=== PATIENT | male | born 1950 | race Caucasian/White ===

== ENCOUNTER → 2019-01-04 07:42 | Outpatient (CLI) | payer BC, SELFPAY ==
--- NOTE | 2019-01-04 07:48 | US_ITS ---
STUDY: ABDOMINAL ULTRASOUND - RIGHT UPPER QUADRANT REASON FOR VISIT: Male, 68 years old. Fatty liver, history of kidney stones TECHNIQUE: Ultrasound evaluation of the right upper quadrant was performed with real-time and static ozuna-scale imaging. TECHNICAL QUALITY: Adequate. COMPARISON: Prior ultrasound of the liver dated 11/12/2017 FINDINGS: Liver: The liver measures 15.9 cm. There is increased echogenicity consistent with fatty infiltration. The bile ducts are within normal limits. There is hepatic color flow. The direction of portal flow is hepatopetal. There is no demonstrated mass lesion. Gallbladder: Normal distended gallbladder. The gallbladder wall measures 2.6 mm. There is a negative sonographic Pineda's sign. There is no pericholecystic fluid. There are no gallstones. Common Bile Duct (C.B.D.): The common bile duct measures 3.2 mm. Pancreas: Normal size of the head, body and tail of the pancreas. There is increased echogenicity of the pancreas. There is no demonstrated pancreatic mass or cyst. Right Kidney: Normal size of the right kidney. The right kidney measures 11.4 x 5.9 x 5.1 cm. Normal renal cortex. The right cortex measures 1.1 cm. There is a right renal cyst measuring 4.7 x 5.1 x 4.2 cm. There are 2 right renal calculi measuring 3 and 5 mm respectively. There is no right hydronephrosis. US/Liver IMPRESSION: 1. Hepatic steatosis. 2. Echogenic pancreas suggestive of fatty replacement. 3. Right renal cyst. 4. Nonobstructing right renal calculi. Electronically Signed: Dmitriy Olmedo MD at 20:07 EST , Service support ,
== END ==
PROVIDERS: Family Provider Internal Medicine; PCP Internal Medicine; Referring Provider Internal Medicine; Visit Provider Internal Medicine
DX: K76.0 Fatty (change of) liver, not elsewhere classified (principal)
CPT/HCPCS: 76705

== ENCOUNTER → 2019-02-23 12:29 | Outpatient (CLI) | payer SELFPAY ==
--- NOTE | 2019-02-23 12:32 | CT_ITS ---
STUDY: CT CHEST WITHOUT CONTRAST REASON FOR EXAM: Male, 68 years old. Hyperlipidemia. Calcium scoring examination. Radiological over read study. RADIATION DOSAGE (If Supplied By Facility): CTDIvol = ( 12.19 ) mGy, DLP = ( 195.04 ) mGycm TECHNIQUE: Transaxial imaging was performed without the administration of intravenous contrast material. Individualized dose optimization techniques were used for this CT. COMPARISON: Comparison is made with prior study to July 30, 2016. FINDINGS: Stable increased markings at the lung bases with dense of bronchiectasis suggestive of chronic interstitial fibrosis. There is no demonstrated pleural abnormality. There are calcifications of the coronary arteries. There are multiple small lymph nodes within the mediastinum, which are normal in size and morphology most compatible with reactive lymph hyperplasia. Normal hilar regions. Normal unenhanced pulmonary arteries. There is atherosclerotic calcification of the aortic arch. There are multi-level degenerative changes of the thoracic spine. There is no demonstrated abnormality of the visualized upper abdomen. CT/Limited Chest CT w/CCTA IMPRESSION: Stable scarring and bronchiectasis in the lower lobes worse on the left side with areas of confluence. Coronary artery calcification. Electronically Signed: Harinder Melton, at 14:46 EDT , Service support ,
[2019-02-23 12:40] VITALS: BP 119/80; PULSE 56; RESP 16; O2SAT 96; BMI 28.4
--- NOTE | 2019-02-23 13:54 | CA.SCORE ---
Calcium Scoring Date of Study:: 02/23/19 Coronary Calcium Scoring: High-resolution Computed Tomographic imaging of the chest was performed on [02/23/2019 ], with particular attention paid to the coronary arteries. Images from the examination were analyzed for the presence and extent of coronary artery calcification , using coronary calcium quantification software. The patient tolerated the procedure well and there were no complications. The results of the coronary calcification analysis are provided below. - Findings Left Main (LM): 109 Left Anterior Descending (LAD): 38.1 Left Circumflex (LCX): 0 Right Coronary Artery (RCA): 212 Total Agatston Score: 359 - Conclusion Calcium Scoring Interpretation: Calcium Score Interpretation 0 No identifiable atherosclerotic plaque. Very low cardiovascular disease risk. <5% chance of presence coronary artery disease A Negative Examination 1-10 Minimal Plaque burden. Significant coronary artery disease very unlikely. 11-100 Mild plaque burden. Likely mild or minimal coronary atherosclerosis. 101-400 Moderate plaque burden Moderate non-obstructive coronary artery disease highly likely. Over 400 Extensive plaque burden. High likelihood of at least one significant coronary stenosis (>50% diameter) Coronary calcium score of 359 falls within the range of 101-400. This suggest moderate plaque burden, moderate nonobstructive coronary artery disease is highly likely. The total calcium score is between the 50th and 70th percentile for men between the ages of 65 and 69. (Exact percentile calculated to be 60%; this means 59% of the population has a lower calcium score and 40% of the population is a higher calcium score than this patient. Would recommend clinical correlation or alternative mode of testing if coronary occlusive disease is strongly suspected.
== END ==
PROVIDERS: Family Provider Internal Medicine; PCP Internal Medicine; Referring Provider Internal Medicine; Visit Provider Internal Medicine
DX: E78.5 Hyperlipidemia, unspecified (principal)
CPT/HCPCS: 75571; 76380

== ENCOUNTER 2019-03-16 19:47 | Emergency (ER) | payer BC, SELFPAY ==
[2019-02-23 12:40] VITALS: BMI 28.4
[2019-03-16 19:49] VITALS: BP 141/98; PULSE 70; PULSE 74; RESP 15; RESP 18; TEMP 36.8; O2SAT 96; O2SAT 97; BMI 28.7
--- NOTE | 2019-03-16 20:40 | CT_ITS ---
STUDY: CT ABDOMEN AND PELVIS WITHOUT CONTRAST REASON FOR EXAM: Male, 68 years old. LT FLANK Pain, has KNOWN BILATERAL KIDNEY STONES RADIATION DOSAGE (If Supplied By Facility): CTDIvol = ( 9.61 ) mGy, DLP = ( 566.94 ) mGycm TECHNIQUE: Transaxial images were obtained from the dome of the diaphragm to the symphysis pubis without oral contrast, and without intravenous contrast. Sagittal and coronal images were reconstructed. Individualized dose optimization techniques were used for this CT. COMPARISON: None. FINDINGS: Limited views through the lower chest show prominent streaky densities consistent with subsegmental atelectasis and/or scarring. Normal liver. Normal gallbladder and extrahepatic biliary system. Normal spleen. Normal pancreas. Normal bilateral adrenal glands. Both kidneys show very numerous renal stones in all segments. On the right, no acute abnormalities are seen. Numerous stones are seen in all segments measuring as much as 6 mm. There is a 5 cm posterior cyst. There is no hydronephrosis. On the left there is enlargement of the kidney consistent with edema. There is perinephric stranding. There is mild hydronephrosis. There is mild hydroureter. Findings are related to a 4 mm distal left ureteral calculus just prior to the UVJ, seen on axial image 179 and coronal image 84. Numerous additional nonobstructing stones are seen in all segments measuring as much as 3 mm. Evaluation of the GI tract is limited by absence of oral contrast. Cannot exclude stomach wall thickening. No dilated loops of bowel or evidence for obstruction. Cannot exclude segmental thickening of the hill of the small or large bowel. Cannot exclude enteritis or colitis. Moderate diffuse fecal retention. Appendix is not seen. Normal abdominal aorta. Normal inferior vena cava. Normal retroperitoneum. Normal urinary bladder. There is enlargement of the prostate gland. Normal abdominal wall. There are diffuse degenerative changes of the visualized lumbar spine. CT/Abdomen/Pelvis without Cont IMPRESSION: Obstruction of the left kidney collecting system and ureter from a 4 mm distal ureteral calculus. Very numerous other bilateral renal stones in all segments. Electronically Signed: Tomasz Hicks MD at 21:43 EDT , Service support ,
--- NOTE | 2019-03-16 20:51 | ED.VISSUMM ---
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 that condition is stable while there because of the flank pain he had a CT that showed multiple kidney stones in left kidney and 1 3 mm stone in the lower area of his abdomen per his history, he has a prior history of kidney stones 2 or 3 years ago, his general health and other medical conditions are unremarkable and stable, his only complaint right now is left flank pain Physical Examination: [] Vital signs unremarkable afebrile General, no distress resting comfortably HEENT is generally unremarkable The neck is supple no adenopathy Cardiovascular, regular rate and rhythm Lungs, clear bilateral Abdomen, soft nontender but complains of vague left flank pain left upper back around the flank into the left lower abdomen with no rebound guarding organomegaly Extremities, no clubbing cyanosis or edema Neurologic, awake alert answering questions appropriately moving all 4 extremities Test Results: [] Emergency Department Course and Treatment: [] Prior CT showed the above given all the above screening labs no prior imaging at this facility repeat CT pain management Treatment Plan: [] Screening labs generally unremarkable except creatinine is 1.95, elevated from 1.25 baseline,see those reports, CT scan shows numerous kidney stones in the kidney, 4 mm obstructing stone left UVJ see all those reports on reevaluation is resting comfortably discussed all the above with him he is comfortable discharge home he will be given Percocet flow max and asked to follow-up with [facility] in a few days return for change in symptoms Disposition: [] Home stable Impression: [] 4 mm left obstructing kidney stone, left flank pain This note was generated with [employer] software. It may contain incorrect words, spelling, and punctuation that were not noted in review of the chart prior to signing ED Disposition - Plan for ED Patient: Referrals: Tanya Pettit, [Primary Care Provider] -
[2019-03-16 20:52] LABS: Bacteria 0 SEEN /hpf (None Seen); Mucous, Urine 0 SEEN /hpf (<or=2+); Red Blood Cells-Urine 0 SEEN /hpf (0-5); White Blood Cells 0 SEEN /hpf (0-5)
[2019-03-16] MEDS: Ondansetron 4 MG/2 ML Vial IV (20:53)
[2019-03-16] MEDS: morphine 8 MG/ML Syringe IV (20:53)
[2019-03-16 21:01] LABS: Color, Urine Yellow (Yellow); Glucose, Dipstick Normal (Normal); Ketone-Dipstick 5 mg/dl (Negative); Leukocyte Esterase-Dipstick Negative /ul (Negative); Nitrite-Dipstick Negative (Negative); Occult Blood-Urine Negative /ul (Negative); Protein-Dipstick Negative (Negative); Specific Gravity, Urine 1.015 (1.002-1.030); Urine Bilirubin Dipstick Negative (Negative); Urine Clarity Clear (Clear); Urine Urobilinogen Normal (Normal)
[2019-03-16 21:13] LABS: Absolute Lymphocyte Count 0.52 X10^3/ul (0.83-4.51); Absolute Neutrophil Count 10.2 X10^3/uL (2.0-7.7); Basophil# 0.03 X10^3/uL; Basophil% 0.2 % (0-1); Eosinophil# 0.11 X10^3/uL; Eosinophils% 0.9 % (0-5); Hematocrit 48.5 % (40-54); Lymphocyte # 0.52 X10^3/ul (4.0); Lymphocyte % 4.3 % (19-41); Mean Corpuscular Hgb 30.1 pg (27.0-32.0); Mean Corpuscular Volume 91.3 fL (80-94); Mean Platelet Vol. 9.4 fl (6.2-12.0); Monocyte# 1.29 X10^3/uL; Monocyte% 10.6 % (0-10); Neutrophil # 10.16 X10^3/uL (2.7-7.7); Neutrophil % 83.6 % (47-70); Platelet Count 246 K/mm3 (150-450); RBC Distribution Width CV 14.1 % (11.6-14.6); RBC Distribution Width SD 46.4 fl (35.1-43.9); Red Blood Count 5.31 M/mm3 (4.6-6.2); White Blood Count 12.2 K/mm3 (4.4-11.0)
[2019-03-16 21:14] LABS: Differential Indicated SCAN CRITERIA MET; POSITIVE COUNT NO; POSITIVE DIFFERENTIAL YES; POSITIVE MORPHOLOGY NO
[2019-03-16 21:30] LABS: Squamous Epithelial Cells - UA 0-5 SEEN /hpf (0-5)
[2019-03-16 21:33] LABS: AST(SGOT) 11 U/L (15-37); Alanine Aminotransfer ALT/SGPT 20 U/L (16-61); Albumin, Serum 3.9 g/dL (3.2-5.0); Alkaline Phosphatase 63 U/L (45-117); Anion Gap 7 (5-15); BUN 20 mg/dL (7-18); BUN/Creat Ratio 10.3 RATIO (10-20); Bilirubin, Direct 0.25 mg/dL (0.00-0.30); Calcium,Total 8.7 mg/dL (8.5-10.1); Chloride 104 mmol/L (98-107); Creatinine, Serum 1.95 mg/dL (0.70-1.30); EST Glomerular Filtration Rate 37 mL/min (>60); Est Glom Filt Rate - Afr Amer 44 mL/min (>60); Estimated Creatinine Clearance 38.48 ml/min; Globulin 3.7 g/dL (2.2-4.2); Glucose 103 mg/dL (74-106); Lipase 104 U/L (73-393); Potassium 4.1 mmol/L (3.5-5.1); Protein, Total 7.6 g/dL (6.4-8.2); Sodium Level 139 mmol/L (136-145)
[2019-03-16 21:34] LABS: Differential Comment SCANNED
[2019-03-16 21:48] VITALS: BP 135/76; PULSE 83; RESP 14; O2SAT 99
--- NOTE | 2019-03-16 22:14 | ED.DEP ---
ED Disposition - Plan for ED Patient: Instructions: ED Stone Renal W Colic Prescriptions: Oxycodone HCl/Acetaminophen [Percocet 5/325] 1 tab PO Q6H PRN PRN 3 Days #12 tab PRN Reason: Pain Tamsulosin HCl [Flomax] 0.4 mg PO DAILY #7 cap Referrals: Tanya Pettit DO [Primary Care Provider] - Devon Bullard MD [STAFF PHYSICIAN] -
[2019-03-16] MEDS: Ketorolac 30 MG/ML Syringe IV (22:30)
[2019-03-16 22:43] VITALS: BP 131/76; PULSE 81; RESP 12; O2SAT 98
== END 2019-03-16 22:44 | disposition home or self-care (01) ==
LOC: ED 20:54
PROVIDERS: Emergency Provider Emergency Medicine; Family Provider Internal Medicine; PCP Internal Medicine
DX: N13.2 Hydronephrosis with renal and ureteral calculous obstruction (principal); Z87.442 Personal history of urinary calculi
CPT/HCPCS: 74176; 80048; 80076; 81001; 83690; 85025; 96374; 96375; 99283; A4216; J2405

== ENCOUNTER → 2019-03-23 | Outpatient (CLI) | payer BC, SELFPAY ==
[2019-03-16 19:49] VITALS: BMI 28.7
[2019-03-30 12:07] LABS: Ca Oxalate, Monohydrate 95 % (.); Size 3x3x3 mm (.)
== END | disposition home or self-care (01) ==
LOC: LABSPEC 17:04
PROVIDERS: Family Provider Internal Medicine; PCP Internal Medicine; Referring Provider Urology; Visit Provider Urology
DX: N20.0 Calculus of kidney (principal)
CPT/HCPCS: 82360

== ENCOUNTER 2019-09-16 15:24 | Emergency (ER) | payer BC, SELFPAY ==
[2019-09-16 15:24] VITALS: BP 161/83; PULSE 103; RESP 16; TEMP 37.4; O2SAT 96; BMI 29.2
--- NOTE | 2019-09-16 15:40 | CT_ITS ---
STUDY: CT ABDOMEN AND PELVIS WITHOUT CONTRAST REASON FOR EXAM: Male, 68 years old. Right-sided abdominal pain for 2 days with history of kidney stones RADIATION DOSAGE (If Supplied By Facility): CTDIvol = ( 11.15 ) mGy, DLP = ( 646.09 ) mGycm TECHNIQUE: Transaxial images were obtained from the dome of the diaphragm to the symphysis pubis without oral contrast, and without intravenous contrast. Sagittal and coronal images were reconstructed. Individualized dose optimization techniques were used for this CT. COMPARISON: 03/16/2019 FINDINGS: There are chronic interstitial fibrotic changes of the lung bases. The visualized portions of the heart are within normal limits. Normal liver. Normal gallbladder and extrahepatic biliary system. Normal spleen. Normal pancreas. Normal bilateral adrenal glands. Bilateral renal calculi overall similar. There is mild right hydronephrosis with a 3 mm calculus just above the right UVJ on image 182. Simple cyst of the medial right kidney is stable. Normal visualized stomach. Normal small intestine. The colon is nondistended. There is non-visualization of the appendix. There is diffuse atherosclerotic calcification of the abdominal aorta, without a demonstrated aneurysm. Normal inferior vena cava. Normal retroperitoneum. Urinary bladder is nondistended. Bladder wall thickening cannot be excluded. There is enlargement of the prostate gland. Normal abdominal wall. There are diffuse degenerative changes of the visualized lumbar spine. Similar degenerative retrolisthesis of L3 in relation to L4. CT/Abdomen/Pelvis without Cont IMPRESSION: 1. Distal right ureter calculus (3 mm) with mild hydronephrosis/hydroureter 2. Bilateral nephrolithiasis. Electronically Signed: Justice Rose MD (Bro[place]) at 16:47 EDT , Service support ,
[2019-09-16] MEDS: 0.9% Normal Saline 1,000 ML 250 ML IV (15:54)
--- NOTE | 2019-09-16 15:58 | ED.DCSUM_ITS ---
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 Patient states the pain started on , 2 days ago. It has been constant but waxes and wanes in intensity. It radiates up into his back as well as into his groin. He feels that he is been urinating more frequently. Patient has seen Dr. Bullard in the past for his kidney stones. He is never required instrumentation to pass them. Patient states he came in because he is post to go out of town to [place] tomorrow for work and did not want to travel if there is something more serious going on. Patient denies any fever or chills. He states he is on Bactrim 3 days a week empirically for his lungs. He also takes regular prednisone as well as another immunosuppressant. He denies any other complaints at this time. Past Medical History - Allergies and Home Meds Allergies/Adverse Reactions: Allergies Penicillins [PCN] Allergy (Verified 09/16/19 15:24) Rash tamsulosin [From Flomax] Adverse Reaction (Verified 09/16/19 15:25) Other Primary Care Physician: Tanya Pettit DO [Primary Care Provider] - Past Medical History: - - Autoimmune lung disease, kidney stones Surgical History: herniorrhaphy Smoking Status: Never smoker - Family History Maternal Family History: Reports: Hypertension Paternal Family History: Reports: No pertinent history Review of Systems All systems negative except as indicated Gastrointestinal: Reports: Abdominal pain - right flank Genitourinary: Reports: Frequency Physical Exam Vital Signs/Narrative: Vital Signs Temp Pulse Resp BP Pulse Ox 09/16/19 15:24 99.4 F H 103 H 16 161/83 H 96 Inital Vital Signs reviewed: Yes General: Well nourished, Well developed, No Acute Distress Head: Normocephalic, Atraumatic Eyes: Perrl, EOMI ENT: Moist mucous membranes, No rhinorrhea Neck: Supple, Nontender Cardiovascular: Regular rate, Regular rhythm, No murmurs Respiratory: No distress, CTA bilaterally, Chest nontender Abdomen: Soft, Nontender, Nondistended, Normal bowel sounds Back: Nontender, Normal Inspection. Negative for: CVA tenderness Extremities: Nontender, No edema Skin: Normal color, No rash Neurological: Alert, Oriented x3, Cranial nerves II-XII grossly intact, Normal Strength, Normal Sensation Psychological: Normal affect, Normal Mood Diagnostic/Tx/Re-eval Clinical Impression(s) from Imaging Studies Abdomen/Pelvis CT 09/16/19 15:40 IMPRESSION: 1. Distal right ureter calculus (3 mm) with mild hydronephrosis/hydroureter 2. Bilateral nephrolithiasis. Electronically Signed: Justice Rose MD ([place]) at 16:47 EDT , Service support , Laboratory Data 09/16/19 09/16/19 09/16/19 16:01 16:01 16:27 WBC 11.2 H RBC 5.17 Hgb 15.6 Hct 47.6 MCV 92.1 MCH 30.2 MCHC 32.8 RDW Std Deviation 45.2 H RDW Coeff of Opal 13.2 Plt Count 245 MPV 9.2 Immature Gran % (Auto) 0.600 Neut % (Auto) 83.8 H Lymph % (Auto) 4.5 L Isabella % (Auto) 9.9 Eos % (Auto) 0.6 Baso % (Auto) 0.6 Absolute Neuts (auto) 9.4 H Absolute Lymphs (auto) 0.50 L Nucleated RBC % 0 Differential Comment SCANNED Platelet Estimate ADEQUATE Plt Morphology Comment COMMENT Priyanka Cells RARE Sodium 140 Potassium 3.9 Chloride 107 Carbon Dioxide 26.0 Anion Gap 7 BUN 18 Creatinine 1.91 H Estim Creat Clear Calc 39.28 Est GFR (MDRD) Af Amer 45 L Est GFR (MDRD) Non-Af 38 L BUN/Creatinine Ratio 9.4 L Glucose 100 Calcium 8.8 Urine Color Yellow Urine Clarity Clear Urine pH 6.0 Ur Specific [place] 1.015 Urine Protein Negative Urine Glucose (UA) Normal Urine Ketones 15 H Urine Occult Blood Negative Urine Nitrite Negative Urine Bilirubin Negative Urine Urobilinogen Normal Ur Leukocyte Esterase Negative Urine RBC 0 SEEN Urine WBC 0 SEEN Ur Squamous Epith Cells 0-5 SEEN Urine Bacteria 0 SEEN Urine Mucus 0 SEEN - Medical Decision Making Patient is evaluated for multiple days of right-sided flank pain. He appears nontoxic in no acute distress. He has stable vital signs. Patient declines pain medication in the emergency room. Patient states he is especially concerned because he does have a history of obstructing stones and is supposed to go out of town for work tomorrow. CT of the abdomen pelvis is performed which does show a 3 mm stone at the UVJ. Patient is counseled that he is a stone which is likely causing his pain and should pass spontaneously very soon. Again patient declines any pain medication. Patient does have a mildly elevated creatinine but chart review shows he had the same creatinine earlier this year. I suspect this is his baseline. Patient is counseled that he should follow-up with his PCP for further monitoring of his renal function. Patient is instructed to follow-up with his urologist as needed. He has no sign of urine infection. Patient is counseled on signs and symptoms requiring return to the emergency room. Patient verbalizes agreement and understand this plan. Patient discharged home in stable and improved condition. ED Disposition - Plan for ED Patient: Disposition: Home or Assisted Living Diagnosis: Right distal ureteral calculus Instructions: KIDNEY STONE w/ Colic Referrals: Tanya Pettit, [Primary Care Provider] - Additional Instructions: You have a 3 mm kidney stone on the right that looks like it is about to pass. Take medication you have at home for pain as needed. Your creatinine today was 1.94. Please discuss this with your primary care doctor.
[2019-09-16 16:06] LABS: Absolute Neutrophil Count 9.4 X10^3/uL (2.0-7.7); Basophil# 0.07 X10^3/uL; Basophil% 0.6 % (0-1); Eosinophil# 0.07 X10^3/uL; Eosinophils% 0.6 % (0-5); Hematocrit 47.6 % (40-54); Hemoglobin 15.6 g/dL (13.0-16.5); Lymphocyte % 4.5 % (19-41); Mean Corp Hgb Conc 32.8 g/dL (32-36); Mean Corpuscular Hgb 30.2 pg (27.0-32.0); Mean Corpuscular Volume 92.1 fL (80-94); Mean Platelet Vol. 9.2 fl (6.2-12.0); Monocyte# 1.11 X10^3/uL; Monocyte% 9.9 % (0-10); NRBC Flagged by Analyzer 0 % (0-5); Neutrophil % 83.8 % (47-70); POSITIVE DIFFERENTIAL YES; Platelet Count 245 K/mm3 (150-450); RBC Distribution Width CV 13.2 % (11.6-14.6); RBC Distribution Width SD 45.2 fl (35.1-43.9); Red Blood Count 5.17 M/mm3 (4.6-6.2); White Blood Count 11.2 K/mm3 (4.4-11.0)
[2019-09-16 16:11] LABS: Differential Indicated SCAN CRITERIA MET
[2019-09-16 16:21] LABS: Anion Gap 7 (5-15); BUN 18 mg/dL (7-18); BUN/Creat Ratio 9.4 RATIO (10-20); Calcium,Total 8.8 mg/dL (8.5-10.1); Chloride 107 mmol/L (98-107); Creatinine, Serum 1.91 mg/dL (0.70-1.30); EST Glomerular Filtration Rate 38 mL/min (>60); Est Glom Filt Rate - Afr Amer 45 mL/min (>60); Estimated Creatinine Clearance 39.28 ml/min; Glucose 100 mg/dL (74-106); Potassium 3.9 mmol/L (3.5-5.1); Sodium Level 140 mmol/L (136-145)
[2019-09-16 16:32] LABS: Bacteria 0 SEEN /hpf (None Seen); Mucous, Urine 0 SEEN /hpf (<or=2+); Red Blood Cells-Urine 0 SEEN /hpf (0-5); White Blood Cells 0 SEEN /hpf (0-5)
[2019-09-16 16:41] LABS: Color, Urine Yellow (Yellow); Glucose, Dipstick Normal (Normal); Ketone-Dipstick 15 mg/dl (Negative); Leukocyte Esterase-Dipstick Negative /ul (Negative); Nitrite-Dipstick Negative (Negative); Occult Blood-Urine Negative /ul (Negative); Protein-Dipstick Negative (Negative); Specific Gravity, Urine 1.015 (1.002-1.030); Urine Bilirubin Dipstick Negative (Negative); Urine Clarity Clear (Clear); Urine Urobilinogen Normal (Normal)
[2019-09-16 16:49] LABS: Squamous Epithelial Cells - UA 0-5 SEEN /hpf (0-5)
[2019-09-16 16:50] LABS: Differential Comment SCANNED; Platelet Estimate ADEQUATE (ADEQ)
[2019-09-16 16:51] LABS: Burr Cells RARE
[2019-09-16 17:50] VITALS: RESP 18
== END 2019-09-16 17:52 | disposition home or self-care (01) ==
PROVIDERS: Emergency Provider Emergency Medicine; Family Provider Internal Medicine; PCP Internal Medicine
DX: N13.2 Hydronephrosis with renal and ureteral calculous obstruction (principal); Z87.442 Personal history of urinary calculi
CPT/HCPCS: 74176; 80048; 81001; 85025; 96360; 96361; 99283; J7030

== ENCOUNTER → 2019-09-29 15:09 | Outpatient (CLI) | payer BC, SELFPAY ==
[2019-09-16 15:24] VITALS: BMI 29.2
--- NOTE | 2019-09-29 15:19 | RAD_ITS ---
STUDY: X-RAY CHEST REASON FOR EXAM: Male, 68 years old. Abnormal lung sounds. TECHNIQUE: PA and lateral views of the chest. COMPARISON: 12/01/2017. FINDINGS: The lungs are underexpanded with bilateral basilar atelectasis, remainder of the lungs are clear. There is mild vascular crowding. No pleural effusion. Normal size heart. Normal mediastinum and tete. Normal visualized pulmonary arteries. There is atherosclerotic calcification of the aortic arch with tortuosity. There are diffuse degenerative changes of the visualized thoracic spine. There is degenerative osteoarthritis of the bilateral shoulders. There is no demonstrated abnormality of the visualized soft tissue structures of the upper abdomen. RAD/Chest PA and Lateral IMPRESSION: Bilateral basilar atelectasis, otherwise no acute process identified. Electronically Signed: Rae Dooley MD at 1:39 EST , Service support ,
== END ==
PROVIDERS: Family Provider Internal Medicine; PCP Internal Medicine; Referring Provider Internal Medicine; Visit Provider Internal Medicine
DX: R09.89 Other specified symptoms and signs involving the circulatory and respiratory systems (principal)
CPT/HCPCS: 71046

== ENCOUNTER → 2019-10-05 09:14 | Outpatient (CLI) | payer BC, SELFPAY ==
[2019-09-16 15:24] VITALS: BMI 29.2
--- NOTE | 2019-10-05 09:20 | BD_ITS ---
STUDY: DUAL ENERGY X-RAY ABSORPTIOMETRY / DXA REASON FOR EXAM: Male, 68 years old. History of osteopenia. Prednisone use. TECHNIQUE: Bone Mineral Density (BMD) measurements of lumbar spine and bilateral hips were obtained. COMPARISON: Comparison is made with prior study dated November 02, 2017. FINDINGS: Lumbar Spine (L1-L4): g/cm2 (1.266) / T-score (0.5) / Z-score (0.9) Findings are suggestive of normal bone density with a low fracture risk. Left Femur Total: g/cm2 (0.790) / T-score (-2.2) / Z-score (-1.6) Left Femoral Neck: g/cm2 (0.728) / T-score (-2.6) / Z-score (-1.5) Right Femur Total: g/cm2 (0.839) / T-score (-1.8) / Z-score (-1.2) Right Femoral Neck: g/cm2 (0.713) / T-score (-2.7) / Z-score (-1.6) The T-Scores on the most recent prior examination were: Lumbar Spine (L1-L4): There has been improvement of bone density since the previous examination. Left Femur Total: which represents a worsening of 1.5%. Right Femur Total: which represents a worsening of 0.9%. BD/Dexa Bone Density Study IMPRESSION: The patient is considered osteoporotic as outlined below according to World [place] Organization (WHO) criteria with a high fracture risk. There has been worsening of bone density since the previous examination. Reference Information: The T-score is the number of standard deviations above or below the standard which is normal for young adults at their peak bone mineral density. The World Health Organization (WHO) interprets the T-scores as follows: Above -1 Normal bone density Between -1 and -2.5 Osteopenia Equal to / or below -2.5 Osteoporosis As a practical clinical guideline, osteopenia may be graded as follows: Mild -1 through -1.5 Moderate -1.6 through -2.0 Severe -2.1 through -2.4 The Z-score is the number of standard deviations above or below age-matched controls. A Z-score of less than -1.5 would be considered abnormal. References: 1. NIH Osteoporosis and Related Bone Diseases http://www.osteo.org 2. International Society for Clinical Densitometry http://www.iscd.org 3. National Osteoporosis Foundation http://www.nof.org Electronically Signed: Harinder Melton, at 15:04 EST , Service support ,
== END ==
PROVIDERS: Family Provider Internal Medicine; PCP Internal Medicine; Referring Provider Internal Medicine; Visit Provider Internal Medicine
DX: M81.0 Age-related osteoporosis without current pathological fracture (principal)
CPT/HCPCS: 77080

== ENCOUNTER → 2019-11-01 11:11 | Outpatient (CLI) | payer BC, SELFPAY ==
[2019-11-05 03:06] LABS: Clam <0.10 kU/L (Class 0); Codfish <0.10 kU/L (Class 0); Corn <0.10 kU/L (Class 0); Egg, White <0.10 kU/L (Class 0); Milk (Cow) <0.10 kU/L (Class 0); Peanut <0.10 kU/L (Class 0); SCALLOP <0.10 kU/L (Class 0); Shrimp <0.10 kU/L (Class 0); Soybean <0.10 kU/L (Class 0); Walnut, (Food) <0.10 kU/L (Class 0); Wheat <0.10 kU/L (Class 0)
[2019-11-05 08:07] LABS: Alternaria tenuis <0.10 kU/L (Class 0); Ash, White <0.10 kU/L (Class 0); Aspergillus fumigatus <0.10 kU/L (Class 0); Bermuda Grass <0.10 kU/L (Class 0); Birch <0.10 kU/L (Class 0); Black Walnut <0.10 kU/L (Class 0); Cat Hair / Dander,Stand <0.10 kU/L (Class 0); Cedar, Mountain <0.10 kU/L (Class 0); Cladosporium herbarum <0.10 kU/L (Class 0); Cockroach, American <0.10 kU/L (Class 0); Cottonwood <0.10 kU/L (Class 0); D farinae Mite <0.10 kU/L (Class 0); D pteronyssinus <0.10 kU/L (Class 0); Dog Epithelia <0.10 kU/L (Class 0); Elm, American White <0.10 kU/L (Class 0); Immunoglobulin E 8 IU/mL (6-495); Maple/Box Elder <0.10 kU/L (Class 0); Mulberry, White <0.10 kU/L (Class 0); Oak, White <0.10 kU/L (Class 0); Pecan <0.10 kU/L (Class 0); Penicillium Notatum <0.10 kU/L (Class 0); Pigweed, Rough <0.10 kU/L (Class 0); Ragweed, Short/Common <0.10 kU/L (Class 0); Russian Thistle <0.10 kU/L (Class 0); Sheep Sorrel <0.10 kU/L (Class 0); Sycamore, American <0.10 kU/L (Class 0); Timothy Grass <0.10 kU/L (Class 0)
[2019-11-05 11:33] LABS: Immunoglobulin E 8 IU/mL (6-495)
[2019-11-05 11:35] LABS: Mouse Urine <0.10 kU/L (Class 0); SESAME SEED <0.10 kU/L (Class 0)
== END ==
PROVIDERS: Family Provider Internal Medicine; PCP Internal Medicine; Referring Provider Otolaryngology Otolaryngology/Facial Plastic Surgery; Visit Provider Otolaryngology Otolaryngology/Facial Plastic Surgery
DX: T78.40XA Allergy, unspecified, initial encounter (principal)
CPT/HCPCS: 36415; 82785; 86003

== ENCOUNTER → 2020-04-10 11:19 | Outpatient (CLI) | payer BC, SELFPAY ==
[2020-04-10] MEDS: DENOSUMAB 60 MG/ML SQ (11:31)
[2020-04-10 11:37] VITALS: BP 123/75; PULSE 86; RESP 16; TEMP 36.9; O2SAT 97; BMI 29.2
[2020-04-10 11:39] VITALS: BP 123/75; PULSE 86; RESP 16; TEMP 36.9; O2SAT 97
== END ==
PROVIDERS: PCP Internal Medicine; Referring Provider Internal Medicine; Visit Provider Internal Medicine
DX: M81.0 Age-related osteoporosis without current pathological fracture (principal)
CPT/HCPCS: 96372; J0897

== ENCOUNTER → 2020-04-11 08:52 | Outpatient (CLI) | payer BC, SELFPAY ==
[2020-04-10 11:37] VITALS: BMI 29.2
--- NOTE | 2020-04-11 08:55 | US_ITS ---
STUDY: ABDOMINAL ULTRASOUND - RIGHT UPPER QUADRANT REASON FOR VISIT: Male, 69 years old FATTY LIVER TECHNIQUE: Ultrasound evaluation of the right upper quadrant was performed with real-time and static ozuna-scale imaging. TECHNICAL QUALITY: Limited. Examination limited due to a combination of factors including obesity and bowel gas. COMPARISON: CT scan 09/16/2019. FINDINGS: Liver: The liver measures 15.7 cm. There is increased echogenicity consistent with fatty infiltration. The bile ducts are within normal limits. There is hepatic color flow. The direction of portal flow is hepatopetal. There is no demonstrated mass lesion. Gallbladder: Normal distended gallbladder. The gallbladder wall measures 2.8 mm. There is a negative sonographic Pineda''s sign. There is no pericholecystic fluid. There are no gallstones. Common Bile Duct (C.B.D.): The common bile duct measures 3.2 mm. Pancreas: Normal size of the head, body and tail of the pancreas. There is normal echogenicity of the pancreas. There is no demonstrated pancreatic mass or cyst. Right Kidney: Normal size of the right kidney. The right kidney measures 13.0 cm. Normal renal cortex. The right cortex measures 1.3 cm. There is a 5.3 cm mid renal cyst. There is a probable 6 mm nonobstructing right upper pole stone. There is no right hydronephrosis. US/Liver IMPRESSION: No definite acute abnormality. Nonobstructing right renal stone. Fatty liver. Electronically Signed: Tomasz Hicks MD at 17:34 EDT , Service support ,
== END ==
PROVIDERS: PCP Internal Medicine; Referring Provider Internal Medicine; Visit Provider Internal Medicine
DX: K76.0 Fatty (change of) liver, not elsewhere classified (principal)
CPT/HCPCS: 76705

== ENCOUNTER → 2020-05-02 09:21 | Outpatient (CLI) | payer BC, SELFPAY ==
[2020-04-10 11:37] VITALS: BMI 29.2
--- NOTE | 2020-05-02 09:27 | RAD_ITS ---
STUDY: X-RAY - ABDOMEN/PELVIS REASON FOR EXAM: Male, 69 years old. MULTIPLE KIDNEY STONES TECHNIQUE: Single AP view of the abdomen / pelvis. COMPARISON: None. FINDINGS: Mild increased markings at the lung bases suggestive of scarring with bronchiectasis. There is a moderate amount of colonic fecal material. At least 2 right renal calculi are seen. The larger is in the upper pole and measures 5.7 mm. Faint calcifications are also seen in the left kidney. Normal soft tissue structures. There are diffuse degenerative changes of the visualized lumbar spine. RAD/Abdomen Single View IMPRESSION: Bilateral nephro lithiasis more prominent on the right side. Electronically Signed: Harinder Melton, at 11:34 EDT , Service support ,
== END ==
PROVIDERS: PCP Internal Medicine; Referring Provider Nurse Practitioner Adult Health; Visit Provider Nurse Practitioner Adult Health
DX: N20.0 Calculus of kidney (principal)
CPT/HCPCS: 74018

== ENCOUNTER → 2020-08-08 07:47 | Outpatient (CLI) | payer BC, SELFPAY ==
[2020-04-10 11:37] VITALS: BMI 29.2
--- NOTE | 2020-08-08 08:00 | CT_ITS ---
STUDY: CT CHEST WITHOUT CONTRAST REASON FOR EXAM: Male, 69 years old. INTERSTITIAL LUNG DISEASE. HX OF HLD AND ASTHMA.PT STATES HE HAS A RARE AUTO IMMUNE DISORDER RADIATION DOSAGE (If Supplied By Facility): CTDIvol = ( 15.78 ) mGy, DLP = ( 593.47 ) mGycm TECHNIQUE: Transaxial imaging was performed without the administration of intravenous contrast material. Multiplanar coronal and sagittal images were reformatted. Individualized dose optimization techniques were used for this CT. COMPARISON: Comparison is made with prior study dated 02/23/2019. FINDINGS: Stable small benign appearing bilateral axillary lymph nodes. Stable increased markings with areas of confluence in both lower lobes more prominent on the left side with evidence of bronchiectasis in both lower lobes and/or honeycombing. This is essentially unchanged. Mild degree of increased interstitial markings in the lingular segment of the left upper lobe as well as in the right middle lobe and lateral aspect of the right upper lobe. This is superimposed on mild degree of emphysematous changes. There is no demonstrated pleural abnormality. There are calcifications of the coronary arteries. There are multiple small lymph nodes within the mediastinum, which are normal in size and morphology most compatible with reactive lymph hyperplasia. Normal hilar regions. Normal unenhanced pulmonary arteries. Normal aorta arch and descending thoracic aorta. There are degenerative changes of the thoracic spine. There is no demonstrated abnormality of the visualized upper abdomen. CT/Chest without Contrast IMPRESSION: Stable examination. Electronically Signed: Harinder Melton, at 9:38 EDT , Service support ,
== END ==
PROVIDERS: PCP Internal Medicine; Referring Provider Internal Medicine; Visit Provider Internal Medicine
DX: J84.9 Interstitial pulmonary disease, unspecified (principal)
CPT/HCPCS: 71250

== ENCOUNTER → 2021-01-09 13:58 | Outpatient (CLI) | payer BC, SELFPAY ==
[2020-04-10 11:37] VITALS: BMI 29.2
[2021-01-09 14:12] VITALS: BP 141/80; PULSE 96; RESP 16; TEMP 36.9; O2SAT 96; BMI 28.4
[2021-01-09] MEDS: DENOSUMAB 60 MG/ML SQ (14:19)
== END ==
PROVIDERS: PCP Internal Medicine; Referring Provider Internal Medicine; Visit Provider Internal Medicine
DX: M81.0 Age-related osteoporosis without current pathological fracture (principal)
CPT/HCPCS: 96372; J0897

== ENCOUNTER → 2021-02-27 07:43 | Outpatient (CLI) | payer BC, SELFPAY ==
[2021-01-09 14:12] VITALS: BMI 28.4
--- NOTE | 2021-02-27 07:45 | US_ITS ---
STUDY: ABDOMINAL ULTRASOUND - RIGHT UPPER QUADRANT REASON FOR VISIT: Male, 70 years old FATTY LIVER -- PT HAS ECHO AFTER US TECHNIQUE: Ultrasound evaluation of the right upper quadrant was performed with real-time and static ozuna-scale imaging. TECHNICAL QUALITY: Limited. COMPARISON: None. FINDINGS: Liver: The liver measures 15.4 cm. There is increased echogenicity consistent with fatty infiltration. The bile ducts are within normal limits. There is hepatic color flow. The direction of portal flow is hepatopetal. There is no demonstrated mass lesion. Gallbladder: Normal distended gallbladder. The gallbladder wall measures 2 mm. There is a negative sonographic Pineda''s sign. There is no pericholecystic fluid. There are no gallstones. Common Bile Duct (C.B.D.): The common bile duct measures 3 mm. Pancreas: The pancreas is somewhat obscured by overlying bowel gas. Right Kidney: Normal size of the right kidney. The right kidney measures 13.5 cm. Normal renal cortex. The right cortex measures 1.6 cm. There is a 4.5 x 4 x 5.5 cm simple cyst in the upper pole. There is no right hydronephrosis. US/Liver IMPRESSION: Fibrofatty infiltration of the liver. Normal gallbladder. Electronically Signed: Keshav Mcwilliams MD at 17:02 EDT Tel , Service support ,
--- NOTE | 2021-02-27 08:09 | ECHOD_ITS ---
Reason For Study: ABN EKG Procedure This was a 2D Doppler, Color Flow transthoracic echocardiogram. Exam performed in department. Left Ventricle Normal LV size. Left ventricular systolic function is normal. Normal diastology for age. No regional wall motion abnormalities noted. Right Ventricle Normal RV size. Normal systolic function. Atria Normal left atrium. Normal right atrium. Mitral Valve Normal mitral valve. Tricuspid Valve Normal tricuspid valve. Mild (1+) tricuspid valve insufficiency. Pulmonary artery systolic pressure is 30 mmHg. Aortic Valve Normal aortic valve. Trisinus/trileaflet aortic valve. Mild (1+) aortic valve insufficiency. Pulmonic Valve Normal pulmonic valve. Great Vessels Normal aortic root. The pulmonary artery is normal size. Inferior vena cava collapse with respiration. Pericardium/Pleural No pericardial effusion. MMode/2D Measurements & Calculations LVIDd: 4.6 cm IVSd: 0.77 cm Ao root diam: 3.7 cm LVIDs: 3.3 cm LVPWd: 0.90 cm RVDd: 3.2 cm FS: 28.6 % LAV(MOD-bp): 49.6 ml LVAd ap4: 34.1 cm2 SV(MOD-sp4): 59.7 ml LAV(MOD-bp) Indexed: 23.8 ml/m2 EDV(MOD-sp4): 107.0 ml LAV(MOD-sp2): 52.4 ml EDV(sp4-el): 112.5 ml LAV(MOD-sp4): 44.3 ml LVAs ap4: 20.2 cm2 ESV(MOD-sp4): 47.3 ml ESV(sp4-el): 49.6 ml EF(MOD-sp4): 55.8 % EF(sp4-el): 55.9 % SV(sp4-el): 62.9 ml LA A4 area: 18.4 cm2 LA dimension(2D): 4.5 cm RA A4 area: 13.3 cm2 Time Measurements MV dec time: 0.13 sec Doppler Measurements & Calculations MV E max bassem: 95.5 cm/sec Lat Peak E' Bassem: 10.2 cm/sec Med Peak E' Bassem: 6.2 cm/sec MV A max bassem: 67.4 cm/sec E/E' lat: 9.4 E/E' med: 15.4 MV E/A: 1.4 Ao V2 max: 145.1 cm/sec AI max bassem: 400.2 cm/sec LV V1 max: 108.4 cm/sec Ao max P.4 mmHg AI max P.1 mmHg LV V1 max P.7 mmHg AI dec slope: 213.5 cm/sec2 AI P1/2t: 549.0 msec PA V2 max: 98.0 cm/sec TR max bassem: 253.7 cm/sec TR max P.8 mmHg ECHO/Echo Complete Interpretation Summary Normal LV size. Left ventricular systolic function is normal. Normal diastology for age. The patient was noted to go into a short paroxysm of atrial fibrillation which spontaneously converted during the test. Mild (1+) aortic valve insufficiency. Structurally normal valves. Ordering Physician: Tanya Pettit Referring Physician: Tanya Pettit Performed By: Arpita Li, RDCS, RVT
== END ==
PROVIDERS: PCP Internal Medicine; Referring Provider Internal Medicine; Visit Provider Internal Medicine
DX: K76.0 Fatty (change of) liver, not elsewhere classified (principal); R94.31 Abnormal electrocardiogram [ECG] [EKG]
CPT/HCPCS: 76705; 93306

== ENCOUNTER → 2021-03-13 08:11 | Outpatient (CLI) | payer BC, SELFPAY ==
[2021-01-09 14:12] VITALS: BMI 28.4
== END ==
PROVIDERS: PCP Internal Medicine; Referring Provider Internal Medicine; Visit Provider Internal Medicine
DX: I48.91 Unspecified atrial fibrillation (principal)
CPT/HCPCS: 93225; 93226

== ENCOUNTER 2021-04-13 19:48 | Emergency (ER) | payer BC, SELFPAY ==
[2021-01-09 14:12] VITALS: BMI 28.4
[2021-04-13 19:48] VITALS: BP 150/97; PULSE 87; RESP 15; TEMP 37.2; O2SAT 95; BMI 29.5
--- NOTE | 2021-04-13 20:22 | CT_ITS ---
STUDY: CT ABDOMEN AND PELVIS WITHOUT CONTRAST REASON FOR EXAM: Male, 70 years old. Pain RADIATION DOSAGE (If Supplied By Facility): CTDIvol = ( 13.84 ) mGy, DLP = ( 826.34 ) mGycm TECHNIQUE: Transaxial images were obtained from the dome of the diaphragm to the symphysis pubis without oral contrast, and without intravenous contrast. Sagittal and coronal images were reconstructed. Individualized dose optimization techniques were used for this CT. COMPARISON: 09/16/2019. FINDINGS: Stable fibrotic changes in both lung bases. There is decreased attenuation of the liver consistent with steatosis. Normal gallbladder and extrahepatic biliary system. Normal spleen. Normal pancreas. Normal bilateral adrenal glands. Right kidney shows hydronephrosis and there is right hydroureter. Findings are related to a 9 mm distal right ureteral calculus seen on axial image 165 and coronal image 71. Numerous additional nonobstructing right renal stones are seen in all segments. Stable right 5.6 cm simple renal cyst. Left kidney shows no acute abnormalities. However, numerous nonobstructing stones are seen in all segments. Evaluation of the GI tract is limited by absence of oral contrast. Cannot exclude stomach wall thickening. No dilated loops of bowel or evidence for obstruction. Cannot exclude segmental thickening of the hill of the small or large bowel. Cannot exclude enteritis or colitis. Moderate diffuse fecal retention. Appendix within normal limits. There is diffuse atherosclerotic calcification of the abdominal aorta, without a demonstrated aneurysm. Normal inferior vena cava. Normal retroperitoneum. Normal urinary bladder. There is enlargement of the prostate gland. There is a right-sided inguinal hernia containing adipose tissue. There are diffuse degenerative changes of the visualized lumbar spine. CT/Abdomen/Pelvis without Cont IMPRESSION: Ultrasound the right kidney collecting system and ureter from a 9 mm distal right ureteral calculus. Numerous additional nonobstructing stones in all segments of both kidneys. Additional chronic findings as above. Electronically Signed: Tomasz Hicks MD at 21:17 EDT , Service support ,
--- NOTE | 2021-04-13 20:22 | ED.VIS.GI ---
HPI HPI - GI History of Present Illness Chief Complaint: Flank Pain Informant: patient Abdominal Pain/Flank Pain Onset: Days Timing: Intermittent Quality: Aching and Dull Maximum Severity: Mild Nausea/Vomiting/Emesis GI Symptom: Positive for Nausea and Vomiting Diarrhea/Melena/Hematochezia GI Symptom: Negative for Diarrhea Associated Symptoms Associated Symptoms: Negative for Dysuria, Frequency and Hematuria Narrative Narrative: 70-year-old male history of kidney stones. States that on Wednesday night he started having right flank pain. Intermittent. Associated nausea vomiting increased pain on . He denies any dysuria or hematuria. He denies any fever. He has had kidney stones in the past but is never needed any of them surgically removed. Prior similar symptoms: Yes Recent Illness/Hospitalization: No PFSH PFSH Home Medications montelukast 10 mg PO DAILY 10/23/15 [History Last Taken 10/22/15] Vitamin D3 6,000 units PO DAILY 08/07/17 [History Last Taken 08/06/17] pantoprazole 20 mg PO DAILY 08/07/17 [History Last Taken 08/06/17 20 mg] simvastatin 10 mg PO DAILY 08/07/17 [History Last Taken 08/06/17] Bactrim 400-80 mg Tablet 1 tab PO MOWEFR 09/16/19 [History Last Taken Unknown] mycophenolate mofetil 1,500 mg PO BID 09/16/19 [History Last Taken Unknown] prednisone 5 - 6 mg PO DAILY@0800 09/16/19 [History Last Taken Unknown] zinc 50 mg PO DAILY 01/09/21 [History Last Taken Unknown] hydrocodone-acetaminophen 1 tab PO Q4H PRN 3 Days #14 tab 04/13/21 [Rx Last Taken Unknown] ondansetron HCl [Zofran] 4 mg PO Q6H PRN #7 tab 04/13/21 [Rx Last Taken Unknown] Allergy/AdvReac Type Severity Reaction Status Date / Time Penicillins [PCN] Allergy Rash Verified 04/13/21 19:50 tamsulosin [From Flomax] AdvReac Other Verified 04/13/21 19:50 Social History Smoking Status: Never smoker ROS ROS ED ROS Narrative Flank pain with associated nausea and vomiting. Review of Systems ROS Unobtainable: Denies due to encephalopathy Constitutional Constitutional ED: Denies fever(s) ENT ENT ED: Denies ear pain or sore throat Cardiovascular Cardiovascular: Denies chest pain Respiratory/Chest Respiratory/Chest: Denies cough or dyspnea Gastrointestinal Gastrointestinal: Reports nausea and vomiting; Denies abdominal pain, constipation, diarrhea or melena Genitourinary Genitourinary ED: Denies dysuria, hematuria or urinary frequency Musculoskeletal Musculoskeletal: Reports back pain; Denies arthralgias or myalgias Integumentary Denies abscess or rash Neurologic Neurologic: Denies headache(s) Psychiatric Psychiatric: Denies depression Endocrine Endocrinology: Denies polyuria Hematologic/Lymphatic Hematologic/Lymphatic: Denies easy bruising Allergic/Immunologic Allergic/Immunologic ED: Denies urticaria EXAM Physical Exam Narrative Exam Narrative: 70 - year-old male no acute distress. Vital signs stable afebrile. Lungs are clear. Heart is regular rhythm no murmur. Abdomen soft nontender normal bowel sounds no peritoneal signs. Both the right upper and right lower quadrants are unremarkable. Back nontender. No CVA tenderness. Patient moving all 4 extremities. Neurovascular intact. Neurologic exam unremarkable. No focal motor weakness. Const Vital Signs: 04/13/21 19:48 Temperature 98.9 F Temperature Source Temporal Pulse Rate 87 Respiratory Rate 15 Blood Pressure 150/97 H Blood Pressure Mean 114 Pulse Ox 95 Oxygen Delivery Method Room Air Positive well nourished and well developed General Appearance ED: well developed HEENT Reports moist mucous membranes normocephalic and atraumatic Eyes PERRL and EOMs intact bilaterally Neck no lymphadenopathy, supple and no JVD Resp normal respiratory effort and clear to auscultation bilaterally Cardio regular rate, regular rhythm and no murmurs GI non-tender, non-distended and no masses Auscultation: normoactive bowel sounds Palpation: soft; Negative for tender or guarding Back/Spine no CVA tenderness General Back: Negative for CVA tenderness Extremity full ROM General Extremety ED: Negative for edema or tenderness General Extremity: Negative for edema Neuro moves all extremities Sensorium / Orientation: alert, oriented to person, oriented to place, oriented to time and orientation impaired Psych mental status grossly normal and thought process normal Skin Lesions: no lesions Rashes: no rashes MDM MDM MDM Narrative Medical decision making narrative: 70-year-old male history of kidney stones with right flank pain intermittent since Wednesday. Concern for kidney stone versus other etiologies of his pain. Clinically at this time it does not seem to be musculoskeletal. CAT scan labs and urinalysis are being obtained. Currently does not want anything for pain or nausea. Repeat exam the patient is doing well at 10 PM. Will be discharged to home with [place] for pain. Patient is doing well. Pain well controlled. He will be given a dose of IV morphine and Zofran prior to discharge. He knows return if he is feeling worse. Otherwise follow-up with his local urologist. Lab Data Attestation: I reviewed the patient's lab results. Lab results narrative: Urinalysis showed occult blood otherwise no signs of infection. Chemistries unremarkable other than creatinine was elevated at 1.4. CBC unremarkable. CAT scan of the abdomen pelvis shows right hydronephrosis and hydroureter with a distal 9 mm ureteral calculi. This will be discussed with the patient. Labs: Laboratory Results - last 24 hr 04/13/21 04/13/21 04/13/21 20:05 20:20 20:20 WBC Cancelled Corrected WBC Cancelled RBC Cancelled Hgb Cancelled Hct Cancelled MCV Cancelled MCH Cancelled MCHC Cancelled RDW Std Deviation Cancelled RDW Coeff of Opal Cancelled Plt Count Cancelled MPV Cancelled Immature Gran % (Auto) Cancelled Neut % (Auto) Cancelled Lymph % (Auto) Cancelled [place] % (Auto) Cancelled Eos % (Auto) Cancelled Baso % (Auto) Cancelled Absolute Neuts (auto) Cancelled Absolute Lymphs (auto) Cancelled Total Counted Cancelled Neutrophils % (Manual) Cancelled Band Neutrophils % Cancelled Lymphocytes % (Manual) Cancelled Monocytes % (Manual) Cancelled Eosinophils % (Manual) Cancelled Basophils % (Manual) Cancelled Metamyelocytes % Cancelled Myelocytes % Cancelled Promyelocytes % Cancelled Blast Cells % Cancelled Plasma Cell % (Manual) Cancelled Other Cells % Cancelled Nucleated RBC % Cancelled Nucleated RBCs/100 WBC Cancelled Differential Comment Cancelled Diff Path Review Cancelled Hypersegmented Neuts Cancelled Atypical Lymphocytes Cancelled Reactive Lymphocytes Cancelled Smudge Cells Cancelled Toxic Granulation Cancelled Toxic Vacuolation Cancelled Dohle Bodies Cancelled Yoni Rods Cancelled Platelet Estimate Cancelled Plt Morphology Comment Cancelled RBC Morphology Cancelled Polychromasia Cancelled Hypochromasia Cancelled Poikilocytosis Cancelled Basophilic Stippling Cancelled Anisocytosis Cancelled Microcytosis Cancelled Macrocytosis Cancelled Spherocytes Cancelled Sickle Cells Cancelled Target Cells Cancelled Tear Drop Cells Cancelled Ovalocytes Cancelled Stomatocytes Cancelled [place] Bodies Cancelled [place] Cells Cancelled Bite Cells Cancelled Crenated Cell Cancelled Acanthocytes (Spur) Cancelled Rouleaux Cancelled Schistocytes Cancelled Sodium 142 Potassium 4.1 Chloride 107 Carbon Dioxide 29.0 Anion Gap 6 BUN 18 Creatinine 1.41 H Estim Creat Clear Calc 50.14 Est GFR (MDRD) Af Amer 64 Est GFR (MDRD) Non-Af 53 L BUN/Creatinine Ratio 12.8 Glucose 95 Calcium 8.7 Urine Color Straw Urine Clarity Clear Urine pH 6.0 Ur Specific [place] 1.020 Urine Protein Negative Urine Glucose (UA) Normal Urine Ketones Negative Urine Occult Blood 25 H Urine Nitrite Negative Urine Bilirubin Negative Urine Urobilinogen Normal Ur Leukocyte Esterase 100 H Urine RBC 0-5 SEEN Urine WBC 0-5 SEEN Ur Squamous Epith Cells 0 SEEN Urine Bacteria 0 SEEN Urine Mucus RARE 04/13/21 21:08 WBC 10.3 Corrected WBC RBC 4.83 Hgb 14.3 Hct 44.3 MCV 91.7 MCH 29.6 MCHC 32.3 RDW Std Deviation 45.1 H RDW Coeff of Opal 13.3 Plt Count 255 MPV 9.4 Immature Gran % (Auto) 0.500 Neut % (Auto) 76.4 H Lymph % (Auto) 5.6 L [place] % (Auto) 13.4 H Eos % (Auto) 3.0 Baso % (Auto) 1.1 H Absolute Neuts (auto) 7.9 H Absolute Lymphs (auto) 0.57 L Total Counted Neutrophils % (Manual) Band Neutrophils % Lymphocytes % (Manual) Monocytes % (Manual) Eosinophils % (Manual) Basophils % (Manual) Metamyelocytes % Myelocytes % Promyelocytes % Blast Cells % Plasma Cell % (Manual) Other Cells % Nucleated RBC % 0 Nucleated RBCs/100 WBC Differential Comment Diff Path Review Hypersegmented Neuts Atypical Lymphocytes Reactive Lymphocytes Smudge Cells Toxic Granulation Toxic Vacuolation Dohle Bodies Yoni Rods Platelet Estimate Plt Morphology Comment RBC Morphology Polychromasia Hypochromasia Poikilocytosis Basophilic Stippling Anisocytosis Microcytosis Macrocytosis Spherocytes Sickle Cells Target Cells Tear Drop Cells Ovalocytes Stomatocytes [place] Bodies [place] Cells Bite Cells Crenated Cell Acanthocytes (Spur) Rouleaux Schistocytes Sodium Potassium Chloride Carbon Dioxide Anion Gap BUN Creatinine Estim Creat Clear Calc Est GFR (MDRD) Af Amer Est GFR (MDRD) Non-Af BUN/Creatinine Ratio Glucose Calcium Urine Color Urine Clarity Urine pH Ur Specific [place] Urine Protein Urine Glucose (UA) Urine Ketones Urine Occult Blood Urine Nitrite Urine Bilirubin Urine Urobilinogen Ur Leukocyte Esterase Urine RBC Urine WBC Ur Squamous Epith Cells Urine Bacteria Urine Mucus Radiography Diagnostic Testing: Radiology Impression Abdomen/Pelvis CT 04/13/21 20:22 IMPRESSION: Ultrasound the right kidney collecting system and ureter from a 9 mm distal right ureteral calculus. Numerous additional nonobstructing stones in all segments of both kidneys. Additional chronic findings as above. Electronically Signed: Tomasz Hicks MD at 21:17 EDT , Service support , Discharge Plan Triage Chief Complaint: Flank Pain ED Provider: Elias Barton Dx/Rx/DC Orders Clinical Impression: Kidney stone on right side Instructions: ED Kidney Stone w/ Colic Prescriptions: New hydrocodone-acetaminophen 5-325 mg tablet 1 tab PO Q4H PRN (Reason: pain) 3 Days Qty: 14 RF: 0 ondansetron HCl [Zofran] 4 mg tablet 4 mg PO Q6H PRN (Reason: nausea and vomiting) Qty: 7 RF: 0 No Action montelukast 10 MG tablet 10 mg PO DAILY RF: 0 pantoprazole 20 MG tablet 20 mg PO DAILY RF: 0 simvastatin 10 MG tablet 10 mg PO DAILY RF: 0 Vitamin D3 6,000 units PO DAILY RF: 0 mycophenolate mofetil 500 MG tablet 1,500 mg PO BID RF: 0 Bactrim 400-80 mg Tablet 1 tab PO MOWEFR RF: 0 prednisone 10 MG tablet 5 - 6 mg PO DAILY@0800 RF: 0 zinc 50 MG tablet 50 mg PO DAILY RF: 0 Primary Care Provider: Tanya Pettit Referrals: Tanya Pettit DO [Primary Care Provider] - Devon Bullard MD [STAFF PHYSICIAN] - As soon as possible Activity Restrictions/Additional Instructions: [place] for pain. Zofran for nausea. Return if increasing pain fever or intractable vomiting will not. Call and follow-up with Dr. José Manuel Bullard tomorrow. Disposition Disposition: Home, self care
[2021-04-13] MEDS: 0.9% Normal Saline 1,000 ML 1000 ML IV (20:27)
[2021-04-13 20:35] LABS: Bacteria 0 SEEN /hpf (None Seen); Squamous Epithelial Cells - UA 0 SEEN /hpf (0-5)
[2021-04-13 20:41] LABS: Color, Urine Straw (Yellow); Glucose, Dipstick Normal (Normal); Ketone-Dipstick Negative (Negative); Leukocyte Esterase-Dipstick 100 /ul (Negative); Nitrite-Dipstick Negative (Negative); Occult Blood-Urine 25 /ul (Negative); Protein-Dipstick Negative (Negative); Urine Bilirubin Dipstick Negative (Negative); Urine Clarity Clear (Clear); Urine Urobilinogen Normal (Normal)
[2021-04-13 20:48] LABS: Mucous, Urine RARE /hpf (<or=2+); Red Blood Cells-Urine 0-5 SEEN /hpf (0-5); White Blood Cells 0-5 SEEN /hpf (0-5)
[2021-04-13 20:50] LABS: Anion Gap 6 (5-15); BUN 18 mg/dL (7-18); BUN/Creat Ratio 12.8 RATIO (10-20); Calcium,Total 8.7 mg/dL (8.5-10.1); Chloride 107 mmol/L (98-107); Creatinine, Serum 1.41 mg/dL (0.70-1.30); EST Glomerular Filtration Rate 53 mL/min (>60); Est Glom Filt Rate - Afr Amer 64 mL/min (>60); Estimated Creatinine Clearance 50.14 ml/min; Glucose 95 mg/dL (74-106); Potassium 4.1 mmol/L (3.5-5.1); Sodium Level 142 mmol/L (136-145)
[2021-04-13 21:15] LABS: Absolute Lymphocyte Count 0.57 X10^3/uL (0.83-4.51); Absolute Neutrophil Count 7.9 X10^3/uL (2.0-7.7); Basophil# 0.11 X10^3/uL; Basophil% 1.1 % (0-1); Eosinophil# 0.31 X10^3/uL; Hematocrit 44.3 % (40-54); Hemoglobin 14.3 g/dL (13.0-16.5); Lymphocyte # 0.57 X10^3/ul (0.83-4.51); Lymphocyte % 5.6 % (19-41); Mean Corp Hgb Conc 32.3 g/dL (32-36); Mean Corpuscular Hgb 29.6 pg (27.0-32.0); Mean Corpuscular Volume 91.7 fL (80-94); Mean Platelet Vol. 9.4 fl (6.2-12.0); Monocyte# 1.38 X10^3/uL; Monocyte% 13.4 % (0-10); NRBC Flagged by Analyzer 0 % (0-5); Neutrophil # 7.85 X10^3/uL (2.7-7.7); Neutrophil % 76.4 % (47-70); POSITIVE DIFFERENTIAL YES; Platelet Count 255 K/mm3 (150-450); RBC Distribution Width CV 13.3 % (11.6-14.6); RBC Distribution Width SD 45.1 fl (35.1-43.9); Red Blood Count 4.83 M/mm3 (4.6-6.2); White Blood Count 10.3 K/mm3 (4.4-11.0)
[2021-04-13 21:20] LABS: Differential Indicated SCAN CRITERIA MET
[2021-04-13 22:17] LABS: Differential Comment SCANNED
[2021-04-13] MEDS: Ondansetron 4 MG/2 ML Vial IV (22:22)
[2021-04-13] MEDS: morphine 8 MG/ML Syringe 6 MG IV (22:23)
[2021-04-13 22:40] VITALS: BP 132/76; PULSE 79; RESP 18; O2SAT 96
== END 2021-04-13 22:41 | disposition home or self-care (01) ==
PROVIDERS: Emergency Provider Emergency Medicine; PCP Internal Medicine
DX: N13.2 Hydronephrosis with renal and ureteral calculous obstruction (principal); Z87.442 Personal history of urinary calculi
CPT/HCPCS: 74176; 80048; 81001; 85025; 96361; 96374; 96375; 99282; J7030; A4216; J2405

== ENCOUNTER → 2021-06-27 14:41 | Outpatient (CLI) | payer BC, SELFPAY ==
--- NOTE | 2021-06-27 14:50 | RAD_ITS ---
STUDY: X-RAY CHEST REASON FOR EXAM: Male, 70 years old. J84.116 TECHNIQUE: PA and lateral views of the chest. COMPARISON: 09/29/2019 FINDINGS: Poor inspiration with some bibasilar atelectasis per There is no demonstrated pleural abnormality. Normal size heart. Normal mediastinum and tete. Normal visualized pulmonary arteries. Normal visualized aortic arch and descending thoracic aorta. Normal visualized thoracic spine. Normal visualized ribs, clavicles, and shoulders. There is no demonstrated abnormality of the visualized soft tissue structures of the upper abdomen. RAD/Chest PA and Lateral IMPRESSION: Poor inspiration with some bibasilar atelectasis. Electronically Signed: Greg Danielle MD at 12:48 EDT Tel , Service support ,
[2021-06-27 16:42] LABS: Hematocrit 44.1 % (40-54); Hemoglobin 14.2 g/dL (13.0-16.5); Mean Corp Hgb Conc 32.2 g/dL (32-36); Mean Corpuscular Hgb 29.5 pg (27.0-32.0); Mean Corpuscular Volume 91.5 fL (80-94); Mean Platelet Vol. 9.7 fl (6.2-12.0); Platelet Count 297 K/mm3 (150-450); RBC Distribution Width CV 14.1 % (11.6-14.6); RBC Distribution Width SD 47.5 fl (35.1-43.9); Red Blood Count 4.82 M/mm3 (4.6-6.2); White Blood Count 7.8 K/mm3 (4.4-11.0)
[2021-06-27 17:16] LABS: AST(SGOT) 9 U/L (15-37); Alanine Aminotransfer ALT/SGPT 23 U/L (16-61); Albumin, Serum 3.7 g/dL (3.2-5.0); Alkaline Phosphatase 77 U/L (45-117); Bilirubin, Direct 0.16 mg/dL (0.00-0.30); Globulin 3.6 g/dL (2.2-4.2); Protein, Total 7.3 g/dL (6.4-8.2)
[2021-06-27 17:18] LABS: Erythrocyte Sedimentation Rate 15 mm/hr (0-20)
== END ==
PROVIDERS: PCP Internal Medicine; Referring Provider Internal Medicine Pulmonary Disease; Visit Provider Internal Medicine Pulmonary Disease
DX: J84.116 Cryptogenic organizing pneumonia (principal); J47.1 Bronchiectasis with (acute) exacerbation
CPT/HCPCS: 36415; 71046; 80076; 85027; 85652

== ENCOUNTER → 2021-07-14 08:44 | Outpatient (CLI) | payer BC, SELFPAY ==
[2020-04-10 11:37] VITALS: BMI 29.2
[2021-07-14 08:53] VITALS: BP 128/76; PULSE 84; RESP 16; TEMP 36.3; O2SAT 93
[2021-07-14] MEDS: DENOSUMAB 60 MG/ML SC (08:57)
== END ==
PROVIDERS: PCP Internal Medicine; Referring Provider Internal Medicine; Visit Provider Internal Medicine
DX: M81.0 Age-related osteoporosis without current pathological fracture (principal)
CPT/HCPCS: 96372; J0897

== ENCOUNTER 2021-07-16 12:42 | Emergency (ER) | payer BC, SELFPAY ==
[2021-07-16] VITALS (7 sets, daily range): BP systolic 106–124; BP diastolic 57–79; PULSE 80–103; RESP 16–28; TEMP 36.6–36.8; O2SAT 91–96; BMI 27.6
--- NOTE | 2021-07-16 13:29 | RAD_ITS ---
STUDY: X-RAY CHEST REASON FOR EXAM: Male, 70 years old. covid TECHNIQUE: Single AP portable view of the chest. COMPARISON: Comparison is made with prior study dated 06/27/2021. FINDINGS: EKG electrodes are seen. Persistent bibasilar infiltrates worse on the left side. These have improved as compared to prior study. There is no demonstrated pleural abnormality. Normal size heart. Normal mediastinum and tete. Normal visualized pulmonary arteries. Normal visualized aortic arch and descending thoracic aorta. There are diffuse degenerative changes of the visualized thoracic spine. There is degenerative osteoarthritis of the bilateral shoulders. There is no demonstrated abnormality of the visualized soft tissue structures of the upper abdomen. RAD/Chest 1 View (Portable) IMPRESSION: Persistent bibasilar infiltrates worse on the left side although there has been improvement as compared to prior study. Electronically Signed: Harinder Melton MD at 14:00 EDT , Service support ,
--- NOTE | 2021-07-16 13:30 | EDS_ITS ---
HPI History of Present Illness Chief Complaint: Shortness of Breath Detail of Chief Complaint: Covid positive today. Informant: patient Onset/Context/Timing Onset: Days Context: gradual Timing: Continuous Quality: Positive for Dyspnea on exertion Current Severity: Mild Maximum Severity: Mild Worsened by: Exertion Relieved by: Rest Associated Symptoms cough Chest Pain: Positive for None Narrative Narrative: 70-year-old gentleman history of kidney stones and a lung disorder for which he sees pulmonology. He is not on home oxygen. Static 7 a history of a cough was seen today diagnosed with Covid. He said at home today his pulse ox was dropping below 90 to around 86. He denies vomiting or diarrhea. He did get a [employer] Covid vaccine. He is never had a DVT or PE. He has had no recent travel, surgery or immobilization. No recent hospitalization. PE Risk Factors: Negative for Cancer, OCP + Smoking + > 35, Prior DVT or PE, Recent immobilization, Recent surgery and Recent travel Prior similar symptoms: Yes Recent Illness/Hospitalization: No PFSH PFSH Medical History Abnormal cardiac CT angiography Antisynthetase syndrome Asthma Atrial fibrillation BPH (benign prostatic hyperplasia) Essential hypertension Fatty liver GERD (gastroesophageal reflux disease) Interstitial lung disease Lung nodule Mixed hyperlipidemia RBBB (right bundle branch block) Vasovagal syncope Home Medications montelukast 10 mg PO DAILY 10/23/15 [History Last Taken 10/22/15] simvastatin 10 mg PO DAILY 08/07/17 [History Last Taken 08/06/17] mycophenolate mofetil 1,500 mg PO BID 09/16/19 [History Last Taken Unknown] aspirin 81 mg tablet,delayed release 81 mg PO DAILY 07/14/21 [History Last Taken Unknown] cyanocobalamin (vitamin B-12) 500 mcg tablet 500 mcg PO DAILY 07/14/21 [History Last Taken Unknown] denosumab 60 mg/mL subcutaneous syringe 60 mg SUBCUT [id number] 07/14/21 [History Last Taken Unknown] pantoprazole 40 mg tablet,delayed release 40 mg PO DAILY 07/14/21 [History Last Taken Unknown] prednisone 1 mg tablet 2 mg PO BID tab 07/14/21 [History Last Taken Unknown] sildenafil 100 mg tablet 100 mg PO DAILY PRN 07/14/21 [History Last Taken Unknown] tadalafil 5 mg tablet 5 mg PO DAILY 07/14/21 [History Last Taken Unknown] Allergy/AdvReac Type Severity Reaction Status Date / Time Penicillins [PCN] Allergy Rash Verified 07/16/21 12:46 allopurinol AdvReac Unknown cough Verified 07/16/21 12:46 morphine AdvReac Other Verified 07/16/21 12:46 tamsulosin [From Flomax] AdvReac Other Verified 07/16/21 12:46 Family History Grandfather CVA (cerebral vascular accident) Grandmother Congestive heart failure Grandmother Cardiac pacemaker in situ Mother Heart disease Hypertension Surgical History History of inguinal hernia repair History of lithotripsy History of umbilical hernia repair Social History Smoking Status: Never smoker alcohol intake: current details: Rare substance use type: does not use caffeine: Yes ROS ROS ED ROS Narrative Cough and shortness of breath. Review of Systems ROS Unobtainable: Denies due to encephalopathy Constitutional Constitutional ED: Denies fever(s) Eyes Eyes: Denies change in vision ENT ENT ED: Denies ear pain Cardiovascular Cardiovascular: Denies chest pain or palpitations Respiratory/Chest Respiratory/Chest: Reports cough and dyspnea Gastrointestinal Gastrointestinal: Denies abdominal pain, diarrhea, nausea or vomiting Genitourinary Genitourinary ED: Denies dysuria Musculoskeletal Musculoskeletal: Denies myalgias Integumentary Denies rash Neurologic Neurologic: Denies headache(s) Psychiatric Psychiatric: Denies depression Endocrine Endocrinology: Denies polyuria Hematologic/Lymphatic Hematologic/Lymphatic: Denies easy bruising Allergic/Immunologic Allergic/Immunologic ED: Denies urticaria EXAM Physical Exam Narrative Exam Narrative: 70-year-old male no acute distress. Vital signs stable O2 sat on room air sitting in bed at rest 93% no hypoxia. He does not look septic or toxic. H EENT exam unremarkable. Neck nontender no JVD no lymphadenopathy. Lungs clear to auscultation. Heart regular rhythm rate about 100 no murmur. Abdomen soft nontender. Moving all 4 extremities. Calves nontender without edema or cords. Neurologically awake alert with no new motor deficits. Const Vital Signs: 07/16/21 12:43 07/16/21 13:18 07/16/21 15:10 Temperature 98 F 98 F Temperature Source Temporal Temporal Pulse Rate 102 H 103 H 89 Respiratory Rate 20 H 28 H 16 Respiratory Effort Short of Breath Respiratory Pattern Tachypnea Blood Pressure 124/79 H 124/67 H 106/67 Blood Pressure Mean 94 86 80 Pulse Ox 93 96 93 Oxygen Delivery Method Room Air Room Air Room Air 07/16/21 15:11 07/16/21 16:08 Temperature 98.3 F Temperature Source Temporal Pulse Rate 89 87 Respiratory Rate 16 28 H Respiratory Effort Respiratory Pattern Blood Pressure 106/67 108/57 L Blood Pressure Mean 80 74 Pulse Ox 92 94 Oxygen Delivery Method Room Air Room Air Positive well nourished and well developed; Negative for cachectic, contractures or unkempt General Appearance ED: well developed and NAD; Negative for unkempt, cachectic or contractures Nutritional Appearance: Negative for cachectic HEENT Reports moist mucous membranes atraumatic; Negative for trauma or tenderness Eyes PERRL and EOMs intact bilaterally Neck no lymphadenopathy, supple, no meningeal signs and no JVD General: Negative for tenderness Resp normal respiratory effort and clear to auscultation bilaterally Auscultation: Negative for rales, rhonchi or wheezes Cardio regular rate, regular rhythm, S1 normal heart sound, S2 normal heart sound and no murmurs GI non-tender, non-distended and no masses Auscultation: normoactive bowel sounds Palpation: soft; Negative for tender, guarding or rebound tenderness present Back/Spine no CVA tenderness and normal to inspection General Back: Negative for CVA tenderness Extremity normal to inspection General Extremety ED: Negative for edema or tenderness General Extremity: Negative for edema Neuro oriented x3 and CN's II-XII intact bilaterally Sensorium / Orientation: alert, oriented to person, oriented to place and orientation impaired; Negative for oriented to time, confused, lethargic or stuporous Motor Exam: strength 5/5 throughout Psych mental status grossly normal Appearance: Negative for unkempt Skin no wounds Lesions: no lesions Rashes: no rashes MDM MDM MDM Narrative Medical decision making narrative: 70-year-old male with a chronic underlying lung disorder but not on home O2 diagnosed with Covid today having shortness of breath at home with his O2 sats dropping into the mid 80s. Repeat exam at 4:25 PM patient doing well. Oxygenation is 94% on room air with the mask on he is in no distress. He will be discharged home with outpatient follow-up. Lab Data Attestation: I reviewed the patient's lab results. Lab results narrative: CBC shows healthy count 8. Hemoglobin 14. Electrolytes unremarkable gap of 6. Creatinine 1.2. Glucose 109. Labs: Laboratory Results - last 24 hr 07/16/21 07/16/21 13:35 13:35 WBC 8.1 RBC 5.14 Hgb 14.9 Hct 46.7 MCV 90.9 MCH 29.0 MCHC 31.9 L RDW Std Deviation 44.2 H RDW Coeff of Opal 13.3 Plt Count 250 MPV 9.4 Immature Gran % (Auto) 0.700 Neut % (Auto) 87.9 H Lymph % (Auto) 4.6 L [place] % (Auto) 6.7 Eos % (Auto) 0.0 Baso % (Auto) 0.1 Absolute Neuts (auto) 7.1 Absolute Lymphs (auto) 0.37 L Nucleated RBC % 0 Sodium 139 Potassium 4.0 Chloride 107 Carbon Dioxide 26.0 Anion Gap 6 BUN 17 Creatinine 1.22 Estim Creat Clear Calc 59.84 Est GFR (MDRD) Af Amer 76 Est GFR (MDRD) Non-Af 63 BUN/Creatinine Ratio 13.9 Glucose 109 H Calcium 9.0 Radiography Chest X-Ray - ED: 1 View, Read by ED Physician, Mediastinum, Bony Structures and Chronic Changes Diagnostic Testing: Radiology Impression Chest X-Ray 07/16/21 13:29 IMPRESSION: Persistent bibasilar infiltrates worse on the left side although there has been improvement as compared to prior study. Electronically Signed: Harinder Melton MD at 14:00 EDT , Service support , Portable single view chest x-ray interpreted by myself the radiologist shows bilateral infiltrates consistent with Covid. Discharge Plan Triage Chief Complaint: Shortness of Breath ED Provider: Elias Barton Dx/Rx/DC Orders Clinical Impression: COVID-19 Instructions: Human Coronaviruses Prescriptions: No Action pantoprazole 40 mg tablet,delayed release (DR/EC) 40 mg PO DAILY RF: 0 prednisone 1 mg tablet 2 mg PO BID RF: 0 sildenafil [Viagra] 100 mg tablet 100 mg PO DAILY PRNRF: 0 Prolia 60 mg/mL syringe 60 mg subcut [id number] RF: 0 tadalafil [Cialis] 5 mg tablet 5 mg PO DAILY RF: 0 cyanocobalamin (vitamin B-12) 500 mcg tablet 500 mcg PO DAILY RF: 0 aspirin [Adult Low Dose Aspirin] 81 mg tablet,delayed release (DR/EC) 81 mg PO DAILY RF: 0 montelukast 10 MG tablet 10 mg PO DAILY RF: 0 simvastatin 10 MG tablet 10 mg PO DAILY RF: 0 mycophenolate mofetil 500 MG tablet 1,500 mg PO BID RF: 0 Primary Care Provider: Tanya Pettit Referrals: Tanya Pettit DO [Primary Care Provider] - 1 Week if not improving Activity Restrictions/Additional Instructions: Continue taking your prednisone. 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 Return to emergency department if you are feeling worse especially worsening shortness of breath. Your labs and your chest x-ray look good today. I will again refer you to the monoclonal antibody therapy department. Disposition Disposition: Home, Self Care
[2021-07-16 13:55] LABS: Absolute Lymphocyte Count 0.37 X10^3/uL (0.83-4.51); Absolute Neutrophil Count 7.1 X10^3/uL (2.0-7.7); Basophil# 0.01 X10^3/uL; Basophil% 0.1 % (0-1); Hematocrit 46.7 % (40-54); Hemoglobin 14.9 g/dL (13.0-16.5); Lymphocyte # 0.37 X10^3/ul (0.83-4.51); Lymphocyte % 4.6 % (19-41); Mean Corp Hgb Conc 31.9 g/dL (32-36); Mean Corpuscular Volume 90.9 fL (80-94); Mean Platelet Vol. 9.4 fl (6.2-12.0); Monocyte# 0.54 X10^3/uL; Monocyte% 6.7 % (0-10); NRBC Flagged by Analyzer 0 % (0-5); Neutrophil # 7.13 X10^3/uL (2.7-7.7); Neutrophil % 87.9 % (47-70); POSITIVE DIFFERENTIAL YES; Platelet Count 250 K/mm3 (150-450); RBC Distribution Width CV 13.3 % (11.6-14.6); RBC Distribution Width SD 44.2 fl (35.1-43.9); Red Blood Count 5.14 M/mm3 (4.6-6.2); White Blood Count 8.1 K/mm3 (4.4-11.0)
[2021-07-16 13:57] LABS: Differential Indicated SCAN CRITERIA MET
[2021-07-16 14:07] LABS: Anion Gap 6 (5-15); BUN 17 mg/dL (7-18); BUN/Creat Ratio 13.9 RATIO (10-20); Chloride 107 mmol/L (98-107); Creatinine, Serum 1.22 mg/dL (0.70-1.30); EST Glomerular Filtration Rate 63 mL/min (>60); Est Glom Filt Rate - Afr Amer 76 mL/min (>60); Estimated Creatinine Clearance 59.84 ml/min; Glucose 109 mg/dL (74-106); Sodium Level 139 mmol/L (136-145)
== END 2021-07-16 16:41 | disposition home or self-care (01) ==
PROVIDERS: Emergency Provider Emergency Medicine; PCP Internal Medicine
DX: U07.1 COVID-19 (principal); J98.4 Other disorders of lung; I10 Essential (primary) hypertension; E78.2 Mixed hyperlipidemia; K76.0 Fatty (change of) liver, not elsewhere classified; I48.91 Unspecified atrial fibrillation; K21.9 Gastro-esophageal reflux disease without esophagitis; N40.0 Benign prostatic hyperplasia without lower urinary tract symptoms; J45.909 Unspecified asthma, uncomplicated; Z87.442 Personal history of urinary calculi; Z79.82 Long term (current) use of aspirin; Z79.899 Other long term (current) drug therapy
CPT/HCPCS: 71045; 80048; 85025; 99283; A4216

== ENCOUNTER 2021-07-18 18:48 | Inpatient (IN) | payer BC, SELFPAY ==
[2021-07-18] VITALS (8 sets, daily range): BP systolic 100–112; BP diastolic 62–71; PULSE 48–102; RESP 18–28; TEMP 36.9–37.8; O2SAT 87–98; BMI 27.8; BMI 26.4
--- NOTE | 2021-07-18 19:21 | EKG12_ITS ---
Test Reason : AFIB Blood Pressure : / mmHG Vent. Rate : 089 BPM Atrial Rate : 089 BPM P-R Int : 118 ms QRS Dur : 126 ms QT Int : 376 ms P-R-T Axes : -25 -37 -03 degrees QTc Int : 457 ms Sinus rhythm with Premature supraventricular complexes and with occasional Premature ventricular comp lexes Left axis deviation Right bundle branch block Abnormal ECG Confirmed by JOSE ESCALERA, LINSEY ([id number]), metropolitan editor SEA FIGUEROA ([id number]) on 07/21/2021 12:49:22 PM Referred By: DR JI Confirmed By:LINSEY GARCIA MD
[2021-07-18 19:32] LABS: Absolute Lymphocyte Count 0.31 X10^3/uL (0.83-4.51); Absolute Neutrophil Count 7.8 X10^3/uL (2.0-7.7); Basophil# 0.01 X10^3/uL; Basophil% 0.1 % (0-1); Hematocrit 51.2 % (40-54); Hemoglobin 16.2 g/dL (13.0-16.5); Lymphocyte # 0.31 X10^3/ul (0.83-4.51); Lymphocyte % 3.5 % (19-41); Mean Corp Hgb Conc 31.6 g/dL (32-36); Mean Corpuscular Hgb 28.7 pg (27.0-32.0); Mean Corpuscular Volume 90.6 fL (80-94); Mean Platelet Vol. 9.6 fl (6.2-12.0); Monocyte% 8.9 % (0-10); NRBC Flagged by Analyzer 0 % (0-5); Neutrophil # 7.77 X10^3/uL (2.7-7.7); Neutrophil % 86.8 % (47-70); POSITIVE DIFFERENTIAL YES; Platelet Count 322 K/mm3 (150-450); RBC Distribution Width CV 13.3 % (11.6-14.6); RBC Distribution Width SD 44.6 fl (35.1-43.9); Red Blood Count 5.65 M/mm3 (4.6-6.2)
[2021-07-18 19:38] LABS: Differential Indicated SCAN CRITERIA MET
[2021-07-18 19:50] LABS: ALB/GLOB Ratio 0.7 RATIO (0.9-2.4); AST(SGOT) 33 U/L (15-37); Alanine Aminotransfer ALT/SGPT 33 U/L (16-61); Albumin, Serum 3.6 g/dL (3.2-5.0); Alkaline Phosphatase 81 U/L (45-117); Anion Gap 3 (5-15); BUN 18 mg/dL (7-18); BUN/Creat Ratio 15.5 RATIO (10-20); Calcium,Total 9.2 mg/dL (8.5-10.1); Chloride 107 mmol/L (98-107); Creatinine, Serum 1.16 mg/dL (0.70-1.30); EST Glomerular Filtration Rate 66 mL/min (>60); Est Glom Filt Rate - Afr Amer 80 mL/min (>60); Estimated Creatinine Clearance 62.93 ml/min; Globulin 4.9 g/dL (2.2-4.2); Glucose 111 mg/dL (74-106); LDH 455 U/L (87-241); Potassium 3.7 mmol/L (3.5-5.1); Protein, Total 8.5 g/dL (6.4-8.2); Sodium Level 138 mmol/L (136-145)
--- NOTE | 2021-07-18 19:50 | RAD_ITS ---
INDICATION: cough EXAMINATION/TECHNIQUE: X-RAY - XR Chest 1 View COMPARISON: 07/16/2021. FINDINGS: Interval worsening of bilateral interstitial and airspace opacities. The cardiomediastinal silhouette is unremarkable. No pleural effusion or pneumothorax. No acute osseous abnormalities. RAD/Chest 1 View (Portable) IMPRESSION: Interval worsening of bilateral interstitial and airspace opacities. Electronically Signed: Mark Valentine MD at 20:31 EDT Tel , Service support ,
[2021-07-18 19:52] LABS: Procalcitonin 0.09 ng/mL (0.00-0.09)
[2021-07-18] MEDS: dexAMETHasone 10 MG/ML Vial 6 MG IV (20:19)
[2021-07-18 20:33] LABS: Differential Comment SCANNED
--- NOTE | 2021-07-18 20:34 | PCM.HP.STD ---
HPI - General General Date of Admission: 07/18/21 Date of Service: 07/18/21 Chief Complaint: Dyspnea, cough, worsening w/ COVID HPI Narrative The patient is a 70 y/o M w/ PMHx: PAF, HTN, HLD, GERD, Autoimmune Lung Disease/Antisynthetase syndrome/Interstitial Lung Disease/Asthma, BPH who presents to the [facility] ED on 07/18/21 with history of initial evaluation 07/16/2021 with positive Covid testing on that date with symptoms starting Wednesday upon his return from [place] where he and his had been x 1 week with onset fever, chills, nausea, emesis, loose stools, decreased sense of smell, cough and dyspnea. 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 Patient's also contracted Covid and remains currently in [place] secondary to quarantine status. Patient secondary to his significant dyspnea did obtain oxygen on day of ED presentation from his work. Despite usage of oxygen he still felt significantly short of breath with exertion prompting eventual evaluation. Work-up in the ED included T 100, heart rate 102, respiratory rate 24, initially 87% on room air with improvement to 96 on 2 L nasal cannula, CBC with WC 9, hemoglobin 16.2, platelet 322 with lymphopenia and left shift concurrently, CMP with glucose 111, lactic acid 1.9, LDH 455, CRP 52.80, procalcitonin 0.09, chest x-ray with interval worsening of bilateral interstitial and airspace opacities, rapid SARS Covid antigen pending, blood culture x2 pending per ED. [facility] Medical History (Updated 07/19/21 @ 04:[address] Katheryn Beasley MD) Abnormal cardiac CT angiography Antisynthetase syndrome Asthma Atrial fibrillation BPH (benign prostatic hyperplasia) Essential hypertension Fatty liver GERD (gastroesophageal reflux disease) Interstitial lung disease Kidney stones Lung nodule Mixed hyperlipidemia Osteoporosis RBBB (right bundle branch block) Vasovagal syncope Home Medications simvastatin 10 mg PO DAILY 08/07/17 [History Last Taken 08/06/17] mycophenolate mofetil 1,500 mg PO BID 09/16/19 [History Last Taken Unknown] aspirin 81 mg tablet,delayed release 81 mg PO DAILY 07/14/21 [History Last Taken Unknown] cyanocobalamin (vitamin B-12) 500 mcg tablet 500 mcg PO DAILY 07/14/21 [History Last Taken Unknown] denosumab 60 mg/mL subcutaneous syringe 60 mg SUBCUT [id number] 07/14/21 [History Last Taken Unknown] pantoprazole 40 mg tablet,delayed release 40 mg PO DAILY 07/14/21 [History Last Taken Unknown] prednisone 1 mg tablet 5 mg PO BID tab 07/14/21 [History Last Taken Unknown] Vitamin D3 6,000 mcg PO/SL DAILY 07/18/21 [History Last Taken Unknown] prednisone 40 mg PO DAILY 07/18/21 [History Last Taken Unknown] zinc 100 mg PO DAILY 07/18/21 [History Last Taken Unknown] Allergy/AdvReac Type Severity Reaction Status Date / Time Penicillins [PCN] Allergy Rash Verified 07/18/21 18:58 allopurinol AdvReac Unknown cough Verified 07/18/21 18:58 morphine AdvReac Other Verified 07/18/21 18:58 tamsulosin [From Flomax] AdvReac Other Verified 07/18/21 18:58 Family History (Updated 07/19/21 @ 04:[address] Katheryn Beasley MD) Grandfather CVA (cerebral vascular accident) Grandmother Congestive heart failure Grandmother Cardiac pacemaker in situ Mother Heart disease Hypertension Father Heart disease Surgical History History of inguinal hernia repair History of lithotripsy History of umbilical hernia repair Social History (Updated 07/19/21 @ 04:[address] Katheryn Beasley MD) household members: spouse Smoking Status: Never smoker alcohol intake: current details: Rare substance use type: does not use caffeine: Yes ROS ROS Narrative Admission Review of Systems: CONSTITUTIONAL: No weight loss, + fever, chills, weakness or fatigue. HEENT: Eyes: No visual loss, blurred vision, double vision or yellow sclerae. Ears, Nose, Throat: No hearing loss, sneezing, congestion, runny nose or sore throat. SKIN: No rash or itching, lesions, wounds. CARDIOVASCULAR: No chest pain, chest pressure or chest discomfort, palpitations, edema, orthopnea, syncopal events. RESPIRATORY: + shortness of breath, cough without marked sputum, No wheezing, hemoptysis. GASTROINTESTINAL: + anorexia, nausea, vomiting, diarrhea, No marked abdominal pain, melena, BRBPR. GENITOURINARY: No dysuria, frequency, urgency or retention. NEUROLOGICAL: No headache, dizziness, syncope, paralysis, ataxia, numbness or tingling in the extremities, focal weakness, change in bowel or bladder control, seizure. MUSCULOSKELETAL: + muscle, back pain, joint pain or stiffness. HEMATOLOGIC: No anemia, bleeding or bruising. LYMPHATICS: No enlarged nodes. No history of splenectomy. PSYCHIATRIC: No history of depression or anxiety. ENDOCRINOLOGIC: No reports of sweating, cold or heat intolerance. No polyuria or polydipsia. ALLERGIES: + history of asthma, hives, eczema or rhinitis. Vital Signs Vital Signs Vital Signs: 07/18/21 18:50 07/18/21 19:33 07/18/21 19:54 Temperature 100.0 F H Temperature Source Temporal Pulse Rate 102 H 48 L Respiratory Rate 24 H 19 H Respiratory Effort Non-Labored Short of Breath Blood Pressure 104/68 Blood Pressure Mean 80 Pulse Ox 87 98 Oxygen Delivery Method Room Air Nasal Cannula Nasal Cannula Oxygen Flow Rate (L/min) 5 2 07/18/21 20:20 Temperature 99.9 F H Temperature Source Temporal Pulse Rate 86 Respiratory Rate 22 H Respiratory Effort Blood Pressure 102/71 Blood Pressure Mean 81 Pulse Ox 96 Oxygen Delivery Method Nasal Cannula Oxygen Flow Rate (L/min) 2 Weight Weight: 193 lb 12.581 oz Body Mass Index (BMI) 27.8 Physical Exam Narrative Physical Examination: General: Awake, alert, oriented x 3 and cooperative, seated upright in the ED bed, fatigued and ill-appearing, nasal cannula in place. Skin: Normal color, normal turgor, no icterus, no cyanosis. HEENT: AT/NC, EOMI, PERRLA, moderately dry MM, no carotid bruits or JVD noted. Lungs: Diminished, mild crackles bases likely secondary to underlying pulmonary fibrotic disease, currently on nasal cannula with no accessory muscle usage or any evidence of distress,, no rales, ronchi or wheezing. Heart: Mildly tachycardic with regular rhythm; no gallop, rub audible. Abdomen: Soft, NTTP, ND, normal BS, no HSM. Extremities: No cyanosis, clubbing, or edema. Neurological: Patient awake, alert, oriented as noted, cognitive function intact; pupils equally reactive to light and accommodation, cranial nerves II-XII grossly normal, moving all 4 extremities, no focal deficits, strength severely global decrease secondary to acute presentation. Psychiatric: Affect appears fatigued, ill-appearing, no acute evidence of depressive or anxiety feelings. Results Lab / Micro Data Result Diagrams: 07/18/21 18:55 07/18/21 18:55 Labs: Laboratory Results - last 24 hr 07/18/21 18:55: WBC 9.0, RBC 5.65, Hgb 16.2, Hct 51.2, MCV 90.6, MCH 28.7, MCHC 31.6 L, RDW Std Deviation 44.6 H, RDW Coeff of Opal 13.3, Plt Count 322, MPV 9.6, Immature Gran % (Auto) 0.700, Neut % (Auto) 86.8 H, Lymph % (Auto) 3.5 L, [place] % (Auto) 8.9, Eos % (Auto) 0.0, Baso % (Auto) 0.1, Absolute Neuts (auto) 7.8 H, Absolute Lymphs (auto) 0.31 L, Nucleated RBC % 0, Differential Comment SCANNED 07/18/21 18:55: Sodium 138, Potassium 3.7, Chloride 107, Carbon Dioxide 28.0, Anion Gap 3 L, BUN 18, Creatinine 1.16, Estim Creat Clear Calc 62.93, Est GFR (MDRD) Af Amer 80, Est GFR (MDRD) Non-Af 66, BUN/Creatinine Ratio 15.5, Glucose 111 H, Calcium 9.2, Total Bilirubin 0.60, AST 33, ALT 33, Alkaline Phosphatase 81, Lactate Dehydrogenase 455 H, C-React Prot Ext Range 52.80 H, Total Protein 8.5 H, Albumin 3.6, Globulin 4.9 H, Albumin/Globulin Ratio 0.7 L 07/18/21 18:55: Procalcitonin 0.09 Radiology Impression Chest X-Ray 07/18/21 19:50 IMPRESSION: Interval worsening of bilateral interstitial and airspace opacities. Electronically Signed: Mark Valentine MD at 20:31 EDT Tel , Service support , Assessment & Plan Assessment/Plan (1) Pneumonia due to COVID-19 virus: (2) Hypoxia: PLAN: The patient is a 70 y/o M w/ PMHx: PAF, HTN, HLD, GERD, Autoimmune Lung Disease/Antisynthetase syndrome/Interstitial Lung Disease/Asthma, BPH who presents to the [facility] ED on 07/18/21 with history of initial evaluation 07/16/2021 with positive Covid testing on that date with symptoms starting Wednesday upon his return from [place] where he and his had been x 1 week with onset fever, chills, nausea, emesis, loose stools, decreased sense of smell, cough and dyspnea. 1. Acute Worsening Hypoxia secondary to Bilateral Pneumonia secondary to Acute Viral Syndrome, COVID-19: Given significant underlying autoimmune lung disease, will admit to PCU, maintain on telemetry monitoring, will request pulmonary consultation, will maintain on oxygen with wean as tolerated to room air, PRN albuterol, HOB, IS parameters w/ pending sputum cultures, respiratory viral panel and urine antigens, will obtain D-dimer, Ferritin, trop and BNP given other lab markers already obtained upon ED evaluation, continue supportive care including q 2 hour turning including prone given no prone bed availability and judicious hydration, closely monitor for worsening status for ARDS and multiorgan failure, will consult Infectious disease, will initiate and continue IV decadron x 10 doses, given presentation will also initiate IV remdesivir but defer to discretion of Infectious disease. 2. Autoimmune Lung Disease/Antisynthetase syndrome/Interstitial Lung Disease: Complicates presentation, normally on denosumab injections outpatient and BID cellcept. Will hold cellcept given acute infectious COVID presentation as noted above. 3. PAF: Not on rate or rhythm agent, continue asa therapy. 4. Hyperlipidemia: Continue home statin regimen. 5. Hypertension: Reported history however currently review of blood pressures low normal, continue to monitor, add agents if appropriate. 6. GERD: Continue home PPI. 7. DVT prophylaxis: SCDs, Lovenox. 8. CODE status: Patient does not have healthcare power of trust and estates attorney nor living will set up. Given underlying significant lung disease and acute presentation as noted, discussed CODE status at length including difference between FULL code, DNR-CCA and DNR-CC status. Following discussions about the differences in these status, requested Full Code status. Patient is amenable to usage of both airvo and BIPAP if necessary. Advanced Care Planning Face to Face Time: 16 minutes. Charges/Coding Visit Charges Inpatient E&M: 23417 Init Hosp L3 Procedures Hospitalists Procedures: 20462 Advncd Care Plan 30 Min
[2021-07-18 20:39] LABS: Lactic Acid 1.9 mmol/L (0.4-1.9)
--- NOTE | 2021-07-18 20:58 | ED.VIS.DYS ---
HPI History of Present Illness Chief Complaint: Shortness of Breath Narrative Narrative: Patient with an underlying history of lung disease presenting with shortness of breath and complications of coronavirus. Patient states that on Wednesday he developed symptoms, and he did test positive for coronavirus. He states that since then he has been having worsening shortness of breath. Its been associated with a vigorous cough. He does endorse some nausea no significant vomiting. He does report that he has been having some diarrhea associated with this. Positive body aches, positive myalgias. Patient is not typically on supplemental oxygen but is requiring it. Patient is chronically on immunosuppressants secondary to his underlying history of complicated lung disease. [facility] Medical History Abnormal cardiac CT angiography Antisynthetase syndrome Asthma Atrial fibrillation BPH (benign prostatic hyperplasia) Essential hypertension Fatty liver GERD (gastroesophageal reflux disease) Interstitial lung disease Lung nodule Mixed hyperlipidemia RBBB (right bundle branch block) Vasovagal syncope Home Medications simvastatin 10 mg PO DAILY 08/07/17 [History Last Taken 08/06/17] mycophenolate mofetil 1,500 mg PO BID 09/16/19 [History Last Taken Unknown] aspirin 81 mg tablet,delayed release 81 mg PO DAILY 07/14/21 [History Last Taken Unknown] cyanocobalamin (vitamin B-12) 500 mcg tablet 500 mcg PO DAILY 07/14/21 [History Last Taken Unknown] denosumab 60 mg/mL subcutaneous syringe 60 mg SUBCUT [id number] 07/14/21 [History Last Taken Unknown] pantoprazole 40 mg tablet,delayed release 40 mg PO DAILY 07/14/21 [History Last Taken Unknown] prednisone 1 mg tablet 5 mg PO BID tab 07/14/21 [History Last Taken Unknown] Vitamin D3 6,000 mcg PO/SL DAILY 07/18/21 [History Last Taken Unknown] prednisone 40 mg PO DAILY 07/18/21 [History Last Taken Unknown] zinc 100 mg PO DAILY 07/18/21 [History Last Taken Unknown] Allergy/AdvReac Type Severity Reaction Status Date / Time Penicillins [PCN] Allergy Rash Verified 07/18/21 18:58 allopurinol AdvReac Unknown cough Verified 07/18/21 18:58 morphine AdvReac Other Verified 07/18/21 18:58 tamsulosin [From Flomax] AdvReac Other Verified 07/18/21 18:58 Family History Grandfather CVA (cerebral vascular accident) Grandmother Congestive heart failure Grandmother Cardiac pacemaker in situ Mother Heart disease Hypertension Surgical History History of inguinal hernia repair History of lithotripsy History of umbilical hernia repair Social History Smoking Status: Never smoker alcohol intake: current details: Rare substance use type: does not use caffeine: Yes ROS ROS ED Constitutional Constitutional ED: Reports chills and fever(s) ENT ENT ED: Denies rhinorrhea Cardiovascular Cardiovascular: Denies chest pain Respiratory/Chest Respiratory/Chest: Reports cough and dyspnea Gastrointestinal Gastrointestinal: Reports diarrhea and nausea Genitourinary Genitourinary ED: Denies dysuria or hematuria Musculoskeletal Musculoskeletal: Reports myalgias Integumentary Denies rash Neurologic Neurologic: Denies paresthesias or weakness Psychiatric Psychiatric: Denies depression Endocrine Endocrinology: Denies fatigue Allergic/Immunologic Allergic/Immunologic ED: Denies urticaria EXAM Physical Exam Const Vital Signs: 07/18/21 18:50 07/18/21 19:33 07/18/21 19:54 Temperature 100.0 F H Temperature Source Temporal Pulse Rate 102 H 48 L Respiratory Rate 24 H 19 H Respiratory Effort Non-Labored Short of Breath Blood Pressure 104/68 Blood Pressure Mean 80 Pulse Ox 87 98 Oxygen Delivery Method Room Air Nasal Cannula Nasal Cannula Oxygen Flow Rate (L/min) 5 2 07/18/21 20:20 Temperature 99.9 F H Temperature Source Temporal Pulse Rate 86 Respiratory Rate 22 H Respiratory Effort Blood Pressure 102/71 Blood Pressure Mean 81 Pulse Ox 96 Oxygen Delivery Method Nasal Cannula Oxygen Flow Rate (L/min) 2 Positive well nourished and well developed Constitutional Narrative: Age-appropriate male modestly dyspneic otherwise not in physiologic distress General Appearance ED: well developed and NAD HEENT Reports moist mucous membranes Negative for trauma or tenderness Eyes EOMs intact bilaterally Neck no lymphadenopathy, supple and no JVD Chest Wall inspection of chest normal Resp Resp Narrative: Minimal tachypnea with coarse sounding breath sounds at the bases bilaterally Cardio regular rate, regular rhythm, no murmurs and peripheral pulses 2+ throughout GI normal to inspection, nondistended, normoactive bowel sounds, non-tender and no masses Palpation: soft Back/Spine normal to inspection Extremity normal to inspection General Extremety ED: Negative for tenderness Neuro oriented x3 and no sensory deficits noted Sensorium / Orientation: alert Motor Exam: strength 5/5 throughout Psych mental status grossly normal Skin no rashes or lesions noted MDM MDM MDM Narrative Medical decision making narrative: Patient presented with complications of coronavirus. Patient was placed on supplemental oxygen did have improvement of his oxygenation status. Laboratory work-up shows a CBC with lymphocyte suppression consistent with coronavirus, chemistry shows creatinine of 1.1, no significant electrolyte derangements. Patient does have some elevation of his LDH, and CRP lactic acid was found to be normal. Chest x-ray by my personal review as well as radiology demonstrates bilateral infiltrates. Patient does have an underlying history of A. fib, his EKG continues to demonstrate this. Due to the patient's supplemental oxygen need he was given Decadron and will be arranged for admission. He was admitted in stable condition. Lab Data Labs: Laboratory Results - last 24 hr 07/18/21 07/18/21 07/18/21 18:55 18:55 18:55 WBC 9.0 RBC 5.65 Hgb 16.2 Hct 51.2 MCV 90.6 MCH 28.7 MCHC 31.6 L RDW Std Deviation 44.6 H RDW Coeff of Opal 13.3 Plt Count 322 MPV 9.6 Immature Gran % (Auto) 0.700 Neut % (Auto) 86.8 H Lymph % (Auto) 3.5 L Amelia % (Auto) 8.9 Eos % (Auto) 0.0 Baso % (Auto) 0.1 Absolute Neuts (auto) 7.8 H Absolute Lymphs (auto) 0.31 L Nucleated RBC % 0 Differential Comment SCANNED Sodium 138 Potassium 3.7 Chloride 107 Carbon Dioxide 28.0 Anion Gap 3 L BUN 18 Creatinine 1.16 Estim Creat Clear Calc 62.93 Est GFR (MDRD) Af Amer 80 Est GFR (MDRD) Non-Af 66 BUN/Creatinine Ratio 15.5 Glucose 111 H Lactic Acid 1.9 Calcium 9.2 Total Bilirubin 0.60 AST 33 ALT 33 Alkaline Phosphatase 81 Lactate Dehydrogenase 455 H C-React Prot Ext Range 52.80 H Total Protein 8.5 H Albumin 3.6 Globulin 4.9 H Albumin/Globulin Ratio 0.7 L Procalcitonin 07/18/21 18:55 WBC RBC Hgb Hct MCV MCH MCHC RDW Std Deviation RDW Coeff of Opal Plt Count MPV Immature Gran % (Auto) Neut % (Auto) Lymph % (Auto) Amelia % (Auto) Eos % (Auto) Baso % (Auto) Absolute Neuts (auto) Absolute Lymphs (auto) Nucleated RBC % Differential Comment Sodium Potassium Chloride Carbon Dioxide Anion Gap BUN Creatinine Estim Creat Clear Calc Est GFR (MDRD) Af Amer Est GFR (MDRD) Non-Af BUN/Creatinine Ratio Glucose Lactic Acid Calcium Total Bilirubin AST ALT Alkaline Phosphatase Lactate Dehydrogenase C-React Prot Ext Range Total Protein Albumin Globulin Albumin/Globulin Ratio Procalcitonin 0.09 Radiography Chest X-Ray - ED: 1 View, Read by ED Physician, Right Infiltrate and Left Infiltrate Diagnostic Testing: Radiology Impression Chest X-Ray 07/18/21 19:50 IMPRESSION: Interval worsening of bilateral interstitial and airspace opacities. Electronically Signed: Mark Valentine MD at 20:31 EDT Tel , Service support , EKG Initial EKG: Attestation: I personally reviewed and interpreted this EKG as follows: (Atrial fibrillation with a controlled ventricular rate at 89, right bundle branch block morphology is noted no evidence of pathologic deviation of the ST segments or T waves.) Discharge Plan Triage Chief Complaint: Shortness of Breath ED Provider: Shiva Collins Dx/Rx/DC Orders Clinical Impression: COVID-19, Atrial fibrillation, Hypoxia Prescriptions: No Action pantoprazole 40 mg tablet,delayed release (DR/EC) 40 mg PO DAILY RF: 0 prednisone 1 mg tablet 5 mg PO BID RF: 0 Prolia 60 mg/mL syringe 60 mg subcut [id number] RF: 0 cyanocobalamin (vitamin B-12) 500 mcg tablet 500 mcg PO DAILY RF: 0 aspirin [Adult Low Dose Aspirin] 81 mg tablet,delayed release (DR/EC) 81 mg PO DAILY RF: 0 simvastatin 10 MG tablet 10 mg PO DAILY RF: 0 mycophenolate mofetil 500 MG tablet 1,500 mg PO BID RF: 0 prednisone 10 mg tablet 40 mg PO DAILY RF: 0 zinc 100 mg Tablet 100 mg PO DAILY RF: 0 Vitamin D3 6,000 mcg PO/SL DAILY RF: 0 Primary Care Provider: Tanya Pettit Referrals: Tanya Pettit DO [Primary Care Provider] - Disposition Disposition: Acute Care Hospital [facility] Discharge Date/Time: 07/18/21 21:13
[2021-07-18 21:46] LABS: BNP,B-Type NATRIURETIC PEPTIDE 15.1 pg/mL (0-100); Ferritin 302 ng/mL (26-388); Magnesium 2.2 mg/dL (1.6-2.6); Troponin-I HS 12 pg/mL (3.0-78.0)
[2021-07-18] MEDS: 0.9% Normal Saline 1,000 ML 100 ML IV (22:45)
[2021-07-18] MEDS: Enoxaparin 30 MG/0.3 ML Syringe SC (22:46)
[2021-07-18 23:18] LABS: D-Dimer Quantitative (DVT/PE) 0.76 FEU/ug/m (0.27-0.49)
[2021-07-19] VITALS (10 sets, daily range): BP systolic 119–127; BP diastolic 72–77; PULSE 72–89; RESP 18; TEMP 36–36.6; O2SAT 92–97
[2021-07-19] MEDS: guaiFENesin 10 ML UDC (200MG/10ML) 20 ML PO ×3 (01:19→16:00)
[2021-07-19] MEDS: Loperamide 2 MG Capsule PO ×3 (01:19→16:00)
[2021-07-19 07:30] LABS: Absolute Lymphocyte Count 0.31 X10^3/uL (0.83-4.51); Absolute Neutrophil Count 5.2 X10^3/uL (2.0-7.7); Basophil# 0.01 X10^3/uL; Basophil% 0.2 % (0-1); Hemoglobin 14.5 g/dL (13.0-16.5); Lymphocyte # 0.31 X10^3/ul (0.83-4.51); Mean Corp Hgb Conc 31.5 g/dL (32-36); Mean Corpuscular Hgb 28.5 pg (27.0-32.0); Mean Corpuscular Volume 90.6 fL (80-94); Mean Platelet Vol. 9.3 fl (6.2-12.0); Monocyte# 0.63 X10^3/uL; Monocyte% 10.1 % (0-10); NRBC Flagged by Analyzer 0 % (0-5); Neutrophil # 5.22 X10^3/uL (2.7-7.7); Neutrophil % 83.9 % (47-70); POSITIVE DIFFERENTIAL YES; Platelet Count 280 K/mm3 (150-450); RBC Distribution Width CV 13.2 % (11.6-14.6); RBC Distribution Width SD 44.6 fl (35.1-43.9); Red Blood Count 5.08 M/mm3 (4.6-6.2); White Blood Count 6.2 K/mm3 (4.4-11.0)
[2021-07-19 07:50] LABS: Differential Indicated SCAN CRITERIA MET
[2021-07-19 07:58] LABS: ALB/GLOB Ratio 0.7 RATIO (0.9-2.4); AST(SGOT) 29 U/L (15-37); Alanine Aminotransfer ALT/SGPT 31 U/L (16-61); Albumin, Serum 2.9 g/dL (3.2-5.0); Alkaline Phosphatase 66 U/L (45-117); Anion Gap 8 (5-15); BUN 15 mg/dL (7-18); BUN/Creat Ratio 16.8 RATIO (10-20); Chloride 106 mmol/L (98-107); Creatinine, Serum 0.89 mg/dL (0.70-1.30); EST Glomerular Filtration Rate 90 mL/min (>60); Est Glom Filt Rate - Afr Amer 109 mL/min (>60); Estimated Creatinine Clearance 82.02 ml/min; Globulin 3.9 g/dL (2.2-4.2); Glucose 123 mg/dL (74-106); Potassium 4.2 mmol/L (3.5-5.1); Protein, Total 6.8 g/dL (6.4-8.2); Sodium Level 138 mmol/L (136-145)
[2021-07-19] MEDS: Cholecalciferol (VIT D3) 25 MCG TABLET (1,000 UNITS) 150 MCG PO (09:52)
[2021-07-19] MEDS: 0.9% Saline Lock 10 ML Syringe IV (09:52)
[2021-07-19] MEDS: dexAMETHasone 10 MG/ML Vial 6 MG IV (09:53)
[2021-07-19] MEDS: Aspirin E.C. 81 MG Tablet PO (09:54)
[2021-07-19] MEDS: Enoxaparin 30 MG/0.3 ML Syringe SC ×2 (09:54→22:47)
[2021-07-19] MEDS: Cyanocobalamin 500 MCG Tablet PO (09:54)
[2021-07-19] MEDS: Pantoprazole Sodium 40 MG Tablet PO (09:54)
--- NOTE | 2021-07-19 14:47 | CASEMGMT ---
Addendum entered by Siobhan Corrales 07/19/21 15:11: Green sheet on chart for home oxygen. Anastacio BUSH CM Original Note: RACHELLE MÁRQUEZ assessment: Face to Face with patient for initial transition planning/care coordination assessment. RACHELLE MÁRQUEZ introduced self and role at [facility], pt voices understanding and consents to assessment. Pt is on 2-3L nc and has some conversational dyspnea. Pt is A/Ox4 and answers all questions appropriately. Care providers, pharmacy, and demographics verified. Presentation: Pt COVID + with SOB and placed self on O2 tank from work at 8L-Pt states Dr. Pettit did COVID testing Admitting dx: Hypoxia, COVID pna PCP: Wilver Specialists: luis antonio Landon Preferred Pharmacy: [facility]eb[facility] Insurance: [employer] Prescription Benefit: [employer] Living Will/HPOA: Pt does not have LW/HPOA and declines AD info. LNOK: Ashley Verdugo, -also tested COVID + but is in [place] at this time-pt states no concerns getting groceries, resources. Living Arrangements: Pt lives with in home and states no concerns at home. Pt is independent with ADL's. Transportation: Pt states drives self and states no transportation concerns. DME/HHC: Pt states no current DME or need for any further DME. Pt states no preference for DME company, if qualifies for home oxygen. Pt states no hx of HHC or SNF. Pt states no concerns with going home at time of discharge. 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 Pt states does not smoke cigarettes or drink ETOH. Pt states no further concerns/needs. CM to follow for home oxygen and any further discharge planning/needs. Advised pt to ask for CM if any further questions/concerns/needs arise, voices understanding. Pt Goal: Home Plan: Home, pending home oxygen testing. Anastacio BUSH CM
--- NOTE | 2021-07-19 16:36 | PCM.PN.HOSP ---
Subjective Subjective Patient is maintaining his oxygen saturations well with an SPO2 of 92 to 95% on 3 L nasal cannula. He denies any significant shortness of breath but he states he feels pretty fatigued and that he is in no hurry to get out of the hospital. I asked the patient if he has a history of atrial fibrillation and he denied any history of this. Objective Data Objective Data Vital Signs: Vital Signs Temp Pulse Resp BP Pulse Ox 96.8 F L 77 18 120/73 95 07/19/21 10:00 07/19/21 15:29 07/19/21 10:00 07/19/21 10:00 07/19/21 10:00 Oxygen Flow Rate (L/min) 3 Oxygen Delivery Method Nasal Cannula Weight: 86.7 kg Body Mass Index (BMI) 26.4 Intake & Output: Intake and Output for Last 24 Hours 07/17/21 07/18/21 07/19/21 23:59 23:59 23:59 Intake Total 1490 / 1490 Balance 1490 / 1490 Medical Nutrition Assessment Dietitian: Malnutrition Criteria Met Start: 07/19/21 15:14 Freq: Status: Active Protocol: Document 07/19/21 15:14 RMA (Rec: 07/19/21 15:15 RMA [id number]) Nutrition Malnutrition Evidence of Malnutrition Exists Yes Malnutrition (severe): Acute Illness/Injury Evidenced By Suboptimal Energy Intake ( Severe),Weight Loss (Severe) Clinical Problem Acute Disease or Injury Related Malnutrition Etiology Severe protein-calorie malnutrition in the context of acute illness related to ongoing poor appetite due to infection Signs/Symptoms as evidenced by 4-5% wt loss x past 1-2 weeks and oral intake meeting less than 50% estimated nutrition needs x past 1-2 weeks. Status Active Problem Recommendation Dietitian Recommendations/Changes Continue Cardiac diet as ordered. Will add 240ml Ensure Enlive BID w/ meals for additional 700 calorie and 40gm protein if consumed. Adjust ONS and diet as needed to optimize intake at meals. Lab / Micro Data Result Diagrams: 07/19/21 07:14 07/19/21 07:14 Labs: Laboratory Results - last 24 hr 07/18/21 18:55: WBC 9.0, RBC 5.65, Hgb 16.2, Hct 51.2, MCV 90.6, MCH 28.7, MCHC 31.6 L, RDW Std Deviation 44.6 H, RDW Coeff of Opal 13.3, Plt Count 322, MPV 9.6, Immature Gran % (Auto) 0.700, Neut % (Auto) 86.8 H, Lymph % (Auto) 3.5 L, Jasper % (Auto) 8.9, Eos % (Auto) 0.0, Baso % (Auto) 0.1, Absolute Neuts (auto) 7.8 H, Absolute Lymphs (auto) 0.31 L, Nucleated RBC % 0, Differential Comment SCANNED 07/18/21 18:55: Sodium 138, Potassium 3.7, Chloride 107, Carbon Dioxide 28.0, Anion Gap 3 L, BUN 18, Creatinine 1.16, Estim Creat Clear Calc 62.93, Est GFR (MDRD) Af Amer 80, Est GFR (MDRD) Non-Af 66, BUN/Creatinine Ratio 15.5, Glucose 111 H, Calcium 9.2, Total Bilirubin 0.60, AST 33, ALT 33, Alkaline Phosphatase 81, Lactate Dehydrogenase 455 H, C-React Prot Ext Range 52.80 H, Total Protein 8.5 H, Albumin 3.6, Globulin 4.9 H, Albumin/Globulin Ratio 0.7 L 07/18/21 18:55: Lactic Acid 1.9 07/18/21 18:55: Procalcitonin 0.09 07/18/21 18:55: Magnesium 2.2, Ferritin 302, Troponin I High Sens 12 07/18/21 18:55: B-Natriuretic Peptide 15.1 07/18/21 22:46: D-Dimer Quant (PE/DVT) 0.76 H* 07/19/21 07:14: WBC 6.2, RBC 5.08, Hgb 14.5, Hct 46.0, MCV 90.6, MCH 28.5, MCHC 31.5 L, RDW Std Deviation 44.6 H, RDW Coeff of Opal 13.2, Plt Count 280, MPV 9.3, Immature Gran % (Auto) 0.800, Neut % (Auto) 83.9 H, Lymph % (Auto) 5.0 L, Jasper % (Auto) 10.1 H, Eos % (Auto) 0.0, Baso % (Auto) 0.2, Absolute Neuts (auto) 5.2, Absolute Lymphs (auto) 0.31 L, Nucleated RBC % 0 07/19/21 07:14: Sodium 138, Potassium 4.2, Chloride 106, Carbon Dioxide 24.0, Anion Gap 8, BUN 15, Creatinine 0.89, Estim Creat Clear Calc 82.02, Est GFR (MDRD) Af Amer 109, Est GFR (MDRD) Non-Af 90, BUN/Creatinine Ratio 16.8, Glucose 123 H, Calcium 8.0 L, Total Bilirubin 0.50, AST 29, ALT 31, Alkaline Phosphatase 66, Total Protein 6.8, Albumin 2.9 L, Globulin 3.9, Albumin/Globulin Ratio 0.7 L Micro: Microbiology 07/19/21 00:00 Mucosa - Nose Respiratory Panel (PCR) - Final 07/18/21 19:40 Nasal Secretion SARS-CoV-2 Antigen (Rapid) - Final SARS-CoV-2 (COVID 19) Radiography Diagnostic Testing: Radiology Impression Chest X-Ray 07/18/21 19:50 IMPRESSION: Interval worsening of bilateral interstitial and airspace opacities. Electronically Signed: Mark Valentine MD at 20:31 EDT Tel , Service support , Chest CTA 07/19/21 23:45 IMPRESSION: No pulmonary embolus or thoracic aortic dissection or aneurysm. Multifocal groundglass opacities which could represent atypical pneumonia including Covid. Noninfectious edema also possible. Underlying chronic fibrosis in the lower lungs. Coronary artery atherosclerosis. Electronically Signed: Dmitriy Galvan MD at 2:54 EDT Tel , Service support , Physical Exam Const alert, oriented x3 and no apparent distress Constitutional Narrative: Overweight white male lying in bed on 3 L nasal cannula, no signs of respiratory distress, nontoxic Exam Limitations: no limitations HEENT head/scalp atraumatic and moist oral mucous membranes HEENT Narrative: No thrush Head and Scalp: normocephalic Resp normal respiratory effort, no retractions, no use of accessory muscles and clear to auscultation bilaterally Resp Narrative: Diffusely diminished but clear Auscultation: Negative for crackles, rales, rhonchi or wheezes Cardio regular rate, regular rhythm, S1 normal heart sound, S2 normal heart sound, no murmurs, no rub, no gallops, no clicks and no JVD GI normal to inspection, nondistended, normoactive bowel sounds, soft to palpation, non-tender and non-distended Extremity no clubbing, cyanosis or edema Peripheral Pulses: Yes pulses 2+ throughout Neuro oriented x3, CN's II-XII intact bilaterally, moves all extremities and no focal motor deficits Sensorium / Orientation: awake and alert Speech: speech normal Psych Psych Narrative: Flat affect Assessment & Plan Assessment/Plan (1) Pneumonia due to COVID-19 virus: (2) Hypoxia: PLAN: Acute hypoxic respiratory insufficiency secondary to COVID-19 pneumonia -Patient has underlying autoimmune lung disease -Follows with Dr. Landon as an outpatient -Decadron day 2 of -Remdesivir day 2 of 5 -Patient is currently stable on 3 L nasal cannula with an SPO2 of 92 to 97% -Wean O2 as able -If remained stable will assess for home O2 needs -Patient was vaccinated with the Neal [employer] Neal vaccine -Culture x2 are pending -Pulmonary consulted and consult is pending Autoimmune Lung Disease/Antisynthetase syndrome/Interstitial Lung Disease -Complicates presentation, normally on denosumab injections outpatient and BID cellcept -Will hold cellcept given acute infectious COVID presentation as noted above -Patient is not on oxygen at baseline -Follows with Dr. Landon for this as an outpatient -Utilize Decadron at this time for his steroid -It appears that he is on prednisone at baseline PAF -Monitor telemetry -Patient denies history of this but it is documented in his past medical history -He is not on any anticoagulation or rate controlling agents Hyperlipidemia -Continue statin History of hypertension -Patient was normotensive on presentation and remains normotensive -Not on any home medications for blood pressure -Continue to monitor DVT prophylaxis -SCDs -Continue Lovenox 30 mg subcu twice daily CODE STATUS -Not documented -We will verify with patient tomorrow Charges/Coding Visit Charges Inpatient E&M: 05691 Subs Hosp L2
[2021-07-19] MEDS: Atorvastatin Calcium 10 MG Tablet 5 MG PO (22:47)
--- NOTE | 2021-07-19 23:45 | CT_ITS ---
STUDY: CTA CHEST REASON FOR EXAM: Male, 70 years old. Cough. RADIATION DOSAGE (If Supplied By Facility): CTDIvol = ( 13.47 ) mGy, DLP = ( 443.21 ) mGycm TECHNIQUE: The examination was performed with the intravenous administration of IV 100mL Isovue-370. Post-processing of the angiographic images was performed, with MIP reconstructed images. Individualized dose optimization techniques were used for this CT. COMPARISON: CTA chest 08/07/2017 FINDINGS: Heart and great vessels: Heart size normal. No dissection or aneurysm of the thoracic aorta. No pulmonary embolus. No evidence of right heart strain. Coronary artery atherosclerosis. Lungs, pleura: Multifocal groundglass opacities scattered throughout both lungs. This is superimposed upon chronic fibrotic changes in the lung bases. No pneumothorax or pleural effusion. Central airways patent. Mediastinum: Mild paratracheal and subcarinal lymphadenopathy. 1 cm low-density nodule posterior aspect left lobe thyroid. Osseous:No fracture or acute osseous abnormality. Chest wall: No concerning findings. Upper abdomen: No acute findings. Any findings described in the findings sections and not included in the impression are incidental and do not require imaging follow-up. CT/CTA Chest W/WO Contrast IMPRESSION: No pulmonary embolus or thoracic aortic dissection or aneurysm. Multifocal groundglass opacities which could represent atypical pneumonia including Covid. Noninfectious edema also possible. Underlying chronic fibrosis in the lower lungs. Coronary artery atherosclerosis. Electronically Signed: Dmitriy Galvan MD at 2:54 EDT Tel , Service support ,
[2021-07-20] VITALS (11 sets, daily range): BP systolic 109–121; BP diastolic 60–76; PULSE 69–90; RESP 18–20; TEMP 36.1–36.7; O2SAT 15–95
[2021-07-20] MEDS: Albuterol 2.5 MG/3 ML VIAL.NEB. INHALATION (04:50)
--- NOTE | 2021-07-20 07:16 | CON.PCM.CC_ITS ---
Assessment & Plan Assessment/Plan (1) Pneumonia due to COVID-19 virus: PLAN: RECOMMENDATIONS: 1. Continue to wean supplemental oxygen to maintain saturations at or above 90%. 2. Continue remdesivir to complete treatment course. Continue to monitor liver and renal function. 3. Continue Decadron to complete 10-day treatment course. 4. Encourage incentive spirometer use and mobilize patient as tolerated. 5. Resume CellCept once Decadron course is completed. 6. Perform walking oximetry study prior to consideration for discharge home. 7. The patient should follow-up with his primary laboratory technical specialist after discharge from the hospital. IMPRESSIONS: 1. 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 He recently traveled to [place] and subsequently contracted COVID- 19. The patient will be continued on supplemental oxygen to maintain saturations at or above 90%. Agree with holding CellCept for now. Continue Decadron to complete 10-day treatment course. The patient will be continued on remdesivir to complete a 5-day treatment course. Continue to monitor liver and renal function accordingly. Continue Lovenox therapy as ordered. The patient can likely resume his outpatient CellCept regimen once he has completed his treatment course of Decadron. He should follow-up with his primary pulmonary provider as well following discharge from the hospital. 2. 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 These medications can be resumed once the patient has completed his treatment course of Decadron. 3. History of paroxysmal atrial fibrillation/hypertension/hyperlipidemia Complicates care, management, recovery and prognosis. Continue home medications as indicated. This note was generated with [employer] dictation software. It may contain incorrect words, spelling, and punctuation that were not noted in checking the note before signing. HPI Consult Data Date of Consult: 07/20/21 HPI Narrative Reason for Consultation: COVID-19 pneumonia HPI Narrative: The patient is a 70-year-old male, with a history as outlined below, who presented to the emergency department on July 18 with complaints of progressive dyspnea. The patient has a history of interstitial lung disease and asthma, which has been managed in the past by Dr. Landon. His symptoms initially began on the after he returned from [place]. His also contracted coronavirus and is currently in quarantine in [place]. The patient did receive the Nela & Neal vaccination. On presentation to the emergency department, the patient was noted to have a low-grade fever and was hypoxemic on room air. Initial laboratory evaluation revealed no evidence of leukocytosis. D-dimer was mildly elevated to 0.76. Chemistry profile was unremarkable. Chest x-ray demonstrated bilateral airspace opacities. Follow-up CTA chest showed no evidence for PE. Chronic fibrotic lung changes were noted in basis with superimposed multifocal groundglass changes. Rapid coronavirus antigen testing was positive. The patient was placed on supplemental oxygen via nasal cannula and was started on remdesivir and Decadron. He was subsequently admitted to the progressive care unit for further management. [facility] Medical History (Updated 07/19/21 @ 04:[address] Katheryn Beasley MD) Abnormal cardiac CT angiography Antisynthetase syndrome Asthma Atrial fibrillation BPH (benign prostatic hyperplasia) Essential hypertension Fatty liver GERD (gastroesophageal reflux disease) Interstitial lung disease Kidney stones Lung nodule Mixed hyperlipidemia Osteoporosis RBBB (right bundle branch block) Vasovagal syncope Home Medications simvastatin 10 mg PO DAILY 08/07/17 [History Last Taken 08/06/17] mycophenolate mofetil 1,500 mg PO BID 09/16/19 [History Last Taken Unknown] aspirin 81 mg tablet,delayed release 81 mg PO DAILY 07/14/21 [History Last Taken Unknown] cyanocobalamin (vitamin B-12) 500 mcg tablet 500 mcg PO DAILY 07/14/21 [History Last Taken Unknown] denosumab 60 mg/mL subcutaneous syringe 60 mg SUBCUT [id number] 07/14/21 [History Last Taken Unknown] pantoprazole 40 mg tablet,delayed release 40 mg PO DAILY 07/14/21 [History Last Taken Unknown] prednisone 1 mg tablet 5 mg PO BID tab 07/14/21 [History Last Taken Unknown] Vitamin D3 6,000 mcg PO/SL DAILY 07/18/21 [History Last Taken Unknown] prednisone 40 mg PO DAILY 07/18/21 [History Last Taken Unknown] zinc 100 mg PO DAILY 07/18/21 [History Last Taken Unknown] Allergy/AdvReac Type Severity Reaction Status Date / Time Penicillins [PCN] Allergy Rash Verified 07/18/21 18:58 allopurinol AdvReac Unknown cough Verified 07/18/21 18:58 morphine AdvReac Other Verified 07/18/21 18:58 tamsulosin [From Flomax] AdvReac Other Verified 07/18/21 18:58 Family History (Updated 07/19/21 @ 04:[address] Katheryn Beasley MD) Grandfather CVA (cerebral vascular accident) Grandmother Congestive heart failure Grandmother Cardiac pacemaker in situ Mother Heart disease Hypertension Father Heart disease Surgical History History of inguinal hernia repair History of lithotripsy History of umbilical hernia repair Social History (Updated 07/19/21 @ 04:[address] Katheryn Beasley MD) household members: spouse Smoking Status: Never smoker alcohol intake: current details: Rare substance use type: does not use caffeine: Yes ROS Constitutional Constitutional: Reports fatigue and malaise Eyes Eyes: Denies blurry vision or change in vision ENT HEENT: Denies dysphagia, loss taste/smell, nasal congestion or nasal discharge Cardiovascular Cardiovascular: Reports dyspnea Respiratory/Chest Respiratory/Chest: Reports cough and dyspnea Gastrointestinal Gastrointestinal: Denies abdominal pain, diarrhea, nausea or vomiting Genitourinary Genitourinary: Denies difficulty urinating Musculoskeletal Musculoskeletal: Denies arthralgias or back pain Integumentary Integumentary: Denies lesions, rash or skin ulcer Neurologic Neurologic: Denies abnormal gait or abnormal speech Psychiatric Psychiatric: Denies anxiety or depression Endocrine Endocrinology: Reports fatigue Hematologic/Lymphatic Hematologic/Lymphatic: Denies easy bleeding or easy bruising Physical Exam Const alert and no apparent distress General Appearance: cooperative HEENT normocephalic, head/scalp atraumatic and moist oral mucous membranes Eyes PERRL, EOMs intact bilaterally and conjunctivae normal Neck supple General: trachea midline Resp normal respiratory effort and no use of accessory muscles Auscultation: Negative for rales, rhonchi or wheezes Cardio regular rate and regular rhythm GI normal to inspection, nondistended, normoactive bowel sounds Extremity no clubbing, cyanosis or edema Skin no rashes or lesions noted Neuro CN's II-XII intact bilaterally, moves all extremities and no focal motor deficits Psych cooperative and affect normal Medical Records Data Medical Nutrition Assessment Dietitian: Malnutrition Criteria Met Start: 07/19/21 15:14 Freq: Status: Active Protocol: Document 07/19/21 15:14 RMA (Rec: 07/19/21 15:15 RMA [id number]) Nutrition Malnutrition Evidence of Malnutrition Exists Yes Malnutrition (severe): Acute Illness/Injury Evidenced By Suboptimal Energy Intake ( Severe),Weight Loss (Severe) Clinical Problem Acute Disease or Injury Related Malnutrition Etiology Severe protein-calorie malnutrition in the context of acute illness related to ongoing poor appetite due to infection Signs/Symptoms as evidenced by 4-5% wt loss x past 1-2 weeks and oral intake meeting less than 50% estimated nutrition needs x past 1-2 weeks. Status Active Problem Recommendation Dietitian Recommendations/Changes Continue Cardiac diet as ordered. Will add 240ml Ensure Enlive BID w/ meals for additional 700 calorie and 40gm protein if consumed. Adjust ONS and diet as needed to optimize intake at meals. Lab / Micro Data Result Diagrams: 07/19/21 07:14 07/19/21 07:14 Labs: Laboratory Results - last 24 hr 07/19/21 07:14: WBC 6.2, RBC 5.08, Hgb 14.5, Hct 46.0, MCV 90.6, MCH 28.5, MCHC 31.5 L, RDW Std Deviation 44.6 H, RDW Coeff of Opal 13.2, Plt Count 280, MPV 9.3, Immature Gran % (Auto) 0.800, Neut % (Auto) 83.9 H, Lymph % (Auto) 5.0 L, [place] % (Auto) 10.1 H, Eos % (Auto) 0.0, Baso % (Auto) 0.2, Absolute Neuts (auto) 5.2, Absolute Lymphs (auto) 0.31 L, Nucleated RBC % 0 07/19/21 07:14: Sodium 138, Potassium 4.2, Chloride 106, Carbon Dioxide 24.0, Anion Gap 8, BUN 15, Creatinine 0.89, Estim Creat Clear Calc 82.02, Est GFR (MDRD) Af Amer 109, Est GFR (MDRD) Non-Af 90, BUN/Creatinine Ratio 16.8, Glucose 123 H, Calcium 8.0 L, Total Bilirubin 0.50, AST 29, ALT 31, Alkaline Phosphatase 66, Total Protein 6.8, Albumin 2.9 L, Globulin 3.9, Albumin/Globulin Ratio 0.7 L Micro: Microbiology 07/19/21 01:15 Sputum, Expectorated/Coughed Gram Stain - Final 07/19/21 00:00 Mucosa - Nose Respiratory Panel (PCR) - Final Charges/Coding Visit Charges Inpatient E&M: 33407 Init Hosp L3
[2021-07-20] MEDS: Pantoprazole Sodium 40 MG Tablet PO (10:17)
[2021-07-20] MEDS: Aspirin E.C. 81 MG Tablet PO (10:17)
[2021-07-20] MEDS: Cyanocobalamin 500 MCG Tablet PO (10:17)
[2021-07-20] MEDS: dexAMETHasone 10 MG/ML Vial 6 MG IV (10:18)
[2021-07-20] MEDS: Enoxaparin 30 MG/0.3 ML Syringe SC ×2 (10:18→22:35)
[2021-07-20] MEDS: Cholecalciferol (VIT D3) 25 MCG TABLET (1,000 UNITS) 150 MCG PO (10:18)
[2021-07-20] MEDS: 0.9% Saline Lock 10 ML Syringe IV (10:19)
--- NOTE | 2021-07-20 12:34 | PCM.PN.HOSP ---
Subjective Subjective Patient states that he still feels short of breath especially with exertion and is still having fatigue. Does not feel quite as poor as he did yesterday. Denies any acute issues. Upon asking he does say that his tongue is a bit sore. On exam he does appear to have some thrush. Objective Data Objective Data Vital Signs: Vital Signs Temp Pulse Resp BP Pulse Ox 97.9 F 77 20 H 109/68 85 07/20/21 10:30 07/20/21 10:30 07/20/21 10:30 07/20/21 10:30 07/20/21 10:32 Oxygen Flow Rate (L/min) [ 87 AMBULATING with Oxygen #1] Oxygen Flow Rate (L/min) 6 Oxygen Delivery Method Nasal Cannula Weight: 87.4 kg Body Mass Index (BMI) 26.4 Intake & Output: Intake and Output for Last 24 Hours 07/18/21 07/19/21 07/20/21 23:59 23:59 23:59 Intake Total 1730 / 1730 370 / 370 Output Total 100 / 100 Balance 1730 / 1730 270 / 270 Medical Nutrition Assessment Dietitian: Malnutrition Criteria Met Start: 07/19/21 15:14 Freq: Status: Active Protocol: Document 07/19/21 15:14 RMA (Rec: 07/19/21 15:15 RMA [id number]) Nutrition Malnutrition Evidence of Malnutrition Exists Yes Malnutrition (severe): Acute Illness/Injury Evidenced By Suboptimal Energy Intake ( Severe),Weight Loss (Severe) Clinical Problem Acute Disease or Injury Related Malnutrition Etiology Severe protein-calorie malnutrition in the context of acute illness related to ongoing poor appetite due to infection Signs/Symptoms as evidenced by 4-5% wt loss x past 1-2 weeks and oral intake meeting less than 50% estimated nutrition needs x past 1-2 weeks. Status Active Problem Recommendation Dietitian Recommendations/Changes Continue Cardiac diet as ordered. Will add 240ml Ensure Enlive BID w/ meals for additional 700 calorie and 40gm protein if consumed. Adjust ONS and diet as needed to optimize intake at meals. Lab / Micro Data Result Diagrams: 07/19/21 07:14 07/19/21 07:14 Micro: Microbiology 07/19/21 01:15 Sputum, Expectorated/Coughed Gram Stain - Final 07/19/21 01:15 Sputum, Expectorated/Coughed Respiratory Culture - Preliminary Appears to be normal respiratory laura. Further studies to follow. 07/19/21 00:00 Mucosa - Nose Respiratory Panel (PCR) - Final 07/18/21 19:40 Nasal Secretion SARS-CoV-2 Antigen (Rapid) - Final SARS-CoV-2 (COVID 19) Physical Exam Const alert, oriented x3 and no apparent distress Constitutional Narrative: Overweight white male lying in bed on 6 L nasal cannula, no signs of respiratory distress, nontoxic, appears as if he feels a bit better today than he did yesterday, nursing is at bedside Exam Limitations: no limitations Nutritional Appearance: overweight HEENT head/scalp atraumatic and moist oral mucous membranes HEENT Narrative: Mild thrush noted on exam, Mallampati 2 Head and Scalp: normocephalic Resp normal respiratory effort, no retractions, no use of accessory muscles and clear to auscultation bilaterally Resp Narrative: Diffusely diminished with few scattered fine crackles Auscultation: crackles; Negative for rales, rhonchi or wheezes Cardio regular rate, regular rhythm, S1 normal heart sound, S2 normal heart sound, no murmurs, no rub, no gallops, no clicks and no JVD GI normal to inspection, nondistended, normoactive bowel sounds, soft to palpation, non-tender and non-distended Extremity no clubbing, cyanosis or edema Peripheral Pulses: Yes pulses 2+ throughout Neuro oriented x3, moves all extremities and no focal motor deficits Sensorium / Orientation: awake and alert Speech: speech normal Assessment & Plan Assessment/Plan (1) Pneumonia due to COVID-19 virus: (2) Hypoxia: PLAN: Acute hypoxic respiratory insufficiency secondary to COVID-19 pneumonia -Patient has underlying autoimmune lung disease -Follows with Dr. Landon as an outpatient -Decadron day 3 of -Remdesivir day 3 of 5 -Patient has had increasing oxygen requirements overnight and is now on 6 L nasal cannula with an SPO2 of 93 to 95% -Ambulatory oxygenation was requiring 15 L to maintain oxygen saturations greater than 92% and on room air sats were 85% -Sputum cultures unremarkable -Patient was vaccinated with the Neal & Neal vaccine -Culture x2 remain pending -Continue I-S -Pulmonary consulted and consult is pending Autoimmune Lung Disease/Antisynthetase syndrome/Interstitial Lung Disease -Complicates presentation, normally on denosumab injections outpatient and BID cellcept -Will continue to hold cellcept given acute infectious COVID presentation as noted above until Decadron course is completed -Patient is on 5 mg of prednisone at baseline -Patient is not on oxygen at baseline -Follows with Dr. Landon for this as an outpatient -Utilize Decadron at this time for his steroid -It appears that he is on prednisone at baseline PAF -Monitor telemetry -Patient denies history of this but it is documented in his past medical history -He is not on any anticoagulation or rate controlling agents -Sinus rhythm Hyperlipidemia -Continue statin History of hypertension -Patient was normotensive on presentation and remains normotensive -Not on any home medications for blood pressure -Continue to monitor DVT prophylaxis -SCDs -Continue Lovenox 30 mg subcu twice daily CODE STATUS -Not documented -We will verify with patient tomorrow Charges/Coding Visit Charges Inpatient E&M: 95348 Subs Hosp L2
[2021-07-20] MEDS: NYSTATIN 500,000 UNIT/5 ML UDC 500000 UNIT PO ×3 (15:53→22:35)
[2021-07-20] MEDS: Loperamide 2 MG Capsule PO (17:40)
[2021-07-20] MEDS: Atorvastatin Calcium 10 MG Tablet 5 MG PO (22:35)
[2021-07-21] VITALS (14 sets, daily range): BP systolic 105–125; BP diastolic 53–69; PULSE 70–98; RESP 18–20; TEMP 36.1–36.5; O2SAT 92–96
[2021-07-21 06:31] LABS: Absolute Neutrophil Count 10.6 X10^3/uL (2.0-7.7); Basophil# 0.03 X10^3/uL; Basophil% 0.3 % (0-1); Hematocrit 47.9 % (40-54); Hemoglobin 15.3 g/dL (13.0-16.5); Lymphocyte % 4.2 % (19-41); Mean Corp Hgb Conc 31.9 g/dL (32-36); Mean Corpuscular Hgb 28.9 pg (27.0-32.0); Mean Corpuscular Volume 90.4 fL (80-94); Mean Platelet Vol. 9.7 fl (6.2-12.0); Monocyte# 0.69 X10^3/uL; Monocyte% 5.8 % (0-10); NRBC Flagged by Analyzer 0 % (0-5); Neutrophil # 10.55 X10^3/uL (2.7-7.7); Neutrophil % 89.1 % (47-70); POSITIVE DIFFERENTIAL YES; Platelet Count 321 K/mm3 (150-450); RBC Distribution Width CV 13.3 % (11.6-14.6); RBC Distribution Width SD 44.8 fl (35.1-43.9); White Blood Count 11.8 K/mm3 (4.4-11.0)
[2021-07-21 06:50] LABS: Differential Indicated SCAN CRITERIA MET
[2021-07-21 06:58] LABS: ALB/GLOB Ratio 0.7 RATIO (0.9-2.4); AST(SGOT) 21 U/L (15-37); Alanine Aminotransfer ALT/SGPT 28 U/L (16-61); Albumin, Serum 2.8 g/dL (3.2-5.0); Alkaline Phosphatase 68 U/L (45-117); Anion Gap 8 (5-15); BUN 17 mg/dL (7-18); BUN/Creat Ratio 20.9 RATIO (10-20); Calcium,Total 8.4 mg/dL (8.5-10.1); Chloride 108 mmol/L (98-107); Creatinine, Serum 0.82 mg/dL (0.70-1.30); EST Glomerular Filtration Rate 100 mL/min (>60); Est Glom Filt Rate - Afr Amer 121 mL/min (>60); Estimated Creatinine Clearance 89.02 ml/min; Globulin 3.9 g/dL (2.2-4.2); Glucose 104 mg/dL (74-106); Potassium 3.8 mmol/L (3.5-5.1); Protein, Total 6.7 g/dL (6.4-8.2); Sodium Level 141 mmol/L (136-145)
--- NOTE | 2021-07-21 07:21 | PCS.PANDOC ---
PANDEMIC DOCUMENTATION INITIATED: Date: 07/07/2021 Time: 190
[2021-07-21] MEDS: 0.9% Saline Lock 10 ML Syringe IV ×3 (09:05→22:11)
[2021-07-21] MEDS: Cyanocobalamin 500 MCG Tablet PO (09:05)
[2021-07-21] MEDS: Cholecalciferol (VIT D3) 25 MCG TABLET (1,000 UNITS) 150 MCG PO (09:05)
[2021-07-21] MEDS: Enoxaparin 30 MG/0.3 ML Syringe SC ×2 (09:06→22:10)
[2021-07-21] MEDS: NYSTATIN 500,000 UNIT/5 ML UDC 500000 UNIT PO ×4 (09:06→22:10)
[2021-07-21] MEDS: Aspirin E.C. 81 MG Tablet PO (09:06)
[2021-07-21] MEDS: dexAMETHasone 10 MG/ML Vial 6 MG IV (09:06)
[2021-07-21] MEDS: Pantoprazole Sodium 40 MG Tablet PO (09:06)
--- NOTE | 2021-07-21 12:12 | PCM.PN.HOSP ---
Subjective Subjective Patient states that he gets fairly winded with exertion but does not get that short of breath at rest. His oxygen has required up titration to 12 L now at rest with sats of 92 to 93%. He states his tongue is feeling better today. He denies any current needs. Objective Data Objective Data Vital Signs: Vital Signs Temp Pulse Resp BP Pulse Ox 97.0 F L 83 20 H 125/64 H 92 07/21/21 09:05 07/21/21 09:05 07/21/21 09:05 07/21/21 09:05 07/21/21 10:12 Oxygen Flow Rate (L/min) [ 87 AMBULATING with Oxygen #1] Oxygen Flow Rate (L/min) 12 Oxygen Delivery Method Nasal Cannula Weight: 89.7 kg Body Mass Index (BMI) 26.4 Intake & Output: Intake and Output for Last 24 Hours 07/19/21 07/20/21 07/21/21 23:59 23:59 23:59 Intake Total 1730 / 1730 370 / 490 1090 / 1090 Output Total 100 / 100 Balance 1730 / 1730 270 / 390 1090 / 1090 Medical Nutrition Assessment Dietitian: Malnutrition Criteria Met Start: 07/19/21 15:14 Freq: Status: Active Protocol: Document 07/19/21 15:14 RMA (Rec: 07/19/21 15:15 RMA [id number]) Nutrition Malnutrition Evidence of Malnutrition Exists Yes Malnutrition (severe): Acute Illness/Injury Evidenced By Suboptimal Energy Intake ( Severe),Weight Loss (Severe) Clinical Problem Acute Disease or Injury Related Malnutrition Etiology Severe protein-calorie malnutrition in the context of acute illness related to ongoing poor appetite due to infection Signs/Symptoms as evidenced by 4-5% wt loss x past 1-2 weeks and oral intake meeting less than 50% estimated nutrition needs x past 1-2 weeks. Status Active Problem Recommendation Dietitian Recommendations/Changes Continue Cardiac diet as ordered. Will add 240ml Ensure Enlive BID w/ meals for additional 700 calorie and 40gm protein if consumed. Adjust ONS and diet as needed to optimize intake at meals. Lab / Micro Data Result Diagrams: 07/21/21 06:04 07/21/21 06:04 Labs: Laboratory Results - last 24 hr 07/21/21 06:04: WBC 11.8 H, RBC 5.30, Hgb 15.3, Hct 47.9, MCV 90.4, MCH 28.9, MCHC 31.9 L, RDW Std Deviation 44.8 H, RDW Coeff of Opal 13.3, Plt Count 321, MPV 9.7, Immature Gran % (Auto) 0.600, Neut % (Auto) 89.1 H, Lymph % (Auto) 4.2 L, [place] % (Auto) 5.8, Eos % (Auto) 0.0, Baso % (Auto) 0.3, Absolute Neuts (auto) 10.6 H, Absolute Lymphs (auto) 0.50 L, Nucleated RBC % 0 07/21/21 06:04: Sodium 141, Potassium 3.8, Chloride 108 H, Carbon Dioxide 25.0, Anion Gap 8, BUN 17, Creatinine 0.82, Estim Creat Clear Calc 89.02, Est GFR (MDRD) Af Amer 121, Est GFR (MDRD) Non-Af 100, BUN/Creatinine Ratio 20.9 H, Glucose 104, Calcium 8.4 L, Total Bilirubin 0.70, AST 21, ALT 28, Alkaline Phosphatase 68, Total Protein 6.7, Albumin 2.8 L, Globulin 3.9, Albumin/Globulin Ratio 0.7 L Micro: Microbiology 07/19/21 01:15 Sputum, Expectorated/Coughed Gram Stain - Final 07/19/21 01:15 Sputum, Expectorated/Coughed Respiratory Culture - Final 07/18/21 19:25 Blood Culture (Wb) - Anticubital Left Blood Culture - Preliminary No growth in 48 hours. 07/18/21 18:55 Blood Culture (Wb) - Anticubital Left Blood Culture - Preliminary No growth in 48 hours. 07/19/21 00:00 Mucosa - Nose Respiratory Panel (PCR) - Final 07/18/21 19:40 Nasal Secretion SARS-CoV-2 Antigen (Rapid) - Final SARS-CoV-2 (COVID 19) Physical Exam Const alert, oriented x3 and no apparent distress Constitutional Narrative: Overweight white male lying in bed on 12 L heated high flow nasal cannula, appears mildly dyspneic, nontoxic Exam Limitations: no limitations Nutritional Appearance: overweight HEENT head/scalp atraumatic and moist oral mucous membranes HEENT Narrative: Mild thrush noted although improved since yesterday Head and Scalp: normocephalic Resp normal respiratory effort, no retractions, no use of accessory muscles and clear to auscultation bilaterally Resp Narrative: Diffusely diminished with few scattered fine crackles Auscultation: crackles; Negative for rales, rhonchi or wheezes Cardio regular rate, regular rhythm, S1 normal heart sound, S2 normal heart sound, no murmurs, no rub, no gallops, no clicks and no JVD GI normal to inspection, nondistended, normoactive bowel sounds, soft to palpation, non-tender and non-distended Extremity no clubbing, cyanosis or edema Neuro oriented x3, moves all extremities and no focal motor deficits Sensorium / Orientation: awake and alert Speech: speech normal Assessment & Plan Assessment/Plan (1) Pneumonia due to COVID-19 virus: (2) Hypoxia: PLAN: Acute hypoxic respiratory insufficiency secondary to COVID-19 pneumonia -Patient has underlying autoimmune lung disease -Follows with Dr. Landon as an outpatient -Decadron day 4 of -Remdesivir day 4 of -Patient requiring increased oxygen in the last 24 hours now up from 6 L to 12 L heated high flow nasal cannula with SPO2 92 to 93%--> 15 L with exertion -Lasix 20 mg IV push x1 dose -Sputum cultures unremarkable -Respiratory viral panel is negative -Patient was vaccinated with the Neal & Neal vaccine -Blood cultures are negative at 48 hours with no growth -Continue I-S -Pulmonary is following Autoimmune Lung Disease/Antisynthetase syndrome/Interstitial Lung Disease -Complicates presentation, normally on denosumab injections outpatient and BID cellcept -Will continue to hold cellcept given acute infectious COVID presentation as noted above until Decadron course is completed -Patient is on 5 mg of prednisone at baseline -Patient is not on oxygen at baseline -Follows with Dr. Landon for this as an outpatient -Utilize Decadron at this time for his steroid -It appears that he is on prednisone at baseline -Pulmonary medicine is following PAF -Monitor telemetry -Patient denies history of this but it is documented in his past medical history -He is not on any anticoagulation or rate controlling agents -Sinus rhythm Hyperlipidemia -Continue statin History of hypertension -Patient was normotensive on presentation and remains normotensive -Not on any home medications for blood pressure -Continue to monitor DVT prophylaxis -SCDs -Continue Lovenox 30 mg subcu twice daily CODE STATUS -Not documented -Verification and progress Charges/Coding Visit Charges Inpatient E&M: 21454 Subs Hosp L2
[2021-07-21] MEDS: Furosemide 20 MG/2 ML VIAL IV (13:18)
--- NOTE | 2021-07-21 16:09 | PN.CC_ITS ---
Assessment & Plan Assessment/Plan (1) Pneumonia due to COVID-19 virus: PLAN: RECOMMENDATIONS: 1. Continue to wean supplemental oxygen to maintain saturations at or above 90%. 2. Continue remdesivir to complete treatment course. Continue to monitor liver and renal function. 3. Continue Decadron to complete 10-day treatment course. 4. Encourage incentive spirometer use and mobilize patient as tolerated. 5. Resume CellCept once Decadron course is completed. 6. Perform walking oximetry study prior to consideration for discharge home. 7. The patient should follow-up with his primary civil engineering design draftsperson after discharge from the hospital. IMPRESSIONS: 1. 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 He recently traveled to [place] and subsequently contracted COVID- 19. The patient will be continued on supplemental oxygen to maintain saturations at or above 90%. Agree with holding CellCept for now. Continue Decadron and remdesivir to complete treatment courses. Continue to monitor liver and renal function accordingly. Continue Lovenox therapy as ordered. The patient can likely resume his outpatient CellCept regimen once he has completed his treatment course of Decadron. He should follow-up with his primary pulmonary provider as well following discharge from the hospital. Patient did have desaturation earlier today, but this is improving. This would be suggestive of a mucous plug. The development of hemoptysis may represent a nasal bleed versus DAH. If hypoxia persists, may need to consider repeat imaging. Patient is off of CellCept at this time, but does have high-dose Decadron. 2. 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 These medications can be resumed once the patient has completed his treatment course of Decadron. 3. History of paroxysmal atrial fibrillation/hypertension/hyperlipidemia Complicates care, management, recovery and prognosis. Continue home medications as indicated. This note was generated with [employer] dictation software. It may contain incorrect words, spelling, and punctuation that were not noted in checking the note before signing. Subjective Subjective The patient did okay overnight. Patient subjectively feels unchanged compared to previous. Patient does report mild hemoptysis over the last 24 hours. No epistaxis has been reported. Objective Data Objective Data Vital Signs: Vital Signs Temp Pulse Resp BP Pulse Ox 36.1 C L 88 18 107/69 94 07/21/21 15:05 07/21/21 15:05 07/21/21 15:05 07/21/21 15:05 07/21/21 15:05 Oxygen Flow Rate (L/min) [ 87 AMBULATING with Oxygen #1] Oxygen Flow Rate (L/min) 7 Oxygen Delivery Method Nasal Cannula Weight: 89.7 kg Body Mass Index (BMI) 26.4 Intake & Output: Intake and Output for Last 24 Hours 07/19/21 07/20/21 07/21/21 23:59 23:59 23:59 Intake Total 1730 / 1730 370 / 490 1090 / 1090 Output Total 100 / 100 Balance 1730 / 1730 270 / 390 1090 / 1090 Medical Nutrition Assessment Dietitian: Malnutrition Criteria Met Start: 07/19/21 15:14 Freq: Status: Active Protocol: Document 07/19/21 15:14 RMA (Rec: 07/19/21 15:15 RMA [id number]) Nutrition Malnutrition Evidence of Malnutrition Exists Yes Malnutrition (severe): Acute Illness/Injury Evidenced By Suboptimal Energy Intake ( Severe),Weight Loss (Severe) Clinical Problem Acute Disease or Injury Related Malnutrition Etiology Severe protein-calorie malnutrition in the context of acute illness related to ongoing poor appetite due to infection Signs/Symptoms as evidenced by 4-5% wt loss x past 1-2 weeks and oral intake meeting less than 50% estimated nutrition needs x past 1-2 weeks. Status Active Problem Recommendation Dietitian Recommendations/Changes Continue Cardiac diet as ordered. Will add 240ml Ensure Enlive BID w/ meals for additional 700 calorie and 40gm protein if consumed. Adjust ONS and diet as needed to optimize intake at meals. Lab / Micro Data Result Diagrams: 07/21/21 06:04 07/21/21 06:04 Labs: Laboratory Results - last 24 hr 07/21/21 06:04: WBC 11.8 H, RBC 5.30, Hgb 15.3, Hct 47.9, MCV 90.4, MCH 28.9, MCHC 31.9 L, RDW Std Deviation 44.8 H, RDW Coeff of Opal 13.3, Plt Count 321, MPV 9.7, Immature Gran % (Auto) 0.600, Neut % (Auto) 89.1 H, Lymph % (Auto) 4.2 L, [place] % (Auto) 5.8, Eos % (Auto) 0.0, Baso % (Auto) 0.3, Absolute Neuts (auto) 10.6 H, Absolute Lymphs (auto) 0.50 L, Nucleated RBC % 0 07/21/21 06:04: Sodium 141, Potassium 3.8, Chloride 108 H, Carbon Dioxide 25.0, Anion Gap 8, BUN 17, Creatinine 0.82, Estim Creat Clear Calc 89.02, Est GFR (MDRD) Af Amer 121, Est GFR (MDRD) Non-Af 100, BUN/Creatinine Ratio 20.9 H, Glucose 104, Calcium 8.4 L, Total Bilirubin 0.70, AST 21, ALT 28, Alkaline Phosphatase 68, Total Protein 6.7, Albumin 2.8 L, Globulin 3.9, Albumin/Globulin Ratio 0.7 L Micro: Microbiology 07/19/21 01:15 Sputum, Expectorated/Coughed Gram Stain - Final 07/19/21 01:15 Sputum, Expectorated/Coughed Respiratory Culture - Final 07/18/21 19:25 Blood Culture (Wb) - Anticubital Left Blood Culture - Preliminary No growth in 48 hours. 07/18/21 18:55 Blood Culture (Wb) - Anticubital Left Blood Culture - Preliminary No growth in 48 hours. 07/19/21 00:00 Mucosa - Nose Respiratory Panel (PCR) - Final 07/18/21 19:40 Nasal Secretion SARS-CoV-2 Antigen (Rapid) - Final SARS-CoV-2 (COVID 19) Physical Exam Const alert and no apparent distress General Appearance: cooperative HEENT normocephalic, head/scalp atraumatic and moist oral mucous membranes Eyes PERRL, EOMs intact bilaterally and conjunctivae normal Neck supple General: trachea midline Chest inspection of chest normal Chest: symmetrical chest wall rise; Negative for crepitus Resp normal respiratory effort and no use of accessory muscles Auscultation: Negative for rales, rhonchi or wheezes Cardio regular rate and regular rhythm GI normal to inspection, nondistended, normoactive bowel sounds Extremity no clubbing, cyanosis or edema Skin no rashes or lesions noted Neuro CN's II-XII intact bilaterally, moves all extremities and no focal motor deficits Psych cooperative and affect normal Charges/Coding Visit Charges Inpatient E&M: 00264 Subs Hosp L3
[2021-07-21] MEDS: Loperamide 2 MG Capsule PO (17:32)
[2021-07-21] MEDS: Atorvastatin Calcium 10 MG Tablet 5 MG PO (22:10)
[2021-07-22] VITALS (11 sets, daily range): BP systolic 111–125; BP diastolic 62–72; PULSE 73–159; RESP 18–20; TEMP 36.3–36.9; O2SAT 91–96
[2021-07-22 07:53] LABS: Absolute Lymphocyte Count 0.52 X10^3/uL (0.83-4.51); Absolute Neutrophil Count 15.9 X10^3/uL (2.0-7.7); Basophil# 0.03 X10^3/uL; Basophil% 0.2 % (0-1); Hematocrit 50.6 % (40-54); Hemoglobin 15.9 g/dL (13.0-16.5); Lymphocyte # 0.52 X10^3/ul (0.83-4.51); Mean Corp Hgb Conc 31.4 g/dL (32-36); Mean Corpuscular Hgb 28.6 pg (27.0-32.0); Mean Platelet Vol. 9.6 fl (6.2-12.0); Monocyte# 0.94 X10^3/uL; Monocyte% 5.4 % (0-10); NRBC Flagged by Analyzer 0 % (0-5); Neutrophil # 15.89 X10^3/uL (2.7-7.7); Neutrophil % 90.6 % (47-70); POSITIVE DIFFERENTIAL YES; Platelet Count 367 K/mm3 (150-450); RBC Distribution Width CV 13.3 % (11.6-14.6); RBC Distribution Width SD 45.1 fl (35.1-43.9); Red Blood Count 5.56 M/mm3 (4.6-6.2); White Blood Count 17.5 K/mm3 (4.4-11.0)
[2021-07-22 07:57] LABS: Differential Indicated SCAN CRITERIA MET
[2021-07-22 08:21] LABS: ALB/GLOB Ratio 0.7 RATIO (0.9-2.4); AST(SGOT) 18 U/L (15-37); Alanine Aminotransfer ALT/SGPT 30 U/L (16-61); Alkaline Phosphatase 73 U/L (45-117); Anion Gap 5 (5-15); BUN 25 mg/dL (7-18); BUN/Creat Ratio 29.8 RATIO (10-20); Calcium,Total 9.1 mg/dL (8.5-10.1); Chloride 106 mmol/L (98-107); Creatinine, Serum 0.84 mg/dL (0.70-1.30); EST Glomerular Filtration Rate 97 mL/min (>60); Est Glom Filt Rate - Afr Amer 117 mL/min (>60); Globulin 4.1 g/dL (2.2-4.2); Glucose 94 mg/dL (74-106); Potassium 3.8 mmol/L (3.5-5.1); Protein, Total 7.1 g/dL (6.4-8.2); Sodium Level 141 mmol/L (136-145)
[2021-07-22] MEDS: 0.9% Saline Lock 10 ML Syringe IV (09:15)
[2021-07-22] MEDS: dexAMETHasone 10 MG/ML Vial 6 MG IV (09:16)
[2021-07-22] MEDS: Enoxaparin 30 MG/0.3 ML Syringe SC ×2 (09:16→21:27)
[2021-07-22] MEDS: NYSTATIN 500,000 UNIT/5 ML UDC 500000 UNIT PO ×4 (09:18→21:27)
[2021-07-22] MEDS: Aspirin E.C. 81 MG Tablet PO (09:18)
[2021-07-22] MEDS: Cholecalciferol (VIT D3) 25 MCG TABLET (1,000 UNITS) 150 MCG PO (09:18)
[2021-07-22] MEDS: Pantoprazole Sodium 40 MG Tablet PO (09:19)
[2021-07-22] MEDS: Cyanocobalamin 500 MCG Tablet PO (09:19)
--- NOTE | 2021-07-22 13:16 | PCM.PN.INT ---
Assessment & Plan Assessment/Plan (1) Pneumonia due to COVID-19 virus: PLAN: RECOMMENDATIONS: 1. Continue to wean supplemental oxygen to maintain saturations at or above 90%. 2. Continue remdesivir to complete treatment course. Continue to monitor liver and renal function. 3. Continue Decadron to complete 10-day treatment course. 4. Encourage incentive spirometer use and mobilize patient as tolerated. Will order walking oximetry to facilitate ambulation 5. Resume CellCept once Decadron course is completed. 6. Perform walking oximetry study prior to consideration for discharge home. 7. The patient should follow-up with his primary information security architect after discharge from the hospital. IMPRESSIONS: 1. 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 He recently traveled to [place] and subsequently contracted COVID-19. The patient will be continued on supplemental oxygen to maintain saturations at or above 90%. Agree with holding CellCept for now. Continue Decadron and remdesivir to complete treatment courses. Continue to monitor liver and renal function accordingly. Continue Lovenox therapy as ordered. The patient can likely resume his outpatient CellCept regimen once he has completed his treatment course of Decadron. He should follow-up with his primary pulmonary provider as well following discharge from the hospital. Patient saturations have remained relatively stable. Failure to progress may be secondary to poor patient motivation. Stressed the importance of incentive spirometer and out of bed to facilitate weaning of supplemental oxygen. 2. 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 These medications can be resumed once the patient has completed his treatment course of Decadron. 3. History of paroxysmal atrial fibrillation/hypertension/hyperlipidemia Complicates care, management, recovery and prognosis. Continue home medications as indicated. This note was generated with [employer] dictation software. It may contain incorrect words, spelling, and punctuation that were not noted in checking the note before signing. Subjective Subjective Patient did okay overnight. Patient subjectively feels unchanged compared to yesterday. Patient does continue to report mild hemoptysis. No significant epistaxis has been reported. Patient does admit that he has not been out of bed today and has not used his incentive spirometer as of 1 PM. Patient feels like on never gone to leave. Objective Data Objective Data Vital Signs: Vital Signs Temp Pulse Resp BP Pulse Ox 36.3 C L 95 20 H 111/62 94 07/22/21 09:15 07/22/21 09:15 07/22/21 09:15 07/22/21 09:15 07/22/21 09:15 Oxygen Flow Rate (L/min) [ 87 AMBULATING with Oxygen #1] Oxygen Flow Rate (L/min) 7 Oxygen Delivery Method Nasal Cannula Weight: 85.5 kg Body Mass Index (BMI) 26.4 Intake & Output: Intake and Output for Last 24 Hours 07/20/21 07/21/21 07/22/21 23:59 23:59 23:59 Intake Total 370 / 490 1450 / 1450 1210 / 1210 Output Total 100 / 100 300 / 300 700 / 700 Balance 270 / 390 1150 / 1150 510 / 510 Medical Nutrition Assessment Dietitian: Malnutrition Criteria Met Start: 07/19/21 15:14 Freq: Status: Active Protocol: Document 07/19/21 15:14 RMA (Rec: 07/19/21 15:15 RMA [id number]) Nutrition Malnutrition Evidence of Malnutrition Exists Yes Malnutrition (severe): Acute Illness/Injury Evidenced By Suboptimal Energy Intake ( Severe),Weight Loss (Severe) Clinical Problem Acute Disease or Injury Related Malnutrition Etiology Severe protein-calorie malnutrition in the context of acute illness related to ongoing poor appetite due to infection Signs/Symptoms as evidenced by 4-5% wt loss x past 1-2 weeks and oral intake meeting less than 50% estimated nutrition needs x past 1-2 weeks. Status Active Problem Recommendation Dietitian Recommendations/Changes Continue Cardiac diet as ordered. Will add 240ml Ensure Enlive BID w/ meals for additional 700 calorie and 40gm protein if consumed. Adjust ONS and diet as needed to optimize intake at meals. Lab / Micro Data Result Diagrams: 07/22/21 07:20 07/22/21 07:20 Labs: Laboratory Results - last 24 hr 07/22/21 07:20: WBC 17.5 H, RBC 5.56, Hgb 15.9, Hct 50.6, MCV 91.0, MCH 28.6, MCHC 31.4 L, RDW Std Deviation 45.1 H, RDW Coeff of Opal 13.3, Plt Count 367, MPV 9.6, Immature Gran % (Auto) 0.800, Neut % (Auto) 90.6 H, Lymph % (Auto) 3.0 L, [place] % (Auto) 5.4, Eos % (Auto) 0.0, Baso % (Auto) 0.2, Absolute Neuts (auto) 15.9 H, Absolute Lymphs (auto) 0.52 L, Nucleated RBC % 0, Differential Comment COMMENT 07/22/21 07:20: Sodium 141, Potassium 3.8, Chloride 106, Carbon Dioxide 30.0, Anion Gap 5, BUN 25 H, Creatinine 0.84, Estim Creat Clear Calc 86.90, Est GFR (MDRD) Af Amer 117, Est GFR (MDRD) Non-Af 97, BUN/Creatinine Ratio 29.8 H, Glucose 94, Calcium 9.1, Total Bilirubin 0.90, AST 18, ALT 30, Alkaline Phosphatase 73, Total Protein 7.1, Albumin 3.0 L, Globulin 4.1, Albumin/Globulin Ratio 0.7 L Micro: Microbiology 07/19/21 01:15 Sputum, Expectorated/Coughed Gram Stain - Final 07/19/21 01:15 Sputum, Expectorated/Coughed Respiratory Culture - Final 07/18/21 19:25 Blood Culture (Wb) - Anticubital Left Blood Culture - Preliminary No growth in 48 hours. 07/18/21 18:55 Blood Culture (Wb) - Anticubital Left Blood Culture - Preliminary No growth in 48 hours. 07/19/21 00:00 Mucosa - Nose Respiratory Panel (PCR) - Final 07/18/21 19:40 Nasal Secretion SARS-CoV-2 Antigen (Rapid) - Final SARS-CoV-2 (COVID 19) Physical Exam Const alert and no apparent distress General Appearance: cooperative HEENT normocephalic, head/scalp atraumatic and moist oral mucous membranes Eyes PERRL, EOMs intact bilaterally and conjunctivae normal Neck supple General: trachea midline Chest inspection of chest normal Chest: symmetrical chest wall rise; Negative for crepitus Resp normal respiratory effort and no use of accessory muscles Auscultation: rales bilateral base; Negative for rhonchi or wheezes Cardio regular rate and regular rhythm GI normal to inspection, nondistended, normoactive bowel sounds Extremity no clubbing, cyanosis or edema Skin no rashes or lesions noted Neuro CN's II-XII intact bilaterally, moves all extremities and no focal motor deficits Psych cooperative and affect normal Charges/Coding Visit Charges Inpatient E&M: 35989 Subs Hosp L3
--- NOTE | 2021-07-22 17:24 | PN.HOSP_ITS ---
Subjective Subjective Breathing well w oxygen. Not on oxygen at home. Objective Data Objective Data Vital Signs: Vital Signs Temp Pulse Resp BP Pulse Ox 36.9 C 88 18 113/72 91 07/22/21 15:15 07/22/21 15:15 07/22/21 15:15 07/22/21 15:15 07/22/21 17:12 Oxygen Flow Rate (L/min) [ 87 AMBULATING with Oxygen #1] Oxygen Flow Rate (L/min) 6 Oxygen Delivery Method Nasal Cannula Weight: 85.5 kg Body Mass Index (BMI) 26.4 Intake & Output: Intake and Output for Last 24 Hours 07/20/21 07/21/21 07/22/21 23:59 23:59 23:59 Intake Total 370 / 490 1450 / 1450 1450 / 1450 Output Total 100 / 100 300 / 300 850 / 850 Balance 270 / 390 1150 / 1150 600 / 600 Medical Nutrition Assessment Dietitian: Malnutrition Criteria Met Start: 07/19/21 15:14 Freq: Status: Active Protocol: Document 07/19/21 15:14 RMA (Rec: 07/19/21 15:15 RMA [id number]) Nutrition Malnutrition Evidence of Malnutrition Exists Yes Malnutrition (severe): Acute Illness/Injury Evidenced By Suboptimal Energy Intake ( Severe),Weight Loss (Severe) Clinical Problem Acute Disease or Injury Related Malnutrition Etiology Severe protein-calorie malnutrition in the context of acute illness related to ongoing poor appetite due to infection Signs/Symptoms as evidenced by 4-5% wt loss x past 1-2 weeks and oral intake meeting less than 50% estimated nutrition needs x past 1-2 weeks. Status Active Problem Recommendation Dietitian Recommendations/Changes Continue Cardiac diet as ordered. Will add 240ml Ensure Enlive BID w/ meals for additional 700 calorie and 40gm protein if consumed. Adjust ONS and diet as needed to optimize intake at meals. Lab / Micro Data Result Diagrams: 07/22/21 07:20 07/22/21 07:20 Labs: Laboratory Results - last 24 hr 07/22/21 07:20: WBC 17.5 H, RBC 5.56, Hgb 15.9, Hct 50.6, MCV 91.0, MCH 28.6, MCHC 31.4 L, RDW Std Deviation 45.1 H, RDW Coeff of Opal 13.3, Plt Count 367, MPV 9.6, Immature Gran % (Auto) 0.800, Neut % (Auto) 90.6 H, Lymph % (Auto) 3.0 L, [place] % (Auto) 5.4, Eos % (Auto) 0.0, Baso % (Auto) 0.2, Absolute Neuts (auto) 15.9 H, Absolute Lymphs (auto) 0.52 L, Nucleated RBC % 0, Differential Comment COMMENT 07/22/21 07:20: Sodium 141, Potassium 3.8, Chloride 106, Carbon Dioxide 30.0, Anion Gap 5, BUN 25 H, Creatinine 0.84, Estim Creat Clear Calc 86.90, Est GFR (MDRD) Af Amer 117, Est GFR (MDRD) Non-Af 97, BUN/Creatinine Ratio 29.8 H, Glucose 94, Calcium 9.1, Total Bilirubin 0.90, AST 18, ALT 30, Alkaline Phosphatase 73, Total Protein 7.1, Albumin 3.0 L, Globulin 4.1, Albumin/Globulin Ratio 0.7 L Micro: Microbiology 07/19/21 01:15 Sputum, Expectorated/Coughed Gram Stain - Final 07/19/21 01:15 Sputum, Expectorated/Coughed Respiratory Culture - Final 07/18/21 19:25 Blood Culture (Wb) - Anticubital Left Blood Culture - Preliminary No growth in 48 hours. 07/18/21 18:55 Blood Culture (Wb) - Anticubital Left Blood Culture - Preliminary No growth in 48 hours. 07/19/21 00:00 Mucosa - Nose Respiratory Panel (PCR) - Final 07/18/21 19:40 Nasal Secretion SARS-CoV-2 Antigen (Rapid) - Final SARS-CoV-2 (COVID 19) Physical Exam Resp Resp Narrative: diffuse crackles Cardio regular rate, regular rhythm, S1 normal heart sound and S2 normal heart sound GI normal to inspection, nondistended, normoactive bowel sounds, soft to palpation, non-tender and non-distended Psych Psych Narrative: flat affect Assessment & Plan Assessment/Plan (1) Pneumonia due to COVID-19 virus: (2) Acute respiratory failure with hypoxia: PLAN: 1. acute COVID 19 pneumonia onset 07/16 on dex and rem-d 20-day quarantine vaccinated 2. ILD Cellcept and pred on hold given dexa, resume when completed complicate overall care and recovery 3. acute hypoxic respiratory failure /2 above wean oxygen as able 4. VTE prophylaxis: LMWH Charges/Coding Visit Charges Inpatient E&M: 77501 Subs Hosp L2
[2021-07-22] MEDS: Atorvastatin Calcium 10 MG Tablet 5 MG PO (21:26)
[2021-07-23] VITALS (8 sets, daily range): BP systolic 107–132; BP diastolic 55–79; PULSE 72–98; RESP 18; TEMP 36.4–37.1; O2SAT 92–95
[2021-07-23 06:19] LABS: Absolute Lymphocyte Count 0.53 X10^3/uL (0.83-4.51); Absolute Neutrophil Count 16.6 X10^3/uL (2.0-7.7); Basophil# 0.04 X10^3/uL; Basophil% 0.2 % (0-1); Eosinophil# 0.01 X10^3/uL; Eosinophils% 0.1 % (0-5); Hematocrit 52.1 % (40-54); Hemoglobin 16.3 g/dL (13.0-16.5); Lymphocyte # 0.53 X10^3/ul (0.83-4.51); Lymphocyte % 2.9 % (19-41); Mean Corp Hgb Conc 31.3 g/dL (32-36); Mean Corpuscular Hgb 28.5 pg (27.0-32.0); Mean Corpuscular Volume 91.2 fL (80-94); Mean Platelet Vol. 9.9 fl (6.2-12.0); Monocyte# 0.98 X10^3/uL; Monocyte% 5.4 % (0-10); NRBC Flagged by Analyzer 0 % (0-5); Neutrophil # 16.57 X10^3/uL (2.7-7.7); Neutrophil % 90.7 % (47-70); POSITIVE DIFFERENTIAL YES; Platelet Count 374 K/mm3 (150-450); RBC Distribution Width CV 13.2 % (11.6-14.6); RBC Distribution Width SD 44.5 fl (35.1-43.9); Red Blood Count 5.71 M/mm3 (4.6-6.2); White Blood Count 18.3 K/mm3 (4.4-11.0)
[2021-07-23 06:24] LABS: Differential Indicated SCAN CRITERIA MET
[2021-07-23 06:43] LABS: ALB/GLOB Ratio 0.7 RATIO (0.9-2.4); AST(SGOT) 16 U/L (15-37); Alanine Aminotransfer ALT/SGPT 30 U/L (16-61); Albumin, Serum 2.9 g/dL (3.2-5.0); Alkaline Phosphatase 74 U/L (45-117); Anion Gap 8 (5-15); BUN 23 mg/dL (7-18); BUN/Creat Ratio 26.3 RATIO (10-20); Calcium,Total 8.9 mg/dL (8.5-10.1); Chloride 108 mmol/L (98-107); Creatinine, Serum 0.88 mg/dL (0.70-1.30); EST Glomerular Filtration Rate 92 mL/min (>60); Est Glom Filt Rate - Afr Amer 111 mL/min (>60); Estimated Creatinine Clearance 82.95 ml/min; Globulin 4.2 g/dL (2.2-4.2); Glucose 104 mg/dL (74-106); Potassium 4.1 mmol/L (3.5-5.1); Protein, Total 7.1 g/dL (6.4-8.2); Sodium Level 143 mmol/L (136-145)
[2021-07-23 06:53] LABS: Differential Comment SCANNED
[2021-07-23] MEDS: Cholecalciferol (VIT D3) 25 MCG TABLET (1,000 UNITS) 150 MCG PO (09:20)
[2021-07-23] MEDS: Aspirin E.C. 81 MG Tablet PO (09:20)
[2021-07-23] MEDS: Pantoprazole Sodium 40 MG Tablet PO (09:20)
[2021-07-23] MEDS: NYSTATIN 500,000 UNIT/5 ML UDC 500000 UNIT PO ×4 (09:20→21:48)
[2021-07-23] MEDS: Cyanocobalamin 500 MCG Tablet PO (09:21)
[2021-07-23] MEDS: dexAMETHasone 10 MG/ML Vial 6 MG IV (09:21)
[2021-07-23] MEDS: Enoxaparin 30 MG/0.3 ML Syringe SC ×2 (09:22→21:47)
--- NOTE | 2021-07-23 12:25 | PCM.PN.INT ---
Assessment & Plan Assessment/Plan (1) Pneumonia due to COVID-19 virus: PLAN: RECOMMENDATIONS: 1. Continue to wean supplemental oxygen to maintain saturations at or above 90%. 2. Continue remdesivir to complete treatment course. Continue to monitor liver and renal function. 3. Continue Decadron to complete 10-day treatment course. 4. Encourage incentive spirometer use and mobilize patient as tolerated. 5. Resume CellCept once Decadron course is completed. 6. Perform walking oximetry study prior to consideration for discharge home. 7. The patient should follow-up with his primary principal ios developer after discharge from the hospital. 8. Transition from Robitussin to Mucinex scheduled IMPRESSIONS: 1. 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 He recently traveled to [place] and subsequently contracted COVID-19. The patient will be continued on supplemental oxygen to maintain saturations at or above 90%. Agree with holding CellCept for now. Continue Decadron. Completed remdesivir. Continue to monitor renal function accordingly. Continue Lovenox therapy as ordered. The patient can likely resume his outpatient CellCept regimen once he has completed his treatment course of Decadron. He should follow-up with his primary pulmonary provider as well following discharge from the hospital. Recovery complicated by poor motivation from the patient. Will transition to Mucinex scheduled to help with mucus plugging, but highly variable oxygen requirements are suggestive of mucous plugging. 2. 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 These medications can be resumed once the patient has completed his treatment course of Decadron. 3. History of paroxysmal atrial fibrillation/hypertension/hyperlipidemia Complicates care, management, recovery and prognosis. Continue home medications as indicated. This note was generated with [employer] dictation software. It may contain incorrect words, spelling, and punctuation that were not noted in checking the note before signing. Subjective Subjective Patient doing okay overall. No subjective change compared to previous. Patient continues to report a productive cough. Patient states he has used his incentive spirometer and been out of bed today. Patient states hemoptysis has resolved. Objective Data Objective Data Vital Signs: Vital Signs Temp Pulse Resp BP Pulse Ox 36.4 C L 80 18 112/55 L 92 07/23/21 09:16 07/23/21 09:16 07/23/21 09:16 07/23/21 09:16 07/23/21 09:16 Oxygen Flow Rate (L/min) [ 87 AMBULATING with Oxygen #1] Oxygen Flow Rate (L/min) 10 Oxygen Delivery Method Nasal Cannula Weight: 85.2 kg Body Mass Index (BMI) 26.4 Intake & Output: Intake and Output for Last 24 Hours 07/21/21 07/22/21 07/23/21 23:59 23:59 23:59 Intake Total 1450 / 1450 1700 / 1820 220 / 220 Output Total 300 / 300 850 / 1050 200 / 200 Balance 1150 / 1150 850 / 770 Medical Nutrition Assessment Dietitian: Malnutrition Criteria Met Start: 07/19/21 15:14 Freq: Status: Active Protocol: Document 07/19/21 15:14 RMA (Rec: 07/19/21 15:15 RMA [id number]) Nutrition Malnutrition Evidence of Malnutrition Exists Yes Malnutrition (severe): Acute Illness/Injury Evidenced By Suboptimal Energy Intake ( Severe),Weight Loss (Severe) Clinical Problem Acute Disease or Injury Related Malnutrition Etiology Severe protein-calorie malnutrition in the context of acute illness related to ongoing poor appetite due to infection Signs/Symptoms as evidenced by 4-5% wt loss x past 1-2 weeks and oral intake meeting less than 50% estimated nutrition needs x past 1-2 weeks. Status Active Problem Recommendation Dietitian Recommendations/Changes Continue Cardiac diet as ordered. Will add 240ml Ensure Enlive BID w/ meals for additional 700 calorie and 40gm protein if consumed. Adjust ONS and diet as needed to optimize intake at meals. Lab / Micro Data Result Diagrams: 07/23/21 05:54 07/23/21 05:54 Labs: Laboratory Results - last 24 hr 07/23/21 05:54: WBC 18.3 H, RBC 5.71, Hgb 16.3, Hct 52.1, MCV 91.2, MCH 28.5, MCHC 31.3 L, RDW Std Deviation 44.5 H, RDW Coeff of Opal 13.2, Plt Count 374, MPV 9.9, Immature Gran % (Auto) 0.700, Neut % (Auto) 90.7 H, Lymph % (Auto) 2.9 L, [place] % (Auto) 5.4, Eos % (Auto) 0.1, Baso % (Auto) 0.2, Absolute Neuts (auto) 16.6 H, Absolute Lymphs (auto) 0.53 L, Nucleated RBC % 0, Differential Comment SCANNED 07/23/21 05:54: Sodium 143, Potassium 4.1, Chloride 108 H, Carbon Dioxide 27.0, Anion Gap 8, BUN 23 H, Creatinine 0.88, Estim Creat Clear Calc 82.95, Est GFR (MDRD) Af Amer 111, Est GFR (MDRD) Non-Af 92, BUN/Creatinine Ratio 26.3 H, Glucose 104, Calcium 8.9, Total Bilirubin 1.00, AST 16, ALT 30, Alkaline Phosphatase 74, Total Protein 7.1, Albumin 2.9 L, Globulin 4.2, Albumin/Globulin Ratio 0.7 L Micro: Microbiology 07/19/21 01:15 Sputum, Expectorated/Coughed Gram Stain - Final 07/19/21 01:15 Sputum, Expectorated/Coughed Respiratory Culture - Final 07/18/21 19:25 Blood Culture (Wb) - Anticubital Left Blood Culture - Preliminary No growth in 48 hours. 07/18/21 18:55 Blood Culture (Wb) - Anticubital Left Blood Culture - Preliminary No growth in 48 hours. 07/19/21 00:00 Mucosa - Nose Respiratory Panel (PCR) - Final 07/18/21 19:40 Nasal Secretion SARS-CoV-2 Antigen (Rapid) - Final SARS-CoV-2 (COVID 19) Physical Exam Const alert and no apparent distress General Appearance: cooperative HEENT normocephalic, head/scalp atraumatic and moist oral mucous membranes Eyes PERRL, EOMs intact bilaterally and conjunctivae normal Neck supple General: trachea midline Chest inspection of chest normal Chest: symmetrical chest wall rise; Negative for crepitus Resp no use of accessory muscles Resp Narrative: Fair effort. Effort and Inspection: decreased respiratory effort; Negative for respiratory distress Auscultation: diminished lung sounds; Negative for rales, rhonchi or wheezes Cardio regular rate and regular rhythm GI normal to inspection, nondistended, normoactive bowel sounds Extremity no clubbing, cyanosis or edema Skin no rashes or lesions noted Neuro CN's II-XII intact bilaterally, moves all extremities and no focal motor deficits Psych cooperative and affect normal Charges/Coding Visit Charges Inpatient E&M: 64065 Subs Hosp L3
[2021-07-23] MEDS: guaiFENesin 1,200 MG Tablet 1200 MG PO ×2 (13:35→21:46)
--- NOTE | 2021-07-23 16:26 | PN.HOSP_ITS ---
Subjective Subjective Denies new complaints. Asks if there is anything else that can be done. Objective Data Objective Data Vital Signs: Vital Signs Temp Pulse Resp BP Pulse Ox 36.8 C 98 18 112/69 95 07/23/21 15:20 07/23/21 15:20 07/23/21 15:20 07/23/21 15:20 07/23/21 15:20 Oxygen Flow Rate (L/min) [ 87 AMBULATING with Oxygen #1] Oxygen Flow Rate (L/min) 8 Oxygen Delivery Method Nasal Cannula Weight: 85.2 kg Body Mass Index (BMI) 26.4 Intake & Output: Intake and Output for Last 24 Hours 07/21/21 07/22/21 07/23/21 23:59 23:59 23:59 Intake Total 1450 / 1450 1700 / 1820 460 / 460 Output Total 300 / 300 850 / 1050 200 / 200 Balance 1150 / 1150 850 / 770 260 / 260 Medical Nutrition Assessment Dietitian: Malnutrition Criteria Met Start: 07/19/21 15:14 Freq: Status: Active Protocol: Document 07/19/21 15:14 RMA (Rec: 07/19/21 15:15 RMA [id number]) Nutrition Malnutrition Evidence of Malnutrition Exists Yes Malnutrition (severe): Acute Illness/Injury Evidenced By Suboptimal Energy Intake ( Severe),Weight Loss (Severe) Clinical Problem Acute Disease or Injury Related Malnutrition Etiology Severe protein-calorie malnutrition in the context of acute illness related to ongoing poor appetite due to infection Signs/Symptoms as evidenced by 4-5% wt loss x past 1-2 weeks and oral intake meeting less than 50% estimated nutrition needs x past 1-2 weeks. Status Active Problem Recommendation Dietitian Recommendations/Changes Continue Cardiac diet as ordered. Will add 240ml Ensure Enlive BID w/ meals for additional 700 calorie and 40gm protein if consumed. Adjust ONS and diet as needed to optimize intake at meals. Lab / Micro Data Result Diagrams: 07/23/21 05:54 07/23/21 05:54 Labs: Laboratory Results - last 24 hr 07/23/21 05:54: WBC 18.3 H, RBC 5.71, Hgb 16.3, Hct 52.1, MCV 91.2, MCH 28.5, MCHC 31.3 L, RDW Std Deviation 44.5 H, RDW Coeff of Opal 13.2, Plt Count 374, MPV 9.9, Immature Gran % (Auto) 0.700, Neut % (Auto) 90.7 H, Lymph % (Auto) 2.9 L, [place] % (Auto) 5.4, Eos % (Auto) 0.1, Baso % (Auto) 0.2, Absolute Neuts (auto) 16.6 H, Absolute Lymphs (auto) 0.53 L, Nucleated RBC % 0, Differential Comment SCANNED 07/23/21 05:54: Sodium 143, Potassium 4.1, Chloride 108 H, Carbon Dioxide 27.0, Anion Gap 8, BUN 23 H, Creatinine 0.88, Estim Creat Clear Calc 82.95, Est GFR (MDRD) Af Amer 111, Est GFR (MDRD) Non-Af 92, BUN/Creatinine Ratio 26.3 H, Glucose 104, Calcium 8.9, Total Bilirubin 1.00, AST 16, ALT 30, Alkaline Phosphatase 74, Total Protein 7.1, Albumin 2.9 L, Globulin 4.2, Albumin/Globulin Ratio 0.7 L Micro: Microbiology 07/19/21 01:15 Sputum, Expectorated/Coughed Gram Stain - Final 07/19/21 01:15 Sputum, Expectorated/Coughed Respiratory Culture - Final 07/18/21 19:25 Blood Culture (Wb) - Anticubital Left Blood Culture - Preliminary No growth in 48 hours. 07/18/21 18:55 Blood Culture (Wb) - Anticubital Left Blood Culture - Preliminary No growth in 48 hours. 07/19/21 00:00 Mucosa - Nose Respiratory Panel (PCR) - Final 07/18/21 19:40 Nasal Secretion SARS-CoV-2 Antigen (Rapid) - Final SARS-CoV-2 (COVID 19) Physical Exam Narrative Flat affect. Comfortable in his bed. Wearing jeans and legs are crossed. No respiratory distress. No conversational dyspnea. Resp Resp Narrative: Coarse breath sounds bilaterally Cardio regular rate, regular rhythm, S1 normal heart sound and S2 normal heart sound GI normal to inspection, nondistended, normoactive bowel sounds, soft to palpation, non-tender and non-distended Extremity normal to inspection Assessment & Plan Assessment/Plan (1) Pneumonia due to COVID-19 virus: (2) Acute respiratory failure with hypoxia: PLAN: 1. acute COVID 19 pneumonia onset 8/25 on dex Completed remdesivir 20-day quarantine vaccinated 2. ILD Cellcept and pred on hold given dexa, resume when completed complicate overall care and recovery 3. acute hypoxic respiratory failure 2/2 Covid and ILD wean oxygen as able 4. VTE prophylaxis: LMWH Patient had informed his that he was dying. To call the floor and then present to the waiting room. She was obviously very distressed and I want to s ee the patient. Foreign that she could not do so because have him having Covid. She states that he is not returning phone calls from her cell for other family members nor is he returning text. I reassured him that though he is still said he is not actively dying, at least at this point. I informed her that we will certainly let her know if he had any deterioration in his status. In the meanti me, continue with the ongoing treatment. Greater than 35% of the time was counseling the patient's as well as discussing with the patient about his COVID-19. Charges/Coding Visit Charges Inpatient E&M: 00031 Subs Hosp L3
[2021-07-23] MEDS: Loperamide 2 MG Capsule PO ×2 (17:24→21:47)
[2021-07-23] MEDS: Furosemide 40 MG/4 ML Vial IV (17:24)
[2021-07-23] MEDS: Atorvastatin Calcium 10 MG Tablet 5 MG PO (21:46)
[2021-07-24] VITALS (9 sets, daily range): BP systolic 107–120; BP diastolic 61–88; PULSE 76–111; RESP 18–19; TEMP 36.2–36.6; O2SAT 92–97
[2021-07-24 07:49] LABS: Absolute Lymphocyte Count 0.52 X10^3/uL (0.83-4.51); Absolute Neutrophil Count 15.9 X10^3/uL (2.0-7.7); Basophil# 0.04 X10^3/uL; Basophil% 0.2 % (0-1); Eosinophil# 0.03 X10^3/uL; Eosinophils% 0.2 % (0-5); Hematocrit 53.2 % (40-54); Lymphocyte # 0.52 X10^3/ul (0.83-4.51); Lymphocyte % 2.9 % (19-41); Mean Corpuscular Hgb 28.9 pg (27.0-32.0); Mean Corpuscular Volume 90.3 fL (80-94); Mean Platelet Vol. 10.2 fl (6.2-12.0); Monocyte# 1.13 X10^3/uL; Monocyte% 6.4 % (0-10); NRBC Flagged by Analyzer 0.1 % (0-5); Neutrophil % 89.3 % (47-70); POSITIVE DIFFERENTIAL YES; Platelet Count 390 K/mm3 (150-450); RBC Distribution Width CV 13.2 % (11.6-14.6); RBC Distribution Width SD 44.1 fl (35.1-43.9); Red Blood Count 5.89 M/mm3 (4.6-6.2); White Blood Count 17.8 K/mm3 (4.4-11.0)
[2021-07-24 07:53] LABS: Differential Indicated SCAN CRITERIA MET
[2021-07-24 08:13] LABS: ALB/GLOB Ratio 0.6 RATIO (0.9-2.4); AST(SGOT) 15 U/L (15-37); Alanine Aminotransfer ALT/SGPT 28 U/L (16-61); Albumin, Serum 2.9 g/dL (3.2-5.0); Alkaline Phosphatase 72 U/L (45-117); Anion Gap 6 (5-15); BUN 31 mg/dL (7-18); BUN/Creat Ratio 32.2 RATIO (10-20); Calcium,Total 9.4 mg/dL (8.5-10.1); Chloride 104 mmol/L (98-107); Creatinine, Serum 0.96 mg/dL (0.70-1.30); EST Glomerular Filtration Rate 82 mL/min (>60); Est Glom Filt Rate - Afr Amer 100 mL/min (>60); Estimated Creatinine Clearance 76.04 ml/min; Globulin 4.7 g/dL (2.2-4.2); Glucose 111 mg/dL (74-106); Potassium 3.9 mmol/L (3.5-5.1); Protein, Total 7.6 g/dL (6.4-8.2); Sodium Level 140 mmol/L (136-145)
[2021-07-24] MEDS: Aspirin E.C. 81 MG Tablet PO (09:35)
[2021-07-24] MEDS: Cyanocobalamin 500 MCG Tablet PO (09:35)
[2021-07-24] MEDS: NYSTATIN 500,000 UNIT/5 ML UDC 500000 UNIT PO ×4 (09:35→22:44)
[2021-07-24] MEDS: guaiFENesin 1,200 MG Tablet 1200 MG PO ×2 (09:35→22:45)
[2021-07-24] MEDS: Enoxaparin 30 MG/0.3 ML Syringe SC ×2 (09:35→22:45)
[2021-07-24] MEDS: Cholecalciferol (VIT D3) 25 MCG TABLET (1,000 UNITS) 150 MCG PO (09:35)
[2021-07-24] MEDS: Pantoprazole Sodium 40 MG Tablet PO (09:35)
[2021-07-24] MEDS: dexAMETHasone 10 MG/ML Vial 6 MG IV (09:35)
--- NOTE | 2021-07-24 14:22 | PN.CC_ITS ---
Assessment & Plan Assessment/Plan (1) Pneumonia due to COVID-19 virus: PLAN: RECOMMENDATIONS: 1. Continue to wean supplemental oxygen to maintain saturations at or above 90%. 2. Completed remdesivir. Likely not necessary to check LFTs daily 3. Continue Decadron to complete 10-day treatment course. 4. Encourage incentive spirometer use and mobilize patient as tolerated. 5. Resume CellCept once Decadron course is completed. 6. Perform walking oximetry study prior to consideration for discharge home. 7. 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 8. Consider allowing family to visit to improve patient participation IMPRESSIONS: 1. 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 He recently traveled to [place] and subsequently contracted COVID- 19. The patient will be continued on supplemental oxygen to maintain saturations at or above 90%. Agree with holding CellCept for now. Continue Decadron. Completed remdesivir. Continue to monitor renal function accordingly. Continue Lovenox therapy as ordered. The patient can likely resume his outpatient CellCept regimen once he has completed his treatment course of Decadron. He should follow-up with his primary pulmonary provider as well following discharge from the hospital. Recovery complicated by poor motivation from the patient. Patient is likely at the convalescent stage of COVID-19, but is not participating with pulmonary toileting. If continues to have decreased motivation tomorrow, may initiate vest therapy. 2. 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 These medications can be resumed once the patient has completed his treatment course of Decadron. 3. History of paroxysmal atrial fibrillation/hypertension/hyperlipidemia Complicates care, management, recovery and prognosis. Continue home medications as indicated. This note was generated with [employer] dictation software. It may contain incorrect words, spelling, and punctuation that were not noted in checking the note before signing. Subjective Subjective Patient did okay overnight. Patient still requiring 10 L nasal cannula to maintain saturations. Patient states he has not used his incentive spirometer and has not been out of bed today. Patient does report a cough that is intermittently productive. No hemoptysis has been reported. Objective Data Objective Data Vital Signs: Vital Signs Temp Pulse Resp BP Pulse Ox 36.2 C L 81 18 111/76 92 07/24/21 09:33 07/24/21 09:33 07/24/21 09:33 07/24/21 09:33 07/24/21 09:33 Oxygen Flow Rate (L/min) [ 87 AMBULATING with Oxygen #1] Oxygen Flow Rate (L/min) 10 Oxygen Delivery Method Nasal Cannula Weight: 84.8 kg Body Mass Index (BMI) 26.4 Intake & Output: Intake and Output for Last 24 Hours 07/22/21 07/23/21 07/24/21 23:59 23:59 23:59 Intake Total 1700 / 1820 920 / 920 440 / 440 Output Total 850 / 1050 1800 / 1800 675 / 675 Balance 850 / 770 -880 / -880 -235 / -235 Medical Nutrition Assessment Dietitian: Malnutrition Criteria Met Start: 07/19/21 15:14 Freq: Status: Active Protocol: Document 07/19/21 15:14 RMA (Rec: 07/19/21 15:15 RMA [id number]) Nutrition Malnutrition Evidence of Malnutrition Exists Yes Malnutrition (severe): Acute Illness/Injury Evidenced By Suboptimal Energy Intake ( Severe),Weight Loss (Severe) Clinical Problem Acute Disease or Injury Related Malnutrition Etiology Severe protein-calorie malnutrition in the context of acute illness related to ongoing poor appetite due to infection Signs/Symptoms as evidenced by 4-5% wt loss x past 1-2 weeks and oral intake meeting less than 50% estimated nutrition needs x past 1-2 weeks. Status Active Problem Recommendation Dietitian Recommendations/Changes Continue Cardiac diet as ordered. Will add 240ml Ensure Enlive BID w/ meals for additional 700 calorie and 40gm protein if consumed. Adjust ONS and diet as needed to optimize intake at meals. Lab / Micro Data Result Diagrams: 07/24/21 07:30 07/24/21 07:30 Labs: Laboratory Results - last 24 hr 07/24/21 07:30: WBC 17.8 H, RBC 5.89, Hgb 17.0 H, Hct 53.2, MCV 90.3, MCH 28.9, MCHC 32.0, RDW Std Deviation 44.1 H, RDW Coeff of Opal 13.2, Plt Count 390, MPV 10.2, Immature Gran % (Auto) 1.000 H, Neut % (Auto) 89.3 H, Lymph % (Auto) 2.9 L , [place] % (Auto) 6.4, Eos % (Auto) 0.2, Baso % (Auto) 0.2, Absolute Neuts (auto) 15.9 H, Absolute Lymphs (auto) 0.52 L, Nucleated RBC % 0.1 07/24/21 07:30: Sodium 140, Potassium 3.9, Chloride 104, Carbon Dioxide 30.0, Anion Gap 6, BUN 31 H, Creatinine 0.96, Estim Creat Clear Calc 76.04, Est GFR (MDRD) Af Amer 100, Est GFR (MDRD) Non-Af 82, BUN/Creatinine Ratio 32.2 H, Glucose 111 H, Calcium 9.4, Total Bilirubin 1.00, AST 15, ALT 28, Alkaline Phosphatase 72, Total Protein 7.6, Albumin 2.9 L, Globulin 4.7 H, Albumin/[place] bulin Ratio 0.6 L Micro: Microbiology 07/18/21 19:25 Blood Culture (Wb) - Anticubital Left Blood Culture - Final No growth in 5 days. 07/18/21 18:55 Blood Culture (Wb) - Anticubital Left Blood Culture - Final No growth in 5 days. 07/19/21 01:15 Sputum, Expectorated/Coughed Gram Stain - Final 07/19/21 01:15 Sputum, Expectorated/Coughed Respiratory Culture - Final 07/19/21 00:00 Mucosa - Nose Respiratory Panel (PCR) - Final 07/18/21 19:40 Nasal Secretion SARS-CoV-2 Antigen (Rapid) - Final SARS-CoV-2 (COVID 19) Physical Exam Const alert and no apparent distress General Appearance: cooperative HEENT normocephalic, head/scalp atraumatic and moist oral mucous membranes Eyes PERRL, EOMs intact bilaterally and conjunctivae normal Neck supple General: trachea midline Chest inspection of chest normal Chest: symmetrical chest wall rise; Negative for crepitus Resp no use of accessory muscles Resp Narrative: Fair effort. Effort and Inspection: decreased respiratory effort; Negative for respiratory distress Auscultation: diminished lung sounds; Negative for rales, rhonchi or wheezes Cardio regular rate and regular rhythm GI normal to inspection, nondistended, normoactive bowel sounds Extremity no clubbing, cyanosis or edema Skin no rashes or lesions noted Neuro CN's II-XII intact bilaterally, moves all extremities and no focal motor deficits Psych cooperative Mood & Affect: flat affect Charges/Coding Visit Charges Inpatient E&M: 40818 Subs Hosp L3
--- NOTE | 2021-07-24 15:44 | PN.HOSP_ITS ---
Subjective Subjective Feels better despite being on 9 to 10 L of oxygen. Objective Data Objective Data Vital Signs: Vital Signs Temp Pulse Resp BP Pulse Ox 36.6 C 89 18 107/72 94 07/24/21 14:37 07/24/21 14:37 07/24/21 14:37 07/24/21 14:37 07/24/21 14:37 Oxygen Flow Rate (L/min) [ 87 AMBULATING with Oxygen #1] Oxygen Flow Rate (L/min) 10 Oxygen Delivery Method Nasal Cannula Weight: 84.8 kg Body Mass Index (BMI) 26.4 Intake & Output: Intake and Output for Last 24 Hours 07/22/21 07/23/21 07/24/21 23:59 23:59 23:59 Intake Total 1700 / 1820 920 / 920 440 / 440 Output Total 850 / 1050 1800 / 1800 675 / 675 Balance 850 / 770 -880 / -880 -235 / -235 Medical Nutrition Assessment Dietitian: Malnutrition Criteria Met Start: 07/19/21 15:14 Freq: Status: Active Protocol: Document 07/24/21 14:34 AG (Rec: 07/24/21 14:35 AG [id number]) Nutrition Malnutrition Evidence of Malnutrition Exists Yes Malnutrition (severe): Acute Illness/Injury Evidenced By Suboptimal Energy Intake ( Severe),Weight Loss (Severe) Clinical Problem Acute Disease or Injury Related Malnutrition Etiology Severe protein-calorie malnutrition in the context of acute illness related to inadequate energy intake w/ ongoing poor appetite Signs/Symptoms as evidenced by 7% wt loss x past 2 weeks, estimated oral intake meeting less than 50% estimated nutrition needs x past 1-2 weeks. Status Active Problem Recommendation Dietitian Recommendations/Changes Continue regular diet, ensure w/ meals, and ensure pudding/ magic cup w/ meals. Lab / Micro Data Result Diagrams: 07/24/21 07:30 07/24/21 07:30 Labs: Laboratory Results - last 24 hr 07/24/21 07:30: WBC 17.8 H, RBC 5.89, Hgb 17.0 H, Hct 53.2, MCV 90.3, MCH 28.9, MCHC 32.0, RDW Std Deviation 44.1 H, RDW Coeff of Opal 13.2, Plt Count 390, MPV 10.2, Immature Gran % (Auto) 1.000 H, Neut % (Auto) 89.3 H, Lymph % (Auto) 2.9 L , [place] % (Auto) 6.4, Eos % (Auto) 0.2, Baso % (Auto) 0.2, Absolute Neuts (auto) 15.9 H, Absolute Lymphs (auto) 0.52 L, Nucleated RBC % 0.1 07/24/21 07:30: Sodium 140, Potassium 3.9, Chloride 104, Carbon Dioxide 30.0, Anion Gap 6, BUN 31 H, Creatinine 0.96, Estim Creat Clear Calc 76.04, Est GFR (M DRD) Af Amer 100, Est GFR (MDRD) Non-Af 82, BUN/Creatinine Ratio 32.2 H, Glucose 111 H, Calcium 9.4, Total Bilirubin 1.00, AST 15, ALT 28, Alkaline Phosphatase 72, Total Protein 7.6, Albumin 2.9 L, Globulin 4.7 H, Albumin/Globulin Ratio 0.6 L Micro: Microbiology 07/18/21 19:25 Blood Culture (Wb) - Anticubital Left Blood Culture - Final No growth in 5 days. 07/18/21 18:55 Blood Culture (Wb) - Anticubital Left Blood Culture - Final No growth in 5 days. 07/19/21 01:15 Sputum, Expectorated/Coughed Gram Stain - Final 07/19/21 01:15 Sputum, Expectorated/Coughed Respiratory Culture - Final 07/19/21 00:00 Mucosa - Nose Respiratory Panel (PCR) - Final 07/18/21 19:40 Nasal Secretion SARS-CoV-2 Antigen (Rapid) - Final SARS-CoV-2 (COVID 19) Physical Exam Const alert Resp normal respiratory effort Resp Narrative: Few scattered crackles bilaterally Cardio regular rate, regular rhythm, S1 normal heart sound and S2 normal heart sound GI normal to inspection, nondistended, normoactive bowel sounds, soft to palpation, non-tender and non-distended Assessment & Plan Assessment/Plan (1) Pneumonia due to COVID-19 virus: (2) Acute respiratory failure with hypoxia: PLAN: 1. acute COVID 19 pneumonia onset 07/16 on dex Completed remdesivir 20-day quarantine vaccinated 2. ILD mycophenolate and pred on hold given dexa, resume when completed complicate overall care and recovery 3. acute hypoxic respiratory failure 2/2 Covid and ILD wean oxygen as able Schedule furosemide 4. VTE prophylaxis: LMWH 07/23: Patient had informed his that he was dying. To call the floor and then present to the waiting room. She was obviously very distressed and I want to see the patient. Foreign that she could not do so because have him having Covid. She states that he is not returning phone calls from her cell for other family members nor is he returning text. I reassured him that though he is still said he is not actively dying, at least at this point. I informed her that we will certainly let her know if he had any deterioration in his status. In the meantime, continue with the ongoing treatment. Charges/Coding Visit Charges Inpatient E&M: 45407 Subs Hosp L2
[2021-07-24] MEDS: Furosemide 40 MG/4 ML Vial IV (18:38)
[2021-07-24] MEDS: 0.9% Saline Lock 10 ML Syringe IV (18:38)
[2021-07-24] MEDS: Atorvastatin Calcium 10 MG Tablet 5 MG PO (22:44)
[2021-07-25] VITALS (14 sets, daily range): BP systolic 104–120; BP diastolic 70–97; PULSE 81–99; RESP 16–20; TEMP 36.1–36.7; O2SAT 92–98
[2021-07-25 06:16] LABS: Absolute Lymphocyte Count 0.64 X10^3/uL (0.83-4.51); Absolute Neutrophil Count 14.9 X10^3/uL (2.0-7.7); Basophil# 0.03 X10^3/uL; Basophil% 0.2 % (0-1); Eosinophil# 0.04 X10^3/uL; Eosinophils% 0.2 % (0-5); Hematocrit 54.9 % (40-54); Hemoglobin 17.3 g/dL (13.0-16.5); Lymphocyte # 0.64 X10^3/ul (0.83-4.51); Lymphocyte % 3.7 % (19-41); Mean Corp Hgb Conc 31.5 g/dL (32-36); Mean Corpuscular Hgb 28.7 pg (27.0-32.0); Mean Platelet Vol. 10.7 fl (6.2-12.0); Monocyte# 1.33 X10^3/uL; Monocyte% 7.7 % (0-10); NRBC Flagged by Analyzer 0 % (0-5); Neutrophil # 14.94 X10^3/uL (2.7-7.7); Neutrophil % 87.1 % (47-70); Platelet Count 382 K/mm3 (150-450); RBC Distribution Width CV 13.3 % (11.6-14.6); Red Blood Count 6.03 M/mm3 (4.6-6.2); White Blood Count 17.2 K/mm3 (4.4-11.0)
[2021-07-25 06:25] LABS: ALB/GLOB Ratio 0.6 RATIO (0.9-2.4); AST(SGOT) 13 U/L (15-37); Alanine Aminotransfer ALT/SGPT 30 U/L (16-61); Albumin, Serum 2.9 g/dL (3.2-5.0); Alkaline Phosphatase 73 U/L (45-117); Anion Gap 8 (5-15); BUN 36 mg/dL (7-18); Calcium,Total 9.3 mg/dL (8.5-10.1); Chloride 99 mmol/L (98-107); Creatinine, Serum 1.03 mg/dL (0.70-1.30); EST Glomerular Filtration Rate 76 mL/min (>60); Est Glom Filt Rate - Afr Amer 92 mL/min (>60); Estimated Creatinine Clearance 70.87 ml/min; Globulin 4.6 g/dL (2.2-4.2); Glucose 117 mg/dL (74-106); Potassium 3.8 mmol/L (3.5-5.1); Protein, Total 7.5 g/dL (6.4-8.2); Sodium Level 136 mmol/L (136-145)
[2021-07-25] MEDS: Enoxaparin 30 MG/0.3 ML Syringe SC ×2 (09:08→21:54)
[2021-07-25] MEDS: Aspirin E.C. 81 MG Tablet PO (09:08)
[2021-07-25] MEDS: dexAMETHasone 10 MG/ML Vial 6 MG IV (09:08)
[2021-07-25] MEDS: Cholecalciferol (VIT D3) 25 MCG TABLET (1,000 UNITS) 150 MCG PO (09:08)
[2021-07-25] MEDS: Pantoprazole Sodium 40 MG Tablet PO (09:08)
[2021-07-25] MEDS: NYSTATIN 500,000 UNIT/5 ML UDC 500000 UNIT PO ×2 (09:09→14:31)
[2021-07-25] MEDS: 0.9% Saline Lock 10 ML Syringe IV ×2 (09:09→17:26)
[2021-07-25] MEDS: Furosemide 40 MG/4 ML Vial IV ×2 (09:09→17:26)
[2021-07-25] MEDS: guaiFENesin 1,200 MG Tablet 1200 MG PO ×2 (09:09→21:55)
[2021-07-25] MEDS: Cyanocobalamin 500 MCG Tablet PO (09:09)
--- NOTE | 2021-07-25 11:48 | PCM.PN.INT ---
Assessment & Plan Assessment/Plan (1) Pneumonia due to COVID-19 virus: PLAN: RECOMMENDATIONS: 1. Continue to wean supplemental oxygen to maintain saturations at or above 90%. 2. Completed remdesivir. Likely not necessary to check LFTs daily 3. Continue Decadron to complete 10-day treatment course. 4. Encourage incentive spirometer use and mobilize patient as tolerated. 5. Resume CellCept once Decadron course is completed. 6. Perform walking oximetry study prior to consideration for discharge home. 7. The patient should follow-up with his primary registered nurse fetal after discharge from the hospital. 8. Consider allowing family to visit to improve patient participation IMPRESSIONS: 1. 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 He recently traveled to [place] and subsequently contracted COVID-19. The patient will be continued on supplemental oxygen to maintain saturations at or above 90%. Agree with holding CellCept for now. Continue Decadron. Completed remdesivir. Continue to monitor renal function accordingly. Continue Lovenox therapy as ordered. The patient can likely resume his outpatient CellCept regimen once he has completed his treatment course of Decadron. He should follow-up with his primary pulmonary provider as well following discharge from the hospital. Recovery complicated by poor motivation from the patient. Patient is likely at the convalescent stage of COVID-19, but is not participating with pulmonary toileting. Attempted to use morning improvement to motivate patient. Patient appears to be precontemplative. Stressed to the patient continued on use of the incentive spirometer could lead to a superinfection with bacterial pneumonia. 2. 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 These medications can be resumed once the patient has completed his treatment course of Decadron. 3. History of paroxysmal atrial fibrillation/hypertension/hyperlipidemia Complicates care, management, recovery and prognosis. Continue home medications as indicated. This note was generated with [employer] dictation software. It may contain incorrect words, spelling, and punctuation that were not noted in checking the note before signing. Subjective Subjective Patient was found up in the chair and was not happy about it. Patient also received Lasix this morning and was not happy for having to pee so much. However, patient had been able to be weaned from 10 L nasal cannula to 7 L nasal cannula. Patient states he is only getting approximately 200 cc on incentive spirometer and does not like to use it because it makes me cough. Objective Data Objective Data Vital Signs: Vital Signs Temp Pulse Resp BP Pulse Ox 36.4 C L 85 18 117/76 92 07/25/21 09:15 07/25/21 09:15 07/25/21 09:15 07/25/21 09:15 07/25/21 09:30 Oxygen Flow Rate (L/min) [ 87 AMBULATING with Oxygen #1] Oxygen Flow Rate (L/min) 8 Oxygen Delivery Method Nasal Cannula Weight: 83.9 kg Body Mass Index (BMI) 26.4 Intake & Output: Intake and Output for Last 24 Hours 07/23/21 07/24/21 07/25/21 23:59 23:59 23:59 Intake Total 920 / 920 740 / 740 Output Total 1800 / 1800 1075 / 1075 150 / 150 Balance -880 / -880 -335 / -335 -150 / -150 Medical Nutrition Assessment Dietitian: Malnutrition Criteria Met Start: 07/19/21 15:14 Freq: Status: Active Protocol: Document 07/24/21 14:34 AG (Rec: 07/24/21 14:35 AG [id number]) Nutrition Malnutrition Evidence of Malnutrition Exists Yes Malnutrition (severe): Acute Illness/Injury Evidenced By Suboptimal Energy Intake ( Severe),Weight Loss (Severe) Clinical Problem Acute Disease or Injury Related Malnutrition Etiology Severe protein-calorie malnutrition in the context of acute illness related to inadequate energy intake w/ ongoing poor appetite Signs/Symptoms as evidenced by 7% wt loss x past 2 weeks, estimated oral intake meeting less than 50% estimated nutrition needs x past 1-2 weeks. Status Active Problem Recommendation Dietitian Recommendations/Changes Continue regular diet, ensure w/ meals, and ensure pudding/ magic cup w/ meals. Lab / Micro Data Result Diagrams: 07/25/21 05:30 07/25/21 05:30 Labs: Laboratory Results - last 24 hr 07/25/21 05:30: WBC 17.2 H, RBC 6.03, Hgb 17.3 H, Hct 54.9 H, MCV 91.0, MCH 28.7, MCHC 31.5 L, RDW Std Deviation 45.0 H, RDW Coeff of Opal 13.3, Plt Count 382, MPV 10.7, Immature Gran % (Auto) 1.100 H, Neut % (Auto) 87.1 H, Lymph % (Auto) 3.7 L, [place] % (Auto) 7.7, Eos % (Auto) 0.2, Baso % (Auto) 0.2, Absolute Neuts (auto) 14.9 H, Absolute Lymphs (auto) 0.64 L, Nucleated RBC % 0 07/25/21 05:30: Sodium 136, Potassium 3.8, Chloride 99, Carbon Dioxide 29.0, Anion Gap 8, BUN 36 H, Creatinine 1.03, Estim Creat Clear Calc 70.87, Est GFR (MDRD) Af Amer 92, Est GFR (MDRD) Non-Af 76, BUN/Creatinine Ratio 35.0 H, Glucose 117 H, Calcium 9.3, Total Bilirubin 1.00, AST 13 L, ALT 30, Alkaline Phosphatase 73, Total Protein 7.5, Albumin 2.9 L, Globulin 4.6 H, Albumin/Globulin Ratio 0.6 L Micro: Microbiology 07/18/21 19:25 Blood Culture (Wb) - Anticubital Left Blood Culture - Final No growth in 5 days. 07/18/21 18:55 Blood Culture (Wb) - Anticubital Left Blood Culture - Final No growth in 5 days. 07/19/21 01:15 Sputum, Expectorated/Coughed Gram Stain - Final 07/19/21 01:15 Sputum, Expectorated/Coughed Respiratory Culture - Final 07/19/21 00:00 Mucosa - Nose Respiratory Panel (PCR) - Final 07/18/21 19:40 Nasal Secretion SARS-CoV-2 Antigen (Rapid) - Final SARS-CoV-2 (COVID 19) Physical Exam Const alert and no apparent distress General Appearance: cooperative HEENT normocephalic, head/scalp atraumatic and moist oral mucous membranes Eyes PERRL, EOMs intact bilaterally and conjunctivae normal Neck supple General: trachea midline Chest inspection of chest normal Chest: symmetrical chest wall rise; Negative for crepitus Resp no use of accessory muscles Resp Narrative: Fair effort. Effort and Inspection: decreased respiratory effort; Negative for respiratory distress Auscultation: rales bilateral base and diminished lung sounds; Negative for rhonchi or wheezes Cardio regular rate and regular rhythm GI normal to inspection, nondistended, normoactive bowel sounds Extremity no clubbing, cyanosis or edema Skin no rashes or lesions noted Neuro CN's II-XII intact bilaterally, moves all extremities and no focal motor deficits Psych cooperative Mood & Affect: flat affect Charges/Coding Visit Charges Inpatient E&M: 94372 Subs Hosp L2
--- NOTE | 2021-07-25 13:08 | NURSING ---
encouraged i.s. pt did a few times. encouraged. pt to sit in chair for lunch pt refused.
--- NOTE | 2021-07-25 15:24 | PCM.PN.HOSP ---
Subjective Subjective Breathing better. Able to ambulate in his room without increasing shortness of breath. Objective Data Objective Data Vital Signs: Vital Signs Temp Pulse Resp BP Pulse Ox 36.2 C L 83 20 H 120/97 H 97 07/25/21 14:34 07/25/21 15:21 07/25/21 14:34 07/25/21 14:34 07/25/21 14:34 Oxygen Flow Rate (L/min) [ 87 AMBULATING with Oxygen #1] Oxygen Flow Rate (L/min) 5 Oxygen Delivery Method Nasal Cannula Weight: 83.9 kg Body Mass Index (BMI) 26.4 Intake & Output: Intake and Output for Last 24 Hours 07/23/21 07/24/21 07/25/21 23:59 23:59 23:59 Intake Total 920 / 920 740 / 740 400 / 400 Output Total 1800 / 1800 1075 / 1075 500 / 500 Balance -880 / -880 -335 / -335 -100 / -100 Medical Nutrition Assessment Dietitian: Malnutrition Criteria Met Start: 07/19/21 15:14 Freq: Status: Active Protocol: Document 07/24/21 14:34 AG (Rec: 07/24/21 14:35 AG [id number]) Nutrition Malnutrition Evidence of Malnutrition Exists Yes Malnutrition (severe): Acute Illness/Injury Evidenced By Suboptimal Energy Intake ( Severe),Weight Loss (Severe) Clinical Problem Acute Disease or Injury Related Malnutrition Etiology Severe protein-calorie malnutrition in the context of acute illness related to inadequate energy intake w/ ongoing poor appetite Signs/Symptoms as evidenced by 7% wt loss x past 2 weeks, estimated oral intake meeting less than 50% estimated nutrition needs x past 1-2 weeks. Status Active Problem Recommendation Dietitian Recommendations/Changes Continue regular diet, ensure w/ meals, and ensure pudding/ magic cup w/ meals. Lab / Micro Data Result Diagrams: 07/25/21 05:30 07/25/21 05:30 Labs: Laboratory Results - last 24 hr 07/25/21 05:30: WBC 17.2 H, RBC 6.03, Hgb 17.3 H, Hct 54.9 H, MCV 91.0, MCH 28.7, MCHC 31.5 L, RDW Std Deviation 45.0 H, RDW Coeff of Opal 13.3, Plt Count 382, MPV 10.7, Immature Gran % (Auto) 1.100 H, Neut % (Auto) 87.1 H, Lymph % (Auto) 3.7 L, [place] % (Auto) 7.7, Eos % (Auto) 0.2, Baso % (Auto) 0.2, Absolute Neuts (auto) 14.9 H, Absolute Lymphs (auto) 0.64 L, Nucleated RBC % 0 07/25/21 05:30: Sodium 136, Potassium 3.8, Chloride 99, Carbon Dioxide 29.0, Anion Gap 8, BUN 36 H, Creatinine 1.03, Estim Creat Clear Calc 70.87, Est GFR (MDRD) Af Amer 92, Est GFR (MDRD) Non-Af 76, BUN/Creatinine Ratio 35.0 H, Glucose 117 H, Calcium 9.3, Total Bilirubin 1.00, AST 13 L, ALT 30, Alkaline Phosphatase 73, Total Protein 7.5, Albumin 2.9 L, Globulin 4.6 H, Albumin/Globulin Ratio 0.6 L Micro: Microbiology 07/18/21 19:25 Blood Culture (Wb) - Anticubital Left Blood Culture - Final No growth in 5 days. 07/18/21 18:55 Blood Culture (Wb) - Anticubital Left Blood Culture - Final No growth in 5 days. 07/19/21 01:15 Sputum, Expectorated/Coughed Gram Stain - Final 07/19/21 01:15 Sputum, Expectorated/Coughed Respiratory Culture - Final 07/19/21 00:00 Mucosa - Nose Respiratory Panel (PCR) - Final 07/18/21 19:40 Nasal Secretion SARS-CoV-2 Antigen (Rapid) - Final SARS-CoV-2 (COVID 19) Physical Exam Const alert Constitutional Narrative: Much better affect today patient was able to be ambulated from the chair to his bed his pulse ox remained in the mid 90s on 8 L. Resp normal respiratory effort, no retractions, no use of accessory muscles and clear to auscultation bilaterally Cardio regular rate, regular rhythm, S1 normal heart sound and S2 normal heart sound GI normal to inspection, nondistended, normoactive bowel sounds, soft to palpation, non-tender and non-distended Extremity normal to inspection Assessment & Plan Assessment/Plan (1) Pneumonia due to COVID-19 virus: (2) Acute respiratory failure with hypoxia: PLAN: 1. acute COVID 19 pneumonia onset 07/16 on dex Completed remdesivir 20-day quarantine vaccinated 2. ILD mycophenolate and pred on hold given dexa, resume when completed complicate overall care and recovery 3. acute hypoxic respiratory failure 2/2 Covid and ILD wean oxygen as able Schedule furosemide Appears to be improving. Now down to 5 L. 4. VTE prophylaxis: LMWH 5. Discharge planning: Anticipate home in the next 1 to 2 days if oxygenation continues to improve. 07/23: Patient had informed his that he was dying. To call the floor and then present to the waiting room. She was obviously very distressed and I want to see the patient. Foreign that she could not do so because have him having Covid. She states that he is not returning phone calls from her cell for other family members nor is he returning text. I reassured him that though he is still said he is not actively dying, at least at this point. I informed her that we will certainly let her know if he had any deterioration in his status. In the meantime, continue with the ongoing treatment. Charges/Coding Visit Charges Inpatient E&M: 69854 Subs Hosp L2
[2021-07-25] MEDS: Atorvastatin Calcium 10 MG Tablet 5 MG PO (21:55)
[2021-07-26] VITALS (9 sets, daily range): BP systolic 103–128; BP diastolic 70–82; PULSE 80–95; RESP 18; TEMP 35.8–36.6; O2SAT 84–95
[2021-07-26 06:55] LABS: Absolute Neutrophil Count 13.3 X10^3/uL (2.0-7.7); Basophil# 0.07 X10^3/uL; Basophil% 0.4 % (0-1); Eosinophil# 0.07 X10^3/uL; Eosinophils% 0.4 % (0-5); Hematocrit 54.8 % (40-54); Hemoglobin 17.4 g/dL (13.0-16.5); Lymphocyte % 4.4 % (19-41); Mean Corp Hgb Conc 31.8 g/dL (32-36); Mean Corpuscular Hgb 28.6 pg (27.0-32.0); Mean Corpuscular Volume 90.1 fL (80-94); Mean Platelet Vol. 9.9 fl (6.2-12.0); Monocyte# 1.56 X10^3/uL; Monocyte% 9.8 % (0-10); NRBC Flagged by Analyzer 0 % (0-5); Neutrophil # 13.25 X10^3/uL (2.7-7.7); Neutrophil % 83.4 % (47-70); POSITIVE DIFFERENTIAL YES; Platelet Count 368 K/mm3 (150-450); RBC Distribution Width CV 13.2 % (11.6-14.6); RBC Distribution Width SD 43.2 fl (35.1-43.9); Red Blood Count 6.08 M/mm3 (4.6-6.2); White Blood Count 15.9 K/mm3 (4.4-11.0)
[2021-07-26 07:05] LABS: Differential Indicated SCAN CRITERIA MET
[2021-07-26 08:23] LABS: ALB/GLOB Ratio 0.6 RATIO (0.9-2.4); AST(SGOT) 26 U/L (15-37); Alanine Aminotransfer ALT/SGPT 33 U/L (16-61); Albumin, Serum 2.7 g/dL (3.2-5.0); Alkaline Phosphatase 69 U/L (45-117); Anion Gap 5 (5-15); BUN 45 mg/dL (7-18); BUN/Creat Ratio 42.9 RATIO (10-20); Chloride 98 mmol/L (98-107); Creatinine, Serum 1.05 mg/dL (0.70-1.30); EST Glomerular Filtration Rate 75 mL/min (>60); Est Glom Filt Rate - Afr Amer 90 mL/min (>60); Estimated Creatinine Clearance 69.52 ml/min; Globulin 4.9 g/dL (2.2-4.2); Glucose 107 mg/dL (74-106); Potassium 4.1 mmol/L (3.5-5.1); Protein, Total 7.6 g/dL (6.4-8.2); Sodium Level 134 mmol/L (136-145)
--- NOTE | 2021-07-26 08:44 | PN.CC_ITS ---
Assessment & Plan Assessment/Plan (1) Pneumonia due to COVID-19 virus: PLAN: RECOMMENDATIONS: 1. Continue to wean supplemental oxygen to maintain saturations at or above 90%. 2. Completed remdesivir. Likely not necessary to check LFTs daily 3. Continue Decadron to complete 10-day treatment course. 4. Encourage incentive spirometer use and mobilize patient as tolerated. 5. Resume CellCept once Decadron course is completed (07/28/2021). 6. Obtain walking oximetry. Okay to discharge if able to ambulate on 6 L or less 7. The patient should follow-up with his primary alloy weigher after discharge from the hospital. 8. Consider allowing family to visit to improve patient participation IMPRESSIONS: 1. 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 He recently traveled to [place] and subsequently contracted COVID- 19. The patient will be continued on supplemental oxygen to maintain saturations at or above 90%. Agree with holding CellCept for now. Continue Decadron. Completed remdesivir. Continue to monitor renal function accordingly. Continue Lovenox therapy as ordered. The patient can likely resume his outpatient CellCept regimen once he has completed his treatment course of Decadron. He should follow-up with his primary pulmonary provider as well following discharge from the hospital. Recovery complicated by poor motivation from the patient. Patient is likely at the convalescent stage of COVID-19, but is not participating with pulmonary toileting. Obtain walking oximetry. If able to ambulate on 6 L or less, okay to discharge. 2. 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 These medications can be resumed once the patient has completed his treatment course of Decadron. 3. History of paroxysmal atrial fibrillation/hypertension/hyperlipidemia Complicates care, management, recovery and prognosis. Continue home medications as indicated. This note was generated with [employer] dictation software. It may contain incorrect words, spelling, and punctuation that were not noted in checking the note before signing. Subjective Subjective Patient did okay overnight. Patient has been able to go from 250 cc incentive spirometer to 500 cc. Patient has also had significant improvement in his oxygenation. Patient states his cough is still minorly productive. Nursing continues to report patient is resistant to participation in his care plan. Objective Data Objective Data Vital Signs: Vital Signs Temp Pulse Resp BP Pulse Ox 35.8 C L 83 18 128/82 H 94 07/26/21 03:51 07/26/21 07:00 07/26/21 03:51 07/26/21 03:51 07/26/21 03:51 Oxygen Flow Rate (L/min) [ 87 AMBULATING with Oxygen #1] Oxygen Flow Rate (L/min) 5 Oxygen Delivery Method Nasal Cannula Weight: 83.1 kg Body Mass Index (BMI) 26.4 Intake & Output: Intake and Output for Last 24 Hours 07/24/21 07/25/21 07/26/21 23:59 23:59 23:59 Intake Total 740 / 740 1150 / 1150 300 / 300 Output Total 1075 / 1075 1350 / 1350 400 / 400 Balance -335 / -335 -200 / -200 -100 / -100 Medical Nutrition Assessment Dietitian: Malnutrition Criteria Met Start: 07/19/21 15:14 Freq: Status: Active Protocol: Document 07/24/21 14:34 AG (Rec: 07/24/21 14:35 AG [id number]) Nutrition Malnutrition Evidence of Malnutrition Exists Yes Malnutrition (severe): Acute Illness/Injury Evidenced By Suboptimal Energy Intake ( Severe),Weight Loss (Severe) Clinical Problem Acute Disease or Injury Related Malnutrition Etiology Severe protein-calorie malnutrition in the context of acute illness related to inadequate energy intake w/ ongoing poor appetite Signs/Symptoms as evidenced by 7% wt loss x past 2 weeks, estimated oral intake meeting less than 50% estimated nutrition needs x past 1-2 weeks. Status Active Problem Recommendation Dietitian Recommendations/Changes Continue regular diet, ensure w/ meals, and ensure pudding/ magic cup w/ meals. Lab / Micro Data Result Diagrams: 07/26/21 06:41 07/26/21 06:41 Labs: Laboratory Results - last 24 hr 07/26/21 06:41: WBC 15.9 H, RBC 6.08, Hgb 17.4 H, Hct 54.8 H, MCV 90.1, MCH 28.6, MCHC 31.8 L, RDW Std Deviation 43.2, RDW Coeff of Opal 13.2, Plt Count 368, MPV 9.9, Immature Gran % (Auto) 1.600 H, Neut % (Auto) 83.4 H, Lymph % (Auto) 4.4 L, [place] % (Auto) 9.8, Eos % (Auto) 0.4, Baso % (Auto) 0.4, Absolute Neuts (auto) 13.3 H, Absolute Lymphs (auto) 0.70 L, Nucleated RBC % 0, Diff Path Review March07/26/21 06:41: Sodium 134 L, Potassium 4.1, Chloride 98, Carbon Dioxide 31.0, Anion Gap 5, BUN 45 H, Creatinine 1.05, Estim Creat Clear Calc 69.52, Est GFR (MDRD) Af Amer 90, Est GFR (MDRD) Non-Af 75, BUN/Creatinine Ratio 42.9 H, Glucose 107 H, Calcium 9.0, Total Bilirubin 1.40 H, AST 26, ALT 33, Alkaline Phosphatase 69, Total Protein 7.6, Albumin 2.7 L, Globulin 4.9 H, Albumin/Globulin Ratio 0.6 L Micro: Microbiology 07/18/21 19:25 Blood Culture (Wb) - Anticubital Left Blood Culture - Final No growth in 5 days. 07/18/21 18:55 Blood Culture (Wb) - Anticubital Left Blood Culture - Final No growth in 5 days. 07/19/21 01:15 Sputum, Expectorated/Coughed Gram Stain - Final 07/19/21 01:15 Sputum, Expectorated/Coughed Respiratory Culture - Final 07/19/21 00:00 Mucosa - Nose Respiratory Panel (PCR) - Final 07/18/21 19:40 Nasal Secretion SARS-CoV-2 Antigen (Rapid) - Final SARS-CoV-2 (COVID 19) Physical Exam Const alert and no apparent distress General Appearance: cooperative HEENT normocephalic, head/scalp atraumatic and moist oral mucous membranes Eyes PERRL, EOMs intact bilaterally and conjunctivae normal Neck supple General: trachea midline Chest inspection of chest normal Chest: symmetrical chest wall rise; Negative for crepitus Resp no use of accessory muscles Resp Narrative: Fair effort. Effort and Inspection: decreased respiratory effort; Negative for respiratory distress Auscultation: rales bilateral base and diminished lung sounds; Negative for rhonchi or wheezes Cardio regular rate and regular rhythm GI normal to inspection, nondistended, normoactive bowel sounds Extremity no clubbing, cyanosis or edema Skin no rashes or lesions noted Neuro CN's II-XII intact bilaterally, moves all extremities and no focal motor deficits Psych cooperative Mood & Affect: flat affect Charges/Coding Visit Charges Inpatient E&M: 11794 Subs Hosp L2
[2021-07-26] MEDS: Enoxaparin 30 MG/0.3 ML Syringe SC (08:57)
[2021-07-26] MEDS: Cyanocobalamin 500 MCG Tablet PO (08:57)
[2021-07-26] MEDS: Cholecalciferol (VIT D3) 25 MCG TABLET (1,000 UNITS) 150 MCG PO (08:57)
[2021-07-26] MEDS: Aspirin E.C. 81 MG Tablet PO (08:58)
[2021-07-26] MEDS: Furosemide 40 MG/4 ML Vial IV (08:58)
[2021-07-26] MEDS: guaiFENesin 1,200 MG Tablet 1200 MG PO (08:58)
[2021-07-26] MEDS: Pantoprazole Sodium 40 MG Tablet PO (08:59)
[2021-07-26] MEDS: dexAMETHasone 10 MG/ML Vial 6 MG IV (08:59)
[2021-07-26] MEDS: 0.9% Saline Lock 10 ML Syringe IV (08:59)
--- NOTE | 2021-07-26 12:15 | PCM.DC ---
Discharge Instructions Diet Discharge Diet: No restrictions Activity Discharge Activity: Return to Normal Activity Additional Activity Instructions:: Oxygen 5L with rest and activity. Self isolate for at least 20 days since symptoms began (07/16-08/04/2021) AND improvement of symptoms (e.g., cough, shortness of breath) When around people in the same room, wear a face mask. Individuals also in the room should wear a mask. If possible, use a different bathroom and bedroom. Perform adequate hand hygiene. Avoid sharing dishes, glasses, etc. Dressing / Incision Call your doctor if you observe: Shortness of breath Follow Up Care Test Results: Test results from this visit will be discussed in further detail at your follow-up appointment, if applicable. Discharge Plan Admission Admit Date/Time: 07/18/21 20:54 Primary Reason for Your Visit: COVID 19 Attending Provider: Wagner Portillo Primary Care Provider: Tanya Pettit Consulting Providers: Yoav Carrington Discharge Orders/Prescriptions Prescriptions: New Mucus Relief ER 1,200 mg Tablet Extended Release 12hr 1,200 mg PO BID Qty: 10 RF: 0 dexamethasone 6 mg tablet 6 mg PO DAILY Qty: 2 RF: 0 Continued pantoprazole 40 mg tablet,delayed release (DR/EC) 40 mg PO DAILY RF: 0 Prolia 60 mg/mL syringe 60 mg subcut [id number] RF: 0 cyanocobalamin (vitamin B-12) 500 mcg tablet 500 mcg PO DAILY RF: 0 aspirin [Adult Low Dose Aspirin] 81 mg tablet,delayed release (DR/EC) 81 mg PO DAILY RF: 0 simvastatin 10 MG tablet 10 mg PO DAILY RF: 0 zinc 100 mg Tablet 100 mg PO DAILY RF: 0 Vitamin D3 6,000 mcg PO/SL DAILY RF: 0 prednisone 10 mg tablet 40 mg PO DAILY Qty: 27 RF: 0 Held prednisone 1 mg tablet 5 mg PO BID RF: 0 Hold Instructions: Resume on 08/07/21. mycophenolate mofetil 500 MG tablet 1,500 mg PO BID RF: 0 Hold Instructions: Resume on 07/29/21. Referrals / Follow Up: Tanya Pettit DO [Primary Care Provider] - Within 2 Weeks Disposition Disposition (needs filled in before D/C Order can be placed): Home, Self Care
--- NOTE | 2021-07-26 12:24 | PCM.DC.SUM ---
Providers Date of Admission: 07/18/21 Primary Care Physician: Dr. Tanya Pettit DO Consultations 07/18/21 22:05 Consult: Agricultural Engineering Technologist / Pulmonary Medicine Routine Consulting Provider: Yoav Carrington Reason for Consult: COVID PNA, Hypoxia, worsening, underlying Autoimmune lung disease EMERGENT Consult: No MD Notified: Yes Date Notified: 07/18/21 Time Notified: 20:53 Method of Notification: cortext Reason For Visit: HYPOXIA COVID PNA AUTOIMMUNE LUNG DISEASE Diagnosis Discharge Diagnosis (1) Pneumonia due to COVID-19 virus: Status: Acute Code(s): U07.1 - COVID-19; J12.82 - Pneumonia due to coronavirus disease 2019 (2) Acute respiratory failure with hypoxia: Status: Acute Code(s): J96.01 - Acute respiratory failure with hypoxia Medications at Discharge Home Medications simvastatin 10 mg PO DAILY 08/07/17 mycophenolate mofetil 1,500 mg PO BID 09/16/19 aspirin 81 mg tablet,delayed release 81 mg PO DAILY 07/14/21 cyanocobalamin (vitamin B-12) 500 mcg tablet 500 mcg PO DAILY 07/14/21 denosumab 60 mg/mL subcutaneous syringe 60 mg SUBCUT [id number] 07/14/21 pantoprazole 40 mg tablet,delayed release 40 mg PO DAILY 07/14/21 prednisone 1 mg tablet 5 mg PO BID tab 07/14/21 Vitamin D3 6,000 mcg PO/SL DAILY 07/18/21 zinc 100 mg PO DAILY 07/18/21 dexamethasone 6 mg PO DAILY #2 tab 07/26/21 guaifenesin [Mucus Relief ER] 1,200 mg PO BID #10 tab 07/26/21 prednisone 40 mg PO DAILY #27 tab 07/26/21 Hospital Course Operations None Procedures None Summary of Care Provided Minutes Spent on Discharge: 35 Hospital Course: 70-year-old male presents with shortness of breath and cough. Symptoms began the and had a positive Covid test on that date. Patient was vaccinated for COVID-19. Patient had been around his in [place] who had been sick for about a week prior. Patient was treated with remdesivir as well as dexamethasone. Patient was requiring high flow oxygen up to 10 to 12 L. Patient was also put on furosemide and is gradually improved. Patient was noted to be 84% on room air but improved to 92% with 5 L with activity. Patient will be discharged with oxygen. Patient will continue with his dexamethasone complete a 10-day course for 2 more doses then afterwards, since patient is steroid-dependent he will taper down to his 5 mg twice daily. Patient will also hold off on his mycophenolate until he is complete his dexamethasone and then he can resume that. Patient has interstitial lung disease which complicates his overall picture and due to the immunosuppressive medication with prednisone and mycophenolate he likely did not developing good immune response with the vaccine. Physical Exam Const alert General Appearance: cooperative HEENT normocephalic Resp normal respiratory effort, no retractions, no use of accessory muscles and clear to auscultation bilaterally Cardio regular rate, regular rhythm, S1 normal heart sound and S2 normal heart sound GI normal to inspection, nondistended, normoactive bowel sounds Medical Records Data Medical Nutrition Assessment Dietitian: Malnutrition Criteria Met Start: 07/19/21 15:14 Freq: Status: Active Protocol: Document 07/24/21 14:34 AG (Rec: 07/24/21 14:35 [id number]) Nutrition Malnutrition Evidence of Malnutrition Exists Yes Malnutrition (severe): Acute Illness/Injury Evidenced By Suboptimal Energy Intake ( Severe),Weight Loss (Severe) Clinical Problem Acute Disease or Injury Related Malnutrition Etiology Severe protein-calorie malnutrition in the context of acute illness related to inadequate energy intake w/ ongoing poor appetite Signs/Symptoms as evidenced by 7% wt loss x past 2 weeks, estimated oral intake meeting less than 50% estimated nutrition needs x past 1-2 weeks. Status Active Problem Recommendation Dietitian Recommendations/Changes Continue regular diet, ensure w/ meals, and ensure pudding/ magic cup w/ meals. Weight / BMI Weight Weight: 83.1 kg Body Mass Index (BMI) 26.4 ABG / Lab / Microbiology Data Result Diagrams: 07/26/21 06:41 07/26/21 06:41 Laboratory: Laboratory Results - last 24 hr 07/26/21 06:41: WBC 15.9 H, RBC 6.08, Hgb 17.4 H, Hct 54.8 H, MCV 90.1, MCH 28.6, MCHC 31.8 L, RDW Std Deviation 43.2, RDW Coeff of Opal 13.2, Plt Count 368, MPV 9.9, Immature Gran % (Auto) 1.600 H, Neut % (Auto) 83.4 H, Lymph % (Auto) 4.4 L, [place] % (Auto) 9.8, Eos % (Auto) 0.4, Baso % (Auto) 0.4, Absolute Neuts (auto) 13.3 H, Absolute Lymphs (auto) 0.70 L, Nucleated RBC % 0, Diff Path Review March07/26/21 06:41: Sodium 134 L, Potassium 4.1, Chloride 98, Carbon Dioxide 31.0, Anion Gap 5, BUN 45 H, Creatinine 1.05, Estim Creat Clear Calc 69.52, Est GFR (MDRD) Af Amer 90, Est GFR (MDRD) Non-Af 75, BUN/Creatinine Ratio 42.9 H, Glucose 107 H, Calcium 9.0, Total Bilirubin 1.40 H, AST 26, ALT 33, Alkaline Phosphatase 69, Total Protein 7.6, Albumin 2.7 L, Globulin 4.9 H, Albumin/Globulin Ratio 0.6 L Microbiology: Microbiology 07/18/21 19:25 Blood Culture (Wb) - Anticubital Left Blood Culture - Final No growth in 5 days. 07/18/21 18:55 Blood Culture (Wb) - Anticubital Left Blood Culture - Final No growth in 5 days. 07/19/21 01:15 Sputum, Expectorated/Coughed Gram Stain - Final 07/19/21 01:15 Sputum, Expectorated/Coughed Respiratory Culture - Final 07/19/21 00:00 Mucosa - Nose Respiratory Panel (PCR) - Final 07/18/21 19:40 Nasal Secretion SARS-CoV-2 Antigen (Rapid) - Final SARS-CoV-2 (COVID 19) D/C Instructions Discharge Diet: No restrictions Additional Activity Instructions: Oxygen 5L with rest and activity. Self isolate for at least 20 days since symptoms began (07/16-08/04/2021) AND improvement of symptoms (e.g., cough, shortness of breath) When around people in the same room, wear a face mask. Individuals also in the room should wear a mask. If possible, use a different bathroom and bedroom. Perform adequate hand hygiene. Avoid sharing dishes, glasses, etc. Call your doctor if you observe: Shortness of breath Meaningful Use Info Meaningful Use Diagnoses (Choose all that apply): None applicable Discharge Plan Admission Admit Date/Time: 07/18/21 20:54 Primary Reason for Your Visit: COVID 19 Attending Provider: Wagner Portillo Primary Care Provider: Tanya Pettit Consulting Providers: Yoav Carrington Discharge Orders/Prescriptions Prescriptions: New Mucus Relief ER 1,200 mg Tablet Extended Release 12hr 1,200 mg PO BID Qty: 10 RF: 0 dexamethasone 6 mg tablet 6 mg PO DAILY Qty: 2 RF: 0 Continued pantoprazole 40 mg tablet,delayed release (DR/EC) 40 mg PO DAILY RF: 0 Prolia 60 mg/mL syringe 60 mg subcut [id number] RF: 0 cyanocobalamin (vitamin B-12) 500 mcg tablet 500 mcg PO DAILY RF: 0 aspirin [Adult Low Dose Aspirin] 81 mg tablet,delayed release (DR/EC) 81 mg PO DAILY RF: 0 simvastatin 10 MG tablet 10 mg PO DAILY RF: 0 zinc 100 mg Tablet 100 mg PO DAILY RF: 0 Vitamin D3 6,000 mcg PO/SL DAILY RF: 0 prednisone 10 mg tablet 40 mg PO DAILY Qty: 27 RF: 0 Held prednisone 1 mg tablet 5 mg PO BID RF: 0 Hold Instructions: Resume on 08/07/21. mycophenolate mofetil 500 MG tablet 1,500 mg PO BID RF: 0 Hold Instructions: Resume on 07/29/21. Referrals / Follow Up: Tanya Pettit DO [Primary Care Provider] - Within 2 Weeks Disposition Disposition (needs filled in before D/C Order can be placed): Home, Self Care Charges/Coding Visit Charges Inpatient E&M: 39866 Disch Hosp
--- NOTE | 2021-07-29 14:38 | CASEMGMT ---
RACHELLE MÁRQUEZ Discharge Follow-up Phone Call: KRISTIN: Yolande Strata: 4 Call Date: 07/29/21 Discharge Date: 07/26/21 Time of Call: 1437 Duration: 3 min Admitting Diagnosis: Covid RACHELLE MÁRQUEZ completed follow-up phone call after recent hospitalization. Patient states he has been doing well and has been in contact with his PCP office. Patient states his breathing had been good, wearing his home oxygen that was delivered with no problems. Patient was able to fill prescriptions without any issues. Patient had no further questions or concerns regarding discharge instructions.
[2021-07-29 16:01] LABS: Pathologist Review Reviewed
== END 2021-07-26 14:07 | disposition home or self-care (01) | DRG 177 ==
LOC: ED 20:26 → PCU 22:02
PROVIDERS: Internal Medicine; Admitting Provider Family Medicine; Emergency Provider Emergency Medicine; PCP Internal Medicine
DX: U07.1 COVID-19 (principal); J12.82 Pneumonia due to coronavirus disease 2019; J96.01 Acute respiratory failure with hypoxia; B37.0 Candidal stomatitis; R04.2 Hemoptysis; J84.9 Interstitial pulmonary disease, unspecified; I45.10 Unspecified right bundle-branch block; D89.89 Other specified disorders involving the immune mechanism, not elsewhere classified; E78.2 Mixed hyperlipidemia; I10 Essential (primary) hypertension; I48.0 Paroxysmal atrial fibrillation; K21.9 Gastro-esophageal reflux disease without esophagitis; K76.0 Fatty (change of) liver, not elsewhere classified; M81.0 Age-related osteoporosis without current pathological fracture; J45.909 Unspecified asthma, uncomplicated; N40.0 Benign prostatic hyperplasia without lower urinary tract symptoms; Z79.82 Long term (current) use of aspirin; Z87.442 Personal history of urinary calculi; Z79.899 Other long term (current) drug therapy
CPT/HCPCS: 36415; 71045; 71275; 80053; 82728; 83605; 83615; 83735; 83880; 84145; 84484; 85025; 85379; 86140; 87040; 87070; 87205; 87426; 87633; 93005; 94640; 97802; 97803; 99251; 99285; J7030; J7050; Q9967; A4216; G0463; J1940

== ENCOUNTER → 2021-08-15 16:27 | Outpatient (CLI) | payer BC, SELFPAY ==
--- NOTE | 2021-08-15 16:29 | RAD_ITS ---
STUDY: X-RAY CHEST REASON FOR EXAM: Male, 70 years old. Fever and cough TECHNIQUE: PA and lateral views of the chest. COMPARISON: 07/18/2021 FINDINGS: Lungs are expanded with superimposed interstitial and airspace opacifications which have worsened since the previous study. No demonstrated effusions. Normal size heart. Normal mediastinum and tete. Normal visualized pulmonary arteries. Normal visualized aortic arch and descending thoracic aorta. Normal visualized thoracic spine. Normal visualized ribs, clavicles, and shoulders. There is no demonstrated abnormality of the visualized soft tissue structures of the upper abdomen. RAD/Chest PA and Lateral IMPRESSION: Progression/worsening of interstitial and airspace opacifications in both lung dickson compared to the previous study. Electronically Signed: Mike Call MD at 17:54 EDT , Service support ,
== END ==
PROVIDERS: PCP Internal Medicine; Referring Provider Internal Medicine Pulmonary Disease; Visit Provider Internal Medicine Pulmonary Disease
DX: J47.9 Bronchiectasis, uncomplicated (principal); Z86.16 Personal history of COVID-19
CPT/HCPCS: 71046

== ENCOUNTER → 2021-09-19 13:14 | Outpatient (CLI) | payer BC, SELFPAY ==
--- NOTE | 2021-09-19 13:16 | RAD_ITS ---
STUDY: X-RAY CHEST REASON FOR EXAM: Male, 70 years old. DYSPNEA TECHNIQUE: PA and lateral views of the chest. COMPARISON: 08/15/2021 FINDINGS: Multilobar reticular and consolidative infiltrates in the bilateral lungs have decreased since the prior study. There is no demonstrated pleural abnormality. Normal size heart. Normal mediastinum and tete. Normal visualized pulmonary arteries. Normal visualized aortic arch and descending thoracic aorta. There are diffuse degenerative changes of the visualized thoracic spine. Normal visualized ribs, clavicles, and shoulders. There is no demonstrated abnormality of the visualized soft tissue structures of the upper abdomen. RAD/Chest PA and Lateral IMPRESSION: 1. Favorable change. Partial resolution of multilobar interstitial/airspace disease. Electronically Signed: Justice Rose MD (Brooks) at 16:23 EDT , Service support ,
== END ==
PROVIDERS: PCP Internal Medicine; Referring Provider Internal Medicine Pulmonary Disease; Visit Provider Internal Medicine Pulmonary Disease
DX: J84.116 Cryptogenic organizing pneumonia (principal)
CPT/HCPCS: 71046

== ENCOUNTER → 2021-10-20 12:49 | Outpatient (CLI) | payer BC, SELFPAY ==
--- NOTE | 2021-10-20 12:52 | RAD_ITS ---
STUDY: X-RAY CHEST REASON FOR EXAM: Male, 70 years old. History of COVID. Dyspnea. TECHNIQUE: PA and lateral views of the chest. COMPARISON: 09/19/2021 and 09/29/2019. FINDINGS: Limited inspiratory effort. There is these are similar to findings seen on previous study of 09/29/2019 and thought to be chronic. Interstitial changes in the lungs similar to the previous examination. There is no demonstrated pleural abnormality. Normal size heart. Normal mediastinum and tete. Normal visualized pulmonary arteries. There is atherosclerotic calcification of the aortic arch with tortuosity. There are diffuse degenerative changes of the visualized thoracic spine. There is degenerative osteoarthritis of the bilateral shoulders. There is no demonstrated abnormality of the visualized soft tissue structures of the upper abdomen. RAD/Chest PA and Lateral IMPRESSION: Chronic pulmonary changes without acute cardiopulmonary disease. Electronically Signed: Rainer Barnes DO at 17:14 EST Tel [phone], Service support ,
== END ==
PROVIDERS: PCP Internal Medicine; Referring Provider Internal Medicine Pulmonary Disease; Visit Provider Internal Medicine Pulmonary Disease
DX: U07.1 COVID-19 (principal); J84.116 Cryptogenic organizing pneumonia
CPT/HCPCS: 71046

== ENCOUNTER → 2021-10-24 15:42 | Outpatient (CLI) | payer BC, SELFPAY ==
[2021-10-24 17:20] LABS: Absolute Lymphocyte Count 0.42 X10^3/uL (0.83-4.51); Absolute Neutrophil Count 11.8 X10^3/uL (2.0-7.7); Basophil# 0.06 X10^3/uL; Basophil% 0.5 % (0-1); Eosinophil# 0.01 X10^3/uL; Eosinophils% 0.1 % (0-5); Hematocrit 48.5 % (40-54); Hemoglobin 14.8 g/dL (13.0-16.5); Lymphocyte # 0.42 X10^3/ul (0.83-4.51); Lymphocyte % 3.2 % (19-41); Mean Corp Hgb Conc 30.5 g/dL (32-36); Mean Corpuscular Hgb 29.3 pg (27.0-32.0); Mean Platelet Vol. 9.9 fl (6.2-12.0); Monocyte# 0.64 X10^3/uL; Monocyte% 4.9 % (0-10); NRBC Flagged by Analyzer 0 % (0-5); Neutrophil # 11.81 X10^3/uL (2.7-7.7); Neutrophil % 89.9 % (47-70); POSITIVE DIFFERENTIAL YES; Platelet Count 309 K/mm3 (150-450); RBC Distribution Width CV 15.9 % (11.6-14.6); RBC Distribution Width SD 56.6 fl (35.1-43.9); Red Blood Count 5.05 M/mm3 (4.6-6.2); White Blood Count 13.1 K/mm3 (4.4-11.0)
[2021-10-24 17:51] LABS: Differential Indicated SCAN CRITERIA MET
[2021-10-24 17:52] LABS: Differential Comment SCANNED
[2021-10-24 18:12] LABS: AST(SGOT) 11 U/L (15-37); Alanine Aminotransfer ALT/SGPT 25 U/L (16-61); CPK Total, Creatine Kinase 31 U/L (39-308)
== END ==
PROVIDERS: PCP Internal Medicine; Visit Provider Internal Medicine Pulmonary Disease
DX: U07.1 COVID-19 (principal); J84.116 Cryptogenic organizing pneumonia
CPT/HCPCS: 36415; 82550; 84450; 84460; 85025

== ENCOUNTER 2022-01-12 08:45 | Outpatient (CLI) | payer BC, SELFPAY ==
[2022-01-12 08:49] VITALS: BP 116/67; PULSE 73; RESP 16; TEMP 36; O2SAT 94; BMI 27.3
[2022-01-12] MEDS: DENOSUMAB 60 MG/ML SC (08:56)
== END 2022-01-12 23:59 | disposition home or self-care (01) ==
LOC: MEDOUTP 08:46
PROVIDERS: PCP Internal Medicine; Referring Provider Internal Medicine; Visit Provider Internal Medicine
DX: M81.0 Age-related osteoporosis without current pathological fracture (principal)
CPT/HCPCS: 96372; J0897

== ENCOUNTER 2022-02-03 07:17 | Outpatient (CLI) | payer BC, SELFPAY ==
--- NOTE | 2022-02-03 13:37 | STRESSREP ---
Stress Test Report Date: 02-03-2022 Procedure: Pharmacologic stress nuclear imaging study Indications: Abnormal ECG; right bundle branch block; atrial fibrillation Consent: Per the patient Procedure: The patient underwent pharmacologic (Regadenoson 0.4mg ) evaluation with a peak heart rate of 100 beats per minute (66%predicted maximal heart rate) and a peak blood pressure of 118/70 mmHg. The baseline ECG demonstrated sinus bradycardia; right bundle branch block. The peak pharmacologic ECG demonstrated no obvious ECG changes. There were no cardiac dysrhythmias pretest, during pharmacologic infusion, or recovery. There was no complaint of chest discomfort during pharmacologic infusion or recovery. The examination was discontinued secondary to completion of protocol. Impression: 1. Pharmacologic (Regadenoson) evaluation 2. Peak pharmacologic ECG with no obvious ECG changes. 3. There were no cardiac dysrhythmias pretest, during pharmacologic infusion, or recovery. 4. Nuclear images pending Myocardial perfusion imaging study: Technique: The patient was injected with 11.7 millicuries of technetium 99m Cardiolite and subsequently rest SPECT Cardiolite nuclear imaging was obtained in the horizontal long, vertical long, and short axis views. The patient underwent pharmacologic (Regadenoson) evaluation with a peak heart rate of 100 beats per minute (66% percent predicted maximal heart rate) and a peak blood pressure of 118/70 mmHg. The patient was injected with 33.3 millicuries of technetium 99m Cardiolite and subsequently stress SPECT Cardiolite nuclear imaging was obtained in the horizontal long, vertical long, and short axis views. A gated Cardiolite study at peak stress was obtained. Interpretation: Rest and stress SPECT Cardiolite nuclear imaging status post realignment, normalization, and attenuation correction demonstrate relative uniform tracer uptake and myocardial perfusion appearing within normal limits. There is end systolic thickening and brightening. The gated Cardiolite study demonstrates myocardial thickening and inward wall motion. The reported LVEF is 67%. Impression: 1. Rest and stress SPECT Cardiolite nuclear imaging demonstrate relative uniform tracer uptake and myocardial perfusion appearing within normal limits. 2. The gated Cardiolite study reports an LVEF of 6%. This note was generated with Pi-Cardiaation software. It may contain incorrect words, spelling, and punctuation that were not noted in checking the note before signing.
== END 2022-02-03 23:59 | disposition home or self-care (01) ==
LOC: CVS 07:18
PROVIDERS: PCP Internal Medicine; Referring Provider Internal Medicine Cardiovascular Disease; Visit Provider Internal Medicine Cardiovascular Disease
DX: I25.10 Atherosclerotic heart disease of native coronary artery without angina pectoris (principal); I48.91 Unspecified atrial fibrillation; I10 Essential (primary) hypertension; E78.2 Mixed hyperlipidemia; R93.1 Abnormal findings on diagnostic imaging of heart and coronary circulation; R55 Syncope and collapse
CPT/HCPCS: 78452; 93017; A9500; A4216; J2785

== ENCOUNTER 2022-03-12 16:00 | Outpatient (CLI) | payer BC, SELFPAY ==
[2022-03-12 17:49] LABS: Hematocrit 48.8 % (40-54); Hemoglobin 15.7 g/dL (13.0-16.5); Mean Corp Hgb Conc 32.2 g/dL (32-36); Mean Corpuscular Volume 93.3 fL (80-94); Platelet Count 263 K/mm3 (150-450); RBC Distribution Width CV 14.4 % (11.6-14.6); RBC Distribution Width SD 49.2 fl (35.1-43.9); Red Blood Count 5.23 M/mm3 (4.6-6.2); White Blood Count 11.7 K/mm3 (4.4-11.0)
[2022-03-12 17:55] LABS: AST(SGOT) 10 U/L (15-37); Alanine Aminotransfer ALT/SGPT 26 U/L (16-61); EST Glomerular Filtration Rate 64 mL/min (>60); Est Glom Filt Rate - Afr Amer 77 mL/min (>60)
== END 2022-03-12 23:59 | disposition home or self-care (01) ==
LOC: MTLAB 16:01
PROVIDERS: PCP Internal Medicine; Referring Provider Internal Medicine Pulmonary Disease; Visit Provider Internal Medicine Pulmonary Disease
DX: J84.112 Idiopathic pulmonary fibrosis (principal); Z79.899 Other long term (current) drug therapy
CPT/HCPCS: 36415; 82565; 84450; 84460; 85027

== ENCOUNTER → 2022-04-14 | Outpatient (CLI) | payer BC, SELFPAY ==
--- NOTE | 2022-04-14 08:02 | US_ITS ---
STUDY: ABDOMINAL ULTRASOUND - RIGHT UPPER QUADRANT REASON FOR VISIT: Male, 71 years old. ABDOMEN PAIN FATTY LIVER TECHNIQUE: Ultrasound evaluation of the right upper quadrant was performed with real-time and static ozuna-scale imaging. TECHNICAL QUALITY: Adequate. COMPARISON: ct 5. FINDINGS: Liver: There is increased echogenicity consistent with fatty infiltration. The bile ducts are within normal limits. There is hepatic color flow. The direction of portal flow is hepatopetal. There is no demonstrated mass lesion. Gallbladder: Normal distended gallbladder. The gallbladder wall measures 5.1 mm. There is a negative sonographic Pineda''s sign. There is no pericholecystic fluid. There are no gallstones. Ringdown artifact in the wall of the gallbladder. Common Bile Duct (C.B.D.): The common bile duct measures ( in mm): 2.6 Pancreas: It is not visualized. There is too much overlying bowel gas. Right Kidney: Normal size of the right kidney. The right kidney measures 12 cm. . Normal renal cortex. There is a cyst. This measures 56 mm. There is no right hydronephrosis. Right renal stone measuring 6 mm. Aorta: It is not visualized. There is too much overlying bowel gas. . US/Liver IMPRESSION: Fatty liver. Thickened gallbladder wall. This may be related to adenomyomatosis. Simple right renal cyst are no follow-up required. Nonobstructive right renal stone. Electronically Signed: Charly Alcantar MD at 19:28 EDT ,
--- NOTE | 2022-04-14 09:07 | BD_ITS ---
STUDY: DUAL ENERGY X-RAY ABSORPTIOMETRY / DXA REASON FOR EXAM: Male, 71 years old. M810 TECHNIQUE: Bone Mineral Density (BMD) measurements of lumbar spine and bilateral hips were obtained. COMPARISON: Comparison is made with prior study dated 10/05/2019. FINDINGS: Lumbar Spine (L1-L4): g/cm2 (0.984) / T-score (-0.6) / Z-score (0.2) Findings are suggestive of normal bone density with a low fracture risk. Left Femur Total: g/cm2 (0.812) / T-score (-1.5) / Z-score (-0.8) Left Femoral Neck: g/cm2 (0.650) / T-score (-2.1) / Z-score (-0.9) Right Femur Total: g/cm2 (0.882) / T-score (-1.0) / Z-score (-0.4) Right Femoral Neck: g/cm2 (0.707) / T-score (-1.6) / Z-score (-0.5) The T-Scores on the most recent prior examination were: Lumbar Spine (L1-L4): There has been worsening of bone density since the previous examination. Left Femur Total: which represents an improvement of 11.3%. Right Femur Total: which represents an improvement of 13.4%. BD/Dexa Bone Density Study IMPRESSION: The patient is considered osteopenic as outlined below according to World [place] Organization (WHO) criteria with a moderate fracture risk. There has been improvement of bone density since the previous examination. Reference Information: The T-score is the number of standard deviations above or below the standard which is normal for young adults at their peak bone mineral density. The World Health Organization (WHO) interprets the T-scores as follows: Above -1 Normal bone density Between -1 and -2.5 Osteopenia Equal to / or below -2.5 Osteoporosis As a practical clinical guideline, osteopenia may be graded as follows: Mild -1 through -1.5 Moderate -1.6 through -2.0 Severe -2.1 through -2.4 The Z-score is the number of standard deviations above or below age-matched controls. A Z-score of less than -1.5 would be considered abnormal. References: 1. NIH Osteoporosis and Related Bone Diseases www osteo.org 2. International Society for Clinical Densitometry www iscd.org 3. National Osteoporosis Foundation www nof.org Electronically Signed: Harinder Melton MD at 15:42 EDT ,
== END | disposition home or self-care (01) ==
LOC: US 08:01
PROVIDERS: PCP Internal Medicine; Visit Provider Internal Medicine
DX: K76.0 Fatty (change of) liver, not elsewhere classified (principal); M81.0 Age-related osteoporosis without current pathological fracture
CPT/HCPCS: 76705; 77080

== ENCOUNTER 2022-05-27 14:16 | Outpatient (CLI) | payer BC, SELFPAY ==
[2022-05-27 14:46] VITALS: BP 102/64; PULSE 79; RESP 16; TEMP 37.3; O2SAT 92; BMI 26.6
[2022-05-27] MEDS: BEBTELOVIMAB 175 MG/2 ML VIAL IV (15:29)
[2022-05-27] MEDS: 0.9% Saline Lock 10 ML Syringe IV ×2 (15:29→15:32)
[2022-05-27 15:58] VITALS: BP 101/47; PULSE 78; RESP 16; TEMP 37.1; O2SAT 94
[2022-05-27 16:30] VITALS: BP 99/48; PULSE 70; RESP 18; TEMP 37.2; O2SAT 94
== END 2022-05-27 16:32 | disposition home or self-care (01) ==
LOC: MS3OUT 14:17 → MS2 14:18
PROVIDERS: PCP Internal Medicine; Referring Provider Internal Medicine Pulmonary Disease; Visit Provider Internal Medicine Pulmonary Disease
DX: U07.1 COVID-19 (principal)
CPT/HCPCS: M0222; Q0222; A4216

== ENCOUNTER → 2022-07-17 | Outpatient (CLI) | payer BC, SELFPAY ==
[2022-07-17 08:51] VITALS: BP 128/76; PULSE 63; TEMP 35.9; O2SAT 94
== END | disposition home or self-care (01) ==
LOC: MEDOUTP 08:43
PROVIDERS: PCP Internal Medicine; Referring Provider Internal Medicine; Visit Provider Internal Medicine
DX: M81.0 Age-related osteoporosis without current pathological fracture (principal)

== ENCOUNTER → 2022-09-11 | Outpatient (CLI) | payer BC, SELFPAY ==
[2022-09-11 15:13] LABS: Erythrocyte Sedimentation Rate 7 mm/hr (0-20)
[2022-09-11 15:16] LABS: Absolute Neutrophil Count 9.1 X10^3/uL (2.0-7.7); Basophil# 0.09 X10^3/uL; Basophil% 0.8 % (0-1); Eosinophil# 0.26 X10^3/uL; Eosinophils% 2.3 % (0-5); Hematocrit 49.7 % (40-54); Hemoglobin 15.5 g/dL (13.0-16.5); Lymphocyte % 5.4 % (19-41); Mean Corp Hgb Conc 31.2 g/dL (32-36); Mean Corpuscular Hgb 29.9 pg (27.0-32.0); Mean Corpuscular Volume 95.8 fL (80-94); Mean Platelet Vol. 10.2 fl (6.2-12.0); Monocyte# 0.89 X10^3/uL; NRBC Flagged by Analyzer 0 % (0-5); Neutrophil # 9.12 X10^3/uL (2.7-7.7); Neutrophil % 82.1 % (47-70); POSITIVE DIFFERENTIAL YES; Platelet Count 312 K/mm3 (150-450); RBC Distribution Width SD 53.1 fl (35.1-43.9); Red Blood Count 5.19 M/mm3 (4.6-6.2); White Blood Count 11.1 K/mm3 (4.4-11.0)
[2022-09-11 15:22] LABS: Differential Indicated SCAN CRITERIA MET
[2022-09-11 15:31] LABS: AST(SGOT) 14 U/L (15-37); Alanine Aminotransfer ALT/SGPT 21 U/L (16-61); Albumin, Serum 3.6 g/dL (3.2-5.0); Alkaline Phosphatase 67 U/L (45-117); Bilirubin, Direct 0.16 mg/dL (0.00-0.30); CRP < 2.90 mg/L (0.0-3.0); Globulin 3.7 g/dL (2.2-4.2); Protein, Total 7.3 g/dL (6.4-8.2)
[2022-09-11 15:42] LABS: Differential Comment SCANNED
== END | disposition home or self-care (01) ==
LOC: MTLAB 12:33
PROVIDERS: PCP Internal Medicine; Referring Provider Internal Medicine Pulmonary Disease; Visit Provider Internal Medicine Pulmonary Disease
DX: U07.1 COVID-19 (principal)
CPT/HCPCS: 36415; 80076; 85025; 85652; 86140

== ENCOUNTER 2022-10-09 15:13 | Outpatient (CLI) | payer BC, SELFPAY ==
--- NOTE | 2022-10-09 15:16 | RAD_ITS ---
STUDY: X-RAY CHEST REASON FOR EXAM: Male, 71 years old. COVID. TECHNIQUE: PA and lateral views of the chest. COMPARISON: October 20, 2021. FINDINGS: Lungs well expanded. There is colonic interstitial changes of the lung bases without new infiltrate or mass. There is no demonstrated pleural abnormality. Normal size heart. Normal mediastinum and tete. Normal visualized pulmonary arteries. Normal visualized aortic arch and descending thoracic aorta. There are diffuse degenerative changes of the visualized thoracic spine. There is degenerative osteoarthritis of the bilateral shoulders. There is no demonstrated abnormality of the visualized soft tissue structures of the upper abdomen. RAD/Chest PA and Lateral IMPRESSION: No acute cardiopulmonary disease or interval change. Electronically Signed: Rainer Barnes DO at 20:37 EST ,
[2022-10-09 18:02] LABS: Erythrocyte Sedimentation Rate 8 mm/hr (0-20)
[2022-10-09 18:13] LABS: AST(SGOT) 12 U/L (15-37); Alanine Aminotransfer ALT/SGPT 21 U/L (16-61); Albumin, Serum 3.5 g/dL (3.2-5.0); Alkaline Phosphatase 66 U/L (45-117); Bilirubin, Direct 0.16 mg/dL (0.00-0.30); CRP < 2.90 mg/L (0.0-3.0); Globulin 3.6 g/dL (2.2-4.2); Protein, Total 7.1 g/dL (6.4-8.2)
== END 2022-10-09 23:59 | disposition home or self-care (01) ==
LOC: MTLAB 15:15
PROVIDERS: PCP Internal Medicine; Referring Provider Internal Medicine Pulmonary Disease; Visit Provider Internal Medicine Pulmonary Disease
DX: U07.1 COVID-19 (principal); J84.116 Cryptogenic organizing pneumonia; R06.00 Dyspnea, unspecified
CPT/HCPCS: 36415; 71046; 80076; 85652; 86140

== ENCOUNTER → 2023-01-27 | Outpatient (CLI) | payer OTHER, SELFPAY ==
--- NOTE | 2023-01-27 15:34 | RAD_ITS ---
STUDY: X-RAY CHEST REASON FOR EXAM: Male, 72 years old. COUGH TECHNIQUE: PA and lateral views of the chest. COMPARISON: Comparison is made with prior study dated October 09, 2022. FINDINGS: Since prior study, there has been a progression in the interstitial markings with areas of confluence involving both lung bases more prominent on the left side. This is suggestive of a progressive chronic interstitial fibrosis. There is no demonstrated pleural abnormality. Normal size heart. Normal mediastinum and tete. Normal visualized pulmonary arteries. There is atherosclerotic tortuosity of the aortic arch and descending thoracic aorta. There are diffuse degenerative changes of the visualized thoracic spine. Normal visualized ribs, clavicles, and shoulders. There is no demonstrated abnormality of the visualized soft tissue structures of the upper abdomen. RAD/Chest PA and Lateral IMPRESSION: Findings suggestive of progressive scarring at the lung bases worse on the left lung base. Electronically Signed: Harinder Melton MD at 15:58 EST ,
== END | disposition home or self-care (01) ==
PROVIDERS: PCP Internal Medicine; Referring Provider Internal Medicine; Visit Provider Internal Medicine
DX: R05.9 Cough, unspecified (principal)
CPT/HCPCS: 71046

== ENCOUNTER → 2023-01-29 | Outpatient (CLI) | payer OTHER, SELFPAY | END | disposition home or self-care (01) | LOC: LABSPEC 14:01 | PROVIDERS: PCP Internal Medicine; Referring Provider Internal Medicine Pulmonary Disease; Visit Provider Internal Medicine Pulmonary Disease | DX: R05.9 Cough, unspecified (principal) | CPT/HCPCS: 87070; 87205 ==

== ENCOUNTER → 2023-02-16 | Outpatient (CLI) | payer OTHER, SELFPAY ==
--- NOTE | 2023-02-16 08:38 | US_ITS ---
STUDY: ABDOMINAL ULTRASOUND - RIGHT UPPER QUADRANT REASON FOR VISIT: Male, 72 years old fatty liver TECHNIQUE: Ultrasound evaluation of the right upper quadrant was performed with real-time and static ozuna-scale imaging. TECHNICAL QUALITY: Adequate. COMPARISON: Comparison is made with prior study dated April 14, 2022. FINDINGS: Liver: The liver measures 15.4 cm. There is increased echogenicity consistent with fatty infiltration. The bile ducts are within normal limits. There is hepatic color flow. The direction of portal flow is hepatopetal. There is no demonstrated mass lesion. Gallbladder: Normal distended gallbladder. The gallbladder wall measures 2.0 mm. There is a negative sonographic Pineda''s sign. There is no pericholecystic fluid. There are no gallstones. Ringdown artifact in the wall of the gallbladder suggestive of adenomyomatosis. This is unchanged. Common Bile Duct (C.B.D.): The common bile duct measures 3 mm. Pancreas: There is nonvisualization of the pancreas due to overlying bowel gas. Right Kidney: Normal size of the right kidney. The right kidney measures 12 cm x 6.3 cm x 5.7 cm. Normal renal cortex. The right cortex measures 1.4 cm. There is a 5.4 cm x 4.6 x 5.4 cm renal cyst. There is no right hydronephrosis. There are 2, nonobstructive intrarenal calculi. IMPRESSION: Fatty fixation of the liver. Findings suggestive of adenomyomatosis of the gallbladder wall. Right renal cyst. Nonobstructive right intrarenal calculus. Electronically Signed: Harinder Melton MD at 15:31 EDT , STUDY: ABDOMINAL ULTRASOUND - ELASTOGRAPHY REASON FOR VISIT: Male, 72 years old. Fatty infiltration of the liver. TECHNIQUE: Liver stiffness measurements were obtained on a Samsung RS 85 ultrasound machine using a CA 1-7 probe following the SRU guidelines. 3 measurements were obtained using a 2-D-SWE method. TheIQR/M was 22 % suggesting a quality data set. TECHNICAL QUALITY: Adequate. COMPARISON: Comparison is made with prior study done earlier today. FINDINGS: Liver: Fatty infiltration of the liver. Median liver stiffness measured 7.2 kPa. US/ABD Limited w/ Elastography IMPRESSION: Liver stiffness measures 7.2 kPa compatible with F2-F3 (Mild to moderate liver fibrosis) Metavir score. Electronically Signed: Harinder Melton MD at 15:32 EDT ,
== END | disposition home or self-care (01) ==
LOC: US 08:37
PROVIDERS: PCP Internal Medicine; Referring Provider Internal Medicine; Visit Provider Internal Medicine
DX: K76.0 Fatty (change of) liver, not elsewhere classified (principal)
CPT/HCPCS: 76705; 76981

== ENCOUNTER → 2023-04-09 | Outpatient (CLI) | payer OTHER, SELFPAY | END | disposition home or self-care (01) | PROVIDERS: PCP Internal Medicine; Referring Provider Internal Medicine Pulmonary Disease; Visit Provider Internal Medicine Pulmonary Disease | DX: R09.02 Hypoxemia (principal); R06.02 Shortness of breath ==

== ENCOUNTER → 2023-04-12 | Outpatient (CLI) | payer OTHER, SELFPAY ==
--- NOTE | 2023-04-12 13:07 | CT_ITS ---
EXAM: CT ANGIOGRAPHY CHEST WITHOUT AND WITH INTRAVENOUS CONTRAST CLINICAL INDICATION: PRE OP, SOB,HYPOXENIA TECHNIQUE: Helically acquired angiography images were obtained of the chest without and with intravenous contrast. This CT exam was performed using one or more of the following dose reduction techniques: automated exposure control, adjustment of the mA and/or kV according to patient size, and/or use of iterative reconstruction technique. MIP reconstructed images were created and reviewed. CONTRAST: IV 100mL Isovue-370 RADIATION DOSE: CTDIvol: 4.75, 13.54 mGy, DLP = 395.02 mGy-cm. COMPARISON: July 19, 2021. FINDINGS: PULMONARY ARTERIES: Unremarkable. Normal in caliber. No evidence of pulmonary embolism. AORTA: Unremarkable. Normal in caliber. No evidence of dissection. GREAT VESSELS OF AORTIC ARCH: Unremarkable. Normal in caliber. No evidence of dissection. LUNGS AND PLEURAL SPACES: Peripheral groundglass opacities and interstitial thickening. Mild bronchiectasis in the posterior-medial lung bases. Small irregular spiculated groundglass opacity of roughly 1 cm x 0.8 cm at the right upper lobe laterally, and a zone of more pronounced groundglass opacity on the prior exam. No obvious solid nodules. Mild mediastinal lipomatosis. No pleural effusion or thickening. No pneumothorax. HEART: Moderate coronary artery calcifications in the proximal coronary arteries. No intracardiac filling defect. Heart size is normal. No pericardial effusion. MEDIASTINUM: Stable borderline mediastinal lymph nodes, including 1.4 cm short axis right paratracheal node. Esophagus is unremarkable. No hiatal hernia. THYROID: Well-circumscribed hypodense 2.2 cm x 1.4 cm left thyroid lesion, there was smaller but more cystic-appearing 1.2 cm x 1.2 cm lesion in this location on prior exam. BONES/JOINTS: Unremarkable. No suspicious lytic or blastic abnormality. GALLBLADDER AND BILE DUCTS: Suspicion of mild soft tissue stranding around the gallbladder, it is not fully included, estimated wall at least 3 mm. Mild fullness of the distal pancreas, the tail is 2.5 cm, partially included body at least 2.3 cm. The common duct, gallbladder and proximal pancreas are not included. CT/CTA Chest W/WO Contrast IMPRESSION: 1. Larger 2.2 cm well-circumscribed hypodense left thyroid lesion compared to 2020, not obviously simple cyst. Consider thyroid ultrasound for further evaluation unless recently evaluated. 2. Interstitial and groundglass changes and mild bronchiectasis in the lung bases. The groundglass opacities superior mildly-moderately improved compared to prior exam. 3. Coronary artery calcifications. 4. No evidence of PE or aortic aneurysm or dissection. 5. Upper abdomen is not fully included. Electronically Signed: Brenda Miller MD at 8:44 EDT ,
[2023-04-12 13:50] LABS: EGFR FINGERSTICK > 60.0000 mL/min (>60)
== END | disposition home or self-care (01) ==
PROVIDERS: PCP Internal Medicine; Referring Provider Internal Medicine Pulmonary Disease; Visit Provider Internal Medicine Pulmonary Disease
DX: Z01.811 Encounter for preprocedural respiratory examination (principal); R06.02 Shortness of breath; R09.02 Hypoxemia
CPT/HCPCS: 71275; Q9967

== ENCOUNTER 2023-04-14 11:53 | Day surgery (SDC) | payer OTHER, SELFPAY ==
[2023-04-14] VITALS (9 sets, daily range): BP systolic 85–131; BP diastolic 69–79; PULSE 73–94; RESP 16–24; TEMP 37–37.7; O2SAT 93–96; BMI 26.9
--- NOTE | 2023-04-14 | FLU_PTH ---
PATIENT: YARON BUTLER LOC: EN U#:[id number] AGE/SX: 72/M ROOM: RE04/14/[address]: Dr. Chuckie Landon MD : 1950 BED: DIS: 04/14/2023 SPEC #: [id number] RECD: 04/14/23 15:42 STATUS: KAITLIN RECherrie #: [id number] STANLEY: 04/14/23 00:[address]: Chuckie Landon V DEPT: CYTOLOGY RECD BY: Izabella Hernandez ENTERED: 04/15/23 08:56 SP TYPE: Fluid OTHR DR: Dr. Tanya Pettit DO Tissues: Bronchus of right upper lobe Procedures: PC (control) Special Stain Group II Special Stain Group I Surgery Specimen Level IV AFB Stain (control) GMS Stain (control) Cytospin Fluid HEADER OPERATION: Bronchoscopy (MAC) with BAL PRE-OP DIAGNOSIS: Cryptogenic organizing pneumonia; allergic rhinitis; bronchiectasis with acute exacerbation TISSUE SUBMITTED: Right upper lobe lung fluid DIAGNOSIS CYTOLOGY Right upper lobe lung fluid, BAL (cytospin and cell block): Negative for malignant cells. Acute inflammation. See comment. JOHN:griselda 04/16/2023 COMMENT Special stains for acid fast bacilli, fungi and pneumocystis carinii are negative for organisms; matched controls are appropriate. CYTOLOGY STUDY Slides are reviewed. CYTOLOGY GROSS Received is 40 ml of light garnett cloudy fluid labeled with the patient's name and and designated per the requisition as RUL. Submitted for cytology preparation including cell block. / griselda 04/15/2023 TC:2 CPT: 51580, 53040, 52698 x3
[2023-04-14] MEDS: Lactated Ringers 1,000 ML 15 ML IV (12:28)
[2023-04-14] MEDS: Lidocaine Jelly 2% 20 ML Syringe (URO-JET) 1 APPLIC (13:30)
[2023-04-14] MEDS: Phenylephrine 0.25% 15 ML NASAL.SRY 15 SPRAY NASAL (13:30)
[2023-04-14] MEDS: Lidocaine 2% (5ml sdv) 5 ML VIAL.MPF (13:30)
--- NOTE | 2023-04-14 13:49 | OP.BRONCH_ITS ---
Patient Name: Shiva Verdugo Procedure Date: 04/14/2023 1:06 PM Date of : 1950 Age: 72 Procedure: Bronchoscopy Indications: Interstitial lung disease Providers: Chuckie Landon MD Medicines: Lidocaine 2% Nebulizer 10 mL Complications: No immediate complications Procedure: Pre-Anesthesia Assessment: - A History and Physical has been performed. The patient's medications, allergies and sensitivities have been reviewed. - The risks and benefits of the procedure and the sedation options and risks were discussed with the patient. All questions were answered and informed consent was obtained. - Mental Status Examination: alert and oriented. Airway Examination: normal oropharyngeal airway. Respiratory Examination: bibasilar crackles. CV Examination: After I obtained informed consent, the scope was passed under direct vision. Throughout the procedure, the patient's blood pressure, pulse, and oxygen saturations were monitored continuously. The bronchoscope was introduced through the mouth and advanced to the tracheobronchial tree of both lungs. The procedure was accomplished without difficulty. Moderate Sedation: An independent trained observer was present and continuously monitored the patient. Findings: The oropharynx appears normal. The larynx appears normal. The vocal cords appear normal. The subglottic space is normal. The trachea is of normal caliber. The jarad is sharp. The tracheobronchial tree was examined to at least the first subsegmental level. Bronchial mucosa and anatomy are normal; there are no endobronchial lesions, and no secretions. Bronchoalveolar lavage was performed in the RUL anterior segment (B3) of the lung and sent for cell count, bacterial culture, viral smears & culture, and fungal & AFB analysis and cytology. 120 mL of fluid were instilled. 40 mL were returned. The return was cloudy. There were no mucoid plugs in the return fluid. Impression: - Interstitial lung disease - The airway examination was normal. - Bronchoalveolar lavage was performed. Recommendation: - Await test results. Procedure Code(s): --- Professional --- 24971, Bronchoscopy, rigid or flexible, including fluoroscopic guidance, when performed; with bronchial alveolar lavage Diagnosis Code(s): --- Professional --- J84.9, Interstitial pulmonary disease, unspecified CPT copyright 2017 [employer]. All rights reserved. The codes documented in this report are preliminary and upon respiratory assistant review may be revised to meet current compliance requirements. MD Chuckie Henderson MD 04/14/2023 1:48:59 PM This report has been signed electronically. Number of Addenda: 0 Note Initiated On: 04/14/2023 1:06 PM
[2023-04-14 15:51] LABS: Cytology, Body Fluid / CSF SEE PATHOLOGY REPORT
[2023-04-14 17:44] LABS: Appearance/Body Fluid SL CLDY; Color/Body Fluid COLORLESS; Source- Body Fluid BRONCHIAL LAVAGE
[2023-04-14 18:29] LABS: Red Cell Count/Body Fluid 88 /mm3
[2023-04-14 18:30] LABS: White Blood Count/Body Fluid 614 /mm3
[2023-04-14 18:52] LABS: Lymphocytes 9 %; Monocytes 17 %; Neutrophil (Segs) 69 %
[2023-04-14 18:53] LABS: Body Fluid QC Type(s) BF5Q; Macrophages 5 %
[2023-04-15 12:22] LABS: Pathologist Comment/Body Fluid Reviewed
== END 2023-04-14 15:07 | disposition home or self-care (01) ==
LOC: EN 11:53 → AC 11:55
PROVIDERS: PCP Internal Medicine; Referring Provider Internal Medicine Pulmonary Disease; Visit Provider Internal Medicine Pulmonary Disease
PROC: 0BJ08ZZ Inspection of Tracheobronchial Tree, Via Natural or Artificial Opening Endoscopic (ICD-10-PCS; CPT 31622; principal; 2023-04-14 12:45)
DX: J84.9 Interstitial pulmonary disease, unspecified (principal)
CPT/HCPCS: 31624; 87015; 87070; 87077; 87101; 87116; 87205; 87206; 88108; 88305; 88312; 88313; 89050; J7120; J2405

== ENCOUNTER → 2023-04-22 | Outpatient (CLI) | payer OTHER, SELFPAY ==
--- NOTE | 2023-04-22 14:18 | US_ITS ---
STUDY: THYROID ULTRASOUND REASON FOR EXAM: Male, 72 years old. Changing thyroid nodule -- changing thyroid nodule TECHNIQUE: Ultrasound evaluation of the thyroid was performed with real-time and static ozuna-scale imaging. COMPARISON: Comparison is made with prior CT scan of the chest dated April 12, 2023. FINDINGS: RIGHT LOBE: The right lobe of the thyroid gland is enlarged and measures 5.4 cm x 2.1 cm x 2.2 cm. There is a heterogeneous echotexture. 4 mm x 4 mm x 4 mm well-defined hypoechoic nodule in the medial midportion of the right lobe. LEFT LOBE: The left lobe of the thyroid gland is enlarged and measures 5.2 cm x 2.4 cm x 2.0 cm. There is a heterogeneous echotexture. In the upper pole, there is a 2.1 cm x 1.3 cm x 0.8 cm solid nodule with vascularity. There is also evidence of a predominantly cystic nodule with debris in the lower pole measuring 2.1 cm x 1.3 cm x 1.6 cm there ISTHMUS: The isthmus measures 3 mm. The regional lymph nodes are normal. US/Thyroid IMPRESSION: Enlargement of both lobes of thyroid gland. Dominant solid mass in the left lobe of the thyroid. Biopsy recommended. Electronically Signed: Harinder Melton MD at 11:26 EDT ,
== END | disposition home or self-care (01) ==
LOC: US 14:17
PROVIDERS: PCP Internal Medicine; Referring Provider Internal Medicine; Visit Provider Internal Medicine
DX: E04.1 Nontoxic single thyroid nodule (principal)
CPT/HCPCS: 76536

== ENCOUNTER → 2023-05-21 | Outpatient (CLI) | payer OTHER, SELFPAY ==
--- NOTE | 2023-05-21 | ASPS_PTH ---
PATIENT: YARON BUTLER LOC: [facility] U#:[id number] AGE/SX: 72/M ROOM: RE05/21/[address]: Dr. Chuckie Sneed MD : 1950 BED: DIS: 05/21/2023 SPEC #: [id number] RECD: 05/21/23 15:55 STATUS: KAITLIN RECherrie #: [id number] STANLEY: 05/21/23 00:[address]: Chuckie Sneed DEPT: CYTOLOGY RECD BY: Amairani Michaels ENTERED: 05/25/23 23:06 SP TYPE: ASPIRATION OTHR DR: Dr. Tanya Pettit DO Tissues: Thyroid gland, NOS Procedures: Special Stain Group II Cytology Other Comments: @ Specimen number changed from [id number] to [id number] @ on 05/26/23 at 0920 by RGOOD. HEADER OPERATION: Left thyroid fine needle aspiration PRE-OP DIAGNOSIS: Left thyroid nodule TISSUE SUBMITTED: Left thyroid nodule x6 slides DIAGNOSIS CYTOLOGY Left thyroid nodule, fine needle aspiration (smears): Consistent with benign follicular/colloid nodule ([place] Category II). Adequate for evaluation. See comment. JOHN:griselda 05/26/2023 COMMENT Correlation with clinical, radiologic findings and appropriate follow up are necessary. The [place] System for thyroid diagnostic categorization was used in the evaluation of this case. CYTOLOGY STUDY Slides are reviewed. CYTOLOGY GROSS Received are six smears labeled with the patient's name and designated per the requisition as left thyroid nodule. Submitted for staining. / griselda 05/24/2023 TC:5 CPT: 56539
== END | disposition home or self-care (01) ==
LOC: LABSPEC 16:12
PROVIDERS: PCP Internal Medicine; Referring Provider Surgery; Visit Provider Surgery
DX: E04.1 Nontoxic single thyroid nodule (principal)
CPT/HCPCS: 88161; 88313

== ENCOUNTER → 2023-05-24 | Outpatient (CLI) | payer OTHER, SELFPAY ==
[2023-05-24 16:51] LABS: Hematocrit 47.4 % (40-54); Hemoglobin 15.3 g/dL (13.0-16.5); Mean Corp Hgb Conc 32.3 g/dL (32-36); Mean Corpuscular Volume 92.9 fL (80-94); Mean Platelet Vol. 9.3 fl (6.2-12.0); Platelet Count 238 K/mm3 (150-450); RBC Distribution Width CV 15.3 % (11.6-14.6); RBC Distribution Width SD 51.8 fl (35.1-43.9); White Blood Count 11.1 K/mm3 (4.4-11.0)
[2023-05-24 17:35] LABS: AST(SGOT) 11 U/L (15-37); Alanine Aminotransfer ALT/SGPT 24 U/L (16-61); Albumin, Serum 3.2 g/dL (3.2-5.0); Alkaline Phosphatase 49 U/L (45-117); Bilirubin, Direct 0.21 mg/dL (0.00-0.30); Globulin 3.3 g/dL (2.2-4.2); Protein, Total 6.5 g/dL (6.4-8.2)
== END | disposition home or self-care (01) ==
LOC: LAB 16:07
PROVIDERS: PCP Internal Medicine; Referring Provider Internal Medicine Pulmonary Disease; Visit Provider Internal Medicine Pulmonary Disease
DX: J84.116 Cryptogenic organizing pneumonia (principal); J47.1 Bronchiectasis with (acute) exacerbation
CPT/HCPCS: 36415; 80076; 85027

== ENCOUNTER → 2023-07-19 | Outpatient (CLI) | payer OTHER, SELFPAY ==
[2023-07-19 10:07] LABS: Hematocrit 48.3 % (40-54); Hemoglobin 15.1 g/dL (13.0-16.5); Mean Corp Hgb Conc 31.3 g/dL (32-36); Mean Corpuscular Hgb 30.3 pg (27.0-32.0); Mean Corpuscular Volume 96.8 fL (80-94); Mean Platelet Vol. 9.7 fl (6.2-12.0); Platelet Count 206 K/mm3 (150-450); RBC Distribution Width CV 15.9 % (11.6-14.6); RBC Distribution Width SD 56.2 fl (35.1-43.9); Red Blood Count 4.99 M/mm3 (4.6-6.2); White Blood Count 10.6 K/mm3 (4.4-11.0)
[2023-07-19 10:43] LABS: AST(SGOT) 9 U/L (15-37); Alanine Aminotransfer ALT/SGPT 24 U/L (16-61); Albumin, Serum 3.5 g/dL (3.2-5.0); Alkaline Phosphatase 48 U/L (45-117); Bilirubin, Direct 0.24 mg/dL (0.00-0.30); Globulin 3.1 g/dL (2.2-4.2); Protein, Total 6.6 g/dL (6.4-8.2)
== END | disposition home or self-care (01) ==
LOC: MTLAB 09:11
PROVIDERS: PCP Internal Medicine; Referring Provider Internal Medicine Pulmonary Disease; Visit Provider Internal Medicine Pulmonary Disease
DX: J84.116 Cryptogenic organizing pneumonia (principal)
CPT/HCPCS: 36415; 80076; 85027

== ENCOUNTER 2023-09-02 15:09 | Emergency (ER) | payer OTHER, SELFPAY ==
[2023-09-02 15:09] VITALS: BP 100/89; PULSE 81; RESP 18; TEMP 36.6; O2SAT 97
[2023-09-02 15:10] VITALS: BMI 25.8
--- NOTE | 2023-09-02 16:18 | EDS_ITS ---
HPI History of Present Illness Chief Complaint: Back [facility] Medical History (Updated 09/02/23 @ 16:06 by Liliana Bronson) Abnormal cardiac CT angiography Antisynthetase syndrome Asthma Atrial fibrillation Atrial fibrillation Back pain Blackout BOOP (bronchiolitis obliterans with organizing pneumonia) BPH (benign prostatic hyperplasia) Cardiology follow-up encounter Chronic cough COVID-19 Easy bruising Essential hypertension Fatty liver Gastric reflux GERD (gastroesophageal reflux disease) High cholesterol History of atrial fibrillation History of echocardiogram History of stress test Hoarseness Hypertension Injury of head and neck Interstitial lung disease Kidney stones Lung nodule Mixed hyperlipidemia Non-smoker On home oxygen therapy Osteoporosis RBBB (right bundle branch block) Vasovagal syncope Wears glasses Home Medications cyanocobalamin (vitamin B-12) 500 mcg tablet 500 mcg PO DAILY 07/14/21 [History Last Taken Unknown] denosumab 60 mg/mL subcutaneous syringe (Prolia) 60 mg subcut [id number] 07/14/21 [History Last Taken Unknown] pantoprazole 40 mg tablet,delayed release 40 mg PO DAILY 07/14/21 [History Last Taken Unknown] ascorbic acid (vitamin C) 500 mg tablet 500 mg PO DAILY 01/01/22 [History Last Taken Unknown] budesonide 0.5 mg/2 mL suspension for nebulization (Pulmicort) 0.5 mg inhalation BID 01/01/22 [History Last Taken Unknown] cetirizine 10 mg tablet (Zyrtec) 10 mg PO DAILY PRN allergies 01/01/22 [History Last Taken Unknown] cholecalciferol (vitamin D3) 75 mcg (3,000 unit) tablet 150 mcg PO DAILY 01/01/22 [History Last Taken Unknown] fluticasone propionate 50 mcg/actuation nasal spray,suspension (Flonase Allergy Relief) 1 spray intranasal DAILY 01/01/22 [History Last Taken Unknown] lactobacillus combination no.9 4 billion cell capsule (Adult 50 Plus Probiotic) 4,000 mmu cells PO DAILY 01/01/22 [History Last Taken Unknown] sulfamethoxazole 400 mg-trimethoprim 80 mg tablet 1 tab PO .3XW 01/01/22 [History Last Taken Unknown] zinc gluconate 30 mg tablet 30 mg PO DAILY 01/01/22 [History Last Taken Unknown] diltiazem HCl 120 mg capsule,extended release 24 hr 120 mg PO DAILY #90 caps 12/08/22 [Rx Last Taken 04/14/23] apixaban 5 mg tablet (Eliquis) 5 mg PO BID #60 tabs 01/05/23 [Rx Last Taken 04/12/23] metoprolol succinate 25 mg tablet,extended release 24 hr 25 mg PO DAILY 04/13/23 [History Last Taken Unknown] montelukast 10 mg tablet (Singulair) 10 mg PO DAILY 05/12/23 [History Last Taken Unknown] mycophenolate mofetil 500 mg tablet 3,000 mg PO BID AUTOIMMUNE DISEASE 05/12/23 [History Last Taken Unknown] rosuvastatin 5 mg tablet 5 mg PO DAILY 05/12/23 [History Last Taken Unknown] prednisone 1 mg tablet 20 mg PO DAILY 06/03/23 [History Last Taken Unknown] Allergy/AdvReac Type Severity Reaction Status Date / Time monosodium glutamate Allergy Abd Verified 09/02/23 15:11 cramps/diarrhea Penicillins [PCN] Allergy Rash Verified 09/02/23 15:11 allopurinol AdvReac Unknown cough Verified 09/02/23 15:11 morphine AdvReac Other Verified 09/02/23 15:11 tamsulosin [From Flomax] AdvReac Other Verified 09/02/23 15:11 Family History Grandfather CVA (cerebral vascular accident) Grandmother Congestive heart failure Grandmother Cardiac pacemaker in situ Mother Heart disease Hypertension Father Heart disease Cardiac arrhythmia Surgical History History of inguinal hernia repair History of umbilical hernia repair Hx of cystoscopy Social History household members: spouse Smoking Status: Never smoker alcohol intake: current details: Rare substance use type: does not use caffeine: Yes Type: coffee Number of servings: 1 EXAM Physical Exam Const Vital Signs: 09/02/23 15:09 Temperature 97.8 F Temperature Source Temporal Pulse Rate 81 Respiratory Rate 18 Blood Pressure 100/89 H Blood Pressure Mean 92 Pulse Ox 97 Oxygen Delivery Method Room Air MDM MDM MDM Narrative Medical decision making narrative: HISTORY OF PRESENT ILLNESS: 72-year-old M presents with back pain. Notes he was recently pulling luggage. States he felt a twinge in the right side of his back that is worsened with movement. States he visit his chiropractor this did not help. Fall or other trauma. Denies any back surgery. Denies history of diabetes or renal failure. Patient denies any saddle anesthesia, urinary tension, bowel or bladder i ncontinence, lower extremity weakness, fever or IV drug use, no recent spinal manipulation or surgery, no recent urinary catheterization. REVIEW OF SYSTEMS: All other systems reviewed and are negative except as noted in the history of present illness. At least 10 review of systems reviewed and are negative except as noted in history of present illness. PHYSICAL EXAM: Nursing triage notes reviewed, Vital signs reviewed Constitutional: please see mdm HENT: MMM Eyes: Pupils equal round and reactive to light, Extraocular muscles intact Neck: No stridor, no JVD, full neck ROM Lungs: Clear to auscultation, No wheezing or rales. No increased work of breathing, no conversational dyspnea, no accessory muscle use, no nasal flaring. No respiratory distress noted Heart: Regular rate and rhythm, No murmurs, No rubs and No gallops, 2+ distal pulses (radial, femoral, posterior tibial) in all extremities Abdomen: Soft, there is no tenderness, rigidity, rebound or guarding, no obvious peritoneal signs, no palpable pulsatile abdominal masses, no auscultated abdominal bruit : No CVAT Extremities: No edema Back: No midline step-offs or deformities Neuro: Intact sensation L1-S1 dermatomal distributions. Intact 5/5 strength in hip flexion (T12-L3). Knee extension (L2-L4). Ankle dorsiflexion (L4-L5). Ankle plantar flexion (S1). Great toe extension (L5). 2+ patellar and Achilles DTRs. Skin: No rash or lesions noted MEDICAL DECISION MAKING: Chief Complaint: Back pain External records reviewed: Imaging studies reviewed: No recent advanced imaging of the axial skeleton noted Factors affecting care: A-fib on Eliquis, hyperlipidemia Social determinants of health: No IV drug use History obtained from others: none Consults: none ALL IMAGES (IF OBTAINED) HAVE BEEN PERSONALLY REVIEWED AND INTERPRETED BY MYSELF. [facility] Narrative: Patient was initially hemodynamically stable, afebrile, nontoxic-appearing. Exam without focal deficits. No midline step-offs deformities. TTP over paraspinal musculature. I considered the following differential diagnosis: Musculoskeletal back pain, space-occupying lesion of the spinal (epidural abscess, epidural hematoma), cauda equina, conus medullaris, fracture dislocation, AAA, nephrolithiasis, pyelonephritis, aortic dissection The patient presented complaining of back pain. There was no history of recent fall or trauma. There was no evidence to support genitourinary etiology. There is also no evidence to suggest vascular pathology such as AAA dissection. No fevers or other evidence to suspect infectious processes, abscess, osteomyelitis etc. The patient?s neurological exam is normal with normal motor and sensory. There is no saddle paresthesias reported and no bowel or bladder incontinence or retention. I suspect the pain is mechanical in nature. Clinical suspicion, plan of care and management was discussed with the patient. The patient was instructed to follow up with their health care provider. The patient was also instructed to return if the pain worsened, changed, or developed weakness or bowel or bladder trouble. The patient agreed with plan. I completed a structured, evidence-based clinical evaluation to screen for acute non-traumatic spinal emergencies. The patient has a normal detailed neurologic exam and red flag historical factors were negative. The evidence indicates that the patient is very low risk for an acute spinal emergency and this is consistent with my clinical intuition. The risk of further workup is higher than the likelihood of the patient having a spinal epidural abscess or other dangerous emergency spinal condition. It is, therefore, in the patient?s best interest not to do additional emergent testing at this time. Shared Decision-Making I have discussed with the patient my clinical impression and the result of an evidence-based clinical evaluation to screen for spinal epidural abscess and other spinal emergencies, as well as the risk of further testing and hospitalization. The evidence shows that the risk for an acute spinal emergency is less than 1%. Although the risk of an acute spinal emergency has not been completely eliminated, the risks of further testing likely exceed any potential benefit, and the patient agrees with not pursuing further emergent evaluation for causes of back pain at this time. The patient and/or family, caregivers express understanding. The patient and/or family, caregivers agrees with the plan. Total critical care time today provided was at least 0 minutes. This excludes separately billable procedures. Critical care time (if documented) is secondary to the patient having high probability of clinically significant/life threatening deterioration in the patient's condition which required my urgent intervention. Impression: 1. Musculoskeletal back pain Disposition: Discharge Albin Diaz DO Discharge Plan Triage Chief Complaint: Back ED Provider: Albin Diaz Dx/Rx/DC Orders Instructions: ED Back Spasm, No Trauma Prescriptions: No Action pantoprazole 40 mg tablet,delayed release (DR/EC) 40 mg PO DAILY Prolia 60 mg/mL syringe 60 mg subcut [id number] cyanocobalamin (vitamin B-12) 500 mcg tablet 500 mcg PO DAILY zinc gluconate 30 mg tablet 30 mg PO DAILY cholecalciferol (vitamin D3) 75 mcg (3,000 unit) tablet 150 mcg PO DAILY sulfamethoxazole-trimethoprim 400-80 mg tablet 1 tab PO .3XW ascorbic acid (vitamin C) 500 mg tablet 500 mg PO DAILY Adult 50 Plus Probiotic 4 billion cell capsule 4,000 mmu cells PO DAILY Rx Instructions: administer with a meal budesonide [Pulmicort] 0.5 mg/2 mL suspension for nebulization 0.5 mg inhalation BID cetirizine [Zyrtec] 10 mg tablet 10 mg PO DAILY PRN (Reason: allergies) fluticasone propionate [Flonase Allergy Relief] 50 mcg/actuation spray,suspension 1 spray intranasal DAILY Rx Instructions: administer into each nostril mycophenolate mofetil 500 mg tablet 3,000 mg PO BID prednisone 1 mg tablet 20 mg PO DAILY rosuvastatin 5 mg tablet 5 mg PO DAILY montelukast [Singulair] 10 mg tablet 10 mg PO DAILY metoprolol succinate 25 mg tablet extended release 24 hr 25 mg PO DAILY diltiazem HCl 120 mg capsule,extended release 24hr 120 mg PO DAILY Qty: 90 3RF Eliquis 5 mg tablet 5 mg PO BID Qty: 60 11RF Primary Care Provider: Tanya Pettit Referrals: Tanya Pettit DO [Primary Care Provider] - Activity Restrictions/Additional Instructions: Thank you for trusting us with your care today! Please take Tylenol (2 pills, 650 mg), ibuprofen (2 pills, 400 mg) every 6 hours as needed for pain and fever control. Please go to a local pharmacy or drugstore obtain Salonpas lidocaine patches as these can improve pain as well. Please continue take your prednisone daily. Please return to the emergency department if your symptoms change or worsen. Specifically you develop bowel or bladder incontinence, decree sensation on your private area, loss of movement or sensation in your lower extremities or if you notice difficulty with urination. Please follow with your primary care physician for further outpatient evaluation and management. Disposition Disposition: Home, Self Care
[2023-09-02] MEDS: Ibuprofen 200 MG Tablet 400 MG PO (17:10)
[2023-09-02] MEDS: Lidocaine 5% Patch 1 PATCH TOPICAL (17:10)
[2023-09-02] MEDS: Acetaminophen 325 MG Tablet PO (17:10)
[2023-09-02] MEDS: LORazepam 1 MG Tablet PO (17:11)
[2023-09-02 17:55] VITALS: BP 118/74; PULSE 72; RESP 16
== END 2023-09-02 17:56 | disposition home or self-care (01) ==
PROVIDERS: Emergency Provider Emergency Medicine; PCP Internal Medicine; Visit Provider Emergency Medicine
DX: M54.9 Dorsalgia, unspecified (principal); I48.91 Unspecified atrial fibrillation; I10 Essential (primary) hypertension; E78.2 Mixed hyperlipidemia; Z99.81 Dependence on supplemental oxygen; M81.0 Age-related osteoporosis without current pathological fracture; K21.9 Gastro-esophageal reflux disease without esophagitis; Z79.899 Other long term (current) drug therapy; Z79.01 Long term (current) use of anticoagulants; X50.9XXA Other and unspecified overexertion or strenuous movements or postures, initial encounter
CPT/HCPCS: 99284; J7030; A4216

== ENCOUNTER → 2023-10-25 | Outpatient (CLI) | payer OTHER, SELFPAY ==
[2023-10-25 11:31] LABS: Absolute Lymphocyte Count 0.57 X10^3/uL (0.83-4.51); Basophil# 0.08 X10^3/uL; Basophil% 0.7 % (0-1); Eosinophil# 0.08 X10^3/uL; Eosinophils% 0.7 % (0-5); Hematocrit 50.1 % (40-54); Hemoglobin 15.2 g/dL (13.0-16.5); Lymphocyte # 0.57 X10^3/ul (0.83-4.51); Lymphocyte % 4.9 % (19-41); Mean Corp Hgb Conc 30.3 g/dL (32-36); Mean Corpuscular Hgb 29.5 pg (27.0-32.0); Mean Corpuscular Volume 97.3 fL (80-94); Mean Platelet Vol. 9.8 fl (6.2-12.0); Monocyte# 0.71 X10^3/uL; Monocyte% 6.1 % (0-10); NRBC Flagged by Analyzer 0 % (0-5); Neutrophil # 10.04 X10^3/uL (2.7-7.7); Neutrophil % 86.1 % (47-70); POSITIVE DIFFERENTIAL YES; Platelet Count 272 K/mm3 (150-450); RBC Distribution Width CV 14.6 % (11.6-14.6); RBC Distribution Width SD 52.3 fl (35.1-43.9); Red Blood Count 5.15 M/mm3 (4.6-6.2); White Blood Count 11.7 K/mm3 (4.4-11.0)
[2023-10-25 11:34] LABS: Differential Indicated SCAN CRITERIA MET
[2023-10-25 11:46] LABS: AST(SGOT) 11 U/L (15-37); Alanine Aminotransfer ALT/SGPT 19 U/L (16-61); Albumin, Serum 3.6 g/dL (3.2-5.0); Alkaline Phosphatase 64 U/L (45-117); Bilirubin, Direct 0.18 mg/dL (0.00-0.30); Globulin 3.3 g/dL (2.2-4.2); Protein, Total 6.9 g/dL (6.4-8.2)
== END | disposition home or self-care (01) ==
LOC: MTLAB 09:29
PROVIDERS: PCP Internal Medicine; Referring Provider Internal Medicine Pulmonary Disease; Visit Provider Internal Medicine Pulmonary Disease
DX: J84.116 Cryptogenic organizing pneumonia (principal)
CPT/HCPCS: 36415; 80076; 85025

== ENCOUNTER → 2023-12-07 | Outpatient (CLI) | payer OTHER, SELFPAY ==
--- NOTE | 2023-12-07 13:06 | RAD_ITS ---
STUDY: X-RAY - LUMBAR SPINE REASON FOR EXAM: Male, 73 years old. Low back pain -- low back pain TECHNIQUE: 4 view(s) of the lumbar spine were obtained. COMPARISON: None FINDINGS: Normal lumbar lordosis. There is no substantial scoliosis. There is a normal alignment of the vertebrae. There is multilevel endplate spondylosis of the lumbar vertebrae. There is multi-level degenerative disc disease with multi-level disc space narrowing. Facet joint osteoarthritis. There is atherosclerotic calcification of the abdominal aorta without a demonstrated aneurysm. There are multiple left intrarenal calculi. Small calculi are also seen in the right kidney. RAD/L/S Spine Min 4 Views IMPRESSION: Degenerative changes of the spine, as detailed above. Bilateral intrarenal calculi. Electronically Signed: Harinder Melton MD at 15:13 EST ,
== END | disposition home or self-care (01) ==
LOC: MTRAD 13:06
PROVIDERS: PCP Internal Medicine; Referring Provider Internal Medicine; Visit Provider Internal Medicine
DX: M54.50 Low back pain, unspecified (principal)
CPT/HCPCS: 72110

== ENCOUNTER → 2023-12-17 | Outpatient (CLI) | payer OTHER, SELFPAY ==
--- NOTE | 2023-12-17 14:52 | CDU_ITS ---
Reason For Study: Near Syncope Rt. Velocities/BP Lt. Velocities/BP Prox CCA 90.0/17.0 cm/sec. Prox CCA 99.2/29.8 cm/sec. Mid CCA 93.7/15.2 cm/sec. Mid CCA 78.7/20.1 cm/sec. Dist CCA 66.3/18.8 cm/sec. Dist CCA 75.9/20.1 cm/sec. Prox ICA 69.2/23.0 cm/sec. Prox ICA 50.9/17.7 cm/sec. Mid ICA 75.3/26.2 cm/sec. Mid ICA 49.1/20.3 cm/sec. Dist ICA 82.6/26.2 cm/sec. Dist ICA 57.5/21.6 cm/sec. Rt. ICA/CCA = 0.80. Lt. ICA/CCA = 0.6. Prox ECA 163.1/13.3 cm/sec. Prox ECA 108.3/11.5 cm/sec. Rt. Vert. 28.5/10.7 cm/sec. Lt. Vert. 40.0/11.6 cm/sec. Right Extracranial There is intimal thickening but no significant atherosclerotic plaque noted in the right common carotid artery. There is heterogeneous, irregular atherosclerotic plaque noted in the right internal carotid artery. There is heterogeneous, irregular atherosclerotic plaque noted in the right external carotid artery. Antegrade flow is noted in the right vertebral artery. Left Extracranial There is intimal thickening but no significant atherosclerotic plaque noted in the left common carotid artery. Non vascularized anechoic area measuring approximately 1.86cm x 2.54cm noted in Lt side of neck/Thyroid. There is heterogeneous, irregular atherosclerotic plaque noted in the left internal carotid artery. The left external carotid artery is not well visualized. Antegrade flow is noted in the left vertebral artery. Procedure Carotid Duplex 58263. This is a Carotid Duplex examination using B-mode, color flow and specral Doppler. The exam was diagnostic. The study was technically difficult. Exam performed in department. VL/Carotid Duplex Ultrasound Interpretation Summary Mild (<50%) stenosis right extracranial internal carotid. Mild (<50%) stenosis left extracranial internal carotid. Patent and antegrade vertebrals bilaterally. Non vascularized anechoic area measuring approximately 1.86cm x 2.54cm noted in left side of neck/thyroid Ordering Physician: Tanya Pettit Referring Physician: Tanya Pettit Performed By: Shorty Tim RVT
== END | disposition home or self-care (01) ==
LOC: CVS 14:51
PROVIDERS: PCP Internal Medicine; Referring Provider Internal Medicine; Visit Provider Internal Medicine
DX: R55 Syncope and collapse (principal)
CPT/HCPCS: 93880

== ENCOUNTER → 2023-12-20 | Outpatient (CLI) | payer OTHER, SELFPAY ==
--- NOTE | 2023-12-20 15:40 | CT_ITS ---
STUDY: CT ABDOMEN AND PELVIS WITHOUT CONTRAST REASON FOR EXAM: Male, 73 years old. STAT - traumatic ecchymosis of abd. wall. Pt on blood thinners. -- STAT - traumatic ecchymosis of abd. wall. Pt on blood thinners. RADIATION DOSAGE (If Supplied By Facility): CTDIvol = ( 16.58 ) mGy, DLP = ( 949.62 ) mGycm TECHNIQUE: Transaxial images were obtained from the dome of the diaphragm to the symphysis pubis without oral contrast, and without intravenous contrast. Sagittal and coronal images were reconstructed. Individualized dose optimization techniques were used for this CT. COMPARISON: Comparison is made with prior study dated April 13, 2021. FINDINGS: 7.4 mm noncalcified nodule in the peripheral lateral aspect of the left lower lobe. This has improved as compared to prior study. Coronary artery calcification. There is decreased attenuation of the liver consistent with steatosis. Normal gallbladder and extrahepatic biliary system. Normal spleen. Normal pancreas. Normal bilateral adrenal glands. Multiple bilateral nonobstructive intrarenal calculi. There is a 6.7 cm x 5.1 cm cyst in the inferior medial pole of the right kidney. There is also evidence of a 1.7 cm cyst in the anterior aspect of the left kidney. Normal visualized stomach. Normal small intestine. Normal colon. The appendix is visualized and appears normal. Normal abdominal aorta. Normal inferior vena cava. Normal retroperitoneum. Normal urinary bladder. Bilateral inguinal hernias containing fat more prominent on the right side. Normal osseous structures. CT/Abdomen/Pelvis without Cont IMPRESSION: No evidence of abdominal wall hematoma. Bilateral renal cysts. Nonobstructive bilateral intrarenal calculi. Electronically Signed: Harinder Melton MD at 15:53 EST ,
[2023-12-20 16:08] LABS: Absolute Lymphocyte Count 0.86 X10^3/uL (0.83-4.51); Absolute Neutrophil Count 10.9 X10^3/uL (2.0-7.7); Basophil# 0.12 X10^3/uL; Basophil% 0.9 % (0-1); Eosinophils% 1.5 % (0-5); Hematocrit 42.5 % (40-54); Lymphocyte # 0.86 X10^3/ul (0.83-4.51); Lymphocyte % 6.4 % (19-41); Mean Corp Hgb Conc 30.6 g/dL (32-36); Mean Corpuscular Hgb 29.4 pg (27.0-32.0); Mean Corpuscular Volume 96.2 fL (80-94); Mean Platelet Vol. 9.3 fl (6.2-12.0); Monocyte# 1.14 X10^3/uL; Monocyte% 8.5 % (0-10); NRBC Flagged by Analyzer 0 % (0-5); Neutrophil % 81.1 % (47-70); Platelet Count 405 K/mm3 (150-450); RBC Distribution Width CV 15.1 % (11.6-14.6); RBC Distribution Width SD 52.1 fl (35.1-43.9); Red Blood Count 4.42 M/mm3 (4.6-6.2); White Blood Count 13.4 K/mm3 (4.4-11.0)
[2023-12-20 16:59] LABS: ALB/GLOB Ratio 0.9 RATIO (0.9-2.4); AST(SGOT) 25 U/L (15-37); Alanine Aminotransfer ALT/SGPT 20 U/L (16-61); Albumin, Serum 3.4 g/dL (3.2-5.0); Alkaline Phosphatase 71 U/L (45-117); Anion Gap 7 (5-15); BUN 13 mg/dL (7-18); BUN/Creat Ratio 11.3 RATIO (10-20); Calcium,Total 9.7 mg/dL (8.5-10.1); Chloride 110 mmol/L (98-107); Creatinine, Serum 1.15 mg/dL (0.70-1.30); EST Glomerular Filtration Rate 67 mL/min (>60); Est Glom Filt Rate - Afr Amer 81 mL/min (>60); Globulin 3.8 g/dL (2.2-4.2); Glucose 88 mg/dL (74-106); Potassium 3.8 mmol/L (3.5-5.1); Protein, Total 7.2 g/dL (6.4-8.2); Sodium Level 143 mmol/L (136-145)
== END | disposition home or self-care (01) ==
PROVIDERS: PCP Internal Medicine; Referring Provider Internal Medicine; Visit Provider Internal Medicine
DX: S30.1XXA Contusion of abdominal wall, initial encounter (principal)
CPT/HCPCS: 36415; 74176; 80053; 85025

== ENCOUNTER → 2024-01-14 | Outpatient (CLI) | payer OTHER, SELFPAY ==
--- NOTE | 2024-01-14 11:38 | ECHOD_ITS ---
Reason For Study: Afib Procedure This was a 2D Doppler, Color Flow transthoracic echocardiogram. Exam performed in department. Left Ventricle Normal LV size. Left ventricular systolic function is normal. The estimated ejection fraction is 60 %. Stage 1 diastolic dysfunction. No regional wall motion abnormalities noted. Right Ventricle Normal RV size. Normal systolic function. Atria Normal left atrium. Normal right atrium. Mitral Valve There is mild mitral annular calcification. Tricuspid Valve Normal tricuspid valve. Mild to moderate (1-2+) tricuspid valve insufficiency. Pulmonary artery systolic pressure is 50 mmHg. Aortic Valve Trisinus/trileaflet aortic valve. Mild diffuse aortic valve thickening. Mild (1+) aortic valve insufficiency. Pulmonic Valve Normal pulmonic valve. Great Vessels Normal aortic root. The pulmonary artery is normal size. Normal inferior vena cava. Pericardium/Pleural No pericardial effusion. MMode/2D Measurements & Calculations LVIDd: 4.5 cm IVSd: 1.3 cm Ao root diam: 3.1 cm LVIDs: 2.4 cm LVPWd: 1.0 cm RVDd: 3.6 cm FS: 47.3 % LAV(MOD-bp): 40.2 ml LVAd ap4: 23.1 cm2 SV(MOD-sp4): 43.0 ml LAV(MOD-bp) Indexed: 19.7 ml/m2 LVLd ap4: 7.3 cm LAV(MOD-sp2): 39.3 ml EDV(MOD-sp4): 61.6 ml LAV(MOD-sp4): 40.0 ml EDV(sp4-el): 62.2 ml LVAs ap4: 11.3 cm2 LVLs ap4: 5.8 cm ESV(MOD-sp4): 18.6 ml ESV(sp4-el): 18.4 ml EF(MOD-sp4): 69.8 % EF(sp4-el): 70.4 % SV(sp4-el): 43.7 ml LA A4 area: 16.3 cm2 LA dimension(2D): 4.0 cm RA A4 area: 9.0 cm2 TAPSE: 2.1 cm Time Measurements MV dec time: 0.26 sec Doppler Measurements & Calculations MV E max bassem: 78.4 cm/sec Lat Peak E' Bassem: 10.2 cm/sec Med Peak E' Bassem: 6.7 cm/sec MV A max bassem: 98.5 cm/sec E/E' lat: 7.7 E/E' med: 11.7 MV E/A: 0.80 Ao V2 max: 189.1 cm/sec AI max bassem: 372.6 cm/sec MV dec slope: 302.3 cm/sec2 Ao max P.3 mmHg AI max P.6 mmHg Ao V2 mean: 125.8 cm/sec Ao mean P.4 mmHg AI dec slope: 193.1 cm/sec2 Ao V2 VTI: 36.5 cm AI P1/2t: 565.1 msec AV (velocity ratio): 0.70 LV V1 max: 132.5 cm/sec PA V2 max: 108.6 cm/sec TR max bassem: 336.4 cm/sec LV V1 max P.1 mmHg TR max P.3 mmHg LV V1 mean P.9 mmHg LV V1 mean: 107.2 cm/sec LV V1 VTI: 25.5 cm ECHO/Echo Complete Interpretation Summary The estimated ejection fraction is 60 %. Left ventricular systolic function is normal. Normal LV size. There is mild mitral annular calcification. Stage 1 diastolic dysfunction. Mild (1+) aortic valve insufficiency. Ordering Physician: Bunny Hanson Referring Physician: Tanya Pettit Performed By: Erika Hanson, RDCS, RVT
== END | disposition home or self-care (01) ==
PROVIDERS: PCP Internal Medicine; Referring Provider Nurse Practitioner Family; Visit Provider Nurse Practitioner Family
DX: I48.91 Unspecified atrial fibrillation (principal); I34.81 Nonrheumatic mitral (valve) annulus calcification; I35.1 Nonrheumatic aortic (valve) insufficiency
CPT/HCPCS: 93306

== ENCOUNTER → 2024-01-28 | Outpatient (CLI) | payer OTHER, SELFPAY | END | disposition home or self-care (01) | PROVIDERS: PCP Internal Medicine; Referring Provider Nurse Practitioner Family; Visit Provider Nurse Practitioner Family | DX: R55 Syncope and collapse (principal); I48.11 Longstanding persistent atrial fibrillation; I45.10 Unspecified right bundle-branch block | CPT/HCPCS: 93225; 93226 ==

== ENCOUNTER 2024-03-06 09:41 | Emergency (ER) | payer OTHER, SELFPAY ==
[2024-03-06 09:42] VITALS: BP 137/78; PULSE 69; RESP 16; TEMP 36.2; O2SAT 98; BMI 27.5
--- NOTE | 2024-03-06 10:07 | ED.VIS.GI ---
HPI HPI - GI History of Present Illness Chief Complaint: Abd Pain Abdominal Pain/Flank Pain Onset: Today Context: Sudden Onset Timing: Continuous Quality: Cramping Location: LUQ, LLQ and Left Flank Worsened by: Nothing Relieved by: Nothing Nausea/Vomiting/Emesis GI Symptom: Positive for Nausea and Vomiting Quality: Positive for Nonbilious; Negative for Blood streaks, Coffee ground or Hematemesis Diarrhea/Melena/Hematochezia GI Symptom: Negative for Diarrhea, Melena or Hematochezia Associated Symptoms Associated Symptoms: Negative for Dysuria, Frequency or Hematuria Narrative Narrative: Patient presents with left-sided abdominal pain that began today. Patient states it began rather suddenly. Patient describes it as cramping. Patient states it feels similar to prior kidney stone pain. Patient states it is mainly on the left side. Patient states nothing makes it better nothing makes it worse. Patient admits to some nausea and vomiting. Patient denies any hematemesis or coffee-ground emesis. Patient denies any dysuria, frequency, or hematuria. PFSH PFSH Medical History Abnormal cardiac CT angiography Antisynthetase syndrome Asthma Atrial fibrillation Atrial fibrillation Back pain Blackout BOOP (bronchiolitis obliterans with organizing pneumonia) BPH (benign prostatic hyperplasia) Cardiology follow-up encounter Chronic cough COVID-19 Easy bruising Essential hypertension Fatty liver Gastric reflux GERD (gastroesophageal reflux disease) High cholesterol History of atrial fibrillation History of echocardiogram History of stress test Hoarseness Hypertension Injury of head and neck Interstitial lung disease Kidney stones Lung nodule Mixed hyperlipidemia Non-smoker On home oxygen therapy Osteoporosis RBBB (right bundle branch block) Vasovagal syncope Wears glasses Home Medications cyanocobalamin (vitamin B-12) 500 mcg tablet 500 mcg PO DAILY 07/14/21 [History Last Taken Unknown] denosumab 60 mg/mL subcutaneous syringe (Prolia) 60 mg subcut [id number] 07/14/21 [History Last Taken Unknown] pantoprazole 40 mg tablet,delayed release 40 mg PO DAILY 07/14/21 [History Last Taken Unknown] ascorbic acid (vitamin C) 500 mg tablet 500 mg PO DAILY 01/01/22 [History Last Taken Unknown] budesonide 0.5 mg/2 mL suspension for nebulization (Pulmicort) 0.5 mg inhalation BID 01/01/22 [History Last Taken Unknown] cetirizine 10 mg tablet (Zyrtec) 10 mg PO DAILY PRN allergies 01/01/22 [History Last Taken Unknown] cholecalciferol (vitamin D3) 75 mcg (3,000 unit) tablet 150 mcg PO DAILY 01/01/22 [History Last Taken Unknown] fluticasone propionate 50 mcg/actuation nasal spray,suspension (Flonase Allergy Relief) 1 spray intranasal DAILY 01/01/22 [History Last Taken Unknown] lactobacillus combination no.9 4 billion cell capsule (Adult 50 Plus Probiotic) 4,000 mmu cells PO DAILY 01/01/22 [History Last Taken Unknown] sulfamethoxazole 400 mg-trimethoprim 80 mg tablet 1 tab PO .3XW 01/01/22 [History Last Taken Unknown] zinc gluconate 30 mg tablet 30 mg PO DAILY 01/01/22 [History Last Taken Unknown] montelukast 10 mg tablet (Singulair) 10 mg PO DAILY 05/12/23 [History Last Taken Unknown] mycophenolate mofetil 500 mg tablet 3,000 mg PO BID AUTOIMMUNE DISEASE 05/12/23 [History Last Taken Unknown] diltiazem HCl 120 mg capsule,extended release 24 hr 120 mg PO DAILY #90 caps 11/24/23 [Rx Last Taken Unknown] prednisone 1 mg tablet 10 mg PO DAILY 12/09/23 [History Last Taken Unknown] rosuvastatin 5 mg tablet 10 mg PO DAILY 12/09/23 [History Last Taken Unknown] apixaban 5 mg tablet (Eliquis) 5 mg PO BID #60 tabs 12/30/23 [Rx Last Taken Unknown] metoprolol succinate 25 mg tablet,extended release 24 hr See Rx Instructions .Route .COMPLEX #90 TABLETS 01/27/24 [Rx Last Taken Unknown] hydrocodone-acetaminophen 5-325mg 5mg-325mg 1 tab PO Q6H PRN PRN Pain 3 days #10 TABLETS 03/06/24 [Rx Last Taken Unknown] Allergy/AdvReac Type Severity Reaction Status Date / Time monosodium glutamate Allergy Abd Verified 03/06/24 09:42 cramps/diarrhea Penicillins [PCN] Allergy Rash Verified 03/06/24 09:42 allopurinol AdvReac Unknown cough Verified 03/06/24 09:42 morphine AdvReac Other Verified 03/06/24 09:42 tamsulosin [From Flomax] AdvReac Other Verified 03/06/24 09:42 Family History Grandfather CVA (cerebral vascular accident) Grandmother Congestive heart failure Grandmother Cardiac pacemaker in situ Mother Heart disease Hypertension Father Heart disease Cardiac arrhythmia Surgical History History of inguinal hernia repair History of umbilical hernia repair Hx of cystoscopy Social History household members: spouse Smoking Status: Never smoker alcohol intake: current details: Rare substance use type: does not use caffeine: Yes Type: coffee Number of servings: 1 ROS ROS ED Constitutional Constitutional ED: Reports chills and sweats; Denies fever(s) Eyes Eyes: Denies blurry vision or change in vision ENT ENT ED: Denies rhinorrhea or sore throat Cardiovascular Cardiovascular: Denies chest pain or palpitations Respiratory/Chest Respiratory/Chest: Denies cough or dyspnea Gastrointestinal Gastrointestinal: Reports abdominal pain, nausea and vomiting; Denies diarrhea or melena Genitourinary Genitourinary ED: Denies dysuria or hematuria Musculoskeletal Musculoskeletal: Denies back pain or neck pain Integumentary Reports rash; Denies abscess Neurologic Neurologic: Denies headache(s) or weakness Allergic/Immunologic Allergic/Immunologic ED: Denies mouth swelling or urticaria EXAM Physical Exam Const Vital Signs: 03/06/24 09:42 03/06/24 11:41 Temperature 97.2 F L 98.1 F Temperature Source Temporal Oral Pulse Rate 69 76 Respiratory Rate 16 20 H Blood Pressure 137/78 H 148/64 H Blood Pressure Mean 97 92 Pulse Ox 98 99 Oxygen Delivery Method Room Air Positive well nourished and well developed General Appearance ED: well developed and NAD HEENT Reports moist mucous membranes Neck supple and no JVD Resp normal respiratory effort and clear to auscultation bilaterally Cardio regular rate and regular rhythm GI non-distended Palpation: soft and tender LLQ and LUQ; Negative for guarding or rebound tenderness present Back/Spine no CVA tenderness Extremity full ROM General Extremety ED: Negative for edema or tenderness General Extremity: Negative for edema Neuro CN's II-XII intact bilaterally, moves all extremities and no sensory deficits noted Sensorium / Orientation: alert Motor Exam: strength 5/5 throughout Psych mental status grossly normal Skin no wounds Skin Narrative: There is a mild patchy erythematous rash over the upper chest. There are no vesicles or pustules. There is no petechia noted. There is no involvement of mucous membranes. There is no sloughing of the skin. It is blanchable. MDM MDM MDM Narrative Medical decision making narrative: Differential diagnosis includes ureteral calculus, bowel obstruction, perforation, diverticulitis, urinary tract infection, pyelonephritis, and gastroenteritis. CT scan of the abdomen pelvis will be obtained to assess for ureteral calculus, bowel obstruction, and perforation. CBC will be obtained to assess for leukocytosis and anemia. Basic metabolic profile will be obtained to assess for electrolyte abnormality and renal function. Urinalysis will be obtained to assess for urinary tract infection and hematuria. Lab Data Attestation: I reviewed the patient's lab results. Lab results narrative: CBC was reviewed. There is a mild leukocytosis of 12.5. The remainder is essentially within normal limits. Basic metabolic profile was reviewed. Creatinine was slightly elevated at 1.31. Glucose was slightly elevated at 130. Urinalysis was reviewed. There is no evidence of urinary tract infection. There are 25-50 red blood cells and occult blood at 250. Labs: Laboratory Results - last 24 hr 03/06/24 03/06/24 10:00 12:00 WBC 12.5 H RBC 4.91 Hgb 14.4 Hct 46.6 MCV 94.9 H MCH 29.3 MCHC 30.9 L RDW Std Deviation 49.9 H RDW Coeff of Opal 14.4 Plt Count 269 MPV 9.8 Immature Gran % (Auto) 0.600 Neut % (Auto) 88.3 H Lymph % (Auto) 2.7 L [place] % (Auto) 7.7 Eos % (Auto) 0.1 Baso % (Auto) 0.6 Absolute Neuts (auto) 11.1 H Absolute Lymphs (auto) 0.34 L Nucleated RBC % 0 Sodium 142 Potassium 4.1 Chloride 110 H Carbon Dioxide 27.0 Anion Gap 5 BUN 15 Creatinine 1.31 H Estim Creat Clear Calc 53.40 Est GFR (MDRD) Af Amer 69 Est GFR (MDRD) Non-Af 57 L BUN/Creatinine Ratio 11.5 Glucose 130 H Calcium 9.3 Urine Color Yellow Urine Clarity Clear Urine pH 5.0 Ur Specific [place] 1.020 Urine Protein 15 H Urine Glucose (UA) Normal Urine Ketones Negative Urine Occult Blood 250 H Urine Nitrite Negative Urine Bilirubin Negative Urine Urobilinogen Normal Ur Leukocyte Esterase 25 H Urine RBC 25-50 SEEN Urine WBC 0 SEEN Ur Squamous Epith Cells 0-5 SEEN Urine Bacteria 0 SEEN Urine Mucus 1+ Radiography Diagnostic Testing: Clinical Impression(s) from Imaging Studies Abdomen/Pelvis CT 03/06/24 10:22 IMPRESSION: Stable 7.4 mm noncalcified nodule in the left lower lobe with groundglass appearance in the right lower lobe. Multiple bilateral nonobstructive intrarenal calculi and dominant cyst in the right kidney. 4.8 mm calculus in the proximal portion of the left ureter causing a mild degree of left hydronephrosis and left proximal hydroureter. Electronically Signed: Harinder Melton MD at 11:28 EDT , CT scan of the abdomen and pelvis was obtained. There is a 4.8 mm calculus in the proximal left ureter causing mild left hydronephrosis and hydroureter. There are multiple bilateral nonobstructive intrarenal calculi. There is also a stable 7.4 mm noncalcified nodule in the left lower lobe. This was interpreted by the radiologist and was also independently reviewed by myself. Treatment and Re-Evaluation :: Patient was given IV fluids, Zofran, and Toradol. Patient states he had a bad reaction to morphine in the past where he became very dizzy. Patient stated he did not want to have morphine again. Patient was advised of his findings. Patient states he was able to pass a stone in the past that was between 4 and 5 mm. Patient states his pain is better. Patient was given a prescription for a short course of [place]. Patient was instructed to follow-up with his primary care physician and urologist in 3 to 5 days. Patient understood and was agreeable with the plan. All questions were answered. Discharge Plan Triage Chief Complaint: Abd Pain ED Provider: Wagner Ernandez Dx/Rx/DC Orders Clinical Impression: Calculus of proximal left ureter, Essential hypertension Instructions: ED Kidney Stone with Pain Prescriptions: New hydrocodone-acetaminophen [hydrocodone-acetaminophen] 5-325 mg tablet 1 tab PO Q6H PRN PRN (Reason: Pain) 3 Days Qty: 10 0RF No Action pantoprazole 40 mg tablet,delayed release (DR/EC) 40 mg PO DAILY Prolia 60 mg/mL syringe 60 mg subcut [id number] cyanocobalamin (vitamin B-12) 500 mcg tablet 500 mcg PO DAILY zinc gluconate 30 mg tablet 30 mg PO DAILY cholecalciferol (vitamin D3) 75 mcg (3,000 unit) tablet 150 mcg PO DAILY sulfamethoxazole-trimethoprim 400-80 mg tablet 1 tab PO .3XW ascorbic acid (vitamin C) 500 mg tablet 500 mg PO DAILY Adult 50 Plus Probiotic 4 billion cell capsule 4,000 mmu cells PO DAILY Rx Instructions: administer with a meal budesonide [Pulmicort] 0.5 mg/2 mL suspension for nebulization 0.5 mg inhalation BID cetirizine [Zyrtec] 10 mg tablet 10 mg PO DAILY PRN (Reason: allergies) fluticasone propionate [Flonase Allergy Relief] 50 mcg/actuation spray,suspension 1 spray intranasal DAILY Rx Instructions: administer into each nostril mycophenolate mofetil 500 mg tablet 3,000 mg PO BID prednisone 1 mg tablet 10 mg PO DAILY montelukast [Singulair] 10 mg tablet 10 mg PO DAILY rosuvastatin 5 mg tablet 10 mg PO DAILY diltiazem HCl 120 mg capsule,extended release 24hr 120 mg PO DAILY Qty: 90 3RF Eliquis 5 mg tablet 5 mg PO BID Qty: 60 11RF metoprolol succinate 25 mg tablet extended release 24 hr See Rx Instructions .ROUTE .COMPLEX Qty: 90 3RF Dose Instruction: take 1 tablet orally daily Rx Instructions: take 1 tablet orally daily Primary Care Provider: Tanya Pettit Referrals: Tanya Pettit DO [Primary Care Provider] - 3-5 Days Devon Bullard MD [Med Staff - Active Staff] - 3-5 Days Disposition Disposition: Home, Self Care
--- NOTE | 2024-03-06 10:22 | CT_ITS ---
STUDY: CT ABDOMEN AND PELVIS WITHOUT CONTRAST REASON FOR EXAM: Male, 73 years old. Left flank pain RADIATION DOSAGE (If Supplied By Facility): CTDIvol = ( 12.96 ) mGy, DLP = ( 760.69 ) mGycm TECHNIQUE: Transaxial images were obtained from the dome of the diaphragm to the symphysis pubis without oral contrast, and without intravenous contrast. Sagittal and coronal images were reconstructed. Individualized dose optimization techniques were used for this CT. COMPARISON: Comparison is made with prior study dated December 20, 2023. FINDINGS: There is a 7.4 mm noncalcified nodule in the peripheral lateral aspect of the left lower lobe. This is unchanged. There is evidence of groundglass appearance in the right middle lobe and right lower lobes. Coronary artery calcification. There is decreased attenuation of the liver consistent with steatosis. Normal gallbladder and extrahepatic biliary system. Normal spleen. Normal pancreas. Normal bilateral adrenal glands. Once again, there are multiple bilateral nonobstructive intrarenal calculi. Stable 6.7 cm x 5.1 semi the cyst in the inferior medial pole of the right kidney. There is also evidence of a 1.7 cm cyst in the anterior aspect of the left kidney. There is mild degree of left hydronephrosis and proximal left hydroureter due to a 4.8 mm calculus in the proximal portion of the left ureter. Mild degree of bilateral perinephric stranding. Normal visualized stomach. Normal small intestine. Normal colon. The appendix is visualized and appears normal. Normal abdominal aorta. Normal inferior vena cava. Normal retroperitoneum. Normal urinary bladder. There is enlargement of the prostate gland. This measures 4.7 cm x 5.1 cm. Central calcification is seen. Normal abdominal wall. There are degenerative changes of the visualized lumbar spine. 50% loss of height of the superior endplate of the T11 vertebrae. CT/Abdomen/Pelvis without Cont IMPRESSION: Stable 7.4 mm noncalcified nodule in the left lower lobe with groundglass appearance in the right lower lobe. Multiple bilateral nonobstructive intrarenal calculi and dominant cyst in the right kidney. 4.8 mm calculus in the proximal portion of the left ureter causing a mild degree of left hydronephrosis and left proximal hydroureter. Electronically Signed: Harinder Melton MD at 11:28 EDT ,
[2024-03-06 10:36] LABS: Absolute Lymphocyte Count 0.34 X10^3/uL (0.83-4.51); Absolute Neutrophil Count 11.1 X10^3/uL (2.0-7.7); Basophil# 0.07 X10^3/uL; Basophil% 0.6 % (0-1); Eosinophil# 0.01 X10^3/uL; Eosinophils% 0.1 % (0-5); Hematocrit 46.6 % (40-54); Hemoglobin 14.4 g/dL (13.0-16.5); Lymphocyte # 0.34 X10^3/ul (0.83-4.51); Lymphocyte % 2.7 % (19-41); Mean Corp Hgb Conc 30.9 g/dL (32-36); Mean Corpuscular Hgb 29.3 pg (27.0-32.0); Mean Corpuscular Volume 94.9 fL (80-94); Mean Platelet Vol. 9.8 fl (6.2-12.0); Monocyte# 0.97 X10^3/uL; Monocyte% 7.7 % (0-10); NRBC Flagged by Analyzer 0 % (0-5); Neutrophil # 11.07 X10^3/uL (2.7-7.7); Neutrophil % 88.3 % (47-70); POSITIVE DIFFERENTIAL YES; Platelet Count 269 K/mm3 (150-450); RBC Distribution Width CV 14.4 % (11.6-14.6); RBC Distribution Width SD 49.9 fl (35.1-43.9); Red Blood Count 4.91 M/mm3 (4.6-6.2); White Blood Count 12.5 K/mm3 (4.4-11.0)
[2024-03-06 10:57] LABS: Anion Gap 5 (5-15); BUN 15 mg/dL (7-18); BUN/Creat Ratio 11.5 RATIO (10-20); Calcium,Total 9.3 mg/dL (8.5-10.1); Chloride 110 mmol/L (98-107); Creatinine, Serum 1.31 mg/dL (0.70-1.30); EST Glomerular Filtration Rate 57 mL/min (>60); Est Glom Filt Rate - Afr Amer 69 mL/min (>60); Glucose 130 mg/dL (74-106); Potassium 4.1 mmol/L (3.5-5.1); Sodium Level 142 mmol/L (136-145)
[2024-03-06] MEDS: 0.9% Normal Saline (1000mL) 1,000 ML 1000 ML IV (11:01)
[2024-03-06] MEDS: Ketorolac 15 MG/ML Vial IV (11:02)
[2024-03-06] MEDS: Ondansetron 4 MG/2 ML Vial IV (11:02)
[2024-03-06 11:41] VITALS: BP 148/64; PULSE 76; RESP 20; TEMP 36.7; O2SAT 99
[2024-03-06 12:04] LABS: Bacteria 0 SEEN /hpf (None Seen); White Blood Cells 0 SEEN /hpf (0-5)
[2024-03-06 12:06] LABS: Color, Urine Yellow (Yellow); Glucose, Dipstick Normal (Normal); Ketone-Dipstick Negative (Negative); Leukocyte Esterase-Dipstick 25 /ul (Negative); Nitrite-Dipstick Negative (Negative); Occult Blood-Urine 250 /ul (Negative); Protein-Dipstick 15 mg/dl (Negative); Urine Bilirubin Dipstick Negative (Negative); Urine Clarity Clear (Clear); Urine Urobilinogen Normal (Normal)
[2024-03-06 12:11] LABS: Mucous, Urine 1+ /hpf (<or=2+); Red Blood Cells-Urine 25-50 SEEN /hpf (0-5)
[2024-03-06 12:12] LABS: Squamous Epithelial Cells - UA 0-5 SEEN /hpf (0-5)
[2024-03-06 13:04] VITALS: BP 128/63; PULSE 91; RESP 16; TEMP 36.8; O2SAT 100
== END 2024-03-06 13:05 | disposition home or self-care (01) ==
PROVIDERS: Emergency Provider Emergency Medicine; PCP Internal Medicine; Visit Provider Emergency Medicine
DX: N13.2 Hydronephrosis with renal and ureteral calculous obstruction (principal); I48.91 Unspecified atrial fibrillation; I10 Essential (primary) hypertension; E78.00 Pure hypercholesterolemia, unspecified; Z99.81 Dependence on supplemental oxygen; K21.9 Gastro-esophageal reflux disease without esophagitis; J45.909 Unspecified asthma, uncomplicated; Z79.51 Long term (current) use of inhaled steroids; Z79.899 Other long term (current) drug therapy; Z79.01 Long term (current) use of anticoagulants
CPT/HCPCS: 74176; 80048; 81001; 85025; 96361; 96374; 96375; 99283; J7030; A4216; J2405

== ENCOUNTER → 2024-03-10 | Outpatient (CLI) | payer OTHER, SELFPAY ==
[2024-03-10 16:12] LABS: Absolute Lymphocyte Count 0.35 X10^3/uL (0.83-4.51); Absolute Neutrophil Count 10.6 X10^3/uL (2.0-7.7); Basophil# 0.07 X10^3/uL; Basophil% 0.6 % (0-1); Eosinophil# 0.04 X10^3/uL; Eosinophils% 0.3 % (0-5); Hematocrit 48.4 % (40-54); Lymphocyte # 0.35 X10^3/ul (0.83-4.51); Lymphocyte % 2.8 % (19-41); Mean Corpuscular Hgb 29.1 pg (27.0-32.0); Mean Platelet Vol. 11.1 fl (6.2-12.0); Monocyte# 1.47 X10^3/uL; Monocyte% 11.7 % (0-10); NRBC Flagged by Analyzer 0 % (0-5); Neutrophil # 10.55 X10^3/uL (2.7-7.7); Neutrophil % 83.8 % (47-70); POSITIVE COUNT YES; POSITIVE DIFFERENTIAL YES; Platelet Count 233 K/mm3 (150-450); RBC Distribution Width CV 14.5 % (11.6-14.6); RBC Distribution Width SD 49.3 fl (35.1-43.9); Red Blood Count 5.15 M/mm3 (4.6-6.2); White Blood Count 12.6 K/mm3 (4.4-11.0)
[2024-03-10 16:23] LABS: Differential Indicated SCAN CRITERIA MET
[2024-03-10 16:26] LABS: ALB/GLOB Ratio 1.1 RATIO (0.9-2.4); AST(SGOT) 12 U/L (15-37); Alanine Aminotransfer ALT/SGPT 15 U/L (16-61); Albumin, Serum 3.6 g/dL (3.2-5.0); Alkaline Phosphatase 71 U/L (45-117); Anion Gap 11 (5-15); BUN 20 mg/dL (7-18); BUN/Creat Ratio 11.7 RATIO (10-20); Calcium,Total 9.4 mg/dL (8.5-10.1); Chloride 101 mmol/L (98-107); Creatinine, Serum 1.71 mg/dL (0.70-1.30); EST Glomerular Filtration Rate 42 mL/min (>60); Est Glom Filt Rate - Afr Amer 51 mL/min (>60); Globulin 3.3 g/dL (2.2-4.2); Glucose 82 mg/dL (74-106); Potassium 4.2 mmol/L (3.5-5.1); Protein, Total 6.9 g/dL (6.4-8.2); Sodium Level 137 mmol/L (136-145)
[2024-03-10 16:46] LABS: Anisocytosis RARE; Platelet Estimate ADEQUATE (ADEQ); Platelet Morphology LARGE; Red Cell Morphology N CHROM NORMAL (NORM C&C)
== END | disposition home or self-care (01) ==
LOC: LABSPEC 15:19
PROVIDERS: PCP Internal Medicine; Referring Provider Internal Medicine; Visit Provider Internal Medicine
DX: N20.1 Calculus of ureter (principal)
CPT/HCPCS: 80053; 85025

== ENCOUNTER 2024-03-11 12:03 | Emergency (ER) | payer OTHER, SELFPAY ==
[2024-03-11 12:04] VITALS: BP 107/73; PULSE 82; RESP 16; TEMP 36.6; O2SAT 98; BMI 27.8
--- NOTE | 2024-03-11 12:20 | EX.ED.DYSGE1 ---
HPI <DINA Matamoros - Last Filed: 03/11/24 14:24> History of Present Illness Chief Complaint: Complaint Narrative Narrative: 73-year-old male developed left flank pain on 03/06 and was seen here that day and diagnosed with a 4.8 mm left proximal ureteral kidney stone. He went home on Norton and Zofran. He states despite the antiemetic he still very nauseated and not eating much. He is drinking fluids. He is urinating without retention. He saw his PCP yesterday and was given IV fluids in the office. They checked blood work and stated his creatinine was worse and recommended he go to the ED. He states the pain has migrated from the left flank to the left lower abdomen. He is established with Dr. Bullard but has not seen him for this new stone. He has a history of A-fib and is prescribed Eliquis but states he has not taken it for several weeks. PFS <DINA Matamoros - Last Filed: 03/11/24 14:24> [facility] Medical History Abnormal cardiac CT angiography Antisynthetase syndrome Asthma Atrial fibrillation Atrial fibrillation Back pain Blackout BOOP (bronchiolitis obliterans with organizing pneumonia) BPH (benign prostatic hyperplasia) Cardiology follow-up encounter Chronic cough COVID-19 Easy bruising Essential hypertension Fatty liver Gastric reflux GERD (gastroesophageal reflux disease) High cholesterol History of atrial fibrillation History of echocardiogram History of stress test Hoarseness Hypertension Injury of head and neck Interstitial lung disease Kidney stones Lung nodule Mixed hyperlipidemia Non-smoker On home oxygen therapy Osteoporosis RBBB (right bundle branch block) Vasovagal syncope Wears glasses Home Medications cyanocobalamin (vitamin B-12) 500 mcg tablet 500 mcg PO DAILY 07/14/21 [History Last Taken Unknown] denosumab 60 mg/mL subcutaneous syringe (Prolia) 60 mg subcut [id number] 07/14/21 [History Last Taken Unknown] pantoprazole 40 mg tablet,delayed release 40 mg PO DAILY 07/14/21 [History Last Taken Unknown] ascorbic acid (vitamin C) 500 mg tablet 500 mg PO DAILY 01/01/22 [History Last Taken Unknown] budesonide 0.5 mg/2 mL suspension for nebulization (Pulmicort) 0.5 mg inhalation BID 01/01/22 [History Last Taken Unknown] cetirizine 10 mg tablet (Zyrtec) 10 mg PO DAILY PRN allergies 01/01/22 [History Last Taken Unknown] cholecalciferol (vitamin D3) 75 mcg (3,000 unit) tablet 150 mcg PO DAILY 01/01/22 [History Last Taken Unknown] fluticasone propionate 50 mcg/actuation nasal spray,suspension (Flonase Allergy Relief) 1 spray intranasal DAILY 01/01/22 [History Last Taken Unknown] lactobacillus combination no.9 4 billion cell capsule (Adult 50 Plus Probiotic) 4,000 mmu cells PO DAILY 01/01/22 [History Last Taken Unknown] sulfamethoxazole 400 mg-trimethoprim 80 mg tablet 1 tab PO .3XW 01/01/22 [History Last Taken Unknown] zinc gluconate 30 mg tablet 30 mg PO DAILY 01/01/22 [History Last Taken Unknown] montelukast 10 mg tablet (Singulair) 10 mg PO DAILY 05/12/23 [History Last Taken Unknown] mycophenolate mofetil 500 mg tablet 3,000 mg PO BID AUTOIMMUNE DISEASE 05/12/23 [History Last Taken Unknown] diltiazem HCl 120 mg capsule,extended release 24 hr 120 mg PO DAILY #90 caps 11/24/23 [Rx Last Taken Unknown] prednisone 1 mg tablet 10 mg PO DAILY 12/09/23 [History Last Taken Unknown] rosuvastatin 5 mg tablet 10 mg PO DAILY 12/09/23 [History Last Taken Unknown] apixaban 5 mg tablet (Eliquis) 5 mg PO BID #60 tabs 12/30/23 [Rx Last Taken Unknown] metoprolol succinate 25 mg tablet,extended release 24 hr See Rx Instructions .Route .COMPLEX #90 TABLETS 01/27/24 [Rx Last Taken Unknown] hydrocodone-acetaminophen 5-325mg 5mg-325mg 1 tab PO Q6H PRN PRN Pain 3 days #10 TABLETS 03/06/24 [Rx Last Taken Unknown] hydrocodone-acetaminophen 5-325mg 5mg-325mg 1 tab PO Q6H PRN pain 3 days #12 tabs 03/11/24 [Rx Last Taken Unknown] Allergy/AdvReac Type Severity Reaction Status Date / Time monosodium glutamate Allergy Abd Verified 03/11/24 12:06 cramps/diarrhea Penicillins [PCN] Allergy Rash Verified 03/11/24 12:06 allopurinol AdvReac Unknown cough Verified 03/11/24 12:06 morphine AdvReac Other Verified 03/11/24 12:06 tamsulosin [From Flomax] AdvReac Other Verified 03/11/24 12:06 Family History Grandfather CVA (cerebral vascular accident) Grandmother Congestive heart failure Grandmother Cardiac pacemaker in situ Mother Heart disease Hypertension Father Heart disease Cardiac arrhythmia Surgical History History of inguinal hernia repair History of umbilical hernia repair Hx of cystoscopy Social History household members: spouse Smoking Status: Never smoker alcohol intake: current details: Rare substance use type: does not use caffeine: Yes Type: coffee Number of servings: 1 ROS <DINA Matamoros - Last Filed: 03/11/24 14:24> ROS ED ROS Narrative Constitutional: Negative for fever, chills, malaise. GI: Positive for abdominal pain, nausea, vomiting. : Negative for dysuria, hematuria or frequency. EXAM <DINA Matamoros - Last Filed: 03/11/24 14:24> Physical Exam Narrative Exam Narrative: CONST: Patient sitting in no acute distress. EYES: Normal inspection. NECK: Normal inspection. RESP: No respiratory distress, CTAB. CVS: Regular rate and rhythm, no murmur, no gallop. ABD: Soft and nontender, no guarding or rebound, nondistended. SKIN: Color normal, no rash, warm, dry, intact. EXTREMITIES: Normal appearance, no pedal edema. NEURO: Alert and answering questions appropriately. PSYCH: Normal affect. Const Vital Signs: 03/11/24 12:04 03/11/24 13:56 Temperature 97.8 F Temperature Source Temporal Pulse Rate 82 70 Respiratory Rate 16 16 Blood Pressure 107/73 128/57 H Blood Pressure Mean 84 80 Pulse Ox 98 98 Oxygen Delivery Method Room Air Room Air <Dr. Wagner Ernandez DO - Last Filed: 03/11/24 14:32> Physical Exam Const Vital Signs: 03/11/24 12:04 03/11/24 13:56 Temperature 97.8 F Temperature Source Temporal Pulse Rate 82 70 Respiratory Rate 16 16 Blood Pressure 107/73 128/57 H Blood Pressure Mean 84 80 Pulse Ox 98 98 Oxygen Delivery Method Room Air Room Air [facility] <DINA Matamoros - Last Filed: 03/11/24 14:24> [facility] Narrative Medical decision making narrative: History gathered from: Patient, spouse Patient seen here earlier this week and was diagnosed with a 4.8 mm left proximal ureteral stone. He presents with persistent nausea and abdominal pain and outpatient labs showing worsening renal function. He appears well and nontoxic. Afebrile and hemodynamically stable. The change in renal function was from creatinine of 1.31 to 1.71. Today creatinine is 1.87. Is a white count of 13.3 but urinalysis is negative for infection. CT scan shows 94 mm stone has moved to the left UVJ from the proximal ureter with moderate left hydronephrosis. There is also an adjacent smaller stone in the left UVJ. Since he has an acute kidney injury I recommended he be observed in the hospital. We do not have a urologist available this weekend so this would require transfer. Patient states he does not want to be transferred and would rather go home. I discussed the risks including potential for renal failure, sepsis, endorgan damage or . He expressed understanding. I prescribed Norton and he states he has enough Zofran at home if needed. I recommended if his stone does not pass in the next 1 to 2 days he will be promptly reevaluated either by urology or in the ED. I discussed return precautions and he was discharged in stable condition. Lab Data Labs: Laboratory Results - last 24 hr 03/11/24 12:30 WBC 13.3 H RBC 5.13 Hgb 14.9 Hct 48.2 MCV 94.0 MCH 29.0 MCHC 30.9 L RDW Std Deviation 49.5 H RDW Coeff of Opal 14.5 Plt Count 279 MPV 9.5 Immature Gran % (Auto) 0.800 Neut % (Auto) 84.2 H Lymph % (Auto) 3.2 L [place] % (Auto) 10.5 H Eos % (Auto) 0.8 Baso % (Auto) 0.5 Absolute Neuts (auto) 11.2 H Absolute Lymphs (auto) 0.42 L Nucleated RBC % 0 Sodium 136 Potassium 3.9 Chloride 104 Carbon Dioxide 25.0 Anion Gap 7 BUN 20 H Creatinine 1.87 H Estim Creat Clear Calc 40.45 Est GFR (MDRD) Af Amer 46 L Est GFR (MDRD) Non-Af 38 L BUN/Creatinine Ratio 10.7 Glucose 106 Calcium 9.1 Urine Color Yellow Urine Clarity Clear Urine pH 5.0 Ur Specific [place] 1.020 Urine Protein 30 H Urine Glucose (UA) Normal Urine Ketones Negative Urine Occult Blood 10 H Urine Nitrite Negative Urine Bilirubin 1 H Urine Urobilinogen Normal Ur Leukocyte Esterase 25 H Urine RBC 0 SEEN Urine WBC 0-5 SEEN Ur Squamous Epith Cells 0 SEEN Urine Bacteria 0 SEEN Urine Mucus 0 SEEN Radiography Diagnostic Testing: Clinical Impression(s) from Imaging Studies Abdomen/Pelvis CT 03/11/24 13:07 IMPRESSION: 1. Moderate left hydronephrosis due to 4 mm stone in the left UVJ migrated from the proximal left ureter since previous exam. 2. Adjacent smaller calcification also in the left UVJ. 3. Persistent bilateral nonobstructing renal stones. 4. 7 mm noncalcified left lower lobe nodule for which follow-up CT scan of the chest exam in 6 months is recommended, (lung RADS 3). Electronically Signed: Charlie Chakraborty MD at 13:59 EDT , <Dr. Wagner Ernandez, DO - Last Filed: 03/11/24 14:32> [facility] Lab Data Labs: Laboratory Results - last 24 hr 03/11/24 12:30 WBC 13.3 H RBC 5.13 Hgb 14.9 Hct 48.2 MCV 94.0 MCH 29.0 MCHC 30.9 L RDW Std Deviation 49.5 H RDW Coeff of Opal 14.5 Plt Count 279 MPV 9.5 Immature Gran % (Auto) 0.800 Neut % (Auto) 84.2 H Lymph % (Auto) 3.2 L [place] % (Auto) 10.5 H Eos % (Auto) 0.8 Baso % (Auto) 0.5 Absolute Neuts (auto) 11.2 H Absolute Lymphs (auto) 0.42 L Nucleated RBC % 0 Sodium 136 Potassium 3.9 Chloride 104 Carbon Dioxide 25.0 Anion Gap 7 BUN 20 H Creatinine 1.87 H Estim Creat Clear Calc 40.45 Est GFR (MDRD) Af Amer 46 L Est GFR (MDRD) Non-Af 38 L BUN/Creatinine Ratio 10.7 Glucose 106 Calcium 9.1 Urine Color Yellow Urine Clarity Clear Urine pH 5.0 Ur Specific [place] 1.020 Urine Protein 30 H Urine Glucose (UA) Normal Urine Ketones Negative Urine Occult Blood 10 H Urine Nitrite Negative Urine Bilirubin 1 H Urine Urobilinogen Normal Ur Leukocyte Esterase 25 H Urine RBC 0 SEEN Urine WBC 0-5 SEEN Ur Squamous Epith Cells 0 SEEN Urine Bacteria 0 SEEN Urine Mucus 0 SEEN Radiography Diagnostic Testing: Clinical Impression(s) from Imaging Studies Abdomen/Pelvis CT 03/11/24 13:07 IMPRESSION: 1. Moderate left hydronephrosis due to 4 mm stone in the left UVJ migrated from the proximal left ureter since previous exam. 2. Adjacent smaller calcification also in the left UVJ. 3. Persistent bilateral nonobstructing renal stones. 4. 7 mm noncalcified left lower lobe nodule for which follow-up CT scan of the chest exam in 6 months is recommended, (lung RADS 3). Electronically Signed: Charlie Chakraborty MD at 13:59 EDT , Treatment and Re-Evaluation :: I have personally performed a face to face assessment of the patient and have reviewed the LIANA Note. I performed a substantive portion of the visit including all aspects of the following. My lau findings include: History: Patient presents with left flank pain that has been constant for the past few days. Patient was seen here recently diagnosed with a left proximal ureteral calculus measuring approximately 4.8 mm. Patient followed up with his primary care physician yesterday who repeated his basic metabolic profile. She noted the the creatinine increased to 1.7. She gave the patient IV fluids. Patient states he was able to eat a bowl of cereal last night. Patient states he has not been drinking much. Patient states his pain is somewhat better. Exam: Vital signs are stable. Patient is afebrile. Patient is in no acute distress. Oral mucosa is pink and moist. Neck is supple. Trachea is midline. There is no JVD. Heart was regular rate and rhythm. Lungs are clear and equal bilaterally. Abdomen is soft. Bowel sounds are normal. There is no tenderness. There is no guarding noted. There is no CVA tenderness. Cranial nerves II through XII are intact. There are no focal motor or sensory deficits noted. Medical Decision Making: Differential diagnosis includes ureteral calculus, urinary tract infection, dehydration, and electrolyte abnormality. CBC will be obtained to assess for leukocytosis and anemia. Basic metabolic profile will be obtained to assess for renal function and electrolyte abnormality. Urinalysis will be obtained to assess for urinary tract infection and hematuria. Patient was given IV fluids and Zofran. CBC was reviewed. There is a mild leukocytosis of 13.3. The remainder was within normal limits. Basic metabolic profile was reviewed. BUN was slightly elevated at 20. Creatinine was elevated at 1.87. This was increased from previous result. Urinalysis was reviewed. There is no evidence of urinary tract infection or hematuria. CT scan of the abdomen pelvis was reviewed. There is moderate left hydronephrosis due to 4 mm stone at the left UVJ. There is also a smaller adjacent calculus at the left UVJ. This was interpreted by the radiologist was also independently reviewed by myself. Patient was advised of his findings. Patient does not want to be transferred to a different hospital. Patient wants to go home and follow-up as an outpatient. Patient was instructed to drink plenty of fluids. Patient was instructed to return if worse in any way. Patient understood and was agreeable with plan. All questions were answered. Discharge Plan Triage Chief Complaint: Complaint ED Midlevel Provider: Bing Santos ED Provider: Wagner Ernandez Dx/Rx/DC Orders Clinical Impression: Acute kidney injury, Hydronephrosis of left kidney, Calculus of left kidney Instructions: ED Kidney Stone with Pain Prescriptions: New hydrocodone-acetaminophen 5-325 mg tablet 1 tab PO Q6H PRN (Reason: pain) 3 Days Qty: 12 0RF No Action pantoprazole 40 mg tablet,delayed release (DR/EC) 40 mg PO DAILY Prolia 60 mg/mL syringe 60 mg subcut [id number] cyanocobalamin (vitamin B-12) 500 mcg tablet 500 mcg PO DAILY zinc gluconate 30 mg tablet 30 mg PO DAILY cholecalciferol (vitamin D3) 75 mcg (3,000 unit) tablet 150 mcg PO DAILY sulfamethoxazole-trimethoprim 400-80 mg tablet 1 tab PO .3XW ascorbic acid (vitamin C) 500 mg tablet 500 mg PO DAILY Adult 50 Plus Probiotic 4 billion cell capsule 4,000 mmu cells PO DAILY Rx Instructions: administer with a meal budesonide [Pulmicort] 0.5 mg/2 mL suspension for nebulization 0.5 mg inhalation BID cetirizine [Zyrtec] 10 mg tablet 10 mg PO DAILY PRN (Reason: allergies) fluticasone propionate [Flonase Allergy Relief] 50 mcg/actuation spray,suspension 1 spray intranasal DAILY Rx Instructions: administer into each nostril mycophenolate mofetil 500 mg tablet 3,000 mg PO BID prednisone 1 mg tablet 10 mg PO DAILY montelukast [Singulair] 10 mg tablet 10 mg PO DAILY rosuvastatin 5 mg tablet 10 mg PO DAILY hydrocodone-acetaminophen [hydrocodone-acetaminophen] 5-325 mg tablet 1 tab PO Q6H PRN PRN (Reason: Pain) 3 Days Qty: 10 0RF diltiazem HCl 120 mg capsule,extended release 24hr 120 mg PO DAILY Qty: 90 3RF Eliquis 5 mg tablet 5 mg PO BID Qty: 60 11RF metoprolol succinate 25 mg tablet extended release 24 hr See Rx Instructions .ROUTE .COMPLEX Qty: 90 3RF Dose Instruction: take 1 tablet orally daily Rx Instructions: take 1 tablet orally daily Primary Care Provider: Tanya Pettit Referrals: Tanya Pettit DO [Primary Care Provider] - Devon Bullard MD [Med Staff - Active Staff] - Activity Restrictions/Additional Instructions: The CAT scan shows the kidney stone is in the left ureter right before your bladder. This has moved since your last CT scan. It has caused swelling and injury of your kidney. Risks of going home include worsening kidney function or kidney failure. If you have not passed the stone by Wednesday you should be reevaluated by urology or in the ED. Return immediately if you cannot manage her pain adequately at home, develop a fever, or cannot urinate. Disposition Disposition: Home, Self Care
[2024-03-11] MEDS: Ondansetron 4 MG/2 ML Vial IV (12:30)
[2024-03-11] MEDS: 0.9% Normal Saline (1000mL) 1,000 ML 999 ML IV (12:30)
[2024-03-11 12:37] LABS: Bacteria 0 SEEN /hpf (None Seen); Mucous, Urine 0 SEEN /hpf (<or=2+); Red Blood Cells-Urine 0 SEEN /hpf (0-5); Squamous Epithelial Cells - UA 0 SEEN /hpf (0-5)
[2024-03-11 12:39] LABS: Color, Urine Yellow (Yellow); Glucose, Dipstick Normal (Normal); Ketone-Dipstick Negative (Negative); Leukocyte Esterase-Dipstick 25 /ul (Negative); Nitrite-Dipstick Negative (Negative); Occult Blood-Urine 10 /ul (Negative); Protein-Dipstick 30 mg/dl (Negative); Urine Clarity Clear (Clear); Urine Urobilinogen Normal (Normal)
[2024-03-11 12:50] LABS: Absolute Lymphocyte Count 0.42 X10^3/uL (0.83-4.51); Absolute Neutrophil Count 11.2 X10^3/uL (2.0-7.7); Basophil# 0.06 X10^3/uL; Basophil% 0.5 % (0-1); Eosinophil# 0.11 X10^3/uL; Eosinophils% 0.8 % (0-5); Hematocrit 48.2 % (40-54); Hemoglobin 14.9 g/dL (13.0-16.5); Lymphocyte # 0.42 X10^3/ul (0.83-4.51); Lymphocyte % 3.2 % (19-41); Mean Corp Hgb Conc 30.9 g/dL (32-36); Mean Platelet Vol. 9.5 fl (6.2-12.0); Monocyte# 1.39 X10^3/uL; Monocyte% 10.5 % (0-10); NRBC Flagged by Analyzer 0 % (0-5); Neutrophil # 11.18 X10^3/uL (2.7-7.7); Neutrophil % 84.2 % (47-70); POSITIVE DIFFERENTIAL YES; Platelet Count 279 K/mm3 (150-450); RBC Distribution Width CV 14.5 % (11.6-14.6); RBC Distribution Width SD 49.5 fl (35.1-43.9); Red Blood Count 5.13 M/mm3 (4.6-6.2); White Blood Count 13.3 K/mm3 (4.4-11.0)
[2024-03-11 12:54] LABS: Urine Bilirubin Dipstick 1 mg/dL (Negative)
[2024-03-11 12:55] LABS: Anion Gap 7 (5-15); BUN 20 mg/dL (7-18); BUN/Creat Ratio 10.7 RATIO (10-20); Calcium,Total 9.1 mg/dL (8.5-10.1); Chloride 104 mmol/L (98-107); Creatinine, Serum 1.87 mg/dL (0.70-1.30); EST Glomerular Filtration Rate 38 mL/min (>60); Est Glom Filt Rate - Afr Amer 46 mL/min (>60); Estimated Creatinine Clearance 40.45 ml/min; Glucose 106 mg/dL (74-106); Potassium 3.9 mmol/L (3.5-5.1); Sodium Level 136 mmol/L (136-145)
[2024-03-11 12:56] LABS: White Blood Cells 0-5 SEEN /hpf (0-5)
--- NOTE | 2024-03-11 13:07 | CT_ITS ---
INDICATION: kidney stone EXAMINATION: CT ABDOMEN AND PELVIS WITHOUT CONTRAST TECHNIQUE: Helically acquired images were obtained of the abdomen and pelvis without oral or IV contrast. A radiation dose optimization technique was used for this scan. IV Contrast dosage and agent: None. Oral contrast: None. RADIATION DOSAGE (If Supplied By Facility): CTDIvol = ( 14.03 ) mGy, DLP = ( 816.84 ) mGycm COMPARISON: Prior study dated: 03/06/2024 FINDINGS: LOWER CHEST: Partially visualized left lower lobe nodule measuring about 7 mm. Persistent patchy groundglass opacities/infiltrates unchanged. Coronary calcifications. No cardiomegaly or pericardial effusion. LIVER: Homogeneous. No focal mass. GALLBLADDER AND BILIARY TREE: No calcified gallstones. No gallbladder distension or wall edema. No intra- or extrahepatic biliary ductal dilation. PANCREAS: No focal cystic or solid mass. SPLEEN: Normal size without focal cystic or solid mass. ADRENAL GLANDS: No nodules. KIDNEYS AND URETERS: Multiple bilateral nonobstructing renal stones are again seen. Persistent moderate left hydronephrosis. Previously noted 4 mm stone in the proximal left ureter is now seen in the left ureterovesical junction there is an adjacent smaller stone also in the left UVJ simple cyst in the right kidney is again seen for which no further follow-up exam is needed. PERITONEUM: No ascites or free air. No other fluid collection. BOWEL: No evidence of acute appendicitis. No stomach or bowel distension. No focal inflammatory change. LYMPH NODES: No enlarged mesenteric or retroperitoneal lymph nodes. VESSELS: Aorta is non-dilated. URINARY BLADDER: Unremarkable. REPRODUCTIVE ORGANS: Prominent prostate. Correlation with PSA level is recommended. ABDOMINAL WALL: No discrete abdominal or pelvic wall hernia. BONES: No lytic or blastic abnormality. Unchanged osseous structures. CT/Abdomen/Pelvis without Cont IMPRESSION: 1. Moderate left hydronephrosis due to 4 mm stone in the left UVJ migrated from the proximal left ureter since previous exam. 2. Adjacent smaller calcification also in the left UVJ. 3. Persistent bilateral nonobstructing renal stones. 4. 7 mm noncalcified left lower lobe nodule for which follow-up CT scan of the chest exam in 6 months is recommended, (lung RADS 3). Electronically Signed: Charlie Chakraborty MD at 13:59 EDT ,
[2024-03-11] MEDS: fentaNYL 100 MCG/2 ML Ampul 50 MCG IV (13:20)
[2024-03-11 13:56] VITALS: BP 128/57; PULSE 70; RESP 16; O2SAT 98
[2024-03-11] MEDS: HYDROcodone Bitartrate/Apap 5/325 Tablet PO (14:27)
[2024-03-11 14:30] VITALS: BP 129/80; PULSE 68; RESP 18; TEMP 36.9; O2SAT 97
== END 2024-03-11 14:32 | disposition home or self-care (01) ==
PROVIDERS: Physician Assistant; Emergency Provider Emergency Medicine; PCP Internal Medicine; Visit Provider Emergency Medicine
DX: N17.9 Acute kidney failure, unspecified (principal); I48.91 Unspecified atrial fibrillation; I10 Essential (primary) hypertension; N13.2 Hydronephrosis with renal and ureteral calculous obstruction; E78.00 Pure hypercholesterolemia, unspecified; K21.9 Gastro-esophageal reflux disease without esophagitis; Z79.899 Other long term (current) drug therapy; J45.909 Unspecified asthma, uncomplicated; Z79.51 Long term (current) use of inhaled steroids
CPT/HCPCS: 74176; 80048; 81001; 85025; 96360; 99283; J7030; A4216; J2405

== ENCOUNTER → 2024-04-08 | Outpatient (CLI) | payer OTHER, SELFPAY ==
--- NOTE | 2024-04-08 08:06 | US_ITS ---
STUDY: ABDOMINAL ULTRASOUND - RIGHT UPPER QUADRANT REASON FOR VISIT: Male, 73 years old fatty liver TECHNIQUE: Ultrasound evaluation of the right upper quadrant was performed with real-time and static ozuna-scale imaging. TECHNICAL QUALITY: Adequate. COMPARISON: None. FINDINGS: Liver: The liver measures 15.6 cm. There is increased echogenicity consistent with fatty infiltration. The bile ducts are within normal limits. There is hepatic color flow. The direction of portal flow is hepatopetal. There is no demonstrated mass lesion. Gallbladder: Normal distended gallbladder. The gallbladder wall measures 3 mm. There is a negative sonographic Pineda''s sign. There is no pericholecystic fluid. There are no gallstones. Common Bile Duct (C.B.D.): The common bile duct measures 4 mm. Pancreas: Normal size of the head, body and tail of the pancreas. There is normal echogenicity of the pancreas. There is no demonstrated pancreatic mass or cyst. Right Kidney: Normal size of the right kidney. The right kidney measures 12.0 cm. Normal renal cortex. The right cortex measures 1.2 cm. 6.3 cm cyst in the upper pole the right kidney. There are multiple echogenic foci at the corticomedullary junction of the kidney possibly consistent with nonshadowing stones. There is no right hydronephrosis. US/Abdomen Limited IMPRESSION: 1. Fatty infiltration of the liver. 2. 6 cm right renal cyst. 3. Suspect multiple nonobstructing right renal stones. Electronically Signed: Greg Danielle MD at 22:25 EDT ,
--- NOTE | 2024-04-08 08:06 | US_ITS ---
STUDY: THYROID ULTRASOUND REASON FOR EXAM: Male, 73 years old. thyroid nodule TECHNIQUE: Ultrasound evaluation of the thyroid was performed with real-time and static zouna-scale imaging. COMPARISON: 04/22/2023 FINDINGS: RIGHT LOBE: The right lobe of the thyroid gland measures 5.5 x 1.7 x 1.5 cm. There is a heterogeneous echotexture. Nodule 1: Enlarging (6 x 5 x 5 mm from 4 x 4 by 4 mm) solid hypoechoic wider than tall smoothly marginated nodule with no echogenic foci (TR 4) in the mid right lobe consistent with an adenoma. LEFT LOBE: The left lobe of the thyroid gland measures 5.2 x 2.0 x 2.2 cm. There is a heterogeneous echotexture. Nodule 1: Enlarging (24 x 9 x 18 mm from 21 x 8 x 13 mm) solid hypoechoic wider than tall smoothly marginated nodule with no echogenic foci (TR 4) in the superior left lobe for which ultrasound-guided biopsy is recommended. Nodule 2: Enlarging (23 x 20 x 17 mm from 21 x 16 x 13 mm) cystic anechoic wider than tall smoothly marginated nodule with no echogenic foci (TR 1) in the inferior left lobe consistent with a colloid cyst. ISTHMUS: The isthmus measures 2 mm thick. . The regional lymph nodes are normal. US/Thyroid IMPRESSION: Thyroiditis with an enlarging dominant nodule left lobe for which ultrasound-guided biopsy is recommended. Follow-up ultrasound is recommended in one year. Electronically Signed: Greg Danielle MD at 22:29 EDT ,
== END | disposition home or self-care (01) ==
PROVIDERS: PCP Internal Medicine; Referring Provider Internal Medicine; Visit Provider Internal Medicine
DX: K76.0 Fatty (change of) liver, not elsewhere classified (principal); E04.1 Nontoxic single thyroid nodule
CPT/HCPCS: 76536; 76705

== ENCOUNTER → 2024-04-21 | Outpatient (CLI) | payer OTHER, SELFPAY ==
[2024-04-21 15:55] LABS: Hematocrit 46.5 % (40-54); Hemoglobin 14.1 g/dL (13.0-16.5); Mean Corp Hgb Conc 30.3 g/dL (32-36); Mean Corpuscular Hgb 29.3 pg (27.0-32.0); Mean Corpuscular Volume 96.5 fL (80-94); Mean Platelet Vol. 9.9 fl (6.2-12.0); Platelet Count 324 K/mm3 (150-450); RBC Distribution Width SD 52.6 fl (35.1-43.9); Red Blood Count 4.82 M/mm3 (4.6-6.2); White Blood Count 9.2 K/mm3 (4.4-11.0)
== END | disposition home or self-care (01) ==
LOC: MTLAB 13:31
PROVIDERS: PCP Internal Medicine; Referring Provider Internal Medicine Pulmonary Disease; Visit Provider Internal Medicine Pulmonary Disease
DX: R06.02 Shortness of breath (principal); R05.9 Cough, unspecified
CPT/HCPCS: 36415; 85027

== ENCOUNTER → 2024-05-16 | Outpatient (CLI) | payer OTHER, SELFPAY ==
--- NOTE | 2024-05-16 13:30 | ASPS_PTH ---
PATIENT: [facility] BUT[facility]ER [facility] U[facility][id number] AGE/SX: 73/M ROOM: RE05/16/[address]: Dr. Chuckie Sneed MD : 1950 BED: DIS: 05/16/2024 SPEC #: [id number] RECD: 05/16/24 15:07 STATUS: KAITLIN RECherrie #: [id number] STANLEY: 05/16/24 13:[address]: Chuckie Sneed DEPT: CYTOLOGY RECD BY: Izabella Hernandez ENTERED: 05/17/24 10:14 SP TYPE: ASPIRATION OTHR DR: Dr. Tanya Pettit, DO Tissues: Thyroid gland, NOS Procedures: Special Stain Group II Cytology Other HEADER OPERATION: Left thyroid fine needle aspiration PRE-OP DIAGNOSIS: Left thyroid nodule TISSUE SUBMITTED: Left thyroid nodule (smears) DIAGNOSIS CYTOLOGY Left thyroid nodule, fine needle aspiration (smears): Consistent benign follicular/colloid nodule, [place] Category II. Adequate for evaluation. See comment. JOHN/ 05/17/2024 COMMENT Correlation with clinical, radiologic findings and appropriate follow up are necessary. The [place] System for thyroid diagnostic categorization was used in the evaluation of this case. CYTOLOGY STUDY Slides are reviewed. CYTOLOGY GROSS Received are 6 smears labeled with the patient's name and designated per the requisition as Left thyroid nodule. Submitted for staining. Mr 05/17/2024 TC:5 CPT: 26513
== END | disposition home or self-care (01) ==
LOC: LABSPEC 15:35
PROVIDERS: PCP Internal Medicine; Referring Provider Surgery; Visit Provider Surgery
DX: E03.9 Hypothyroidism, unspecified (principal)
CPT/HCPCS: 88161; 88313

== ENCOUNTER 2024-06-29 17:26 | Emergency (ER) | payer OTHER, SELFPAY ==
[2024-06-29 17:27] VITALS: BP 124/77; PULSE 90; RESP 18; TEMP 36.1; O2SAT 95; BMI 27.1
[2024-06-29 19:26] VITALS: PULSE 56; RESP 17; O2SAT 96
[2024-06-29 19:48] LABS: Absolute Lymphocyte Count 0.45 X10^3/uL (0.83-4.51); Absolute Neutrophil Count 11.4 X10^3/uL (2.0-7.7); Basophil% 0.7 % (0-1); Eosinophil# 0.27 X10^3/uL; Hematocrit 48.9 % (40-54); Hemoglobin 14.9 g/dL (13.0-16.5); Lymphocyte # 0.45 X10^3/ul (0.83-4.51); Lymphocyte % 3.3 % (19-41); Mean Corp Hgb Conc 30.5 g/dL (32-36); Mean Corpuscular Volume 95.1 fL (80-94); Mean Platelet Vol. 9.6 fl (6.2-12.0); Monocyte# 1.12 X10^3/uL; Monocyte% 8.3 % (0-10); NRBC Flagged by Analyzer 0 % (0-5); Neutrophil # 11.36 X10^3/uL (2.7-7.7); Neutrophil % 84.2 % (47-70); POSITIVE DIFFERENTIAL YES; Platelet Count 329 K/mm3 (150-450); RBC Distribution Width CV 14.8 % (11.6-14.6); RBC Distribution Width SD 51.7 fl (35.1-43.9); Red Blood Count 5.14 M/mm3 (4.6-6.2); White Blood Count 13.5 K/mm3 (4.4-11.0)
--- NOTE | 2024-06-29 20:05 | RAD_ITS ---
INDICATION: pain EXAMINATION/TECHNIQUE: X-RAY - RIGHT XR Knee Complete 4 Views or More COMPARISON: None. FINDINGS: No acute fracture or malalignment. Mild, patellofemoral compartment predominant, tricompartmental joint space narrowing and osteophytosis. No joint effusion. The soft tissues are unremarkable. RAD/Knee 4 or More Views IMPRESSION: No acute abnormalities. Mild, patellofemoral compartment predominant, tricompartmental degenerative arthrosis of the knee. Electronically Signed: Mark Valentine MD at 20:55 EDT ,
--- NOTE | 2024-06-29 20:06 | CT_ITS ---
INDICATION: right flank pain EXAMINATION: CT Abdomen And Pelvis W/O Contrast Injection TECHNIQUE: Helically acquired images were obtained of the abdomen and pelvis without the use of IV contrast. A radiation dose optimization technique was used for this scan. Oral contrast: None. COMPARISON: 12/20/2023 FINDINGS: Evaluation of the solid organs and vascular structures is limited without intravenous contrast. Visualized lung bases: Redemonstration of chronic interstitial lung changes. Liver: Unremarkable Gallbladder: Subtle fat stranding surrounding the gallbladder. Spleen: Unremarkable Pancreas: Subtle fat stranding surrounding the pancreas. Adrenal Glands: Unremarkable Kidneys: Bilateral simple renal cysts. Innumerable nonobstructing stones throughout both kidneys, largest on the right measuring 1.1 cm while the largest on the left measures 9 mm. Vasculature: Moderate aortoiliac atherosclerotic disease. GI Tract: Hiatal hernia. Lymphadenopathy: None Peritoneum: No ascites. Bladder: Collapsed. Reproductive organs: The prostate is mildly enlarged. Bones/Soft tissues: There are diffuse degenerative changes of the spine. Small right fat-containing inguinal hernia.Mild chronic compression deformity of T11 and T12. CT/Abdomen/Pelvis without Cont IMPRESSION: Subtle inflammatory changes surrounding the gallbladder. Consider right upper quadrant ultrasound. Subtle inflammatory changes surrounding the pancreas. Correlate with lipase levels for possible pancreatitis. Bilateral nonobstructing renal calculi. Small right fat-containing inguinal hernia. Mild prostatomegaly. Correlate with PSA levels. Mild chronic compression deformity of T11 and T12. Electronically Signed: Mark Valentine MD at 21:10 EDT ,
--- NOTE | 2024-06-29 20:07 | EKG12_ITS ---
Test Reason : DYSRHYTHMIA Blood Pressure : / mmHG Vent. Rate : 096 BPM Atrial Rate : 080 BPM P-R Int : 122 ms QRS Dur : 124 ms QT Int : 366 ms P-R-T Axes : 019 -55 -02 degrees QTc Int : 462 ms Sinus rhythm with Premature atrial complexes Right bundle branch block Left anterior fascicular block Bifascicular block Abnormal ECG When compared with ECG of 18-JUL-2021 19:44, Premature ventricular complexes are no longer Present Confirmed by JOSE ESCALERA, LINSEY ([id number]), acquisitions editor SEA FIGUEROA ([id number]) on 07/04/2024 11:31:43 AM Referred By: Confirmed By:LINSEY GARCIA MD
[2024-06-29 20:09] LABS: Anion Gap 8 (5-15); BUN 20 mg/dL (7-18); BUN/Creat Ratio 17.4 RATIO (10-20); Calcium,Total 9.7 mg/dL (8.5-10.1); Chloride 108 mmol/L (98-107); Creatinine, Serum 1.15 mg/dL (0.70-1.30); EST Glomerular Filtration Rate 67 mL/min (>60); Est Glom Filt Rate - Afr Amer 81 mL/min (>60); Estimated Creatinine Clearance 60.83 ml/min; Glucose 88 mg/dL (74-106); Potassium 3.5 mmol/L (3.5-5.1); Sodium Level 141 mmol/L (136-145)
[2024-06-29] MEDS: Acetaminophen 325 MG Tablet 650 MG PO (20:20)
[2024-06-29 20:35] LABS: Squamous Epithelial Cells - UA 0 SEEN /hpf (0-5)
[2024-06-29 20:39] LABS: Color, Urine Yellow (Yellow); Glucose, Dipstick Normal (Normal); Ketone-Dipstick 15 mg/dl (Negative); Leukocyte Esterase-Dipstick 25 /ul (Negative); Nitrite-Dipstick Negative (Negative); Occult Blood-Urine 10 /ul (Negative); Protein-Dipstick 30 mg/dl (Negative); Specific Gravity, Urine 1.025 (1.002-1.030); Urine Bilirubin Dipstick Negative (Negative); Urine Clarity Clear (Clear); Urine Urobilinogen Normal (Normal)
[2024-06-29 20:53] LABS: Bacteria 1+ /hpf (None Seen); Mucous, Urine 2+ /hpf (<or=2+); Red Blood Cells-Urine 0-5 SEEN /hpf (0-5); White Blood Cells 0-5 SEEN /hpf (0-5)
--- NOTE | 2024-06-29 20:57 | EDS_ITS ---
HPI History of Present Illness Chief Complaint: Flank Pain Informant: patient Narrative Narrative: Patient is a 73-year-old male with history of prior kidney stones, proximal atrial fibrillation (no longer on Eliquis), syncope, and hypertension presenting from home for worsening right-sided back pain, concern for kidney stone as well as worsening right knee pain. Patient notes that he thought he was having back spasms last weekend and that was causing his back pain. Yesterday (he urinates in the urinal) he noticed 6-8 small kidney stones between 1 mm and 3 mm that he passed. He knew she was feeling better but entirely having increased pain today. He notes his urine has been dark does not notice any obvious blood. He saw his chiropractor who was concerned it could be a kidney stone that is larger and suggested he come to the emergency room. Patient did take ibuprofen today with no help. Pain is worse with movement. Does not radiate. Has no associated nausea or vomiting. In addition patient start having recurrent right knee pain this week. He notes that when he was in [place] in April he was having right knee pain but it resolved and then returned again this week. Denies any new injury. Finally patient mentions to me that he has syncopal episode a week ago. He states he attributed to not eating or drinking for 11 hours. Has had no further symptoms of this since. Denies any chest pain difficulty breathing. No other complaints or concerns at this time. Does not believe he had this at [facility] Medical History BOOP (bronchiolitis obliterans with organizing pneumonia) Wears glasses High cholesterol Easy bruising Back pain Injury of head and neck Blackout Gastric reflux Non-smoker On home oxygen therapy Hoarseness Chronic cough History of echocardiogram Hypertension History of stress test Cardiology follow-up encounter History of atrial fibrillation Atrial fibrillation COVID-19 Osteoporosis Kidney stones Atrial fibrillation RBBB (right bundle branch block) Antisynthetase syndrome Essential hypertension Mixed hyperlipidemia Asthma Interstitial lung disease GERD (gastroesophageal reflux disease) Fatty liver BPH (benign prostatic hyperplasia) Lung nodule Vasovagal syncope Abnormal cardiac CT angiography Home Medications ?Medication ?Instructions ?Recorded ?Last Taken ?Type cyanocobalamin (vitamin B-12) 500 500 mcg PO DAILY 07/14/21 Unknown History mcg tablet denosumab 60 mg/mL subcutaneous 60 mg subcut [id number] 07/14/21 Unknown History syringe (Prolia) pantoprazole 40 mg tablet,delayed 40 mg PO DAILY 07/14/21 Unknown History release ascorbic acid (vitamin C) 500 mg 500 mg PO DAILY 01/01/22 Unknown History tablet budesonide 0.5 mg/2 mL suspension 0.5 mg inhalation BID 01/01/22 Unknown History for nebulization (Pulmicort) cetirizine 10 mg tablet (Zyrtec) 10 mg PO DAILY PRN allergies 01/01/22 Unknown History cholecalciferol (vitamin D3) 75 150 mcg PO DAILY 01/01/22 Unknown History mcg (3,000 unit) tablet fluticasone propionate 50 1 spray intranasal DAILY 01/01/22 Unknown History mcg/actuation nasal spray,suspension (Flonase Allergy Relief) lactobacillus combination no.9 4 4,000 mmu cells PO DAILY 01/01/22 Unknown History billion cell capsule (Adult 50 Plus Probiotic) sulfamethoxazole 400 1 tab PO .3XW 01/01/22 Unknown History mg-trimethoprim 80 mg tablet zinc gluconate 30 mg tablet 30 mg PO DAILY 01/01/22 Unknown History montelukast 10 mg tablet 10 mg PO DAILY 05/12/23 Unknown History (Singulair) mycophenolate mofetil 500 mg tablet 3,000 mg PO BID AUTOIMMUNE DISEASE 05/12/23 Unknown History diltiazem HCl 120 mg 120 mg PO DAILY #90 caps 11/24/23 Unknown Rx capsule,extended release 24 hr prednisone 1 mg tablet 10 mg PO DAILY 12/09/23 Unknown History rosuvastatin 5 mg tablet 10 mg PO DAILY 12/09/23 Unknown History apixaban 5 mg tablet (Eliquis) 5 mg PO BID #60 tabs 12/30/23 Unknown Rx metoprolol succinate 25 mg See Rx Instructions .Route 01/27/24 Unknown Rx tablet,extended release 24 hr .COMPLEX #90 TABLETS hydrocodone-acetaminophen 5-325mg 1 tab PO Q6H PRN PRN Pain 3 days 03/06/24 Unknown Rx 5mg-325mg #10 TABLETS hydrocodone-acetaminophen 5-325mg 1 tab PO Q6H PRN pain 3 days #12 03/11/24 Unknown Rx 5mg-325mg tabs tizanidine 2 mg capsule (Zanaflex) 2 - 4 mg (1 - 2 x 2 mg) PO Q8H PRN 06/29/24 Unknown Rx muscle spasticity #20 caps Allergy/AdvReac Type Severity Reaction Status Date / Time monosodium glutamate Allergy Abd Verified 06/29/24 17:27 cramps/diarrhea Penicillins (PCN) Allergy Rash Verified 06/29/24 17:27 allopurinol AdvReac Unknown cough Verified 06/29/24 17:27 morphine AdvReac Other Verified 06/29/24 17:27 tamsulosin (From Flomax) AdvReac Other Verified 06/29/24 17:27 Family History Grandfather CVA (cerebral vascular accident) Grandmother Congestive heart failure Grandmother Cardiac pacemaker in situ Mother Heart disease Hypertension Father Heart disease Cardiac arrhythmia Surgical History Hx of cystoscopy History of umbilical hernia repair History of inguinal hernia repair Social History household members: spouse Smoking Status: Never smoker alcohol intake: current details: Rare substance use type: does not use caffeine: Yes Type: coffee Number of servings: 1 ROS ROS ED Constitutional Constitutional ED: Denies chills or fever(s) Cardiovascular Cardiovascular: Denies chest pain Respiratory/Chest Respiratory/Chest: Denies cough or dyspnea Gastrointestinal Gastrointestinal: Denies abdominal pain, diarrhea, melena or nausea Genitourinary Genitourinary ED: Denies dysuria or hematuria Musculoskeletal Musculoskeletal: Reports back pain and other Details: Right knee pain Integumentary Denies rash Neurologic Neurologic: Denies headache(s) Hematologic/Lymphatic Hematologic/Lymphatic: Reports other EXAM Physical Exam Const Vital Signs: 06/29/24 17:27 06/29/24 19:26 06/29/24 21:00 Temperature 97 F L Temperature Source Temporal Pulse Rate 90 56 L 62 Respiratory Rate 18 17 17 Blood Pressure 124/77 H 115/47 L Blood Pressure Mean 92 69 Pulse Ox 95 96 98 Oxygen Delivery Method Room Air Room Air Room Air 06/29/24 23:00 Temperature Temperature Source Pulse Rate 72 Respiratory Rate 16 Blood Pressure 118/55 L Blood Pressure Mean 76 Pulse Ox 95 Oxygen Delivery Method Room Air Positive well nourished and well developed General Appearance ED: well developed and NAD HEENT Reports moist mucous membranes Eyes PERRL and EOMs intact bilaterally Neck supple and no JVD Chest Wall inspection of chest normal and palpation of chest normal Resp normal respiratory effort and clear to auscultation bilaterally Cardio regular rate and no murmurs Rhythm: abnormal rhythm GI normal to inspection, nondistended, normoactive bowel sounds and non-tender Back/Spine no CVA tenderness Back/Spine Narrative: No reproducible CVA tenderness with patient does point to his right CVA area as his location of pain Thoracic Spine / Upper Back: Negative for thoracic spinal tenderness or paraspinal muscle tenderness Lumbar Spine / Lower Back: Negative for lumbar spinal tenderness Extremity normal to inspection Extremity Narrative: No obvious deformity or effusion noted of the right knee. Patient points to the anterior superior and medial aspect of the knee as his area of pain. No palpable cords appreciated. No peripheral edema appreciated. Normal range of motion of the knee. Normal extensor mechanism. General Extremety ED: Negative for edema or tenderness General Extremity: Negative for edema Neuro oriented x3 Sensorium / Orientation: alert Motor Exam: Negative for general weakness Psych mental status grossly normal Skin no rashes or lesions noted and no wounds MDM MDM MDM Narrative Medical decision making narrative: Patient's your evaluated for worsening right sided back pain. It appears to be more muscle skeletal as it is reproducible with movements however patient also states that he passed some kidney stones yesterday and has a history of kidney stones. Notes his urine has been darker. He tells me he has syncopal episode legal. I did obtain an EKG as well which did not show any significant abnormalities. As this was a week ago I do not think the syncope requires further workup at this time. He has a mild leukocytosis of 13.5 of uncertain clinical significance. I do not see an obvious source of infection. CBC is largely normal and his kidney function is at his baseline at 1.15. Urinalysis showed 1+ bacteria but also only shows 0-5 white blood cells. Will send for culture but lower suspicion for urinary tract infection. No significant hematuria. CT flank study does not show any obstructing calculi of the kidneys. There are bilateral nonobstructing renal calculi which patient is informed of. He does have some subtle inflammatory changes around his gallbladder and pancreas. Because of this and with his right sided pain we will add on a right upper quadrant ultrasound, lipase and liver panel. This is all normal. X-ray of the knee was obtained as he has been having intermittent knee pain. This is reviewed by myself as well as radiology and shows arthritic changes. He is not having significant effusion or signs of a septic joint. No short arc r timi of motion pain. Patient was given Tylenol in the ER, declines anything stronger. He is not given a Lidoderm patch as I do suspect his pain is muscle skeletal especially given his largely negative workup. Remains hemodynamically stable in the ER. We discharged home with a course of tizanidine. He is agreeable this plan of care. Discharged home in stable condition. Encouraged to follow-up outpatient with his primary care doctor. Counseled that he will be contacted if his urine culture is positive. Given is not having fever or acute dysuria and he is already on 3 times a week Bactrim we will hold off on antibiotics at this time. Lab Data Labs: Laboratory Results - last 24 hr 06/29/24 06/29/24 19:03 20:25 WBC 13.5 H RBC 5.14 Hgb 14.9 Hct 48.9 MCV 95.1 H MCH 29.0 MCHC 30.5 L RDW Std Deviation 51.7 H RDW Coeff of Opal 14.8 H Plt Count 329 MPV 9.6 Immature Gran % (Auto) 1.500 H Neut % (Auto) 84.2 H Lymph % (Auto) 3.3 L [place] % (Auto) 8.3 Eos % (Auto) 2.0 Baso % (Auto) 0.7 Absolute Neuts (auto) 11.4 H Absolute Lymphs (auto) 0.45 L Nucleated RBC % 0 Sodium 141 Potassium 3.5 Chloride 108 H Carbon Dioxide 25.0 Anion Gap 8 BUN 20 H Creatinine 1.15 Estim Creat Clear Calc 60.83 Est GFR (MDRD) Af Amer 81 Est GFR (MDRD) Non-Af 67 BUN/Creatinine Ratio 17.4 Glucose 88 Calcium 9.7 Total Bilirubin 0.60 Direct Bilirubin 0.24 AST 11 L ALT 21 Alkaline Phosphatase 84 Total Protein 7.6 Albumin 3.5 Globulin 4.1 Lipase 45 Urine Color Yellow Urine Clarity Clear Urine pH 6.0 Ur Specific [place] 1.025 Urine Protein 30 H Urine Glucose (UA) Normal Urine Ketones 15 H Urine Occult Blood 10 H Urine Nitrite Negative Urine Bilirubin Negative Urine Urobilinogen Normal Ur Leukocyte Esterase 25 H Urine RBC 0-5 SEEN Urine WBC 0-5 SEEN Ur Squamous Epith Cells 0 SEEN Urine Bacteria 1+ Urine Mucus 2+ Radiography Diagnostic Testing: Clinical Impression(s) from Imaging Studies Knee X-Ray 06/29/24 20:05 IMPRESSION: No acute abnormalities. Mild, patellofemoral compartment predominant, tricompartmental degenerative arthrosis of the knee. Electronically Signed: Mark Valentine MD at 20:55 EDT , Abdomen/Pelvis CT 06/29/24 20:06 IMPRESSION: Subtle inflammatory changes surrounding the gallbladder. Consider right upper quadrant ultrasound. Subtle inflammatory changes surrounding the pancreas. Correlate with lipase levels for possible pancreatitis. Bilateral nonobstructing renal calculi. Small right fat-containing inguinal hernia. Mild prostatomegaly. Correlate with PSA levels. Mild chronic compression deformity of T11 and T12. Electronically Signed: Mark Valentine MD at 21:10 EDT , Gallbladder Ultrasound 06/29/24 21:25 IMPRESSION: 1. No evidence of cholelithiasis or cholecystitis. 2. Fatty infiltration of the liver. Electronically Signed: Curry Hagen DO at 22:23 EDT , Rhythm Strip Rhythm Strip: Sinus Rhythm Rate: 96 Ectopy: None EKG Initial EKG: Attestation: I personally reviewed and interpreted this EKG as follows: Interpretation: Sinus Rhythm Comments: Normal sinus rhythm rate of 96 bpm with PACs Right bundle branch block and left anterior fascicular block Left axis deviation Normal ST segments Discharge Plan Triage Chief Complaint: Flank Pain ED Provider: Kaelyn Park Dx/Rx/DC Orders Clinical Impression: Acute right-sided back pain, Osteoarthritis of right knee Instructions: ED Flank Pain, Uncertain Cause Prescriptions: New tizanidine [Zanaflex] 2 mg capsule 2 - 4 mg PO Q8H PRN (Reason: muscle spasticity) Qty: 20 0RF No Action pantoprazole 40 mg tablet,delayed release (DR/EC) 40 mg PO DAILY Prolia 60 mg/mL syringe 60 mg subcut [id number] cyanocobalamin (vitamin B-12) 500 mcg tablet 500 mcg PO DAILY zinc gluconate 30 mg tablet 30 mg PO DAILY cholecalciferol (vitamin D3) 75 mcg (3,000 unit) tablet 150 mcg PO DAILY sulfamethoxazole-trimethoprim 400-80 mg tablet 1 tab PO .3XW ascorbic acid (vitamin C) 500 mg tablet 500 mg PO DAILY Adult 50 Plus Probiotic 4 billion cell capsule 4,000 mmu cells PO DAILY Rx Instructions: administer with a meal budesonide [Pulmicort] 0.5 mg/2 mL suspension for nebulization 0.5 mg inhalation BID cetirizine [Zyrtec] 10 mg tablet 10 mg PO DAILY PRN (Reason: allergies) fluticasone propionate [Flonase Allergy Relief] 50 mcg/actuation spray,suspension 1 spray intranasal DAILY Rx Instructions: administer into each nostril mycophenolate mofetil 500 mg tablet 3,000 mg PO BID prednisone 1 mg tablet 10 mg PO DAILY montelukast [Singulair] 10 mg tablet 10 mg PO DAILY rosuvastatin 5 mg tablet 10 mg PO DAILY hydrocodone-acetaminophen 5-325 mg tablet 1 tab PO Q6H PRN (Reason: pain) 3 Days Qty: 12 0RF hydrocodone-acetaminophen [hydrocodone-acetaminophen] 5-325 mg tablet 1 tab PO Q6H PRN PRN (Reason: Pain) 3 Days Qty: 10 0RF diltiazem HCl 120 mg capsule,extended release 24hr 120 mg PO DAILY Qty: 90 3RF Eliquis 5 mg tablet 5 mg PO BID Qty: 60 11RF metoprolol succinate 25 mg tablet extended release 24 hr See Rx Instructions .ROUTE .COMPLEX Qty: 90 3RF Dose Instruction: take 1 tablet orally daily Rx Instructions: take 1 tablet orally daily Primary Care Provider: Wilver,Tanya Referrals: Fast,Tanya, DO [Primary Care Provider] - Activity Restrictions/Additional Instructions: You do not have any large or residual kidney stones that are actively passing. There are other stones that are still in your kidneys at this time with these do not cause him pain. Your ultrasound and lab work for your gallbladder and pancreas were normal. Will treat this as muscular pain in your back. Urine culture is pending at this time as there was some slight abnormalities of the urinalysis but it was not highly consistent with UTI. We will contact you if you require antibiotics. Please return if you have a progression or worsening of your symptoms. Make sure drinking plenty of fluids. As we discussed you can also use [id number] topical Lidoderm patches (4% extra strength Salonpas) and Tylenol for pain. Print Language: Moroccan Disposition Disposition: Home, Self Care
[2024-06-29 21:00] VITALS: BP 115/47; PULSE 62; RESP 17; O2SAT 98
--- NOTE | 2024-06-29 21:25 | US_ITS ---
INDICATION: ABN CT EXAMINATION: Ultrasound US Abdomen RUQ (limited) TECHNIQUE: [place] Toro scale and color doppler imaging was performed of the right upper quadrant. COMPARISON: 04/08/[address] from earlier same day. FINDINGS: LIVER: Diffuse increased echogenicity. No evidence of a mass. No intrahepatic duct dilation. GALLBLADDER: Mildly distended. No evidence of a stone or sludge. Normal wall thickness. No pericholecystic fluid. Negative sonographic Pineda''s sign. COMMON BILE DUCT: Normal measuring 3 mm in diameter. PANCREAS: Visualized portions of the pancreas appear normal. RIGHT KIDNEY: Stable 6.3 cm simple cyst with no follow-up recommended. Nonobstructing renal stones. FREE FLUID: No free fluid in the right upper quadrant. US/Gallbladder IMPRESSION: 1. No evidence of cholelithiasis or cholecystitis. 2. Fatty infiltration of the liver. Electronically Signed: Curry Hagen DO at 22:23 EDT ,
[2024-06-29 21:45] LABS: AST(SGOT) 11 U/L (15-37); Alanine Aminotransfer ALT/SGPT 21 U/L (16-61); Albumin, Serum 3.5 g/dL (3.2-5.0); Alkaline Phosphatase 84 U/L (45-117); Bilirubin, Direct 0.24 mg/dL (0.00-0.30); Globulin 4.1 g/dL (2.2-4.2); Lipase 45 U/L (13-75); Protein, Total 7.6 g/dL (6.4-8.2)
[2024-06-29 23:00] VITALS: BP 118/55; PULSE 72; RESP 16; O2SAT 95
[2024-06-30] MEDS: Lidocaine 5% Patch 1 PATCH TOPICAL (00:05)
[2024-06-30 00:06] VITALS: BP 133/72; PULSE 81; RESP 15; TEMP 36.8; O2SAT 97
== END 2024-06-30 00:08 | disposition home or self-care (01) ==
PROVIDERS: Emergency Provider Emergency Medicine; PCP Internal Medicine; Visit Provider Emergency Medicine
DX: M54.9 Dorsalgia, unspecified (principal); I48.0 Paroxysmal atrial fibrillation; M17.11 Unilateral primary osteoarthritis, right knee; I10 Essential (primary) hypertension; N20.0 Calculus of kidney; E78.2 Mixed hyperlipidemia; R55 Syncope and collapse; Z87.442 Personal history of urinary calculi; K21.9 Gastro-esophageal reflux disease without esophagitis; J45.909 Unspecified asthma, uncomplicated
CPT/HCPCS: 73564; 74176; 76705; 80048; 80076; 81001; 83690; 85025; 87086; 87088; 93005; 99283

== ENCOUNTER 2024-08-22 15:35 | Inpatient (IN) | payer OTHER, MEDICARE, SELFPAY ==
[2024-08-22] VITALS (10 sets, daily range): BP systolic 97–128; BP diastolic 61–94; PULSE 69–108; RESP 18–27; TEMP 36–36.9; O2SAT 91–98; BMI 28.4; BMI 26.0
--- NOTE | 2024-08-22 16:45 | EDS_ITS ---
HPI History of Present Illness Chief Complaint: Shortness of Breath Narrative Narrative: Chief complaint and HPI: Shortness of breath. 73-year-old male with history of antisynthetase syndrome presents for evaluation of shortness of breath from dermatology office. We got a call from the patient's production support manager in which he is seeing her for shingles of the left upper extremity saying that the patient is short of breath in office and would like him further evaluated. Patient states he is short of breath at baseline due to his syndrome. He states that it worsens when he is taken off mycophenolate. He states that he was taken off this Wednesday by his doctor, Dr. Pettit due to his shingles. He is currently on gabapentin and Valtrex Patient states that he did not want to come to the emergency department. He states that he has no concerns. He denies any fever, chills, URI symptoms, cough, abdominal pain, nausea, vomiting. He is currently on room air and not hypoxic. Review of systems: See HPI Medications: As listed on the chart Allergies: As listed on the chart PFSH: Per chart Vital signs: As listed on the chart. Reviewed. Physical exam: Gen: A&O x3, NAD Head: Normocephalic, atraumatic Eyes: No sclera icterus, conjunctiva clear ENT: Moist mucous membranes Neck: Trachea midline, No JVD CV: RRR, no murmurs, no peripheral edema Resp: Lungs CTA BL, no w/r/c GI: Abd soft, non-distended, non-tender, no r/r/g Musc: Full ROM, no deformity Skin: Warm, shingles rash to the left upper extremity and anterior chest Neuro: Alert, oriented, grossly intact, sensation intact Psych: Cooperative, appropriate mood and affect [facility] Medical History Abscess of left thigh BOOP (bronchiolitis obliterans with organizing pneumonia) Wears glasses High cholesterol Easy bruising Back pain Injury of head and neck Blackout Gastric reflux Non-smoker On home oxygen therapy Hoarseness Chronic cough History of echocardiogram Hypertension History of stress test Cardiology follow-up encounter History of atrial fibrillation Atrial fibrillation COVID-19 Osteoporosis Kidney stones Atrial fibrillation RBBB (right bundle branch block) Antisynthetase syndrome Essential hypertension Mixed hyperlipidemia Asthma Interstitial lung disease GERD (gastroesophageal reflux disease) Fatty liver BPH (benign prostatic hyperplasia) Lung nodule Vasovagal syncope Abnormal cardiac CT angiography Home Medications ?Medication ?Instructions ?Recorded ?Last Taken ?Type cyanocobalamin (vitamin B-12) 500 500 mcg PO DAILY 07/14/21 Unknown History mcg tablet denosumab 60 mg/mL subcutaneous 60 mg subcut [id number] low calcuim 07/14/21 Unknown History syringe (Prolia) pantoprazole 40 mg tablet,delayed 40 mg PO DAILY 07/14/21 Unknown History release budesonide 0.5 mg/2 mL suspension 0.5 mg inhalation BID sob 01/01/22 Unknown History for nebulization (Pulmicort) cetirizine 10 mg tablet (Zyrtec) 10 mg PO DAILY PRN allergies 01/01/22 Unknown History cholecalciferol (vitamin D3) 75 150 mcg PO DAILY 01/01/22 Unknown History mcg (3,000 unit) tablet lactobacillus combination no.9 4 4,000 mmu cells PO DAILY 01/01/22 Unknown History billion cell capsule (Adult 50 Plus Probiotic) zinc gluconate 30 mg tablet 30 mg PO DAILY supplement 01/01/22 Unknown History montelukast 10 mg tablet 10 mg PO DAILY 05/12/23 Unknown History (Singulair) mycophenolate mofetil 500 mg tablet 3,000 mg PO BID AUTOIMMUNE DISEASE 05/12/23 Unknown History diltiazem HCl 120 mg 120 mg PO DAILY #90 caps 11/24/23 Unknown Rx capsule,extended release 24 hr prednisone 1 mg tablet 10 mg PO DAILY 12/09/23 Unknown History rosuvastatin 5 mg tablet 10 mg PO DAILY 12/09/23 Unknown History metoprolol succinate 25 mg See Rx Instructions .Route 01/27/24 Unknown Rx tablet,extended release 24 hr .COMPLEX #90 TABLETS gabapentin 100 mg capsule 100 mg PO TID 08/22/24 Unknown History valacyclovir 1 gram tablet 1,000 mg PO TID 08/22/24 Unknown History Allergy/AdvReac Type Severity Reaction Status Date / Time monosodium glutamate Allergy Abd Verified 08/22/24 15:36 cramps/diarrhea Penicillins (PCN) Allergy Rash Verified 08/22/24 15:36 allopurinol AdvReac Unknown cough Verified 08/22/24 15:36 morphine AdvReac Other Verified 08/22/24 15:36 tamsulosin (From Flomax) AdvReac Other Verified 08/22/24 15:36 Family History Grandfather CVA (cerebral vascular accident) Grandmother Congestive heart failure Grandmother Cardiac pacemaker in situ Mother Heart disease Hypertension Father Heart disease Cardiac arrhythmia Surgical History History of incision and drainage Hx of cystoscopy History of umbilical hernia repair History of inguinal hernia repair Social History household members: spouse Smoking Status: Never smoker alcohol intake: current details: Rare substance use type: does not use caffeine: Yes Type: coffee Number of servings: 1 EXAM Physical Exam Const Vital Signs: 08/22/24 15:36 08/22/24 16:40 08/22/24 17:02 Temperature 96.8 F L Temperature Source Temporal Pulse Rate 69 90 Respiratory Rate 18 18 Respiratory Effort Short of Breath Respiratory Depth Normal Respiratory Pattern Normal Blood Pressure 97/66 105/64 Blood Pressure Mean 76 77 Pulse Ox 96 95 Oxygen Delivery Method Room Air Room Air Room Air 08/22/24 18:00 08/22/24 18:51 08/22/24 19:00 Temperature Temperature Source Pulse Rate 105 H 101 H 104 H Respiratory Rate 24 H 27 H 21 H Respiratory Effort Respiratory Depth Respiratory Pattern Blood Pressure 121/77 H 105/63 118/63 Blood Pressure Mean 91 77 81 Pulse Ox 93 93 98 Oxygen Delivery Method Room Air Room Air Room Air 08/22/24 20:00 08/22/24 20:42 08/22/24 20:48 Temperature 98.1 F Temperature Source Pulse Rate 97 108 H 80 Respiratory Rate 26 H 18 20 H Respiratory Effort Respiratory Depth Respiratory Pattern Blood Pressure 121/94 H 128/61 H 113/72 Blood Pressure Mean 103 83 85 Pulse Ox 92 91 91 Oxygen Delivery Method Room Air Room Air MDM MDM MDM Narrative Medical decision making narrative: 73-year-old male with history of mycophenolate antisynthetase syndrome with baseline shortness of breath presents for evaluation of shortness of breath. Patient was sent over by his production support manager. Patient states he has no concerns of his shortness of breath. He denies any other symptoms. He states that this is his baseline shortness of breath when he gets taken off of his mycophenolate for his syndrome. Patient states that he does not want any further workup with labs or x-ray. His vitals are stable on room air. However I do recommend further workup. Patient is declining. I did contact Dr. Pettit which is the number the patient gave me at [phone]. Physician did not answer the phone. I did leave a message. Dr. Pettit called me back about the patient. She agrees with further workup. Dr. Pettit states that she is worried about the patient as he had elevated white count on outpatient labs. She states his shingles is also progressing. She states she was concerned about possible cellulitis of the shingles which is why she sent the patient to dermatology. Talking to the patient, dermatology had no concerns for cellulitis. On chart review, lab work performed today shows a leukocytosis of 17.5. He has mild renal insufficiency with a creatinine of 1.36. This has been higher in the past. He states he has been eating and drinking well. His CRP is elevated at 83.7. ESR 51. UA is positive for UTI. Patient was educated on recommendation of chest x-ray and further infectious workup given that his shingles have been spreading. After much convincing he agrees to further workup. Will give him a dose of Rocephin for his UTI and obtain urine culture. NS bolus. Infectious workup ordered including lactic acid, blood cultures, urine culture, cardiac/shortness of breath workup. Differential diagnosis includes but is not limited to pneumonia, viral illness, symptomatic antisynthetase syndrome, UTI, electrolyte abnormality, KATHERINE, ACS, CHF, PE. Lactic acid elevated at 2.8. Troponin unremarkable. BNP unremarkable. D-dimer elevated at 0.94. CTA chest ordered to assess for PE. CTA chest is negative for PE or dissection however patient does have bilateral groundglass opacities/infiltrates worse on the right side could reflect edema versus pneumonia. Patient also has a left lobe thyroid nodule which will need to be worked up further outpatient. Given concern for pneumonia with his shortness of breath, lactic acidosis, leukocytosis azithrom ycin was added to Rocephin to cover for community-acquired pneumonia. However other than shortness of breath, patient is denying any pneumonia type symptoms. Patient will warrant admission for further management. All results were discussed with the patient and his as well as with his family. They are all agreement with the plan. Hospitalist service, Dr. Beasley accepted admission. EKG: Interpreted by me/EM physician: EKG shows normal sinus rhythm with PACs. Patient has a known right bundle branch block. Diagnostic: Interpreted by me/EM physician: Chest x-ray without effusion, pulmonary edema, cardiomegaly, obvious pneumonia Impression: 1. Concern for possible pneumonia 2. UTI 3. Shingles infection 4. Autoimmune lung disease, antisynthetase syndrome 5. Incidental left thyroid nodule Lab Data Labs: Laboratory Results - last 24 hr 08/22/24 18:00 D-Dimer Quant (PE/DVT) 0.94 H* Lactic Acid 2.8 H* Magnesium 2.1 Troponin I High Sens 7 B-Natriuretic Peptide < 2.0 Procalcitonin 0.19 H Radiography Diagnostic Testing: Clinical Impression(s) from Imaging Studies Chest X-Ray 08/22/24 17:23 IMPRESSION: Atelectatic changes or scarring in the left lung base. Electronically Signed: Charlie Chakraborty MD at 17:54 EDT , Chest CTA 08/22/24 19:07 IMPRESSION: 1. No evidence of pulmonary embolism or aortic dissection. 2. Mild patchy bilateral groundglass opacities/infiltrates worse on the right side could reflect pulmonary edema or pneumonia. 3. Left lobe thyroid nodule for which correlation with nonemergent ultrasound is recommended. Electronically Signed: Charlie Chakraborty MD at 19:57 EDT , Discharge Plan Disposition Disposition: Acute Care Hospital [facility] Discharge Date/Time: 08/22/24 21:29
--- NOTE | 2024-08-22 17:23 | RAD_ITS ---
INDICATION: Shortness of breath EXAMINATION/TECHNIQUE: X-RAY - XR Chest 2 Views COMPARISON: Prior study dated: 01/27/2023 FINDINGS: LINES/DEVICES: None. LUNGS: Hypoventilatory changes. Atelectatic changes or scarring in the left lung base unchanged. No focal infiltrate is seen. No evidence of pleural effusions. MEDIASTINUM AND CARDIOVASCULAR STRUCTURES: Cardiac silhouette not enlarged. Central airways and mediastinal contour are unremarkable. BONES AND SOFT TISSUES: Stable soft tissues and osseous structures. RAD/Chest PA and Lateral IMPRESSION: Atelectatic changes or scarring in the left lung base. Electronically Signed: Charlie Chakraborty MD at 17:54 EDT ,
--- NOTE | 2024-08-22 17:34 | EKG12_ITS ---
Test Reason : SOB Blood Pressure : / mmHG Vent. Rate : 099 BPM Atrial Rate : 089 BPM P-R Int : 116 ms QRS Dur : 114 ms QT Int : 350 ms P-R-T Axes : 015 -65 -09 degrees QTc Int : 449 ms Sinus rhythm with Premature atrial complexes Right bundle branch block Left anterior fascicular block Bifascicular block Abnormal ECG Confirmed by JOSE ESCALERA, LINSEY ([id number]), social media editor SEA FIGUEROA ([id number]) on 08/24/2024 1:18:24 PM Referred By: Confirmed By:LINSEY GARCIA MD
[2024-08-22 18:33] LABS: Troponin-I HS 7 pg/mL (3.0-78.0)
[2024-08-22] MEDS: Ceftriaxone 1 GM/50 ML BAG IV (18:33)
[2024-08-22] MEDS: 0.9% Normal Saline (1000mL) 1,000 ML 999 ML IV (18:34)
[2024-08-22 18:36] LABS: Lactic Acid 2.8 mmol/L (0.4-1.9)
[2024-08-22 18:53] LABS: D-Dimer Quantitative (DVT/PE) 0.94 FEU/ug/m (0.27-0.49)
--- NOTE | 2024-08-22 19:07 | CT_ITS ---
STUDY: CTA CHEST REASON FOR EXAM: Male, 73 years old. Assess for PE RADIATION DOSAGE (If Supplied By Facility): CTDIvol = ( 13.86 ) mGy, DLP = ( 446.58 ) mGycm TECHNIQUE: The examination was performed with the intravenous administration of IV 100mL [id number]-370. Post-processing of the angiographic images was performed, with multiplanar reformation and 3D reconstruction. The protocol utilizes one or more of the following dose reduction techniques: automated exposure control, adjustment of mA and/or kV according to patient size,and/or use of iterative reconstruction technique. COMPARISON: No relevant prior comparison study available FINDINGS: Normal enhancement of the main pulmonary artery and right and left pulmonary arteries. Normal enhancement of the bilateral peripheral pulmonary arteries. There is no demonstrated pulmonary embolism. Atherosclerotic calcifications and mild tortuosity of the thoracic aorta without evidence of aneurysm. There is no demonstrated aortic dissection. Normal heart and pericardium. There are calcifications of the coronary arteries. Few small mediastinal and bilateral hilar nodes. No evidence of adenopathy. 2.3 cm hypodense nodule in the left lobe of the thyroid gland. Correlation with ultrasound is recommended. Probable additional smaller nodules. Normal visualized trachea and bronchi. The lungs are well expanded. Mild hazy patchy groundglass opacities in the right lung and left lower lung could reflect early infiltrate or edema. No focal consolidation. There are no pleural effusions. Normal chest wall structures. There are degenerative changes of thoracic spine. The visualized portions of the upper abdomen demonstrate partially visualized bilateral renal cysts appears to be simple. Densities in both kidneys likely could represent nonobstructing stones partially visualized on this examination. CT/CTA Chest W/WO Contrast IMPRESSION: 1. No evidence of pulmonary embolism or aortic dissection. 2. Mild patchy bilateral groundglass opacities/infiltrates worse on the right side could reflect pulmonary edema or pneumonia. 3. Left lobe thyroid nodule for which correlation with nonemergent ultrasound is recommended. Electronically Signed: Charlie Chakraborty MD at 19:57 EDT ,
--- NOTE | 2024-08-22 20:39 | PCM.HP.STD ---
HPI - General General Date of Admission: 08/22/24 Date of Service: 08/22/24 Chief Complaint: Dyspnea, recent shingles infection HPI Narrative The patient is a 73 y/o M w/ PMHx: GERD, HTN, HLD, PAF, Asthma, Autoimmune Lung Disease/Antisynthetase syndrome/Interstitial Lung Disease/Asthma, BPH who presents to the [facility] ED on 08/22/23 with history of recent evaluation at his dermatology office where he was being evaluated for shingles and left upper extremity with complaints at that time of dyspnea with concern for his worsening status possibly secondary to recent hold on mycophenolate as this was temporarily stopped on Wednesday given his recent singles bout and placed on gabapentin and Valtrex at that time with improvement with no recent fevers or chills or any URI type symptoms and not requiring any oxygen supplementation but concerns about a status prompting referral to the ED to be cautious. Workup earlier in the day included CBC with WBC 17.5, hemoglobin 15.6, platelets 424 with left shift and lymphopenia, ESR 51, CRP 83.70, CMP with BUN/creatinine 14/1.36, GFR 55, glucose 138, calcium 10.3, hepatic profile not marked appearing, urinalysis noted to be cloudy with specific rubbery 1.020, protein 30, occult blood 25, negative nitrite, leukocyte Estrace 100 with urine WBCs 5-10 with 2+ urine bacteria with urine culture requested at that time now representing with additional labs including D-dimer 0.94, lactic acid 2.8, troponin 7, repeat urine culture as well as blood cultures pending per current ED evaluation, chest x-ray with atelectatic changes with scarring in the left lung base, chest CTA with no evidence of pulmonary embolism or dissection, mild patchy bilateral ground-glass opacities/infiltrates worse on the right side possibly pulmonary edema versus pneumonia, left lobe thyroid nodule. In the ED patient ministered 1 L normal saline, azithromycin 500 mg IV x 1, Rocephin 1 g IV x 1. 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 [facility] Medical History Abscess of left thigh BOOP (bronchiolitis obliterans with organizing pneumonia) Wears glasses High cholesterol Easy bruising Back pain Injury of head and neck Blackout Gastric reflux Non-smoker On home oxygen therapy Hoarseness Chronic cough History of echocardiogram Hypertension History of stress test Cardiology follow-up encounter History of atrial fibrillation Atrial fibrillation COVID-19 Osteoporosis Kidney stones Atrial fibrillation RBBB (right bundle branch block) Antisynthetase syndrome Essential hypertension Mixed hyperlipidemia Asthma Interstitial lung disease GERD (gastroesophageal reflux disease) Fatty liver BPH (benign prostatic hyperplasia) Lung nodule Vasovagal syncope Abnormal cardiac CT angiography Home Medications ?Medication ?Instructions ?Recorded ?Last Taken ?Type cyanocobalamin (vitamin B-12) 500 500 mcg PO DAILY 07/14/21 Unknown History mcg tablet denosumab 60 mg/mL subcutaneous 60 mg subcut [id number] low calcuim 07/14/21 Unknown History syringe (Prolia) pantoprazole 40 mg tablet,delayed 40 mg PO DAILY 07/14/21 Unknown History release budesonide 0.5 mg/2 mL suspension 0.5 mg inhalation BID sob 01/01/22 Unknown History for nebulization (Pulmicort) cetirizine 10 mg tablet (Zyrtec) 10 mg PO DAILY PRN allergies 01/01/22 Unknown History cholecalciferol (vitamin D3) 75 150 mcg PO DAILY 01/01/22 Unknown History mcg (3,000 unit) tablet lactobacillus combination no.9 4 4,000 mmu cells PO DAILY 01/01/22 Unknown History billion cell capsule (Adult 50 Plus Probiotic) zinc gluconate 30 mg tablet 30 mg PO DAILY supplement 01/01/22 Unknown History montelukast 10 mg tablet 10 mg PO DAILY 05/12/23 Unknown History (Singulair) mycophenolate mofetil 500 mg tablet 3,000 mg PO BID AUTOIMMUNE DISEASE 05/12/23 Unknown History diltiazem HCl 120 mg 120 mg PO DAILY #90 caps 11/24/23 Unknown Rx capsule,extended release 24 hr prednisone 1 mg tablet 10 mg PO DAILY 12/09/23 Unknown History rosuvastatin 5 mg tablet 10 mg PO DAILY 12/09/23 Unknown History metoprolol succinate 25 mg See Rx Instructions .Route 01/27/24 Unknown Rx tablet,extended release 24 hr .COMPLEX #90 TABLETS gabapentin 100 mg capsule 100 mg PO TID 08/22/24 Unknown History valacyclovir 1 gram tablet 1,000 mg PO TID 08/22/24 Unknown History Allergy/AdvReac Type Severity Reaction Status Date / Time monosodium glutamate Allergy Abd Verified 08/22/24 15:36 cramps/diarrhea Penicillins (PCN) Allergy Rash Verified 08/22/24 15:36 allopurinol AdvReac Unknown cough Verified 08/22/24 15:36 morphine AdvReac Other Verified 08/22/24 15:36 tamsulosin (From Flomax) AdvReac Other Verified 08/22/24 15:36 Family History Grandfather CVA (cerebral vascular accident) Grandmother Congestive heart failure Grandmother Cardiac pacemaker in situ Mother Heart disease Hypertension Father Heart disease Cardiac arrhythmia Surgical History History of incision and drainage Hx of cystoscopy History of umbilical hernia repair History of inguinal hernia repair Social History household members: spouse Smoking Status: Never smoker alcohol intake: current details: Rare substance use type: does not use caffeine: Yes Type: coffee Number of servings: 1 ROS ROS Narrative Admission Review of Systems: CONSTITUTIONAL: No weight loss, fever, chills, + weakness or fatigue. HEENT: Eyes: No visual loss, blurred vision, double vision or yellow sclerae. Ears, Nose, Throat: No hearing loss, sneezing, congestion, runny nose or sore throat. SKIN: + Significant left upper extremity and anterior chest recent shingles outbreak, occasional stage ecchymoses, abrasion. CARDIOVASCULAR: No chest pain, chest pressure or chest discomfort, palpitations, edema, orthopnea, syncopal events. RESPIRATORY: + shortness of breath, cough without marked sputum. No wheezing, hemoptysis. GASTROINTESTINAL: No anorexia, nausea, emesis, diarrhea, abdominal pain, melena, BRBPR. GENITOURINARY: No dysuria, frequency, urgency or retention. NEUROLOGICAL: No headache, dizziness, syncope, paralysis, ataxia, numbness or tingling in the extremities, focal weakness, change in bowel or bladder control, seizure. MUSCULOSKELETAL: + muscle, back pain, joint pain or stiffness. HEMATOLOGIC: No anemia, bleeding or bruising. LYMPHATICS: No enlarged nodes. No history of splenectomy. PSYCHIATRIC: No history of depression or anxiety. ENDOCRINOLOGIC: No reports of sweating, cold or heat intolerance. No polyuria or polydipsia. ALLERGIES: + history of asthma, hives, eczema or rhinitis. Vital Signs Vital Signs Vital Signs: 08/22/24 15:36 08/22/24 16:40 08/22/24 17:02 Temperature 96.8 F L Temperature Source Temporal Pulse Rate 69 90 Respiratory Rate 18 18 Respiratory Effort Short of Breath Respiratory Depth Normal Respiratory Pattern Normal Blood Pressure 97/66 105/64 Blood Pressure Mean 76 77 Pulse Ox 96 95 Oxygen Delivery Method Room Air Room Air Room Air 08/22/24 18:00 08/22/24 18:51 08/22/24 19:00 Temperature Temperature Source Pulse Rate 105 H 101 H 104 H Respiratory Rate 24 H 27 H 21 H Respiratory Effort Respiratory Depth Respiratory Pattern Blood Pressure 121/77 H 105/63 118/63 Blood Pressure Mean 91 77 81 Pulse Ox 93 93 98 Oxygen Delivery Method Room Air Room Air Room Air Physical Exam Narrative Physical Examination: General: Awake, alert, oriented x 3 and cooperative, seated upright in the ED bed, fatigued, purse lip breathing but reports this as chronic which was confirmed with Dr. Landon. Skin: Normal color, normal turgor, no icterus, no cyanosis except occasional staged ecchymoses, abrasion as well as left upper extremity and anterior chest resolving shingles outbreak. HEENT: AT/NC, EOMI, PERRLA, moderately dry MM, no carotid bruits or JVD noted. Lungs: Diminished, mild crackles bases likely secondary to underlying pulmonary fibrotic disease, mildly increased respiratory rate but no distress, pursed lip breathing but he reports this is chronic and stable, no rales, ronchi or wheezing. Heart: Mildly tachycardic with regular rhythm; no gallop, rub audible. Abdomen: Soft, NTTP, ND, normal BS, no appreciated HSM. Extremities: No cyanosis, clubbing, or edema. Neurological: Patient awake, alert, oriented as noted, cognitive function intact; pupils equally reactive to light and accommodation, cranial nerves grossly normal, moving all 4 extremities, no focal deficits, strength moderately to severely global decrease secondary to acute presentation. Psychiatric: Affect appears fatigued, no acute evidence of depressive or anxiety feelings. Results Lab / Micro Data Labs: Laboratory Results - last 24 hr 08/22/24 18:00: D-Dimer Quant (PE/DVT) 0.94 H*, Lactic Acid 2.8 H*, Troponin I High Sens 7 Imaging Radiology Impression Chest X-Ray 08/22/24 17:23 IMPRESSION: Atelectatic changes or scarring in the left lung base. Electronically Signed: Charlie Chakraborty MD at 17:54 EDT , Chest CTA 08/22/24 19:07 IMPRESSION: 1. No evidence of pulmonary embolism or aortic dissection. 2. Mild patchy bilateral groundglass opacities/infiltrates worse on the right side could reflect pulmonary edema or pneumonia. 3. Left lobe thyroid nodule for which correlation with nonemergent ultrasound is recommended. 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/Asthma, BPH who presents to the [facility] ED on 08/22/23 with history of recent evaluation at his dermatology office where he was being evaluated for shingles and left upper extremity with complaints at that time of dyspnea with concern for his worsening status possibly secondary to recent hold on mycophenolate as this was temporarily stopped on Wednesday given his recent singles bout and placed on gabapentin and Valtrex at that time with improvement with no recent fevers or chills or any URI type symptoms and not requiring any oxygen supplementation but concerns about a status prompting referral to the ED to be cautious. #1. 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 Bld cx x 2 obtained in the ED. Given leukocytosis and immunosuppressed status certainly concern for infectious etiology, but cannot completely rule out overload, thus will very gently hydrate. If more obvious overload becomes evidence may need to pulse dose IV Lasix. Most recent echocardiogram noted 01/14/2024 with EF 60%, LV systolic function normal, normal LV size, mild mitral annular calcification, stage I diastolic dysfunction, mild KATHERYN w/ repeat ECHO requested to be cautious. Dr. Landon will evaluate him 08/23/24. Will continue patient chronic low-dose prednisone therapy at this time as discussed with pulmonary. #2. Questionable Acute Complicated Urinary Tract Infection, lower suspicion given asymptomatic: UA upon ED evaluation remarkable, pending UCx, continue IVFs, monitor I/Os, continue IV Rocephin w/ transition as able pending sensitivities and speciation. Bld cx x 2 obtained in the ED. #3. Shingles, concern for dissemination: Will maintain on IV acyclovir, continue gabapentin, contact precautions, may add as needed pain regimen, holding mycophenolate, will request infectious disease consultation given reportedly worsened despite initial antiviral regimen although patient states it seems to be improving now with no pain complaint but immunosuppressed situation. #4. Incidentally noted left lobe thyroid nodule: Will obtain TSH, free T4, will need follow-up ultrasound outpatient. #5. PAF: We will continue patient on metoprolol regimen, not chronically anticoagulated. #6. Hypertension: Continue home regimen including metoprolol, diltiazem with hold parameters as needed, PRN hydralazine. #7. Hyperlipidemia: We will continue patient on statin therapy. #8. Allergic rhinitis: We will continue patient home montelukast as well as cetirizine regimen. #9. GERD: We will continue patient on PPI. #10. DVT prophylaxis: Lovenox. #11. CODE status: Patient does not have healthcare power of attorney recruiter or living will in place but notes his would be his medical decision-maker if necessary. Discussed CODE status at length including difference between FULL code, DNR-CCA and DNR-CC status. Following discussions about the differences in these status, requested Full Code status. Advanced Care Planning Face to Face Time: 16 minutes. Charges/Coding Visit Charges Inpatient E&M: 39658 Init Hosp L3 Procedures Hospitalists Procedures: 65194 Advncd Care Plan 30 Min
[2024-08-22] MEDS: Azithromycin 500 MG in Dextrose 5%-Water (250mL Bag) 250 ML 250 MG IV (20:40)
--- NOTE | 2024-08-22 21:35 | ECHOCS_ITS ---
Reason For Study: CHF Procedure This was a 2D Doppler, Color Flow transthoracic echocardiogram. The study was technically difficult. PT unable to lie in supine position due to significant knee pain. Exam performed supine. Contrast injection was performed. Left Ventricle Normal LV size. The estimated ejection fraction is 70 %. No evidence for diastolic dysfunction. No regional wall motion abnormalities noted. Right Ventricle Normal RV size. Normal systolic function. Atria The left and right atria are normal. No doppler evidence for ASD. Mitral Valve There is moderate mitral annular calcification. There is no mitral valve stenosis. No mitral valve insufficiency. Tricuspid Valve There is no tricuspid stenosis. No tricuspid valve insufficiency. Aortic Valve Trisinus/trileaflet aortic valve. Aortic sclerosis, no stenosis. There is no aortic stenosis. No aortic valve insufficiency. Pulmonic Valve There is no pulmonic valvular stenosis. No pulmonic valve insufficiency. Great Vessels Normal aortic root. Pericardium/Pleural No pericardial effusion. Medication Diluted definity 2.5ml given slow IV push to enhance endocardial definition. MMode/2D Measurements & Calculations LVIDd: 4.0 cm IVSd: 1.1 cm Ao root diam: 3.2 cm LVIDs: 3.0 cm LVPWd: 1.1 cm RVDd: 3.3 cm FS: 24.5 % LAV(MOD-bp): 46.4 ml LVAd ap4: 26.8 cm2 LVAd ap2: 24.1 cm2 LAV(MOD-bp) Indexed: 23.2 ml/m2 LVLd ap4: 7.8 cm LVLd ap2: 7.7 cm LAV(MOD-sp2): 43.2 ml EDV(MOD-sp4): 74.6 ml EDV(MOD-sp2): 59.9 ml LAV(MOD-sp4): 49.8 ml EDV(sp4-el): 77.7 ml EDV(sp2-el): 63.4 ml LVAs ap4: 14.3 cm2 LVAs ap2: 11.8 cm2 LVLs ap4: 6.3 cm LVLs ap2: 5.9 cm ESV(MOD-sp4): 27.5 ml ESV(MOD-sp2): 19.2 ml ESV(sp4-el): 27.6 ml ESV(sp2-el): 20.1 ml EF(MOD-sp4): 63.1 % EF(MOD-sp2): 67.9 % EF(sp4-el): 64.5 % SV(MOD-sp4): 47.1 ml SV(MOD-sp2): 40.7 ml SV(sp4-el): 50.1 ml LA A4 area: 18.3 cm2 LA dimension(2D): 4.2 cm RA A4 area: 9.6 cm2 TAPSE: 1.7 cm Time Measurements MV dec time: 0.23 sec Doppler Measurements & Calculations MV E max bassem: 52.3 cm/sec Lat Peak E' Bassem: 10.2 cm/sec Med Peak E' Bassem: 9.3 cm/sec MV A max bassem: 90.0 cm/sec E/E' lat: 5.1 E/E' med: 5.6 MV E/A: 0.58 Ao V2 max: 190.2 cm/sec LV V1 max: 141.6 cm/sec PA V2 max: 102.4 cm/sec Ao max P.6 mmHg LV V1 max P.0 mmHg PA V2 mean: 75.4 cm/sec Ao V2 mean: 131.8 cm/sec LV V1 mean P.8 mmHg Ao mean P.1 mmHg LV V1 mean: 105.6 cm/sec Ao V2 VTI: 24.4 cm LV V1 VTI: 21.1 cm AV (velocity ratio): 0.87 TR max bassem: 270.7 cm/sec TR max P.3 mmHg ECHO/Echo Complete W/ Contrast Interpretation Summary The estimated ejection fraction is 70 %. No evidence for diastolic dysfunction. Ordering Physician: Katheryn Beasley Referring Physician: Tanya Pettit Performed By: Jeni Queen RDCS, RVT
[2024-08-22 22:04] LABS: Reflex Lactate? Y
[2024-08-22] MEDS: 0.9% Normal Saline (1000mL) 1,000 ML 75 ML IV (22:09)
[2024-08-22 22:13] LABS: Magnesium 2.1 mg/dL (1.6-2.6)
[2024-08-22 22:54] LABS: BNP,B-Type NATRIURETIC PEPTIDE < 2.0 pg/mL (0-100)
[2024-08-22] MEDS: WATER IV (23:06)
[2024-08-22] MEDS: ACYCLOVIR IV (23:06)
[2024-08-22] MEDS: Atorvastatin Calcium 20 MG Tablet PO (23:06)
[2024-08-22] MEDS: DEXTROSE 5% IV (23:06)
[2024-08-22] MEDS: Gabapentin 100 MG Capsule PO (23:06)
[2024-08-22 23:08] LABS: Procalcitonin 0.19 ng/mL (0.00-0.09)
[2024-08-22 23:30] LABS: Lactic Acid 2.4 mmol/L (0.4-1.9)
[2024-08-23] VITALS (9 sets, daily range): BP systolic 96–122; BP diastolic 52–64; PULSE 75–96; RESP 18–94; TEMP 36.4–36.9; O2SAT 93–96; BMI 26.1
[2024-08-23] MEDS: Gabapentin 100 MG Capsule PO ×3 (07:02→21:03)
[2024-08-23] MEDS: DEXTROSE 5% IV ×3 (07:03→21:03)
[2024-08-23] MEDS: ACYCLOVIR IV ×3 (07:03→21:03)
[2024-08-23] MEDS: WATER IV ×3 (07:03→21:03)
[2024-08-23 07:25] LABS: Absolute Lymphocyte Count 0.45 X10^3/uL (0.83-4.51); Absolute Neutrophil Count 11.1 X10^3/uL (2.0-7.7); Basophil# 0.08 X10^3/uL; Basophil% 0.6 % (0-1); Eosinophils% 1.5 % (0-5); Hemoglobin 13.5 g/dL (13.0-16.5); Lymphocyte # 0.45 X10^3/ul (0.83-4.51); Lymphocyte % 3.4 % (19-41); Mean Corp Hgb Conc 31.4 g/dL (32-36); Mean Corpuscular Volume 92.5 fL (80-94); Monocyte# 1.19 X10^3/uL; NRBC Flagged by Analyzer 0 % (0-5); Neutrophil # 11.14 X10^3/uL (2.7-7.7); Neutrophil % 84.4 % (47-70); POSITIVE DIFFERENTIAL YES; Platelet Count 326 K/mm3 (150-450); RBC Distribution Width CV 14.6 % (11.6-14.6); RBC Distribution Width SD 49.1 fl (35.1-43.9); Red Blood Count 4.65 M/mm3 (4.6-6.2); White Blood Count 13.2 K/mm3 (4.4-11.0)
--- NOTE | 2024-08-23 07:36 | PCM.PN.HOSP ---
Reason for Visit Reason for Visit: Diagnoses Dyspnea, unspecified (08/22/24) Objective Data Objective Data Vital Signs: Vital Signs Temp Pulse Resp BP Pulse Ox O2 Del Method 98.1 F 75 18 122/64 H 94 Room Air 08/23/24 04:26 08/23/24 04:26 08/23/24 04:26 08/23/24 04:26 08/23/24 04:26 08/23/24 04:26 Oxygen Delivery Method Room Air Weight: 181 lb 14.102 oz Body Mass Index (BMI) 26.1 Intake & Output: Intake and Output for Last 24 Hours 08/21/24 08/22/24 08/23/24 23:59 23:59 23:59 Intake Total 1305 / 1305 664.6 / 664.6 Balance 1305 / 1305 664.6 / 664.6 Lab / Micro Data 08/23/24 06:42 08/23/24 06:42 Labs: Laboratory Results - last 24 hr 08/22/24 18:00: D-Dimer Quant (PE/DVT) 0.94 H*, Lactic Acid 2.8 H*, Magnesium 2.1, Troponin I High Sens 7, B-Natriuretic Peptide < 2.0, Procalcitonin 0.19 H 08/22/24 22:25: Lactic Acid 2.4 H* 08/23/24 06:42: WBC 13.2 H, RBC 4.65, Hgb 13.5, Hct 43.0, MCV 92.5, MCH 29.0, MCHC 31.4 L, RDW Std Deviation 49.1 H, RDW Coeff of Opal 14.6, Plt Count 326, MPV 9.0, Immature Gran % (Auto) 1.100 H, Neut % (Auto) 84.4 H, Lymph % (Auto) 3.4 L, [place] % (Auto) 9.0, Eos % (Auto) 1.5, Baso % (Auto) 0.6, Absolute Neuts (auto) 11.1 H, Absolute Lymphs (auto) 0.45 L, Nucleated RBC % 0 Micro: Microbiology 08/22/24 22:15 Mucosa - Nasopharyngeal Coronavirus COVID-19 PCR - Final 08/22/24 22:15 Mucosa - Nasopharyngeal Respiratory Panel (PCR) - Final 08/22/24 23:15 Nasal Secretion MRSA (PCR) - Final 08/22/24 18:30 Urine, Clean Catch Legionella Antigen - Final 08/22/24 18:30 Urine, Clean Catch Streptococcus pneumoniae Antigen (M - Final Radiography Diagnostic Testing: Radiology Impression Chest X-Ray 08/22/24 17:23 IMPRESSION: Atelectatic changes or scarring in the left lung base. Electronically Signed: Charlie Chakraborty MD at 17:54 EDT , Chest CTA 08/22/24 19:07 IMPRESSION: 1. No evidence of pulmonary embolism or aortic dissection. 2. Mild patchy bilateral groundglass opacities/infiltrates worse on the right side could reflect pulmonary edema or pneumonia. 3. Left lobe thyroid nodule for which correlation with nonemergent ultrasound is recommended. Electronically Signed: Charlie Chakraborty MD at 19:57 EDT , Physical Exam Narrative Seen and examined. I talked to the patient's at length. Patient is more weak could not get out of the bed for last 1 week. Has mild chronic cough due to interstitial lung disease. Had COVID 3 years ago and since then he is not back to his baseline before the COVID. Follows Dr. Garcia for ILD. Denies dysuria, increased frequency or urgency. No fever. Chronic dyspnea on exertion. Physical exam General: Alert, Oriented x3, Cooperative HEENT: Atraumatic, PERRLA, EOMI, Normocephalic Oral: No Gingival or Mucosal Lesions/ Ulcerations Neck: Supple, No JVD, Negative Carotid Bruits Chest wall/Lungs: Air entry diminished in bilateral lung bases. Fine inspiratory rales at bases. Cardiovascular: Irregular rhythm, A-fib, Normal S1, Normal S2, No M/G/R Abdomen: Bowel Sounds Present, Soft, Non Tender, Non-Distended : No dysuria. No renal angle tenderness. No suprapubic tenderness. Extremities: No edema, Capillary Refill Less than 3 Seconds Skin: Superficial ulcer about 2 x 2 cm with granulation tissue and minimal slough after incision and drainage over left medial upper thigh. Musculoskeletal: Muscle strength 4+/5 at hips and knee joints. No Tenderness to Palpation of Joints or Extremities. Generalized proximal muscle weakness Neurological: Cranial nerves II-XII grossly intact, DTR 2+/4. No acute focal neurological deficit. Psych/Mental Status: Normal Affect, Appropriate. Assessment & Plan Assessment/Plan (1) Dyspnea: PLAN: Plan The patient is a 73 y/o M was admitted through ED for shortness of breath from dermatology office. 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 Patient has shingles in left upper extremity and was taken off mycophenolate on last Wednesday by Dr. Pettit. No fever chills URI symptoms cough abdominal pain nausea vomiting. 1. Interstitial lung disease/antisynthetase syndrome with concern of possible pneumonia: [facility] Patient was mildly tachycardic and tachypnea on day of admission but BP normal. No fever or hypoxia. Chest x-ray and CTA chest individually reviewed. Groundglass appearance diffuse but predominantly in lower lobes and periphery.Atelectatic changes/scarring left lung base unchanged. No focal infiltrate. Central airways and mediastinal contour unremarkable. Pneumonia workup so far negative. Mild leukocytosis but patient has been leukocytosis for a while probably from chronic steroid therapy. Immature granulocytes more than 1% suggestive of left shift. Lactic acidosis. Most recent echocardiogram noted 01/14/2024 with EF 60%, LV systolic function normal, normal LV size, mild mitral annular calcification, stage I diastolic dysfunction, mild KATHERYN. Repeat echo was done on 08/22. Reported EF 70% with no evidence of diastolic dysfunction. No RWMA. No significant valvular abnormality. Dr. Chuckie Landon was consulted and discussed with him. 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 On chronic mycophenolate therapy and on prednisone 10 mg daily. Mycophenolate is on hold because of recent changes in goals and he should be back on Wednesday when he completes Valtrex on . #2. Abnormal UA: UA shows WBC 5-10 cells, 2+ bacteria, 1+ mucus, LE 100. Urine culture pending Bld cx x 2 obtained in the ED. #3. Shingles, concern for dissemination: on IV acyclovir, continue gabapentin, contact precautions, may add as needed pain regimen, holding mycophenolate. ID consulted #4. Incidentally noted left lobe thyroid nodule: TSH, free T4,follow-up ultrasound outpatient. #5. PAF: Rate is controlled. Continue metoprolol regimen. As per his and Dr. Chuckie Landon, he was on Eliquis 5 mg twice daily but was taken off 2 months ago prior to surgery. He was not put back on that. Twelve-lead EKG ordered. Patient was put back on Eliquis 5 mg twice daily #6. Hypertension: Continue home regimen including metoprolol, diltiazem with hold parameters as needed, PRN hydralazine. #7. Hyperlipidemia: continue patient on statin therapy. #8. Allergic rhinitis: continue patient home montelukast as well as cetirizine regimen. #9. GERD: continue patient on PPI. #10. DVT prophylaxis: Lovenox. 11. Generalized muscle weakness possible proximal myopathy either from chronic steroid therapy or interstitial lung disease: PT and OT. #11. CODE status: Patient does not have healthcare power of criminal defense attorney or living will in place but notes his would be his medical decision-maker if necessary. Discussed CODE status at length including difference between FULL code, DNR-CCA and DNR-CC status. Following discussions about the differences in these status, requested Full Code status. Clinical Impression(s) from Imaging Studies Chest X-Ray 08/22/24 17:23 IMPRESSION: Atelectatic changes or scarring in the left lung base. Electronically Signed: Charlie Chakraborty MD at 17:54 EDT , Chest CTA 08/22/24 19:07 IMPRESSION: 1. No evidence of pulmonary embolism or aortic dissection. 2. Mild patchy bilateral groundglass opacities/infiltrates worse on the right side could reflect pulmonary edema or pneumonia. 3. Left lobe thyroid nodule for which correlation with nonemergent ultrasound is recommended. Electronically Signed: Charlie Chakraborty MD at 19:57 EDT , Echocardiogram 08/22/24 21:35 Interpretation Summary The estimated ejection fraction is 70 %. No evidence for diastolic dysfunction. Charges/Coding Visit Charges Inpatient E&M: 98881 Subs Hosp L2
[2024-08-23 07:51] LABS: ALB/GLOB Ratio 0.7 RATIO (0.9-2.4); AST(SGOT) 18 U/L (15-37); Alanine Aminotransfer ALT/SGPT 40 U/L (16-61); Albumin, Serum 2.4 g/dL (3.2-5.0); Alkaline Phosphatase 64 U/L (45-117); Anion Gap 5 (5-15); BUN 10 mg/dL (7-18); BUN/Creat Ratio 10.9 RATIO (10-20); Calcium,Total 9.3 mg/dL (8.5-10.1); Chloride 103 mmol/L (98-107); Cholesterol 78 mg/dL (200); Creatinine, Serum 0.92 mg/dL (0.70-1.30); EST Glomerular Filtration Rate 86 mL/min (>60); Est Glom Filt Rate - Afr Amer 104 mL/min (>60); Estimated Creatinine Clearance 76.04 ml/min; Globulin 3.5 g/dL (2.2-4.2); Glucose 99 mg/dL (74-106); High Density Lipoprotein 34 mg/dL; Protein, Total 5.9 g/dL (6.4-8.2); Sodium Level 134 mmol/L (136-145); T4 Free Direct 1.35 ng/dL (0.76-1.46); Triglycerides 74 mg/dL; Very Low Density Lipoprotein 15 mg/dL (5-40)
[2024-08-23] MEDS: predniSONE 10 MG Tablet PO (09:33)
[2024-08-23] MEDS: Lactobacillis Acidophilus 1 CAP PO (09:34)
[2024-08-23] MEDS: Montelukast 10 MG Tablet PO (09:34)
[2024-08-23] MEDS: Pantoprazole Sodium 40 MG Tablet PO (09:34)
[2024-08-23] MEDS: Enoxaparin 40 MG/0.4 ML Syringe SC (09:35)
--- NOTE | 2024-08-23 10:55 | CASEMGMT ---
RACHELLE MÁRQUEZ Assessment: Face to Face with pt for initial transition planning/care coordination assessment. RN YULISA introduced self and role at [facility], pt voices understanding and consents to assessment. Pt is A&O x4 and answers all questions appropriately at this time. Pt sitting up in bed in no distress with present at bedside. Pt agreeable to assessment with present. Care providers, pharmacy, and demographics verified/updated. Admitting Dx: ? UTI, ? PNA, shingles Strata Score: 3 PCP:Wil[facility] Specialists:luis antonio Landon; Sherri OR; MAXWELLG, cardio Preferred Pharmacy: [facility] Insurance: [employer]; MCR A Prescription Benefit: yes LNOK: Ashley Verdugo, Living Arrangements: Pt lives with in a two story home with no steps to enter. Pt reports he is I in ADLs and denies concerns at home. Pt still works. Transportation: Pt drives self and denies concerns with transportation. DME:portable oxygen concentrator but doesn't use; cane HHC/SNF: Pt has had [facility] in the past, denies SNF stays. Pt states no concerns with going home at time of dc. He states he would like to go back home if my lets me. Pt states that pt came back from [place] visiting his father and this is the fraire he has to pay for it. She states she has had to call the EMS twice as pt has fallen in the shower. Pt states he has vertigo. He reports he has not been treated for this. He states that he is not currently having it. Pt states pt has been in bed ever since returning from [place]. She states that 3 yrs ago pt had covid and he spent the month after being hospitalized on the couch. She states she is not going through this again. She requests therapy to work with pt. She is aware this RN CM will confirm that it is ordered. White board states pt is indep in room. Pt reports he has a boil to inner thigh that they are putting neosporin on it. Pt requested bandaid from nurse. Pt states no further concerns/needs. CM to follow. Advised pt to ask CM if any further question/concerns/needs arise, voices understanding. Pt Goal: Home Plan: Home pending course of hospitization Timi BUSH CM
[2024-08-23] MEDS: Neomycin/Bacitracin/Polymyxin Ointment 1 APPLIC TOPICAL (11:55)
--- NOTE | 2024-08-23 12:01 | NURSING ---
came in and asked for a bandage for his open wound on his Lt thigh/groin where pt had refused this RN to look at during assessment saying It's fine I take care of it myself. Pt stated he needed neosporin to put on it. This RN got an order and applied it to wound. See wound intervention on pts assessment.
--- NOTE | 2024-08-23 13:40 | CON.PCM.ID_ITS ---
Assessment & Plan Assessment/Plan (1) Shingles: PLAN: Cxs pending. Urine Ag neg. Wbc improved, overall feeling nearly back to normal. Given immunosuppression, there is risk for disseminated zoster and possible pulm involvement. Rash appears to be fading, nontender. Keep azithro/ceftriaxone/acyclovir for now. Will follow, thank you HPI Consult Data Date of Consult: 08/23/24 HPI Narrative Reason for Consultation: shingles HPI Narrative: YARON BUTLER, is a 73 M with interstitial lung disease, ht, presented 08/22 from derm office with about a week of LUE rash with some bulla present. Nontender, does not extend to chest or back. No fever. No new sputum or dyspnea. Had been started on valtrex for shingles as outpt. Admitted here on azithro, ceftriaxone, and iv acyclovir. Full ROS performed and neg except as noted above. [facility] Medical History Abscess of left thigh BOOP (bronchiolitis obliterans with organizing pneumonia) Wears glasses High cholesterol Easy bruising Back pain Injury of head and neck Blackout Gastric reflux Non-smoker On home oxygen therapy Hoarseness Chronic cough History of echocardiogram Hypertension History of stress test Cardiology follow-up encounter History of atrial fibrillation Atrial fibrillation COVID-19 Osteoporosis Kidney stones Atrial fibrillation RBBB (right bundle branch block) Antisynthetase syndrome Essential hypertension Mixed hyperlipidemia Asthma Interstitial lung disease GERD (gastroesophageal reflux disease) Fatty liver BPH (benign prostatic hyperplasia) Lung nodule Vasovagal syncope Abnormal cardiac CT angiography Home Medications ?Medication ?Instructions ?Recorded ?Last Taken ?Type cyanocobalamin (vitamin B-12) 500 500 mcg PO DAILY 07/14/21 Unknown History mcg tablet denosumab 60 mg/mL subcutaneous 60 mg subcut [id number] low calcuim 07/14/21 Unknown History syringe (Prolia) pantoprazole 40 mg tablet,delayed 40 mg PO DAILY 07/14/21 Unknown History release budesonide 0.5 mg/2 mL suspension 0.5 mg inhalation BID sob 01/01/22 Unknown History for nebulization (Pulmicort) cetirizine 10 mg tablet (Zyrtec) 10 mg PO DAILY PRN allergies 01/01/22 Unknown History cholecalciferol (vitamin D3) 75 150 mcg PO DAILY 01/01/22 Unknown History mcg (3,000 unit) tablet lactobacillus combination no.9 4 4,000 mmu cells PO DAILY 01/01/22 Unknown History billion cell capsule (Adult 50 Plus Probiotic) zinc gluconate 30 mg tablet 30 mg PO DAILY supplement 01/01/22 Unknown History montelukast 10 mg tablet 10 mg PO DAILY 05/12/23 Unknown History (Singulair) mycophenolate mofetil 500 mg tablet 3,000 mg PO BID AUTOIMMUNE DISEASE 05/12/23 Unknown History diltiazem HCl 120 mg 120 mg PO DAILY #90 caps 11/24/23 Unknown Rx capsule,extended release 24 hr prednisone 1 mg tablet 10 mg PO DAILY 12/09/23 Unknown History rosuvastatin 5 mg tablet 10 mg PO DAILY 12/09/23 Unknown History metoprolol succinate 25 mg See Rx Instructions .Route 01/27/24 Unknown Rx tablet,extended release 24 hr .COMPLEX #90 TABLETS gabapentin 100 mg capsule 100 mg PO TID 08/22/24 Unknown History valacyclovir 1 gram tablet 1,000 mg PO TID 08/22/24 Unknown History Allergy/AdvReac Type Severity Reaction Status Date / Time monosodium glutamate Allergy Abd Verified 08/22/24 15:36 cramps/diarrhea Penicillins (PCN) Allergy Rash Verified 08/22/24 15:36 allopurinol AdvReac Unknown cough Verified 08/22/24 15:36 morphine AdvReac Other Verified 08/22/24 15:36 tamsulosin (From Flomax) AdvReac Other Verified 08/22/24 15:36 Family History Grandfather CVA (cerebral vascular accident) Grandmother Congestive heart failure Grandmother Cardiac pacemaker in situ Mother Heart disease Hypertension Father Heart disease Cardiac arrhythmia Surgical History History of incision and drainage Hx of cystoscopy History of umbilical hernia repair History of inguinal hernia repair Social History household members: spouse Smoking Status: Never smoker alcohol intake: current details: Rare substance use type: does not use caffeine: Yes Type: coffee Number of servings: 1 Physical Exam Const alert, oriented x3 and no apparent distress General Appearance: cooperative HEENT normocephalic and head/scalp atraumatic Eyes PERRL and EOMs intact bilaterally Neck supple and No nodes Resp normal air movement and clear to auscultation bilaterally Auscultation: diminished lung sounds Cardio regular rate and regular rhythm GI soft to palpation, non-tender and non-distended Extremity General Extremity: Negative for edema Skin Skin Narrative: Some fading bulla on L hand, non raised erythema extending up to elbow Neuro CN's II-XII intact bilaterally Lab / Micro Data Attestation: I reviewed the patient's lab results. 08/23/24 06:42 08/23/24 06:42 Labs: Laboratory Results - last 24 hr 08/22/24 18:00: D-Dimer Quant (PE/DVT) 0.94 H*, Lactic Acid 2.8 H*, Magnesium 2.1, Troponin I High Sens 7, B-Natriuretic Peptide < 2.0, Procalcitonin 0.19 H 08/22/24 22:25: Lactic Acid 2.4 H* 08/23/24 06:42: WBC 13.2 H, RBC 4.65, Hgb 13.5, Hct 43.0, MCV 92.5, MCH 29.0, M CHC 31.4 L, RDW Std Deviation 49.1 H, RDW Coeff of Opal 14.6, Plt Count 326, MPV 9.0, Immature Gran % (Auto) 1.100 H, Neut % (Auto) 84.4 H, Lymph % (Auto) 3.4 L, [place] % (Auto) 9.0, Eos % (Auto) 1.5, Baso % (Auto) 0.6, Absolute Neuts (auto) 11.1 H, Absolute Lymphs (auto) 0.45 L, Nucleated RBC % 0, Sodium 134 L, Potassium 4.0, Chloride 103, Carbon Dioxide 26.0, Anion Gap 5, BUN 10, Creatinine 0.92, Estim Creat Clear Calc 76.04, Est GFR (MDRD) Af Amer 104, Est GFR (MDRD) Non-Af 86, BUN/Creatinine Ratio 10.9, Glucose 99, Calcium 9.3, Total Bilirubin 0.70, AST 18, ALT 40, Alkaline Phosphatase 64, Total Protein 5.9 L, A lbumin 2.4 L, Globulin 3.5, Albumin/Globulin Ratio 0.7 L, Triglycerides 74, Cholesterol 78, LDL Cholesterol 29, VLDL Cholesterol 15, HDL Cholesterol 34 L, TSH 1.630, Free T4 1.35 Micro: Microbiology 08/23/24 04:50 Sputum, Expectorated/Coughed Gram Stain - Final 08/22/24 18:30 Urine, Clean Catch Urine Culture - Preliminary Culture exhibits no growth. 08/22/24 22:15 Mucosa - Nasopharyngeal Coronavirus COVID-19 PCR - Final 08/22/24 22:15 Mucosa - Nasopharyngeal Respiratory Panel (PCR) - Final 08/22/24 23:15 Nasal Secretion MRSA (PCR) - Final 08/22/24 18:30 Urine, Clean Catch Legionella Antigen - Final 08/22/24 18:30 Urine, Clean Catch Streptococcus pneumoniae Antigen (M - Final Imaging Radiology Impression Chest X-Ray 08/22/24 17:23 IMPRESSION: Atelectatic changes or scarring in the left lung base. Electronically Signed: Charlie Chakraborty MD at 17:54 EDT , Chest CTA 08/22/24 19:07 IMPRESSION: 1. No evidence of pulmonary embolism or aortic dissection. 2. Mild patchy bilateral groundglass opacities/infiltrates worse on the right side could reflect pulmonary edema or pneumonia. 3. Left lobe thyroid nodule for which correlation with nonemergent ultrasound is recommended. Electronically Signed: Charlie Chakraborty MD at 19:57 EDT ,
--- NOTE | 2024-08-23 14:00 | EKG12_ITS ---
Test Reason : Blood Pressure : / mmHG Vent. Rate : 150 BPM Atrial Rate : 150 BPM P-R Int : 128 ms QRS Dur : 116 ms QT Int : 286 ms P-R-T Axes : 000 -53 -12 degrees QTc Int : 451 ms Sinus tachycardia with Premature atrial complexes Incomplete right bundle branch block Left anterior fascicular block Cannot rule out Inferior infarct (masked by fascicular block?) , age undetermined Abnormal ECG When compared with ECG of 22-AUG-2024 17:44, MANUAL COMPARISON REQUIRED, DATA IS UNCONFIRMED Confirmed by JOSE ESCALERA, ILNSEY ([id number]), make up editor SEA FIGUEROA ([id number]) on 08/25/2024 11:52:31 AM Referred By: Confirmed By:LINSEY GARCIA MD
--- NOTE | 2024-08-23 14:02 | CASEMGMT ---
Addendum entered by Jade Wiggins 08/23/24 14:58: Spoke with therapy, no therapy recommended for pt. RACHELLE MÁRQUEZ into pt room to discuss with pt. He states he is fine with this but is worried what his will say. Made aware he could private pay for a facility but physically it is not recommended. Pt states he has the money to do this but does not want to. Updated hospitalist. Original Note: Received tc from hospitalist who states pt is medically ready for dc but pt wants to go to SNF. RACHELLE MÁRQUEZ called therapy who will see pt shortly for evals.
--- NOTE | 2024-08-23 14:07 | CASEMGMT ---
Discharge Planning A list of?SNF providers including quality and resource use data and consistent with the patient's preferred geographic region, medical needs, and insurance network was created in [facility] [facility].? This list was provided to the SW. Charis Pittman Discharge Planning Asst.
[2024-08-23] MEDS: dilTIAZem CD 120 MG Capsule PO (14:29)
[2024-08-23] MEDS: Metoprolol(XL)Succ 25 MG Tablet PO ×2 (14:30→21:04)
[2024-08-23] MEDS: Atorvastatin Calcium 20 MG Tablet PO (21:04)
[2024-08-23] MEDS: guaiFENesin/D-Methorphan TAB.SR.12H 1 TABLET PO (21:04)
[2024-08-23] MEDS: APIXABAN 5 MG TABLET PO (21:04)
[2024-08-24] VITALS (7 sets, daily range): BP systolic 90–129; BP diastolic 46–91; PULSE 75–92; RESP 18; TEMP 36.1–36.9; O2SAT 90–97; BMI 26.2
[2024-08-24] MEDS: WATER IV (06:32)
[2024-08-24] MEDS: DEXTROSE 5% IV (06:32)
[2024-08-24] MEDS: ACYCLOVIR IV (06:32)
[2024-08-24] MEDS: Gabapentin 100 MG Capsule PO ×2 (06:32→14:03)
[2024-08-24] MEDS: Ondansetron 4 MG/2 ML Vial IV (06:45)
[2024-08-24] MEDS: APIXABAN 5 MG TABLET PO (09:10)
[2024-08-24] MEDS: guaiFENesin/D-Methorphan TAB.SR.12H 1 TABLET PO (09:10)
[2024-08-24] MEDS: predniSONE 10 MG Tablet PO (09:10)
[2024-08-24] MEDS: Pantoprazole Sodium 40 MG Tablet PO (09:10)
[2024-08-24] MEDS: Montelukast 10 MG Tablet PO (09:10)
[2024-08-24] MEDS: Lactobacillis Acidophilus 1 CAP PO (09:10)
[2024-08-24] MEDS: Neomycin/Bacitracin/Polymyxin Ointment 1 APPLIC TOPICAL (09:11)
--- NOTE | 2024-08-24 11:01 | PCM.PN.ID ---
Physical Exam Narrative Feeling better, no dyspnea, no fever, rash is fading and not tender Const alert and no apparent distress Resp Auscultation: diminished lung sounds Cardio regular rate and regular rhythm GI soft to palpation, non-tender and non-distended Skin Skin Narrative: fading rash on LUE ID ID: Route of nutrition/ use of supplements: [] Nutritional Intake: [] IV Site: [] Vigil Catheter: [] Assessment & Plan Assessment/Plan (1) Shingles: PLAN: Cxs ngtd. Urine Ag neg. Wbc improved, overall feeling nearly back to normal. Given immunosuppression, there is risk for disseminated zoster and possible pulm involvement. Rash appears to be fading, nontender. Ok for home to finish prior course of acyclovir, resume bactrim prophylaxis, and 3 days po cefdinir. Will follow prn
--- NOTE | 2024-08-24 11:10 | DCINST_ITS ---
Discharge Instructions Diet Discharge Diet: No restrictions Activity Discharge Activity: Return to Normal Activity Weight Bearing Status: Weight bearing as tolerated Dressing / Incision Call your doctor if you observe: Fever of 101 or Higher, Coldness, Increased Pain, Numbness or Tingling, Change in Color, Inability to urinate, Inability to have a bowel movement, Shortness of breath, Dizziness, Fainting spells, Swelling in the ankles, Chest pain, Prolonged hiccupping, Increased palpitations (irregular heartbeat) and Calf discomfort Follow Up Care When: IN 2 WEEKS Test Results: Test results from this visit will be discussed in further detail at your follow- up appointment, if applicable. Discharge Plan Admission Admit Date/Time: 08/22/24 21:04 Primary Reason for Your Visit: Shingles rash Attending Provider: Jluis Botello Primary Care Provider: Tanya Pettit Consulting Providers: Chuckie Landon V; Chuckie Alicia; Katheryn Beasley Instructions Additional Instructions / Restrictions: Patient is stated that he is taking Bactrim prophylaxis for 8 to 10 years is also confirmed by Dr. Alicia. It is not showing his med list. Follow with PCP to resume Bactrim DS if it is taking. He is going to complete Valtrex today. Resume mycophenolate from tomorrow AM. Discharge Orders/Prescriptions Prescriptions: New Eliquis 5 mg Tablet 5 mg PO BID 30 Days Qty: 60 2RF cefdinir 300 mg capsule 300 mg PO BID 3 Days Qty: 6 0RF Continued pantoprazole 40 mg tablet,delayed release (DR/EC) 40 mg PO DAILY Prolia 60 mg/mL syringe 60 mg subcut [id number] cyanocobalamin (vitamin B-12) 500 mcg tablet 500 mcg PO DAILY zinc gluconate 30 mg tablet 30 mg PO DAILY cholecalciferol (vitamin D3) 75 mcg (3,000 unit) tablet 150 mcg PO DAILY Adult 50 Plus Probiotic 4 billion cell capsule 4,000 mmu cells PO DAILY Rx Instructions: administer with a meal budesonide [Pulmicort] 0.5 mg/2 mL suspension for nebulization 0.5 mg inhalation BID cetirizine [Zyrtec] 10 mg tablet 10 mg PO DAILY PRN (Reason: allergies) prednisone 1 mg tablet 10 mg PO DAILY montelukast [Singulair] 10 mg tablet 10 mg PO DAILY rosuvastatin 5 mg tablet 10 mg PO DAILY gabapentin 100 mg capsule 100 mg PO TID valacyclovir 1 gram tablet 1,000 mg PO TID 1 Days Qty: 0 0RF Rx Instructions: He completes Valtrex on night diltiazem HCl 120 mg capsule,extended release 24hr 120 mg PO DAILY Qty: 90 3RF metoprolol succinate 25 mg tablet extended release 24 hr See Rx Instructions .ROUTE .COMPLEX Qty: 90 3RF Dose Instruction: take 1 tablet orally daily Rx Instructions: take 1 tablet orally daily Held mycophenolate mofetil 500 mg tablet 3,000 mg PO BID Hold Instructions: Resume on 08/25/2024 after completion of Valtrex Referrals / Follow Up: Tanya Pettit DO [Primary Care Provider] - Within 1 Week Chuckie Landon MD [Med Staff - Active Staff] - Within 2 Weeks Disposition Disposition (needs filled in before D/C Order can be placed): Home, Self Care
[2024-08-24] MEDS: Metoprolol(XL)Succ 25 MG Tablet PO (12:23)
--- NOTE | 2024-08-24 14:00 | DS.PCM_ITS ---
Providers Date of Admission: 08/22/24 Date of Discharge: 08/24/24 Primary Care Physician: Dr. Tanya Pettit, DO Consultations 08/22/24 21:35 Consult: [facility] / Pulmonary Medicine Routine Consulting Provider: Chuckie Landon V Reason for Consult: ? pneumonia w/ ILD EMERGENT Consult: No Notified: Yes Date Notified: 08/22/24 Time Notified: 21:27 Method of Notification: Verbal 08/22/24 23:35 Consult: Infectious Disease Routine Consulting Provider: Chuckie Alicia Reason for Consult: ? Disseminated shingles EMERGENT Consult: No Notified: Yes Date Notified: 08/23/24 Time Notified: 06:05 Method of Notification: Answering Service Reason For Visit: ? UTI, ? PNA, SHINGLES Diagnosis Discharge Diagnosis (1) Shingles: Status: Acute Code(s): B02.9 - Zoster without complications Plan The patient is a 73 y/o M was admitted through ED for shortness of breath from dermatology office. 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 Patient has shingles in left upper extremity and was taken off mycophenolate on last Wednesday by Dr. Pettit. No fever chills URI symptoms cough abdominal pain nausea vomiting. 1. Interstitial lung disease/antisynthetase syndrome with concern of possible pneumonia: Patient is being admitted to [facility] floor. Patient was mildly tachycardic and tachypnea on day of admission but BP normal. No fever or hypoxia. Chest x-ray and CTA chest individually reviewed. Groundglass appearance diffuse but predominantly in lower lobes and periphery.Atelectatic changes/scarring left lung base unchanged. No focal infiltrate. Central airways and mediastinal contour unremarkable. Pneumonia workup so far negative. Mild leukocytosis but patient has been leukocytosis for a while probably from chronic steroid therapy. Immature granulocytes more than 1% suggestive of left shift. Lactic acidosis. Most recent echocardiogram noted 01/14/2024 with EF 60%, LV systolic function normal, normal LV size, mild mitral annular calcification, stage I diastolic dysfunction, mild KATHERYN. Repeat echo was done on 08/22. Reported EF 70% with no evidence of diastolic dysfunction. No RWMA. No significant valvular abnormality. Dr. Chuckie Landon was consulted and discussed with him. 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 On chronic mycophenolate therapy and on prednisone 10 mg daily. Mycophenolate is on hold because of recent changes in goals and he should be back on Wednesday when he completes Valtrex on . 08/23: As mentioned above last dose of Valtrex today and then resume mycophenolate from tomorrow. Patient also told ID Dr. Alicia that he is on Bactrim DS prophylaxis for last 10 years but is not in his home medication list. Advised to follow with PCP and resume Bactrim DS if he is taking from tomorrow morning. Pneumonia was ruled out. PT and OT evaluated and does not qualify for SNF. Discharged home. No fever. Home qualification oxygen ordered. Patient is discharged on 3 more days of cefdinir 300 mg twice daily as recommended by ID as patient is immunocompromised host. #2. Abnormal UA: UA shows WBC 5-10 cells, 2+ bacteria, 1+ mucus, LE 100. Urine culture pending Bld cx x 2 obtained in the ED. 08/24: Urine culture shows no growth. UTI ruled out. #3. Shingles, concern for dissemination: on IV acyclovir, continue gabapentin, contact precautions, may add as needed pain regimen, holding mycophenolate. ID consulted #4. Incidentally noted left lobe thyroid nodule: TSH, free T4,follow-up ultrasound outpatient. #5. PAF: Rate is controlled. Continue metoprolol regimen. As per his and Dr. Chuckie Landon, he was on Eliquis 5 mg twice daily but was taken off 2 months ago prior to surgery. He was not put back on that. Twelve-lead EKG ordered. Patient was put back on Eliquis 5 mg twice daily 08/24: Prescription for Eliquis 5 mg twice daily was sent to patient's pharmacy. #6. Hypertension: Continue home regimen including metoprolol, diltiazem with hold parameters as needed, PRN hydralazine. #7. Hyperlipidemia: continue patient on statin therapy. #8. Allergic rhinitis: continue patient home montelukast as well as cetirizine regimen. #9. GERD: continue patient on PPI. #10. DVT prophylaxis: Lovenox. 11. Generalized muscle weakness possible proximal myopathy either from chronic steroid therapy or interstitial lung disease: PT and OT. #11. CODE status: Patient does not have healthcare power of deputy commonwealth's attorney or living will in place but notes his would be his medical decision-maker if necessary. Discussed CODE status at length including difference between FULL code, DNR-CCA and DNR-CC status. Following discussions about the differences in these status, requested Full Code status. Discharge medication reconciliation done. Discharge follow-up instructions completed. Discharge process discussed with the patient and all questions were answered to patient's satisfaction. Follow with PCP in 1 to 2 weeks. I talked to the patient's twice on the phone yesterday after discussion during morning round in patient room. She is agreeable with the plan. Total time spent, exact 35 minutes on discharge meds reconciliation, examination, coordination of care with nurses and ancillary staff, review of imaging and blood test and discussion with the patient on follow-up instructions. Clinical Impression(s) from Imaging Studies Chest X-Ray 08/22/24 17:23 IMPRESSION: Atelectatic changes or scarring in the left lung base. Electronically Signed: Charlie Chakraborty MD at 17:54 EDT , Chest CTA 08/22/24 19:07 IMPRESSION: 1. No evidence of pulmonary embolism or aortic dissection. 2. Mild patchy bilateral groundglass opacities/infiltrates worse on the right side could reflect pulmonary edema or pneumonia. 3. Left lobe thyroid nodule for which correlation with nonemergent ultrasound is recommended. Electronically Signed: Charlie Chakraborty MD at 19:57 EDT , Echocardiogram 08/22/24 21:35 Interpretation Summary The estimated ejection fraction is 70 %. No evidence for diastolic dysfunction. Medications at Discharge Home Medications cyanocobalamin (vitamin B-12) 500 mcg tablet 500 mcg PO DAILY 07/14/21 denosumab 60 mg/mL subcutaneous syringe (Prolia) 60 mg subcut [id number] low calcuim 07/14/21 pantoprazole 40 mg tablet,delayed release 40 mg PO DAILY 07/14/21 budesonide 0.5 mg/2 mL suspension for nebulization (Pulmicort) 0.5 mg inhalation BID sob 01/01/22 cetirizine 10 mg tablet (Zyrtec) 10 mg PO DAILY PRN allergies 01/01/22 cholecalciferol (vitamin D3) 75 mcg (3,000 unit) tablet 150 mcg PO DAILY 01/01/22 lactobacillus combination no.9 4 billion cell capsule (Adult 50 Plus Probiotic) 4,000 mmu cells PO DAILY 01/01/22 zinc gluconate 30 mg tablet 30 mg PO DAILY supplement 01/01/22 montelukast 10 mg tablet (Singulair) 10 mg PO DAILY 05/12/23 mycophenolate mofetil 500 mg tablet 3,000 mg PO BID AUTOIMMUNE DISEASE 05/12/23 diltiazem HCl 120 mg capsule,extended release 24 hr 120 mg PO DAILY #90 caps 11/24/23 prednisone 1 mg tablet 10 mg PO DAILY 12/09/23 rosuvastatin 5 mg tablet 10 mg PO DAILY 12/09/23 metoprolol succinate 25 mg tablet,extended release 24 hr See Rx Instructions .Route .COMPLEX #90 TABLETS 01/27/24 gabapentin 100 mg capsule 100 mg PO TID 08/22/24 apixaban 5 mg tablet (Eliquis) 5 mg PO BID 30 days #60 tabs 08/24/24 cefdinir 300 mg capsule 300 mg PO BID 3 days #6 caps 08/24/24 valacyclovir 1 gram tablet 1,000 mg PO TID 1 day #0 tabs 08/24/24 Physical Exam Narrative Seen and examined. I talked to the patient's at length yesterday. Dyspnea on exertion has resolved. No fever Home oxygen qualification test ordered. Evaluated with PT and OT and no need for SNF. Evaluated by ID. Physical exam General: Alert, Oriented x3, Cooperative HEENT: Atraumatic, PERRLA, EOMI, Normocephalic Oral: No Gingival or Mucosal Lesions/ Ulcerations Neck: Supple, No JVD, Negative Carotid Bruits Chest wall/Lungs: Air entry diminished in bilateral lung bases. Chronic fine inspiratory rales at bases. Cardiovascular: Irregular rhythm, A-fib, Normal S1, Normal S2, No M/G/R Abdomen: Bowel Sounds Present, Soft, Non Tender, Non-Distended : No dysuria. No renal angle tenderness. No suprapubic tenderness. Extremities: No edema, Capillary Refill Less than 3 Seconds Skin: Superficial ulcer about 2 x 2 cm with granulation tissue and minimal slough after incision and drainage over left medial upper thigh. Musculoskeletal: Muscle strength 4+/5 at hips and knee joints. No Tenderness to Palpation of Joints or Extremities. Generalized proximal muscle weakness Neurological: Cranial nerves II-XII grossly intact, DTR 2+/4. No acute focal neurological deficit. Psych/Mental Status: Normal Affect, Appropriate. Weight / BMI Weight Weight: 182 lb 5.156 oz Body Mass Index (BMI) 26.2 ABG / Lab / Microbiology Data 08/23/24 06:42 08/23/24 06:42 Microbiology: Microbiology 08/22/24 18:30 Urine, Clean Catch Urine Culture - Preliminary Culture exhibits no growth. 08/23/24 04:50 Sputum, Expectorated/Coughed Gram Stain - Final 08/22/24 22:15 Mucosa - Nasopharyngeal Coronavirus COVID-19 PCR - Final 08/22/24 22:15 Mucosa - Nasopharyngeal Respiratory Panel (PCR) - Final 08/22/24 23:15 Nasal Secretion MRSA (PCR) - Final 08/22/24 18:30 Urine, Clean Catch Legionella Antigen - Final 08/22/24 18:30 Urine, Clean Catch Streptococcus pneumoniae Antigen (M - Final D/C Instructions Discharge Diet: No restrictions Weight Bearing Status: Weight bearing as tolerated Call your doctor if you observe: Fever of 101 or Higher, Coldness, Increased Pain, Numbness or Tingling, Change in Color, Inability to urinate, Inability to have a bowel movement, Shortness of breath, Dizziness, Fainting spells, Swelling in the ankles, Chest pain, Prolonged hiccupping, Increased palpitations (irregular heartbeat) and Calf discomfort When: IN 2 WEEKS Meaningful Use Info Meaningful Use Meaningful Use Diagnoses (Choose all that apply): None applicable Ischemic Stroke Statin Dosing Therapy Reference: STATIN DOSE THERAPY REFERENCE: * Patients > 75 years receive moderate or high dose statin therapy. * Patients 75 years or YOUNGER should receive HIGH intensity statin dose unless contraindicated. You will be required to document reason for non-treatment if statin daily dose does not meet guidelines. HIGH DOSE STATIN THERAPY DAILY Atorvastatin > than or = to 40 mg Rosuvastatin > than or = to 20 mg Amlodipine + Atorvastatin > than or = to 2.5/40 mg Ezetimibe + Simvastatin 10/80 mg Simvastatin 80mg Discharge Plan Admission Admit Date/Time: 08/22/24 21:04 Primary Reason for Your Visit: Shingles rash Attending Provider: Jluis Botello Primary Care Provider: Tanya Pettit Consulting Providers: Chuckie Landon V; Chuckie Alicia; Katheryn Beasley Instructions Additional Instructions / Restrictions: Patient is stated that he is taking Bactrim prophylaxis for 8 to 10 years is also confirmed by Dr. Alicia. It is not showing his med list. Follow with PCP to resume Bactrim DS if it is taking. He is going to complete Valtrex today. Resume mycophenolate from tomorrow AM. Discharge Orders/Prescriptions Prescriptions: New Eliquis 5 mg Tablet 5 mg PO BID 30 Days Qty: 60 2RF cefdinir 300 mg capsule 300 mg PO BID 3 Days Qty: 6 0RF Continued pantoprazole 40 mg tablet,delayed release (DR/EC) 40 mg PO DAILY Prolia 60 mg/mL syringe 60 mg subcut [id number] cyanocobalamin (vitamin B-12) 500 mcg tablet 500 mcg PO DAILY zinc gluconate 30 mg tablet 30 mg PO DAILY cholecalciferol (vitamin D3) 75 mcg (3,000 unit) tablet 150 mcg PO DAILY Adult 50 Plus Probiotic 4 billion cell capsule 4,000 mmu cells PO DAILY Rx Instructions: administer with a meal budesonide [Pulmicort] 0.5 mg/2 mL suspension for nebulization 0.5 mg inhalation BID cetirizine [Zyrtec] 10 mg tablet 10 mg PO DAILY PRN (Reason: allergies) prednisone 1 mg tablet 10 mg PO DAILY montelukast [Singulair] 10 mg tablet 10 mg PO DAILY rosuvastatin 5 mg tablet 10 mg PO DAILY gabapentin 100 mg capsule 100 mg PO TID valacyclovir 1 gram tablet 1,000 mg PO TID 1 Days Qty: 0 0RF Rx Instructions: He completes Valtrex on night diltiazem HCl 120 mg capsule,extended release 24hr 120 mg PO DAILY Qty: 90 3RF metoprolol succinate 25 mg tablet extended release 24 hr See Rx Instructions .ROUTE .COMPLEX Qty: 90 3RF Dose Instruction: take 1 tablet orally daily Rx Instructions: take 1 tablet orally daily Held mycophenolate mofetil 500 mg tablet 3,000 mg PO BID Hold Instructions: Resume on 08/25/2024 after completion of Valtrex Referrals / Follow Up: Tanya Pettit DO [Primary Care Provider] - Within 1 Week Chuckie Landon MD [Med Staff - Active Staff] - Within 2 Weeks Disposition Disposition (needs filled in before D/C Order can be placed): Home, Self Care Charges/Coding Visit Charges Inpatient E&M: 72318 Disch Hosp >30min
[2024-08-24] MEDS: dilTIAZem CD 120 MG Capsule PO (14:03)
--- NOTE | 2024-08-24 14:16 | CASEMGMT ---
TC jose l Blue, spoke with pharmacist, there is no charge or PA for eliquanmol.
== END 2024-08-24 15:17 | disposition home or self-care (01) | DRG 815 ==
LOC: ED 16:53 → MS3 21:44
PROVIDERS: Admitting Provider Family Medicine; Emergency Provider Surgery; PCP Internal Medicine; Visit Provider Internal Medicine
DX: D89.89 Other specified disorders involving the immune mechanism, not elsewhere classified (principal); E87.20 Acidosis, unspecified; B02.7 Disseminated zoster; J84.178 Other interstitial pulmonary diseases with fibrosis in diseases classified elsewhere; E04.1 Nontoxic single thyroid nodule; I10 Essential (primary) hypertension; I48.0 Paroxysmal atrial fibrillation; E78.2 Mixed hyperlipidemia; K21.9 Gastro-esophageal reflux disease without esophagitis; J30.9 Allergic rhinitis, unspecified; T45.1X6A Underdosing of antineoplastic and immunosuppressive drugs, initial encounter; N28.9 Disorder of kidney and ureter, unspecified; M62.81 Muscle weakness (generalized); Z79.51 Long term (current) use of inhaled steroids; Z79.52 Long term (current) use of systemic steroids; Z79.899 Other long term (current) drug therapy
CPT/HCPCS: 36415; 71046; 71275; 80053; 80061; 83605; 83735; 83880; 84145; 84439; 84443; 84484; 85025; 85379; 87040; 87070; 87086; 87205; 87449; 87633; 87635; 87641; 93005; 93306; 94668; 97161; 97166; 99284; J7030; J7050; Q9957; Q9967; A4216; C8929; J2405

== ENCOUNTER → 2024-08-22 | Outpatient (CLI) | payer OTHER, SELFPAY ==
[2024-08-22 12:10] LABS: Squamous Epithelial Cells - UA 0 SEEN /hpf (0-5)
[2024-08-22 12:16] LABS: Color, Urine Yellow (Yellow); Glucose, Dipstick Normal (Normal); Ketone-Dipstick Negative (Negative); Leukocyte Esterase-Dipstick 100 /ul (Negative); Nitrite-Dipstick Negative (Negative); Occult Blood-Urine 25 /ul (Negative); Protein-Dipstick 30 mg/dl (Negative); Urine Clarity Sl. Cloudy (Clear); Urine Urobilinogen 1 mg/dl (Normal)
[2024-08-22 12:17] LABS: Urine Bilirubin Dipstick 1 mg/dL (Negative)
[2024-08-22 12:28] LABS: ALB/GLOB Ratio 0.9 RATIO (0.9-2.4); AST(SGOT) 28 U/L (15-37); Absolute Lymphocyte Count 0.74 X10^3/uL (0.83-4.51); Absolute Neutrophil Count 14.6 X10^3/uL (2.0-7.7); Alanine Aminotransfer ALT/SGPT 55 U/L (16-61); Albumin, Serum 3.2 g/dL (3.2-5.0); Alkaline Phosphatase 83 U/L (45-117); Anion Gap 10 (5-15); BUN 14 mg/dL (7-18); BUN/Creat Ratio 10.3 RATIO (10-20); Basophil# 0.12 X10^3/uL; Basophil% 0.7 % (0-1); Calcium,Total 10.3 mg/dL (8.5-10.1); Chloride 102 mmol/L (98-107); Creatinine, Serum 1.36 mg/dL (0.70-1.30); EST Glomerular Filtration Rate 55 mL/min (>60); Eosinophil# 0.18 X10^3/uL; Est Glom Filt Rate - Afr Amer 66 mL/min (>60); Globulin 3.4 g/dL (2.2-4.2); Glucose 138 mg/dL (74-106); Hematocrit 50.4 % (40-54); Hemoglobin 15.6 g/dL (13.0-16.5); Lymphocyte # 0.74 X10^3/ul (0.83-4.51); Lymphocyte % 4.2 % (19-41); Mean Corpuscular Hgb 29.3 pg (27.0-32.0); Mean Corpuscular Volume 94.7 fL (80-94); Mean Platelet Vol. 9.8 fl (6.2-12.0); Monocyte# 1.58 X10^3/uL; NRBC Flagged by Analyzer 0 % (0-5); Neutrophil # 14.63 X10^3/uL (2.7-7.7); Neutrophil % 83.7 % (47-70); POSITIVE COUNT YES; POSITIVE DIFFERENTIAL YES; Platelet Count 424 K/mm3 (150-450); Potassium 4.8 mmol/L (3.5-5.1); Protein, Total 6.6 g/dL (6.4-8.2); RBC Distribution Width CV 14.7 % (11.6-14.6); Red Blood Count 5.32 M/mm3 (4.6-6.2); Sodium Level 136 mmol/L (136-145); White Blood Count 17.5 K/mm3 (4.4-11.0)
[2024-08-22 12:31] LABS: Calcium Oxalate Crystals Ur 1+ /hpf (<or=2+); Mucous, Urine 1+ /hpf (<or=2+); White Blood Cells 5-10 SEEN /hpf (0-5)
[2024-08-22 12:32] LABS: Bacteria 2+ /hpf (None Seen); Differential Indicated SCAN CRITERIA MET; Red Blood Cells-Urine 0-5 SEEN /hpf (0-5)
[2024-08-22 12:36] LABS: Erythrocyte Sedimentation Rate 51 mm/hr (0-20)
[2024-08-22 12:49] LABS: Differential Comment SCANNED
[2024-08-22 12:50] LABS: Platelet Estimate ADEQUATE (ADEQ)
== END | disposition home or self-care (01) ==
LOC: LABSPEC 11:50
PROVIDERS: PCP Internal Medicine; Referring Provider Internal Medicine; Visit Provider Internal Medicine
DX: R63.4 Abnormal weight loss (principal); R21 Rash and other nonspecific skin eruption
CPT/HCPCS: 80053; 81001; 85025; 85652; 86140; 87086

== ENCOUNTER 2024-08-28 16:55 | Inpatient (IN) | payer OTHER, MEDICARE, SELFPAY ==
[2024-08-28] VITALS (19 sets, daily range): BP systolic 84–123; BP diastolic 48–88; PULSE 65–153; RESP 16–31; TEMP 36.5–37.1; O2SAT 91–98; BMI 24.7; BMI 25.1
--- NOTE | 2024-08-28 17:53 | EKG12_ITS ---
Test Reason : AFIB Blood Pressure : / mmHG Vent. Rate : 142 BPM Atrial Rate : 142 BPM P-R Int : 118 ms QRS Dur : 116 ms QT Int : 300 ms P-R-T Axes : 000 -48 -13 degrees QTc Int : 461 ms Critical Test Result: High HR Sinus tachycardia with Premature atrial complexes Right bundle branch block Left anterior fascicular block Bifascicular block Abnormal ECG Confirmed by Shiva Dia [id number]), purchasing expeditor SEA FIGUEROA ([id number]) on 08/30/2024 6:33:26 AM Referred By: Confirmed By:Shiva Dia
[2024-08-28 18:11] LABS: Absolute Lymphocyte Count 0.56 X10^3/uL (0.83-4.51); Absolute Neutrophil Count 14.6 X10^3/uL (2.0-7.7); Basophil# 0.06 X10^3/uL; Basophil% 0.4 % (0-1); Hematocrit 44.7 % (40-54); Hemoglobin 13.9 g/dL (13.0-16.5); Lymphocyte # 0.56 X10^3/ul (0.83-4.51); Lymphocyte % 3.4 % (19-41); Mean Corp Hgb Conc 31.1 g/dL (32-36); Mean Corpuscular Hgb 29.1 pg (27.0-32.0); Mean Corpuscular Volume 93.5 fL (80-94); Mean Platelet Vol. 8.6 fl (6.2-12.0); Monocyte# 1.11 X10^3/uL; Monocyte% 6.8 % (0-10); NRBC Flagged by Analyzer 0 % (0-5); Neutrophil # 14.58 X10^3/uL (2.7-7.7); Neutrophil % 88.6 % (47-70); POSITIVE DIFFERENTIAL YES; Platelet Count 460 K/mm3 (150-450); RBC Distribution Width CV 14.9 % (11.6-14.6); Red Blood Count 4.78 M/mm3 (4.6-6.2); White Blood Count 16.4 K/mm3 (4.4-11.0)
[2024-08-28 18:30] LABS: Anion Gap 6 (5-15); BUN 13 mg/dL (7-18); Calcium,Total 9.7 mg/dL (8.5-10.1); Chloride 106 mmol/L (98-107); Creatinine, Serum 1.18 mg/dL (0.70-1.30); EST Glomerular Filtration Rate 65 mL/min (>60); Est Glom Filt Rate - Afr Amer 78 mL/min (>60); Estimated Creatinine Clearance 59.29 ml/min; Glucose 136 mg/dL (74-106); Potassium 4.4 mmol/L (3.5-5.1); Sodium Level 137 mmol/L (136-145); Troponin-I HS 8 pg/mL (3.0-78.0)
[2024-08-28 18:33] LABS: BNP,B-Type NATRIURETIC PEPTIDE 47.5 pg/mL (0-100)
--- NOTE | 2024-08-28 18:38 | EDS_ITS ---
HPI History of Present Illness Chief Complaint: Weakness Detail of Chief Complaint: Weakness, failure to thrive, wound medial left thigh, recent hospitalizatio Informant: patient and spouse/S.O. Onset/Context/Timing Onset: Days Context: Sudden Onset Timing: Intermittent Quality: Fell this morning because of weakness could not get up off the floor Location: Home Current Severity: Mild Maximum Severity: Severe Worsened by: Nothing specific. Possibly related to upright position. Relieved by: Nothing Associated Symptoms Associated Symptoms: Generalized weakness, poor p.o. intake Narrative Narrative: Patient is a 73-year-old male he does have a history of atrial fibrillation. He is presently on Eliquis. Has been on Eliquis for the past week. His bill of lading clerk is Dr. Lan. He was seen by Dr. Dacosta until he left town. He denies fever, chills night sweats. He denies headache, Visual, ocular auditory symptoms. He denies howard ears decreased hearing. No trouble with speech or swallowing. He does endorse thirst and dry mouth. He denies chest pain, pressure, tightness, pain with breathing etc. He denies shortness of breath or difficulty breathing. Denies abdominal pain. He denies nausea, vomiting or diarrhea. Denies black or maroon-colored stool. He denies urologic symptoms. He has recently become incontinent of urine and stool. He states he has never enough time to get to the restroom. is claiming that he is incontinent. He is wearing an adult diaper. Patient informing that Dr. Pettit believes he needs IV antibiotics to be admitted to hospital and ultrasound of his leg. Patient was discharged on August 24. He was admitted August 22. Patient had zoster. 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 He was seen by Dr. Hernandez who is his brazer induction. CTA revealed groundglass appearance diffusely. This was predominantly in the lower lobes peripherally. He had a recent echo January 14, 2024 which revealed an ejection fraction of 60%. LV systolic function was normal. LV size was normal. There was mild mitral annular calcification. Patient urine revealed pyuria with bacteria. Cultures were pending. His notes were reviewed. His discharge summary was authored by Dr. Botello. Prior similar symptoms: Yes Recent Illness/Hospitalization: Yes [facility] Medical History Shingles Abscess of left thigh BOOP (bronchiolitis obliterans with organizing pneumonia) Wears glasses High cholesterol Easy bruising Back pain Injury of head and neck Blackout Gastric reflux Non-smoker On home oxygen therapy Hoarseness Chronic cough History of echocardiogram Hypertension History of stress test Cardiology follow-up encounter History of atrial fibrillation Atrial fibrillation COVID-19 Osteoporosis Kidney stones Atrial fibrillation RBBB (right bundle branch block) Antisynthetase syndrome Essential hypertension Mixed hyperlipidemia Asthma Interstitial lung disease GERD (gastroesophageal reflux disease) Fatty liver BPH (benign prostatic hyperplasia) Lung nodule Vasovagal syncope Abnormal cardiac CT angiography Home Medications ?Medication ?Instructions ?Recorded ?Last Taken ?Type cyanocobalamin (vitamin B-12) 500 500 mcg PO DAILY 07/14/21 Unknown History mcg tablet denosumab 60 mg/mL subcutaneous 60 mg subcut [id number] low calcuim 07/14/21 Unknown History syringe (Prolia) pantoprazole 40 mg tablet,delayed 40 mg PO DAILY 07/14/21 Unknown History release budesonide 0.5 mg/2 mL suspension 0.5 mg inhalation BID sob 01/01/22 Unknown History for nebulization (Pulmicort) cetirizine 10 mg tablet (Zyrtec) 10 mg PO DAILY PRN allergies 01/01/22 Unknown History cholecalciferol (vitamin D3) 75 150 mcg PO DAILY 01/01/22 Unknown History mcg (3,000 unit) tablet lactobacillus combination no.9 4 4,000 mmu cells PO DAILY 01/01/22 Unknown History billion cell capsule (Adult 50 Plus Probiotic) zinc gluconate 30 mg tablet 30 mg PO DAILY supplement 01/01/22 Unknown History montelukast 10 mg tablet 10 mg PO DAILY 05/12/23 Unknown History (Singulair) mycophenolate mofetil 500 mg tablet 3,000 mg PO BID AUTOIMMUNE DISEASE 05/12/23 Unknown History diltiazem HCl 120 mg 120 mg PO DAILY #90 caps 11/24/23 Unknown Rx capsule,extended release 24 hr prednisone 1 mg tablet 10 mg PO DAILY 12/09/23 Unknown History metoprolol succinate 25 mg See Rx Instructions .Route 01/27/24 Unknown Rx tablet,extended release 24 hr .COMPLEX #90 TABLETS gabapentin 100 mg capsule 100 mg PO TID 08/22/24 Unknown History apixaban 5 mg tablet (Eliquis) 5 mg PO BID 30 days #60 tabs 08/24/24 Unknown Rx cefdinir 300 mg capsule 300 mg PO BID 3 days #6 caps 08/24/24 Unknown Rx valacyclovir 1 gram tablet 1,000 mg PO TID 1 day #0 tabs 08/24/24 Unknown Rx Allergy/AdvReac Type Severity Reaction Status Date / Time monosodium glutamate Allergy Abd Verified 08/28/24 16:56 cramps/diarrhea Penicillins (PCN) Allergy Rash Verified 08/28/24 16:56 allopurinol AdvReac Unknown cough Verified 08/28/24 16:56 morphine AdvReac Other Verified 08/28/24 16:56 tamsulosin (From Flomax) AdvReac Other Verified 08/28/24 16:56 Family History Grandfather CVA (cerebral vascular accident) Grandmother Congestive heart failure Grandmother Cardiac pacemaker in situ Mother Heart disease Hypertension Father Heart disease Cardiac arrhythmia Surgical History History of incision and drainage Hx of cystoscopy History of umbilical hernia repair History of inguinal hernia repair Social History household members: spouse Smoking Status: Never smoker alcohol intake: current details: Rare substance use type: does not use caffeine: Yes Type: coffee Number of servings: 1 ROS ROS ED Constitutional Constitutional ED: Denies chills, fever(s), subjective or sweats Eyes Eyes: Denies blurry vision or change in vision ENT ENT ED: Denies ear pain, rhinorrhea or sore throat Cardiovascular Cardiovascular: Denies chest pain, orthopnea, palpitations, paroxysmal nocturnal dyspnea or racing heartbeat Respiratory/Chest Respiratory/Chest: Denies cough, dyspnea, dyspnea on exertion, orthopnea or paroxysmal nocturnal dyspnea Gastrointestinal Gastrointestinal: Denies abdominal pain, diarrhea, melena, nausea or vomiting Genitourinary Genitourinary ED: Denies dysuria, hematuria or urinary frequency Musculoskeletal Musculoskeletal: Denies arthralgias or myalgias Integumentary Reports abscess and rash Neurologic Neurologic: Denies headache(s), paresthesias or weakness Psychiatric Psychiatric: Denies anxiety or depression Endocrine Endocrinology: Denies cold intolerance or heat intolerance Hematologic/Lymphatic Hematologic/Lymphatic: Reports systems reviewed and no addt'l complaints, except as documented and easy bruising EXAM Physical Exam Narrative Exam Narrative: Patient's initial heart rate was 65. When I examined her he was very rapid. He was placed on the monitor and had a narrow complex tachycardia with a rate of 1 40-1 50. Rhythm was irregularly irregular consistent with atrial fibrillation. Const Vital Signs: 08/28/24 16:56 08/28/24 16:59 08/28/24 18:06 Temperature 97.7 F L 98.7 F 98.1 F Temperature Source Oral Oral Temporal Pulse Rate 65 86 146 H Pulse Rate [1 (Initial Baseline)] Pulse Rate [2] Respiratory Rate 18 18 19 H Respiratory Rate [1 (Initial Baseline)] Respiratory Rate [2] Respiratory Effort Respiratory Pattern Blood Pressure 109/67 93/76 98/81 H Blood Pressure [1 (Initial Baseline)] Blood Pressure [2] Blood Pressure Mean 81 81 86 Pulse Ox 95 92 96 Oxygen Delivery Method Room Air Room Air Oxygen Delivery Method [1 (Initial Baseline)] EtCo2 (Normal 35-45 , high quality CPR 10-20 & ROSC>/=40mmHg EtCo2 (Normal 35-45 , high quality CPR 10-20 & ROSC>/=40mmHg [2] 08/28/24 18:06 08/28/24 18:08 08/28/24 18:24 Temperature Temperature Source Pulse Rate 153 H Pulse Rate [1 (Initial Baseline)] Pulse Rate [2] Respiratory Rate 22 H Respiratory Rate [1 (Initial Baseline)] Respiratory Rate [2] Respiratory Effort Normal Respiratory Pattern Irregular Blood Pressure 95/75 Blood Pressure [1 (Initial Baseline)] Blood Pressure [2] Blood Pressure Mean Pulse Ox 95 Oxygen Delivery Method Oxygen Delivery Method [1 (Initial Baseline)] EtCo2 (Normal 35-45 , high quality CPR 10-20 & ROSC>/=40mmHg 29 30 EtCo2 (Normal 35-45 , high quality CPR 10-20 & ROSC>/=40mmHg [2] 08/28/24 18:27 08/28/24 18:30 08/28/24 18:35 Temperature Temperature Source Pulse Rate Pulse Rate [1 (Initial Baseline)] 140 H Pulse Rate [2] 139 H Respiratory Rate Respiratory Rate [1 (Initial Baseline)] 23 H Respiratory Rate [2] 23 H Respiratory Effort Respiratory Pattern Blood Pressure Blood Pressure [1 (Initial Baseline)] 99/63 Blood Pressure [2] 99/63 Blood Pressure Mean Pulse Ox Oxygen Delivery Method Room Air Oxygen Delivery Method [1 (Initial Baseline)] Room Air EtCo2 (Normal 35-45 , high quality CPR 10-20 & ROSC>/=40mmHg 28 30 EtCo2 (Normal 35-45 , high quality CPR 10-20 & ROSC>/=40mmHg [2] 24 08/28/24 18:40 08/28/24 18:45 08/28/24 19:00 Temperature Temperature Source Pulse Rate 82 Pulse Rate [1 (Initial Baseline)] Pulse Rate [2] Respiratory Rate Respiratory Rate [1 (Initial Baseline)] Respiratory Rate [2] Respiratory Effort Respiratory Pattern Blood Pressure 102/70 Blood Pressure [1 (Initial Baseline)] Blood Pressure [2] Blood Pressure Mean 80 Pulse Ox 94 Oxygen Delivery Method Room Air Oxygen Delivery Method [1 (Initial Baseline)] EtCo2 (Normal 35-45 , high quality CPR 10-20 & ROSC>/=40mmHg 32 30 EtCo2 (Normal 35-45 , high quality CPR 10-20 & ROSC>/=40mmHg [2] 08/28/24 19:00 Temperature 97.9 F Temperature Source Temporal Pulse Rate 129 H Pulse Rate [1 (Initial Baseline)] Pulse Rate [2] Respiratory Rate 24 H Respiratory Rate [1 (Initial Baseline)] Respiratory Rate [2] Respiratory Effort Respiratory Pattern Blood Pressure 102/70 Blood Pressure [1 (Initial Baseline)] Blood Pressure [2] Blood Pressure Mean 80 Pulse Ox 95 Oxygen Delivery Method Room Air Oxygen Delivery Method [1 (Initial Baseline)] EtCo2 (Normal 35-45 , high quality CPR 10-20 & ROSC>/=40mmHg EtCo2 (Normal 35-45 , high quality CPR 10-20 & ROSC>/=40mmHg [2] Positive well nourished and well developed Constitutional Narrative: Patient does not appear well. General Appearance ED: well developed; Negative for NAD or pallor HEENT Reports dry mucous membranes HEENT Narrative: Trachea is midline. There is no inspiratory stridor. There is no carotid bruits. Mouth ED: Yes dry mucous membranes Mouth: dry mucous membranes Eyes PERRL and EOMs intact bilaterally General Eye ED: Negative for pale conjunctiva or scleral icterus Neck no lymphadenopathy, supple and no JVD Chest Wall inspection of chest normal and palpation of chest normal Resp normal respiratory effort and clear to auscultation bilaterally Cardio no murmurs Rate: tachycardic Rhythm: abnormal rhythm irregularly irregular GI normal to inspection, nondistended, normoactive bowel sounds, non-tender, non- distended and no masses; Negative for hepatosplenomegaly GI Narrative: There is no pulsatile mass or abdominal bruit. Palpation: soft Back/Spine no CVA tenderness Extremity normal to inspection Extremity Narrative: Distal pulses radius and DP 2+ and symmetric there is no edema of the lower extremities. Patient's still has hair on his toes. General Extremety ED: Negative for edema or tenderness General Extremity: Negative for edema Neuro oriented x3, CN's II-XII intact bilaterally and no sensory deficits noted Sensorium / Orientation: alert Motor Exam: strength 5/5 throughout Psych Mood & Affect: depressed Skin no rashes or lesions noted, No no wounds and skin turgor normal Skin Narrative: Patient has a wound with which is granulation tissue 1 x 2 cm mid medial left thigh. There is a area of induration around it. There is no erythema, warmth, lymphangitis or inguinal lymphadenopathy. Patient has no asymmetry of the leg or discoloration or leg vein distention. Furthermore there is no tenderness along the distribution deep venous system. I am not concerned that the indurated area represents a DVT. General Skin Exam: Negative for jaundice or pallor MDM MDM MDM Narrative Medical decision making narrative: Patient is hypotensive with A-fib RVR. Patient was consented for procedural sedation using etomidate and cardioversion. He was cardioverted successfully however he rapidly goes back into A-fib. Since this is transient cardioversion was aborted. He was given 2.5 mg of metoprolol since he is on metoprolol for rate control. Because his pressure is low he also received a 500 cc bolus. Reluctant to treat him with diltiazem which can cause hypotension and raises risk for interaction with beta-rosa maria and calcium channel rosa maria. Lab Data Attestation: I reviewed the patient's lab results. Lab results narrative: White count is elevated 16.4. This may be reactive. There is a slight shift. H&H is unremarkable. Basic metabolic panel is unremarkable. Glucose is elevated 136 with normal CO2 anion gap. Troponin was normal. BNP was normal. Labs: Laboratory Results - last 24 hr 08/28/24 08/28/24 18:00 19:58 WBC 16.4 H RBC 4.78 Hgb 13.9 Hct 44.7 MCV 93.5 MCH 29.1 MCHC 31.1 L RDW Std Deviation 51.0 H RDW Coeff of Opal 14.9 H Plt Count 460 H MPV 8.6 Immature Gran % (Auto) 0.800 Neut % (Auto) 88.6 H Lymph % (Auto) 3.4 L Ch[place] % (Auto) 6.8 Eos % (Auto) 0.0 Baso % (Auto) 0.4 Absolute Neuts (auto) 14.6 H Absolute Lymphs (auto) 0.56 L Nucleated RBC % 0 Sodium 137 Potassium 4.4 Chloride 106 Carbon Dioxide 25.0 Anion Gap 6 BUN 13 Creatinine 1.18 Estim Creat Clear Calc 59.29 Est GFR (MDRD) Af Amer 78 Est GFR (MDRD) Non-Af 65 BUN/Creatinine Ratio 11.0 Glucose 136 H Lactic Acid 1.6 Calcium 9.7 Total Bilirubin 0.60 Direct Bilirubin 0.22 AST 11 L ALT 23 Alkaline Phosphatase 62 Troponin I High Sens 8 B-Natriuretic Peptide 47.5 Total Protein 6.4 Albumin 2.4 L Globulin 4.0 Radiography Chest X-Ray - ED: 1 View and Read by ED Physician (Independent interpretation by me at 2050 reveals limited story volume which makes the interpretation difficult. There is increased marking but there is poor inspiratory volume with only 6 rib seen. Cardiac silhouette is normal. Size is also normal. Ostia structures are unremarkable.) Diagnostic Testing: Clinical Impression(s) from Imaging Studies Chest X-Ray 08/28/24 20:30 IMPRESSION: Bibasilar pulmonary opacities which may be atelectasis or pneumonia similar to the prior examination. Electronically Signed: Lobo Martinez DO at 20:51 EDT , EKG Initial EKG: Attestation: I personally reviewed and interpreted this EKG as follows: Interpretation: Atrial Fibrillation (Rate of 142. Monitor revealed atrial fibs. This may represent atrial flutter. Cures duration 116 ms. QT duration 300 ms. Calera is to the left. There is evidence of a right bundle branch block and left anterior fascicular block.) Treatment and Re-Evaluation :: Became aware of sepsis alert at 1951. In light of this hepatic, UA and lactate were ordered. Suspect patient's white count is a stress response. He is tachycardic due to paroxysmal atrial fibrillation. Comments:: Moderate reveals atrial fibs with a rate of 132. Will contact hospitalist for admission. Procedures Procedural Sedation 1 (Initial Baseline): Consent Signed: Yes You/Your family experience fever (hyperthermia) w/anesthesia: No Sedation medication: Etomidate Dose: 8 Total Moderate Sedation Units: 12 Maliampati Score: Class I ASA Classification: E and III Comment:: Patient was successfully cardioverted. It was transient. Patient's blood pressure initially improved. Is now low. His rate is now controlled in the 80s. Since he is paroxysmal he speeding up to 1 4150 will administer 2.5 mg of metoprolol IV. He is presently on metoprolol. He has been taking his Eliquis for the past week. He states his bill of lading clerk Dr. Lan. His bill of lading clerk p rior to Dr. Lan was Dr. Tim Dacosta. Critical Care Time Critical Care Time: Yes Critical care time (excluding procedures): 30-74 minutes (32), Including time spent: (History, physical, documentation, review of prior records, independent interpretation of laboratory results, imaging, cardioversion), Discussing w/Patient &/or Family/Service Order Taker, Discussing w/Consultants, Arranging Admission or Transfer and Performing Direct Patient Care at Bedside Discharge Plan Triage Chief Complaint: Weakness ED Provider: Demetrius Wells Dx/Rx/DC Orders Clinical Impression: Atrial fibrillation with RVR, RBBB (right bundle branch block), Acute hypotension, Anticoagulant long-term use, Adult failure to thrive, Frequent falls Prescriptions: No Action pantoprazole 40 mg tablet,delayed release (DR/EC) 40 mg PO DAILY Prolia 60 mg/mL syringe 60 mg subcut [id number] cyanocobalamin (vitamin B-12) 500 mcg tablet 500 mcg PO DAILY zinc gluconate 30 mg tablet 30 mg PO DAILY cholecalciferol (vitamin D3) 75 mcg (3,000 unit) tablet 150 mcg PO DAILY Adult 50 Plus Probiotic 4 billion cell capsule 4,000 mmu cells PO DAILY Rx Instructions: administer with a meal budesonide [Pulmicort] 0.5 mg/2 mL suspension for nebulization 0.5 mg inhalation BID cetirizine [Zyrtec] 10 mg tablet 10 mg PO DAILY PRN (Reason: allergies) mycophenolate mofetil 500 mg tablet 3,000 mg PO BID prednisone 1 mg tablet 10 mg PO DAILY montelukast [Singulair] 10 mg tablet 10 mg PO DAILY gabapentin 100 mg capsule 100 mg PO TID Eliquis 5 mg Tablet 5 mg PO BID 30 Days Qty: 60 2RF cefdinir 300 mg capsule 300 mg PO BID 3 Days Qty: 6 0RF valacyclovir 1 gram tablet 1,000 mg PO TID 1 Days Qty: 0 0RF Rx Instructions: He completes Valtrex on night diltiazem HCl 120 mg capsule,extended release 24hr 120 mg PO DAILY Qty: 90 3RF metoprolol succinate 25 mg tablet extended release 24 hr See Rx Instructions .ROUTE .COMPLEX Qty: 90 3RF Dose Instruction: take 1 tablet orally daily Rx Instructions: take 1 tablet orally daily Primary Care Provider: Tanya Pettit Referrals: Tanya Pettit DO [Primary Care Provider] - Print Language: Burundian Disposition Disposition: Acute Care Hospital [facility]
[2024-08-28] MEDS: Etomidate 20 MG/10 ML Vial 10 MG IV (18:40)
[2024-08-28] MEDS: 0.9% Normal Saline (500mL Bag) 500 ML 1000 ML IV (18:40)
[2024-08-28] MEDS: 0.9% Normal Saline (500mL Bag) 500 ML 999 ML IV (20:05)
[2024-08-28] MEDS: Metoprolol Tartrate 5 MG/5 ML Vial 2.5 MG IV (20:06)
[2024-08-28 20:22] LABS: AST(SGOT) 11 U/L (15-37); Alanine Aminotransfer ALT/SGPT 23 U/L (16-61); Albumin, Serum 2.4 g/dL (3.2-5.0); Alkaline Phosphatase 62 U/L (45-117); Bilirubin, Direct 0.22 mg/dL (0.00-0.30); Protein, Total 6.4 g/dL (6.4-8.2)
--- NOTE | 2024-08-28 20:30 | RAD_ITS ---
EXAM: XR CHEST, 1 VIEW CLINICAL INDICATION: Adventitial breath sounds TECHNIQUE: Frontal view of the chest. COMPARISON: 08/22/2024 FINDINGS: LUNGS AND PLEURAL SPACES: Bibasilar pulmonary opacities which may be atelectasis or pneumonia similar to the prior examination. No pneumothorax. No effusion. HEART: No significant abnormality. Cardiac silhouette not enlarged. MEDIASTINUM: Central airways and mediastinal contour are unremarkable. BONES/JOINTS: Degenerative changes in the spine and shoulders. No acute fracture. SOFT TISSUES: No significant abnormality. VASCULATURE: Atherosclerosis. RAD/Chest 1 View (Portable) IMPRESSION: Bibasilar pulmonary opacities which may be atelectasis or pneumonia similar to the prior examination. Electronically Signed: Lobo Martinez DO at 20:51 EDT ,
[2024-08-28 20:41] LABS: Lactic Acid 1.6 mmol/L (0.4-1.9)
--- NOTE | 2024-08-28 21:00 | HP.PCM.HOS_ITS ---
[facility] - General General Date of Admission: 08/28/24 Date of Service: 08/28/24 Chief Complaint: Generalized Weakness, Fall, Adult [id number], Thigh Wound and Recurrent AFIB with RVR. [facility] Narrative YARON BUTLER, is a 73 M with a past medical history of essential hypertension, hyperlipidemia, fatty liver disease, ILD/antisynthetase syndrome; on mycophenolate plus prednisone and chronic home oxygen 3 L NC continuous, history of BOOP, history of vasovagal syncope, history of Right bundle branch block, paroxysmal atrial fibrillation; on metoprolol and Eliquis followed by [facility], history of COVID-19, history of renal calculus; s/p lithotripsy and stent (2020), history of Left thyroid nodule, history of BPH; with intolerance to tamsulosin, history of listed allergy to penicillin (rash), history of Gout; with listed allergy to Allopurinol, GERD, osteoporosis; on Prolia, OA and history of shingles; with recent flare in Left upper extremity triggering admission here from August 22, 2024 to August 24, 2024 with patient taken off of mycophenolate with potential concern for disseminated zoster with suspected underlying pneumonia evaluated by Dr. Alicia of infectious disease recommended Valtrex and to continue taking Bactrim DS who re-presents to [facility] ER complaining of generalized weakness, falls, adult [id number], left thigh wound and recurrent atrial fibrillation with rapid ventricular response. Mr. Martin was apparently seen by his physician Dr. Pettit who recommended he come to the ER for IV antibiotics and ultrasound to evaluate for possible abscess with patient also noted to be in atrial fibrillation with rapid ventricular response of ~130 bpm. His also reports that he fell this morning because of weakness and then could not get up off of the floor without assistance. His furthermore informed the ER physician she is upset because she feels like he was discharged too early during his recent hospitalization. There is no report of fever, chills, nausea, vomiting, dark-colored stools, diarrhea or constipation but he does admit to incontinence of urine as he states he never has enough time to get to the restroom causing him to wear an adult diaper. The ER physician carefully noted granulation tissue, ~1 cm x ~2 cm in the Left medial thigh with an area of induration around it - but no erythema, warmth, lymphangitis or inguinal lymphadenopathy to suggest an abscess or other significant infection so no further treatment was given as he is already on oral Cefdinir and afebrile. He was noted to have laboratory evidence of leukocytosis of 16.4K present on admission with a normal lactate of 1.6 mmol/L present on admission and no signs of sepsis complicated by clinical evidence of PAF; with RVR @ ~130 bpm in spite of Diltiazem and Metoprolol plus Generalized Weakness and Ambulatory Dysfunction with Fall after recent hospitalization and he was then admitted to the PCU under observation status for ongoing care for a stay that is expected to be less than 2 midnights. [facility] Medical History Shingles Abscess of left thigh BOOP (bronchiolitis obliterans with organizing pneumonia) Wears glasses High cholesterol Easy bruising Back pain Injury of head and neck Blackout Gastric reflux Non-smoker On home oxygen therapy Hoarseness Chronic cough History of echocardiogram Hypertension History of stress test Cardiology follow-up encounter History of atrial fibrillation Atrial fibrillation COVID-19 Osteoporosis Kidney stones Atrial fibrillation RBBB (right bundle branch block) Antisynthetase syndrome Essential hypertension Mixed hyperlipidemia Asthma Interstitial lung disease GERD (gastroesophageal reflux disease) Fatty liver BPH (benign prostatic hyperplasia) Lung nodule Vasovagal syncope Abnormal cardiac CT angiography Home Medications ?Medication ?Instructions ?Recorded ?Last Taken ?Type cyanocobalamin (vitamin B-12) 500 500 mcg PO DAILY 07/14/21 Unknown History mcg tablet denosumab 60 mg/mL subcutaneous 60 mg subcut [id number] low calcuim 07/14/21 Unknown History syringe (Prolia) pantoprazole 40 mg tablet,delayed 40 mg PO DAILY 07/14/21 Unknown History release budesonide 0.5 mg/2 mL suspension 0.5 mg inhalation BID sob 01/01/22 Unknown History for nebulization (Pulmicort) cetirizine 10 mg tablet (Zyrtec) 10 mg PO DAILY PRN allergies 01/01/22 Unknown History cholecalciferol (vitamin D3) 75 150 mcg PO DAILY 01/01/22 Unknown History mcg (3,000 unit) tablet lactobacillus combination no.9 4 4,000 mmu cells PO DAILY 01/01/22 Unknown History billion cell capsule (Adult 50 Plus Probiotic) zinc gluconate 30 mg tablet 30 mg PO DAILY supplement 01/01/22 Unknown History montelukast 10 mg tablet 10 mg PO DAILY 05/12/23 Unknown History (Singulair) mycophenolate mofetil 500 mg tablet 3,000 mg PO BID AUTOIMMUNE DISEASE 05/12/23 Unknown History diltiazem HCl 120 mg 120 mg PO DAILY #90 caps 11/24/23 Unknown Rx capsule,extended release 24 hr prednisone 1 mg tablet 10 mg PO DAILY 12/09/23 Unknown History metoprolol succinate 25 mg See Rx Instructions .Route 01/27/24 Unknown Rx tablet,extended release 24 hr .COMPLEX #90 TABLETS gabapentin 100 mg capsule 100 mg PO TID 08/22/24 Unknown History apixaban 5 mg tablet (Eliquis) 5 mg PO BID 30 days #60 tabs 08/24/24 Unknown Rx cefdinir 300 mg capsule 300 mg PO BID 3 days #6 caps 08/24/24 Unknown Rx valacyclovir 1 gram tablet 1,000 mg PO TID 1 day #0 tabs 08/24/24 Unknown Rx Allergy/AdvReac Type Severity Reaction Status Date / Time monosodium glutamate Allergy Abd Verified 08/28/24 16:56 cramps/diarrhea Penicillins (PCN) Allergy Rash Verified 08/28/24 16:56 allopurinol AdvReac Unknown cough Verified 08/28/24 16:56 morphine AdvReac Other Verified 08/28/24 16:56 tamsulosin (From Flomax) AdvReac Other Verified 08/28/24 16:56 Family History Grandfather CVA (cerebral vascular accident) Grandmother Congestive heart failure Grandmother Cardiac pacemaker in situ Mother Heart disease Hypertension Father Heart disease Cardiac arrhythmia Surgical History History of incision and drainage Hx of cystoscopy History of umbilical hernia repair History of inguinal hernia repair Social History household members: spouse Smoking Status: Never smoker alcohol intake: current details: Rare substance use type: does not use caffeine: Yes Type: coffee Number of servings: 1 ROS ROS Narrative Review of Systems: General: Patient admits to fatigue and generalized weakness but he denies fever or chills. HENT: Denies headache, denies stuffy nose, denies sore throat EYES: Denies changes in vision or discharge from eyes. Resp: Denies cough, denies shortness of breath Cardiac: Denies chest pain GI: Denies abdominal pain, denies changes in bowel, had some nausea : Patient admits to incontinence of urine but he denies dysuria or changes in urination. Extremity: Denies swelling Musculoskeletal: Feels somewhat generally weak and unwell Neuro: Patient denies headache, paresthesias or focal neurologic deficits. Heme: Denies any bleeding or bruising Skin: Denies rashes Psychiatric: No complaints voiced related to uncontrolled depression or anxiety. Endocrine: No polyuria, polydipsia or polyphagia. The rest of the 14 point ROS was negative except for positives in HPI. Vital Signs Vital Signs Vital Signs: 08/28/24 16:56 08/28/24 16:59 08/28/24 18:06 Temperature 97.7 F L 98.7 F 98.1 F Temperature Source Oral Oral Temporal Pulse Rate 65 86 146 H Pulse Rate [1 (Initial Baseline)] Pulse Rate [2] Respiratory Rate 18 18 19 H Respiratory Rate [1 (Initial Baseline)] Respiratory Rate [2] Respiratory Effort Respiratory Pattern Blood Pressure 109/67 93/76 98/81 H Blood Pressure [1 (Initial Baseline)] Blood Pressure [2] Blood Pressure Mean 81 81 86 Pulse Ox 95 92 96 Oxygen Delivery Method Room Air Room Air Oxygen Delivery Method [1 (Initial Baseline)] EtCo2 (Normal 35-45 , high quality CPR 10-20 & ROSC>/=40mmHg EtCo2 (Normal 35-45 , high quality CPR 10-20 & ROSC>/=40mmHg [2] 08/28/24 18:06 08/28/24 18:08 08/28/24 18:24 Temperature Temperature Source Pulse Rate 153 H Pulse Rate [1 (Initial Baseline)] Pulse Rate [2] Respiratory Rate 22 H Respiratory Rate [1 (Initial Baseline)] Respiratory Rate [2] Respiratory Effort Normal Respiratory Pattern Irregular Blood Pressure 95/75 Blood Pressure [1 (Initial Baseline)] Blood Pressure [2] Blood Pressure Mean Pulse Ox 95 Oxygen Delivery Method Oxygen Delivery Method [1 (Initial Baseline)] EtCo2 (Normal 35-45 , high quality CPR 10-20 & ROSC>/=40mmHg 29 30 EtCo2 (Normal 35-45 , high quality CPR 10-20 & ROSC>/=40mmHg [2] 08/28/24 18:27 08/28/24 18:30 08/28/24 18:35 Temperature Temperature Source Pulse Rate Pulse Rate [1 (Initial Baseline)] 140 H Pulse Rate [2] 139 H Respiratory Rate Respiratory Rate [1 (Initial Baseline)] 23 H Respiratory Rate [2] 23 H Respiratory Effort Respiratory Pattern Blood Pressure Blood Pressure [1 (Initial Baseline)] 99/63 Blood Pressure [2] 99/63 Blood Pressure Mean Pulse Ox Oxygen Delivery Method Room Air Oxygen Delivery Method [1 (Initial Baseline)] Room Air EtCo2 (Normal 35-45 , high quality CPR 10-20 & ROSC>/=40mmHg 28 30 EtCo2 (Normal 35-45 , high quality CPR 10-20 & ROSC>/=40mmHg [2] 24 08/28/24 18:40 08/28/24 18:45 08/28/24 19:00 Temperature Temperature Source Pulse Rate 82 Pulse Rate [1 (Initial Baseline)] Pulse Rate [2] Respiratory Rate Respiratory Rate [1 (Initial Baseline)] Respiratory Rate [2] Respiratory Effort Respiratory Pattern Blood Pressure 102/70 Blood Pressure [1 (Initial Baseline)] Blood Pressure [2] Blood Pressure Mean 80 Pulse Ox 94 Oxygen Delivery Method Room Air Oxygen Delivery Method [1 (Initial Baseline)] EtCo2 (Normal 35-45 , high quality CPR 10-20 & ROSC>/=40mmHg 32 30 EtCo2 (Normal 35-45 , high quality CPR 10-20 & ROSC>/=40mmHg [2] 08/28/24 19:00 Temperature 97.9 F Temperature Source Temporal Pulse Rate 129 H Pulse Rate [1 (Initial Baseline)] Pulse Rate [2] Respiratory Rate 24 H Respiratory Rate [1 (Initial Baseline)] Respiratory Rate [2] Respiratory Effort Respiratory Pattern Blood Pressure 102/70 Blood Pressure [1 (Initial Baseline)] Blood Pressure [2] Blood Pressure Mean 80 Pulse Ox 95 Oxygen Delivery Method Room Air Oxygen Delivery Method [1 (Initial Baseline)] EtCo2 (Normal 35-45 , high quality CPR 10-20 & ROSC>/=40mmHg EtCo2 (Normal 35-45 , high quality CPR 10-20 & ROSC>/=40mmHg [2] Weight Weight: 172 lb Body Mass Index (BMI) 24.7 Physical Exam Const alert, oriented x3, no apparent distress and average body habitus HEENT normocephalic, head/scalp atraumatic, hearing grossly normal bilaterally and moist oral mucous membranes Eyes PERRL and EOMs intact bilaterally Neck no lymphadenopathy and supple Resp Resp Narrative: Diminished breath sounds at bases. Cardio Cardio Narrative: Irregularly irregular @ ~130 bpm. GI normal to inspection, nondistended, normoactive bowel sounds, soft to palpation, non-tender and non-distended Extremity Extremity Narrative: Patient has an indurated ~1 cm x ~2 cm lesion over his Left medial thigh with no erythema, fluctuance or LAD. Neuro oriented x3, CN's II-XII intact bilaterally, moves all extremities and no focal motor deficits Sensorium / Orientation: awake, alert, oriented to person, oriented to place and oriented to time Speech: speech normal Psych affect normal Results Medical Records Data Attestation: I reviewed the patient's medical records Lab / Micro Data Attestation: I reviewed the patient's lab results. 08/28/24 18:00 08/28/24 18:00 Labs: Laboratory Results - last 24 hr 08/28/24 18:00: WBC 16.4 H, RBC 4.78, Hgb 13.9, Hct 44.7, MCV 93.5, MCH 29.1, M CHC 31.1 L, RDW Std Deviation 51.0 H, RDW Coeff of Opal 14.9 H, Plt Count 460 H, MPV 8.6, Immature Gran % (Auto) 0.800, Neut % (Auto) 88.6 H, Lymph % (Auto) 3.4 L, [place] % (Auto) 6.8, Eos % (Auto) 0.0, Baso % (Auto) 0.4, Absolute Neuts (auto) 14.6 H, Absolute Lymphs (auto) 0.56 L, Nucleated RBC % 0, Sodium 137, Potassium 4.4, Chloride 106, Carbon Dioxide 25.0, Anion Gap 6, BUN 13, Creatinine 1.18, Estim Creat Clear Calc 59.29, Est GFR (MDRD) Af Amer 78, Est GFR (MDRD) Non-Af 65, BUN/Creatinine Ratio 11.0, Glucose 136 H, Calcium 9.7, Troponin I High Sens 8, B-Natriuretic Peptide 47.5 08/28/24 19:58: Lactic Acid 1.6, Total Bilirubin 0.60, Direct Bilirubin 0.22, A ST 11 L, ALT 23, Alkaline Phosphatase 62, Total Protein 6.4, Albumin 2.4 L, Globulin 4.0 Imaging Radiology Impression Chest X-Ray 08/28/24 20:30 IMPRESSION: Bibasilar pulmonary opacities which may be atelectasis or pneumonia similar to the prior examination. Electronically Signed: Lobo Martinez, at 20:51 EDT , Assessment & Plan Assessment/Plan (1) Atrial fibrillation with RVR: (2) Generalized weakness: (3) Ambulatory dysfunction: (4) Frequent falls: (5) History of shingles: (6) Antisynthetase syndrome: PLAN: Plan 1. PAF; with RVR @ ~130 bpm in spite of Diltiazem and Metoprolol plus already on Eliquis, followed by [facility] - Admit to PCU under observation status. Give Digoxin 0.25 mg IV once and aim to keep heart rate ~100 bpm. Otherwise, continue home regimen as previous. Finally, we will consult [facility] to see this patient on-rounds in the AM with help appreciated in advance. 2. Generalized Weakness and Ambulatory Dysfunction with Fall after recent hospitalization complicating #1 - PT/OT and Case Management to consult and treat on-rounds in the AM for further recommendations with help appreciated in advance. 3. Granulation tissue, ~1 cm x ~2 cm in the Left medial thigh with an area of induration around it - but no erythema, warmth, lymphangitis or inguinal lymphadenopathy to suggest an abscess or other significant infection along with laboratory evidence of leukocytosis of 16.4K present on admission with a normal lactate of 1.6 mmol/L present on admission and no signs of sepsis compounding #1 & #2 - Hold oral Cefdinir and start Iv Vancomycin plus give topical antibiotic ointment. Wound RN to see patient on-rounds in the AM for further recommendations with help appreciated in advance. 4. History of shingles; with recent flare in Left upper extremity triggering admission here from August 22, 2024 to August 24, 2024 with patient taken off of mycophenolate with potential concern for disseminated zoster with suspected underlying pneumonia evaluated by Dr. Alicia of infectious disease recommended Valtrex and to continue taking Bactrim DS adding to the medical complexity of #1 - #3 - 5. ILD/antisynthetase syndrome; on mycophenolate plus prednisone and chronic home oxygen 3 L NC continuous - Stable with no evidence of acute flare. 6. Essential hypertension - Continue home medications as previous. 7. Hyperlipidemia - Resume statin. 8. Fatty liver disease - Noted. 9. History of BOOP - Noted. 10. History of vasovagal syncope - Noted. 11. History of Right bundle branch block - Noted. 12. History of COVID-19 - Noted. 13. History of renal calculus; s/p lithotripsy and stent (2020) - Noted with no signs of recurrence at this time. 14. History of Left thyroid nodule - Noted. Check TSH in light of #2. 15. History of BPH; with intolerance to tamsulosin and chronic urinary incontinence - Stable. 16. History of listed allergy to penicillin (rash) - Noted. 17. History of Gout; with listed allergy to Allopurinol - Noted. 18. GERD - Resume PPI. 19. Osteoporosis; on Prolia - Stable. 20. OA - Give Tylenol prn. 21. DVT prophylaxis - Patient on Eliquis for #1 which will be continued. Total time: Approximately 75 minutes. Charges/Coding Visit Charges OBSV E&M: 21519 Observ/hosp same date L2
--- NOTE | 2024-08-28 22:02 | ED.RN ---
dulce maria, patients s.o. informed patient admitted to room 121
[2024-08-28 22:06] LABS: Bacteria 0 SEEN /hpf (None Seen); Mucous, Urine 0 SEEN /hpf (<or=2+); Red Blood Cells-Urine 0 SEEN /hpf (0-5); Squamous Epithelial Cells - UA 0 SEEN /hpf (0-5); White Blood Cells 0 SEEN /hpf (0-5)
[2024-08-28 22:08] LABS: Color, Urine Yellow (Yellow); Glucose, Dipstick Normal (Normal); Ketone-Dipstick Negative (Negative); Leukocyte Esterase-Dipstick Negative /ul (Negative); Nitrite-Dipstick Negative (Negative); Occult Blood-Urine 25 /ul (Negative); Protein-Dipstick 15 mg/dl (Negative); Urine Bilirubin Dipstick Negative (Negative); Urine Clarity Clear (Clear); Urine Urobilinogen Normal (Normal)
[2024-08-28] MEDS: 0.9% Normal Saline (1000mL) 1,000 ML 50 ML IV (22:37)
[2024-08-28] MEDS: Vancomycin HCl 2,000 MG in 0.9% Normal Saline (500mL Bag) 500 ML 250 MG IV (22:37)
[2024-08-28] MEDS: Digoxin 250 MCG/ML Ampul IV (23:02)
[2024-08-28] MEDS: BACITRACIN/POLYMYXIN B 15 GM Tube 1 APPLIC TOPICAL (23:08)
[2024-08-28] MEDS: Acetaminophen 325 MG Tablet 650 MG PO (23:09)
[2024-08-28] MEDS: Gabapentin 100 MG Capsule PO (23:20)
[2024-08-28] MEDS: APIXABAN 5 MG TABLET PO (23:20)
[2024-08-28] MEDS: Acyclovir 800 MG Tablet PO (23:21)
--- NOTE | 2024-08-28 23:35 | PHA.PHARE_ITS ---
Consult Antibiotic Management Pharmacy has been consulted to manage selected antibiotic: Vancomycin Type of Intervention Type of Consult: New start Labs Labs: Sodium 137 mmol/L (136-145) 08/28/24 18:00 Potassium 4.4 mmol/L (3.5-5.1) 08/28/24 18:00 Chloride 106 mmol/L (98-107) 08/28/24 18:00 Carbon Dioxide 25.0 mmol/L (21.0-32.0) 08/28/24 18:00 Anion Gap 6 (5-15) 08/28/24 18:00 BUN 13 mg/dL (7-18) 08/28/24 18:00 Creatinine 1.18 mg/dL (0.70-1.30) 08/28/24 18:00 Est GFR (MDRD) Af Amer 78 mL/min (>60) 08/28/24 18:00 Est GFR (MDRD) Non-Af 65 mL/min (>60) 08/28/24 18:00 BUN/Creatinine Ratio 11.0 RATIO (10-20) 08/28/24 18:00 Glucose 136 mg/dL (74-106) H 08/28/24 18:00 Dosing Weight Weight used for dosin kg Estimated Creatinine Clearance Estimated Creatinine Clearance: 59.29 Goal Trough Goal Trough: 15-20 mcg/mL Pharmacy Plan for Drug Dosing Pharmacy Plan for Drug Dosing: Pharmacy Service will continue to monitor and adjust dosing as required. 2GM LOADING DOSE 08/28 @ 2237. 750MG Q12H TROUGH PRIOR TO 4TH DOSE Follow-Up Labs Follow-Up Labs: Trough: Vancomycin Date/Time Labs Ordered Labs to be done on [date and time ordered]: 08/30 @ 1039
[2024-08-29 04:00] VITALS: BP 116/74; PULSE 80; RESP 20; TEMP 36.6; O2SAT 97
[2024-08-29 04:37] VITALS: BMI 25.1
[2024-08-29] MEDS: Gabapentin 100 MG Capsule PO ×3 (05:33→21:10)
[2024-08-29] MEDS: Acyclovir 800 MG Tablet PO ×5 (05:33→21:10)
[2024-08-29 06:27] LABS: Absolute Lymphocyte Count 0.62 X10^3/uL (0.83-4.51); Absolute Neutrophil Count 8.9 X10^3/uL (2.0-7.7); Basophil# 0.07 X10^3/uL; Basophil% 0.6 % (0-1); Eosinophil# 0.15 X10^3/uL; Eosinophils% 1.4 % (0-5); Hematocrit 38.9 % (40-54); Hemoglobin 12.2 g/dL (13.0-16.5); Lymphocyte # 0.62 X10^3/ul (0.83-4.51); Lymphocyte % 5.7 % (19-41); Mean Corp Hgb Conc 31.4 g/dL (32-36); Mean Corpuscular Hgb 29.4 pg (27.0-32.0); Mean Corpuscular Volume 93.7 fL (80-94); Mean Platelet Vol. 8.6 fl (6.2-12.0); Monocyte# 1.05 X10^3/uL; Monocyte% 9.6 % (0-10); NRBC Flagged by Analyzer 0 % (0-5); Neutrophil # 8.93 X10^3/uL (2.7-7.7); Neutrophil % 81.7 % (47-70); Platelet Count 397 K/mm3 (150-450); RBC Distribution Width SD 50.9 fl (35.1-43.9); Red Blood Count 4.15 M/mm3 (4.6-6.2); White Blood Count 10.9 K/mm3 (4.4-11.0)
[2024-08-29 07:41] LABS: ALB/GLOB Ratio 0.6 RATIO (0.9-2.4); AST(SGOT) 8 U/L (15-37); Alanine Aminotransfer ALT/SGPT 19 U/L (16-61); Albumin, Serum 2.2 g/dL (3.2-5.0); Alkaline Phosphatase 54 U/L (45-117); Anion Gap 5 (5-15); BUN 10 mg/dL (7-18); BUN/Creat Ratio 11.2 RATIO (10-20); Chloride 110 mmol/L (98-107); EST Glomerular Filtration Rate 89 mL/min (>60); Est Glom Filt Rate - Afr Amer 107 mL/min (>60); Estimated Creatinine Clearance 77.73 ml/min; Globulin 3.5 g/dL (2.2-4.2); Glucose 106 mg/dL (74-106); Magnesium 1.9 mg/dL (1.6-2.6); Phosphorus 2.6 mg/dL (2.5-4.9); Potassium 3.6 mmol/L (3.5-5.1); Protein, Total 5.7 g/dL (6.4-8.2); Sodium Level 141 mmol/L (136-145)
--- NOTE | 2024-08-29 07:46 | PCM.CONS.C ---
Assessment & Plan Assessment/Plan (1) Atrial fibrillation: QUALIFIERS: Atrial fibrillation type: longstanding persistent Qualified Code(s): I48.11 - Longstanding persistent atrial fibrillation PLAN: He apparently has a previous history of atrial fibrillation. This is not borne out by his current EKG. My recommendation is that he continue his anticoagulation his echocardiogram demonstrated preserved ejection fraction and I will not make any changes. He is remaining in sinus rhythm at this particular time and no further workup is required momentarily. With respect to his medication regimen I will suggest that we discontinue the diltiazem Increase the beta-rosa maria to 50 mg daily Discontinue the digoxin I will review the monitor from 2021 to see whether there is any definitive evidence of atrial fibrillation. (2) RBBB (right bundle branch block): PLAN: He does have a baseline right bundle branch block. I would not recommend that we make any major changes. (3) Essential hypertension: PLAN: His blood pressure appears to be under good control at this time. HPI Consult Data Date of Consult: 08/29/24 HPI Narrative HPI Narrative: YARON BUTLER, is a 73 M who presents to the emergency room with infectious disease concerns. He was noted to have a rapid tachycardia which was thought to be atrial fibrillation with a rapid ventricular response rate. He was given digoxin as well as diltiazem and admitted to the telemetry care unit. Unfortunately I do not have an EKG to evaluate. His previous EKGs recently have demonstrated sinus tachycardia with premature atrial complexes but no overt atrial fibrillation. There was an event monitor from DecemberJanuary 2022 demonstrating what was reported as atrial flutter, atrial fibrillation, SVT. And he was put on anticoagulation as of then. He also has a history of hypertension and a coronary calcium score from February 2019 demonstrating a coronary calcium score of 359. Stress test performed in 2021 demonstrated no evidence of ischemia. He has had 2 echocardiograms this year which have demonstrated preserved ejection fraction of 60% and 70% respectively with no wall motion abnormalities and no significant valvular abnormalities. He denies any chest pain or shortness of breath or paroxysmal nocturnal dyspnea pedal edema he has been seen by the infectious disease service. [facility] Medical History Shingles Abscess of left thigh BOOP (bronchiolitis obliterans with organizing pneumonia) Wears glasses High cholesterol Easy bruising Back pain Injury of head and neck Blackout Gastric reflux Non-smoker On home oxygen therapy Hoarseness Chronic cough History of echocardiogram Hypertension History of stress test Cardiology follow-up encounter History of atrial fibrillation Atrial fibrillation COVID-19 Osteoporosis Kidney stones Atrial fibrillation RBBB (right bundle branch block) Antisynthetase syndrome Essential hypertension Mixed hyperlipidemia Asthma Interstitial lung disease GERD (gastroesophageal reflux disease) Fatty liver BPH (benign prostatic hyperplasia) Lung nodule Vasovagal syncope Abnormal cardiac CT angiography Home Medications ?Medication ?Instructions ?Recorded ?Last Taken ?Type cyanocobalamin (vitamin B-12) 500 500 mcg PO DAILY 07/14/21 Unknown History mcg tablet denosumab 60 mg/mL subcutaneous 60 mg subcut [id number] low calcuim 07/14/21 Unknown History syringe (Prolia) pantoprazole 40 mg tablet,delayed 40 mg PO DAILY 07/14/21 Unknown History release budesonide 0.5 mg/2 mL suspension 0.5 mg inhalation BID sob 01/01/22 Unknown History for nebulization (Pulmicort) cetirizine 10 mg tablet (Zyrtec) 10 mg PO DAILY PRN allergies 01/01/22 Unknown History cholecalciferol (vitamin D3) 75 150 mcg PO DAILY 01/01/22 Unknown History mcg (3,000 unit) tablet lactobacillus combination no.9 4 4,000 mmu cells PO DAILY 01/01/22 Unknown History billion cell capsule (Adult 50 Plus Probiotic) zinc gluconate 30 mg tablet 30 mg PO DAILY supplement 01/01/22 Unknown History montelukast 10 mg tablet 10 mg PO DAILY 05/12/23 Unknown History (Singulair) mycophenolate mofetil 500 mg tablet 3,000 mg PO BID AUTOIMMUNE DISEASE 05/12/23 Unknown History diltiazem HCl 120 mg 120 mg PO DAILY #90 caps 11/24/23 Unknown Rx capsule,extended release 24 hr prednisone 1 mg tablet 10 mg PO DAILY 12/09/23 Unknown History metoprolol succinate 25 mg See Rx Instructions .Route 01/27/24 Unknown Rx tablet,extended release 24 hr .COMPLEX #90 TABLETS gabapentin 100 mg capsule 100 mg PO TID 08/22/24 Unknown History apixaban 5 mg tablet (Eliquis) 5 mg PO BID 30 days #60 tabs 08/24/24 Unknown Rx cefdinir 300 mg capsule 300 mg PO BID 3 days #6 caps 08/24/24 Unknown Rx valacyclovir 1 gram tablet 1,000 mg PO TID 1 day #0 tabs 08/24/24 Unknown Rx Allergy/AdvReac Type Severity Reaction Status Date / Time monosodium glutamate Allergy Abd Verified 08/28/24 16:56 cramps/diarrhea Penicillins (PCN) Allergy Rash Verified 08/28/24 16:56 allopurinol AdvReac Unknown cough Verified 08/28/24 16:56 morphine AdvReac Other Verified 08/28/24 16:56 tamsulosin (From Flomax) AdvReac Other Verified 08/28/24 16:56 Family History Grandfather CVA (cerebral vascular accident) Grandmother Congestive heart failure Grandmother Cardiac pacemaker in situ Mother Heart disease Hypertension Father Heart disease Cardiac arrhythmia Surgical History History of incision and drainage Hx of cystoscopy History of umbilical hernia repair History of inguinal hernia repair Social History household members: spouse Smoking Status: Never smoker alcohol intake: current details: Rare substance use type: does not use caffeine: Yes Type: coffee Number of servings: 1 ROS Constitutional Constitutional: Denies fever(s) or weight loss Eyes Eyes: Reports systems reviewed and no addt'l complaints, except as documented ENT HEENT: Reports systems reviewed and no addt'l complaints, except as documented Cardiovascular Cardiovascular: Denies chest pain at rest, chest pain with activity, dyspnea at rest, dyspnea on exertion, edema, palpitations or paroxysmal nocturnal dyspnea Respiratory/Chest Respiratory/Chest: Denies dyspnea on exertion, productive cough, shortness of breath at rest or shortness of breath with exertion Gastrointestinal Gastrointestinal: Denies change in bowel habits, nausea, vomiting or weight changes Genitourinary Genitourinary: Denies difficulty urinating Musculoskeletal Musculoskeletal: Denies joint stiffness or muscle weakness Integumentary Integumentary: Denies lesions Neurologic Neurologic: Denies dizziness or syncope Psychiatric Psychiatric: Denies anxiety Endocrine Endocrinology: Denies excessive sweating or fatigue Hematologic/Lymphatic Hematologic/Lymphatic: Denies anemia Allergic/Immunologic Allergic/Immunologic: Denies seasonal rhinorrhea Physical Exam Const alert, oriented x3 and no apparent distress General Appearance: cooperative HEENT hearing grossly normal bilaterally Head and Scalp: atraumatic Eyes EOMs intact bilaterally Neck General: normal visual inspection Chest inspection of chest normal and palpation of chest normal Resp normal respiratory effort Auscultation: clear to auscultation bilaterally Cardio regular rate, regular rhythm, S1 normal heart sound and S2 normal heart sound Jugular Venous Distention: JVD GI normal to inspection, nondistended, normoactive bowel sounds Extremity normal capillary refill and no pedal edema Peripheral Pulses: Yes pulses 2+ throughout and femoral pulses present Skin no rashes or lesions noted Neuro oriented x3 and CN's II-XII intact bilaterally Psych Appearance: grossly normal and appropriate Risk Stratification Risk Stratification Applicable: No Objective Data Vital Signs: Vital Signs Temp Pulse Resp BP Pulse Ox O2 Del Method 98 F 80 20 H 116/74 97 Room Air 08/29/24 04:00 08/29/24 04:00 08/29/24 04:00 08/29/24 04:00 08/29/24 04:00 08/29/24 04:00 Oxygen Delivery Method [1 ( Room Air Initial Baseline)] Oxygen Delivery Method Room Air Weight: 175 lb 4.28 oz Body Mass Index (BMI) 25.1 Intake & Output: Intake and Output for Last 24 Hours 08/27/24 08/28/24 08/29/24 23:59 23:59 23:59 Intake Total 1000 / 1180 720 / 720 Balance 1000 / 1180 720 / 720 Lab / Micro Data 08/29/24 06:10 08/29/24 06:10 Labs: Laboratory Results - last 24 hr 08/28/24 18:00: WBC 16.4 H, RBC 4.78, Hgb 13.9, Hct 44.7, MCV 93.5, MCH 29.1, MCHC 31.1 L, RDW Std Deviation 51.0 H, RDW Coeff of Opal 14.9 H, Plt Count 460 H, MPV 8.6, Immature Gran % (Auto) 0.800, Neut % (Auto) 88.6 H, Lymph % (Auto) 3.4 L, [place] % (Auto) 6.8, Eos % (Auto) 0.0, Baso % (Auto) 0.4, Absolute Neuts (auto) 14.6 H, Absolute Lymphs (auto) 0.56 L, Nucleated RBC % 0, Sodium 137, Potassium 4.4, Chloride 106, Carbon Dioxide 25.0, Anion Gap 6, BUN 13, Creatinine 1.18, Estim Creat Clear Calc 59.29, Est GFR (MDRD) Af Amer 78, Est GFR (MDRD) Non-Af 65, BUN/Creatinine Ratio 11.0, Glucose 136 H, Calcium 9.7, Troponin I High Sens 8, B-Natriuretic Peptide 47.5 08/28/24 19:58: Lactic Acid 1.6, Total Bilirubin 0.60, Direct Bilirubin 0.22, AST 11 L, ALT 23, Alkaline Phosphatase 62, Total Protein 6.4, Albumin 2.4 L, Globulin 4.0 08/28/24 21:58: Urine Color Yellow, Urine Clarity Clear, Urine pH 6.0, Ur Specific [place] 1.020, Urine Protein 15 H, Urine Glucose (UA) Normal, Urine Ketones Negative, Urine Occult Blood 25 H, Urine Nitrite Negative, Urine Bilirubin Negative, Urine Urobilinogen Normal, Ur Leukocyte Esterase Negative, Urine RBC 0 SEEN, Urine WBC 0 SEEN, Ur Squamous Epith Cells 0 SEEN, Urine Bacteria 0 SEEN, Urine Mucus 0 SEEN 08/29/24 06:10: WBC 10.9, RBC 4.15 L, Hgb 12.2 L, Hct 38.9 L, MCV 93.7, MCH 29.4, MCHC 31.4 L, RDW Std Deviation 50.9 H, RDW Coeff of Opal 15.0 H, Plt Count 397, MPV 8.6, Immature Gran % (Auto) 1.000 H, Neut % (Auto) 81.7 H, Lymph % (Auto) 5.7 L, [place] % (Auto) 9.6, Eos % (Auto) 1.4, Baso % (Auto) 0.6, Absolute Neuts (auto) 8.9 H, Absolute Lymphs (auto) 0.62 L, Nucleated RBC % 0, Sodium 141, Potassium 3.6, Chloride 110 H, Carbon Dioxide 26.0, Anion Gap 5, BUN 10, Creatinine 0.90, Estim Creat Clear Calc 77.73, Est GFR (MDRD) Af Amer 107, Est GFR (MDRD) Non-Af 89, BUN/Creatinine Ratio 11.2, Glucose 106, Calcium 9.0, Phosphorus 2.6, Magnesium 1.9, Total Bilirubin 0.50, AST 8 L, ALT 19, Alkaline Phosphatase 54, Total Protein 5.7 L, Albumin 2.2 L, Globulin 3.5, Albumin/Globulin Ratio 0.6 L, TSH 2.290 Cardiology Labs/Tests 08/28/24 18:00: WBC 16.4 H, RBC 4.78, Hgb 13.9, Hct 44.7, MCV 93.5, MCH 29.1, MCHC 31.1 L, Plt Count 460 H, MPV 8.6, Immature Gran % (Auto) 0.800, Neut % (Auto) 88.6 H, Lymph % (Auto) 3.4 L, [place] % (Auto) 6.8, Eos % (Auto) 0.0, Baso % (Auto) 0.4, Absolute Neuts (auto) 14.6 H, Nucleated RBC % 0, Sodium 137, Potassium 4.4, Chloride 106, Carbon Dioxide 25.0, Anion Gap 6, BUN 13, Creatinine 1.18, Est GFR (MDRD) Af Amer 78, Est GFR (MDRD) Non-Af 65, BUN/Creatinine Ratio 11.0, Glucose 136 H, Calcium 9.7, B-Natriuretic Peptide 47.5 08/28/24 19:58: Lactic Acid 1.6, Total Bilirubin 0.60, Direct Bilirubin 0.22 08/28/24 21:58: Urine Color Yellow, Urine Clarity Clear, Urine pH 6.0, Ur Specific [place] 1.020, Urine Protein 15 H, Urine Glucose (UA) Normal, Urine Ketones Negative, Urine Occult Blood 25 H, Urine Nitrite Negative, Urine Bilirubin Negative, Urine Urobilinogen Normal, Ur Leukocyte Esterase Negative, Urine RBC 0 SEEN, Urine WBC 0 SEEN 08/29/24 06:10: WBC 10.9, RBC 4.15 L, Hgb 12.2 L, Hct 38.9 L, MCV 93.7, MCH 29.4, MCHC 31.4 L, Plt Count 397, MPV 8.6, Immature Gran % (Auto) 1.000 H, Neut % (Auto) 81.7 H, Lymph % (Auto) 5.7 L, [place] % (Auto) 9.6, Eos % (Auto) 1.4, Baso % (Auto) 0.6, Absolute Neuts (auto) 8.9 H, Nucleated RBC % 0, Sodium 141, Potassium 3.6, Chloride 110 H, Carbon Dioxide 26.0, Anion Gap 5, BUN 10, Creatinine 0.90, Est GFR (MDRD) Af Amer 107, Est GFR (MDRD) Non-Af 89, BUN/Creatinine Ratio 11.2, Glucose 106, Calcium 9.0, Phosphorus 2.6, Magnesium 1.9, Total Bilirubin 0.50 Rhythm: EKG: ECHO: Stress Test: Cardiac Cath: PCI: CT Surgery: Holter monitor: EPS: PPM: CXR: Chest CT Scan: Radiography Diagnostic Testing: Radiology Impression Chest X-Ray 08/28/24 20:30 IMPRESSION: Bibasilar pulmonary opacities which may be atelectasis or pneumonia similar to the prior examination. Electronically Signed: Lobo Martinez DO at 20:51 EDT ,
--- NOTE | 2024-08-29 08:22 | CT_ITS ---
STUDY: CT LEFT FEMUR WITHOUT CONTRAST REASON FOR EXAM: Male, 73 years old. ? Abscess Medial L Thigh RADIATION DOSAGE (If Supplied By Facility): CTDIvol = ( 15.35 ) mGy, DLP = ( 829.65 ) mGycm TECHNIQUE: Transaxial CT imaging of the femur was performed. Sagittal and coronal images were reconstructed. 3-D images were reconstructed. Individualized dose optimization techniques were used for this CT. COMPARISON: None. FINDINGS: Normal visualized femur. Vascular calcification. There is a 3.2 cm x 0.7 cm x 1 cm area of increased markings in the medial aspect of the left mid thigh posteriorly. This corresponds to the overlying skin thickening and possible skin lesion. There is a focal area of decreased attenuation within the soft tissue density which may represent either early necrosis or possible early abscess formation. No evidence of air within the soft tissues. CT/Extremity Lower without Contra IMPRESSION: Along the posterior medial midportion of the left thigh, there is evidence of a 3.2 cm x 0.7 cm x 1 cm area of increased markings with overlying skin thickening. A subcentimeter focal area of decreased attenuation is seen suggestive of either necrosis and/or early abscess formation. No air is seen within the collection at this time. Electronically Signed: Harinder Melton MD at 9:21 EDT ,
[2024-08-29 09:20] VITALS: BP 112/86; PULSE 88; RESP 18; TEMP 36.8; O2SAT 92
[2024-08-29 09:32] VITALS: BP 112/86; PULSE 88
[2024-08-29] MEDS: Lactobacillis Acidophilus 1 CAP PO (09:32)
[2024-08-29] MEDS: Montelukast 10 MG Tablet PO (09:32)
[2024-08-29] MEDS: Cholecalciferol (VIT D3) 25 MCG TABLET (1,000 UNITS) PO (09:32)
[2024-08-29] MEDS: Cholecalciferol (Vit D3) 125 MCG CAPSULE (5,000 UNITS) PO (09:32)
[2024-08-29] MEDS: APIXABAN 5 MG TABLET PO ×2 (09:32→21:10)
[2024-08-29] MEDS: Pantoprazole Sodium 40 MG Tablet PO (09:32)
[2024-08-29] MEDS: predniSONE 10 MG Tablet PO (09:32)
[2024-08-29] MEDS: Cyanocobalamin 500 MCG Tablet PO (09:32)
[2024-08-29] MEDS: Metoprolol(XL)Succ 50 MG Tablet PO (09:32)
[2024-08-29] MEDS: Zinc Sulfate 50 mg zinc (220 mg) ORAL capsule PO (09:32)
[2024-08-29] MEDS: Ensure Plus High Protein 120 ML LIQUID PO ×3 (09:33→17:20)
[2024-08-29] MEDS: levoFLOXacin IV 750 MG/150 ML BAG 100 MG IV (09:35)
[2024-08-29] MEDS: BACITRACIN/POLYMYXIN B 15 GM Tube 1 APPLIC TOPICAL (09:39)
[2024-08-29] MEDS: 0.9% Saline Lock 10 ML Syringe IV ×2 (10:01→21:10)
[2024-08-29] MEDS: Vancomycin IV 1,000 MG/200 ML BAG 200 MG IV ×2 (11:16→22:26)
--- NOTE | 2024-08-29 12:02 | EX.PCM.CON.S ---
Assessment & Plan Assessment/Plan (1) Abscess of left thigh: PLAN: I have been consulted to evaluate patient's left inner thigh wound. I have discussed this patient with Dr. Krishna and reviewed the CT scan of the left lower extremity with him as well. It appears the wound continues to heal. I am not seeing any increased swelling or fluctuance noted. There is no erythema to indicate additional fluid pocket. After reviewing the CT scan, there is no indication to pursue further debridement or surgical intervention. There are no drainable fluid collections. I do not believe the left inner thigh wound is the source of his admitting leukocytosis or his left shift. I have discussed this patient with Dr. Quiñonez. I am recommending the patient continue IV antibiotics for at least 24 hours and switching to oral Augmentin with restarting his prophylactic Bactrim at discharge. I talked with [facility]ini, who will educate the patient on using hydrogel with Aquacel AG. He will change this dressing daily. I would like to have him follow-up with me in 1 week from discharge to re-evaluate the wound. Patient has had the opportunity to ask and have questions answered. Patient verbally understands and agrees with the plan. Thank you for allowing us to participate in this patient's ongoing care. We will follow as needed. HPI Consult Data Date of Consult: 08/29/24 HPI Narrative Reason for Consultation: Left medial inner thigh wound HPI Narrative: YARON BUTLER, is a 73 M who presents with generalized weakness and fall. Patient was found to be in Afib with RVR. He was cardioverted in the ED. Patient was recently hospitalized with shingles and worsening dyspnea on exertion. Patient was placed on cefdinir at discharge for 3 days. Patient is known to me. He was referred to our office by his PCP for an inner thigh abscess in June. Patient had multiple days of IV antibiotic treatment completed by his PCP prior to seeing me in the office. I performed an incision and drainage of the left inner thigh abscess on 07/20/24. Patient had last seen me in the office on 08/17/24. I had recommended an ultrasound evaluation of the left inner thigh wound as there was some firmness palpated medially to the open wound. Patient was hospitalized and was unable to obtain this imaging as an outpatient. Patient denies any true change in the medial thigh wound. He denies any increased drainage. He denies any increased redness or pain associated with the medial thigh wound. Patient states he has denies any concerns with the medial thigh wound. He has been changing the dressing daily. He was to obtain an ultrasound of the left inner thigh wound as an outpatient, however he has been hospitalized and was unable to schedule the imaging. Patient was able to have a CT scan of the left lower extremity which demonstrated a 3.2 x 0.7 x 1.0 cm area of overlying skin thickening. A subcentimeter focal area of possible necrosis and/or early abscess formation. COUNTS INCLUDE 234 BEDS AT THE [facility] Medical History Shingles Abscess of left thigh BOOP (bronchiolitis obliterans with organizing pneumonia) Wears glasses High cholesterol Easy bruising Back pain Injury of head and neck Blackout Gastric reflux Non-smoker On home oxygen therapy Hoarseness Chronic cough History of echocardiogram Hypertension History of stress test Cardiology follow-up encounter History of atrial fibrillation Atrial fibrillation COVID-19 Osteoporosis Kidney stones Atrial fibrillation RBBB (right bundle branch block) Antisynthetase syndrome Essential hypertension Mixed hyperlipidemia Asthma Interstitial lung disease GERD (gastroesophageal reflux disease) Fatty liver BPH (benign prostatic hyperplasia) Lung nodule Vasovagal syncope Abnormal cardiac CT angiography Home Medications ?Medication ?Instructions ?Recorded ?Last Taken ?Type cyanocobalamin (vitamin B-12) 500 500 mcg PO DAILY 07/14/21 Unknown History mcg tablet denosumab 60 mg/mL subcutaneous 60 mg subcut [id number] low calcuim 07/14/21 Unknown History syringe (Prolia) pantoprazole 40 mg tablet,delayed 40 mg PO DAILY 07/14/21 Unknown History release budesonide 0.5 mg/2 mL suspension 0.5 mg inhalation BID sob 01/01/22 Unknown History for nebulization (Pulmicort) cetirizine 10 mg tablet (Zyrtec) 10 mg PO DAILY PRN allergies 01/01/22 Unknown History cholecalciferol (vitamin D3) 75 150 mcg PO DAILY 01/01/22 Unknown History mcg (3,000 unit) tablet lactobacillus combination no.9 4 4,000 mmu cells PO DAILY 01/01/22 Unknown History billion cell capsule (Adult 50 Plus Probiotic) zinc gluconate 30 mg tablet 30 mg PO DAILY supplement 01/01/22 Unknown History montelukast 10 mg tablet 10 mg PO DAILY 05/12/23 Unknown History (Singulair) mycophenolate mofetil 500 mg tablet 3,000 mg PO BID AUTOIMMUNE DISEASE 05/12/23 Unknown History diltiazem HCl 120 mg 120 mg PO DAILY #90 caps 11/24/23 Unknown Rx capsule,extended release 24 hr prednisone 1 mg tablet 10 mg PO DAILY 12/09/23 Unknown History metoprolol succinate 25 mg See Rx Instructions .Route 01/27/24 Unknown Rx tablet,extended release 24 hr .COMPLEX #90 TABLETS gabapentin 100 mg capsule 100 mg PO TID 08/22/24 Unknown History apixaban 5 mg tablet (Eliquis) 5 mg PO BID 30 days #60 tabs 08/24/24 Unknown Rx cefdinir 300 mg capsule 300 mg PO BID 3 days #6 caps 08/24/24 Unknown Rx valacyclovir 1 gram tablet 1,000 mg PO TID 1 day #0 tabs 08/24/24 Unknown Rx Allergy/AdvReac Type Severity Reaction Status Date / Time monosodium glutamate Allergy Abd Verified 08/28/24 16:56 cramps/diarrhea Penicillins (PCN) Allergy Rash Verified 08/28/24 16:56 allopurinol AdvReac Unknown cough Verified 08/28/24 16:56 morphine AdvReac Other Verified 08/28/24 16:56 tamsulosin (From Flomax) AdvReac Other Verified 08/28/24 16:56 Family History Grandfather CVA (cerebral vascular accident) Grandmother Congestive heart failure Grandmother Cardiac pacemaker in situ Mother Heart disease Hypertension Father Heart disease Cardiac arrhythmia Surgical History History of incision and drainage Hx of cystoscopy History of umbilical hernia repair History of inguinal hernia repair Social History household members: spouse Smoking Status: Never smoker alcohol intake: current details: Rare substance use type: does not use caffeine: Yes Type: coffee Number of servings: 1 ROS Constitutional Constitutional: Reports fatigue Eyes Eyes: Reports systems reviewed and no addt'l complaints, except as documented ENT HEENT: Reports dizziness Respiratory/Chest Respiratory/Chest: Reports dyspnea, dyspnea on exertion and portable oxygen @ home Gastrointestinal Gastrointestinal: Reports systems reviewed and no addt'l complaints, except as documented Genitourinary Genitourinary: Reports systems reviewed and no addt'l complaints, except as documented Musculoskeletal Musculoskeletal: Reports systems reviewed and no addt'l complaints, except as documented Integumentary Integumentary: Reports rash Neurologic Neurologic: Reports dizziness and weakness Psychiatric Psychiatric: Reports systems reviewed and no addt'l complaints, except as documented Endocrine Endocrinology: Reports systems reviewed and no addt'l complaints, except as documented Hematologic/Lymphatic Hematologic/Lymphatic: Reports systems reviewed and no addt'l complaints, except as documented Allergic/Immunologic Allergic/Immunologic: Reports systems reviewed and no addt'l complaints, except as documented Physical Exam Const alert, oriented x3 and no apparent distress HEENT normocephalic and head/scalp atraumatic Eyes PERRL Neck full ROM Lymph Lymphatic: no lymphadenopathy noted Resp Effort and Inspection: pursed lip breathing Auscultation: diminished lung sounds bilateral lower Cardio Rate: regular rate Rhythm: abnormal rhythm GI normal to inspection, nondistended, normoactive bowel sounds no CVA tenderness Back/Spine no CVA tenderness Extremity Extremity Narrative: Left medial thigh- a 2 cm open wound with healthy granulation and eschar noted throughout. Nontender to palpation. Small amount of purulent drainage noted on the bandage. No erythema noted surrounding the open wound. Tissue surrounding the open wound is soft. Not able to express any drainage out of the wound. Wound was cleansed with betadine, adaptic and dry gauze was applied and secured with tape. Skin Rashes: rashes noted Neuro no focal motor deficits and no sensory deficits noted Psych mental status grossly normal Lab / Micro Data 08/29/24 06:10 08/29/24 06:10 Labs: Laboratory Results - last 24 hr 08/28/24 18:00: WBC 16.4 H, RBC 4.78, Hgb 13.9, Hct 44.7, MCV 93.5, MCH 29.1, MCHC 31.1 L, RDW Std Deviation 51.0 H, RDW Coeff of Opal 14.9 H, Plt Count 460 H, MPV 8.6, Immature Gran % (Auto) 0.800, Neut % (Auto) 88.6 H, Lymph % (Auto) 3.4 L, [place] % (Auto) 6.8, Eos % (Auto) 0.0, Baso % (Auto) 0.4, Absolute Neuts (auto) 14.6 H, Absolute Lymphs (auto) 0.56 L, Nucleated RBC % 0, Sodium 137, Potassium 4.4, Chloride 106, Carbon Dioxide 25.0, Anion Gap 6, BUN 13, Creatinine 1.18, Estim Creat Clear Calc 59.29, Est GFR (MDRD) Af Amer 78, Est GFR (MDRD) Non-Af 65, BUN/Creatinine Ratio 11.0, Glucose 136 H, Calcium 9.7, Troponin I High Sens 8, B-Natriuretic Peptide 47.5 08/28/24 19:58: Lactic Acid 1.6, Total Bilirubin 0.60, Direct Bilirubin 0.22, AST 11 L, ALT 23, Alkaline Phosphatase 62, Total Protein 6.4, Albumin 2.4 L, Globulin 4.0 08/28/24 21:58: Urine Color Yellow, Urine Clarity Clear, Urine pH 6.0, Ur Specific [place] 1.020, Urine Protein 15 H, Urine Glucose (UA) Normal, Urine Ketones Negative, Urine Occult Blood 25 H, Urine Nitrite Negative, Urine Bilirubin Negative, Urine Urobilinogen Normal, Ur Leukocyte Esterase Negative, Urine RBC 0 SEEN, Urine WBC 0 SEEN, Ur Squamous Epith Cells 0 SEEN, Urine Bacteria 0 SEEN, Urine Mucus 0 SEEN 08/29/24 06:10: WBC 10.9, RBC 4.15 L, Hgb 12.2 L, Hct 38.9 L, MCV 93.7, MCH 29.4, MCHC 31.4 L, RDW Std Deviation 50.9 H, RDW Coeff of Opal 15.0 H, Plt Count 397, MPV 8.6, Immature Gran % (Auto) 1.000 H, Neut % (Auto) 81.7 H, Lymph % (Auto) 5.7 L, [place] % (Auto) 9.6, Eos % (Auto) 1.4, Baso % (Auto) 0.6, Absolute Neuts (auto) 8.9 H, Absolute Lymphs (auto) 0.62 L, Nucleated RBC % 0, Sodium 141, Potassium 3.6, Chloride 110 H, Carbon Dioxide 26.0, Anion Gap 5, BUN 10, Creatinine 0.90, Estim Creat Clear Calc 77.73, Est GFR (MDRD) Af Amer 107, Est GFR (MDRD) Non-Af 89, BUN/Creatinine Ratio 11.2, Glucose 106, Calcium 9.0, Phosphorus 2.6, Magnesium 1.9, Total Bilirubin 0.50, AST 8 L, ALT 19, Alkaline Phosphatase 54, Total Protein 5.7 L, Albumin 2.2 L, Globulin 3.5, Albumin/Globulin Ratio 0.6 L, TSH 2.290, Cortisol 8.70 Imaging Radiology Impression Chest X-Ray 08/28/24 20:30 IMPRESSION: Bibasilar pulmonary opacities which may be atelectasis or pneumonia similar to the prior examination. Electronically Signed: Lobo Martinez DO at 20:51 EDT , Lower Extremity CT 08/29/24 08:22 IMPRESSION: Along the posterior medial midportion of the left thigh, there is evidence of a 3.2 cm x 0.7 cm x 1 cm area of increased markings with overlying skin thickening. A subcentimeter focal area of decreased attenuation is seen suggestive of either necrosis and/or early abscess formation. No air is seen within the collection at this time. Electronically Signed: Harinder Melton MD at 9:21 EDT , Charges/Coding Visit Charges Inpatient E&M: 81181 Init Hosp L2
--- NOTE | 2024-08-29 14:47 | CASEMGMT ---
Therapy said patient did fine and does not need to go to a prison. Patient stated he doesn't want to go to a prison, but his wants him to. SW provided patient with a list of local nursing homes with their private pay costs. Sandhya PUENTES
[2024-08-29 15:20] VITALS: BP 91/68; PULSE 102; RESP 18; TEMP 37.3; O2SAT 94
--- NOTE | 2024-08-29 15:51 | CASEMGMT ---
Per physician patient's is present and would like patient to go to [facility] Acute Rehab. GRISELDA obtained private pay costs. Once therapy puts there notes in computer Rae will review for Rehab. GRISELDA went to patient's room. Introduced self and role at [facility]. SW provided them with private pay costs for [facility] Acute Rehab. They would like patient to go there. GRISELDA explained that Rehab Unit will have to review his therapy notes and accept him. GRISELDA explained SW will not have an answer today. GRISELDA also told them to have a couple of other options in mind in the event Rehab cannot accept. Second choice is TCU. Referral made to Rehab. Sandhya PUENTES
--- NOTE | 2024-08-29 15:55 | WOUNDNOTE ---
wound photo: left medial thigh
[2024-08-29] MEDS: Juven (unflavored) Packet 1 PACKET PO (17:19)
--- NOTE | 2024-08-29 18:29 | PN.HOSP_ITS ---
Reason for Visit Reason for Visit: Generalized weakness/falls Subjective Subjective I talked to the patient and his both together and separately. It sounds there is some discordance between how he is doing functionally at home. She states he is falling frequently. He reports that he does not fall frequently. I was able to talk to his primary care physician and he is having some falls intermittently that are associated with some presyncopal type episodes at which time he gets lightheaded. He acknowledged these events but states he typically is able to sit down and does not fall. We did discuss that he did extremely well with therapy and does not qualify however she wants him to go to therapy and will pay [id number] for him to go to rehab if accepted. We are currently waiting for the decision from rehab on admission. Objective Data Objective Data Vital Signs: Vital Signs Temp Pulse Resp BP Pulse Ox O2 Del Method 99.1 F 102 H 18 91/68 94 Room Air 08/29/24 15:20 08/29/24 15:20 08/29/24 15:20 08/29/24 15:20 08/29/24 15:20 08/29/24 15:20 Oxygen Delivery Method [1 ( Room Air Initial Baseline)] Oxygen Delivery Method Room Air Weight: 79.5 kg Body Mass Index (BMI) 25.1 Intake & Output: Intake and Output for Last 24 Hours 08/27/24 08/28/24 08/29/24 23:59 23:59 23:59 Intake Total 1000 / 1180 2306.67 / 2306.67 Balance 1000 / 1180 2306.67 / 2306.67 Medical Nutrition Assessment Dietitian: Malnutrition Criteria Met Start: 08/29/24 15:53 Freq: Status: Active Protocol: Document 08/29/24 15:53 SB (Rec: 08/29/24 15:53 SB [id number]) Nutrition Malnutrition Evidence of Malnutrition Exists Yes Malnutrition (severe): Acute Illness/Injury Evidenced By Suboptimal Energy Intake ( Severe),Weight Loss (Severe) Intake Problem Increased Nutrient Needs (specify) Etiology protein related to wound healing Signs/Symptoms as evidenced by abscess on left thigh Status Active Problem Inadequate Oral Intake Etiology related to limited food acceptance d/t lack of taste Signs/Symptoms as evidenced by PO meeting ~50 % of estimated nutrition needs , per pt report. Status Active Problem Clinical Problem Acute Disease or Injury Related Malnutrition Etiology severe malnutrition related to inadequate oral intake Signs/Symptoms as evidenced by 5.5% unintentional weight loss x 4 days and PO meeting <75% of estimated energy intake x 2 months.? Status Active Problem Unintended Weight Loss Etiology related to inadequate oral intake Signs/Symptoms as evidenced by 5.5% weight loss x 4 days. Status Active Problem Recommendation Dietitian Recommendations/Changes Continue cardiac/1999 calorie controlled diet to manage current medical conditions. Continue 120ml ensure plus high protein TID with medpass and Shay BID with medpass. Will adjust ONS, as appetite improves. Will monitor weight, as available and assess for malnutrition at time of follow -up. Reviewed and approved by Giorgio Barnes, MS, RDN, LD. Lab / Micro Data 08/29/24 06:10 08/29/24 06:10 Labs: Laboratory Results - last 24 hr 08/28/24 18:00: Sodium 137, Potassium 4.4, Chloride 106, Carbon Dioxide 25.0, Anion Gap 6, BUN 13, Creatinine 1.18, Estim Creat Clear Calc 59.29, Est GFR (MDRD) Af Amer 78, Est GFR (MDRD) Non-Af 65, BUN/Creatinine Ratio 11.0, Glucose 136 H, Calcium 9.7, Troponin I High Sens 8, B-Natriuretic Peptide 47.5 08/28/24 19:58: Lactic Acid 1.6, Total Bilirubin 0.60, Direct Bilirubin 0.22, A ST 11 L, ALT 23, Alkaline Phosphatase 62, Total Protein 6.4, Albumin 2.4 L, Globulin 4.0 08/28/24 21:58: Urine Color Yellow, Urine Clarity Clear, Urine pH 6.0, Ur Specific [place] 1.020, Urine Protein 15 H, Urine Glucose (UA) Normal, Urine Ketones Negative, Urine Occult Blood 25 H, Urine Nitrite Negative, Urine Bilirubin Negative, Urine Urobilinogen Normal, Ur Leukocyte Esterase Negative, Urine RBC 0 SEEN, Urine WBC 0 SEEN, Ur Squamous Epith Cells 0 SEEN, Urine Bacteria 0 SEEN, Urine Mucus 0 SEEN 08/29/24 06:10: WBC 10.9, RBC 4.15 L, Hgb 12.2 L, Hct 38.9 L, MCV 93.7, MCH 29.4, MCHC 31.4 L, RDW Std Deviation 50.9 H, RDW Coeff of Opal 15.0 H, Plt Count 397, MPV 8.6, Immature Gran % (Auto) 1.000 H, Neut % (Auto) 81.7 H, Lymph % (Auto) 5.7 L, [place] % (Auto) 9.6, Eos % (Auto) 1.4, Baso % (Auto) 0.6, Absolute Neuts (auto) 8.9 H, Absolute Lymphs (auto) 0.62 L, Nucleated RBC % 0, Sodium 141, Potassium 3.6, Chloride 110 H, Carbon Dioxide 26.0, Anion Gap 5, BUN 10, Creatinine 0.90, Estim Creat Clear Calc 77.73, Est GFR (MDRD) Af Amer 107, Est GFR (MDRD) Non-Af 89, BUN/Creatinine Ratio 11.2, Glucose 106, Calcium 9.0, Phosphorus 2.6, Magnesium 1.9, Total Bilirubin 0.50, AST 8 L, ALT 19, Alkaline Phosphatase 54, Total Protein 5.7 L, Albumin 2.2 L, Globulin 3.5, A lbumin/Globulin Ratio 0.6 L, TSH 2.290, Cortisol 8.70 Radiography Diagnostic Testing: Radiology Impression Chest X-Ray 08/28/24 20:30 IMPRESSION: Bibasilar pulmonary opacities which may be atelectasis or pneumonia similar to the prior examination. Electronically Signed: Lobo Martinez DO at 20:51 EDT , Lower Extremity CT 08/29/24 08:22 IMPRESSION: Along the posterior medial midportion of the left thigh, there is evidence of a 3.2 cm x 0.7 cm x 1 cm area of increased markings with overlying skin thickening. A subcentimeter focal area of decreased attenuation is seen suggestive of either necrosis and/or early abscess formation. No air is seen within the collection at this time. Electronically Signed: Harinder Melton MD at 9:21 EDT , Physical Exam Const alert, oriented x3, no apparent distress, average body habitus and well nourished Constitutional Narrative: Older, white male, sitting up in bed, appears comfortable, nontoxic HEENT head/scalp atraumatic and moist oral mucous membranes Head and Scalp: normocephalic Resp normal respiratory effort, no retractions, no use of accessory muscles and clear to auscultation bilaterally Auscultation: Negative for rales, rhonchi or wheezes Cardio regular rate, regular rhythm, S1 normal heart sound, S2 normal heart sound, no murmurs, no rub, no gallops and no clicks GI normal to inspection, nondistended, normoactive bowel sounds, soft to palpation and non-tender Extremity no clubbing, cyanosis or edema Skin Skin Narrative: Left medial thigh wound noted with no significant drainage, mild tenderness with deeper palpation, no significant surrounding erythema Neuro oriented x3, moves all extremities and no focal motor deficits Neuro Narrative: Gait is slightly slowed with decreased step length but stable and base of support is narrow Speech: speech normal Psych affect normal Psych Narrative: Interacts appropriately, answers all questions Assessment & Plan Assessment/Plan (1) History of shingles: (2) Ambulatory dysfunction: (3) Generalized weakness: (4) Frequent falls: (5) Atrial fibrillation with RVR: PLAN: Plan Paroxysmal atrial fibrillation with RVR -Was in RVR on admission -Has converted to normal sinus rhythm independently of any intervention -Diltiazem was discontinued -Beta-rosa maria was increased to 50 mg daily by cardiology -Digoxin was discontinued -Plan is to continue home Eliquis -Cardiology is following-appreciate input Left thigh abscess -CT was reviewed viewed by surgery and they feel that he is likely healing well with no drainable fluid collections -Plan is to continue 24 hours of IV antibiotics and transition to Augmentin for 5 days at discharge with his ongoing prophylactic Bactrim -Wound care is following and suspect will be able to follow if goes to rehab -Blood cultures were obtained and are currently pending Falls/generalized weakness -Worse since he had COVID -Cortisol was normal range for time of day -If persistent may need outpatient Cortrosyn stim test -PT saw the patient and he was able to ambulate considerable distance without any significant gait perturbations -Family would like him to go to rehab after discharge and plan is private pay with rehab ongoing if accepted ILD/antisynthetase syndrome/history of Boop -Continue CellCept -Continue home prednisone -Supplemental oxygen as needed -Reportedly on 3 L continuous however oxygen saturations are 94 on room air -Continue inhalers/aerosols -Restart home Bactrim with chronic immunosuppression History of essential hypertension -Blood pressures are now markedly elevated -There have been alterations in his medications -Continue to monitor Chronic RBBB -Stable History of nephrolithiasis -Status post lithotripsy and stent in 2020 -Stable History of BPH -Previous intolerance to Flomax -Monitor clinically Recent herpes zoster infection -Has completed Valtrex -Now with some neuropathy this been persistent -Continue gabapentin Hyperlipidemia -Continue statin Seasonal allergies -Continue Singulair -Continue as needed cetirizine GERD -Continue home PPI History of gout -No current issues Osteoporosis -Continue Prolia injections when appropriate DVT prophylaxis -Continue Eliquis CODE STATUS -Full code Charges/Coding Visit Charges Inpatient E&M: 64968 Subs Hosp L3
[2024-08-29] MEDS: Acetaminophen 325 MG Tablet 650 MG PO (21:11)
[2024-08-29 21:15] VITALS: BP 115/81; PULSE 107; RESP 18; TEMP 37.2; O2SAT 93
[2024-08-30 03:00] VITALS: BP 117/71; PULSE 62; RESP 18; TEMP 37; O2SAT 96
[2024-08-30 03:49] VITALS: BMI 25.7
[2024-08-30] MEDS: Acyclovir 800 MG Tablet PO ×3 (05:56→13:24)
[2024-08-30] MEDS: Gabapentin 100 MG Capsule PO ×2 (05:56→13:24)
[2024-08-30 06:24] LABS: Magnesium 1.9 mg/dL (1.6-2.6)
--- NOTE | 2024-08-30 08:44 | PN.CARD_ITS ---
Subjective Subjective Patient seen and evaluated. Appears to be doing well. Objective Data Vital Signs: Vital Signs Temp Pulse Resp BP Pulse Ox O2 Del Method 98.6 F 62 18 117/71 96 Room Air 08/30/24 03:00 08/30/24 03:00 08/30/24 03:00 08/30/24 03:00 08/30/24 03:00 08/30/24 08:37 Oxygen Delivery Method [1 ( Room Air Initial Baseline)] Oxygen Delivery Method Room Air Weight: 179 lb 7.3 oz Body Mass Index (BMI) 25.7 Intake & Output: Intake and Output for Last 24 Hours 08/28/24 08/29/24 08/30/24 23:59 23:59 23:59 Intake Total 1000 / 1180 2986.67 / 2986.67 250 / 250 Balance 1000 / 1180 2986.67 / 2986.67 250 / 250 Lab / Micro Data 08/29/24 06:10 08/29/24 06:10 Labs: Laboratory Results - last 24 hr 08/29/24 06:10: Cortisol 8.70 08/30/24 05:21: Phosphorus 3.0, Magnesium 1.9 Cardiology Labs/Tests 08/30/24 05:21: Phosphorus 3.0, Magnesium 1.9 Rhythm: EKG: ECHO: Stress Test: Cardiac Cath: PCI: CT Surgery: Holter monitor: EPS: PPM: CXR: Chest CT Scan: Radiography Diagnostic Testing: Radiology Impression Lower Extremity CT 08/29/24 08:22 IMPRESSION: Along the posterior medial midportion of the left thigh, there is evidence of a 3.2 cm x 0.7 cm x 1 cm area of increased markings with overlying skin thickening. A subcentimeter focal area of decreased attenuation is seen suggestive of either necrosis and/or early abscess formation. No air is seen within the collection at this time. Electronically Signed: Harinder Melton MD at 9:21 EDT , Physical Exam Const alert, oriented x3 and no apparent distress General Appearance: cooperative HEENT hearing grossly normal bilaterally Head and Scalp: atraumatic Eyes EOMs intact bilaterally Neck General: normal visual inspection Chest inspection of chest normal and palpation of chest normal Resp normal respiratory effort Auscultation: clear to auscultation bilaterally Cardio regular rate, regular rhythm, S1 normal heart sound and S2 normal heart sound Jugular Venous Distention: JVD GI normal to inspection, nondistended, normoactive bowel sounds Extremity normal capillary refill and no pedal edema Peripheral Pulses: Yes pulses 2+ throughout and femoral pulses present Skin no rashes or lesions noted Neuro oriented x3 and CN's II-XII intact bilaterally Psych Appearance: grossly normal and appropriate Assessment & Plan Assessment/Plan (1) Atrial fibrillation: QUALIFIERS: Atrial fibrillation type: longstanding persistent Q ualified Code(s): I48.11 - Longstanding persistent atrial fibrillation PLAN: He apparently has a previous history of atrial fibrillation. This is not borne out by his current EKG. My recommendation is that he continue his anticoagulation his echocardiogram demonstrated preserved ejection fraction and I will not make any changes. He is remaining in sinus rhythm at this particular time and no further workup is required momentarily. * With respect to his medication regimen : * Continue the beta-rosa maria to 50 mg daily * (2) RBBB (right bundle branch block): PLAN: He does have a baseline right bundle branch block. I would not recommend that we make any major changes. (3) Essential hypertension: PLAN: His blood pressure appears to be under good control at this time. PLAN: Plan Will sign off for now and follow peripherally.
[2024-08-30 09:00] VITALS: BP 95/55; PULSE 71; RESP 18; TEMP 36.7; O2SAT 94
[2024-08-30] MEDS: Juven (unflavored) Packet 1 PACKET PO (10:01)
[2024-08-30] MEDS: levoFLOXacin IV 750 MG/150 ML BAG 100 MG IV (10:03)
[2024-08-30] MEDS: APIXABAN 5 MG TABLET PO (10:06)
[2024-08-30] MEDS: Cyanocobalamin 500 MCG Tablet PO (10:06)
[2024-08-30] MEDS: Cholecalciferol (VIT D3) 25 MCG TABLET (1,000 UNITS) PO (10:06)
[2024-08-30] MEDS: Zinc Sulfate 50 mg zinc (220 mg) ORAL capsule PO (10:06)
[2024-08-30] MEDS: predniSONE 10 MG Tablet PO (10:06)
[2024-08-30] MEDS: Lactobacillis Acidophilus 1 CAP PO (10:06)
[2024-08-30] MEDS: Pantoprazole Sodium 40 MG Tablet PO (10:07)
[2024-08-30] MEDS: Montelukast 10 MG Tablet PO (10:07)
[2024-08-30] MEDS: Cholecalciferol (Vit D3) 125 MCG CAPSULE (5,000 UNITS) PO (10:07)
[2024-08-30 10:45] VITALS: BP 95/55; PULSE 71
--- NOTE | 2024-08-30 10:51 | CASEMGMT ---
[facility] Rehab can take patient. GRISELDA called patient's and let her know that once patient gets over to the Rehab Unit she will have to go to the belt press operator's office and pay. GRISELDA also notified her that patient will be able to wear regular clothes while on the Rehab Unit. GRISELDA did tell her that it may be a little bit before he is moved over as they are waiting on a patient to discharge from Rehab before patient can go over. GRISELDA went to patient's room to notify him, but he was sleeping. GRISELDA will check back in a little bit. Plan: d/c to [facility] Acute Rehab Unit private pay Sandhya PUENTES
--- NOTE | 2024-08-30 11:06 | PCM.RX.CS ---
Consult Antibiotic Management Pharmacy has been consulted to manage selected antibiotic: Vancomycin Type of Intervention Type of Consult: Follow-up Suspected Infection Suspected Infection: Skin/Soft tissue Prior Doses of Antibiotics Prior Doses of Antibiotics Received/Current Regimen: current dose is vanc 1000mg IV q12h Labs Labs: Sodium 141 mmol/L (136-145) 08/29/24 06:10 Potassium 3.6 mmol/L (3.5-5.1) 08/29/24 06:10 Chloride 110 mmol/L (98-107) H 08/29/24 06:10 Carbon Dioxide 26.0 mmol/L (21.0-32.0) 08/29/24 06:10 Anion Gap 5 (5-15) 08/29/24 06:10 BUN 10 mg/dL (7-18) 08/29/24 06:10 Creatinine 0.90 mg/dL (0.70-1.30) 08/29/24 06:10 Est GFR (MDRD) Af Amer 107 mL/min (>60) 08/29/24 06:10 Est GFR (MDRD) Non-Af 89 mL/min (>60) 08/29/24 06:10 BUN/Creatinine Ratio 11.2 RATIO (10-20) 08/29/24 06:10 Glucose 106 mg/dL (74-106) 08/29/24 06:10 Vancomycin Trough 20.0 ug/mL (5.0-15.0) H 08/30/24 10:15 Dosing Weight Weight used for dosin.4 kg Estimated Creatinine Clearance Estimated Creatinine Clearance: 78ml/min Goal Trough Goal Trough: 15-20 mcg/mL Pharmacy Plan for Drug Dosing Pharmacy Plan for Drug Dosing: The vanc trough drawn at 10:15 today (approx 12 hours after the previous dose) was 20.0. This is within goal range but since it is already at the very top of the range after only a few doses, will decrease next dose to 750mg IV q12h. Repeat a trough before the 4th dose tomorrow night. Pharmacy Service will continue to monitor and adjust dosing as required. Follow-Up Labs Follow-Up Labs: Trough: Vancomycin Date/Time Labs Ordered Labs to be done on [date and time ordered]: 08/31/24 23:00
--- NOTE | 2024-08-30 11:43 | CASEMGMT ---
SW met with patient. SW let patient know that the Acute Rehab Unit is able to take him and he will head over today. SW asked patient if he has been falling at home. Patient said he has not. Patient said has fallen twice this year. Patient said if he gets the shower too hot or if he has not had anything to eat he gets dizzy and lightheaded. SW asked patient if he and his have thought about counseling and patient said no. Patient stated his just panics. Sandhya PUENTES
[2024-08-30] MEDS: Vancomycin HCl 750 MG in 0.9% Normal Saline (250mL Bag) 250 ML 250 MG IV (11:47)
[2024-08-30] MEDS: 0.9% Saline Lock 10 ML Syringe IV (13:19)
[2024-08-30] MEDS: Ondansetron 4 MG/2 ML Vial IV (13:19)
--- NOTE | 2024-08-30 15:14 | DS.PCM_ITS ---
Providers Date of Admission: 08/29/24 Date of Discharge: 08/30/24 Primary Care Physician: Dr. Tanya Pettit, DO Consultations 08/28/24 22:28 Consult: Cardiology Routine Consulting Provider: Sweetie Carlos Reason for Consult: PAF; with RVR EMERGENT Consult: No MD Notified: Yes Date Notified: 08/29/24 Time Notified: 06:51 Method of Notification: Text Method of Consult:: In-Person Consult: Onc/Wound/mortgage closer Routine Comment: Reason for Consult:: Left mid-thigh lesion. 08/29/24 10:11 Consult: General Surgery Routine Consulting Provider: Madeline Dobbs Reason for Consult: medial thigh abscess EMERGENT Consult: No MD Notified: Yes Date Notified: 08/29/24 Time Notified: 10:11 Method of Notification: Verbal Reason For Visit: PAF WITH RVR Diagnosis Discharge Diagnosis (1) Atrial fibrillation: Status: Chronic Code(s): I48.91 - Unspecified atrial fibrillation Qualifiers: Atrial fibrillation type: longstanding persistent Qualified Code(s): I 48.11 - Longstanding persistent atrial fibrillation (2) RBBB (right bundle branch block): Status: Acute Code(s): I45.10 - Unspecified right bundle-branch block (3) Essential hypertension: Status: Chronic Code(s): I10 - Essential (primary) hypertension Medications at Discharge Home Medications cyanocobalamin (vitamin B-12) 500 mcg tablet 500 mcg PO DAILY 07/14/21 denosumab 60 mg/mL subcutaneous syringe (Prolia) 60 mg subcut [id number] low calcuim 07/14/21 pantoprazole 40 mg tablet,delayed release 40 mg PO DAILY 07/14/21 budesonide 0.5 mg/2 mL suspension for nebulization (Pulmicort) 0.5 mg inhalation BID sob 01/01/22 cetirizine 10 mg tablet (Zyrtec) 10 mg PO DAILY PRN allergies 01/01/22 cholecalciferol (vitamin D3) 75 mcg (3,000 unit) tablet 150 mcg PO DAILY 01/01/22 lactobacillus combination no.9 4 billion cell capsule (Adult 50 Plus Probiotic) 4,000 mmu cells PO DAILY 01/01/22 zinc gluconate 30 mg tablet 30 mg PO DAILY supplement 01/01/22 montelukast 10 mg tablet (Singulair) 10 mg PO DAILY 05/12/23 mycophenolate mofetil 500 mg tablet 3,000 mg PO BID AUTOIMMUNE DISEASE 05/12/23 prednisone 1 mg tablet 10 mg PO DAILY 12/09/23 gabapentin 100 mg capsule 100 mg PO TID 08/22/24 apixaban 5 mg tablet (Eliquis) 5 mg PO BID 30 days #60 tabs 08/24/24 levofloxacin 750 mg tablet 750 mg PO DAILY #5 tabs 08/30/24 metoprolol succinate 50 mg tablet,extended release 24 hr 50 mg PO DAILY #0 tabs 08/30/24 sulfamethoxazole 800 mg-trimethoprim 160 mg tablet (Bactrim DS) 1 tab PO .MWF #1 TAB 08/30/24 Hospital Course Procedures EKG and - (Chest x-ray/left lower extremity CT) Summary of Care Provided Minutes Spent on Discharge: 37 Hospital Course: Patient is a 73-year-old white male who presented to the emergency department at [facility] on 08/30/2024 due to generalized debility and falls. In the emergency department he was noted to be in A-fib with RVR. He does have a history of atrial fibrillation. He also was seen as an outpatient by general surgery in early admitted July for a subcutaneous left medial thigh abscess that was drained. Unfortunately cultures were not able to be obtained has been treated with antibiotics. He was concerned that possibly that this infection was lingering as well. He is also had shingles recently as well. His CellCept was held and will continue to be held until he follows up with his primary care physician and he was treated with valacyclovir. Overall he states that he feels that this is improving. He had an admission here from 08/22/2024 through 08/24/2020 for some shortness of breath and possible superimposed cellulitis of his left arm where his shingles has been problematic. 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 He completed the antibiotics at home and his antivirals have been completed as well. He comes back in due to debility and falls. He states he is not falling on a regular basis however I have talked to his primary care physician who indicates that he has been falling more frequently than he is letting on and his states he has been falling a lot. She states he is extremely weak. She is frustrated that he was not admitted at his last hospitalization however he did not qualify to go and after discussion with him by case management about going to rehab as private pay he declined without talking to his . She states at this time he definitely needs to go somewhere to get stronger before coming back home as it has been difficult for her to take care of him. 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 Again, he did well with therapy and was able to ambulate too far to qualify for ongoing rehab however at this point his is insistent that he is discharged to rehab and he is agreeable at this time. With regards to his medial thigh abscess, it appears to be healing however we did get a CT which was reviewed by surgery and they feel that there is nothing to drain and it seems to be doing well. They have recommended 5 more days of oral antibiotics which we will utilize Levaquin due to penicillin allergy and they would like to see him in the office in 1 week. Since he is having some intermittent falls we did check a cortisol level as he is on chronic steroids and his cortisol level was within normal limits for the timing of the day that it was obtained. He was also seen by cardiology for his A-fib with RVR. They recommended discontinuing his diltiazem and transitioning his metoprolol to just 50 mg daily. This will be continued at the time of discharge. Since he has been having falls and possibly his presyncopal episodes, I have ordered an event monitor for him for 30 days at the time of discharge to see if there is any concordance with his heart rate and his episodes. He will be on prophylactic Bactrim for PJP prophylaxis due to ongoing chronic steroid and CellCept use at baseline. He will be going to rehab at discharge for 1 to 2 weeks. I have instructed him to follow-up with his primary care physician within 1 week after discharge and follow-up with cardiology within 1 month after discharge. He is to follow-up with general surgery in 1 week. Discharge diagnoses: Paroxysmal A-fib with RVR-RVR resolved and patient now in sinus rhythm Left thigh abscess-resolving Falls/generalized weakness ILD/antisynthetase syndrome History of Boop Essential hypertension Chronic RBBB History of nephrolithiasis History of BPH Repeat send left upper extremity herpes zoster infection Hyperlipidemia Seasonal allergies GERD History of gout Osteoporosis Physical Exam Const alert, oriented x3, no apparent distress, average body habitus, no limitations and well nourished; Negative for healthy appearing Constitutional Narrative: Older, white male, sitting up in bed, appears comfortable, nontoxic General Appearance: cooperative, comfortable, well kempt and well developed Orientation / Consciousness: awake, oriented to person, oriented to place and oriented to time Exam Limitations: no limitations HEENT normocephalic, head/scalp atraumatic, hearing grossly normal bilaterally and moist oral mucous membranes HEENT Narrative: No thrush, Mallampati 2 Eyes PERRL, EOMs intact bilaterally and conjunctivae normal Eyes Narrative: No scleral icterus Neck no lymphadenopathy and supple Neck Narrative: Trachea midline Resp normal respiratory effort, no retractions, no use of accessory muscles and clear to auscultation bilaterally Resp Narrative: Diminished breath sounds at bases. Auscultation: Negative for rales, rhonchi or wheezes Cardio regular rate, regular rhythm, S1 normal heart sound, S2 normal heart sound, no murmurs, no rub, no gallops and no clicks GI normal to inspection, nondistended, normoactive bowel sounds, soft to palpation and non-tender Extremity no clubbing, cyanosis or edema Skin skin turgor normal and no jaundice Skin Narrative: Left medial thigh wound noted with no significant drainage, mild tenderness with deeper palpation, no significant surrounding erythema Neuro oriented x3, moves all extremities and no focal motor deficits Speech: speech normal Psych affect normal Psych Narrative: Interacts appropriately, answers all questions Medical Records Data Medical Nutrition Assessment Dietitian: Malnutrition Criteria Met Start: 08/29/24 15:53 Freq: Status: Active Protocol: Document 08/29/24 15:53 SB (Rec: 08/29/24 15:53 SB [id number]) Nutrition Malnutrition Evidence of Malnutrition Exists Yes Malnutrition (severe): Acute Illness/Injury Evidenced By Suboptimal Energy Intake ( Severe),Weight Loss (Severe) Intake Problem Increased Nutrient Needs (specify) Etiology protein related to wound healing Signs/Symptoms as evidenced by abscess on left thigh Status Active Problem Inadequate Oral Intake Etiology related to limited food acceptance d/t lack of taste Signs/Symptoms as evidenced by PO meeting ~50 % of estimated nutrition needs , per pt report. Status Active Problem Clinical Problem Acute Disease or Injury Related Malnutrition Etiology severe malnutrition related to inadequate oral intake Signs/Symptoms as evidenced by 5.5% unintentional weight loss x 4 days and PO meeting <75% of estimated energy intake x 2 months.? Status Active Problem Unintended Weight Loss Etiology related to inadequate oral intake Signs/Symptoms as evidenced by 5.5% weight loss x 4 days. Status Active Problem Recommendation Dietitian Recommendations/Changes Continue cardiac/2000 calorie controlled diet to manage current medical conditions. Continue 120ml ensure plus high protein TID with medpass and Shay BID with medpass. Will adjust ONS, as appetite improves. Will monitor weight, as available and assess for malnutrition at time of follow -up. Reviewed and approved by Giorgio Barnes, MS, RDN, LD. Weight / BMI Weight Weight: 81.4 kg Body Mass Index (BMI) 25.7 ABG / Lab / Microbiology Data 08/29/24 06:10 08/29/24 06:10 Laboratory: Laboratory Results - last 24 hr 08/30/24 05:21: Phosphorus 3.0, Magnesium 1.9 08/30/24 10:15: Vancomycin Trough 20.0 H D/C Instructions Discharge Diet: Low fat / Low cholesterol Meaningful Use Info Meaningful Use Meaningful Use Diagnoses (Choose all that apply): None applicable Ischemic Stroke Statin Dosing Therapy Reference: STATIN DOSE THERAPY REFERENCE: * Patients > 75 years receive moderate or high dose statin therapy. * Patients 75 years or YOUNGER should receive HIGH intensity statin dose unless contraindicated. You will be required to document reason for non-treatment if statin daily dose does not meet guidelines. HIGH DOSE STATIN THERAPY DAILY Atorvastatin > than or = to 40 mg Rosuvastatin > than or = to 20 mg Amlodipine + Atorvastatin > than or = to 2.5/40 mg Ezetimibe + Simvastatin 10/80 mg Simvastatin 80mg Discharge Plan Admission Admit Date/Time: 08/29/24 19:06 Primary Reason for Your Visit: weakness Attending Provider: Amelia Quiñonez Primary Care Provider: Tanya Pettit Consulting Providers: Lisandro Plasencia; Mega Pedraza; Noah Luke; Víctor Lan; Amauri De La Cruz; Sharath Leblanc; Shiva Dia; Bora Martinez; Lobo Mills; Bunny Hanson POLLUTION CONTROL CHEMIST; Kristel Joshua NP; Laura Stanley PA; Mo Joel; Madeline Dobbs Discharge Orders/Prescriptions Prescriptions: New metoprolol succinate 50 mg Tablet Extended Release 24 Hr 50 mg PO DAILY Qty: 0 0RF sulfamethoxazole-trimethoprim [Bactrim DS] 800-160 mg tablet 1 tab PO .MWF Qty: 1 0RF Rx Instructions: take every MWF levofloxacin 750 mg tablet 750 mg PO DAILY Qty: 5 0RF Continued pantoprazole 40 mg tablet,delayed release (DR/EC) 40 mg PO DAILY Prolia 60 mg/mL syringe 60 mg subcut [id number] cyanocobalamin (vitamin B-12) 500 mcg tablet 500 mcg PO DAILY zinc gluconate 30 mg tablet 30 mg PO DAILY cholecalciferol (vitamin D3) 75 mcg (3,000 unit) tablet 150 mcg PO DAILY Adult 50 Plus Probiotic 4 billion cell capsule 4,000 mmu cells PO DAILY Rx Instructions: administer with a meal budesonide [Pulmicort] 0.5 mg/2 mL suspension for nebulization 0.5 mg inhalation BID cetirizine [Zyrtec] 10 mg tablet 10 mg PO DAILY PRN (Reason: allergies) prednisone 1 mg tablet 10 mg PO DAILY montelukast [Singulair] 10 mg tablet 10 mg PO DAILY gabapentin 100 mg capsule 100 mg PO TID Eliquis 5 mg Tablet 5 mg PO BID 30 Days Qty: 60 2RF Held mycophenolate mofetil 500 mg tablet 3,000 mg PO BID Hold Instructions: Until you f/u with Dr. Pettit Discontinued cefdinir 300 mg capsule 300 mg PO BID 3 Days Qty: 6 0RF valacyclovir 1 gram tablet 1,000 mg PO TID 1 Days Qty: 0 0RF Rx Instructions: He completes Valtrex on night diltiazem HCl 120 mg capsule,extended release 24hr 120 mg PO DAILY Qty: 90 3RF metoprolol succinate 25 mg tablet extended release 24 hr See Rx Instructions .ROUTE .COMPLEX Qty: 90 3RF Dose Instruction: take 1 tablet orally daily Rx Instructions: take 1 tablet orally daily Other Ambulatory Orders: 30 Day Event Recorder Preventi (Urgent) Timeframe: 1 Day Facility: [facility] - Location: Cardiovascular Services Ordered By: Dr. Amelia Quiñonez Referrals / Follow Up: Tanya Pettit DO [Primary Care Provider] - See Referral Note (1 week after d/c from rehab) Madeline Dobbs PA-C [Med Staff - Adv Practice Prof] - Within 1 Week Víctor Lan MD [Med Staff - Active Staff] - Within 1 Month Disposition Disposition (needs filled in before D/C Order can be placed): Inpatient Rehab Unit/Facility Charges/Coding Visit Charges Inpatient E&M: 63329 Disch Hosp >30min
[2024-08-30 15:29] VITALS: BP 95/55; PULSE 71; RESP 18; TEMP 36.7; O2SAT 94
--- NOTE | 2024-08-30 15:36 | CASEMGMT ---
RN CM NOTE: Readmission review completed and documented in Intervention CM: Readmission Intervention. Eben HILLN RN CM
--- NOTE | 2024-08-30 15:40 | PHA.DC.MR.R ---
Pharmacy [place] Med Reconciliation Pharmacy Service has performed discharge medication reconciliation for this patient. The patient's discharge medication list was reviewed for discrepancies and discrepancies were resolved. Medications at Discharge Home Medications cyanocobalamin (vitamin B-12) 500 mcg tablet 500 mcg PO DAILY vitamin 07/14/21 denosumab 60 mg/mL subcutaneous syringe (Prolia) 60 mg subcut [id number] low calcuim 07/14/21 pantoprazole 40 mg tablet,delayed release 40 mg PO DAILY reflux 07/14/21 budesonide 0.5 mg/2 mL suspension for nebulization (Pulmicort) 0.5 mg inhalation BID sob 01/01/22 cetirizine 10 mg tablet (Zyrtec) 10 mg PO DAILY PRN allergies 01/01/22 cholecalciferol (vitamin D3) 75 mcg (3,000 unit) tablet 150 mcg PO DAILY vitamin 01/01/22 lactobacillus combination no.9 4 billion cell capsule (Adult 50 Plus Probiotic) 4,000 mmu cells PO DAILY supplement 01/01/22 zinc gluconate 30 mg tablet 30 mg PO DAILY supplement 01/01/22 montelukast 10 mg tablet (Singulair) 10 mg PO DAILY allergies 05/12/23 mycophenolate mofetil 500 mg tablet 3,000 mg PO BID AUTOIMMUNE DISEASE 05/12/23 prednisone 1 mg tablet 10 mg PO DAILY inflammation 12/09/23 gabapentin 100 mg capsule 100 mg PO TID nerve pain 08/22/24 apixaban 5 mg tablet (Eliquis) 5 mg PO BID blood thinner 30 days #60 tabs 08/24/24 levofloxacin 750 mg tablet 750 mg PO DAILY #5 tabs 08/30/24 metoprolol succinate 50 mg tablet,extended release 24 hr 50 mg PO DAILY #0 tabs 08/30/24 sulfamethoxazole 800 mg-trimethoprim 160 mg tablet (Bactrim DS) 1 tab PO .MWF #1 TAB 08/30/24
--- NOTE | 2024-08-30 15:45 | NURSING ---
Report called to nurse Marsh for pt to be d/c to Rehab unit.
== END 2024-08-30 16:00 | DRG 308 ==
LOC: ED 21:01 → PCU 08-29 00:05
PROVIDERS: Admitting Provider Internal Medicine; Emergency Provider Emergency Medicine; PCP Internal Medicine; Visit Provider Internal Medicine
DX: I48.11 Longstanding persistent atrial fibrillation (principal); E43 Unspecified severe protein-calorie malnutrition; L02.416 Cutaneous abscess of left lower limb; D89.89 Other specified disorders involving the immune mechanism, not elsewhere classified; J84.89 Other specified interstitial pulmonary diseases; I95.9 Hypotension, unspecified; K76.0 Fatty (change of) liver, not elsewhere classified; I34.81 Nonrheumatic mitral (valve) annulus calcification; I10 Essential (primary) hypertension; J30.2 Other seasonal allergic rhinitis; E78.2 Mixed hyperlipidemia; K21.9 Gastro-esophageal reflux disease without esophagitis; G62.9 Polyneuropathy, unspecified; R62.7 Adult failure to thrive; N40.1 Benign prostatic hyperplasia with lower urinary tract symptoms; R32 Unspecified urinary incontinence; M81.0 Age-related osteoporosis without current pathological fracture; R53.1 Weakness; R53.81 Other malaise; R29.6 Repeated falls; Z79.624 Long term (current) use of inhibitors of nucleotide synthesis; Z99.81 Dependence on supplemental oxygen; Z79.01 Long term (current) use of anticoagulants; Z79.51 Long term (current) use of inhaled steroids; Z79.52 Long term (current) use of systemic steroids; Z79.899 Other long term (current) drug therapy; Z88.0 Allergy status to penicillin; Z68.25 Body mass index [BMI] 25.0-25.9, adult
CPT/HCPCS: 36415; 71045; 73700; 80048; 80053; 80076; 80202; 81001; 82533; 83605; 83735; 83880; 84100; 84443; 84484; 85025; 87040; 93005; 97161; 97166; 97802; 99285; J7030; J7040; J7050; A4216; J2405

== ENCOUNTER 2024-08-30 16:21 | Inpatient (IN) | payer OTHER, MEDICARE, SELFPAY ==
[2024-08-30 16:26] VITALS: BP 113/60; PULSE 98; RESP 17; TEMP 37.2; O2SAT 92; BMI 25.3
[2024-08-30 17:09] VITALS: BP 113/60; PULSE 98; RESP 17; TEMP 37.2; O2SAT 92
[2024-08-30] MEDS: Ensure Plus High Protein 120 ML LIQUID PO (18:04)
[2024-08-30 18:56] VITALS: PULSE 104; RESP 24; O2SAT 91
--- NOTE | 2024-08-30 20:39 | HP.PCM_ITS ---
HPI - General General Date of Admission: 08/30/24 Date of Service: 08/30/24 Chief Complaint: Here for 3 hours daily rehabilitation. [facility] Narrative YARON BUTLER, is a 73 Male who presents with followin08/28/2024 [facility] ED weakness, failure to thrive, left medial thigh wound. History of atrial fibrillation on Eliquis. Incontinent of urine and stool, wears adult diaper. Atrial fibrillation with RVR, hypotensive, cardioverted, but reverted to atrial fibrillation. 500cc IV fluid bolus given for hypotension. 08/28/2024 Admit [facility]. Metoprolol, Diltiazem, Eliquis, Digoxin .25mg iv for atrial fibrillation with RVR. Vancomycin IV for left medial thigh abscess. 08/29/2024 Falls intermittently. Atrial fibrillation converted to normal sinus rhythm. Diltiazem stopped, Metoprolol increased to 50mg daily. Digoxin stopped, continue Eliquis. 24 hours of IV antibiotics, then Augmentin x 5 days, then Bactrim for left thigh abscess. 08/30/2024 Admit to for 3 hours daily rehabilitation, strengthening, prior to discharge home with . Patient private pay. [facility] Medical History (Updated 08/30/24 @ 20:[address] Carlton Joyner MD) Shingles Abscess of left thigh BOOP (bronchiolitis obliterans with organizing pneumonia) Wears glasses High cholesterol Easy bruising Back pain Injury of head and neck Blackout Gastric reflux Non-smoker On home oxygen therapy Hoarseness Chronic cough History of echocardiogram Hypertension History of stress test Cardiology follow-up encounter History of atrial fibrillation Atrial fibrillation COVID-19 Osteoporosis Kidney stones Atrial fibrillation RBBB (right bundle branch block) Antisynthetase syndrome Essential hypertension Mixed hyperlipidemia Asthma Interstitial lung disease GERD (gastroesophageal reflux disease) Fatty liver BPH (benign prostatic hyperplasia) Lung nodule Vasovagal syncope Abnormal cardiac CT angiography Home Medications ?Medication ?Instructions ?Recorded ?Last Taken ?Type cyanocobalamin (vitamin B-12) 500 500 mcg PO DAILY vitamin 07/14/21 Unknown History mcg tablet denosumab 60 mg/mL subcutaneous 60 mg subcut [id number] low calcuim 07/14/21 Unknown History syringe (Prolia) pantoprazole 40 mg tablet,delayed 40 mg PO DAILY reflux 07/14/21 08/30/24 History release budesonide 0.5 mg/2 mL suspension 0.5 mg inhalation BID sob 01/01/22 08/30/24 History for nebulization (Pulmicort) cetirizine 10 mg tablet (Zyrtec) 10 mg PO DAILY PRN allergies 01/01/22 08/30/24 History cholecalciferol (vitamin D3) 75 150 mcg PO DAILY vitamin 01/01/22 08/30/24 History mcg (3,000 unit) tablet lactobacillus combination no.9 4 4,000 mmu cells PO DAILY supplement 01/01/22 08/30/24 History billion cell capsule (Adult 50 Plus Probiotic) zinc gluconate 30 mg tablet 30 mg PO DAILY supplement 01/01/22 08/30/24 History montelukast 10 mg tablet 10 mg PO DAILY allergies 05/12/23 08/30/24 History (Singulair) mycophenolate mofetil 500 mg tablet 3,000 mg PO BID AUTOIMMUNE DISEASE 05/12/23 Unknown History prednisone 1 mg tablet 10 mg PO DAILY inflammation 12/09/23 08/30/24 History gabapentin 100 mg capsule 100 mg PO TID nerve pain 08/22/24 08/30/24 History apixaban 5 mg tablet (Eliquis) 5 mg PO BID blood thinner 30 days 08/24/24 08/30/24 Rx #60 tabs levofloxacin 750 mg tablet 750 mg PO DAILY ATB #5 tabs 08/30/24 Unknown Rx metoprolol succinate 50 mg 50 mg PO DAILY Blood pressure #0 08/30/24 08/30/24 Rx tablet,extended release 24 hr tabs sulfamethoxazole 800 1 tab PO .MWF ATB #1 TAB 08/30/24 Unknown Rx mg-trimethoprim 160 mg tablet (Bactrim DS) Allergy/AdvReac Type Severity Reaction Status Date / Time monosodium glutamate Allergy Abd Verified 08/28/24 16:56 cramps/diarrhea Penicillins (PCN) Allergy Rash Verified 08/28/24 16:56 allopurinol AdvReac Unknown cough Verified 08/28/24 16:56 morphine AdvReac Other Verified 08/28/24 16:56 tamsulosin (From Flomax) AdvReac Other Verified 08/28/24 16:56 Family History Grandfather CVA (cerebral vascular accident) Grandmother Congestive heart failure Grandmother Cardiac pacemaker in situ Mother Heart disease Hypertension Father Heart disease Cardiac arrhythmia Surgical History History of incision and drainage Hx of cystoscopy History of umbilical hernia repair History of inguinal hernia repair Social History household members: spouse Smoking Status: Never smoker alcohol intake: current details: Rare substance use type: does not use caffeine: Yes Type: coffee Number of servings: 1 ROS Constitutional Constitutional: Reports weakness; Denies chills, fever(s) or weight gain ENT HEENT: Denies headache(s), nasal congestion or nasal discharge Cardiovascular Cardiovascular: Denies chest pain or palpitations Respiratory/Chest Respiratory/Chest: Denies cough, excessive phlegm production or shortness of breath with exertion Gastrointestinal Gastrointestinal: Denies abdominal pain, nausea or vomiting Genitourinary Genitourinary: Denies dysuria Musculoskeletal Musculoskeletal: Denies joint pain or joint swelling Integumentary Integumentary: Denies rash or wounds Neurologic Neurologic: Denies focal weakness, numbness or tingling Psychiatric Psychiatric: Denies anxiety, auditory hallucinations, depression, homicidal ideation or suicidal ideation Vital Signs Vital Signs Vital Signs: 08/30/24 16:26 08/30/24 17:09 Temperature 99 F 99 F Temperature Source Temporal Temporal Pulse Rate 98 98 Respiratory Rate 17 17 Blood Pressure 113/60 113/60 Blood Pressure Mean 77 77 Blood Pressure Source Monitor Monitor Blood Pressure Position Semi-Fowlers Semi-Fowlers Blood Pressure Location Left Arm Left Arm Pulse Ox 92 92 Oxygen Delivery Method Room Air Room Air Weight Weight: 80.2 kg Body Mass Index (BMI) 25.3 Indicators for Scoring Admitted with or Primary Diagnosis of CVA/Stroke: No Hx of CVA/Stroke: No Physical Exam Const alert General Appearance: cooperative HEENT normocephalic Eyes PERRL and EOMs intact bilaterally Neck supple, no JVD and no carotid bruits Resp normal respiratory effort, normal air movement and clear to auscultation bilaterally Cardio regular rate and regular rhythm GI normal to inspection, nondistended, normoactive bowel sounds, non-tender and non-distended Extremity normal capillary refill General Extremity: Negative for edema Skin no rashes or lesions noted General Skin Exam: no breakdown Psych affect normal Appearance: appropriate Assessment & Plan Assessment/Plan (1) Debility: (2) Atrial fibrillation with RVR: (3) Hypotension: (4) Acute hypotension: (5) Abscess of left thigh: (6) Antisynthetase syndrome: (7) Shingles: (8) Osteoporosis: (9) Interstitial lung disease: (10) GERD (gastroesophageal reflux disease): (11) Neuropathic pain: PLAN: Plan 73 year old male with below past medical history hospitalized for atrial fibrillation with rapid ventricular response, hypotension, complicated by left thigh abscess, admitted to TCU with debility, here for rehabilitation, strengthening, prior to discharge home with . * Debility - PT/OT. * Pain - Tylenol 650mg q6 prn. * Bowel - senna/colace 2 tablets bid, Dulcolax 10mg pr x 1 prn, MOM 30ml po x1 prn. * DVT prophylaxis - Eliquis. * Atrial fibrillation - Metoprolol succinate 50mg daily, Eliquis 5mg bid. * ILD/Antisynthetase syndrome - Budesonide 0.5mg inhaled bid, Singulair 10mg daily, Prednisone 10mg daily, Bactrim DS MWF PJP prophylaxis. * Vitamin D deficiency - D3 125mcg daily. * Vitamin B12 deficiency - B12 500mcg daily. * Nutrition - Ensure Plus 120ml tidcm, Juven1 packet bidcm. * Neuropathic pain - Gabapentin 100mg tid. * GI prophylaxis - Lactobacillus 1 tablet daily * Left thigh abscess - Levaquin 750mg daily thru 09/04/2024. * Allergic rhinitis - Loratadine 10mg daily prn. * GERD - Pantoprazole 40mg daily. * Zinc deficiency - Zinc Sulfate 50mg daily.
[2024-08-30] MEDS: Gabapentin 100 MG Capsule PO (22:12)
[2024-08-30] MEDS: APIXABAN 5 MG TABLET PO (22:12)
[2024-08-31] MEDS: Gabapentin 100 MG Capsule PO ×3 (05:39→21:47)
[2024-08-31 06:00] VITALS: BP 113/70; PULSE 86; RESP 17; TEMP 36.8; O2SAT 96
[2024-08-31 06:20] LABS: Absolute Lymphocyte Count 1.06 X10^3/uL (0.83-4.51); Absolute Neutrophil Count 13.6 X10^3/uL (2.0-7.7); Basophil# 0.11 X10^3/uL; Basophil% 0.7 % (0-1); Eosinophil# 0.15 X10^3/uL; Eosinophils% 0.9 % (0-5); Hematocrit 47.7 % (40-54); Hemoglobin 14.7 g/dL (13.0-16.5); Lymphocyte # 1.06 X10^3/ul (0.83-4.51); Lymphocyte % 6.5 % (19-41); Mean Corp Hgb Conc 30.8 g/dL (32-36); Mean Corpuscular Volume 94.1 fL (80-94); Mean Platelet Vol. 8.6 fl (6.2-12.0); Monocyte# 1.14 X10^3/uL; NRBC Flagged by Analyzer 0 % (0-5); Neutrophil # 13.58 X10^3/uL (2.7-7.7); Neutrophil % 83.7 % (47-70); Platelet Count 493 K/mm3 (150-450); RBC Distribution Width CV 15.2 % (11.6-14.6); RBC Distribution Width SD 51.2 fl (35.1-43.9); Red Blood Count 5.07 M/mm3 (4.6-6.2); White Blood Count 16.2 K/mm3 (4.4-11.0)
[2024-08-31 07:14] LABS: ALB/GLOB Ratio 0.6 RATIO (0.9-2.4); AST(SGOT) 15 U/L (15-37); Alanine Aminotransfer ALT/SGPT 23 U/L (16-61); Albumin, Serum 2.7 g/dL (3.2-5.0); Alkaline Phosphatase 67 U/L (45-117); Anion Gap 7 (5-15); BUN 14 mg/dL (7-18); BUN/Creat Ratio 12.1 RATIO (10-20); Calcium,Total 10.3 mg/dL (8.5-10.1); Chloride 102 mmol/L (98-107); Creatinine, Serum 1.16 mg/dL (0.70-1.30); EST Glomerular Filtration Rate 66 mL/min (>60); Est Glom Filt Rate - Afr Amer 80 mL/min (>60); Estimated Creatinine Clearance 60.31 ml/min; Globulin 4.6 g/dL (2.2-4.2); Glucose 92 mg/dL (74-106); Phosphorus 3.5 mg/dL (2.5-4.9); Potassium 3.9 mmol/L (3.5-5.1); Protein, Total 7.3 g/dL (6.4-8.2); Sodium Level 135 mmol/L (136-145)
[2024-08-31] MEDS: Budesonide Respules 0.5 MG/2 ML AMPUL.NEB. INHALATION ×2 (08:01→19:13)
[2024-08-31 08:02] VITALS: PULSE 91; RESP 16; O2SAT 93
[2024-08-31] MEDS: Pantoprazole Sodium 40 MG Tablet PO (08:07)
[2024-08-31 08:08] VITALS: PULSE 91
[2024-08-31] MEDS: Zinc Sulfate 50 mg zinc (220 mg) ORAL capsule PO (08:08)
[2024-08-31] MEDS: APIXABAN 5 MG TABLET PO ×2 (08:08→21:47)
[2024-08-31] MEDS: Montelukast 10 MG Tablet PO (08:08)
[2024-08-31] MEDS: Juven (unflavored) Packet 1 PACKET PO ×2 (08:08→17:43)
[2024-08-31] MEDS: Cyanocobalamin 500 MCG Tablet PO (08:08)
[2024-08-31] MEDS: Metoprolol(XL)Succ 50 MG Tablet PO (08:08)
[2024-08-31] MEDS: levoFLOXacin 750 MG Tablet PO (08:08)
[2024-08-31] MEDS: predniSONE 10 MG Tablet PO (08:08)
[2024-08-31] MEDS: Lactobacillis Acidophilus 1 CAP PO (08:09)
[2024-08-31] MEDS: Ensure Plus High Protein 120 ML LIQUID PO ×2 (08:09→12:11)
[2024-08-31] MEDS: Cholecalciferol (Vit D3) 125 MCG CAPSULE (5,000 UNITS) PO (08:09)
[2024-08-31] MEDS: FLU VACCINE **HIGH DOSE** TV 24-25 180 MCG/0.5 ML SYRINGE IM (12:11)
--- NOTE | 2024-08-31 13:51 | CASEMGMT ---
Social Work SW requested for to provide copies of pt's advanced directives. Susanna Marcum, STORE CLERK [employer]CHO[employer] TUTOR
--- NOTE | 2024-08-31 14:02 | PCM.RU.PYE ---
Admission Information Primary Diagnosis:: Atrial fibrillation, hypotension, left thigh abscess. Status Changes from Prescreening?: No changes Identified Actual Problem List:: Falls, Skin Intergrity, Pain, ALteration in Cmfrt, Mobility Impaired, Self Care Deficit, Ineffective Communication, Know.Dfct/Disease Process and Alteration-Leisure Activ. Potential Problem List:: DVT, Bleeding, Infection, UTI, Aspiration, Falls, Skin Integrity and Depression Risk of Complications DVT: ANITA Hose Bleeding: Monitor Lab Values, Nursing to Teach Precautions for anti-coagulation therapy., Wound, if applicable, to be assessed every shift. and Stroke patients assessed for lethargy or change in status. Infection: Clinical Staff to Monitor for S/S of infection: and S/S of infection include fever, redness, warmth, etc. Urinary Tract Infection: Monitor for frequency, burning, discomfort, or incontinence. and Nursing will obtain urine sample for urinalysis and C&S when ordered. Aspiration: Clinical staff will monitor for coughing, drooling, congestion., Speech will evaluate swallowing and dsyphasia. and Nursing will monitor patient swallowing during meals. Falls: Patient will be evaluated for Fall Precautions and Patient will be placed on Fall Precautions as indicated per protocol. Skin Breakdown: Nursing will assess skin daily using assessment tool. and Nursing will place on Skin Breakdown Precautions as indicated. Pain: Clinical staff will assess patient's pain level per protocol., Medications will be given, if needed, and the pain level reassessed. and Other methods: Massage, distraction, decrease stimulus, etc. used PRN. Plan of Care Patient requires physician specializing in physical medicine and rehab oversight to provide close medical supervision of rehab issues including: Pain Management, Sleep Problems, Bowel and Bladder, Medical and co-morbidity Management, DVT prophylaxis, Rehabilitation Leadership and Coordination of treatment team Patient needs Physical Therapy: At least 5 out of 7 days and For a minimum of 1.5 hrs Patient needs Physical Therapy to improve:: Mobility, Strengthening, Transfers, Stretching, ROM, Endurance, Stairs, Gait and Balance Patient needs Occupational Therapy: At least 5 out of 7 days and For a minimum of 1.5 hrs Patient needs Occupational Therapy to improve ADL's incl.: Eating, Grooming, Bathing, Dressing, Toileting, Toilet transfers, Community Reintegration, Higher functioning activities, Household tasks, Adaptive Equipment, Splinting and Other activities as determined Patient requires 24/ Rehabilitation Nursing for: Pain Issues, Identifying and preventing risk factors, Monitoring and reporting current medical conditions, Assisting with ambulation, transfer, and all ADL's, Teaching patients about disease process and medications, Family teaching, Providing safe environment, Bowel and Bladder Issues, Skin integrity and Medication Management Patient needs Youth Development Specialist/ Case Management for: Discharge Planning, Arranging Home Equipment or Services and Family Interventions Patient needs Dietary and Nutrition Services for: Adequate Nutrition, Nutritional Supplements and Nutritional Education Goals Goals Patient will remain: free from falls and or injury at time of discharge. Patient will ambulate: with MOD I assist Patient will complete upper body dressing at: MOD I level of assist. Patient will complete lower body dressing at: MOD I level of assist. (with AE.) Patient will complete toilet transfer at: MOD I level of assist. Patient will complete toileting at: MOD I level of assist. Patient will perform bathing at: MOD I level of assist. Patient will perform Tub/Shower transfer at: MOD I level of assist. Patient will complete grooming at: MOD I level of assist. Patient will complete home management skills at: MOD I level of assist. Patient's skin will: remain intact and free from infection. Patient will receive: adequate nutrition. Discharge Planning Pt Prognosis for Sig. Practical Improv. w/in Reasonable Time: Good Estimated Length of stay (days): 10 Anticipated D/C Destination: Home with Outpt Therapy Was Preadmission Assessment Accurate?: Yes
[2024-08-31 18:00] VITALS: BP 98/61; PULSE 98; RESP 18; TEMP 36.3; O2SAT 93
[2024-08-31 19:13] VITALS: PULSE 90; RESP 16
[2024-08-31 21:30] VITALS: PULSE 98; O2SAT 93
[2024-08-31] MEDS: Arthritis Pain Compound 60 CLICK TUBE TOPICAL (21:47)
[2024-09-01] VITALS (7 sets, daily range): BP systolic 103–108; BP diastolic 41–48; PULSE 80–83; RESP 15–18; TEMP 36.6–37.3; O2SAT 93–97
--- NOTE | 2024-09-01 01:18 | NURSING ---
Reviewed and agree with Mayo HODGES, documentation and assessment charting.
[2024-09-01 05:08] LABS: Absolute Lymphocyte Count 0.65 X10^3/uL (0.83-4.51); Absolute Neutrophil Count 10.2 X10^3/uL (2.0-7.7); Basophil# 0.07 X10^3/uL; Basophil% 0.6 % (0-1); Eosinophil# 0.05 X10^3/uL; Eosinophils% 0.4 % (0-5); Hematocrit 41.6 % (40-54); Hemoglobin 12.9 g/dL (13.0-16.5); Lymphocyte # 0.65 X10^3/ul (0.83-4.51); Lymphocyte % 5.3 % (19-41); Mean Corpuscular Hgb 28.9 pg (27.0-32.0); Mean Corpuscular Volume 93.1 fL (80-94); Mean Platelet Vol. 8.5 fl (6.2-12.0); Monocyte# 1.14 X10^3/uL; Monocyte% 9.2 % (0-10); NRBC Flagged by Analyzer 0 % (0-5); Neutrophil # 10.24 X10^3/uL (2.7-7.7); Platelet Count 428 K/mm3 (150-450); RBC Distribution Width CV 15.4 % (11.6-14.6); RBC Distribution Width SD 51.4 fl (35.1-43.9); Red Blood Count 4.47 M/mm3 (4.6-6.2); White Blood Count 12.3 K/mm3 (4.4-11.0)
[2024-09-01] MEDS: Gabapentin 100 MG Capsule PO (06:37)
[2024-09-01] MEDS: Arthritis Pain Compound 60 CLICK TUBE TOPICAL ×2 (06:38→21:14)
[2024-09-01] MEDS: Budesonide Respules 0.5 MG/2 ML AMPUL.NEB. INHALATION ×2 (07:50→20:07)
--- NOTE | 2024-09-01 08:02 | PN.REHAB_ITS ---
Subjective Subjective Patient seen, examined. He is having left hand paresthetic pain from post herpetic neuralgia. The pain bothers him and is not well controlled. He is otherwise doing well. Objective Data Objective Data Vital Signs: Vital Signs Temp Pulse Resp BP Pulse Ox O2 Del Method 99.1 F 83 16 108/48 L 93 Room Air 09/01/24 06:00 09/01/24 06:00 09/01/24 06:00 09/01/24 06:00 09/01/24 06:00 09/01/24 06:00 Oxygen Delivery Method Room Air Weight: 80.2 kg Body Mass Index (BMI) 25.3 Intake & Output: Intake and Output for Last 24 Hours 08/30/24 08/31/24 09/01/24 23:59 23:59 23:59 Intake Total 240 / 240 1320 / 1320 60 / 60 Output Total 350 / 350 800 / 800 Balance -110 / -110 520 / 520 60 / 60 Medical Nutrition Assessment Dietitian: Malnutrition Criteria Met Start: 08/31/24 15:18 Freq: Status: Active Protocol: Document 08/31/24 15:18 SB (Rec: 08/31/24 15:18 SB [id number]) Nutrition Malnutrition Evidence of Malnutrition Exists Yes Malnutrition (severe): Acute Illness/Injury Evidenced By Suboptimal Energy Intake ( Severe),Weight Loss (Severe) Intake Problem Increased Nutrient Needs (specify) Etiology protein related to wound healing Signs/Symptoms as evidenced by boil on left inner thigh. Status Active Problem Clinical Problem Acute Disease or Injury Related Malnutrition Etiology severe malnutrition related to inadequate oral intake Signs/Symptoms as evidenced by 3% unintentional weight loss x 1 week and meeting <75% of estimated energy intake x 2 months. Status Active Problem Recommendation Dietitian Recommendations/Changes Continue liberal regular diet d/t signs and symptoms of malnutrition. Continue 120ml ensure plus high protein TID with medpass and Shay BID with medpass. Will adjust diet to cardiac diet, as appetite improves. Will adjust ONS, as appetite improves. Will monitor weight, as available. Reviewed and approved by Aniyah Powell, JAIRON, LD. Lab / Micro Data 09/01/24 04:55 08/31/24 06:15 Labs: Laboratory Results - last 24 hr 09/01/24 04:55: WBC 12.3 H, RBC 4.47 L, Hgb 12.9 L, Hct 41.6, MCV 93.1, MCH 28.9, MCHC 31.0 L, RDW Std Deviation 51.4 H, RDW Coeff of Opal 15.4 H, Plt Count 428, MPV 8.5, Immature Gran % (Auto) 1.500 H, Neut % (Auto) 83.0 H, Lymph % (Auto) 5.3 L, Preston % (Auto) 9.2, Eos % (Auto) 0.4, Baso % (Auto) 0.6, Absolute Neuts (auto) 10.2 H, Absolute Lymphs (auto) 0.65 L, Nucleated RBC % 0 Indicators for Scoring Admitted with or Primary Diagnosis of CVA/Stroke: No Hx of CVA/Stroke: No Physical Exam Const alert General Appearance: cooperative HEENT normocephalic Eyes PERRL and EOMs intact bilaterally Neck supple, no JVD and no carotid bruits Resp normal respiratory effort, normal air movement and clear to auscultation bilaterally Cardio regular rate and regular rhythm GI normal to inspection, nondistended, normoactive bowel sounds, non-tender and non-distended Extremity normal capillary refill General Extremity: Negative for edema Skin no rashes or lesions noted General Skin Exam: no breakdown Psych affect normal Appearance: appropriate Assessment & Plan Assessment/Plan (1) Debility: (2) Atrial fibrillation with RVR: (3) Hypotension: (4) Acute hypotension: (5) Abscess of left thigh: (6) Antisynthetase syndrome: (7) Shingles: (8) Osteoporosis: (9) Interstitial lung disease: (10) GERD (gastroesophageal reflux disease): (11) Neuropathic pain: PLAN: Plan 73 year old male with below past medical history hospitalized for atrial fibrillation with rapid ventricular response, hypotension, complicated by left thigh abscess, admitted to TCU with debility, here for rehabilitation, strengthening, prior to discharge home with . * Debility - PT/OT. * Pain - Tylenol 650mg q6 prn. * Bowel - senna/colace 2 tablets bid, Dulcolax 10mg pr x 1 prn, MOM 30ml po x1 prn. * DVT prophylaxis - Eliquis. * Atrial fibrillation - Metoprolol succinate 50mg daily, Eliquis 5mg bid. * ILD/Antisynthetase syndrome - Budesonide 0.5mg inhaled bid, Singulair 10mg daily, Prednisone 10mg daily, Bactrim DS MWF PJP prophylaxis. * Vitamin D deficiency - D3 125mcg daily. * Vitamin B12 deficiency - B12 500mcg daily. * Nutrition - Ensure Plus 120ml tidcm, Juven1 packet bidcm. * Post Herpetic neuralgia (Left hand) - Increase Gabapentin 200mg tid. * GI prophylaxis - Lactobacillus 1 tablet daily * Left thigh abscess - Levaquin 750mg daily thru 09/04/2024. * Allergic rhinitis - Loratadine 10mg daily prn. * GERD - Pantoprazole 40mg daily. * Zinc deficiency - Zinc Sulfate 50mg daily.
[2024-09-01] MEDS: Juven (unflavored) Packet 1 PACKET PO ×2 (08:10→17:05)
[2024-09-01] MEDS: APIXABAN 5 MG TABLET PO ×2 (08:11→21:14)
[2024-09-01] MEDS: Pantoprazole Sodium 40 MG Tablet PO (08:11)
[2024-09-01] MEDS: predniSONE 10 MG Tablet PO (08:11)
[2024-09-01] MEDS: Metoprolol(XL)Succ 50 MG Tablet PO (08:11)
[2024-09-01] MEDS: Cholecalciferol (Vit D3) 125 MCG CAPSULE (5,000 UNITS) PO (08:12)
[2024-09-01] MEDS: Montelukast 10 MG Tablet PO (08:12)
[2024-09-01] MEDS: levoFLOXacin 750 MG Tablet PO (08:12)
[2024-09-01] MEDS: Zinc Sulfate 50 mg zinc (220 mg) ORAL capsule PO (08:12)
[2024-09-01] MEDS: Lactobacillis Acidophilus 1 CAP PO (08:12)
[2024-09-01] MEDS: Cyanocobalamin 500 MCG Tablet PO (08:12)
[2024-09-01] MEDS: Smz/Tmp Ds Tablet 1 TABLET PO (08:12)
[2024-09-01] MEDS: Gabapentin 100 MG Capsule 200 MG PO ×2 (13:18→21:14)
--- NOTE | 2024-09-01 14:10 | CHAPLAIN ---
Type of Pastoral Visit _x__ Initial Visit ___ Follow-up Visit ___ On-call Visit ___ General Patient Visit ___ Spiritual Assessment ___ Family Conference ___ Bereavement ___ Rapid Response ___ Code Blue ___ Other (describe below) Pastoral Care Referral From _x__ Patient ___ Family ___ Nurse ___ Physician ___ Machine Welder ___ Spooling Machine Operator ___ Other (describe below) Sacrament/Intervention _x__ Active listening ___ Anointing ___ Taoist ___ Bereavement ___ Communion ___ Luli exploration ___ _x__ Life review ___ Prayer ___ Reconciliation ___ Sacrament of Sick _x__ Supportive presence ___ Wedding ___ Other (describe below) Pastoral Comments time to get acquainted and learn about life and work of this patient; pt states that I am dealing with a lot right now - knee, shingles, and boil; pt has family support and 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
[2024-09-01] MEDS: 0.9% Saline Lock 10 ML Syringe IV (15:16)
[2024-09-02 06:00] VITALS: BP 110/44; PULSE 66; RESP 14; TEMP 37.4; O2SAT 91
[2024-09-02] MEDS: Gabapentin 100 MG Capsule 200 MG PO ×3 (06:31→21:20)
[2024-09-02] MEDS: Arthritis Pain Compound 60 CLICK TUBE TOPICAL ×2 (06:31→21:20)
[2024-09-02] MEDS: Juven (unflavored) Packet 1 PACKET PO ×2 (08:04)
[2024-09-02] MEDS: APIXABAN 5 MG TABLET PO ×2 (08:04→21:21)
[2024-09-02] MEDS: levoFLOXacin 750 MG Tablet PO (08:04)
[2024-09-02 08:05] VITALS: PULSE 66
[2024-09-02] MEDS: Pantoprazole Sodium 40 MG Tablet PO (08:05)
[2024-09-02] MEDS: Zinc Sulfate 50 mg zinc (220 mg) ORAL capsule PO (08:05)
[2024-09-02] MEDS: Metoprolol(XL)Succ 50 MG Tablet PO (08:05)
[2024-09-02] MEDS: Cyanocobalamin 500 MCG Tablet PO (08:05)
[2024-09-02] MEDS: Lactobacillis Acidophilus 1 CAP PO (08:05)
[2024-09-02] MEDS: predniSONE 10 MG Tablet PO (08:06)
[2024-09-02] MEDS: Cholecalciferol (Vit D3) 125 MCG CAPSULE (5,000 UNITS) PO (08:06)
[2024-09-02] MEDS: Montelukast 10 MG Tablet PO (08:06)
[2024-09-02 13:54] VITALS: BMI 25.3
[2024-09-02 17:27] VITALS: BP 84/59; PULSE 91; RESP 16; TEMP 36.9; O2SAT 93
[2024-09-02] MEDS: Ensure Plus High Protein 120 ML LIQUID PO (18:00)
[2024-09-02 19:56] VITALS: PULSE 81; RESP 16
[2024-09-02] MEDS: Budesonide Respules 0.5 MG/2 ML AMPUL.NEB. INHALATION (19:56)
[2024-09-03 06:00] VITALS: BP 104/56; PULSE 86; RESP 18; TEMP 37.6; O2SAT 91
[2024-09-03] MEDS: Gabapentin 100 MG Capsule 200 MG PO ×3 (06:19→21:58)
[2024-09-03] MEDS: Arthritis Pain Compound 60 CLICK TUBE TOPICAL ×2 (06:20→21:59)
[2024-09-03] MEDS: Ensure Plus High Protein 120 ML LIQUID PO ×3 (07:36→15:50)
[2024-09-03] MEDS: Zinc Sulfate 50 mg zinc (220 mg) ORAL capsule PO (07:37)
[2024-09-03] MEDS: Pantoprazole Sodium 40 MG Tablet PO (07:37)
[2024-09-03] MEDS: APIXABAN 5 MG TABLET PO ×2 (07:37→21:59)
[2024-09-03] MEDS: Lactobacillis Acidophilus 1 CAP PO (07:37)
[2024-09-03] MEDS: Cholecalciferol (Vit D3) 125 MCG CAPSULE (5,000 UNITS) PO (07:37)
[2024-09-03] MEDS: levoFLOXacin 750 MG Tablet PO (07:37)
[2024-09-03] MEDS: Montelukast 10 MG Tablet PO (07:37)
[2024-09-03] MEDS: predniSONE 10 MG Tablet PO (07:37)
[2024-09-03 07:38] VITALS: PULSE 86
[2024-09-03] MEDS: Metoprolol(XL)Succ 50 MG Tablet PO (07:38)
[2024-09-03] MEDS: Cyanocobalamin 500 MCG Tablet PO (07:38)
[2024-09-03 09:12] VITALS: PULSE 80; RESP 16
[2024-09-03] MEDS: Budesonide Respules 0.5 MG/2 ML AMPUL.NEB. INHALATION ×2 (09:12→19:22)
[2024-09-03 17:46] VITALS: BP 93/43; PULSE 78; RESP 18; TEMP 37.4; O2SAT 93
[2024-09-03 19:22] VITALS: PULSE 90; RESP 20
[2024-09-04] VITALS (8 sets, daily range): BP systolic 98–107; BP diastolic 54–62; PULSE 77–91; RESP 15–20; TEMP 36.7–37.3; O2SAT 88–95
[2024-09-04] MEDS: Arthritis Pain Compound 60 CLICK TUBE TOPICAL ×2 (06:07→21:21)
[2024-09-04] MEDS: Gabapentin 100 MG Capsule 200 MG PO ×3 (06:08→21:21)
[2024-09-04] MEDS: Budesonide Respules 0.5 MG/2 ML AMPUL.NEB. INHALATION ×2 (06:14→21:45)
--- NOTE | 2024-09-04 06:24 | NURSING ---
Respiratory therapy here for breathing treatment. Noted SpO2 87% on room air after ambulating to and from restroom. Walked around unit X1 - Pt maintains at 87%. Returned to bed and placed 1 LPM NC. Pt resting comfortably and now 95% on 1 LPM NC.
[2024-09-04] MEDS: Lactobacillis Acidophilus 1 CAP PO (08:01)
[2024-09-04] MEDS: Smz/Tmp Ds Tablet 1 TABLET PO (08:01)
[2024-09-04] MEDS: Metoprolol(XL)Succ 50 MG Tablet PO (08:01)
[2024-09-04] MEDS: Cyanocobalamin 500 MCG Tablet PO (08:01)
[2024-09-04] MEDS: Pantoprazole Sodium 40 MG Tablet PO (08:01)
[2024-09-04] MEDS: predniSONE 10 MG Tablet PO (08:01)
[2024-09-04] MEDS: Zinc Sulfate 50 mg zinc (220 mg) ORAL capsule PO (08:01)
[2024-09-04] MEDS: Montelukast 10 MG Tablet PO (08:01)
[2024-09-04] MEDS: levoFLOXacin 750 MG Tablet PO (08:02)
[2024-09-04] MEDS: Cholecalciferol (Vit D3) 125 MCG CAPSULE (5,000 UNITS) PO (08:02)
[2024-09-04] MEDS: APIXABAN 5 MG TABLET PO ×2 (08:02→21:21)
[2024-09-04] MEDS: Ensure Plus High Protein 120 ML LIQUID PO ×2 (08:10→12:54)
--- NOTE | 2024-09-04 08:25 | CASEMGMT ---
Addendum entered by Susanna Marcum 09/04/24 15:29: was updated that insurance approved precert with retro auth 08/30- NRD 09/06 Original Note: Social Work IDT met with patient and for Team meeting. Discussed patient's progress in PT/OT/SN. Patient admitted self-pay, however, d/t therapy sessions, pt has shown significant deficits to his baseline and precert was submitted to insurance for retro auth on 09/01. SW will await outcome and notify pt/. If insurance denies, will provide another 7 days of payment due on 09/06. Will ReTeam next week. SW will continue to follow. Susanna Marcum, DELMER HULLW
--- NOTE | 2024-09-04 08:38 | PN.REHAB_ITS ---
Subjective Subjective Patient seen on Team rounds. His was present. He is requiring moderate assistance in therapy at times. Documentation resubmitted to insurance to cover his stay, as he is self pay. Objective Data Objective Data Vital Signs: Vital Signs Temp Pulse Resp BP Pulse Ox O2 Del Method O2 Flow Rate 98.1 F 91 16 107/62 95 Nasal Cannula 1 09/04/24 06:23 09/04/24 08:01 09/04/24 06:23 09/04/24 06:23 09/04/24 06:33 09/04/24 06:33 09/04/24 06:33 Oxygen Flow Rate (L/min) 1 Oxygen Delivery Method Nasal Cannula Weight: 80.286 kg Body Mass Index (BMI) 25.3 Intake & Output: Intake and Output for Last 24 Hours 09/02/24 09/03/24 09/04/24 23:59 23:59 23:59 Intake Total 740 / 1090 1090 / 1090 320 / 320 Output Total 300 / 300 675 / 675 300 / 300 Balance 440 / 790 415 / 415 20 / 20 Medical Nutrition Assessment Dietitian: Malnutrition Criteria Met Start: 08/31/24 15:18 Freq: Status: Active Protocol: Document 08/31/24 15:18 SB (Rec: 08/31/24 15:18 SB [id number]) Nutrition Malnutrition Evidence of Malnutrition Exists Yes Malnutrition (severe): Acute Illness/Injury Evidenced By Suboptimal Energy Intake ( Severe),Weight Loss (Severe) Intake Problem Increased Nutrient Needs (specify) Etiology protein related to wound healing Signs/Symptoms as evidenced by boil on left inner thigh. Status Active Problem Clinical Problem Acute Disease or Injury Related Malnutrition Etiology severe malnutrition related to inadequate oral intake Signs/Symptoms as evidenced by 3% unintentional weight loss x 1 week and meeting <75% of estimated energy intake x 2 months. Status Active Problem Recommendation Dietitian Recommendations/Changes Continue liberal regular diet d/t signs and symptoms of malnutrition. Continue 120ml ensure plus high protein TID with medpass and Shay BID with medpass. Will adjust diet to cardiac diet, as appetite improves. Will adjust ONS, as appetite improves. Will monitor weight, as available. Reviewed and approved by Aniyah Powell, JAIRON, LD. Lab / Micro Data 09/01/24 04:55 08/31/24 06:15 Indicators for Scoring Admitted with or Primary Diagnosis of CVA/Stroke: No Hx of CVA/Stroke: No Physical Exam Const alert General Appearance: cooperative HEENT normocephalic Eyes PERRL and EOMs intact bilaterally Neck supple, no JVD and no carotid bruits Resp normal respiratory effort, normal air movement and clear to auscultation bilaterally Cardio regular rate and regular rhythm GI normal to inspection, nondistended, normoactive bowel sounds, non-tender and non-distended Extremity normal capillary refill General Extremity: Negative for edema Skin no rashes or lesions noted General Skin Exam: no breakdown Psych affect normal Appearance: appropriate Assessment & Plan Assessment/Plan (1) Debility: (2) Atrial fibrillation with RVR: (3) Hypotension: (4) Acute hypotension: (5) Abscess of left thigh: (6) Antisynthetase syndrome: (7) Shingles: (8) Osteoporosis: (9) Interstitial lung disease: (10) GERD (gastroesophageal reflux disease): (11) Neuropathic pain: PLAN: Plan 73 year old male with below past medical history hospitalized for atrial fibrillation with rapid ventricular response, hypotension, complicated by left thigh abscess, admitted to TCU with debility, here for rehabilitation, strengthening, prior to discharge home with . * Debility - PT/OT. * Pain - Tylenol 650mg q6 prn. * Bowel - senna/colace 2 tablets bid, Dulcolax 10mg pr x 1 prn, MOM 30ml po x1 prn. * DVT prophylaxis - Eliquis. * Atrial fibrillation - Metoprolol succinate 50mg daily, Eliquis 5mg bid. * ILD/Antisynthetase syndrome - Budesonide 0.5mg inhaled bid, Singulair 10mg daily, Prednisone 10mg daily, Bactrim DS MWF PJP prophylaxis. * Vitamin D deficiency - D3 125mcg daily. * Vitamin B12 deficiency - B12 500mcg daily. * Nutrition - Ensure Plus 120ml tidcm, Juven1 packet bidcm. * Post Herpetic neuralgia (Left hand) - Gabapentin 200mg tid. * GI prophylaxis - Lactobacillus 1 tablet daily * Left thigh abscess - Wound nurse following. * Allergic rhinitis - Loratadine 10mg daily prn. * GERD - Pantoprazole 40mg daily. * Zinc deficiency - Zinc Sulfate 50mg daily.
[2024-09-04] MEDS: Acetaminophen 325 MG Tablet 650 MG PO (11:46)
--- NOTE | 2024-09-04 18:08 | NURSING ---
Patient weaned off of 1LNC today, saturating at 94% all day on room air, lowest SPO2 has been is 92%.
[2024-09-05] MEDS: Arthritis Pain Compound 60 CLICK TUBE TOPICAL ×2 (06:03→21:03)
[2024-09-05] MEDS: Gabapentin 100 MG Capsule 200 MG PO ×3 (06:08→21:03)
[2024-09-05 06:09] VITALS: BP 102/50; PULSE 85; RESP 15; TEMP 37.1
[2024-09-05 06:49] VITALS: PULSE 83; RESP 16
[2024-09-05] MEDS: Budesonide Respules 0.5 MG/2 ML AMPUL.NEB. INHALATION (06:49)
[2024-09-05 07:54] VITALS: PULSE 83
[2024-09-05] MEDS: Cholecalciferol (Vit D3) 125 MCG CAPSULE (5,000 UNITS) PO (07:54)
[2024-09-05] MEDS: Cyanocobalamin 500 MCG Tablet PO (07:54)
[2024-09-05] MEDS: Zinc Sulfate 50 mg zinc (220 mg) ORAL capsule PO (07:54)
[2024-09-05] MEDS: predniSONE 10 MG Tablet PO (07:54)
[2024-09-05] MEDS: Metoprolol(XL)Succ 50 MG Tablet PO (07:54)
[2024-09-05] MEDS: Pantoprazole Sodium 40 MG Tablet PO (07:54)
[2024-09-05] MEDS: Montelukast 10 MG Tablet PO (07:54)
[2024-09-05] MEDS: APIXABAN 5 MG TABLET PO ×2 (07:54→21:03)
[2024-09-05] MEDS: Lactobacillis Acidophilus 1 CAP PO (07:54)
[2024-09-05] MEDS: Ensure Plus High Protein 120 ML LIQUID PO ×2 (07:55→17:18)
--- NOTE | 2024-09-05 08:04 | PN.REHAB_ITS ---
Subjective Subjective Patient seen, examined. He has no new complaints. He has had ILD/Antisynthetase syndrome for 8 years. He sometimes uses oxygen as needed at home, he is short of breath with exertion. He is happy his health insurance is willing to pay for his rehab stay. Objective Data Objective Data Vital Signs: Vital Signs Temp Pulse Resp BP Pulse Ox O2 Del Method O2 Flow Rate 98.8 F 83 16 102/50 L 94 Room Air 1 09/05/24 06:09 09/05/24 07:54 09/05/24 06:49 09/05/24 06:09 09/04/24 22:00 09/05/24 06:09 09/04/24 08:34 Oxygen Flow Rate (L/min) 1 Oxygen Delivery Method Room Air Weight: 80.286 kg Body Mass Index (BMI) 25.3 Intake & Output: Intake and Output for Last 24 Hours 09/03/24 09/04/24 09/05/24 23:59 23:59 23:59 Intake Total 1090 / 1090 970 / 970 820 / 820 Output Total 675 / 675 1100 / 1100 650 / 650 Balance 415 / 415 -130 / -130 170 / 170 Medical Nutrition Assessment Dietitian: Malnutrition Criteria Met Start: 08/31/24 15:18 Freq: Status: Active Protocol: Document 08/31/24 15:18 SB (Rec: 08/31/24 15:18 SB [id number]) Nutrition Malnutrition Evidence of Malnutrition Exists Yes Malnutrition (severe): Acute Illness/Injury Evidenced By Suboptimal Energy Intake ( Severe),Weight Loss (Severe) Intake Problem Increased Nutrient Needs (specify) Etiology protein related to wound healing Signs/Symptoms as evidenced by boil on left inner thigh. Status Active Problem Clinical Problem Acute Disease or Injury Related Malnutrition Etiology severe malnutrition related to inadequate oral intake Signs/Symptoms as evidenced by 3% unintentional weight loss x 1 week and meeting <75% of estimated energy intake x 2 months. Status Active Problem Recommendation Dietitian Recommendations/Changes Continue liberal regular diet d/t signs and symptoms of malnutrition. Continue 120ml ensure plus high protein TID with medpass and Shay BID with medpass. Will adjust diet to cardiac diet, as appetite improves. Will adjust ONS, as appetite improves. Will monitor weight, as available. Reviewed and approved by Aniyah Powell RD, LD. Lab / Micro Data 09/01/24 04:55 08/31/24 06:15 Indicators for Scoring Admitted with or Primary Diagnosis of CVA/Stroke: No Hx of CVA/Stroke: No Physical Exam Const alert General Appearance: cooperative HEENT normocephalic Eyes PERRL and EOMs intact bilaterally Neck supple, no JVD and no carotid bruits Resp normal respiratory effort, normal air movement and clear to auscultation bilaterally Cardio regular rate and regular rhythm GI normal to inspection, nondistended, normoactive bowel sounds, non-tender and non-distended Extremity normal capillary refill General Extremity: Negative for edema Skin no rashes or lesions noted General Skin Exam: no breakdown Psych affect normal Appearance: appropriate Assessment & Plan Assessment/Plan (1) Debility: (2) Atrial fibrillation with RVR: (3) Hypotension: (4) Acute hypotension: (5) Abscess of left thigh: (6) Antisynthetase syndrome: (7) Shingles: (8) Osteoporosis: (9) Interstitial lung disease: (10) GERD (gastroesophageal reflux disease): (11) Neuropathic pain: PLAN: Plan 73 year old male with below past medical history hospitalized for atrial fibrillation with rapid ventricular response, hypotension, complicated by left thigh abscess, admitted to TCU with debility, here for rehabilitation, strengthening, prior to discharge home with . * Debility - PT/OT. * Pain - Tylenol 650mg q6 prn. * Bowel - senna/colace 2 tablets bid, Dulcolax 10mg pr x 1 prn, MOM 30ml po x1 prn. * DVT prophylaxis - Eliquis. * Atrial fibrillation - Metoprolol succinate 50mg daily, Eliquis 5mg bid. * ILD/Antisynthetase syndrome - Budesonide 0.5mg inhaled bid, Singulair 10mg daily, Prednisone 10mg daily, Bactrim DS MWF PJP prophylaxis. * Vitamin D deficiency - D3 125mcg daily. * Vitamin B12 deficiency - B12 500mcg daily. * Nutrition - Ensure Plus 120ml tidcm, Juven1 packet bidcm. * Post Herpetic neuralgia (Left hand) - Gabapentin 200mg tid. * GI prophylaxis - Lactobacillus 1 tablet daily * Left thigh abscess - Wound nurse following. * Allergic rhinitis - Loratadine 10mg daily prn. * GERD - Pantoprazole 40mg daily. * Zinc deficiency - Zinc Sulfate 50mg daily.
[2024-09-05] MEDS: Acetaminophen 325 MG Tablet 650 MG PO (09:21)
[2024-09-05 17:09] VITALS: BP 93/51; PULSE 71; RESP 16; TEMP 36.8; O2SAT 93
[2024-09-05 22:00] VITALS: PULSE 71; RESP 16; O2SAT 93
[2024-09-06 05:12] VITALS: BMI 25.1
[2024-09-06] MEDS: Gabapentin 100 MG Capsule 200 MG PO ×3 (05:59→21:17)
[2024-09-06] MEDS: Arthritis Pain Compound 60 CLICK TUBE TOPICAL ×2 (05:59→21:17)
[2024-09-06 06:00] VITALS: BP 96/51; PULSE 73; RESP 16; TEMP 36.7; O2SAT 93
[2024-09-06 07:28] VITALS: BP 96/51; PULSE 73
[2024-09-06] MEDS: Cholecalciferol (Vit D3) 125 MCG CAPSULE (5,000 UNITS) PO (07:28)
[2024-09-06] MEDS: Cyanocobalamin 500 MCG Tablet PO (07:28)
[2024-09-06] MEDS: Metoprolol(XL)Succ 50 MG Tablet PO (07:28)
[2024-09-06] MEDS: Ensure Plus High Protein 120 ML LIQUID PO ×3 (07:28→16:43)
[2024-09-06] MEDS: predniSONE 10 MG Tablet PO (07:29)
[2024-09-06] MEDS: Smz/Tmp Ds Tablet 1 TABLET PO (07:29)
[2024-09-06] MEDS: Montelukast 10 MG Tablet PO (07:29)
[2024-09-06] MEDS: APIXABAN 5 MG TABLET PO ×2 (07:29→21:17)
[2024-09-06] MEDS: Pantoprazole Sodium 40 MG Tablet PO (07:29)
[2024-09-06] MEDS: Zinc Sulfate 50 mg zinc (220 mg) ORAL capsule PO (07:29)
[2024-09-06] MEDS: Lactobacillis Acidophilus 1 CAP PO (07:30)
[2024-09-06] MEDS: Acetaminophen 325 MG Tablet 650 MG PO (08:57)
[2024-09-06 10:45] VITALS: PULSE 73; RESP 16
[2024-09-06] MEDS: Budesonide Respules 0.5 MG/2 ML AMPUL.NEB. INHALATION ×2 (10:45→18:48)
[2024-09-06 17:22] VITALS: BP 95/62; PULSE 78; RESP 15; TEMP 36.7; O2SAT 92
[2024-09-06 18:48] VITALS: PULSE 78; RESP 22
[2024-09-06 22:00] VITALS: PULSE 78; RESP 16; O2SAT 93
[2024-09-07] MEDS: Gabapentin 100 MG Capsule 200 MG PO ×3 (05:12→21:30)
[2024-09-07] MEDS: Acetaminophen 325 MG Tablet 650 MG PO ×2 (05:12→11:26)
[2024-09-07 05:15] VITALS: BP 114/52; PULSE 90; RESP 16; TEMP 36.9; O2SAT 93
[2024-09-07] MEDS: Arthritis Pain Compound 60 CLICK TUBE TOPICAL ×2 (05:17→21:33)
[2024-09-07] MEDS: Budesonide Respules 0.5 MG/2 ML AMPUL.NEB. INHALATION ×2 (08:00→19:05)
[2024-09-07 08:05] VITALS: PULSE 81; RESP 20
[2024-09-07] MEDS: predniSONE 10 MG Tablet PO (08:57)
[2024-09-07] MEDS: APIXABAN 5 MG TABLET PO ×2 (08:57→21:33)
[2024-09-07] MEDS: Zinc Sulfate 50 mg zinc (220 mg) ORAL capsule PO (08:57)
[2024-09-07] MEDS: Montelukast 10 MG Tablet PO (08:57)
[2024-09-07] MEDS: Pantoprazole Sodium 40 MG Tablet PO (08:57)
[2024-09-07] MEDS: Ensure Plus High Protein 120 ML LIQUID PO ×2 (08:57→17:26)
[2024-09-07] MEDS: Cholecalciferol (Vit D3) 125 MCG CAPSULE (5,000 UNITS) PO (08:57)
[2024-09-07] MEDS: Lactobacillis Acidophilus 1 CAP PO (08:57)
--- NOTE | 2024-09-07 08:57 | PCM.PROGNOTE ---
Subjective Subjective Afebrile VSS -heart rate is within normal limits. Blood pressure over the past 24 hours has ranged from 95/51 to 114/52. Maintaining appropriate oxygen saturation on RA Oral intake - FOOD variable, ranging from poor to occasionally good. Was better at admission to rehab. FLUIDS poor to fair Weight is down approximately 6 pounds since admission to rehab. Discussed with nursing - no problems that need addressed Reviewed the THERAPY notes Medication list reviewed. TSH and cortisol recently normal in August 2024. LDL 29. HDL low at 34. Has had a positive HANNA and also a positive [id number] DNA in the past. EMR reviewed. Past medical history is positive for essential hypertension, hyperlipidemia, fatty infiltration of the liver, ILD/antisynthetase syndrome, chronic immunosuppression with CellCept and prednisone, atrial fibrillation, chronic anticoagulation, nephrolithiasis, history of left thyroid nodule, BPH, GERD, osteoporosis, osteoarthritis, gout ( saw Dr. Fair once 6 years ago). Tells me that when COVID first started he got put on Plaquenil and he felt great. He is c/o early satiety. Denies any hx of peptic ulcer disease. He tells me he is lost approximately 20 pounds in the past 3 months. His last colonoscopy was approximately 1 year ago and there was no problem. He has not had N/V until put on Shay in the hospital and then he got nauseated and vomited. Denies abdominal pain. No change in bowel habits. Has some pain in his joints but no red, swollen or hot joints. Denies rash other than the shingles. He has some chronic back pain and also has pain in the R anterior thigh and the knee.......sometimes the pain feels shock-like. He has generalized muscle weakness. Denies fevers/chills/night sweats. Has been off the Cell Cept since the shingles and Left thigh wound. Saw Dr. Fair only for gout.......had not been diagnosed with ILD/anti-synthetase S yet. + HANNA and anti dSDNA in 2014. Denies muscle pain but, he is very painful to palpation in the Left anterior thigh and the medial left thigh. Objective Data Objective Data Vital Signs: Vital Signs Temp Pulse Resp BP Pulse Ox O2 Del Method O2 Flow Rate 98.4 F 81 20 H 114/52 L 93 Room Air 1 09/07/24 05:15 09/07/24 08:05 09/07/24 08:05 09/07/24 05:15 09/07/24 05:15 09/07/24 05:15 09/04/24 08:34 Oxygen Flow Rate (L/min) 1 Oxygen Delivery Method Room Air Weight: 175 lb 7.807 oz Body Mass Index (BMI) 25.1 Intake & Output: Intake and Output for Last 24 Hours 09/05/24 09/06/24 09/07/24 23:59 23:59 23:59 Intake Total 1940 / 1940 1360 / 1360 350 / 350 Output Total 1550 / 1550 1200 / 1200 Balance 390 / 390 160 / 160 350 / 350 Medical Nutrition Assessment Dietitian: Malnutrition Criteria Met Start: 08/31/24 15:18 Freq: Status: Active Protocol: Document 08/31/24 15:18 SB (Rec: 08/31/24 15:18 SB [id number]) Nutrition Malnutrition Evidence of Malnutrition Exists Yes Malnutrition (severe): Acute Illness/Injury Evidenced By Suboptimal Energy Intake ( Severe),Weight Loss (Severe) Intake Problem Increased Nutrient Needs (specify) Etiology protein related to wound healing Signs/Symptoms as evidenced by boil on left inner thigh. Status Active Problem Clinical Problem Acute Disease or Injury Related Malnutrition Etiology severe malnutrition related to inadequate oral intake Signs/Symptoms as evidenced by 3% unintentional weight loss x 1 week and meeting <75% of estimated energy intake x 2 months. Status Active Problem Recommendation Dietitian Recommendations/Changes Continue liberal regular diet d/t signs and symptoms of malnutrition. Continue 120ml ensure plus high protein TID with medpass and Shay BID with medpass. Will adjust diet to cardiac diet, as appetite improves. Will adjust ONS, as appetite improves. Will monitor weight, as available. Reviewed and approved by Aniyah Powell RD, LD. Lab / Micro Data 09/07/24 14:13 09/07/24 14:13 Physical Exam Const alert, oriented x3 and no apparent distress Resp normal respiratory effort and clear to auscultation bilaterally Effort and Inspection: Negative for tachypneic Cardio regular rate, regular rhythm and no gallops GI normal to inspection, nondistended, normoactive bowel sounds, soft to palpation and non-tender Extremity no calf tenderness Extremity Narrative: The R anterior thigh is painful to palpation. He is c/o R knee pain but, there is no swelling in the joint and no erythema. The pain is with palpation of the quadriceps tendon just proximal to the knee. He describes the pain in the R anterior thigh as shock like but, he also has pain with palpation of the muscle. NO calf pain and no pain with palpation of the calves or muscles of the UE's. General Extremity: Negative for edema Skin Wound Narrative: There is an open draining wound on the L medial thigh. It has purulent drainage which the nurses tell me is increased from last week. There is no odor. small rim of erythema around the wound with induration in a larger ring around the wound. Very tender to palpation around the wound, maame the inferior pole of the wound. + increased warmth to touch. LUE is mildly edematous.......I am told this is getting better. NO open shingles lesions. Psych thought process normal and cooperative Appearance: appropriate Assessment & Plan Assessment/Plan (1) Debility: (2) Abscess of left thigh: (3) Antisynthetase syndrome: (4) Ambulatory dysfunction: (5) Shingles: QUALIFIERS: Herpes zoster complications: unspecified herpes zoster complication Qualified Code(s): B02.8 - Zoster with other complications (6) Interstitial lung disease: (7) Steroid dependence: PLAN: Plan 1. COntinue therapy 2. CBC with diff, ESR, CRP, aldolase, CPK 3. US of the left thigh to check for reaccumulation of abscess He has only ever seen rheumatology once. Was seen once in [place] and diagnosed with anti-synthetase S and never seen after that. Follows with Dr. Landon for [place]. I am suspicious that he may have polymyositis with generalized weakness/debility. Has had a + HANNA and uljb-[id number] DNA in the past. I recommended to him that since he lives locally he consider [id number] up at [facility] for autoimmune disease. Charges/Coding Visit Charges Inpatient E&M: 89892 Subs Hosp L2
[2024-09-07] MEDS: Cyanocobalamin 500 MCG Tablet PO (08:59)
[2024-09-07 09:05] VITALS: BP 92/52; PULSE 99
[2024-09-07 09:12] VITALS: BP 124/65; BP 73/49; BP 99/72; PULSE 103; PULSE 104; PULSE 105
--- NOTE | 2024-09-07 13:35 | US_ITS ---
INDICATION: prior abscess -- left med thigh around boil, check for fluid EXAMINATION: Left Lower extremity duplex venous ultrasound. HISTORY: Prior abscess TECHNIQUE: Ultrasound evaluation of the area of previous abscess/inflammation obtained with grayscale and color imaging. COMPARISON: CT of 08/29/2024. FINDINGS: There is a moderate amount of fluid extending into the subcutaneous soft tissues at the level of previous abscess. This does extend into the subcutaneous soft tissue planes. Maximal dimension in the subcutaneous fascial planes estimated at 4.3 x 0.9 cm out. Small amount of peripheral blood flow. There is extension into the skin surface along the center of this collection. US/Ext Non Vasc Limited/Soft Tiss IMPRESSION: 1. Subcutaneous fluid with maximal dimension of 4.2 x 0.9 cm however extension superficially to the skin surface the center of this collection. Findings are consistent with residual fluid/abscess. Mild surrounding hyperemia. Electronically Signed: Greg Jha MD at 17:12 EDT ,
[2024-09-07] MEDS: Collagenase 30gm Tube 1 APPLIC TOPICAL (14:21)
[2024-09-07 14:24] LABS: Absolute Lymphocyte Count 0.54 X10^3/uL (0.83-4.51); Absolute Neutrophil Count 22.4 X10^3/uL (2.0-7.7); Basophil# 0.09 X10^3/uL; Basophil% 0.4 % (0-1); Hematocrit 44.1 % (40-54); Hemoglobin 13.5 g/dL (13.0-16.5); Lymphocyte # 0.54 X10^3/ul (0.83-4.51); Lymphocyte % 2.2 % (19-41); Mean Corp Hgb Conc 30.6 g/dL (32-36); Mean Corpuscular Hgb 28.7 pg (27.0-32.0); Mean Corpuscular Volume 93.8 fL (80-94); Mean Platelet Vol. 8.5 fl (6.2-12.0); Monocyte# 0.99 X10^3/uL; Monocyte% 4.1 % (0-10); NRBC Flagged by Analyzer 0 % (0-5); Neutrophil % 92.3 % (47-70); POSITIVE DIFFERENTIAL YES; Platelet Count 344 K/mm3 (150-450); RBC Distribution Width CV 15.6 % (11.6-14.6); RBC Distribution Width SD 53.5 fl (35.1-43.9); White Blood Count 24.3 K/mm3 (4.4-11.0)
[2024-09-07 14:33] LABS: Differential Indicated SCAN CRITERIA MET
[2024-09-07 14:43] LABS: Erythrocyte Sedimentation Rate 61 mm/hr (0-20)
[2024-09-07 14:44] LABS: ALB/GLOB Ratio 0.6 RATIO (0.9-2.4); AST(SGOT) 22 U/L (15-37); Alanine Aminotransfer ALT/SGPT 30 U/L (16-61); Albumin, Serum 2.4 g/dL (3.2-5.0); Alkaline Phosphatase 66 U/L (45-117); Anion Gap 5 (5-15); BUN 17 mg/dL (7-18); BUN/Creat Ratio 14.7 RATIO (10-20); CPK Total, Creatine Kinase 25 U/L (39-308); Calcium,Total 9.6 mg/dL (8.5-10.1); Chloride 104 mmol/L (98-107); Creatinine, Serum 1.16 mg/dL (0.70-1.30); EST Glomerular Filtration Rate 66 mL/min (>60); Est Glom Filt Rate - Afr Amer 80 mL/min (>60); Estimated Creatinine Clearance 60.31 ml/min; Globulin 4.2 g/dL (2.2-4.2); Glucose 135 mg/dL (74-106); Potassium 4.5 mmol/L (3.5-5.1); Protein, Total 6.6 g/dL (6.4-8.2); Sodium Level 134 mmol/L (136-145)
[2024-09-07 17:39] VITALS: BP 110/60; PULSE 72; RESP 16; TEMP 36.7; O2SAT 92
[2024-09-07 19:05] VITALS: PULSE 88; RESP 18
[2024-09-08] VITALS (7 sets, daily range): BP systolic 91–111; BP diastolic 30–70; PULSE 80–90; RESP 16–18; TEMP 36.7–37.2; O2SAT 92–94
--- NOTE | 2024-09-08 | UL_PTH ---
PATIENT: YARON BUTLER LOC: RU U#:[id number] AGE/SX: 73/M ROOM: RU405 RE08/30/[address]: Dr. Verónica Arteaga DO : 1950 BED: 1 DIS: 09/23/2024 SPEC #: [id number] RECD: 09/11/24 07:11 STATUS: KAITLIN LINCherrie #: [id number] STANLEY: 09/08/24 00:[address]: Chuckie Kaba DEPT: SURGICAL PATHOLOGY RECD BY: Nitesh Black ENTERED: 09/11/24 08:23 SP TYPE: ULCER OTHR DR: DO Dr. Tanya Chapman DO Dr. Robert Leininger, MD Dr. Robert Siska, MD Dr. Tai Chi Kwok, MD Tissues: ULCER Procedures: Surgery Specimen Level III Comments: @ Ordering doctor for SUIII edited from to @ ayden PARHAM at 09/11/24901 @ Submitting doctor edited from to @ ayden PARHAM at 09/11/24901 HEADER OPERATION: Incision, drainage abscess, thigh PRE-OP DIAGNOSIS: Thigh ulcer TISSUE SUBMITTED: Left medial thigh ulcer MICROSCOPIC DIAGNOSIS Left medial thigh ulcer, excision: Skin with underlying tissue with focal ulceration, abscess formation, acute and chronic inflammation and granulation tissue reaction. 09/12/2024 MICROSCOPIC DESCRIPTION Slides are reviewed. GROSS DESCRIPTION Received in fixative is one container labeled with the patient's name and designated Left medial thigh ulcer. The specimen consists of a piece of garnett-white skin that is partially disrupted measuring 2.5 x 1.5cm and up to 0.6cm in thickness. The skin surface shows extensive area of ulceration. This specimen is inked, serially sectioned and submitted entirely in two cassettes. 09/11/2024 TC:2 CPT:33387
[2024-09-08] MEDS: Arthritis Pain Compound 60 CLICK TUBE TOPICAL ×2 (05:50→21:43)
[2024-09-08] MEDS: Gabapentin 100 MG Capsule 200 MG PO (05:50)
[2024-09-08] MEDS: Collagenase 30gm Tube 1 APPLIC TOPICAL (05:54)
[2024-09-08] MEDS: Montelukast 10 MG Tablet PO (07:43)
[2024-09-08] MEDS: Zinc Sulfate 50 mg zinc (220 mg) ORAL capsule PO (07:43)
[2024-09-08] MEDS: Metoprolol(XL)Succ 50 MG Tablet PO (07:43)
[2024-09-08] MEDS: Cyanocobalamin 500 MCG Tablet PO (07:43)
[2024-09-08] MEDS: Pantoprazole Sodium 40 MG Tablet PO (07:44)
[2024-09-08] MEDS: Lactobacillis Acidophilus 1 CAP PO (07:44)
[2024-09-08] MEDS: APIXABAN 5 MG TABLET PO (07:44)
[2024-09-08] MEDS: predniSONE 10 MG Tablet PO (07:44)
[2024-09-08] MEDS: Cholecalciferol (Vit D3) 125 MCG CAPSULE (5,000 UNITS) PO (07:44)
[2024-09-08] MEDS: Smz/Tmp Ds Tablet 1 TABLET PO (07:44)
[2024-09-08] MEDS: Budesonide Respules 0.5 MG/2 ML AMPUL.NEB. INHALATION ×2 (08:20→22:00)
--- NOTE | 2024-09-08 08:36 | NURSING ---
Family brought in 30 day event monitor sent to there home, ordered by Dr Quiñonez on acute. Event monitor applied to patients chest and explained to pt how it works.
[2024-09-08 11:53] LABS: M R Staph aureus DNA By PCR Negative (Negative); Probe Check PASS; Specimen Processing Control PASS; Staph aureus DNA By PCR NEGATIVE (Negative)
[2024-09-08] MEDS: levoFLOXacin IV 500 MG/100 ML BAG 100 MG IV (12:08)
--- NOTE | 2024-09-08 12:48 | WOUNDNOTE ---
wound photo: left medial thigh
--- NOTE | 2024-09-08 13:09 | PCM.PROGNOTE ---
Subjective Subjective Afebrile VSS -blood pressure has improved and for the past 24 hours the blood pressure has ranged from 110/68 to 124/65. Heart rate is within normal limits today. Maintaining appropriate oxygen saturation on RA-92 to 93% on room air. Denies shortness of breath today. Oral intake - FOOD ate 75 to 100% of lunch and breakfast today FLUIDS doing better with fluid intake. Discussed with nursing - No acute changes overnight. Reviewed the THERAPY notes Medication list reviewed. All recent lab work was personally reviewed. The white blood cell count is elevated at 24.3 with 92.3% neutrophils. Hemoglobin is 13.5. ESR is elevated at 61. Sodium is 134 and the potassium is 4.5. Creatinine is stable at 1.16 with a BUN of 17. Random blood sugar was 135. Calcium is within normal limits. LFTs are unremarkable. Total CK is 25, and aldolase is pending. PCR on the wound drainage today is negative for Staph aureus and negative for MRSA. Was on Levaquin while on the acute side of the hospital for the abscess. The US of the left thigh showed subcutaneous fluid in the left medial thigh with maximal dimension of 4.2 x 0.9 cm. It extends superficially to the skin surface. This is consistent with residual fluid/abscess. Review of micro shows no cultures of the Left thigh abscess. He had a BC on 08/22/24 that had no growth. He tells me he has a mild cough productive of white sputum which is his baseline. He denies shortness of breath today. He has no conversational dyspnea and he is not tachypneic. He is complaining of anterior thigh pain on the right. Today he tells me it is constant pain and the only thing that seems to help is ice. He denies shocklike pain or burning pain in the right thigh. He is currently taking gabapentin 200 mg 3 times daily and it is not helping with the pain. He has had plain x-rays of the lumbosacral spine in June of this year that showed multilevel degenerative changes with chronic subluxations at L3-4 and L4-5. There was no fracture and no suspicious osseous lesions. He has probable nephrolithiasis in the left kidney. There is also diffuse demineralization with multilevel endplate spondylosis. Denies CP, palpitations, lightheadedness, nausea/vomiting/abdominal pain, calf pain and dysuria Objective Data Objective Data Vital Signs: Vital Signs Temp Pulse Resp BP Pulse Ox O2 Del Method O2 Flow Rate 98.1 F 90 16 110/70 92 Room Air 1 09/08/24 05:30 09/08/24 08:47 09/08/24 08:47 09/08/24 07:43 09/08/24 05:30 09/08/24 10:00 09/04/24 08:34 Oxygen Flow Rate (L/min) 1 Oxygen Delivery Method Room Air Weight: 175 lb 7.807 oz Body Mass Index (BMI) 25.1 Intake & Output: Intake and Output for Last 24 Hours 09/06/24 09/07/24 09/08/24 23:59 23:59 23:59 Intake Total 1360 / 1360 1540 / 1540 420 / 420 Output Total 1200 / 1200 1050 / 1050 450 / 450 Balance 160 / 160 490 / 490 -30 / -30 Medical Nutrition Assessment Dietitian: Malnutrition Criteria Met Start: 08/31/24 15:18 Freq: Status: Active Protocol: Document 08/31/24 15:18 SB (Rec: 08/31/24 15:18 SB [id number]) Nutrition Malnutrition Evidence of Malnutrition Exists Yes Malnutrition (severe): Acute Illness/Injury Evidenced By Suboptimal Energy Intake ( Severe),Weight Loss (Severe) Intake Problem Increased Nutrient Needs (specify) Etiology protein related to wound healing Signs/Symptoms as evidenced by boil on left inner thigh. Status Active Problem Clinical Problem Acute Disease or Injury Related Malnutrition Etiology severe malnutrition related to inadequate oral intake Signs/Symptoms as evidenced by 3% unintentional weight loss x 1 week and meeting <75% of estimated energy intake x 2 months. Status Active Problem Recommendation Dietitian Recommendations/Changes Continue liberal regular diet d/t signs and symptoms of malnutrition. Continue 120ml ensure plus high protein TID with medpass and Shay BID with medpass. Will adjust diet to cardiac diet, as appetite improves. Will adjust ONS, as appetite improves. Will monitor weight, as available. Reviewed and approved by Aniyah Powell RD, LD. Lab / Micro Data 09/07/24 14:13 09/07/24 14:13 Labs: Laboratory Results - last 24 hr 09/07/24 14:13: WBC 24.3 H, RBC 4.70, Hgb 13.5, Hct 44.1, MCV 93.8, MCH 28.7, MCHC 30.6 L, RDW Std Deviation 53.5 H, RDW Coeff of Opal 15.6 H, Plt Count 344, MPV 8.5, Immature Gran % (Auto) 1.000 H, Neut % (Auto) 92.3 H, Lymph % (Auto) 2.2 L, Dawes % (Auto) 4.1, Eos % (Auto) 0.0, Baso % (Auto) 0.4, Absolute Neuts (auto) 22.4 H, Absolute Lymphs (auto) 0.54 L, Nucleated RBC % 0, Differential Comment COMMENT, ESR 61 H, Sodium 134 L, Potassium 4.5, Chloride 104, Carbon Dioxide 25.0, Anion Gap 5, BUN 17, Creatinine 1.16, Estim Creat Clear Calc 60.31, Est GFR (MDRD) Af Amer 80, Est GFR (MDRD) Non-Af 66, BUN/Creatinine Ratio 14.7, Glucose 135 H, Calcium 9.6, Total Bilirubin 0.50, AST 22, ALT 30, Alkaline Phosphatase 66, Total Creatine Kinase 25 L, Total Protein 6.6, Albumin 2.4 L, Globulin 4.2, Albumin/Globulin Ratio 0.6 L 09/08/24 10:15: S.aureus Protein A PCR NEGATIVE, MRSA (PCR) Negative Radiography Diagnostic Testing: Radiology Impression Soft Tissue Ultrasound 09/07/24 13:35 IMPRESSION: 1. Subcutaneous fluid with maximal dimension of 4.2 x 0.9 cm however extension superficially to the skin surface the center of this collection. Findings are consistent with residual fluid/abscess. Mild surrounding hyperemia. Electronically Signed: Greg Jha MD at 17:12 EDT , Physical Exam Const alert and oriented x3 Constitutional Narrative: He currently has an ice pack on his right anterior thigh for pain. General Appearance: cooperative HEENT moist oral mucous membranes HEENT Narrative: No thrush Resp normal respiratory effort Resp Narrative: CTA, diminished in the bases, L>R Effort and Inspection: Negative for tachypneic, respiratory distress, labored or uses accessory muscles Cardio regular rate, regular rhythm and no gallops Cardio Narrative: heart sounds are somewhat distant GI normal to inspection, nondistended, normoactive bowel sounds, soft to palpation and non-tender Extremity no calf tenderness Extremity Narrative: pain with palpation of the Left medial thigh and the R anterior thigh. Negative SLR. NO red, swollen joints of the LE's. General Extremity: Negative for cyanosis or edema Skin Wound Narrative: No change in the left thigh wound since yesterday. Assessment & Plan Assessment/Plan (1) Debility: (2) Abscess of left thigh: PLAN: Is this bacterial? I can not find any cultures from when the initial I&D was done. OR, could this be due to vasculitis? (3) Antisynthetase syndrome: PLAN: Has ILD and is treated by Dr. Landon. I suspect he has additional autoimmune conditions, possibly polymyositis? SLE? vasculitis? (4) Ambulatory dysfunction: (5) Shingles: QUALIFIERS: Herpes zoster complications: unspecified herpes zoster complication Qualified Code(s): B02.8 - Zoster with other complications PLAN: NO open lesions......all are dried up. Pain in the LUE is controlled adequately with Gabapentin. The GAbapentin is not helping with the pain in the R anterior thigh......ice helps. Negative SLR on the right. (6) Interstitial lung disease: (7) Steroid dependence: (8) Left thigh pain: (9) Generalized weakness: PLAN: Plan 1. Continue therapy 2. Has been started on Levaquin 500 mg intravenous daily. SA and MRSA PCR's are negative. Continue Bactrim prophylactically as previously taken for PCP prophylaxis. 3. Increase the prednisone to 20 mg daily for the next 3 days and give 50 mg of Solu-Cortef now 4. Consult was obtained with Dr. Kaba 5. Await the results of the Gram stain COSTUMER ASSISTANT done of the wound drainage today. 6. Recheck a CBC with differential, ESR, BMP and CRP on Wednesday 7. Discussed the possibility of polymyositis/vasculitis with Dr. Kaba. Aldolase is pending. Will plan on I&D of the left medial thigh wound and a proximal muscle bx. Dr. Kaba will discuss with pathology and make sure that the specimen will be obtained/processed appropriately to look for polymyositis. 8. stress dose of Solu-cortef today and then increase the Prednisone to 20 mg daily starting tomorrow AM for 3-4 days. Charges/Coding Visit Charges Inpatient E&M: 40107 Subs Hosp L2
[2024-09-08] MEDS: Hydrocortisone Sod Succinate 100 MG/2 ML Vial 50 MG IV (13:36)
--- NOTE | 2024-09-08 13:39 | EX.PCM.CON.S ---
Assessment & Plan Assessment/Plan (1) Abscess of left thigh: PLAN: Discussed risks, benefits,and alternatives of surgery. I talked the patient extensively about the risks of surgery, including bleeding, infection, damage to surrounding structures, surgical site dehiscence and wound formation, need for wound care, need for repeat operations, failure to obtain the desired result, DVT/PE, and the risks of anesthesia including . The benefits and alternatives of this surgery were also discussed. All of their questions were answered, and they agreed to proceed with surgery. Plan for I&D in the operating room with packing for the abscess. Patient in agreement. OK for MAC with local anesthesia. Need electrocautery in the setting of Eliquis HPI Consult Data Date of Consult: 09/08/24 HPI Narrative HPI Narrative: YARON BUTLER, is a 73 M 73 year old male with below past medical history hospitalized for atrial fibrillation with rapid ventricular response, hypotension, complicated by left thigh abscess, admitted to TCU with debility, here for rehabilitation, strengthening, prior to discharge home with . Dr. Arteaga consulted me today for left medial thigh abscess that has been present for several days and was redemonstrated on imaging today with an ultrasound. Patient reports tenderness to palpation and subjective fever/chills. His white blood cell count is 24,000 (only 12,000 yesterday and in this time the abscess became more painful). No history of clotting problems, but he was recently placed on Eliquis yesterday for his atrial fibrillation. Surgery saw him on 29 August 2024 and recommended a course of Augmentin, as the CT scan did not demonstrate any fluid collections; however, the abscess did not improve and this led to the above-noted ultrasound. FOR[facility]LY [facility], LATER [facility] Medical History Steroid dependence Antisynthetase syndrome History of shingles Shingles Abscess of left thigh BOOP (bronchiolitis obliterans with organizing pneumonia) Wears glasses High cholesterol Easy bruising Back pain Injury of head and neck Blackout Gastric reflux Non-smoker On home oxygen therapy Hoarseness Chronic cough History of echocardiogram Hypertension History of stress test Cardiology follow-up encounter History of atrial fibrillation Atrial fibrillation COVID-19 Osteoporosis Kidney stones Atrial fibrillation RBBB (right bundle branch block) Antisynthetase syndrome Essential hypertension Mixed hyperlipidemia Asthma Interstitial lung disease GERD (gastroesophageal reflux disease) Fatty liver BPH (benign prostatic hyperplasia) Lung nodule Vasovagal syncope Abnormal cardiac CT angiography Home Medications ?Medication ?Instructions ?Recorded ?Last Taken ?Type cyanocobalamin (vitamin B-12) 500 500 mcg PO DAILY vitamin 07/14/21 Unknown History mcg tablet denosumab 60 mg/mL subcutaneous 60 mg subcut [id number] low calcuim 07/14/21 Unknown History syringe (Prolia) pantoprazole 40 mg tablet,delayed 40 mg PO DAILY reflux 07/14/21 08/30/24 History release budesonide 0.5 mg/2 mL suspension 0.5 mg inhalation BID sob 01/01/22 08/30/24 History for nebulization (Pulmicort) cetirizine 10 mg tablet (Zyrtec) 10 mg PO DAILY PRN allergies 01/01/22 08/30/24 History cholecalciferol (vitamin D3) 75 150 mcg PO DAILY vitamin 01/01/22 08/30/24 History mcg (3,000 unit) tablet lactobacillus combination no.9 4 4,000 mmu cells PO DAILY supplement 01/01/22 08/30/24 History billion cell capsule (Adult 50 Plus Probiotic) zinc gluconate 30 mg tablet 30 mg PO DAILY supplement 01/01/22 08/30/24 History montelukast 10 mg tablet 10 mg PO DAILY allergies 05/12/23 08/30/24 History (Singulair) mycophenolate mofetil 500 mg tablet 3,000 mg PO BID AUTOIMMUNE DISEASE 05/12/23 Unknown History prednisone 1 mg tablet 10 mg PO DAILY inflammation 12/09/23 08/30/24 History gabapentin 100 mg capsule 100 mg PO TID nerve pain 08/22/24 08/30/24 History apixaban 5 mg tablet (Eliquis) 5 mg PO BID blood thinner 30 days 08/24/24 08/30/24 Rx #60 tabs levofloxacin 750 mg tablet 750 mg PO DAILY ATB #5 tabs 08/30/24 Unknown Rx metoprolol succinate 50 mg 50 mg PO DAILY Blood pressure #0 08/30/24 08/30/24 Rx tablet,extended release 24 hr tabs sulfamethoxazole 800 1 tab PO .MWF ATB #1 TAB 08/30/24 Unknown Rx mg-trimethoprim 160 mg tablet (Bactrim DS) Allergy/AdvReac Type Severity Reaction Status Date / Time monosodium glutamate Allergy Abd Verified 08/28/24 16:56 cramps/diarrhea Penicillins (PCN) Allergy Rash Verified 08/28/24 16:56 allopurinol AdvReac Unknown cough Verified 08/28/24 16:56 morphine AdvReac Other Verified 08/28/24 16:56 tamsulosin (From Flomax) AdvReac Other Verified 08/28/24 16:56 Family History Grandfather CVA (cerebral vascular accident) Grandmother Congestive heart failure Grandmother Cardiac pacemaker in situ Mother Heart disease Hypertension Father Heart disease Cardiac arrhythmia Surgical History History of incision and drainage Hx of cystoscopy History of umbilical hernia repair History of inguinal hernia repair Social History household members: spouse Smoking Status: Never smoker alcohol intake: current details: Rare substance use type: does not use caffeine: Yes Type: coffee Number of servings: 1 Physical Exam Narrative Left medial thigh with approximately 3 x 4 cm ulcer with surrounding induration and palpable underlying fluctuance. Tender to palpation hot and swollen. Medical Records Data Medical Nutrition Assessment Dietitian: Malnutrition Criteria Met Start: 08/31/24 15:18 Freq: Status: Active Protocol: Document 08/31/24 15:18 SB (Rec: 08/31/24 15:18 SB [id number]) Nutrition Malnutrition Evidence of Malnutrition Exists Yes Malnutrition (severe): Acute Illness/Injury Evidenced By Suboptimal Energy Intake ( Severe),Weight Loss (Severe) Intake Problem Increased Nutrient Needs (specify) Etiology protein related to wound healing Signs/Symptoms as evidenced by boil on left inner thigh. Status Active Problem Clinical Problem Acute Disease or Injury Related Malnutrition Etiology severe malnutrition related to inadequate oral intake Signs/Symptoms as evidenced by 3% unintentional weight loss x 1 week and meeting <75% of estimated energy intake x 2 months. Status Active Problem Recommendation Dietitian Recommendations/Changes Continue liberal regular diet d/t signs and symptoms of malnutrition. Continue 120ml ensure plus high protein TID with medpass and Shay BID with medpass. Will adjust diet to cardiac diet, as appetite improves. Will adjust ONS, as appetite improves. Will monitor weight, as available. Reviewed and approved by Aniyah Powell, JAIRON, LD. Lab / Micro Data 09/07/24 14:13 09/07/24 14:13 Labs: Laboratory Results - last 24 hr 09/07/24 14:13: WBC 24.3 H, RBC 4.70, Hgb 13.5, Hct 44.1, MCV 93.8, MCH 28.7, MCHC 30.6 L, RDW Std Deviation 53.5 H, RDW Coeff of Opal 15.6 H, Plt Count 344, MPV 8.5, Immature Gran % (Auto) 1.000 H, Neut % (Auto) 92.3 H, Lymph % (Auto) 2.2 L, [place] % (Auto) 4.1, Eos % (Auto) 0.0, Baso % (Auto) 0.4, Absolute Neuts (auto) 22.4 H, Absolute Lymphs (auto) 0.54 L, Nucleated RBC % 0, Differential Comment COMMENT, ESR 61 H, Sodium 134 L, Potassium 4.5, Chloride 104, Carbon Dioxide 25.0, Anion Gap 5, BUN 17, Creatinine 1.16, Estim Creat Clear Calc 60.31, Est GFR (MDRD) Af Amer 80, Est GFR (MDRD) Non-Af 66, BUN/Creatinine Ratio 14.7, Glucose 135 H, Calcium 9.6, Total Bilirubin 0.50, AST 22, ALT 30, Alkaline Phosphatase 66, Total Creatine Kinase 25 L, Total Protein 6.6, Albumin 2.4 L, Globulin 4.2, Albumin/Globulin Ratio 0.6 L 09/08/24 10:15: S.aureus Protein A PCR NEGATIVE, MRSA (PCR) Negative Imaging Radiology Impression Soft Tissue Ultrasound 09/07/24 13:35 IMPRESSION: 1. Subcutaneous fluid with maximal dimension of 4.2 x 0.9 cm however extension superficially to the skin surface the center of this collection. Findings are consistent with residual fluid/abscess. Mild surrounding hyperemia. Electronically Signed: Greg Jha MD at 17:12 EDT , Charges/Coding Multi Select Codes Visit Charges Office Visit/Consults: 61749 IP Consult L5 (Reviewed imaging, examined patient. 57 modifier for decision to do major surgical intervention today )
[2024-09-08] MEDS: Gabapentin 300 MG Capsule PO ×2 (14:50→21:43)
--- NOTE | 2024-09-08 17:31 | PCM.OP.BLANK ---
Operative Report Date of Procedure: 09/08/24 Surgery/Procedure Date: 08 Sep 2024 Incision/Procedure Start Time: 7 pm Incision Close/Procedure End Time: 7:20 pm PATIENT: Shiva Verdugo PRE-OPERATIVE DIAGNOSIS: Left medial thigh abscess POST-OPERATIVE DIAGNOSIS: Same PROCEDURE PERFORMED: 1) Incision and drainage of left medial thigh abscess with packing (CPT 11928) (complicated by size, location, and blood thinners) OPERATIVE FINDINGS: Abscess in the left medial thigh with abscess cavity INDICATIONS: Patient has a left medial thigh abscess. Patient is on blood thinner. We discussed benefits of the operation and alternatives , as well as the risks of worsening infection, bleeding, damage to surrounding structures, return of the abscess and need for repeat surgeries, healing problems/dehiscence of the wound and need for wound care, and risks from anesthesia. OPERATIVE DETAILS: The patient was correctly notified in preoperative holding, and I marked his left thigh. They were taken back to the operating room where they were administered local anesthesia and placed in the supine positioning (30 cc of 1% lidocaine with 1:100,000 epinephrine). Once appropriate level of anesthesia was obtained, the site was prepped and draped in sterile fashion. A 15 blade scalpel was used to make an elliptical incision around the abscess and send the ulcer to pathology, and dissection was carried out with a hemostat to break open the loculations and take cultures. The abscess cavity was approximately 10 x 5 cm on the medial thigh down to the fascia. It was then washed with 900 cc of Irrisept solution. Hemostasis was obtained with Bovie electrocautery. Attention was then turned to packing the wound with Dakins-soaked kerlix. The patient tolerated the procedure well and was awakened and taken the PACU in stable condition. ASA: 3 EBL: 20cc Anesthesia: local IVF: none UOP: unmeasured Specimens: Pathology (ulcer) for r/o malignancy or autoimmune disease. Also cultures from the cavity POST-OPERATIVE PLAN: F/u cultures. Pack wound with BID Dakins soaked Kerlix starting tomorrow morning.
--- NOTE | 2024-09-08 17:35 | NURSING ---
pt left floor for procedure.
[2024-09-08] MEDS: Lidocaine 1%/Epi 1:200 (30ml) 30 ML AMPUL ×2 (19:15)
[2024-09-08] MEDS: Sodium Hypochlorite (Dakin's) 0.125% Wound Irrigation IRRIGATION (20:11)
[2024-09-08] MEDS: Bupiv/Epi 0.25% 30 ML Vial (20:12)
[2024-09-08] MEDS: traMADol 50 MG Tablet PO (20:23)
[2024-09-08] MEDS: Ensure Plus High Protein 120 ML LIQUID PO (20:24)
[2024-09-08] MEDS: 0.9% Saline Lock 10 ML Syringe IV (21:46)
[2024-09-09] MEDS: Arthritis Pain Compound 60 CLICK TUBE TOPICAL ×2 (05:58→20:54)
[2024-09-09] MEDS: traMADol 50 MG Tablet PO ×2 (05:59→20:55)
[2024-09-09 06:00] VITALS: BP 91/59; PULSE 77; RESP 17; TEMP 36.5; O2SAT 95
[2024-09-09] MEDS: Gabapentin 300 MG Capsule PO ×3 (06:00→20:55)
[2024-09-09] MEDS: Enoxaparin 80 MG/0.8 ML Syringe SC ×2 (06:07→18:14)
[2024-09-09 07:57] VITALS: PULSE 87; RESP 14
[2024-09-09] MEDS: Budesonide Respules 0.5 MG/2 ML AMPUL.NEB. INHALATION ×2 (07:57→19:54)
[2024-09-09] MEDS: Lactobacillis Acidophilus 1 CAP PO (08:12)
[2024-09-09] MEDS: Ensure Plus High Protein 120 ML LIQUID PO ×3 (08:12→18:12)
[2024-09-09 08:13] VITALS: BP 101/55; PULSE 90
[2024-09-09] MEDS: Pantoprazole Sodium 40 MG Tablet PO (08:13)
[2024-09-09] MEDS: Montelukast 10 MG Tablet PO (08:13)
[2024-09-09] MEDS: predniSONE 10 MG Tablet PO (08:13)
[2024-09-09] MEDS: Metoprolol(XL)Succ 50 MG Tablet PO (08:13)
[2024-09-09] MEDS: Cholecalciferol (Vit D3) 125 MCG CAPSULE (5,000 UNITS) PO (08:14)
[2024-09-09] MEDS: Zinc Sulfate 50 mg zinc (220 mg) ORAL capsule PO (08:14)
[2024-09-09] MEDS: Cyanocobalamin 500 MCG Tablet PO (08:14)
[2024-09-09 08:30] VITALS: BP 108/56; PULSE 70
[2024-09-09 09:02] LABS: Anion Gap 6 (5-15); BUN 18 mg/dL (7-18); BUN/Creat Ratio 18.4 RATIO (10-20); Calcium,Total 9.6 mg/dL (8.5-10.1); Chloride 104 mmol/L (98-107); Creatinine, Serum 0.98 mg/dL (0.70-1.30); EST Glomerular Filtration Rate 80 mL/min (>60); Est Glom Filt Rate - Afr Amer 97 mL/min (>60); Estimated Creatinine Clearance 71.39 ml/min; Glucose 122 mg/dL (74-106); Potassium 3.7 mmol/L (3.5-5.1); Sodium Level 136 mmol/L (136-145)
--- NOTE | 2024-09-09 09:03 | PCM.PN.SRG ---
Subjective Subjective Doing well post op this morning. Pain controlled. No drainage/bleeding overnight. Objective Data Objective Data Vital Signs: Vital Signs Temp Pulse Resp BP Pulse Ox O2 Del Method O2 Flow Rate 97.7 F L 90 14 101/55 L 95 Room Air 1 09/09/24 06:00 09/09/24 08:13 09/09/24 07:57 09/09/24 08:13 09/09/24 06:00 09/09/24 06:00 09/04/24 08:34 Oxygen Flow Rate (L/min) 1 Oxygen Delivery Method Room Air Weight: 175 lb 7.807 oz Body Mass Index (BMI) 25.1 Intake & Output: Intake and Output for Last 24 Hours 09/07/24 09/08/24 09/09/24 23:59 23:59 23:59 Intake Total 1540 / 1540 1540 / 1590 400 / 400 Output Total 1050 / 1050 725 / 725 375 / 375 Balance 490 / 490 815 / 865 Medical Nutrition Assessment Dietitian: Malnutrition Criteria Met Start: 08/31/24 15:18 Freq: Status: Active Protocol: Document 08/31/24 15:18 SB (Rec: 08/31/24 15:18 SB [id number]) Nutrition Malnutrition Evidence of Malnutrition Exists Yes Malnutrition (severe): Acute Illness/Injury Evidenced By Suboptimal Energy Intake ( Severe),Weight Loss (Severe) Intake Problem Increased Nutrient Needs (specify) Etiology protein related to wound healing Signs/Symptoms as evidenced by boil on left inner thigh. Status Active Problem Clinical Problem Acute Disease or Injury Related Malnutrition Etiology severe malnutrition related to inadequate oral intake Signs/Symptoms as evidenced by 3% unintentional weight loss x 1 week and meeting <75% of estimated energy intake x 2 months. Status Active Problem Recommendation Dietitian Recommendations/Changes Continue liberal regular diet d/t signs and symptoms of malnutrition. Continue 120ml ensure plus high protein TID with medpass and Shay BID with medpass. Will adjust diet to cardiac diet, as appetite improves. Will adjust ONS, as appetite improves. Will monitor weight, as available. Reviewed and approved by Aniyah Powell, RD, LD. Lab / Micro Data 09/07/24 14:13 09/09/24 07:54 Labs: Laboratory Results - last 24 hr 09/08/24 10:15: S.aureus Protein A PCR NEGATIVE, MRSA (PCR) Negative 09/09/24 07:54: Sodium 136, Potassium 3.7, Chloride 104, Carbon Dioxide 26.0, Anion Gap 6, BUN 18, Creatinine 0.98, Estim Creat Clear Calc 71.39, Est GFR (MDRD) Af Amer 97, Est GFR (MDRD) Non-Af 80, BUN/Creatinine Ratio 18.4, Glucose 122 H, Calcium 9.6 Micro: Microbiology 09/09/24 06:15 Stool Stool Occult Blood (SHRUTI) - Final Physical Exam Narrative Left medial thigh examined. Packing removed. No bleeding and no purulent drainage. Wound open for packing. Re-packed. Assessment & Plan Assessment/Plan (1) Abscess of left thigh: PLAN: S/p I&D left thigh abscess Expected course. Twice daily Dakins soaked kerlix dresing changes by the nursing staff. I talked to the primary physician extensively yesterday afternoon about the patient's current condition and concern for autoimmune vasculitis and autoimmune myositis. They would like a muscle biopsy as they believe there is potential for antisynthetase activity. I told him that was an appropriate to do the muscle biopsy through the abscess as this could see the muscle, and therefore recommended that we do it electively from the contralateral thigh in the upcoming week. They were in agreement with this plan. I talked to the patient extensively about muscle biopsy from the proximal muscle groups of the right thigh (quadriceps muscles). I talked to him and his about damage to surrounding structures including nerves, bleeding, pain in the muscle, loss of strength. We talked about risk benefits and alternatives. They understand the reasons for tissue sampling. I talked to them about infection. I talked to them about the risk of anesthesia including blood clots (his Caprini score is 3 for this upcoming muscle biopsy) and . I also talked to him about heart failure in the setting of his recent A-fib with RVR and induction of anesthesia. They were accepting of the risks and wanted to proceed. I will discuss with the pathologist appropriate size of muscle biopsy and tissue handling after the biopsy from the operating room. Primary team is going to put him on Lovenox bridge for anticipated muscle biopsy surgery. Plan for muscle biopsy from right quadriceps on Wednesday, 12 Sep 2024. Charges/Coding Procedures Integumentary [id number]: [id number] Global Visit
[2024-09-09] MEDS: 0.9% Saline Lock 10 ML Syringe IV ×2 (10:03→20:56)
[2024-09-09] MEDS: levoFLOXacin IV 500 MG/100 ML BAG 100 MG IV (10:03)
[2024-09-09 18:00] VITALS: BP 106/57; PULSE 89; RESP 18; TEMP 37.2; O2SAT 94
[2024-09-09 19:54] VITALS: PULSE 67; RESP 20
[2024-09-10] VITALS (8 sets, daily range): BP systolic 86–108; BP diastolic 46–71; PULSE 80–95; RESP 16–18; TEMP 36.4–37; O2SAT 94
[2024-09-10] MEDS: Gabapentin 300 MG Capsule PO ×3 (05:43→21:31)
[2024-09-10] MEDS: Enoxaparin 80 MG/0.8 ML Syringe SC ×2 (05:43→17:13)
[2024-09-10] MEDS: Arthritis Pain Compound 60 CLICK TUBE TOPICAL ×2 (05:45→21:31)
--- NOTE | 2024-09-10 06:39 | NURSING ---
Mild shortness of breath noted with exertion this am. Resolves at rest. Patient states it was because he had to urinate. Encouraged use of incentive spirometer.
--- NOTE | 2024-09-10 06:48 | NURSING ---
Late Entry; 09/09 1950; Pt returned from I and D procedure. Dressing dry and intact. Pain rated at a 4/10. Will continue to monitor pt.
[2024-09-10 07:25] LABS: Absolute Lymphocyte Count 0.47 X10^3/uL (0.83-4.51); Absolute Neutrophil Count 15.7 X10^3/uL (2.0-7.7); Basophil# 0.07 X10^3/uL; Basophil% 0.4 % (0-1); Eosinophil# 0.03 X10^3/uL; Eosinophils% 0.2 % (0-5); Hematocrit 41.4 % (40-54); Hemoglobin 12.8 g/dL (13.0-16.5); Lymphocyte # 0.47 X10^3/ul (0.83-4.51); Lymphocyte % 2.7 % (19-41); Mean Corp Hgb Conc 30.9 g/dL (32-36); Mean Corpuscular Volume 93.9 fL (80-94); Mean Platelet Vol. 8.8 fl (6.2-12.0); Monocyte# 1.25 X10^3/uL; Monocyte% 7.1 % (0-10); NRBC Flagged by Analyzer 0 % (0-5); Neutrophil # 15.73 X10^3/uL (2.7-7.7); Neutrophil % 88.8 % (47-70); POSITIVE DIFFERENTIAL YES; Platelet Count 323 K/mm3 (150-450); RBC Distribution Width CV 15.6 % (11.6-14.6); RBC Distribution Width SD 53.5 fl (35.1-43.9); Red Blood Count 4.41 M/mm3 (4.6-6.2); White Blood Count 17.7 K/mm3 (4.4-11.0)
[2024-09-10 07:34] LABS: Anion Gap 5 (5-15); BUN 18 mg/dL (7-18); Calcium,Total 9.3 mg/dL (8.5-10.1); Chloride 105 mmol/L (98-107); Creatinine, Serum 0.95 mg/dL (0.70-1.30); EST Glomerular Filtration Rate 83 mL/min (>60); Est Glom Filt Rate - Afr Amer 101 mL/min (>60); Estimated Creatinine Clearance 73.64 ml/min; Glucose 92 mg/dL (74-106); Sodium Level 138 mmol/L (136-145)
[2024-09-10] MEDS: traMADol 50 MG Tablet PO (07:42)
[2024-09-10] MEDS: predniSONE 10 MG Tablet PO (07:43)
[2024-09-10] MEDS: Cholecalciferol (Vit D3) 125 MCG CAPSULE (5,000 UNITS) PO (07:43)
[2024-09-10] MEDS: Pantoprazole Sodium 40 MG Tablet PO (07:43)
[2024-09-10] MEDS: Zinc Sulfate 50 mg zinc (220 mg) ORAL capsule PO (07:43)
[2024-09-10] MEDS: Cyanocobalamin 500 MCG Tablet PO (07:43)
[2024-09-10] MEDS: Montelukast 10 MG Tablet PO (07:43)
[2024-09-10] MEDS: 0.9% Saline Lock 10 ML Syringe IV (07:43)
[2024-09-10] MEDS: Lactobacillis Acidophilus 1 CAP PO (07:43)
[2024-09-10] MEDS: Ensure Plus High Protein 120 ML LIQUID PO ×3 (07:46→17:13)
[2024-09-10 08:27] LABS: Erythrocyte Sedimentation Rate 40 mm/hr (0-20)
[2024-09-10] MEDS: levoFLOXacin IV 500 MG/100 ML BAG 100 MG IV (10:03)
[2024-09-10] MEDS: Budesonide Respules 0.5 MG/2 ML AMPUL.NEB. INHALATION (18:51)
--- NOTE | 2024-09-10 19:03 | NURSING ---
Dr Arteaga called and notified of acid fast lab results, received and read-back order for: Azithromycin 500mg PO daily.
[2024-09-10] MEDS: Azithromycin 250 MG Tablet 500 MG PO (21:31)
[2024-09-11 05:00] VITALS: BP 116/54; PULSE 94; RESP 20; TEMP 36.8; O2SAT 92
[2024-09-11] MEDS: Enoxaparin 80 MG/0.8 ML Syringe SC (06:15)
[2024-09-11] MEDS: Arthritis Pain Compound 60 CLICK TUBE TOPICAL ×2 (06:16→21:28)
[2024-09-11] MEDS: Gabapentin 300 MG Capsule PO ×3 (06:16→21:28)
[2024-09-11] MEDS: Acetaminophen 325 MG Tablet 650 MG PO (06:21)
[2024-09-11] MEDS: Cholecalciferol (Vit D3) 125 MCG CAPSULE (5,000 UNITS) PO (07:56)
[2024-09-11] MEDS: predniSONE 10 MG Tablet PO ×2 (07:56→09:30)
[2024-09-11] MEDS: Cyanocobalamin 500 MCG Tablet PO (07:56)
[2024-09-11] MEDS: Smz/Tmp Ds Tablet 1 TABLET PO (07:56)
[2024-09-11] MEDS: Lactobacillis Acidophilus 1 CAP PO (07:56)
[2024-09-11] MEDS: Pantoprazole Sodium 40 MG Tablet PO (07:56)
[2024-09-11] MEDS: Montelukast 10 MG Tablet PO (07:56)
[2024-09-11] MEDS: Zinc Sulfate 50 mg zinc (220 mg) ORAL capsule PO (07:56)
[2024-09-11] MEDS: Ensure Plus High Protein 120 ML LIQUID PO ×3 (07:57→17:14)
--- NOTE | 2024-09-11 07:57 | PN_ITS ---
Subjective Subjective Postop day #3-status post I&D of left medial thigh abscess Patient was seen on team rounds today. Day #4 Levaquin Day #2 azithromycin Afebrile VSS -blood pressure was on the low side yesterday and ranged from 86/46 to 100/53. Blood pressure this a.m. is 116/54. Heart rate is in the 90s. Maintaining appropriate oxygen saturation on RA-92 to 94% Oral intake - FOOD ate 75 to 100% of all his meals yesterday. FLUIDS good Discussed with nursing - no problems that need addressed Reviewed the THERAPY notes Medication list reviewed. Had 2 doses of tramadol on Wednesday and only 1 dose yesterday and that was in the AM. Stool for occult blood is negative. The wound culture drawn on Wednesday prior to I&D had no growth aerobically. Fungal culture on the wound/tissue specimen is pending. AFB smear is positive for 3+ acid-fast bacilli and culture is pending Wound culture done at the time of the surgery has no growth. There were 1+ white blood cells. Shorty tells me that he does not want to proceed with the muscle biopsy. He tells me that he is sleeping well. Tramadol is effective for controlling the pain in the L medial thigh. the pain in the R thigh is better........Gabapentin was increased on Wednesday. Aldolase is still pending. Denies CP, SOB, change in cough. No N/V/abd pain. No calf pain. Reviewed the op report from Dr. Kaba. the abscess cavity was 10/5 cm and extended down to the fascia. Objective Data Objective Data Vital Signs: Vital Signs Temp Pulse Resp BP Pulse Ox O2 Del Method O2 Flow Rate 98.3 F 94 20 H 116/54 L 92 Room Air 1 09/11/24 05:00 09/11/24 05:00 09/11/24 05:00 09/11/24 05:00 09/11/24 05:00 09/11/24 05:00 09/04/24 08:34 Oxygen Flow Rate (L/min) 1 Oxygen Delivery Method Room Air Weight: 175 lb 7.807 oz Body Mass Index (BMI) 25.1 Intake & Output: Intake and Output for Last 24 Hours 09/09/24 09/10/24 09/11/24 23:59 23:59 23:59 Intake Total 1800 / 2330 2029 120 / 120 Output Total 1300 / 1575 1450 / 1450 525 / 525 Balance 500 / 755 580 / 580 -405 / -405 Medical Nutrition Assessment Dietitian: Malnutrition Criteria Met Start: 08/31/24 15:18 Freq: Status: Active Protocol: Document 08/31/24 15:18 SB (Rec: 08/31/24 15:18 SB [id number]) Nutrition Malnutrition Evidence of Malnutrition Exists Yes Malnutrition (severe): Acute Illness/Injury Evidenced By Suboptimal Energy Intake ( Severe),Weight Loss (Severe) Intake Problem Increased Nutrient Needs (specify) Etiology protein related to wound healing Signs/Symptoms as evidenced by boil on left inner thigh. Status Active Problem Clinical Problem Acute Disease or Injury Related Malnutrition Etiology severe malnutrition related to inadequate oral intake Signs/Symptoms as evidenced by 3% unintentional weight loss x 1 week and meeting <75% of estimated energy intake x 2 months. Status Active Problem Recommendation Dietitian Recommendations/Changes Continue liberal regular diet d/t signs and symptoms of malnutrition. Continue 120ml ensure plus high protein TID with medpass and Shay BID with medpass. Will adjust diet to cardiac diet, as appetite improves. Will adjust ONS, as appetite improves. Will monitor weight, as available. Reviewed and approved by Aniyah Powell, JAIRON, LD. Lab / Micro Data 09/10/24 07:15 09/10/24 07:15 Labs: Laboratory Results - last 24 hr 09/10/24 07:15: WBC 17.7 H, RBC 4.41 L, Hgb 12.8 L, Hct 41.4, MCV 93.9, MCH 29.0, MCHC 30.9 L, RDW Std Deviation 53.5 H, RDW Coeff of Opal 15.6 H, Plt Count 323, MPV 8.8, Immature Gran % (Auto) 0.800, Neut % (Auto) 88.8 H, Lymph % (Auto) 2.7 L, [place] % (Auto) 7.1, Eos % (Auto) 0.2, Baso % (Auto) 0.4, Absolute Neuts (auto) 15.7 H, Absolute Lymphs (auto) 0.47 L, Nucleated RBC % 0, ESR 40 H Micro: Microbiology 09/08/24 20:00 Wound Abcess - Aerobic & Anaerobic Swabs Gram Stain - Final 09/08/24 20:00 Wound Abcess - Aerobic & Anaerobic Swabs Wound Culture - Preliminary No growth-Final to follow 09/08/24 20:00 Tissue - Leg, Left Gram Stain - Final 09/08/24 20:00 Tissue - Leg, Left Wound Culture - Preliminary No growth-Final to follow 09/08/24 10:15 Wound Abcess - Leg, Left Gram Stain - Final 09/08/24 10:15 Wound Abcess - Leg, Left Wound Culture - Final No growth aerobically. 09/08/24 19:38 Tissue - Leg, Left Fungal Culture - Preliminary 09/08/24 20:00 Tissue - Leg, Left Acid Fast Bacilli Smear - Final 09/08/24 20:00 Tissue - Leg, Left Acid Fast Bacilli Culture - Preliminary 09/09/24 06:15 Stool Stool Occult Blood (SHRUTI) - Final Physical Exam Const alert, oriented x3 and no apparent distress Constitutional Narrative: pleasant General Appearance: cooperative HEENT moist oral mucous membranes HEENT Narrative: No thrush Resp clear to auscultation bilaterally Resp Narrative: Diminished in the bases. No crackles or wheezes. Effort and Inspection: Negative for tachypneic or respiratory distress Cardio regular rate, regular rhythm and no gallops GI normal to inspection, nondistended, normoactive bowel sounds, soft to palpation and non-tender Extremity Extremity Narrative: has some swelling in the LUE from the elbow to the hand. No pain with palpation of the LUE. Had no pain with palpation of the R anterior thigh today or the Quadriceps tendon attachment at the knee. NO ankle edema General Extremity: edema left upper extremity Skin Wound Narrative: The medial thigh wound on the left is open and being packed. There is a small amount of thin serous drainage. No odor. No du-incisional erythema. Assessment & Plan Assessment/Plan (1) Debility: (2) Abscess of left thigh: PLAN: tissue/wound specimen with AF bacilli (3) Antisynthetase syndrome: (4) Ambulatory dysfunction: (5) Shingles: QUALIFIERS: Herpes zoster complications: unspecified herpes zoster complication Qualified Code(s): B02.8 - Zoster with other complications (6) Interstitial lung disease: (7) Steroid dependence: (8) Left thigh pain: (9) Generalized weakness: (10) Left upper extremity swelling: PLAN: Plan 1. Continue therapy 2. Consult Dr. 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 3. Increase the Prednisone to 20 mg daily X 3 days and then 15 mg X 3 days and then decrease to 10 mg (baseline dose) 4. Continue Levaquin and azithromycin until he is seen by Dr. Alicia. 5. CBC with diff and BMP in the AM 6. Decrease metoprolol to 25 mg every morning. 7. Venous US of the LUE Charges/Coding Visit Charges Inpatient E&M: 60519 Subs Hosp L1
[2024-09-11 08:03] VITALS: BP 95/48; PULSE 87
[2024-09-11] MEDS: Metoprolol(XL)Succ 50 MG Tablet PO (08:03)
[2024-09-11] MEDS: levoFLOXacin 500 MG Tablet PO (08:08)
--- NOTE | 2024-09-11 08:53 | NURSING ---
pt refusing Shay, states it makes him nauseated.
--- NOTE | 2024-09-11 13:22 | CASEMGMT ---
Social Work IDT met with patient and for Team meeting. Discussed patient's progress in PT/OT/SN. Educated to [employer] insurance with NRD 09/13 and continued stay is not guaranteed with each review. Pt has significant wound care that will need to be taught how to manage if pt DCs home prior to further healing. is intervening and pt needs to make further improvements prior to DC. SW will continue to follow for DC planning. Susanna Marcum, SERVICES COORDINATOR [employer] OPERATOR
[2024-09-11] MEDS: 0.9% Saline Lock 10 ML Syringe IV (14:23)
--- NOTE | 2024-09-11 14:38 | VDUE_ITS ---
Reason For Study: Edema LUE Left Proximal Left jugular vein is spontaneous, widely patent, phasic, with no intraluminal echogenicity noted. Left subclavian vein is spontaneous, widely patent, phasic, with no intraluminal echogenicity noted. Left Arm Left axillary vein is spontaneous, patent, phasic, competent, compressible and demonstrates augmentation. Left brachial vein is compressible. Left cephalic vein is compressible. Left basilic vein is compressible. Left Lower Arm Left radial vein is compressible. Left ulnar vein is compressible. VL/Venous Duplex US, Unilateral Interpretation Summary Deep veins of the left upper extremity are patent and compressible segmentally. There is no evidence of deep vein thrombosis. The superficial veins of the left upper extremity, the basilic and cephalic vein, are patent and compressible. There is no evidence of left upper extremity superficial thrombophlebitis involving the veins imaged. Ordering Physician: Verónica Arteaga Referring Physician: Tanya Pettit Performed By: Erika Hanson, DRAKE, RVT ???
[2024-09-11 16:10] LABS: Aldolase 6.2 U/L (3.3-10.3)
--- NOTE | 2024-09-11 17:11 | PCM.PN.SRG ---
Subjective Subjective Patient doing well today. Endorses great dressing changes by nursing staff. No fevers chills. Objective Data Objective Data Vital Signs: Vital Signs Temp Pulse Resp BP Pulse Ox O2 Del Method O2 Flow Rate 98.3 F 87 20 H 95/48 L 92 Room Air 1 09/11/24 05:00 09/11/24 08:03 09/11/24 05:00 09/11/24 08:03 09/11/24 05:00 09/11/24 05:00 09/04/24 08:34 Oxygen Flow Rate (L/min) 1 Oxygen Delivery Method Room Air Weight: 175 lb 7.807 oz Body Mass Index (BMI) 25.1 Intake & Output: Intake and Output for Last 24 Hours 09/09/24 09/10/24 09/11/24 23:59 23:59 23:59 Intake Total 1800 / 2330 2030 / 2030 340 / 340 Output Total 1300 / 1575 1450 / 1450 1375 / 1375 Balance 500 / 755 580 / 580 -1035 / -1035 Medical Nutrition Assessment Dietitian: Malnutrition Criteria Met Start: 08/31/24 15:18 Freq: Status: Active Protocol: Document 08/31/24 15:18 SB (Rec: 08/31/24 15:18 SB [id number]) Nutrition Malnutrition Evidence of Malnutrition Exists Yes Malnutrition (severe): Acute Illness/Injury Evidenced By Suboptimal Energy Intake ( Severe),Weight Loss (Severe) Intake Problem Increased Nutrient Needs (specify) Etiology protein related to wound healing Signs/Symptoms as evidenced by boil on left inner thigh. Status Active Problem Clinical Problem Acute Disease or Injury Related Malnutrition Etiology severe malnutrition related to inadequate oral intake Signs/Symptoms as evidenced by 3% unintentional weight loss x 1 week and meeting <75% of estimated energy intake x 2 months. Status Active Problem Recommendation Dietitian Recommendations/Changes Continue liberal regular diet d/t signs and symptoms of malnutrition. Continue 120ml ensure plus high protein TID with medpass and Shay BID with medpass. Will adjust diet to cardiac diet, as appetite improves. Will adjust ONS, as appetite improves. Will monitor weight, as available. Reviewed and approved by Aniyah Powell RD, LD. Lab / Micro Data 09/10/24 07:15 09/10/24 07:15 Labs: Laboratory Results - last 24 hr 09/07/24 14:13: Aldolase 6.2 Micro: Microbiology 09/08/24 20:00 Wound Abcess - Aerobic & Anaerobic Swabs Gram Stain - Final 09/08/24 20:00 Wound Abcess - Aerobic & Anaerobic Swabs Wound Culture - Final No growth aerobically. 09/08/24 20:00 Wound Abcess - Aerobic & Anaerobic Swabs Anaerobic Culture - Preliminary No growth in 48 hours. 09/08/24 20:00 Tissue - Leg, Left Gram Stain - Final 09/08/24 20:00 Tissue - Leg, Left Wound Culture - Final No growth aerobically. 09/08/24 20:00 Tissue - Leg, Left Anaerobic Culture - Preliminary No growth in 48 hours. 09/08/24 10:15 Wound Abcess - Leg, Left Gram Stain - Final 09/08/24 10:15 Wound Abcess - Leg, Left Wound Culture - Final No growth aerobically. 09/08/24 19:38 Tissue - Leg, Left Fungal Culture - Preliminary 09/08/24 20:00 Tissue - Leg, Left Acid Fast Bacilli Smear - Final 09/08/24 20:00 Tissue - Leg, Left Acid Fast Bacilli Culture - Preliminary 09/09/24 06:15 Stool Stool Occult Blood (SHRUTI) - Final Physical Exam Narrative Left medial thigh examined. No bleeding and no purulent drainage. No surrounding erythema/drainage. Const alert and oriented x3 Assessment & Plan Assessment/Plan (1) Left thigh pain: PLAN: PSU will continue to follow for wound/abscess. Continue Dakins BID dressing changes. I talked to the patient about right thigh muscle biopsy (requested by medicine team). He is not interested in this at this time. I talked about risks and benefits. We will defer this procedure unless he changes his mind. Charges/Coding Procedures Integumentary [id number]: [id number] Global Visit
[2024-09-11 17:33] VITALS: BP 105/59; PULSE 85; RESP 19; TEMP 37.2; O2SAT 94
--- NOTE | 2024-09-11 20:03 | CON.PCM.ID_ITS ---
Assessment & Plan Assessment/Plan (1) Abscess of left thigh: PLAN: I&D by Dr. Kaba 09/08/24. Surg cx AFB (+). Will wait on cx data. Will stop levaquin. Cont bactrim for prophylaxis. Will follow, thank you (2) Interstitial lung disease: HPI Consult Data Date of Consult: 09/11/24 HPI Narrative Reason for Consultation: abscess HPI Narrative: YARON BUTLER, is a 73 M with ILD on MMF, bactrim for proph, c/o 2 months L thigh nonhealing wound. No known inciting event, no animal exposures, no hot tubs, no swimming, no bug bites to the area. Reports neg PPD in the past. Last foreign travel was [place] about a year ago. Saw PCP, given course of abx without any improvement. Given augmentin at discharge earlier this month without improvement. Recently had some increased redness, drainage, tenderness. No fever or chills. Admitted to [facility], I&D 09/08/[address] Kaba, now at rehab unit, on levaquin and azithro. Full ROS performed and neg except as noted above. [facility] Medical History Steroid dependence Antisynthetase syndrome History of shingles Shingles Abscess of left thigh BOOP (bronchiolitis obliterans with organizing pneumonia) Wears glasses High cholesterol Easy bruising Back pain Injury of head and neck Blackout Gastric reflux Non-smoker On home oxygen therapy Hoarseness Chronic cough History of echocardiogram Hypertension History of stress test Cardiology follow-up encounter History of atrial fibrillation Atrial fibrillation COVID-19 Osteoporosis Kidney stones Atrial fibrillation RBBB (right bundle branch block) Antisynthetase syndrome Essential hypertension Mixed hyperlipidemia Asthma Interstitial lung disease GERD (gastroesophageal reflux disease) Fatty liver BPH (benign prostatic hyperplasia) Lung nodule Vasovagal syncope Abnormal cardiac CT angiography Home Medications ?Medication ?Instructions ?Recorded ?Last Taken ?Type cyanocobalamin (vitamin B-12) 500 500 mcg PO DAILY vitamin 07/14/21 Unknown History mcg tablet denosumab 60 mg/mL subcutaneous 60 mg subcut [id number] low calcuim 07/14/21 Unknown History syringe (Prolia) pantoprazole 40 mg tablet,delayed 40 mg PO DAILY reflux 07/14/21 08/30/24 History release budesonide 0.5 mg/2 mL suspension 0.5 mg inhalation BID sob 01/01/22 08/30/24 History for nebulization (Pulmicort) cetirizine 10 mg tablet (Zyrtec) 10 mg PO DAILY PRN allergies 01/01/22 08/30/24 History cholecalciferol (vitamin D3) 75 150 mcg PO DAILY vitamin 01/01/22 08/30/24 History mcg (3,000 unit) tablet lactobacillus combination no.9 4 4,000 mmu cells PO DAILY supplement 01/01/22 08/30/24 History billion cell capsule (Adult 50 Plus Probiotic) zinc gluconate 30 mg tablet 30 mg PO DAILY supplement 01/01/22 08/30/24 History montelukast 10 mg tablet 10 mg PO DAILY allergies 05/12/23 08/30/24 History (Singulair) mycophenolate mofetil 500 mg tablet 3,000 mg PO BID AUTOIMMUNE DISEASE 05/12/23 Unknown History prednisone 1 mg tablet 10 mg PO DAILY inflammation 12/09/23 08/30/24 History gabapentin 100 mg capsule 100 mg PO TID nerve pain 08/22/24 08/30/24 History apixaban 5 mg tablet (Eliquis) 5 mg PO BID blood thinner 30 days 08/24/24 08/30/24 Rx #60 tabs levofloxacin 750 mg tablet 750 mg PO DAILY ATB #5 tabs 08/30/24 Unknown Rx metoprolol succinate 50 mg 50 mg PO DAILY Blood pressure #0 08/30/24 08/30/24 Rx tablet,extended release 24 hr tabs sulfamethoxazole 800 1 tab PO .MWF ATB #1 TAB 08/30/24 Unknown Rx mg-trimethoprim 160 mg tablet (Bactrim DS) Allergy/AdvReac Type Severity Reaction Status Date / Time monosodium glutamate Allergy Abd Verified 08/28/24 16:56 cramps/diarrhea Penicillins (PCN) Allergy Rash Verified 08/28/24 16:56 allopurinol AdvReac Unknown cough Verified 08/28/24 16:56 morphine AdvReac Other Verified 08/28/24 16:56 tamsulosin (From Flomax) AdvReac Other Verified 08/28/24 16:56 Family History Grandfather CVA (cerebral vascular accident) Grandmother Congestive heart failure Grandmother Cardiac pacemaker in situ Mother Heart disease Hypertension Father Heart disease Cardiac arrhythmia Surgical History History of incision and drainage Hx of cystoscopy History of umbilical hernia repair History of inguinal hernia repair Social History household members: spouse Smoking Status: Never smoker alcohol intake: current details: Rare substance use type: does not use caffeine: Yes Type: coffee Number of servings: 1 Physical Exam Const alert, oriented x3 and no apparent distress General Appearance: cooperative HEENT normocephalic and head/scalp atraumatic Eyes PERRL and EOMs intact bilaterally Neck supple and No nodes Resp clear to auscultation bilaterally Auscultation: diminished lung sounds Cardio regular rate and regular rhythm GI soft to palpation, non-tender and non-distended Extremity General Extremity: Negative for edema Skin Skin Narrative: reviewed photos Neuro CN's II-XII intact bilaterally Medical Records Data Medical Nutrition Assessment Dietitian: Malnutrition Criteria Met Start: 08/31/24 15:18 Freq: Status: Active Protocol: Document 08/31/24 15:18 SB (Rec: 08/31/24 15:18 SB [id number]) Nutrition Malnutrition Evidence of Malnutrition Exists Yes Malnutrition (severe): Acute Illness/Injury Evidenced By Suboptimal Energy Intake ( Severe),Weight Loss (Severe) Intake Problem Increased Nutrient Needs (specify) Etiology protein related to wound healing Signs/Symptoms as evidenced by boil on left inner thigh. Status Active Problem Clinical Problem Acute Disease or Injury Related Malnutrition Etiology severe malnutrition related to inadequate oral intake Signs/Symptoms as evidenced by 3% unintentional weight loss x 1 week and meeting <75% of estimated energy intake x 2 months. Status Active Problem Recommendation Dietitian Recommendations/Changes Continue liberal regular diet d/t signs and symptoms of malnutrition. Continue 120ml ensure plus high protein TID with medpass and Shay BID with medpass. Will adjust diet to cardiac diet, as appetite improves. Will adjust ONS, as appetite improves. Will monitor weight, as available. Reviewed and approved by Aniyah Powell RD, LD. Lab / Micro Data Attestation: I reviewed the patient's lab results. 09/10/24 07:15 09/10/24 07:15 Labs: Laboratory Results - last 24 hr 09/07/24 14:13: Aldolase 6.2 Micro: Microbiology 09/08/24 20:00 Wound Abcess - Aerobic & Anaerobic Swabs Gram Stain - Final 09/08/24 20:00 Wound Abcess - Aerobic & Anaerobic Swabs Wound Culture - Final No growth aerobically. 09/08/24 20:00 Wound Abcess - Aerobic & Anaerobic Swabs Anaerobic Culture - Preliminary No growth in 48 hours. 09/08/24 20:00 Tissue - Leg, Left Gram Stain - Final 09/08/24 20:00 Tissue - Leg, Left Wound Culture - Final No growth aerobically. 09/08/24 20:00 Tissue - Leg, Left Anaerobic Culture - Preliminary No growth in 48 hours. 09/08/24 10:15 Wound Abcess - Leg, Left Gram Stain - Final 09/08/24 10:15 Wound Abcess - Leg, Left Wound Culture - Final No growth aerobically.
[2024-09-11 21:10] VITALS: PULSE 89; RESP 18
[2024-09-11] MEDS: Budesonide Respules 0.5 MG/2 ML AMPUL.NEB. INHALATION (21:10)
[2024-09-11] MEDS: Azithromycin 250 MG Tablet 500 MG PO (21:28)
[2024-09-11 22:00] VITALS: PULSE 85; RESP 17; O2SAT 95
[2024-09-11] MEDS: traMADol 50 MG Tablet PO (22:02)
[2024-09-12] MEDS: Arthritis Pain Compound 60 CLICK TUBE TOPICAL ×2 (05:55→21:12)
[2024-09-12] MEDS: Gabapentin 300 MG Capsule PO ×3 (05:55→21:14)
[2024-09-12] MEDS: 0.9% Saline Lock 10 ML Syringe IV (05:55)
[2024-09-12 06:20] VITALS: BP 95/61; PULSE 68; RESP 15; TEMP 36.6; O2SAT 93
[2024-09-12 06:24] VITALS: O2SAT 91
[2024-09-12] MEDS: Budesonide Respules 0.5 MG/2 ML AMPUL.NEB. INHALATION ×2 (07:07→19:48)
[2024-09-12] MEDS: predniSONE 10 MG Tablet 15 MG PO (07:35)
[2024-09-12] MEDS: APIXABAN 5 MG TABLET PO ×2 (07:35→21:15)
[2024-09-12] MEDS: Pantoprazole Sodium 40 MG Tablet PO (07:35)
[2024-09-12] MEDS: Montelukast 10 MG Tablet PO (07:36)
[2024-09-12] MEDS: Cholecalciferol (Vit D3) 125 MCG CAPSULE (5,000 UNITS) PO (07:36)
[2024-09-12] MEDS: Ensure Plus High Protein 120 ML LIQUID PO ×3 (07:36→16:25)
[2024-09-12] MEDS: Cyanocobalamin 500 MCG Tablet PO (07:36)
[2024-09-12] MEDS: Zinc Sulfate 50 mg zinc (220 mg) ORAL capsule PO (07:36)
[2024-09-12] MEDS: Lactobacillis Acidophilus 1 CAP PO (07:36)
[2024-09-12 07:37] VITALS: PULSE 63
[2024-09-12 07:41] LABS: Hematocrit 45.6 % (40-54); Hemoglobin 14.2 g/dL (13.0-16.5); Red Blood Count 4.82 M/mm3 (4.6-6.2); White Blood Count 17.4 K/mm3 (4.4-11.0)
[2024-09-12 07:42] LABS: Basophil% 0.5 % (0-1); Eosinophils% 0.3 % (0-5); Lymphocyte % 4.4 % (19-41); Mean Corp Hgb Conc 31.1 g/dL (32-36); Mean Corpuscular Hgb 29.5 pg (27.0-32.0); Mean Corpuscular Volume 94.6 fL (80-94); Mean Platelet Vol. 8.8 fl (6.2-12.0); Monocyte% 6.7 % (0-10); Neutrophil # 15.03 X10^3/uL (2.7-7.7); Neutrophil % 86.7 % (47-70); Platelet Count 351 K/mm3 (150-450); RBC Distribution Width CV 15.8 % (11.6-14.6); RBC Distribution Width SD 53.6 fl (35.1-43.9)
[2024-09-12 07:43] LABS: Absolute Lymphocyte Count 0.77 X10^3/uL (0.83-4.51); Basophil# 0.09 X10^3/uL; Eosinophil# 0.05 X10^3/uL; Lymphocyte # 0.77 X10^3/ul (0.83-4.51); Monocyte# 1.16 X10^3/uL
[2024-09-12 08:20] LABS: Anion Gap 7 (5-15); BUN 17 mg/dL (7-18); BUN/Creat Ratio 15.3 RATIO (10-20); Calcium,Total 9.9 mg/dL (8.5-10.1); Chloride 104 mmol/L (98-107); Creatinine, Serum 1.11 mg/dL (0.70-1.30); EST Glomerular Filtration Rate 69 mL/min (>60); Est Glom Filt Rate - Afr Amer 84 mL/min (>60); Estimated Creatinine Clearance 63.03 ml/min; Glucose 92 mg/dL (74-106); Potassium 4.2 mmol/L (3.5-5.1); Sodium Level 136 mmol/L (136-145)
--- NOTE | 2024-09-12 09:43 | PN_ITS ---
Subjective Subjective Day #3 azithromycin. Close was discontinued by Dr. Alicia yesterday. Afebrile VSS -blood pressure over the past 24 hours has ranged from 95/48 to 116/54. Heart rate is ranged from 63-89. The metoprolol dose has been decreased to 25 mg daily. Will hold if systolic is less than 100. Maintaining appropriate oxygen saturation on RA Oral intake - FOOD intake continues to be erratic. Sometimes eating 75 to 100% of his meal and at other times doing 25 to 49%. FLUIDS poor yesterday but good for the few days prior to that. Discussed with nursing - no problems that need addressed Reviewed the THERAPY notes - advanced to a cane today. Medication list reviewed. All lab drawn this morning was personally reviewed. The white blood cell count is 17.4......... this may be influenced by the increase in prednisone to 20 mg daily temporarily for stress caused by infection and recent surgery. There is a left shift present. Hemoglobin is 14.2. Sodium is 136 and the potassium is 4.2. Creatinine is 1.11 today which is within his baseline over the past year. Aldolase was normal at 6.2. Son has ankylosing spondylitis..........+ hx of his mothers side of the family. I reviewed Dr. Alicia's consult and appreciate his input. Awaiting culture results. Pain is adequately controlled with tramadol. Denies lightheadedness, cephalgia, shortness of breath, chest pain, palpitations, nausea/vomiting/abdominal pain, soreness in his mouth, painful swallowing, dysuria and calf tenderness. Objective Data Objective Data Vital Signs: Vital Signs Temp Pulse Resp BP Pulse Ox O2 Del Method O2 Flow Rate 97.9 F 63 15 95/61 91 Room Air 1 09/12/24 06:20 09/12/24 07:37 09/12/24 06:20 09/12/24 06:20 09/12/24 06:24 09/12/24 06:20 09/04/24 08:34 Oxygen Flow Rate (L/min) 1 Oxygen Delivery Method Room Air Weight: 175 lb 7.807 oz Body Mass Index (BMI) 25.1 Intake & Output: Intake and Output for Last 24 Hours 09/10/24 09/11/24 09/12/24 23:59 23:59 23:59 Intake Total 2030 / 2030 840 / 840 200 / 200 Output Total 1450 / 1450 1625 / 1625 400 / 400 Balance 580 / 580 -785 / -785 -200 / -200 Medical Nutrition Assessment Dietitian: Malnutrition Criteria Met Start: 08/31/24 15:18 Freq: Status: Active Protocol: Document 08/31/24 15:18 SB (Rec: 08/31/24 15:18 SB [id number]) Nutrition Malnutrition Evidence of Malnutrition Exists Yes Malnutrition (severe): Acute Illness/Injury Evidenced By Suboptimal Energy Intake ( Severe),Weight Loss (Severe) Intake Problem Increased Nutrient Needs (specify) Etiology protein related to wound healing Signs/Symptoms as evidenced by boil on left inner thigh. Status Active Problem Clinical Problem Acute Disease or Injury Related Malnutrition Etiology severe malnutrition related to inadequate oral intake Signs/Symptoms as evidenced by 3% unintentional weight loss x 1 week and meeting <75% of estimated energy intake x 2 months. Status Active Problem Recommendation Dietitian Recommendations/Changes Continue liberal regular diet d/t signs and symptoms of malnutrition. Continue 120ml ensure plus high protein TID with medpass and Shay BID with medpass. Will adjust diet to cardiac diet, as appetite improves. Will adjust ONS, as appetite improves. Will monitor weight, as available. Reviewed and approved by Aniyah Powell, JAIRON, LD. Lab / Micro Data 09/12/24 07:28 09/12/24 07:28 Labs: Laboratory Results - last 24 hr 09/07/24 14:13: Aldolase 6.2 09/12/24 07:28: WBC 17.4 H, RBC 4.82, Hgb 14.2, Hct 45.6, MCV 94.6 H, MCH 29.5, MCHC 31.1 L, RDW Std Deviation 53.6 H, RDW Coeff of Opal 15.8 H, Plt Count 351, MPV 8.8, Immature Gran % (Auto) 1.400 H, Neut % (Auto) 86.7 H, Lymph % (Auto) 4.4 L, [place] % (Auto) 6.7, Eos % (Auto) 0.3, Baso % (Auto) 0.5, Absolute Neuts (auto) 15.0 H, Absolute Lymphs (auto) 0.77 L, Sodium 136, Potassium 4.2, Chloride 104, Carbon Dioxide 25.0, Anion Gap 7, BUN 17, Creatinine 1.11, Estim Creat Clear Calc 63.03, Est GFR (MDRD) Af Amer 84, Est GFR (MDRD) Non-Af 69, BUN/Creatinine Ratio 15.3, Glucose 92, Calcium 9.9 Micro: Microbiology 09/08/24 20:00 Wound Abcess - Aerobic & Anaerobic Swabs Gram Stain - Final 09/08/24 20:00 Wound Abcess - Aerobic & Anaerobic Swabs Wound Culture - Final No growth aerobically. 09/08/24 20:00 Wound Abcess - Aerobic & Anaerobic Swabs Anaerobic Culture - Preliminary No growth in 48 hours. 09/08/24 20:00 Tissue - Leg, Left Gram Stain - Final 09/08/24 20:00 Tissue - Leg, Left Wound Culture - Final No growth aerobically. 09/08/24 20:00 Tissue - Leg, Left Anaerobic Culture - Preliminary No growth in 48 hours. 09/08/24 10:15 Wound Abcess - Leg, Left Gram Stain - Final 09/08/24 10:15 Wound Abcess - Leg, Left Wound Culture - Final No growth aerobically. 09/08/24 19:38 Tissue - Leg, Left Fungal Culture - Preliminary 09/08/24 20:00 Tissue - Leg, Left Acid Fast Bacilli Smear - Final 09/08/24 20:00 Tissue - Leg, Left Acid Fast Bacilli Culture - Preliminary 09/09/24 06:15 Stool Stool Occult Blood (SHRUTI) - Final Physical Exam Const alert and no apparent distress General Appearance: cooperative Resp clear to auscultation bilaterally Auscultation: diminished lung sounds Cardio regular rate and regular rhythm GI soft to palpation, non-tender and non-distended Extremity General Extremity: Negative for edema Psych Psych Narrative: Seems more upbeat today. He now sees that he is progressing in therapy and getting stronger. Appearance: appropriate Attitude: No agitated Activity / Motor Behavior: Negative for restless Assessment & Plan Assessment/Plan (1) Debility: (2) Abscess of left thigh: PLAN: tissue/wound specimen with AF bacilli (3) Antisynthetase syndrome: (4) Ambulatory dysfunction: (5) Interstitial lung disease: (6) Steroid dependence: (7) Generalized weakness: (8) Left upper extremity swelling: (9) Severe protein-energy malnutrition: PLAN: Plan 1. Continue therapy-he is making good progress and is now using a cane to ambulate. 2. Continue azithromycin 3. Aldolase is negative making polymyositis less likely. I still suspect he has another autoimmune disease in addition to ILD. I suspect the infection that has been smoldering for 2 month in addition to recent COVID contributed significantly to the rapid decline in his condition. Severe Malnutrition and chronic disease are likely contributing as well. 4. Continue the steroid taper. 5. Will need to follow-up with Dr. Alicia post discharge. Charges/Coding Visit Charges Inpatient E&M: 70882 Subs Hosp L1
[2024-09-12 17:10] VITALS: BP 106/68; PULSE 91; RESP 18; TEMP 37.1; O2SAT 100
[2024-09-12 19:48] VITALS: PULSE 100; RESP 18
[2024-09-12] MEDS: traMADol 50 MG Tablet PO (20:48)
[2024-09-12] MEDS: Azithromycin 250 MG Tablet 500 MG PO (21:12)
[2024-09-12] MEDS: Senna/Docusate Sodium 1 Tablet 2 TABLET PO (21:14)
[2024-09-12 22:00] VITALS: PULSE 91; RESP 16; O2SAT 94
[2024-09-13 05:54] VITALS: BMI 25.3
[2024-09-13] MEDS: Arthritis Pain Compound 60 CLICK TUBE TOPICAL ×2 (06:00→21:06)
[2024-09-13] MEDS: Gabapentin 300 MG Capsule PO ×3 (06:01→21:06)
[2024-09-13 06:10] VITALS: BP 129/70; PULSE 79; RESP 16; TEMP 36.3; O2SAT 93
[2024-09-13 07:07] VITALS: PULSE 117; RESP 18
[2024-09-13] MEDS: Budesonide Respules 0.5 MG/2 ML AMPUL.NEB. INHALATION ×2 (07:07→18:50)
[2024-09-13] MEDS: Senna/Docusate Sodium 1 Tablet 2 TABLET PO ×2 (08:11→21:09)
[2024-09-13] MEDS: Zinc Sulfate 50 mg zinc (220 mg) ORAL capsule PO (08:11)
[2024-09-13 08:12] VITALS: BP 129/70; PULSE 96
[2024-09-13] MEDS: Smz/Tmp Ds Tablet 1 TABLET PO (08:12)
[2024-09-13] MEDS: APIXABAN 5 MG TABLET PO ×2 (08:12→21:06)
[2024-09-13] MEDS: Metoprolol(XL)Succ 25 MG Tablet PO (08:12)
[2024-09-13] MEDS: Pantoprazole Sodium 40 MG Tablet PO (08:12)
[2024-09-13] MEDS: Montelukast 10 MG Tablet PO (08:12)
[2024-09-13] MEDS: Lactobacillis Acidophilus 1 CAP PO (08:12)
[2024-09-13] MEDS: predniSONE 10 MG Tablet 15 MG PO (08:12)
[2024-09-13] MEDS: Cyanocobalamin 500 MCG Tablet PO (08:12)
[2024-09-13] MEDS: Cholecalciferol (Vit D3) 125 MCG CAPSULE (5,000 UNITS) PO (08:12)
[2024-09-13] MEDS: Ensure Plus High Protein 120 ML LIQUID PO ×3 (08:13→14:52)
[2024-09-13] MEDS: traMADol 50 MG Tablet PO (11:18)
--- NOTE | 2024-09-13 12:52 | PN.SURG_ITS ---
<Statement entered by Chuckie Kaba MD - 09/13/24 20:33> I have personally performed a face to face assessment of the patient and have reviewed the LIANA Note. Subjective Subjective Postop day #5 Patient is doing well. He has pain with the dressing changes. He and his have concerns about them changing the dressings when he is discharged home. Objective Data Objective Data Vital Signs: Vital Signs Temp Pulse Resp BP Pulse Ox O2 Del Method O2 Flow Rate 97.4 F L 96 18 129/70 H 93 Room Air 1 09/13/24 06:10 09/13/24 08:12 09/13/24 07:07 09/13/24 08:12 09/13/24 06:10 09/13/24 06:10 09/04/24 08:34 Oxygen Flow Rate (L/min) 1 Oxygen Delivery Method Room Air Weight: 177 lb 4.026 oz Body Mass Index (BMI) 25.3 Intake & Output: Intake and Output for Last 24 Hours 09/11/24 09/12/24 09/13/24 23:59 23:59 23:59 Intake Total 840 / 840 1440 / 1440 Output Total 1625 / 1625 1400 / 1400 380 / 380 Balance -785 / -785 40 / 40 -380 / -380 Medical Nutrition Assessment Dietitian: Malnutrition Criteria Met Start: 08/31/24 15:18 Freq: Status: Active Protocol: Document 08/31/24 15:18 SB (Rec: 08/31/24 15:18 SB [id number]) Nutrition Malnutrition Evidence of Malnutrition Exists Yes Malnutrition (severe): Acute Illness/Injury Evidenced By Suboptimal Energy Intake ( Severe),Weight Loss (Severe) Intake Problem Increased Nutrient Needs (specify) Etiology protein related to wound healing Signs/Symptoms as evidenced by boil on left inner thigh. Status Active Problem Clinical Problem Acute Disease or Injury Related Malnutrition Etiology severe malnutrition related to inadequate oral intake Signs/Symptoms as evidenced by 3% unintentional weight loss x 1 week and meeting <75% of estimated energy intake x 2 months. Status Active Problem Recommendation Dietitian Recommendations/Changes Continue liberal regular diet d/t signs and symptoms of malnutrition. Continue 120ml ensure plus high protein TID with medpass and Shay BID with medpass. Will adjust diet to cardiac diet, as appetite improves. Will adjust ONS, as appetite improves. Will monitor weight, as available. Reviewed and approved by Aniyah Powell RD, HARR[place]. Lab / Micro Data Attestation: I reviewed the patient's lab results. 09/12/24 07:28 09/12/24 07:28 Micro: Microbiology 09/08/24 20:00 Wound Abcess - Aerobic & Anaerobic Swabs Gram Stain - Final 09/08/24 20:00 Wound Abcess - Aerobic & Anaerobic Swabs Wound Culture - Final No growth aerobically. 09/08/24 20:00 Wound Abcess - Aerobic & Anaerobic Swabs Anaerobic Culture - Preliminary No growth in 48 hours. 09/08/24 20:00 Tissue - Leg, Left Gram Stain - Final 09/08/24 20:00 Tissue - Leg, Left Wound Culture - Final No growth aerobically. 09/08/24 20:00 Tissue - Leg, Left Anaerobic Culture - Preliminary No growth in 48 hours. 09/08/24 10:15 Wound Abcess - Leg, Left Gram Stain - Final 09/08/24 10:15 Wound Abcess - Leg, Left Wound Culture - Final No growth aerobically. 09/08/24 19:38 Tissue - Leg, Left Fungal Culture - Preliminary 09/08/24 20:00 Tissue - Leg, Left Acid Fast Bacilli Smear - Final 09/08/24 20:00 Tissue - Leg, Left Acid Fast Bacilli Culture - Preliminary 09/09/24 06:15 Stool Stool Occult Blood (SHRUTI) - Final Radiography Diagnostic Testing: Radiology Impression Venous Doppler Study 09/11/24 14:38 Interpretation Summary Deep veins of the left upper extremity are patent and compressible segmentally. There is no evidence of deep vein thrombosis. The superficial veins of the left upper extremity, the basilic and cephalic vein, are patent and compressible. There is no evidence of left upper extremity superficial thrombophlebitis involving the veins imaged. Ordering Physician: Verónica Arteaga Referring Physician: Tanya Pettit Performed By: Erika Hanson, DRAKE, RVT ??? Physical Exam Narrative Left medial thigh wound is beefy pink with granulation tissue. There is some undermining around 10:00. Const alert and oriented x3 General Appearance: cooperative HEENT normocephalic Eyes General Eye: normal appearance of both eyes Resp normal respiratory effort and normal air movement Effort and Inspection: able to speak in complete sentences Cardio regular rate Back/Spine normal ROM Extremity normal capillary refill Neuro oriented x3 Psych mental status grossly normal and cooperative Assessment & Plan Assessment/Plan (1) Left thigh pain: PLAN: Plan Spoke with Dr. Arteaga about her concerns about the undermining getting deeper. Overall wound is beefy pink with granulation tissue present. After speaking with Dr. Kaba, will start a wound VAC with black foam at 125 mmHg to be change 3 times per week. Patient and his are not comfortable doing the wound care at this time. When he goes home, will have home health come into the home to assist with the wound VAC dressing changes. Upon discharge, he will follow up with either Dr. Kaba or myself at the wound healing center for his wound care management. Dr. Alicia is consulted and managing antibiotics. Patient is currently on Bactrim for operative culture AFB(+). Encouraged protein supplementation for wound healing. He is prescribed Shay. Charges/Coding Procedures Integumentary 111xxx-113xx: 12552 Global Visit
--- NOTE | 2024-09-13 15:18 | WOUNDNOTE ---
wound photo: left medial thigh
[2024-09-13 17:49] VITALS: BP 100/59; PULSE 86; RESP 16; TEMP 36.4; O2SAT 94
[2024-09-13 18:50] VITALS: PULSE 67; RESP 16
[2024-09-13 19:35] VITALS: PULSE 85; RESP 16
[2024-09-13] MEDS: Azithromycin 250 MG Tablet 500 MG PO (21:08)
[2024-09-14] VITALS (7 sets, daily range): BP systolic 75–109; BP diastolic 39–57; PULSE 56–98; RESP 17–18; TEMP 36.6–36.9; O2SAT 92–95
[2024-09-14] MEDS: Arthritis Pain Compound 60 CLICK TUBE TOPICAL ×2 (06:28→21:02)
[2024-09-14] MEDS: Gabapentin 300 MG Capsule PO ×3 (06:28→21:10)
[2024-09-14] MEDS: Budesonide Respules 0.5 MG/2 ML AMPUL.NEB. INHALATION (07:31)
[2024-09-14] MEDS: Cyanocobalamin 500 MCG Tablet PO (08:03)
[2024-09-14] MEDS: Senna/Docusate Sodium 1 Tablet 2 TABLET PO (08:04)
[2024-09-14] MEDS: Zinc Sulfate 50 mg zinc (220 mg) ORAL capsule PO (08:04)
[2024-09-14] MEDS: predniSONE 10 MG Tablet 15 MG PO (08:04)
[2024-09-14] MEDS: Pantoprazole Sodium 40 MG Tablet PO (08:04)
[2024-09-14] MEDS: Cholecalciferol (Vit D3) 125 MCG CAPSULE (5,000 UNITS) PO (08:04)
[2024-09-14] MEDS: APIXABAN 5 MG TABLET PO ×2 (08:04→21:04)
[2024-09-14] MEDS: Montelukast 10 MG Tablet PO (08:04)
[2024-09-14] MEDS: Metoprolol(XL)Succ 25 MG Tablet PO (08:04)
[2024-09-14] MEDS: Amiodarone 200 MG Tablet PO ×2 (08:04→21:03)
[2024-09-14] MEDS: Lactobacillis Acidophilus 1 CAP PO (08:04)
[2024-09-14] MEDS: Ensure Plus High Protein 120 ML LIQUID PO (08:05)
--- NOTE | 2024-09-14 10:32 | PCM.PROGNOTE ---
Subjective Subjective Day 5 azithromycin Afebrile VSS - + orthostatics today. Encouraged to increase fluid intake. Responded to increased fluid intake in the past. Denies lightheadedness. Maintaining appropriate oxygen saturation on RA Oral intake - FOOD fair to good FLUIDS - nurses documented intake of 860 only yesterday but, pt tells me that he is drinking a lot of fluid? Wt is stable Discussed with nursing - no problems that need addressed Reviewed the THERAPY notes Medication list reviewed. Taking tramadol occasionally once a day. Not tolerating the Shay......got nauseated. I was notified by cardiology yesterday afternoon that he is having AF intermittently since the Metoprolol dose was decreased due to hypotension. He was started on amiodarone 200 mg daily. Wound vac was applied yesterday. Denies CP, SOB, lightheadedness, calf pain, dysuria. Pain is controlled with PRN Tramadol. Objective Data Objective Data Vital Signs: Vital Signs Temp Pulse Resp BP Pulse Ox O2 Del Method O2 Flow Rate 97.8 F 73 18 109/56 L 92 Room Air 1 09/14/24 06:00 09/14/24 08:04 09/14/24 07:30 09/14/24 08:04 09/14/24 06:00 09/14/24 06:00 09/04/24 08:34 Oxygen Flow Rate (L/min) 1 Oxygen Delivery Method Room Air Weight: 177 lb 4.026 oz Body Mass Index (BMI) 25.3 Intake & Output: Intake and Output for Last 24 Hours 09/12/24 09/13/24 09/14/24 23:59 23:59 23:59 Intake Total 1440 / 1440 860 / 1210 590 / 590 Output Total 1400 / 1400 830 / 980 900 / 900 Balance 40 / 40 30 / 230 -310 / -310 Medical Nutrition Assessment Dietitian: Malnutrition Criteria Met Start: 08/31/24 15:18 Freq: Status: Active Protocol: Document 08/31/24 15:18 SB (Rec: 08/31/24 15:18 SB [id number]) Nutrition Malnutrition Evidence of Malnutrition Exists Yes Malnutrition (severe): Acute Illness/Injury Evidenced By Suboptimal Energy Intake ( Severe),Weight Loss (Severe) Intake Problem Increased Nutrient Needs (specify) Etiology protein related to wound healing Signs/Symptoms as evidenced by boil on left inner thigh. Status Active Problem Clinical Problem Acute Disease or Injury Related Malnutrition Etiology severe malnutrition related to inadequate oral intake Signs/Symptoms as evidenced by 3% unintentional weight loss x 1 week and meeting <75% of estimated energy intake x 2 months. Status Active Problem Recommendation Dietitian Recommendations/Changes Continue liberal regular diet d/t signs and symptoms of malnutrition. Continue 120ml ensure plus high protein TID with medpass and Shay BID with medpass. Will adjust diet to cardiac diet, as appetite improves. Will adjust ONS, as appetite improves. Will monitor weight, as available. Reviewed and approved by Aniyah Powell, RD, LD. Lab / Micro Data 09/12/24 07:28 09/12/24 07:28 Micro: Microbiology 09/08/24 20:00 Wound Abcess - Aerobic & Anaerobic Swabs Gram Stain - Final 09/08/24 20:00 Wound Abcess - Aerobic & Anaerobic Swabs Wound Culture - Final No growth aerobically. 09/08/24 20:00 Wound Abcess - Aerobic & Anaerobic Swabs Anaerobic Culture - Final No growth in 5 days. 09/08/24 20:00 Tissue - Leg, Left Gram Stain - Final 09/08/24 20:00 Tissue - Leg, Left Wound Culture - Final No growth aerobically. 09/08/24 20:00 Tissue - Leg, Left Anaerobic Culture - Final No growth in 5 days. 09/08/24 10:15 Wound Abcess - Leg, Left Gram Stain - Final 09/08/24 10:15 Wound Abcess - Leg, Left Wound Culture - Final No growth aerobically. 09/08/24 19:38 Tissue - Leg, Left Fungal Culture - Preliminary 09/08/24 20:00 Tissue - Leg, Left Acid Fast Bacilli Smear - Final 09/08/24 20:00 Tissue - Leg, Left Acid Fast Bacilli Culture - Preliminary 09/09/24 06:15 Stool Stool Occult Blood (SHRUTI) - Final Physical Exam Const alert Constitutional Narrative: appear more fatigued today HEENT HEENT Narrative: small amount of yellow adherent exudate on the lateral tongue....denies mouth pain, bad taste in the mouth and painful swallowing. Tongue is reddened Mouth: dry mucous membranes Resp normal respiratory effort and clear to auscultation bilaterally Effort and Inspection: Negative for tachypneic Cardio Cardio Narrative: rapid irregular rhythm EKG shows AF with HR of 127 BMP. Extremity no calf tenderness General Extremity: Negative for edema Skin Skin Narrative: wound vac is in place. Assessment & Plan Assessment/Plan (1) Debility: (2) Abscess of left thigh: PLAN: tissue/wound specimen with AF bacilli (3) Antisynthetase syndrome: (4) Ambulatory dysfunction: (5) Interstitial lung disease: (6) Steroid dependence: (7) Generalized weakness: (8) Left upper extremity swelling: (9) Severe protein-energy malnutrition: (10) PAF (paroxysmal atrial fibrillation): (11) Orthostatic hypotension: PLAN: Plan 1. Continue therapy 2. Encouraged increased fluid intake today. Orthostatic hypotension may be related to the uncontrolled ventricular response with recurrent PAF. Discussed with cardiology and will increase the amiodarone to 200 mg twice daily x 10 doses and then decrease back to 200 mg daily 3. Recheck orthostatics in the AM. 4. He is afebrile and when I examined the wound yesterday there was no purulent discharge, odor or du-incisional erythema. He denies dysuria. He has had no change in his cough recently. I doubt that the hypotension is due to infection at this time. Hemoglobin was 14.2 on 09/12/2024 which was up from 12.8 on 09/10/2024. Needs constant encouragement to increase his fluid intake. 5. Continue azithromycin. AFB culture will not be available for another 5 weeks. 6. EKG today shows no significant QT prolongation. 7. I suspect he may be developing thrush and may need to start nystatin or Mycelex. Will recheck his mucous membranes tomorrow. Charges/Coding Visit Charges Inpatient E&M: 45791 Subs Hosp L2
--- NOTE | 2024-09-14 10:49 | EKG12_ITS ---
Test Reason : afib Blood Pressure : */* mmHG Vent. Rate : 84 BPM Atrial Rate : 84 BPM P-R Int : 126 ms QRS Dur : 124 ms QT Int : 394 ms P-R-T Axes : 22 -56 -14 degrees QTcB Int : 465 ms Sinus rhythm with Premature supraventricular complexes Right bundle branch block Left anterior fascicular block Bifascicular block Abnormal ECG Confirmed by Shiva Dia ([id number]), editor producer ASIYA JACKSON ([id number]) on 09/26/2024 9:25:28 AM Referred By: Carlton Joyner Confirmed By: Shiva Dia
[2024-09-14] MEDS: Azithromycin 250 MG Tablet 500 MG PO (21:02)
[2024-09-14] MEDS: traMADol 50 MG Tablet PO (21:02)
[2024-09-15 06:00] VITALS: BP 103/50; BP 110/68; BP 116/48; PULSE 78; PULSE 82; PULSE 88; RESP 17; TEMP 36.7; O2SAT 92
[2024-09-15] MEDS: Gabapentin 300 MG Capsule PO ×3 (06:31→21:21)
[2024-09-15] MEDS: Arthritis Pain Compound 60 CLICK TUBE TOPICAL ×2 (06:32→21:20)
[2024-09-15 08:11] VITALS: BP 110/68; PULSE 88
[2024-09-15] MEDS: Metoprolol(XL)Succ 25 MG Tablet PO (08:11)
[2024-09-15] MEDS: Zinc Sulfate 50 mg zinc (220 mg) ORAL capsule PO (08:11)
[2024-09-15] MEDS: Cholecalciferol (Vit D3) 125 MCG CAPSULE (5,000 UNITS) PO (08:11)
[2024-09-15] MEDS: Lactobacillis Acidophilus 1 CAP PO (08:11)
[2024-09-15] MEDS: Smz/Tmp Ds Tablet 1 TABLET PO (08:12)
[2024-09-15] MEDS: Montelukast 10 MG Tablet PO (08:12)
[2024-09-15] MEDS: predniSONE 10 MG Tablet 15 MG PO (08:12)
[2024-09-15] MEDS: Amiodarone 200 MG Tablet PO ×2 (08:12→21:21)
[2024-09-15] MEDS: APIXABAN 5 MG TABLET PO ×2 (08:12→21:21)
[2024-09-15] MEDS: Pantoprazole Sodium 40 MG Tablet PO (08:13)
[2024-09-15] MEDS: Cyanocobalamin 500 MCG Tablet PO (08:13)
[2024-09-15] MEDS: Ensure Plus High Protein 120 ML LIQUID PO ×2 (08:14→12:08)
[2024-09-15] MEDS: traMADol 50 MG Tablet PO (13:01)
--- NOTE | 2024-09-15 15:41 | PCM.PROGNOTE ---
Subjective Subjective Afebrile VSS -orthostatics are negative today. No tachycardia. Maintaining appropriate oxygen saturation on RA Oral intake - FOOD improving FLUIDS improving. He took in 1070 cc yesterday and so far today is already had 1400. Discussed with nursing - no problems that need addressed Reviewed the THERAPY notes Medication list reviewed. Tells me he is feeling much better today and he denies lightheadedness. He has more energy. Sleeping well. Oral intake has improved with regard to food. He no longer has any meals that are 25 to 49%. Weight is stable. Denies any change of his occasional cough. Denies shortness of breath. Denies chest pain, nausea/vomiting/abdominal pain, dysuria and calf pain. Objective Data Objective Data Vital Signs: Vital Signs Temp Pulse Resp BP Pulse Ox O2 Del Method O2 Flow Rate 98.0 F 88 17 110/68 92 Room Air 1 09/15/24 06:00 09/15/24 08:11 09/15/24 06:00 09/15/24 08:11 09/15/24 06:00 09/15/24 06:00 09/04/24 08:34 Oxygen Flow Rate (L/min) 1 Oxygen Delivery Method Room Air Weight: 177 lb 4.026 oz Body Mass Index (BMI) 25.3 Intake & Output: Intake and Output for Last 24 Hours 09/13/24 09/14/24 09/15/24 23:59 23:59 23:59 Intake Total 860 / 1210 1070 / 1270 1400 / 1400 Output Total 830 / 980 1300 / 1500 350 / 350 Balance 30 / 230 -230 / -230 1050 / 1050 Medical Nutrition Assessment Dietitian: Malnutrition Criteria Met Start: 08/31/24 15:18 Freq: Status: Active Protocol: Document 08/31/24 15:18 SB (Rec: 08/31/24 15:18 SB [id number]) Nutrition Malnutrition Evidence of Malnutrition Exists Yes Malnutrition (severe): Acute Illness/Injury Evidenced By Suboptimal Energy Intake ( Severe),Weight Loss (Severe) Intake Problem Increased Nutrient Needs (specify) Etiology protein related to wound healing Signs/Symptoms as evidenced by boil on left inner thigh. Status Active Problem Clinical Problem Acute Disease or Injury Related Malnutrition Etiology severe malnutrition related to inadequate oral intake Signs/Symptoms as evidenced by 3% unintentional weight loss x 1 week and meeting <75% of estimated energy intake x 2 months. Status Active Problem Recommendation Dietitian Recommendations/Changes Continue liberal regular diet d/t signs and symptoms of malnutrition. Continue 120ml ensure plus high protein TID with medpass and Shay BID with medpass. Will adjust diet to cardiac diet, as appetite improves. Will adjust ONS, as appetite improves. Will monitor weight, as available. Reviewed and approved by Aniyah Powell, RD, LD. Lab / Micro Data 09/12/24 07:28 09/12/24 07:28 Micro: Microbiology 09/08/24 20:00 Wound Abcess - Aerobic & Anaerobic Swabs Gram Stain - Final 09/08/24 20:00 Wound Abcess - Aerobic & Anaerobic Swabs Wound Culture - Final No growth aerobically. 09/08/24 20:00 Wound Abcess - Aerobic & Anaerobic Swabs Anaerobic Culture - Final No growth in 5 days. 09/08/24 20:00 Tissue - Leg, Left Gram Stain - Final 09/08/24 20:00 Tissue - Leg, Left Wound Culture - Final No growth aerobically. 09/08/24 20:00 Tissue - Leg, Left Anaerobic Culture - Final No growth in 5 days. 09/08/24 10:15 Wound Abcess - Leg, Left Gram Stain - Final 09/08/24 10:15 Wound Abcess - Leg, Left Wound Culture - Final No growth aerobically. 09/08/24 19:38 Tissue - Leg, Left Fungal Culture - Preliminary 09/08/24 20:00 Tissue - Leg, Left Acid Fast Bacilli Smear - Final 09/08/24 20:00 Tissue - Leg, Left Acid Fast Bacilli Culture - Preliminary 09/09/24 06:15 Stool Stool Occult Blood (SHRUTI) - Final Physical Exam Const alert and no apparent distress General Appearance: cooperative Resp normal respiratory effort and clear to auscultation bilaterally Effort and Inspection: Negative for tachypneic Cardio regular rate and regular rhythm Neuro Neuro Narrative: I examined the wound when the wound VAC was changed and it is doing well since the wound vac was placed. the base is filling in and there is no longer any visible fasic. the base of the wound has beefy red granulation tissue and there is no exudate. No du-incisional erythema. The size is decreased from when I examined on Wednesday and the undermining is less. No odor. . Assessment & Plan Assessment/Plan (1) Debility: (2) Abscess of left thigh: PLAN: tissue/wound specimen with AF bacilli (3) Antisynthetase syndrome: (4) Ambulatory dysfunction: (5) Interstitial lung disease: (6) Steroid dependence: (7) Generalized weakness: (8) Left upper extremity swelling: (9) Severe protein-energy malnutrition: (10) PAF (paroxysmal atrial fibrillation): (11) Orthostatic hypotension: PLAN: Plan 1. Continue therapy 2. Recheck labs including CMP, CBC, magnesium, phosphorus, ESR and CRP on Wednesday 3. Continue azithromycin. Charges/Coding Visit Charges Inpatient E&M: 14681 Subs Hosp L1
[2024-09-15 17:43] VITALS: BP 88/44; PULSE 95; RESP 17; TEMP 37.2; O2SAT 93
[2024-09-15 19:20] VITALS: PULSE 80; RESP 16
[2024-09-15] MEDS: Budesonide Respules 0.5 MG/2 ML AMPUL.NEB. INHALATION (19:20)
[2024-09-15] MEDS: Senna/Docusate Sodium 1 Tablet 2 TABLET PO (21:21)
[2024-09-15] MEDS: Azithromycin 250 MG Tablet 500 MG PO (21:21)
[2024-09-16] MEDS: Arthritis Pain Compound 60 CLICK TUBE TOPICAL ×2 (05:25→21:39)
[2024-09-16] MEDS: Gabapentin 300 MG Capsule PO ×3 (05:28→21:39)
[2024-09-16 06:00] VITALS: BP 111/72; PULSE 90; RESP 18; TEMP 36.4; O2SAT 95
[2024-09-16 07:15] VITALS: PULSE 56; RESP 16; O2SAT 93
[2024-09-16] MEDS: Budesonide Respules 0.5 MG/2 ML AMPUL.NEB. INHALATION ×2 (07:15→19:40)
[2024-09-16] MEDS: Lactobacillis Acidophilus 1 CAP PO (08:36)
[2024-09-16] MEDS: predniSONE 10 MG Tablet 15 MG PO (08:37)
[2024-09-16] MEDS: Amiodarone 200 MG Tablet PO ×2 (08:38→21:39)
[2024-09-16] MEDS: Pantoprazole Sodium 40 MG Tablet PO (08:38)
[2024-09-16] MEDS: APIXABAN 5 MG TABLET PO ×2 (08:38→21:39)
[2024-09-16] MEDS: Montelukast 10 MG Tablet PO (08:39)
[2024-09-16] MEDS: Cholecalciferol (Vit D3) 125 MCG CAPSULE (5,000 UNITS) PO (08:40)
[2024-09-16] MEDS: Zinc Sulfate 50 mg zinc (220 mg) ORAL capsule PO (08:41)
[2024-09-16] MEDS: Cyanocobalamin 500 MCG Tablet PO (08:42)
[2024-09-16 08:46] VITALS: BP 98/52; PULSE 82
[2024-09-16] MEDS: Ensure Plus High Protein 120 ML LIQUID PO (16:55)
[2024-09-16 18:00] VITALS: BP 97/62; PULSE 86; RESP 16; TEMP 37.2; O2SAT 94
[2024-09-16 19:40] VITALS: PULSE 60; RESP 16
[2024-09-16 21:30] VITALS: PULSE 86; RESP 86; O2SAT 95
[2024-09-16] MEDS: Azithromycin 250 MG Tablet 500 MG PO (21:39)
[2024-09-17] VITALS (7 sets, daily range): BP systolic 82–111; BP diastolic 45–60; PULSE 73–92; RESP 16–17; TEMP 36.9–37.2; O2SAT 93–94
[2024-09-17] MEDS: Gabapentin 300 MG Capsule PO ×3 (06:05→21:26)
[2024-09-17] MEDS: Arthritis Pain Compound 60 CLICK TUBE TOPICAL ×2 (06:05→21:22)
[2024-09-17] MEDS: Ensure Plus High Protein 120 ML LIQUID PO ×3 (07:51→17:01)
[2024-09-17] MEDS: Cholecalciferol (Vit D3) 125 MCG CAPSULE (5,000 UNITS) PO (07:51)
[2024-09-17] MEDS: Zinc Sulfate 50 mg zinc (220 mg) ORAL capsule PO (07:52)
[2024-09-17] MEDS: predniSONE 10 MG Tablet 15 MG PO (07:52)
[2024-09-17] MEDS: Pantoprazole Sodium 40 MG Tablet PO (07:53)
[2024-09-17] MEDS: APIXABAN 5 MG TABLET PO ×2 (07:54→21:26)
[2024-09-17] MEDS: Lactobacillis Acidophilus 1 CAP PO (07:55)
[2024-09-17] MEDS: Montelukast 10 MG Tablet PO (07:56)
[2024-09-17] MEDS: Amiodarone 200 MG Tablet PO ×2 (07:57→21:25)
[2024-09-17] MEDS: Cyanocobalamin 500 MCG Tablet PO (07:57)
[2024-09-17] MEDS: Metoprolol(XL)Succ 25 MG Tablet PO (07:59)
[2024-09-17] MEDS: Budesonide Respules 0.5 MG/2 ML AMPUL.NEB. INHALATION ×2 (10:41→19:12)
[2024-09-17] MEDS: Azithromycin 250 MG Tablet 500 MG PO (21:26)
[2024-09-18 06:00] VITALS: BP 102/48; BP 103/52; BP 109/56; PULSE 72; PULSE 79; PULSE 88; RESP 17; TEMP 36.8; O2SAT 92
[2024-09-18] MEDS: Gabapentin 300 MG Capsule PO ×3 (06:01→20:28)
[2024-09-18] MEDS: Arthritis Pain Compound 60 CLICK TUBE TOPICAL ×2 (06:01→20:28)
[2024-09-18 06:05] LABS: Hematocrit 40.1 % (40-54); Hemoglobin 12.7 g/dL (13.0-16.5); Mean Corp Hgb Conc 31.7 g/dL (32-36); Mean Corpuscular Hgb 29.6 pg (27.0-32.0); Mean Corpuscular Volume 93.5 fL (80-94); Mean Platelet Vol. 8.9 fl (6.2-12.0); Platelet Count 384 K/mm3 (150-450); RBC Distribution Width CV 15.5 % (11.6-14.6); RBC Distribution Width SD 53.3 fl (35.1-43.9); Red Blood Count 4.29 M/mm3 (4.6-6.2); White Blood Count 15.1 K/mm3 (4.4-11.0)
[2024-09-18 06:29] LABS: Erythrocyte Sedimentation Rate 45 mm/hr (0-20)
[2024-09-18] MEDS: traMADol 50 MG Tablet PO (06:46)
[2024-09-18 07:13] LABS: ALB/GLOB Ratio 0.6 RATIO (0.9-2.4); AST(SGOT) 13 U/L (15-37); Alanine Aminotransfer ALT/SGPT 33 U/L (16-61); Albumin, Serum 2.1 g/dL (3.2-5.0); Alkaline Phosphatase 54 U/L (45-117); Anion Gap 4 (5-15); BUN 17 mg/dL (7-18); Calcium,Total 9.6 mg/dL (8.5-10.1); Chloride 105 mmol/L (98-107); Creatinine, Serum 0.95 mg/dL (0.70-1.30); EST Glomerular Filtration Rate 83 mL/min (>60); Est Glom Filt Rate - Afr Amer 101 mL/min (>60); Estimated Creatinine Clearance 73.64 ml/min; Globulin 3.6 g/dL (2.2-4.2); Glucose 84 mg/dL (74-106); Magnesium 2.1 mg/dL (1.6-2.6); Phosphorus 2.9 mg/dL (2.5-4.9); Potassium 3.8 mmol/L (3.5-5.1); Protein, Total 5.7 g/dL (6.4-8.2); Sodium Level 137 mmol/L (136-145)
[2024-09-18 08:03] VITALS: BP 103/52; PULSE 72
[2024-09-18] MEDS: Metoprolol(XL)Succ 25 MG Tablet PO (08:03)
[2024-09-18] MEDS: APIXABAN 5 MG TABLET PO ×2 (08:03→20:28)
[2024-09-18] MEDS: Ensure Plus High Protein 120 ML LIQUID PO ×2 (08:04→16:52)
[2024-09-18] MEDS: Cholecalciferol (Vit D3) 125 MCG CAPSULE (5,000 UNITS) PO (08:04)
[2024-09-18] MEDS: Smz/Tmp Ds Tablet 1 TABLET PO (08:04)
[2024-09-18] MEDS: Lactobacillis Acidophilus 1 CAP PO (08:04)
[2024-09-18] MEDS: Cyanocobalamin 500 MCG Tablet PO (08:04)
[2024-09-18] MEDS: Montelukast 10 MG Tablet PO (08:04)
[2024-09-18] MEDS: Zinc Sulfate 50 mg zinc (220 mg) ORAL capsule PO (08:04)
[2024-09-18] MEDS: Amiodarone 200 MG Tablet PO ×2 (08:04→20:27)
[2024-09-18] MEDS: Pantoprazole Sodium 40 MG Tablet PO (08:04)
[2024-09-18] MEDS: predniSONE 10 MG Tablet PO (08:50)
--- NOTE | 2024-09-18 09:00 | PN_ITS ---
Subjective Subjective Afebrile. Seen on TEAM loretta today. was present in the room for rounds. VSS -blood pressure has improved since he is drinking more fluid. Heart rate is within normal limits. Orthostatics are negative today. Maintaining appropriate oxygen saturation on RA Oral intake - FOOD variable FLUIDS improved Discussed with nursing - no problems that need addressed Reviewed the THERAPY notes Medication list reviewed. Denies pain in the left medial thigh. He is complaining of pain in his right knee and his left hand. Pulse ox is within normal limits however both hands are cyanotic, left greater than right. All lab drawn this morning was personally reviewed. White blood cell count is 15.1 but, he is on prednisone 15 mg daily. Hemoglobin is 12.7 which is stable. It was 14.21 09/12/2024 however he was dehydrated at the time. Platelets are within normal limits. ESR is 45. Sodium is 137 and the potassium is stable at 3.8. The BUN is 17 and the creatinine is 0.95, down from 1.11 on 09/12/2024. Calcium, phosphorus and magnesium are all within normal limits. The CRP is 62 despite increased prednisone and appropriate antibiotic coverage for the acid- fast bacilli present in the Gram stain wound drainage. Past medical history is positive for essential hypertension, hyperlipidemia, fatty infiltration of the liver, ILD/antisynthetase syndrome, chronic immunosuppression with CellCept and prednisone, atrial fibrillation, chronic anticoagulation, nephrolithiasis, history of left thyroid nodule, BPH, GERD, osteoporosis, osteoarthritis, gout ( saw Dr. Fair at the [facility] once 6 years ago). Appetite is erratic. He had generalized weakness and very poor exercise. He has had falls. He has been incontinent of urine and stool. He is c/o pain in the R knee and the R anterior thigh. He is also c/o pain in the LUE. Recently was diagnosed with shingles affecting the LUE and is on Gabapentin. Still c/o pain in the LUE although the shingles vesicular lesions have resolved. He has had intermittent cyanosis of the nailbeds of both hands but, is only c/o pain in the ledft hand. the LUE was swollen but this has resolved. Venous US was negative for DVT. Had an abscess of the left medial thigh and was seen by general surgery on 07/20/24. He underwent I&D in the office and no cultures were sent. The wound to completely heal. On 08/22/24 he presented to the ED at [facility] c/o with worsening SOB. D-Dimer was WNL. Chest CTA revealed no evidence of pulmonary embolism or dissection. There was mild patchy bilateral ground glass opacities/infiltrates worse on the right side. He was empirically started on azithromycin and Rocephin and admitted to the hospital. He was seen by ID and Acyclovir was added to the drug regimen ( had been started on Valtrex as an OP and CellCept was placed on hold. He improved and was discharged home on 08/24/24. He was seen by his PCP and sent to the ED on 08/28/24 for failure to thrive/generalized weakness and non-healing left thigh wound/AF with RVR. His could not manage him at home. He denied fever/chills/nausea/vomiting/diarrhea. He was having urinary incontinence because he could not make it to the bathroom due to generalized weakness with gait instability. He was taking cefdinir and was afebrile. White blood cell count was elevated at 16.4 and a lactic acid was normal. The ER doctor reported that there was granulation tissue present in the left medial thigh wound with an area of induration around it. There was no erythema, increased warmth to touch or inguinal adenopathy. He was admitted to the hospital. Cardiology was consulted for recurrent PAF and metoprolol was increased to [address] scan of the left lower extremity showed a 3.2 cm x 0.7 cm x 1 cm area of overlying skin thickening with a subcentimeter focal area of possible necrosis/early abscess formation. General surgery was consulted and felt that the wound was healing. They felt there was no indication to pursue further debridement or surgical intervention. On 08/30/2024 he was admitted to the acute rehab unit at [facility] for 3 hours of therapy daily to restore function/independence at or near his level 3 months prior to admission. He had been progressively declining for approximately 3 months. While in the hospital he was diagnosed with severe malnutrition. The wound was not healing following admission to rehab and there was increasing L medial thigh pain with palpation with an enlarging area of thickening of the skin/induration. An US was obtained and showed subcutaneous fluid with maximal dimension of 4.2 x 0.9 cm. There was extension superficially to the skin surface. There was surrounding hyperemia. Dr Kaba from plastic surgery was consulted and he was taken to the OR on 09/08/24 for I&D was performed. The abscess cavity was 10X5 cm and extended down to the fascia. The wound was packed open. AF smear was + AFB culture is still pending. He was started on Levaquin empirically prior to the I&D and when the AFB stain came back + Azithromycin was added. The abscess fluid had 1+ WBC's and there was no anaerobic or aerobic growth in 5 days. ID was once again consulted. Levaquin was discontinued and he was left on Azithromycin. AFB culture is pending. Objective Data Objective Data Vital Signs: Vital Signs Temp Pulse Resp BP Pulse Ox O2 Del Method O2 Flow Rate 98.3 F 72 17 103/52 L 92 Room Air 1 09/18/24 06:00 09/18/24 08:03 09/18/24 06:00 09/18/24 08:03 09/18/24 06:00 09/18/24 06:00 09/04/24 08:34 Oxygen Flow Rate (L/min) 1 Oxygen Delivery Method Room Air Weight: 177 lb 4.026 oz Body Mass Index (BMI) 25.3 Intake & Output: Intake and Output for Last 24 Hours 09/16/24 09/17/24 09/18/24 23:59 23:59 23:59 Intake Total 1470 / 1470 1750 / 1750 340 / 340 Output Total 950 / 950 1695 / 1695 500 / 500 Balance 520 / 520 55 / 55 -160 / -160 Medical Nutrition Assessment Dietitian: Malnutrition Criteria Met Start: 08/31/24 15:18 Freq: Status: Active Protocol: Document 08/31/24 15:18 SB (Rec: 08/31/24 15:18 SB [id number]) Nutrition Malnutrition Evidence of Malnutrition Exists Yes Malnutrition (severe): Acute Illness/Injury Evidenced By Suboptimal Energy Intake ( Severe),Weight Loss (Severe) Intake Problem Increased Nutrient Needs (specify) Etiology protein related to wound healing Signs/Symptoms as evidenced by boil on left inner thigh. Status Active Problem Clinical Problem Acute Disease or Injury Related Malnutrition Etiology severe malnutrition related to inadequate oral intake Signs/Symptoms as evidenced by 3% unintentional weight loss x 1 week and meeting <75% of estimated energy intake x 2 months. Status Active Problem Recommendation Dietitian Recommendations/Changes Continue liberal regular diet d/t signs and symptoms of malnutrition. Continue 120ml ensure plus high protein TID with medpass and Shay BID with medpass. Will adjust diet to cardiac diet, as appetite improves. Will adjust ONS, as appetite improves. Will monitor weight, as available. Reviewed and approved by Aniyah Powell, RD, LD. Lab / Micro Data 09/18/24 05:17 09/18/24 05:17 Labs: Laboratory Results - last 24 hr 09/18/24 05:17: WBC 15.1 H, RBC 4.29 L, Hgb 12.7 L, Hct 40.1, MCV 93.5, MCH 29.6, MCHC 31.7 L, RDW Std Deviation 53.3 H, RDW Coeff of Opal 15.5 H, Plt Count 384, MPV 8.9, ESR 45 H, Sodium 137, Potassium 3.8, Chloride 105, Carbon Dioxide 28.0, Anion Gap 4 L, BUN 17, Creatinine 0.95, Estim Creat Clear Calc 73.64, Est GFR (MDRD) Af Amer 101, Est GFR (MDRD) Non-Af 83, BUN/Creatinine Ratio 18.0, Glucose 84, Calcium 9.6, Phosphorus 2.9, Magnesium 2.1, Total Bilirubin 0.60, A ST 13 L, ALT 33, Alkaline Phosphatase 54, C-React Prot Ext Range 62.00 H, Total Protein 5.7 L, Albumin 2.1 L, Globulin 3.6, Albumin/Globulin Ratio 0.6 L Micro: Microbiology 09/08/24 20:00 Wound Abcess - Aerobic & Anaerobic Swabs Gram Stain - Final 09/08/24 20:00 Wound Abcess - Aerobic & Anaerobic Swabs Wound Culture - Final No growth aerobically. 09/08/24 20:00 Wound Abcess - Aerobic & Anaerobic Swabs Anaerobic Culture - Final No growth in 5 days. 09/08/24 20:00 Tissue - Leg, Left Gram Stain - Final 09/08/24 20:00 Tissue - Leg, Left Wound Culture - Final No growth aerobically. 09/08/24 20:00 Tissue - Leg, Left Anaerobic Culture - Final No growth in 5 days. 09/08/24 10:15 Wound Abcess - Leg, Left Gram Stain - Final 09/08/24 10:15 Wound Abcess - Leg, Left Wound Culture - Final No growth aerobically. 09/08/24 19:38 Tissue - Leg, Left Fungal Culture - Preliminary 09/08/24 20:00 Tissue - Leg, Left Acid Fast Bacilli Smear - Final 09/08/24 20:00 Tissue - Leg, Left Acid Fast Bacilli Culture - Preliminary 09/09/24 06:15 Stool Stool Occult Blood (SHRUTI) - Final Physical Exam Const alert and no apparent distress Constitutional Narrative: He lies in bed most of the day when not in therapy and sleeps a lot of the time......day and night. HE does not get up to the bedside chair. He is irritable and has a very flat affect. He is having difficulty making decisions and seems to defer to his to make decisions. Appetite is erratic. He is sleeping through the night. At times he has been hypotensive due to poor fluid intake. BP dropped due to poor intake and Metoprolol had to be decreased to 25 mg BID. He then had recurrent AF with RVR and cardiology started him on amiodarone. Fatigues easily with therapy and can not tolerate 2 sessions back to back with PT/OT. HEENT HEENT Narrative: Taylor.s not have a whole lot of facial expression. Mouth: dry mucous membranes Resp Resp Narrative: few coarse crackles in the bases. Diminished, maame in the bases. No wheezes. No change in the cough Cardio regular rate, regular rhythm and no gallops GI normal to inspection, nondistended, normoactive bowel sounds, soft to palpation and non-tender Extremity no calf tenderness General Extremity: Negative for edema Psych Psych Narrative: Flat. Appears fatigued. Wanting to lay in bed a lot. I never see him out of bed unless he is doing therapy. Frequently sleeping during the day and he is sleeping well at night. Assessment & Plan Assessment/Plan (1) Debility: (2) Abscess of left thigh: PLAN: tissue/wound specimen with AF bacilli (3) Antisynthetase syndrome: (4) Ambulatory dysfunction: (5) Interstitial lung disease: (6) Steroid dependence: (7) Generalized weakness: (8) Left upper extremity swelling: (9) Severe protein-energy malnutrition: (10) PAF (paroxysmal atrial fibrillation): (11) Orthostatic hypotension: PLAN: Plan 1. Continue therapy. 2. Pt now agreeable to starting an antidepressant. Will use Duloxetine to help with the chronic pain in the LUE and the R knee. 3. I feel that he has plateaued in therapy and now is actually starting to decline........I do not know how much of this is due to depression and how much is due to the chronic disease. It is my opinion that he needs to have a consult/treatment with someone specializing in immunologic diseases/rheumatology. I think he will continue to dwindle on rehab, mamae because he is only active when therapy is with him and his performance is declining. Will make an appt for him to be seen going forward at [facility] with Rheumatology/immunology. This was discussed with Shorty and Ashley and they agree to scheduling an appt. Right now there is no acute problem that would require acute inpt care so not able to transfer him. We discussed going [facility] with [facility] but, Ashley does not feel that she can care for him and she does not want to have him home at this time. Since he is no longer improving with therapy may need to consider transfer to an SNF or ECF. Charges/Coding Visit Charges Inpatient E&M: 03824 Subs Hosp L2
[2024-09-18] MEDS: Ondansetron ODT 4 MG Tablet PO (11:47)
--- NOTE | 2024-09-18 13:24 | CASEMGMT ---
Social Work IDT met with patient and for Team meeting. Discussed patient's progress in PT/OT/SN. Educated to [facility] insurance with NRD 09/20 and continued stay is not guaranteed with each review. IDT discussed pt's decline with therapy. Pt is resting in between therapy sessions and does not choose to sit up in his chair. Wound nurse did get home wound vac approved for readiness for DC. Discussed setting DC date with recommendation for 14/06 care. Pt expressed wanting to be home. became emotional and voiced having caregiver burnout since 2011 citing having to care for her late-parents, her , and grandchildren. Allowed time for to express emotions and share her trauma. SW and validated feelings and acknowledged does have a lot to care for and encouraged to hire help for . recommended pursue assistance with counseling. expressed understanding. Dr discussed pt's depression and decline. Inquired about pt reconsidering start of antidepressant. Pt agreeable. accepting of private duty [employer], medical alert, driving rehab program and counseling. Redirected to discussion of DC planning. Pt is in agreement but is not, requesting to speak with the adult children and family first; and hiring aides to assist. to contact this worker with decision. SW to keep and pt updated on insurance outcome. DELMER HallW
[2024-09-18 18:00] VITALS: BP 94/52; PULSE 83; RESP 18; TEMP 36.8; O2SAT 94
[2024-09-18 20:20] VITALS: PULSE 79; RESP 16; O2SAT 93
[2024-09-18] MEDS: Azithromycin 250 MG Tablet 500 MG PO (20:27)
[2024-09-19 05:00] VITALS: BP 100/47; PULSE 83; RESP 17; TEMP 36.2; O2SAT 92
[2024-09-19] MEDS: Arthritis Pain Compound 60 CLICK TUBE TOPICAL ×2 (05:23→22:21)
[2024-09-19] MEDS: Gabapentin 300 MG Capsule PO ×3 (05:24→22:21)
[2024-09-19 07:11] VITALS: PULSE 80; RESP 18
[2024-09-19] MEDS: Budesonide Respules 0.5 MG/2 ML AMPUL.NEB. INHALATION ×2 (07:14→19:34)
[2024-09-19] MEDS: APIXABAN 5 MG TABLET PO ×2 (09:00→22:21)
[2024-09-19] MEDS: Cyanocobalamin 500 MCG Tablet PO (09:00)
[2024-09-19] MEDS: Lactobacillis Acidophilus 1 CAP PO (09:00)
[2024-09-19] MEDS: predniSONE 10 MG Tablet PO (09:00)
[2024-09-19] MEDS: Amiodarone 200 MG Tablet PO (09:00)
[2024-09-19] MEDS: Ensure Plus High Protein 120 ML LIQUID PO ×3 (09:00→16:41)
[2024-09-19 09:01] VITALS: PULSE 82
[2024-09-19] MEDS: Montelukast 10 MG Tablet PO (09:01)
[2024-09-19] MEDS: Cholecalciferol (Vit D3) 125 MCG CAPSULE (5,000 UNITS) PO (09:01)
[2024-09-19] MEDS: Metoprolol(XL)Succ 25 MG Tablet PO (09:01)
[2024-09-19] MEDS: Pantoprazole Sodium 40 MG Tablet PO (09:01)
[2024-09-19] MEDS: Zinc Sulfate 50 mg zinc (220 mg) ORAL capsule PO (09:01)
--- NOTE | 2024-09-19 11:00 | CASEMGMT ---
Social Work SW received call from . SW answered further questions from . stated she spoke with pt and both are in agreement for pt to transfer to a SNF, as currently, does not feel comfortable having pt return home. inquired about [facility] TCU. SW explained TCU is a penitentiary unit, and pt is currently not qualifying for skilled care, given his plateau and Drs recommendations for DC. questioned the skilled criteria, Drs recommendation and the difference between TCU and another SNF. SW explained to in detail the criteria for skilled care, i.e progression, skills of a nurse and therapists, and TCU not having the intermediate LOC pt is currently qualifying for. SW explained if the accepting SNF determines pt meets skilled criteria, they can request precert for services. Otherwise, pt would admit to a SNF, private pay, with part B therapies, if INN facility. SW offered to provide a list of INN SNFs to . agreeable to email the list, but first choice is [facility]. SW offered to place referral and determine acceptance or if INN. appreciative. SW will continue to follow and notify of insurance outcome. Susanna Marcum, DELMER TIE FASTENER
--- NOTE | 2024-09-19 12:19 | PN_ITS ---
Subjective Subjective Afebrile VSS -blood pressure yesterday ranged from 94/52 to 103/52. Blood pressure this a.m. is 100/47. Heart rate is within normal limits. Not tachypneic. Maintaining appropriate oxygen saturation on RA-92 to 94% on room air Oral intake - FOOD continues to be variable, usually 50 to 100%. Occasionally only eats 25 to 49% but this is rare now. FLUIDS fluid intake was poor yesterday and he took only 760 cc. He has had 600 cc so far today. Discussed with nursing - no problems that need addressed Reviewed the THERAPY notes Medication list reviewed. Shorty continues to c/o pain in the R knee.......but there is no swelling, erythema or increased warmth of the R knee. When I palpate the Knee he has no pain but, he has pain with palpation of the suprapatellar area.......again there is no erythema, swelling, openings in the skin or increased warmth to touch. He also has pain in the left hand but, no swelling and no erythema. No pain with palpation. Denies chest pain, shortness of breath, cough, nausea/vomiting/abdominal pain. Appetite is poor and erratic. He is sleeping a lot. Objective Data Objective Data Vital Signs: Vital Signs Temp Pulse Resp BP Pulse Ox O2 Del Method O2 Flow Rate 97.1 F L 82 18 100/47 L 92 Room Air 1 09/19/24 05:00 09/19/24 09:01 09/19/24 07:11 09/19/24 05:00 09/19/24 05:00 09/19/24 05:00 09/04/24 08:34 Oxygen Flow Rate (L/min) 1 Oxygen Delivery Method Room Air Weight: 177 lb 4.026 oz Body Mass Index (BMI) 25.3 Intake & Output: Intake and Output for Last 24 Hours 09/17/24 09/18/24 09/19/24 23:59 23:59 23:59 Intake Total 1750 / 1750 760 / 760 600 / 600 Output Total 1695 / 1695 850 / 850 375 / 375 Balance 55 / 55 -90 / -90 225 / 225 Medical Nutrition Assessment Dietitian: Malnutrition Criteria Met Start: 08/31/24 15:18 Freq: Status: Active Protocol: Document 08/31/24 15:18 SB (Rec: 08/31/24 15:18 SB [id number]) Nutrition Malnutrition Evidence of Malnutrition Exists Yes Malnutrition (severe): Acute Illness/Injury Evidenced By Suboptimal Energy Intake ( Severe),Weight Loss (Severe) Intake Problem Increased Nutrient Needs (specify) Etiology protein related to wound healing Signs/Symptoms as evidenced by boil on left inner thigh. Status Active Problem Clinical Problem Acute Disease or Injury Related Malnutrition Etiology severe malnutrition related to inadequate oral intake Signs/Symptoms as evidenced by 3% unintentional weight loss x 1 week and meeting <75% of estimated energy intake x 2 months. Status Active Problem Recommendation Dietitian Recommendations/Changes Continue liberal regular diet d/t signs and symptoms of malnutrition. Continue 120ml ensure plus high protein TID with medpass and Shay BID with medpass. Will adjust diet to cardiac diet, as appetite improves. Will adjust ONS, as appetite improves. Will monitor weight, as available. Reviewed and approved by Aniyah Powell, RD, LD. Lab / Micro Data 09/22/24 12:46 09/22/24 12:46 Micro: Microbiology 09/08/24 20:00 Wound Abcess - Aerobic & Anaerobic Swabs Gram Stain - Final 09/08/24 20:00 Wound Abcess - Aerobic & Anaerobic Swabs Wound Culture - Final No growth aerobically. 09/08/24 20:00 Wound Abcess - Aerobic & Anaerobic Swabs Anaerobic Culture - Final No growth in 5 days. 09/08/24 20:00 Tissue - Leg, Left Gram Stain - Final 09/08/24 20:00 Tissue - Leg, Left Wound Culture - Final No growth aerobically. 09/08/24 20:00 Tissue - Leg, Left Anaerobic Culture - Final No growth in 5 days. 09/08/24 10:15 Wound Abcess - Leg, Left Gram Stain - Final 09/08/24 10:15 Wound Abcess - Leg, Left Wound Culture - Final No growth aerobically. 09/08/24 19:38 Tissue - Leg, Left Fungal Culture - Preliminary 09/08/24 20:00 Tissue - Leg, Left Acid Fast Bacilli Smear - Final 09/08/24 20:00 Tissue - Leg, Left Acid Fast Bacilli Culture - Preliminary 09/09/24 06:15 Stool Stool Occult Blood (SHRUTI) - Final Physical Exam Const Constitutional Narrative: Drowsy, flat affect, little motivation but, he is doing his therapy. HEENT Mouth: dry mucous membranes Resp clear to auscultation bilaterally Resp Narrative: No conversational dyspnea. Diminished, especially in the bases. This may be related to poor effort. Effort and Inspection: Negative for tachypneic or labored Cardio regular rate, regular rhythm, no rub and no gallops Cardio Narrative: No ectopy GI normal to inspection, nondistended, normoactive bowel sounds, soft to palpation and non-tender Extremity no calf tenderness General Extremity: Negative for edema Assessment & Plan Assessment/Plan (1) Debility: (2) Generalized weakness: (3) Abscess of left thigh: (4) PAF (paroxysmal atrial fibrillation): (5) Anticoagulant long-term use: (6) Antisynthetase syndrome: (7) Interstitial lung disease: (8) Steroid dependence: PLAN: Chronically on 10 mg of prednisone daily. (9) Personal history of immunosupression therapy: PLAN: CellCept and prednisone (10) Severe protein-energy malnutrition: PLAN: Appetite is highly variable.......25-49% at times. Rarely 75-100%. (11) Raynauds disease: QUALIFIERS: Raynaud?s-associated gangrene presence: without gangrene Qualified Code(s): I73.00 - Raynaud's syndrome without gangrene PLAN: Has hand pain in the hands and feet intermittently with cyanotic nail beds. (12) Orthostatic hypotension: PLAN: intermittent. Fluid intake falls off at times and he gets dehydrated. Generally improves with hydration. (13) Lung nodule: PLAN: This was not mentioned on a CTA of the chest from 08/22/24. PLAN: Plan 1. Continue therapy 2. Will need to transition to long-term prior to return home 3. Duloxetine 20 mg daily-having no adverse side effects consider increase to 30 mg in 1 week for depression. 4. Continue to encourage increased fluid intake. 5. Continue azithromycin and await the final read cultures on the abscess from the left medial thigh. Will need to follow-up with infectious disease. Charges/Coding Visit Charges Inpatient E&M: 06276 Subs Hosp L1
[2024-09-19] MEDS: DULoxetine Hcl 20 MG Capsule PO (13:20)
--- NOTE | 2024-09-19 14:10 | CASEMGMT ---
Social Work SW emailed to pt's a list via [facility] of long term facilities in network w/pt's insurance, in pt's preferred geographic area, and complete w/quality and resource use data. KALLI Pascual
[2024-09-19 18:00] VITALS: BP 105/63; PULSE 85; RESP 18; TEMP 36.7; O2SAT 98
[2024-09-19 19:34] VITALS: PULSE 78; RESP 16
[2024-09-19] MEDS: Azithromycin 250 MG Tablet 500 MG PO (22:21)
[2024-09-20] VITALS (7 sets, daily range): BP systolic 94–112; BP diastolic 50–70; PULSE 61–84; RESP 16–18; TEMP 36.4–36.8; O2SAT 92–93; BMI 25.1
[2024-09-20] MEDS: Arthritis Pain Compound 60 CLICK TUBE TOPICAL ×2 (06:10→20:18)
[2024-09-20] MEDS: Gabapentin 300 MG Capsule PO ×3 (06:10→20:20)
[2024-09-20] MEDS: Budesonide Respules 0.5 MG/2 ML AMPUL.NEB. INHALATION ×2 (07:11→19:46)
[2024-09-20] MEDS: Ensure Plus High Protein 120 ML LIQUID PO ×3 (08:17→16:46)
[2024-09-20] MEDS: Smz/Tmp Ds Tablet 1 TABLET PO (08:18)
[2024-09-20] MEDS: Lactobacillis Acidophilus 1 CAP PO (08:18)
[2024-09-20] MEDS: Cyanocobalamin 500 MCG Tablet PO (08:19)
[2024-09-20] MEDS: predniSONE 10 MG Tablet PO (08:19)
[2024-09-20] MEDS: APIXABAN 5 MG TABLET PO ×2 (08:20→20:18)
[2024-09-20] MEDS: Amiodarone 200 MG Tablet PO (08:20)
[2024-09-20] MEDS: DULoxetine Hcl 20 MG Capsule PO (08:20)
[2024-09-20] MEDS: Pantoprazole Sodium 40 MG Tablet PO (08:21)
[2024-09-20] MEDS: Montelukast 10 MG Tablet PO (08:21)
[2024-09-20] MEDS: Zinc Sulfate 50 mg zinc (220 mg) ORAL capsule PO (08:22)
[2024-09-20] MEDS: Cholecalciferol (Vit D3) 125 MCG CAPSULE (5,000 UNITS) PO (08:22)
[2024-09-20] MEDS: Metoprolol(XL)Succ 25 MG Tablet PO (09:00)
[2024-09-20] MEDS: traMADol 50 MG Tablet PO (10:16)
--- NOTE | 2024-09-20 10:57 | CASEMGMT ---
Addendum entered by Ping Cooper 09/20/24 15:21: Social Work [facility] is able to accept pt. EDMUND Johnson Original Note: Social Work Referral sent to [facility] requesting placement in [facility] under private pay. SW will await determination of acceptance. EDMUND Johnson
--- NOTE | 2024-09-20 12:24 | PN.SURG_ITS ---
<Statement entered by Chuckie Kaba MD - 09/20/24 15:46> I have personally performed a face to face assessment of the patient and have reviewed the LIANA Note. Subjective Subjective Postop day #12. Patient is doing well. His pain is well controlled. He is tolerating his wound VAC well. Objective Data Objective Data Vital Signs: Vital Signs Temp Pulse Resp BP Pulse Ox O2 Del Method O2 Flow Rate 97.5 F L 76 16 112/62 92 Room Air 1 09/20/24 06:00 09/20/24 09:00 09/20/24 10:00 09/20/24 09:00 09/20/24 06:00 09/20/24 06:00 09/04/24 08:34 Oxygen Flow Rate (L/min) 1 Oxygen Delivery Method Room Air Weight: 175 lb 2 oz Body Mass Index (BMI) 25.1 Intake & Output: Intake and Output for Last 24 Hours 09/18/24 09/19/24 09/20/24 23:59 23:59 23:59 Intake Total 760 / 760 1200 / 1900 800 / 800 Output Total 850 / 850 625 / 925 450 / 450 Balance -90 / -90 575 / 975 350 / 350 Medical Nutrition Assessment Dietitian: Malnutrition Criteria Met Start: 08/31/24 15:18 Freq: Status: Active Protocol: Document 08/31/24 15:18 SB (Rec: 08/31/24 15:18 SB [id number]) Nutrition Malnutrition Evidence of Malnutrition Exists Yes Malnutrition (severe): Acute Illness/Injury Evidenced By Suboptimal Energy Intake ( Severe),Weight Loss (Severe) Intake Problem Increased Nutrient Needs (specify) Etiology protein related to wound healing Signs/Symptoms as evidenced by boil on left inner thigh. Status Active Problem Clinical Problem Acute Disease or Injury Related Malnutrition Etiology severe malnutrition related to inadequate oral intake Signs/Symptoms as evidenced by 3% unintentional weight loss x 1 week and meeting <75% of estimated energy intake x 2 months. Status Active Problem Recommendation Dietitian Recommendations/Changes Continue liberal regular diet d/t signs and symptoms of malnutrition. Continue 120ml ensure plus high protein TID with medpass and Shay BID with medpass. Will adjust diet to cardiac diet, as appetite improves. Will adjust ONS, as appetite improves. Will monitor weight, as available. Reviewed and approved by Aniyah Powell RD, LD. Lab / Micro Data Attestation: I reviewed the patient's lab results. 09/18/24 05:17 09/18/24 05:17 Micro: Microbiology 09/08/24 20:00 Wound Abcess - Aerobic & Anaerobic Swabs Gram Stain - Final 09/08/24 20:00 Wound Abcess - Aerobic & Anaerobic Swabs Wound Culture - Final No growth aerobically. 09/08/24 20:00 Wound Abcess - Aerobic & Anaerobic Swabs Anaerobic Culture - Final No growth in 5 days. 09/08/24 20:00 Tissue - Leg, Left Gram Stain - Final 09/08/24 20:00 Tissue - Leg, Left Wound Culture - Final No growth aerobically. 09/08/24 20:00 Tissue - Leg, Left Anaerobic Culture - Final No growth in 5 days. 09/08/24 10:15 Wound Abcess - Leg, Left Gram Stain - Final 09/08/24 10:15 Wound Abcess - Leg, Left Wound Culture - Final No growth aerobically. 09/08/24 19:38 Tissue - Leg, Left Fungal Culture - Preliminary 09/08/24 20:00 Tissue - Leg, Left Acid Fast Bacilli Smear - Final 09/08/24 20:00 Tissue - Leg, Left Acid Fast Bacilli Culture - Preliminary 09/09/24 06:15 Stool Stool Occult Blood (SHRUTI) - Final Physical Exam Narrative Left medial thigh wound is nice beefy pink color. Undermining has resolved and depth has decreased. He is tolerating the wound VAC well. Const alert and oriented x3 HEENT normocephalic Resp normal respiratory effort Effort and Inspection: able to speak in complete sentences Cardio regular rate Extremity normal to inspection, normal capillary refill and no pedal edema Assessment & Plan Assessment/Plan (1) Open wound of left thigh: (2) Left thigh pain: (3) Abscess of left thigh: PLAN: Plan Left medial thigh wound is nice beefy pink. It is smaller and no longer undermining with the wound VAC at 125 mmHg. Continue VAC changes 3 x per week. Upon discharge, he will follow up with either Dr. Kaba or myself at the wound healing center for his wound care management. Dr. Alicia is consulted and managing antibiotics. Patient is currently on Bactrim for operative culture AFB(+). Encouraged protein supplementation for wound healing. He is prescribed Shay. Discussed plan of care with Dr. Kaba. Charges/Coding Procedures Integumentary [id number]: [id number] Global Visit
--- NOTE | 2024-09-20 13:16 | WOUNDNOTE ---
wound photo: left medial thigh
[2024-09-20] MEDS: Azithromycin 250 MG Tablet 500 MG PO (20:18)
--- NOTE | 2024-09-21 03:36 | NURSING ---
Reviewed and agree with LPN. Mayo Alva, documentation and assessment charting.
[2024-09-21 05:00] VITALS: BP 111/57; PULSE 72; RESP 16; TEMP 35.7; O2SAT 95
[2024-09-21] MEDS: Gabapentin 300 MG Capsule PO ×3 (05:19→20:06)
[2024-09-21] MEDS: Arthritis Pain Compound 60 CLICK TUBE TOPICAL ×2 (05:21→20:07)
--- NOTE | 2024-09-21 08:31 | PCM.PROGNOTE ---
Subjective Subjective Afebrile - temp is low at 96.3 today.....no fevers. VSS -blood pressure today is improved and is 111/57. Maintaining appropriate oxygen saturation on RA - 93-95% on RA, not tachypneic. Oral intake - FOOD poor for lunch and supper last night. Ate 75 to 100% of his breakfast this morning. FLUIDS improved yesterday-took 2200 cc orally yesterday. Weight is stable between 175 and 177. Discussed with nursing - incontinent of 1 loose stool last night but, no BM's since. Rhythm last night was irregular but, no tachycardia. Nursing reports he has wheezing last night.....I have never heard him wheeze....only persistent coarse crackles in the bases. Reviewed the THERAPY notes - He is min assist/SUP or CGA with all BADL's now. He had OT in bed because he felt weak and tired after PT today. Still fatiguing easily with more than seated tasks and BADL's Medication list reviewed. Back on Prednisone 10 mg daily which is his baseline dose. Continues on Azithromycin........AFB culture pending. I&D following. Bactrim is chronic for PCP prophylaxis. Has not been requesting Tramadol even once a day. Reviewed the surgery PN from yesterday. I viewed the photo taken yesterday of the thigh wound. NO purulent drainage, the wound is shrinking in size and the base is filling in. Tissue is red and granulating with no exudate. Wound vac was reapplied. HAILE gorman has agreed to take him when he is ready to go to SNF. He is c.o lightheadedness and nausea today after PT today and he had a emesis.......he is on Pantoprazole. Still having some pain oin the left hand and in the R knee but, the pain is actually in the quadriceps muscle above the knee. He also has some numbness in the 3rd, 4th and little fingers on the left hand......denies numbness in the thumb and index fingers. I have not seen the cyanosis of the nail beds the past few days. Objective Data Objective Data Vital Signs: Vital Signs Temp Pulse Resp BP Pulse Ox O2 Del Method O2 Flow Rate 96.3 F L 72 16 111/57 L 95 Room Air 1 09/21/24 05:00 09/21/24 05:00 09/21/24 05:00 09/21/24 05:00 09/21/24 05:00 09/21/24 05:00 09/04/24 08:34 Oxygen Flow Rate (L/min) 1 Oxygen Delivery Method Room Air Weight: 175 lb 2 oz Body Mass Index (BMI) 25.1 Intake & Output: Intake and Output for Last 24 Hours 09/19/24 09/20/24 09/21/24 23:59 23:59 23:59 Intake Total 1200 / 1900 2200 / 2200 360 / 360 Output Total 625 / 925 950 / 950 250 / 250 Balance 575 / 975 1250 / 1250 110 / 110 Medical Nutrition Assessment Dietitian: Malnutrition Criteria Met Start: 08/31/24 15:18 Freq: Status: Active Protocol: Document 08/31/24 15:18 SB (Rec: 08/31/24 15:18 SB [id number]) Nutrition Malnutrition Evidence of Malnutrition Exists Yes Malnutrition (severe): Acute Illness/Injury Evidenced By Suboptimal Energy Intake ( Severe),Weight Loss (Severe) Intake Problem Increased Nutrient Needs (specify) Etiology protein related to wound healing Signs/Symptoms as evidenced by boil on left inner thigh. Status Active Problem Clinical Problem Acute Disease or Injury Related Malnutrition Etiology severe malnutrition related to inadequate oral intake Signs/Symptoms as evidenced by 3% unintentional weight loss x 1 week and meeting <75% of estimated energy intake x 2 months. Status Active Problem Recommendation Dietitian Recommendations/Changes Continue liberal regular diet d/t signs and symptoms of malnutrition. Continue 120ml ensure plus high protein TID with medpass and Shay BID with medpass. Will adjust diet to cardiac diet, as appetite improves. Will adjust ONS, as appetite improves. Will monitor weight, as available. Reviewed and approved by Aniyah Powell, JAIRON, LD. Lab / Micro Data 09/18/24 05:17 09/18/24 05:17 Micro: Microbiology 09/08/24 20:00 Wound Abcess - Aerobic & Anaerobic Swabs Gram Stain - Final 09/08/24 20:00 Wound Abcess - Aerobic & Anaerobic Swabs Wound Culture - Final No growth aerobically. 09/08/24 20:00 Wound Abcess - Aerobic & Anaerobic Swabs Anaerobic Culture - Final No growth in 5 days. 09/08/24 20:00 Tissue - Leg, Left Gram Stain - Final 09/08/24 20:00 Tissue - Leg, Left Wound Culture - Final No growth aerobically. 09/08/24 20:00 Tissue - Leg, Left Anaerobic Culture - Final No growth in 5 days. 09/08/24 10:15 Wound Abcess - Leg, Left Gram Stain - Final 09/08/24 10:15 Wound Abcess - Leg, Left Wound Culture - Final No growth aerobically. 09/08/24 19:38 Tissue - Leg, Left Fungal Culture - Preliminary 09/08/24 20:00 Tissue - Leg, Left Acid Fast Bacilli Smear - Final 09/08/24 20:00 Tissue - Leg, Left Acid Fast Bacilli Culture - Preliminary 09/09/24 06:15 Stool Stool Occult Blood (SHRUTI) - Final Physical Exam Const alert and oriented x3 Constitutional Narrative: Has been getting up in the chair with meals now. He looks more alert than I have seen him in the past week. He is more conversant as well. General Appearance: cooperative HEENT Mouth: dry mucous membranes Resp normal respiratory effort Resp Narrative: Few fine crackles in the bases but, otherwise CTA with no wheezing. No conversational dyspnea. Not tachypneic. Cardio regular rate, regular rhythm and no gallops Cardio Narrative: No tachycardia or bradycardia with review of his pulse rate on vital signs. GI normal to inspection, nondistended, normoactive bowel sounds, soft to palpation and non-tender GI Narrative: Denies constipation, abdominal pain and diarrhea. Inspection: Negative for abdominal distention Extremity Extremity Narrative: No swelling, redness or increased warmth of the R knee. He has pain with palpation of the quadriceps muscle. There is no erythema or increased warmth over the anterior thigh on the R. No calf tenderness. NO cyanosis of the fingernails or toenails in the past couple days. General Extremity: Negative for edema Skin Rashes: no rashes Neuro Neuro Narrative: More alert and less flat affect today. Assessment & Plan Assessment/Plan (1) Debility: (2) Abscess of left thigh: PLAN: tissue/wound specimen with AF bacilli (3) Antisynthetase syndrome: (4) Ambulatory dysfunction: (5) Interstitial lung disease: (6) Steroid dependence: (7) Generalized weakness: (8) Left upper extremity swelling: (9) Severe protein-energy malnutrition: (10) PAF (paroxysmal atrial fibrillation): (11) Orthostatic hypotension: (12) Raynauds disease: PLAN: suspected. PLAN: Plan 1. Continue therapy 2. Has been approved for transfer to [facility] when he is cut by his insurance. will not be able to manage him at home. Still fatiguing very easily. 3. Continue Azithromycin. 4. Continue Prednisone at 10 mg daily. Continue to hold Cellcept until OK with ID to restart. AFB culture is pending. 5. D/W Ashley today and answered her questions. She would like him to go to [facility]. Next update is next Wednesday........will likely plan on DC then. 6. Continue the Duloxetine at 20 mg and if he continues to tolerate without adverse SE will likely increase to 30 mg in 1 week. 7. I am suspicious that he has orthostatic hypotension that leads to the nausea/weakness, vomiting. Recommend that he have a tilt table test as an OP. Reminded him that he gets worse when he has poor fluid intake and encouraged him to drink at least 1500 cc daily of noncaffeinated fluid Charges/Coding Visit Charges Inpatient E&M: 27680 Subs Hosp L1
[2024-09-21] MEDS: predniSONE 10 MG Tablet PO (09:19)
[2024-09-21] MEDS: Zinc Sulfate 50 mg zinc (220 mg) ORAL capsule PO (09:19)
[2024-09-21] MEDS: DULoxetine Hcl 20 MG Capsule PO (09:19)
[2024-09-21] MEDS: Pantoprazole Sodium 40 MG Tablet PO (09:19)
[2024-09-21] MEDS: APIXABAN 5 MG TABLET PO ×2 (09:19→20:07)
[2024-09-21] MEDS: Montelukast 10 MG Tablet PO (09:19)
[2024-09-21] MEDS: Cholecalciferol (Vit D3) 125 MCG CAPSULE (5,000 UNITS) PO (09:19)
[2024-09-21] MEDS: Amiodarone 200 MG Tablet PO (09:19)
[2024-09-21] MEDS: Cyanocobalamin 500 MCG Tablet PO (09:19)
[2024-09-21] MEDS: Lactobacillis Acidophilus 1 CAP PO (09:19)
[2024-09-21 09:20] VITALS: PULSE 72
[2024-09-21] MEDS: Metoprolol(XL)Succ 25 MG Tablet PO (09:20)
[2024-09-21] MEDS: Ensure Plus High Protein 120 ML LIQUID PO ×2 (09:23→17:10)
[2024-09-21] MEDS: Ondansetron ODT 4 MG Tablet PO (10:55)
--- NOTE | 2024-09-21 14:38 | CASEMGMT ---
Addendum entered by Susanna Marcum 09/21/24 15:14: SW received returned call from . SW offered to set DC date for 09/27 to [facility]. inquired about discharging sooner. SW offered to DC 09/25, to avoid the weekend. agreeable. SW inquired about transport. stated she does feel not comfortable transporting him, and requested transport, and agreed to provide payment prior to transport if needed. SW spoke with pt and pt agreeable. SW updated [facility] and IDT. Scheduled w/c transport through [facility] for 1300. 7000 started in [place]. Plan: DC 09/25, [facility], intermediate DELMER Hall Original Note: Social Work SW left message with to update on insurance outcome and [facility]. DELMER Hall
[2024-09-21 18:00] VITALS: BP 82/52; PULSE 75; RESP 16; TEMP 36.9; O2SAT 92
[2024-09-21 19:50] VITALS: PULSE 84; RESP 16; O2SAT 92
[2024-09-21] MEDS: Azithromycin 250 MG Tablet 500 MG PO (20:06)
[2024-09-21] MEDS: Budesonide Respules 0.5 MG/2 ML AMPUL.NEB. INHALATION (20:21)
[2024-09-21 20:22] VITALS: RESP 16
--- NOTE | 2024-09-22 02:21 | NURSING ---
Reviewed and agree with Mayo HODGES, documentation and assessment charting.
[2024-09-22] MEDS: Gabapentin 300 MG Capsule PO ×3 (05:23→22:23)
[2024-09-22] MEDS: Arthritis Pain Compound 60 CLICK TUBE TOPICAL ×2 (05:24→22:23)
[2024-09-22 05:30] VITALS: BP 100/55; PULSE 70; RESP 16; TEMP 36.1; O2SAT 94
[2024-09-22] MEDS: Budesonide Respules 0.5 MG/2 ML AMPUL.NEB. INHALATION ×2 (06:42→19:50)
[2024-09-22] MEDS: Smz/Tmp Ds Tablet 1 TABLET PO (07:56)
[2024-09-22] MEDS: predniSONE 10 MG Tablet PO ×2 (07:57→18:13)
[2024-09-22] MEDS: Lactobacillis Acidophilus 1 CAP PO (07:57)
[2024-09-22] MEDS: Ensure Plus High Protein 120 ML LIQUID PO ×3 (07:58→18:13)
[2024-09-22] MEDS: Montelukast 10 MG Tablet PO (10:13)
[2024-09-22] MEDS: Pantoprazole Sodium 40 MG Tablet PO (10:13)
[2024-09-22] MEDS: DULoxetine Hcl 20 MG Capsule PO (10:13)
[2024-09-22] MEDS: Amiodarone 200 MG Tablet PO (10:13)
[2024-09-22] MEDS: APIXABAN 5 MG TABLET PO (10:13)
[2024-09-22] MEDS: Zinc Sulfate 50 mg zinc (220 mg) ORAL capsule PO (10:14)
[2024-09-22] MEDS: Cyanocobalamin 500 MCG Tablet PO (10:14)
[2024-09-22] MEDS: Cholecalciferol (Vit D3) 125 MCG CAPSULE (5,000 UNITS) PO (10:14)
[2024-09-22] MEDS: traMADol 50 MG Tablet PO (10:17)
[2024-09-22 10:32] VITALS: PULSE 72
[2024-09-22] MEDS: Metoprolol(XL)Succ 25 MG Tablet PO (10:32)
--- NOTE | 2024-09-22 10:32 | PN_ITS ---
Subjective Subjective Afebrile Vital signs are stable, no tachycardia, no bradycardia. Denies lightheadedness. Continues to c/o pain in the R eye. Today he has swelling/induration of the R lateral thigh. This was not present yesterday. There is no joint effusion and the swelling is really above the knee and in the lateral thigh. The area is red and warm to touch. There are no openings in the skin Lungs - unchanged from yesterday. He has a few basilar crackles. Normal respiratory effort. No wheezing. No conversational dyspnea Heart-regular rate and rhythm, no gallop No calf pain The abdomen is soft, nondistended and nontender The left thigh wound continues to heal. The base is pink and granulating. There is no purulent discharge. There is no odor. There is no du-incisional erythema and no swelling. The base of the wound is filling in very well and I suspect it will be healed in the next few weeks. Objective Data Objective Data Vital Signs: Vital Signs Temp Pulse Resp BP Pulse Ox O2 Del Method O2 Flow Rate 97.0 F L 70 16 100/55 L 94 Room Air 1 09/22/24 05:30 09/22/24 05:30 09/22/24 05:30 09/22/24 05:30 09/22/24 05:30 09/22/24 05:30 09/04/24 08:34 Oxygen Flow Rate (L/min) 1 Oxygen Delivery Method Room Air Weight: 175 lb 2 oz Body Mass Index (BMI) 25.1 Intake & Output: Intake and Output for Last 24 Hours 09/20/24 09/21/24 09/22/24 23:59 23:59 23:59 Intake Total 2200 / 2200 840 / 840 100 / 100 Output Total 950 / 950 650 / 650 175 / 175 Balance 1250 / 1250 190 / 190 -75 / -75 Medical Nutrition Assessment Dietitian: Malnutrition Criteria Met Start: 08/31/24 15:18 Freq: Status: Active Protocol: Document 08/31/24 15:18 SB (Rec: 08/31/24 15:18 SB [id number]) Nutrition Malnutrition Evidence of Malnutrition Exists Yes Malnutrition (severe): Acute Illness/Injury Evidenced By Suboptimal Energy Intake ( Severe),Weight Loss (Severe) Intake Problem Increased Nutrient Needs (specify) Etiology protein related to wound healing Signs/Symptoms as evidenced by boil on left inner thigh. Status Active Problem Clinical Problem Acute Disease or Injury Related Malnutrition Etiology severe malnutrition related to inadequate oral intake Signs/Symptoms as evidenced by 3% unintentional weight loss x 1 week and meeting <75% of estimated energy intake x 2 months. Status Active Problem Recommendation Dietitian Recommendations/Changes Continue liberal regular diet d/t signs and symptoms of malnutrition. Continue 120ml ensure plus high protein TID with medpass and Shay BID with medpass. Will adjust diet to cardiac diet, as appetite improves. Will adjust ONS, as appetite improves. Will monitor weight, as available. Reviewed and approved by Aniyah Powell, RD, LD. Lab / Micro Data 09/22/24 12:46 09/18/24 05:17 Micro: Microbiology 09/08/24 20:00 Wound Abcess - Aerobic & Anaerobic Swabs Gram Stain - Final 09/08/24 20:00 Wound Abcess - Aerobic & Anaerobic Swabs Wound Culture - Final No growth aerobically. 09/08/24 20:00 Wound Abcess - Aerobic & Anaerobic Swabs Anaerobic Culture - Final No growth in 5 days. 09/08/24 20:00 Tissue - Leg, Left Gram Stain - Final 09/08/24 20:00 Tissue - Leg, Left Wound Culture - Final No growth aerobically. 09/08/24 20:00 Tissue - Leg, Left Anaerobic Culture - Final No growth in 5 days. 09/08/24 10:15 Wound Abcess - Leg, Left Gram Stain - Final 09/08/24 10:15 Wound Abcess - Leg, Left Wound Culture - Final No growth aerobically. 09/08/24 19:38 Tissue - Leg, Left Fungal Culture - Preliminary 09/08/24 20:00 Tissue - Leg, Left Acid Fast Bacilli Smear - Final 09/08/24 20:00 Tissue - Leg, Left Acid Fast Bacilli Culture - Preliminary 09/09/24 06:15 Stool Stool Occult Blood (SHRUTI) - Final Assessment & Plan Assessment/Plan (1) Right thigh pain: (2) Debility: (3) Generalized weakness: (4) Abscess of left thigh: PLAN: Plan 1. Continue therapy-plan is for discharge to [facility] on Wednesday however due to the development of swelling, redness and increased warmth to touch of the right lateral thigh this may change. 2. An EKG was obtained since he is on amiodarone and azithromycin and he has a right bundle branch block and left anterior fascicular block. The QT interval is not prolonged. There is left axis deviation. He was in normal sinus rhythm with no ectopy. 3. Obtain a venous ultrasound of the right lower extremity. If the venous ultrasound is negative for DVT we will proceed with a CT scan of the right thigh to r/o abscess 4. Continue the wound vac on the Left thigh wound. Charges/Coding Visit Charges Inpatient E&M: 85279 Subs Hosp L2
--- NOTE | 2024-09-22 10:33 | VDLE_ITS ---
Reason For Study: Swelling RLE RIGHT LEFT GSV is normal. CFV is compressible, spontaneous, phasic, CFV is compressible, spontaneous, phasic, competent, and demonstrates normal competent and demonstrates normal augmentation. augmentation. FV is compressible, spontaneous, phasic, competent and demonstrates normal augmentation. POP V is compressible, spontaneous, phasic, competent and demonstrates normal augmentation. T/P Trunk is compressible. PTV is compressible. RT PerV is compressible. Large, heterogeneous structure noted lateral and medial distal thigh measuring 5.81cm x 4.16cm, some areas appear vascularized. Procedure This is a venous duplex using B-mode, color flow and spectral Doppler. Exam performed portable in patient room. A preliminary report was called and/or faxed to Dr. Arteaga. VL/Venous Duplex US, Unilateral Interpretation Summary Deep veins of the right lower extremity are patent and compressible segmentally . There is no evidence of right lower extremity deep vein thrombosis. Valvular competence raghav ears intact within the proximal deep venous system on the right . The right great saphenous vein a ppears patent and compressible segmentally. A large, heterogeneous structure is noted in the righ t distal thigh, measuring 5.81 cm x 4.16 cm. This may represent a hematoma or abscess. Clinical correlation is advised. An alternative imaging modality may be helpful. The left common femora l vein is patent and compressible . Ordering Physician: Verónica Arteaga Referring Physician: Tanya Pettit Performed By: Erika Hanson, JAIRONCS, RVT
--- NOTE | 2024-09-22 11:13 | WOUNDNOTE ---
wound photo: left medial thigh
--- NOTE | 2024-09-22 12:09 | CT_ITS ---
CT RIGHT LOWER EXTREMITY WITH 3-D IMAGING CLINICAL INDICATION: abscess -- please include the knee TECHNIQUE: Axial CT images of the RIGHT lower extremity was performed under cc of Isovue-300 IV contrast material. Coronal and sagittal reformats were provided. The protocol utilizes one or more of the following dose reduction techniques: automated exposure control, adjustment of mA and/or kV according to patient size,and/or use of iterative reconstruction technique. RADIATION DOSAGE (If Supplied By Facility): CTDIvol = ( 15.35 ) mGy, DLP = ( 879.54 ) mGycm COMPARISON: No relevant prior comparison study available FINDINGS: Bones: Osseous structures are unremarkable without evidence of fracture or dislocation. No lytic or blastic osseous masses. Soft Tissues: Multiseptated fluid collections extending from the distal third of the thigh to the suprapatellar joint space region as well as posteriorly surrounding the distal femur extending for a length of approximately 14 cm and approximately 7 cm in AP diameter concerning for multiloculated abscess. Atrophic changes of the deep muscular structures. Mild subcutaneous edema and swelling. Vascular calcifications. CT/Extremity Lower WITH Contrast IMPRESSION: 1. Large multiseptated and loculated fluid collections in the distal third of the thigh surrounding the distal femur as described above concerning for multiloculated abscess. 2. No demonstrated acute osseous changes. Electronically Signed: Charlie Chakraborty MD at 14:55 EDT ,
[2024-09-22 12:56] LABS: Absolute Lymphocyte Count 0.31 X10^3/uL (0.83-4.51); Absolute Neutrophil Count 19.1 X10^3/uL (2.0-7.7); Basophil# 0.06 X10^3/uL; Basophil% 0.3 % (0-1); Eosinophil# 0.06 X10^3/uL; Eosinophils% 0.3 % (0-5); Hemoglobin 13.4 g/dL (13.0-16.5); Lymphocyte # 0.31 X10^3/ul (0.83-4.51); Lymphocyte % 1.5 % (19-41); Mean Corp Hgb Conc 31.2 g/dL (32-36); Mean Corpuscular Hgb 28.8 pg (27.0-32.0); Mean Corpuscular Volume 92.3 fL (80-94); Mean Platelet Vol. 8.8 fl (6.2-12.0); Monocyte# 0.66 X10^3/uL; Monocyte% 3.3 % (0-10); NRBC Flagged by Analyzer 0 % (0-5); Neutrophil # 19.06 X10^3/uL (2.7-7.7); Neutrophil % 93.9 % (47-70); POSITIVE DIFFERENTIAL YES; Platelet Count 364 K/mm3 (150-450); RBC Distribution Width CV 15.6 % (11.6-14.6); RBC Distribution Width SD 52.7 fl (35.1-43.9); Red Blood Count 4.66 M/mm3 (4.6-6.2); White Blood Count 20.3 K/mm3 (4.4-11.0)
[2024-09-22 13:23] LABS: Lactic Acid 1.9 mmol/L (0.4-1.9)
[2024-09-22 13:30] LABS: Erythrocyte Sedimentation Rate 52 mm/hr (0-20)
--- NOTE | 2024-09-22 13:31 | CASEMGMT ---
Social Work Per physician, pt now requires transfer to tertiary facility and will not continued with [facility]. [place] notified via [facility]. Transportation previously arranged with [facility] cancelled. EDMUND Johnson
[2024-09-22 13:50] LABS: Anion Gap 5 (5-15); BUN 18 mg/dL (7-18); BUN/Creat Ratio 15.3 RATIO (10-20); Calcium,Total 10.1 mg/dL (8.5-10.1); Chloride 101 mmol/L (98-107); Creatinine, Serum 1.18 mg/dL (0.70-1.30); EST Glomerular Filtration Rate 65 mL/min (>60); Est Glom Filt Rate - Afr Amer 78 mL/min (>60); Estimated Creatinine Clearance 59.29 ml/min; Glucose 120 mg/dL (74-106); Potassium 4.1 mmol/L (3.5-5.1); Sodium Level 134 mmol/L (136-145)
--- NOTE | 2024-09-22 15:24 | DS.PCM_ITS ---
Providers Date of Admission: 08/30/24 Primary Care Physician: Dr. Tanya Pettit DO Consultations 08/30/24 16:55 Consult: Onc/Wound/automotive mechanical engineer Routine Comment: Reason for Consult:: Thigh Abscess 09/08/24 08:11 Consult: Plastic Surgery Routine Consulting Provider: Chuckie Kaba Reason for Consult: Left lower extremtiy abscess EMERGENT Consult: Yes MD Notified: Yes Date Notified: 09/08/24 Time Notified: 08:11 Method of Notification: Verbal 09/10/24 19:13 Consult: Infectious Disease Routine Consulting Provider: Chuckie Alicia Reason for Consult: acid fast bacilli EMERGENT Consult: No Notified: Yes Date Notified: 09/10/24 Time Notified: 19:13 Method of Notification: Text 09/11/24 08:09 Consult: Infectious Disease Routine Consulting Provider: Chuckie Alicia Reason for Consult: + AF smear on wound drainage EMERGENT Consult: No MD Notified: Yes Date Notified: 09/11/24 Time Notified: 08:09 Method of Notification: Text 09/13/24 11:22 Consult: Onc/Wound/automotive mechanical engineer Routine Comment: Reason for Consult:: assess pt for wound vac placement to Lt thigh abcess Reason For Visit: DEBILITY Diagnosis Discharge Diagnosis (1) Right thigh pain: Status: Acute Code(s): M79.651 - Pain in right thigh Plan: CT scan with contrast: Soft Tissues: Multiseptated fluid collections extending from the distal third of the thigh to the suprapatellar joint space region as well as posteriorly surrounding the distal femur extending for a length of approximately 14 cm and approximately 7 cm in AP diameter concerning for multiloculated abscess. Atrophic changes of the deep muscular structures. Mild subcutaneous edema and swelling. Vascular calcifications. Bones: Osseous structures are unremarkable without evidence of fracture or dislocation. No lytic or blastic osseous masses. (2) Debility: Status: Acute Code(s): R53.81 - Other malaise (3) Generalized weakness: Status: Acute Code(s): R53.1 - Weakness (4) Abscess of left thigh: Status: Acute Code(s): L02.416 - Cutaneous abscess of left lower limb Plan: S/P I&D on 09/08/24. The abscess extended to the fascia. Aerobic and anaerobic cultures were negative. AF stain was + and the culture is pending. Seen by ID. He was on Levaquin and Azithromycin but, ID discontinued the Levaquin on 09/11/24 and he is still getting Azithromycin. A wound vac was placed and the incision is healing very well. He has no pain in the left thigh and the base of the wound is 100% granulating. the base has filled in and there is no longer undermining. There is no purulent DC and no du-incisional erythema. No induration/swelling and he has no pain with palpation around the wound. He has been AF. (5) PAF (paroxysmal atrial fibrillation): Status: Acute Code(s): I48.0 - Paroxysmal atrial fibrillation Plan: Stable on Amiodarone 200 mg daily and metoprolol XL 25 mg every morning. EKG on the date of discharge shows a normal QT interval with right bundle branch block, left anterior hemiblock and left axis deviation. He was in sinus rhythm. (6) Anticoagulant long-term use: Status: Chronic Code(s): Z79.01 - joint terminal attack controller (current) use of anticoagulants Plan: Eliquis was placed on hold after the morning dose on 09/22/2024 in preparation for anticipated I&D of the R thigh abscess. (7) Antisynthetase syndrome: Status: Chronic Code(s): D89.89 - Other specified disorders involving the immune mechanism, not elsewhere classified (8) Interstitial lung disease: Status: Chronic Code(s): J84.9 - Interstitial pulmonary disease, unspecified Plan: Chronically on Cellcept and Prednisone. Cellcept was discontinued due to the left thigh infection. (9) Steroid dependence: Status: Chronic Code(s): F19.20 - Other psychoactive substance dependence, uncomplicated Plan: Chronically on 10 mg of prednisone daily. (10) Personal history of immunosupression therapy: Status: Chronic Code(s): Z92.25 - Personal history of immunosuppression therapy Plan: CellCept and prednisone (11) Severe protein-energy malnutrition: Status: Acute Code(s): E43 - Unspecified severe protein-calorie malnutrition Plan: Appetite is highly variable.......25-49% at times. Rarely 75-100%. (12) Left upper extremity swelling: Status: Acute Code(s): M79.89 - Other specified soft tissue disorders Plan: Venous US negative. Shingles rash has dried up. Still c/o left hand pain. Has desquamation of the palm. Has also had nail bed cyanosis of both hands and both feet at times. (13) Osteoporosis: Status: Chronic Code(s): M81.0 - Age-related osteoporosis without current pathological fracture Qualifiers: Osteoporosis type: unspecified Presence of current pathological fracture: without current pathological fracture Qualified Code(s): M81.0 - Age- related osteoporosis without current pathological fracture (14) Shingles: Status: Resolved Code(s): B02.9 - Zoster without complications Qualifiers: Herpes zoster complications: unspecified herpes zoster complication Q ualified Code(s): B02.8 - Zoster with other complications Plan: INDIRAE (15) Raynauds disease: Status: Suspected Code(s): I73.00 - Raynaud's syndrome without gangrene Qualifiers: Raynaud?s-associated gangrene presence: without gangrene Qualified Code(s): I73.00 - Raynaud's syndrome without gangrene Plan: Has hand pain in the hands and feet intermittently with cyanotic nail beds. (16) Orthostatic hypotension: Status: Acute Code(s): I95.1 - Orthostatic hypotension Plan: intermittent. Fluid intake falls off at times and he gets dehydrated. Generally improves with hydration. (17) Left thyroid nodule: Status: Chronic Code(s): E04.1 - Nontoxic single thyroid nodule Plan: Worked up in the past and is benign. (18) Kidney stone on right side: Status: Chronic Code(s): N20.0 - Calculus of kidney (19) Mixed hyperlipidemia: Status: Chronic Code(s): E78.2 - Mixed hyperlipidemia (20) GERD (gastroesophageal reflux disease): Status: Chronic Code(s): K21.9 - Gastro-esophageal reflux disease without esophagitis (21) Lung nodule: Status: Chronic Code(s): R91.1 - Solitary pulmonary nodule Plan: This was not mentioned on a CTA of the chest from 08/22/24. Plan 1. Spoke with Dr. Soares at [facility] and she has accepted Shorty for transfer to [facility]. 2. Give an extra 10 mg dose of Prednisone now due to increased stress of infection who has adrenal suppression to to chronic steroid use. 3. Eliquis was placed on hold after the morning dose today. 4. XRAY sent images to [facility] via [facility]X Medications at Discharge Home Medications cyanocobalamin (vitamin B-12) 500 mcg tablet 500 mcg PO DAILY vitamin 07/14/21 denosumab 60 mg/mL subcutaneous syringe (Prolia) 60 mg subcut [id number] low calcuim 07/14/21 pantoprazole 40 mg tablet,delayed release 40 mg PO DAILY reflux 07/14/21 budesonide 0.5 mg/2 mL suspension for nebulization (Pulmicort) 0.5 mg inhalation BID sob 01/01/22 cetirizine 10 mg tablet (Zyrtec) 10 mg PO DAILY PRN allergies 01/01/22 cholecalciferol (vitamin D3) 75 mcg (3,000 unit) tablet 150 mcg PO DAILY vitamin 01/01/22 lactobacillus combination no.9 4 billion cell capsule (Adult 50 Plus Probiotic) 4,000 mmu cells PO DAILY supplement 01/01/22 montelukast 10 mg tablet (Singulair) 10 mg PO DAILY allergies 05/12/23 mycophenolate mofetil 500 mg tablet 3,000 mg PO BID AUTOIMMUNE DISEASE 05/12/23 sulfamethoxazole 800 mg-trimethoprim 160 mg tablet (Bactrim DS) 1 tab PO .MWF ATB #1 TAB 08/30/24 L.acidophil,salivari-Bifido bifidum-Strep thermoph 175 mg capsule 1 cap PO DAILYCM #1 cap 09/22/24 acetaminophen 325 mg tablet 650 mg (2 x 325 mg) PO Q6H PRN PRN Pain Score 1-10 #1 TAB 09/22/24 amiodarone 200 mg tablet 200 mg PO DAILY #1 TAB 09/22/24 apixaban 5 mg tablet (Eliquis) 5 mg PO BID #1 TAB 09/22/24 azithromycin 250 mg tablet 500 mg (2 x 250 mg) PO QHS #1 TAB 09/22/24 duloxetine 20 mg capsule,delayed release 20 mg PO DAILY #1 cap 09/22/24 food supplemt, lactose-reduced 0.08 gram-1.5 kcal/mL oral liquid (Ensure Plus High Protein) 120 ml PO TIDCM #1 mL 09/22/24 gabapentin 300 mg capsule 300 mg PO TID #1 cap 09/22/24 metoprolol succinate 25 mg tablet,extended release 24 hr 25 mg PO DAILY #1 TAB 09/22/24 ondansetron 4 mg disintegrating tablet 4 mg PO Q8H PRN PRN Nausea/Vomiting #1 TAB 09/22/24 prednisone 10 mg tablet 10 mg PO DAILYCM #1 TAB 09/22/24 tramadol 50 mg tablet 50 mg PO Q6H PRN PRN Pain 4-10 #1 TAB 09/22/24 zinc sulfate 50 mg zinc (220 mg) capsule 50 mg PO DAILY #1 cap 09/22/24 Hospital Course Operations - (I&D of left thigh abscess on 09/08/[address] Kaba) Procedures Transthoracic echo and Wound vac placement (Left medial thigh) Summary of Care Provided Minutes Spent on Discharge: 65 Hospital Course: Shiva Verdugo is a 73 YO male with a PMH of with a Past medical history positive for essential hypertension, hyperlipidemia, fatty infiltration of the liver, ILD/antisynthetase syndrome (diagnosed several years ago at a hospital in [place]), chronic immunosuppression with CellCept and prednisone, atrial fibrillation, chronic anticoagulation, nephrolithiasis, history of left thyroid nodule (pathology in April 2024 is positive for benign follicular/colloid nodule), BPH, GERD, osteoporosis (on Prolia), osteoarthritis and gout ( saw Dr. Fair at the [facility] once 6 years ago). He was seen by general surgery in the office in June 2024 for and abscess of the left medial thigh. An incision and drainage was done but unfortunately no cultures were sent. On 08/22/24 he presented to the ED at [facility] c/o with worsening SOB. D-Dimer was WNL. Chest CTA revealed no evidence of pulmonary embolism or dissection. There was mild patchy bilateral ground glass opacities/infiltrates worse on the right side. He was empirically started on azithromycin and Rocephin and admitted to the hospital. He was seen by ID and Acyclovir was added to the drug regimen for shingles of the LUE (he had been started on Valtrex as an OP). CellCept was placed on hold. He improved and was discharged home on 08/24/24 on Cefdinir. He had generalized weakness and very poor exercise. He was falling at home. He had been incontinent of urine and stool. His was not able to care for him. He was seen by his PCP on 08/28/2024 for failure to thrive and a nonhealing left thigh wound. In the emergency department he was noted to have atrial fibrillation with rapid ventricular response. He was admitted to the hospital and cardiology was consulted for recurrent PAF. Metoprolol was increased to 50 [address] scan of the left lower extremity at that time showed a 3.2 cm x 0.7 cm x 1 cm area of overlying skin thickening with a subcentimeter focal area of possible necrosis/early abscess formation. General surgery was consulted and felt that the wound was healing appropriately. On 08/30/2024 he was admitted to the acute inpatient rehab unit at [facility] for 3 hours of therapy daily to restore function/independence at or near his level prior to his recent decline in health. He had been declining in health for approximately 3 months. I first saw this pt on 09/07/24. He c/o pain in the LUE, Left medial thigh, R knee and anteriolateral R thigh. He had some persistent swelling of the LUE. The shingles rash had resolved and there was some desquamation on the palm of the left hand. Venous ultrasound of the left upper extremity was negative for DVT. The right knee had no swelling, joint effusion, erythema or pain with palpation or movement of the joint. He had pain in the suprapatellar area on the right and with palpation of the right anterolateral mid thigh. Periodically the nailbeds of both hands and both feet are cyanotic. He had no fever, night sweats, shaking chills. The wound on the left medial thigh had a marked area of induration surrounding the wound which was very tender to palpation. There was some redness and the wound was covered with a yellow exudate. There was no inguinal adenopathy. Soft tissue ultrasound showed subcutaneous fluid with a maximal dimension of 4.2 cm x 0.9 cm. There was extension superficially to the skin surface. There was surrounding hyperemia. Dr. Kaba from plastic surgery was consulted and the patient was taken to the OR on 09/08/2024 for an incision and drainage. The abscess at the time of surgery measured 10 cm x 5 cm and extended down to the fascia. Aerobic and anaerobic cultures were negative however the AF smear was positive for acid-fast bacilli. The AFB culture is still pending. ID was consulted. He was was taking Levaquin and Azithromycin and ID discontinued Levaquin. He has been AF. He continued to c/o pain in the R knee and Left hand. A wound vac was placed on the left thigh wound and there has been a marked improvement. The base of the wound is now 100% granulating and the wound is filling in. There is no longer any significant undermining and there is no erythema or purulent discharge. He has no pain with palpation of the area around the wound. On 09/22/2024 he developed swelling, redness and increased warmth to touch of the distal R anterolateral thigh. He had pain with palpation. A venous US was obtained and was negative for DVT. CT scan of the right thigh showed a large multiseptated and loculated fluid collection in the distal third of the thigh surrounding the distal femur there were no demonstrated osseous changes. The white blood cell count was 20.3 with 94% neutrophils. Hemoglobin is stable at 13.4 and the platelets were normal. ESR is 52 and the CRP was elevated at 36.7. Lactic acid was high normal at 1.9. Sodium is mildly decreased at 134 and his fluid intake has been down for the past 1 to 2 days. The BUN is 18 with a creatinine of 1.18 which is up from 0.95 on 09/18/2024. This patient is complicated with multisystem disease. He is immunocompromised and on chronic steroids. He has antisynthetase S and ILD. the abscess developed while on appropriate antibiotics. He remains weak with poor exercise tolerance. He is depressed and was started on an antidepressant this week. He is not getting any better. I felt that he needed to be transferred to a tertiary center. He is not appropriate for a [facility] and there is no one at [facility] willing to take him to surgery for an I&D of the abscess. It is multiseptated and loculated and I suspect the surgery will be extensive. I contacted [facility] and spoke with Dr. Soares from the hospitalist service and she graciously agreed to accept Shiva for transfer. He has had a positive HANNA screen in the past in 2014 and the [id number] DNA was also positive at 23 with the highest normal being 9. The PLANE TABLEMAN antibody is positive at 1.4 and SSA was also positive. CPK and aldolase recently were normal. I suspect he has more than just ILD related to the antisynthetase S. He has not followed up with anyone other than Pulmonary since the diagnosis of antisynthetase S. 8-9 years ago in [place]. Physical Exam Const Constitutional Narrative: He appears tired but, he has been getting up in a chair for meals the past few days and he continues to do therapy. He fatigues very easily. He sleeps a lot and has a depressed affect. General Appearance: cooperative HEENT head/scalp atraumatic HEENT Narrative: MM are dry. No thrush and he denies sore mouth and painful swallowing. Eyes PERRL, EOMs intact bilaterally, conjunctivae normal and no scleral icterus Eyes Narrative: No discharge from the eyes. Neck supple Resp normal respiratory effort and no use of accessory muscles Resp Narrative: He has a few fine crackles in the bases. No wheezing. He is not tachypneic and has no conversational dyspnea. There is symmetric chest expansion. There has been no change in his chronic mild cough. Sputum when he is able to produce sputum is clear. Cardio regular rate, regular rhythm and no gallops Cardio Narrative: I do not appreciate a murmur. He has no ectopy today. EKG today showed normal sinus rhythm with a left anterior hemiblock and a right bundle branch block. QTc was normal. GI normal to inspection, nondistended, normoactive bowel sounds, soft to palpation and non-tender GI Narrative: No guarding with palpation. Extremity no calf tenderness Extremity Narrative: The distal right lateral thigh is markedly indurated and boggy to palpation. There is erythema and increased warmth to touch. There are no openings in the skin. There is no effusion in the right knee and the knee is not erythematous. He had no pain with palpation of the knee. He does have pain with palpation in the suprapatellar area/distal anterior quadriceps. He also has pain with palpation of the right lateral and anterior thigh. There were no fluctuant areas. The wound VAC was changed today and I examined the wound while it was off. The left thigh wound is 100% granulating with no exudate. The base is filling in quickly and it is much more superficial now. The size of the wound is scott and there is no longer any undermining. There was no purulent discharge and no odor. He had no periwound erythema and has no pain with palpation around the wound. The wound VAC was replaced. Neuro oriented x3 and CN's II-XII intact bilaterally Neuro Narrative: Marked generalized weakness and poor exercise tolerance. Psych Psych Narrative: Depressed affect. Cooperative. Denies homicidal ideation or suicidal ideation. He is very frustrated because he is not getting any better and it has been 1 complication after another. He has had progressive decline over the past 3 months. Appearance: appropriate Medical Records Data Medical Nutrition Assessment Dietitian: Malnutrition Criteria Met Start: 08/31/24 15:18 Freq: Status: Active Protocol: Document 08/31/24 15:18 SB (Rec: 08/31/24 15:18 SB [id number]) Nutrition Malnutrition Evidence of Malnutrition Exists Yes Malnutrition (severe): Acute Illness/Injury Evidenced By Suboptimal Energy Intake ( Severe),Weight Loss (Severe) Intake Problem Increased Nutrient Needs (specify) Etiology protein related to wound healing Signs/Symptoms as evidenced by boil on left inner thigh. Status Active Problem Clinical Problem Acute Disease or Injury Related Malnutrition Etiology severe malnutrition related to inadequate oral intake Signs/Symptoms as evidenced by 3% unintentional weight loss x 1 week and meeting <75% of estimated energy intake x 2 months. Status Active Problem Recommendation Dietitian Recommendations/Changes Continue liberal regular diet d/t signs and symptoms of malnutrition. Continue 120ml ensure plus high protein TID with medpass and Shay BID with medpass. Will adjust diet to cardiac diet, as appetite improves. Will adjust ONS, as appetite improves. Will monitor weight, as available. Reviewed and approved by Aniyah Powell, RD, LD. Weight / BMI Weight Weight: 175 lb 2 oz Body Mass Index (BMI) 25.1 ABG / Lab / Microbiology Data 09/22/24 12:46 09/22/24 12:46 Laboratory: Laboratory Results - last 24 hr 09/22/24 12:46: WBC 20.3 H, RBC 4.66, Hgb 13.4, Hct 43.0, MCV 92.3, MCH 28.8, M CHC 31.2 L, RDW Std Deviation 52.7 H, RDW Coeff of Oapl 15.6 H, Plt Count 364, MPV 8.8, Immature Gran % (Auto) 0.700, Neut % (Auto) 93.9 H, Lymph % (Auto) 1.5 L, Armstrong % (Auto) 3.3, Eos % (Auto) 0.3, Baso % (Auto) 0.3, Absolute Neuts (auto) 19.1 H, Absolute Lymphs (auto) 0.31 L, Nucleated RBC % 0, ESR 52 H, Sodium 134 L , Potassium 4.1, Chloride 101, Carbon Dioxide 29.0, Anion Gap 5, BUN 18, Creatinine 1.18, Estim Creat Clear Calc 59.29, Est GFR (MDRD) Af Amer 78, Est GFR (MDRD) Non-Af 65, BUN/Creatinine Ratio 15.3, Glucose 120 H, Lactic Acid 1.9, Calcium 10.1, C-React Prot Ext Range 36.70 H Microbiology: Microbiology 09/08/24 20:00 Wound Abcess - Aerobic & Anaerobic Swabs Gram Stain - Final 09/08/24 20:00 Wound Abcess - Aerobic & Anaerobic Swabs Wound Culture - Final No growth aerobically. 09/08/24 20:00 Wound Abcess - Aerobic & Anaerobic Swabs Anaerobic Culture - Final No growth in 5 days. 09/08/24 20:00 Tissue - Leg, Left Gram Stain - Final 09/08/24 20:00 Tissue - Leg, Left Wound Culture - Final No growth aerobically. 09/08/24 20:00 Tissue - Leg, Left Anaerobic Culture - Final No growth in 5 days. 09/08/24 10:15 Wound Abcess - Leg, Left Gram Stain - Final 09/08/24 10:15 Wound Abcess - Leg, Left Wound Culture - Final No growth aerobically. 09/08/24 19:38 Tissue - Leg, Left Fungal Culture - Preliminary 09/08/24 20:00 Tissue - Leg, Left Acid Fast Bacilli Smear - Final 09/08/24 20:00 Tissue - Leg, Left Acid Fast Bacilli Culture - Preliminary 09/09/24 06:15 Stool Stool Occult Blood (SHRUTI) - Final Radiography Diagnostic Testing: Radiology Impression Lower Extremity CT 09/22/24 12:09 IMPRESSION: 1. Large multiseptated and loculated fluid collections in the distal third of the thigh surrounding the distal femur as described above concerning for multiloculated abscess. 2. No demonstrated acute osseous changes. Electronically Signed: Charlie Chakraborty MD at 14:55 EDT , Meaningful Use Info Meaningful Use Meaningful Use Diagnoses (Choose all that apply): None applicable Ischemic Stroke Statin Dosing Therapy Reference: STATIN DOSE THERAPY REFERENCE: * Patients > 75 years receive moderate or high dose statin therapy. * Patients 75 years or YOUNGER should receive HIGH intensity statin dose unless contraindicated. You will be required to document reason for non-treatment if statin daily dose does not meet guidelines. HIGH DOSE STATIN THERAPY DAILY Atorvastatin > than or = to 40 mg Rosuvastatin > than or = to 20 mg Amlodipine + Atorvastatin > than or = to 2.5/40 mg Ezetimibe + Simvastatin 10/80 mg Simvastatin 80mg Discharge Plan Admission Admit Date/Time: 08/30/24 16:21 Primary Reason for Your Visit: multiseptated loculated abscess of the Distal R thigh. Attending Provider: Verónica Arteaga Primary Care Provider: Tanya Pettit Consulting Providers: Carlton Joyner Chi; Chuckie Kaba; Chuckie Alicia Discharge Orders/Prescriptions Prescriptions: New acetaminophen 325 mg Tablet 650 mg PO Q6H PRN PRN (Reason: Pain Score 1-10) Qty: 1 0RF amiodarone 200 mg Tablet 200 mg PO DAILY Qty: 1 0RF Eliquis 5 mg Tablet 5 mg PO BID Qty: 1 0RF Rx Instructions: LAST DOSE 09/22/24 AT 10 AM. ON HOLD FOR ANTICIPATED SURGERY azithromycin 250 mg Tablet 500 mg PO QHS Qty: 1 0RF gabapentin 300 mg Capsule 300 mg PO TID Qty: 1 0RF duloxetine 20 mg Capsule,Delayed Release(Dr/Ec) 20 mg PO DAILY Qty: 1 0RF L.acidoph,saliva-B.bif-S.therm 175 mg Capsule 1 cap PO DAILYCM Qty: 1 0RF Ensure Plus High Protein 0.08 gram-1.5 kcal/mL Liquid 120 ml PO TIDCM Qty: 1 0RF prednisone 10 mg Tablet 10 mg PO DAILYCM Qty: 1 0RF tramadol 50 mg Tablet 50 mg PO Q6H PRN PRN (Reason: Pain 4-10) Qty: 1 0RF metoprolol succinate 25 mg Tablet Extended Release 24 Hr 25 mg PO DAILY Qty: 1 0RF ondansetron 4 mg Tablet,Disintegrating 4 mg PO Q8H PRN PRN (Reason: Nausea/Vomiting) Qty: 1 0RF zinc sulfate 50 mg zinc (220 mg) Capsule 50 mg PO DAILY Qty: 1 0RF Continued pantoprazole 40 mg tablet,delayed release (DR/EC) 40 mg PO DAILY Prolia 60 mg/mL syringe 60 mg subcut [id number] cyanocobalamin (vitamin B-12) 500 mcg tablet 500 mcg PO DAILY cholecalciferol (vitamin D3) 75 mcg (3,000 unit) tablet 150 mcg PO DAILY budesonide [Pulmicort] 0.5 mg/2 mL suspension for nebulization 0.5 mg inhalation BID cetirizine [Zyrtec] 10 mg tablet 10 mg PO DAILY PRN (Reason: allergies) montelukast [Singulair] 10 mg tablet 10 mg PO DAILY sulfamethoxazole-trimethoprim [Bactrim DS] 800-160 mg tablet 1 tab PO .MWF Qty: 1 0RF Rx Instructions: take every MWF Held mycophenolate mofetil 500 mg tablet 3,000 mg PO BID Hold Instructions: Held because of abscess left thigh. Discontinued zinc gluconate 30 mg tablet 30 mg PO DAILY prednisone 1 mg tablet 10 mg PO DAILY gabapentin 100 mg capsule 100 mg PO TID Eliquis 5 mg Tablet 5 mg PO BID 30 Days Qty: 60 2RF metoprolol succinate 50 mg Tablet Extended Release 24 Hr 50 mg PO DAILY Qty: 0 0RF levofloxacin 750 mg tablet 750 mg PO DAILY Qty: 5 0RF No Action Adult 50 Plus Probiotic 4 billion cell capsule 4,000 mmu cells PO DAILY Rx Instructions: administer with a meal Referrals / Follow Up: Yin Villafana-rheumatolgy [Other] - 11/21/24 12:45 pm Fast,DO Tanya [Primary Care Provider] - Chuckie Alicia MD [Med Staff - Active Staff] - Chuckie Kaba MD [Med Staff - Active Staff] - Disposition Disposition (needs filled in before D/C Order can be placed): Acute Care Hospital Charges/Coding Visit Charges Inpatient E&M: 44235 Disch Hosp >30min
[2024-09-22 18:00] VITALS: BP 103/53; PULSE 70; RESP 16; TEMP 36.6; O2SAT 95
[2024-09-22 19:50] VITALS: PULSE 80; RESP 14
[2024-09-22] MEDS: Azithromycin 250 MG Tablet 500 MG PO (22:23)
[2024-09-23 06:00] VITALS: BP 107/61; PULSE 82; RESP 18; TEMP 36.3; O2SAT 95
[2024-09-23] MEDS: Gabapentin 300 MG Capsule PO ×2 (06:22→13:40)
[2024-09-23] MEDS: 0.9% Saline Lock 10 ML Syringe IV ×2 (06:22→11:33)
[2024-09-23] MEDS: Arthritis Pain Compound 60 CLICK TUBE TOPICAL (06:22)
[2024-09-23 07:14] VITALS: PULSE 70; RESP 16
[2024-09-23] MEDS: Budesonide Respules 0.5 MG/2 ML AMPUL.NEB. INHALATION (07:14)
[2024-09-23] MEDS: Montelukast 10 MG Tablet PO (07:52)
[2024-09-23] MEDS: Ensure Plus High Protein 120 ML LIQUID PO ×2 (07:52→11:28)
[2024-09-23] MEDS: predniSONE 10 MG Tablet PO (07:52)
[2024-09-23] MEDS: Lactobacillis Acidophilus 1 CAP PO (07:52)
[2024-09-23] MEDS: Amiodarone 200 MG Tablet PO (07:53)
[2024-09-23] MEDS: Cholecalciferol (Vit D3) 125 MCG CAPSULE (5,000 UNITS) PO (07:53)
[2024-09-23] MEDS: DULoxetine Hcl 20 MG Capsule PO (07:53)
[2024-09-23 07:54] VITALS: PULSE 70
[2024-09-23] MEDS: Cyanocobalamin 500 MCG Tablet PO (07:54)
[2024-09-23] MEDS: Pantoprazole Sodium 40 MG Tablet PO (07:54)
[2024-09-23] MEDS: Metoprolol(XL)Succ 25 MG Tablet PO (07:54)
[2024-09-23] MEDS: Zinc Sulfate 50 mg zinc (220 mg) ORAL capsule PO (07:55)
[2024-09-23] MEDS: Enoxaparin 80 MG/0.8 ML Syringe SC (11:28)
[2024-09-23] MEDS: Meropenem 1 GM in 0.9% Normal Saline (100mL MB+) 100 ML IV (11:32)
[2024-09-23] MEDS: traMADol 50 MG Tablet PO (16:42)
--- NOTE | 2024-09-23 17:32 | NURSING ---
Report called to Siobhan on G80. pt going in bed 34. Spouse present in patients room. [facility] ambulance to pick pt up at 1800.
[2024-09-23 17:40] VITALS: BP 99/61; PULSE 73; RESP 14; TEMP 36.8; O2SAT 95
== END 2024-09-23 19:13 | disposition short-term general hospital (02) | DRG 602 ==
PROVIDERS: Surgery Plastic and Reconstructive Surgery; Admitting Provider Family Medicine Geriatric Medicine; PCP Internal Medicine; Referring Provider Family Medicine Geriatric Medicine; Visit Provider Internal Medicine
DX: L02.416 Cutaneous abscess of left lower limb (principal); E43 Unspecified severe protein-calorie malnutrition; D84.9 Immunodeficiency, unspecified; L97.129 Non-pressure chronic ulcer of left thigh with unspecified severity; I45.2 Bifascicular block; J84.89 Other specified interstitial pulmonary diseases; I48.0 Paroxysmal atrial fibrillation; E04.1 Nontoxic single thyroid nodule; I10 Essential (primary) hypertension; F32.A Depression, unspecified; G62.9 Polyneuropathy, unspecified; K21.9 Gastro-esophageal reflux disease without esophagitis; H57.11 Ocular pain, right eye; I95.1 Orthostatic hypotension; E53.8 Deficiency of other specified B group vitamins; E78.2 Mixed hyperlipidemia; I73.00 Raynaud's syndrome without gangrene; E55.9 Vitamin D deficiency, unspecified; R15.9 Full incontinence of feces; Z79.01 Long term (current) use of anticoagulants; G89.29 Other chronic pain; Z79.51 Long term (current) use of inhaled steroids; B02.9 Zoster without complications; Z86.16 Personal history of COVID-19; N40.0 Benign prostatic hyperplasia without lower urinary tract symptoms; M81.0 Age-related osteoporosis without current pathological fracture; Z23 Encounter for immunization; Z68.25 Body mass index [BMI] 25.0-25.9, adult; R32 Unspecified urinary incontinence; R91.1 Solitary pulmonary nodule; L02.415 Cutaneous abscess of right lower limb
CPT/HCPCS: 36415; 73701; 76882; 80048; 80053; 82085; 82274; 82550; 83605; 83735; 84100; 85025; 85027; 85652; 86140; 87015; 87070; 87075; 87102; 87116; 87205; 87206; 87640; 88304; 90662; 93005; 93971; 94640; 94668; 97110; 97112; 97116; 97162; 97166; 97530; 97535; 97802; 97803; 99252; J2185; Q9967; A4216; G0463

== ENCOUNTER 2024-10-10 18:06 | Inpatient (IN) | payer OTHER, MEDICARE, SELFPAY ==
[2024-10-10] VITALS (9 sets, daily range): BP systolic 86–105; BP diastolic 54–72; PULSE 90–103; RESP 18–24; TEMP 36.8–37; O2SAT 89–99; BMI 24.8
[2024-10-10] MEDS: 0.9% Normal Saline (1000mL) 1,000 ML 999 ML IV ×3 (18:25→21:59)
--- NOTE | 2024-10-10 18:37 | EKG12_ITS ---
Test Reason : DYSRHYTHMIA Blood Pressure : */* mmHG Vent. Rate : 99 BPM Atrial Rate : 85 BPM P-R Int : 120 ms QRS Dur : 136 ms QT Int : 458 ms P-R-T Axes : * -65 -16 degrees QTcB Int : 587 ms Sinus rhythm with occasional Premature ventricular complexes and Premature atrial complexes Right bundle branch block Left anterior fascicular block Bifascicular block Abnormal ECG Confirmed by JOSE ESCALERA, LINSEY ([id number]), television news video editor ASIYA JACKSON ([id number]) on 10/11/2024 8:23:03 AM Referred By: Confirmed By: LINSEY GARCIA MD
--- NOTE | 2024-10-10 18:37 | CT_ITS ---
STUDY: CT BRAIN WITHOUT CONTRAST REASON FOR EXAM: Male, 73 years old. ams RADIATION DOSAGE (If Supplied By Facility): CTDIvol = ( 44.99 ) mGy, DLP = ( 846.73 ) mGycm TECHNIQUE: Transaxial CT imaging of the brain was performed without administration of intravenous contrast material. Individualized dose optimization techniques were used for this CT. COMPARISON: No relevant priors. FINDINGS: Normal soft tissue structures. Normal calvarium. Calcific plaquing of the cavernous carotid and vertebral arteries Mild atrophy and periventricular matter ischemic changes. Normal basal ganglia and thalami. Normal brainstem. Normal cerebellum. There is no intracranial hemorrhage. There are no findings of an acute ischemic infarction. Normal visualized paranasal sinuses. CT/Brain/Head without Contrast IMPRESSION: Mild atrophy and periventricular white matter ischemic change. No acute bleed. If concern for acute infarct MRI recommended Electronically Signed: Curry Mejia MD at 19:38 EST ,
[2024-10-10 18:51] LABS: Absolute Lymphocyte Count 0.44 X10^3/uL (0.83-4.51); Absolute Neutrophil Count 21.5 X10^3/uL (2.0-7.7); Basophil# 0.07 X10^3/uL; Basophil% 0.3 % (0-1); Eosinophil# 0.11 X10^3/uL; Eosinophils% 0.5 % (0-5); Hematocrit 39.4 % (40-54); Hemoglobin 12.5 g/dL (13.0-16.5); Lymphocyte # 0.44 X10^3/ul (0.83-4.51); Lymphocyte % 1.9 % (19-41); Mean Corp Hgb Conc 31.7 g/dL (32-36); Mean Corpuscular Hgb 29.1 pg (27.0-32.0); Mean Corpuscular Volume 91.8 fL (80-94); Mean Platelet Vol. 9.2 fl (6.2-12.0); Monocyte% 6.3 % (0-10); NRBC Flagged by Analyzer 0 % (0-5); Neutrophil # 21.46 X10^3/uL (2.7-7.7); Neutrophil % 90.2 % (47-70); POSITIVE DIFFERENTIAL YES; Platelet Count 442 K/mm3 (150-450); RBC Distribution Width SD 53.5 fl (35.1-43.9); Red Blood Count 4.29 M/mm3 (4.6-6.2); White Blood Count 23.8 K/mm3 (4.4-11.0)
--- NOTE | 2024-10-10 19:03 | RAD_ITS ---
STUDY: X-RAY CHEST REASON FOR EXAM: Male, 73 years old. ams TECHNIQUE: PA and lateral COMPARISON: August 28, 2024 FINDINGS: There is less than optimal inspiratory effort and bilateral lower lobe infiltrates or atelectasis. There is no demonstrated pleural abnormality. Normal size heart. Normal mediastinum and tete. Normal visualized pulmonary arteries. Normal visualized aortic arch and descending thoracic aorta. Normal visualized thoracic spine. Normal visualized ribs, clavicles, and shoulders. Nonspecific bowel distention within the upper abdomen. RAD/Chest PA and Lateral IMPRESSION: Bilateral lower lobe atelectasis or infiltrates. Electronically Signed: Curry Mejia MD at 19:46 EST ,
--- NOTE | 2024-10-10 19:08 | CT_ITS ---
STUDY: CT ABDOMEN AND PELVIS WITH CONTRAST REASON FOR EXAM: Male, 73 years old. abd pain RADIATION DOSAGE (If Supplied By Facility): CTDIvol = ( 14.43 ) mGy, DLP = ( 776.60 ) mGycm TECHNIQUE: Transaxial images were obtained from the dome of the diaphragm to the symphysis pubis without oral contrast. 100ml-[id number] was administered. Sagittal and coronal images were reconstructed. Individualized dose optimization techniques were used for this CT. COMPARISON: None. FINDINGS: Bibasilar chronic interstitial thickening. Heart size is normal. There is multivessel coronary artery calcification Normal liver. Normal gallbladder and extrahepatic biliary system. Normal spleen. Normal pancreas. Normal bilateral adrenal glands. Multiple bilateral nonobstructing renal calculi. There is also a simple cyst in each kidney which will not require additional imaging Mild nonspecific gastric distention with thickening of the hill of the gastroduodenal junction may be consistent with nonspecific gastroduodenitis. Normal small intestine. Nonspecific fecal retention in the colon and rectal impaction.. No evidence for acute appendicitis Minor atherosclerotic change of the aorta without evidence for aneurysm. Normal inferior vena cava. Normal retroperitoneum. Normal urinary bladder. Large fat-containing right inguinal hernia. . Lumbar spine demonstrates degenerative change. Chronic wedging of superior endplates of T12 and T11 CT/Abdomen/Pelvis W IV Cont ONLY IMPRESSION: Findings which may be consistent with nonspecific gastroduodenitis Bilateral nephrolithiasis without evidence for renal obstruction Diffuse fecal retention within the colon and mild rectal impaction of uncertain clinical significance. No evidence for small bowel obstruction or other acute findings Electronically Signed: Curry Mejia MD at 20:43 EST Reading Location ID and State: [facility] / [place] Tel , Service support ,
[2024-10-10 19:10] LABS: International Normalized Ratio 1.8; Prothrombin Time (Protime)PT. 20.4 SECONDS (11.7-14.9)
[2024-10-10 19:14] LABS: ALB/GLOB Ratio 0.6 RATIO (0.9-2.4); AST(SGOT) 13 U/L (15-37); Alanine Aminotransfer ALT/SGPT 20 U/L (16-61); Albumin, Serum 2.2 g/dL (3.2-5.0); Alkaline Phosphatase 59 U/L (45-117); Anion Gap 5 (5-15); BUN 18 mg/dL (7-18); BUN/Creat Ratio 15.3 RATIO (10-20); Calcium,Total 10.3 mg/dL (8.5-10.1); Chloride 103 mmol/L (98-107); Creatinine, Serum 1.18 mg/dL (0.70-1.30); EST Glomerular Filtration Rate 65 mL/min (>60); Est Glom Filt Rate - Afr Amer 78 mL/min (>60); Estimated Creatinine Clearance 59.29 ml/min; Globulin 3.7 g/dL (2.2-4.2); Glucose 116 mg/dL (74-106); Potassium 3.3 mmol/L (3.5-5.1); Protein, Total 5.9 g/dL (6.4-8.2); Sodium Level 136 mmol/L (136-145); Troponin-I HS 7 pg/mL (3.0-78.0)
[2024-10-10 19:19] LABS: Lactic Acid 1.5 mmol/L (0.4-1.9)
[2024-10-10 19:28] LABS: Differential Indicated SCAN CRITERIA MET
--- NOTE | 2024-10-10 19:40 | RAD_ITS ---
STUDY: X-RAY - RIGHT FEMUR REASON FOR STUDY: Male, 73 years old. History of abscess TECHNIQUE: 3 view(s) of the femur. COMPARISON: None. FINDINGS: Normal visualized femur. Normal visualized soft tissue structure. RAD/Femur Min 2 Views IMPRESSION: Normal x-ray examination of the femur. Electronically Signed: Curry Mejia MD at 20:19 EST ,
--- NOTE | 2024-10-10 19:40 | RAD_ITS ---
STUDY: X-RAY - RIGHT KNEE REASON FOR EXAM: Male, 73 years old. hx of abscess TECHNIQUE: 3 view(s) of the knee. COMPARISON: None. FINDINGS: Normal visualized distal femur. Normal visualized proximal fibula. There is a radiolucency with sclerotic margins in the proximal medial tibial shaft possibly representing healing hairline fracture. Normal proximal tibiofibular articulation. Narrowed medial femorotibial compartment. Normal lateral femorotibial compartment. Narrowed lateral compartment of the patellofemoral articulation. Surgical clips in the soft tissues of the lateral knee RAD/Knee 3 Views IMPRESSION: No evidence for acute fracture or dislocation. Degenerative changes. . Postsurgical changes of the lateral knee. No definitive evidence for acute osteomyelitis or focal abscess Electronically Signed: Curry Mejia MD at 20:19 EST Reading Location ID and State: [address] [place] [address] Tel , Service support ,
[2024-10-10 20:06] LABS: Hypochromasia RARE; Platelet Estimate ADEQUATE (ADEQ)
--- NOTE | 2024-10-10 20:10 | EDS_ITS ---
HPI History of Present Illness Chief Complaint: Alt LOC Narrative Narrative: Patient is a 73-year-old male with a past medical history of BPH, GERD, atrial fibrillation on Eliquis, abscess of left thigh, hypertension, asthma who presents to the emergency department the chief complaint of low blood pressure, generalized weakness not acting himself. According to family by bedside she states that they noted that he had a low blood pressure at the facility today and was not acting himself therefore they brought him here for further evaluation management. They noted that towards the beginning of the month he was here and ultimately was transferred to [facility] for an abscess where he underwent surgery and ultimately was transferred to a facility afterwards. They state that they are unsure if the abscesses are returning or if something else is coming on therefore they brought him here for further evaluation management. They also note that they feel that he is dehydrated as well. [facility] Medical History Allergic rhinitis Major depressive disorder BPH (benign prostatic hyperplasia) Low back pain Disorder of zinc metabolism GERD (gastroesophageal reflux disease) Osteoporosis Adult failure to thrive Right bundle branch block Hypertension Atrial fibrillation Dysphagia, oropharyngeal Abscess of right lower extremity Personal history of immunosupression therapy Orthostatic hypotension PAF (paroxysmal atrial fibrillation) Steroid dependence Neuropathic pain Antisynthetase syndrome History of shingles Ambulatory dysfunction Shingles Abscess of left thigh BOOP (bronchiolitis obliterans with organizing pneumonia) Wears glasses High cholesterol Easy bruising Back pain Injury of head and neck Blackout Gastric reflux Non-smoker On home oxygen therapy Hoarseness Chronic cough History of echocardiogram Hypertension History of stress test Cardiology follow-up encounter History of atrial fibrillation Atrial fibrillation COVID-19 Osteoporosis Kidney stones Atrial fibrillation RBBB (right bundle branch block) Antisynthetase syndrome Essential hypertension Mixed hyperlipidemia Asthma Interstitial lung disease GERD (gastroesophageal reflux disease) Fatty liver BPH (benign prostatic hyperplasia) Lung nodule Vasovagal syncope Abnormal cardiac CT angiography Home Medications ?Medication ?Instructions ?Recorded ?Last Taken ?Type cyanocobalamin (vitamin B-12) 500 500 mcg PO DAILY vitamin 07/14/21 Unknown History mcg tablet denosumab 60 mg/mL subcutaneous 60 mg subcut [id number] low calcuim 07/14/21 Unknown History syringe (Prolia) pantoprazole 40 mg tablet,delayed 40 mg PO DAILY reflux 07/14/21 08/30/24 History release budesonide 0.5 mg/2 mL suspension 0.5 mg inhalation BID sob 01/01/22 08/30/24 History for nebulization (Pulmicort) cetirizine 10 mg tablet (Zyrtec) 10 mg PO DAILY PRN allergies 01/01/22 08/30/24 History cholecalciferol (vitamin D3) 75 150 mcg PO DAILY vitamin 01/01/22 08/30/24 History mcg (3,000 unit) tablet lactobacillus combination no.9 4 4,000 mmu cells PO DAILY supplement 01/01/22 08/30/24 History billion cell capsule (Adult 50 Plus Probiotic) montelukast 10 mg tablet 10 mg PO DAILY allergies 05/12/23 08/30/24 History (Singulair) mycophenolate mofetil 500 mg tablet 3,000 mg PO BID AUTOIMMUNE DISEASE 05/12/23 Unknown History sulfamethoxazole 800 1 tab PO .MWF ATB #1 TAB 08/30/24 Unknown Rx mg-trimethoprim 160 mg tablet (Bactrim DS) L.acidophil,salivari-Bifido 1 cap PO DAILYCM #1 cap 09/22/24 Unknown Rx bifidum-Strep thermoph 175 mg capsule acetaminophen 325 mg tablet 650 mg (2 x 325 mg) PO Q6H PRN PRN 09/22/24 Unknown Rx Pain Score 1-10 #1 TAB amiodarone 200 mg tablet 200 mg PO DAILY #1 TAB 09/22/24 Unknown Rx apixaban 5 mg tablet (Eliquis) 5 mg PO BID #1 TAB 09/22/24 Unknown Rx azithromycin 250 mg tablet 500 mg (2 x 250 mg) PO QHS #1 TAB 09/22/24 Unknown Rx duloxetine 20 mg capsule,delayed 20 mg PO DAILY #1 cap 09/22/24 Unknown Rx release food supplemt, lactose-reduced 120 ml PO TIDCM #1 mL 09/22/24 Unknown Rx 0.08 gram-1.5 kcal/mL oral liquid (Ensure Plus High Protein) gabapentin 300 mg capsule 300 mg PO TID #1 cap 09/22/24 Unknown Rx metoprolol succinate 25 mg 25 mg PO DAILY #1 TAB 09/22/24 Unknown Rx tablet,extended release 24 hr ondansetron 4 mg disintegrating 4 mg PO Q8H PRN PRN 09/22/24 Unknown Rx tablet Nausea/Vomiting #1 TAB prednisone 10 mg tablet 10 mg PO DAILYCM #1 TAB 09/22/24 Unknown Rx tramadol 50 mg tablet 50 mg PO Q6H PRN PRN Pain 4-10 #1 09/22/24 Unknown Rx TAB zinc sulfate 50 mg zinc (220 mg) 50 mg PO DAILY #1 cap 09/22/24 Unknown Rx capsule ascorbic acid (vitamin C) 500 mg 500 mg PO QHS 10/10/24 Unknown History capsule ethambutol 400 mg tablet 400 mg PO DAILY 10/10/24 Unknown History loratadine 10 mg tablet 10 mg PO QHS 10/10/24 Unknown History rifabutin 150 mg capsule 150 mg PO DAILY 10/10/24 Unknown History Allergy/AdvReac Type Severity Reaction Status Date / Time monosodium glutamate Allergy Abd Verified 10/10/24 18:08 cramps/diarrhea Penicillins (PCN) Allergy Rash Verified 10/10/24 18:08 allopurinol AdvReac Unknown cough Verified 10/10/24 18:08 morphine AdvReac Other Verified 10/10/24 18:08 tamsulosin (From Flomax) AdvReac Other Verified 10/10/24 18:08 Family History Grandfather CVA (cerebral vascular accident) Grandmother Congestive heart failure Grandmother Cardiac pacemaker in situ Mother Heart disease Hypertension Father Heart disease Cardiac arrhythmia Surgical History History of incision and drainage Hx of cystoscopy History of umbilical hernia repair History of inguinal hernia repair Social History household members: spouse Smoking Status: Never smoker alcohol intake: current details: Rare substance use type: does not use caffeine: Yes Type: coffee Number of servings: 1 ROS ROS ED ROS Narrative Constitutional: Denies any fevers, chills, headaches, lightness, dizziness Eyes: Denies change in vision double vision blurry vision Cardiovascular: Denies chest pain Respiratory: Complains of shortness of breath and cough Abdomen: Denies abdominal pain nausea vomit diarrhea : Denies any urinary symptoms Neurological: States that his mental status is waxing and waning seems to be getting better with IV fluids Skin: Complains of surgical incision noted to the right lateral leg EXAM Physical Exam Narrative Exam Narrative: General: Patient lying in bed rest comfortably did not appear to be in acute distress Head: Atraumatic, normocephalic Eyes: PERRL bilateral, EOMI bilateral no conjunctival injection noted Neck: Soft, supple, trachea midline Cardiovascular: Regular rate and rhythm no murmurs gallops rubs noted Respiratory: Clear to auscultation bilaterally no rales rhonchi or wheeze noted Abdomen: Soft, nondistended, diffuse tenderness to palpation no rebound or guarding on exam Extremities: Radial pulses +2/4 in the bilateral per extremities, no pedal edema on exam Neurological: Patient was confused on where he was exactly was able to tell me his name Skin: Warm, dry, surgical incision on the right lateral aspect of his leg is healing well without any evidence infection no purulent discharge noted. Patient's wound noted to the inner left thigh appears to be well-healing no concern for active infection currently Const Vital Signs: 10/10/24 18:08 10/10/24 18:13 10/10/24 18:14 Temperature 98.6 F 98.6 F Temperature Source Oral Oral Pulse Rate 95 103 H 103 H Respiratory Rate 18 24 H 22 H Blood Pressure 93/54 L 93/54 L 86/61 L Blood Pressure Mean 67 67 69 Pulse Ox 94 89 99 Oxygen Delivery Method Room Air Room Air Nasal Cannula Oxygen Flow Rate (L/min) 2 10/10/24 18:40 10/10/24 19:14 10/10/24 20:00 Temperature Temperature Source Pulse Rate 99 95 Respiratory Rate 19 H 18 Blood Pressure 94/61 104/66 Blood Pressure Mean 72 78 Pulse Ox 99 99 Oxygen Delivery Method Room Air Nasal Cannula Oxygen Flow Rate (L/min) 10/10/24 21:00 10/10/24 22:00 10/10/24 22:08 Temperature 98.3 F Temperature Source Pulse Rate 98 91 91 Respiratory Rate 19 H 19 H 19 H Blood Pressure 94/56 L 105/61 105/61 Blood Pressure Mean 68 75 75 Pulse Ox 98 99 99 Oxygen Delivery Method Nasal Cannula Nasal Cannula Oxygen Flow Rate (L/min) 2 MDM MDM MDM Narrative Medical decision making narrative: Patient is a 73-year-old male who presents to the emergency department chief complaint of generalized weakness, altered mental status. Patient will have workup performed here on the differential diagnose includes not be limited to pneumonia, ACS, upper respiratory infection second viral etiology, abscess, UTI. Once workup is obtained reviewed he will be reevaluated. Patient was given 30 cc/kg bolus of IV fluids and then be reevaluated. Patient CBC reviewed and showed no evidence of leukocytosis white blood count was noted to be 23,000, hemoglobin 12.5, platelet count was noted to be 442. Patient's INR normal noted be 1.8, PT of 20.4 he is on Eliquis, sodium was noted to be normal at 136, potassium 3.3, creatinine was 1.18. Patient's AST and ALT were 13 and 20 respectively, troponin was normal at 7. Patient's EKG was reviewed and independently interpreted by myself which showed sinus rhythm with premature ventricular complexes evidence of right bundle branch block. Patient lactic acid normal at 1.5,, urinalysis reviewed and was significant earlier evidence of infection with 100 leukocyte esterase 50-100 white cells and 2+ bacteria he will be given meropenem and this will be sent for culture. Patient's x-ray of his knee was reviewed and showed no evidence of acute fracture dislocation degenerative changes postsurgical changes of the lateral knee noted no definitive evidence of acute osteomyelitis or focal abscess. Patient's femur x-ray reviewed and showed no acute findings of the femur. These were reviewed by myself and by radiology. Patient's CT head and brain showed mild atrophy and periventricular white matter ischemic change no acute bleed. Patient's CT abdomen pelvis with IV contrast showed consistent with nonspecific gastroduodenitis bilateral nephrolithiasis without evidence of renal obstruction diffuse fecal retention within the colon mild rectal impaction of uncertain clinical significance no evidence of small bowel obstruction or other acute findings. At this point in time the patient did test positive for COVID-19 here in the emergency department and he is hypoxic according to family at bedside he is not chronically on oxygen supplementation which she is requiring here. Also with his generalized weakness and other findings he will require admission. Discussed case with hospitalist Dr. Oliveira who accept patient for admission. Patient was notified as well as family members at bedside all question concerns answered. Lab Data Labs: Laboratory Results - last 24 hr 10/10/24 10/10/24 18:20 20:55 WBC 23.8 H RBC 4.29 L Hgb 12.5 L Hct 39.4 L MCV 91.8 MCH 29.1 MCHC 31.7 L RDW Std Deviation 53.5 H RDW Coeff of Opal 16.0 H Plt Count 442 MPV 9.2 Immature Gran % (Auto) 0.800 Neut % (Auto) 90.2 H Lymph % (Auto) 1.9 L [place] % (Auto) 6.3 Eos % (Auto) 0.5 Baso % (Auto) 0.3 Absolute Neuts (auto) 21.5 H Absolute Lymphs (auto) 0.44 L Nucleated RBC % 0 Differential Comment Platelet Estimate ADEQUATE Hypochromasia RARE PT 20.4 H INR 1.8 APTT 35.0 Sodium 136 Potassium 3.3 L Chloride 103 Carbon Dioxide 28.0 Anion Gap 5 BUN 18 Creatinine 1.18 Estim Creat Clear Calc 59.29 Est GFR (MDRD) Af Amer 78 Est GFR (MDRD) Non-Af 65 BUN/Creatinine Ratio 15.3 Glucose 116 H Lactic Acid 1.5 Calcium 10.3 H Total Bilirubin 0.50 AST 13 L ALT 20 Alkaline Phosphatase 59 Troponin I High Sens 7 Total Protein 5.9 L Albumin 2.2 L Globulin 3.7 Albumin/Globulin Ratio 0.6 L Urine Color Yellow Urine Clarity Cloudy Urine pH 6.0 Ur Specific [place] 1.010 Urine Protein 30 H Urine Glucose (UA) Normal Urine Ketones Negative Urine Occult Blood 250 H Urine Nitrite Negative Urine Bilirubin Negative Urine Urobilinogen Normal Ur Leukocyte Esterase 100 H Urine RBC 10-25 SEEN Urine WBC 50-100 SEEN Ur Squamous Epith Cells 0-5 SEEN Calcium Oxalate Crystal 2+ Urine Bacteria 2+ Hyaline Casts 10-25 SEEN Fine Granular Casts 0-5 SEEN Urine Mucus 3+ Radiography Diagnostic Testing: Clinical Impression(s) from Imaging Studies Brain CT 10/10/24 18:37 IMPRESSION: Mild atrophy and periventricular white matter ischemic change. No acute bleed. If concern for acute infarct MRI recommended Electronically Signed: Curry Mejia MD at 19:38 EST Reading Location ID and State: [facility] / [place] Tel , Service support , Chest X-Ray 10/10/24 19:03 IMPRESSION: Bilateral lower lobe atelectasis or infiltrates. Electronically Signed: Curry Mejia MD at 19:46 EST Reading Location ID and State: [address] [place] [address] Tel [phone], Service support , Abdomen/Pelvis CT 10/10/24 19:08 IMPRESSION: Findings which may be consistent with nonspecific gastroduodenitis Bilateral nephrolithiasis without evidence for renal obstruction Diffuse fecal retention within the colon and mild rectal impaction of uncertain clinical significance. No evidence for small bowel obstruction or other acute findings Electronically Signed: Curry Mejia MD at 20:43 EST Reading Location ID and State: [address] [place] [address] Tel [phone], Service support , Femur X-Ray 10/10/24 19:40 IMPRESSION: Normal x-ray examination of the femur. Electronically Signed: Curry Mejia MD at 20:19 EST Reading Location ID and State: [address] [place] [address] Tel [phone], Service support , Knee X-Ray 10/10/24 19:40 IMPRESSION: No evidence for acute fracture or dislocation. Degenerative changes. . Postsurgical changes of the lateral knee. No definitive evidence for acute osteomyelitis or focal abscess Electronically Signed: Curry Mejia MD at 20:19 EST Reading Location ID and State: [address] [place] [address] Tel [phone], Service support , Discharge Plan Triage Chief Complaint: Alt LOC ED Provider: Sawyer Nelson Dx/Rx/DC Orders Clinical Impression: Hypoxia, COVID-19, Acute UTI Prescriptions: No Action pantoprazole 40 mg tablet,delayed release (DR/EC) 40 mg PO DAILY Prolia 60 mg/mL syringe 60 mg subcut [id number] cyanocobalamin (vitamin B-12) 500 mcg tablet 500 mcg PO DAILY cholecalciferol (vitamin D3) 75 mcg (3,000 unit) tablet 150 mcg PO DAILY Adult 50 Plus Probiotic 4 billion cell capsule 4,000 mmu cells PO DAILY Rx Instructions: administer with a meal budesonide [Pulmicort] 0.5 mg/2 mL suspension for nebulization 0.5 mg inhalation BID cetirizine [Zyrtec] 10 mg tablet 10 mg PO DAILY PRN (Reason: allergies) mycophenolate mofetil 500 mg tablet 3,000 mg PO BID montelukast [Singulair] 10 mg tablet 10 mg PO DAILY sulfamethoxazole-trimethoprim [Bactrim DS] 800-160 mg tablet 1 tab PO .MWF Qty: 1 0RF Rx Instructions: take every MWF acetaminophen 325 mg Tablet 650 mg PO Q6H PRN PRN (Reason: Pain Score 1-10) Qty: 1 0RF amiodarone 200 mg Tablet 200 mg PO DAILY Qty: 1 0RF Eliquis 5 mg Tablet 5 mg PO BID Qty: 1 0RF Rx Instructions: LAST DOSE 09/22/24 AT 10 AM. ON HOLD FOR ANTICIPATED SURGERY azithromycin 250 mg Tablet 500 mg PO QHS Qty: 1 0RF gabapentin 300 mg Capsule 300 mg PO TID Qty: 1 0RF duloxetine 20 mg Capsule,Delayed Release(Dr/Ec) 20 mg PO DAILY Qty: 1 0RF L.acidoph,saliva-B.bif-S.therm 175 mg Capsule 1 cap PO DAILYCM Qty: 1 0RF Ensure Plus High Protein 0.08 gram-1.5 kcal/mL Liquid 120 ml PO TIDCM Qty: 1 0RF prednisone 10 mg Tablet 10 mg PO DAILYCM Qty: 1 0RF tramadol 50 mg Tablet 50 mg PO Q6H PRN PRN (Reason: Pain 4-10) Qty: 1 0RF metoprolol succinate 25 mg Tablet Extended Release 24 Hr 25 mg PO DAILY Qty: 1 0RF ondansetron 4 mg Tablet,Disintegrating 4 mg PO Q8H PRN PRN (Reason: Nausea/Vomiting) Qty: 1 0RF zinc sulfate 50 mg zinc (220 mg) Capsule 50 mg PO DAILY Qty: 1 0RF ascorbic acid (vitamin C) 500 mg capsule 500 mg PO QHS loratadine 10 mg tablet 10 mg PO QHS ethambutol 400 mg tablet 400 mg PO DAILY rifabutin 150 mg capsule 150 mg PO DAILY Primary Care Provider: Tanya Pettit Referrals: Wilver,Tanya, DO [Primary Care Provider] - Print Language: Taiwanese Disposition Disposition: Acute Care [facility]
[2024-10-10 21:29] LABS: Color, Urine Yellow (Yellow); Glucose, Dipstick Normal (Normal); Ketone-Dipstick Negative (Negative); Leukocyte Esterase-Dipstick 100 /ul (Negative); Nitrite-Dipstick Negative (Negative); Occult Blood-Urine 250 /ul (Negative); Protein-Dipstick 30 mg/dl (Negative); Urine Bilirubin Dipstick Negative (Negative); Urine Clarity Cloudy (Clear); Urine Urobilinogen Normal (Normal)
[2024-10-10 21:54] LABS: Bacteria 2+ /hpf (None Seen); Mucous, Urine 3+ /hpf (<or=2+); Squamous Epithelial Cells - UA 0-5 SEEN /hpf (0-5); White Blood Cells 50-100 SEEN /hpf (0-5)
[2024-10-10 21:56] LABS: Hyaline Cast 10-25 SEEN /lpf (0-5)
[2024-10-10 21:58] LABS: Calcium Oxalate Crystals Ur 2+ /hpf (<or=2+)
[2024-10-10 22:01] LABS: Red Blood Cells-Urine 10-25 SEEN /hpf (0-5)
[2024-10-10 22:02] LABS: Fine Granular Cast- Urine 0-5 SEEN /lpf (0-5)
--- NOTE | 2024-10-10 22:16 | PCM.HP.STD ---
[facility] - General General Date of Admission: 10/10/24 Date of Service: 10/10/24 Chief Complaint: AMS and Low Blood Pressure. HPI Narrative YARON VERDUGO, is a 73 M with a past medical history of essential hypertension; on metoprolol, hyperlipidemia, paroxysmal atrial fibrillation; on amiodarone and apixaban, history of BOOP, history of asthma/ILD with antisynthetase syndrome; on CellCept and prednisone on chronic suppressive Bactrim DS and azithromycin, chronic hypoxic respiratory failure on 2 L nasal (intermittent), recent cutaneous abscess of Left thigh with chronically nonhealing wound; s/p I&D on September 08, 2024 with abscess extending to fascia with positive acid-fast stain on ethambutol and rifabutin followed previously by Dr. Alicia of infectious diseases with patient ultimately sent to [facility] under the care of Dr. Soares, history of shingles, history of COVID-19, history of RBBB, history of Left thyroid nodule (04/2024) with biopsy positive for benign follicular/colloid nodule, history of umbilical hernia repair, history of inguinal hernia repair, history of orthostatic hypotension, history of NAFLD, disorder of zinc metabolism, history of renal calculi; s/p stent (2020), chronic neuropathic pain; on as needed tramadol and gabapentin, depression; on duloxetine, BPH, GERD chronic severe protein calorie malnutrition with oropharyngeal dysphagia and adult [id number] with generalized weakness and frequent falls, osteoporosis; on Prolia, history of gout, osteoarthritis and chronically strained relationship with his complicating his previous admission who re-presents to [facility] after staff at his [facility] noted altered mental status and low blood pressure. Mr. Verdugo is not a fully reliable historian at this time so information From chart, medical staff and computer. According to the records the family informed the ER physician that the ECF staff contacted them and noted he was not acting like himself with significant confusion and unspecified hypotension culminating in patient being recommended to transfer to the ER for further evaluation and treatment. The family also stated they felt the patient was dehydrated and they were unsure if the abscesses in his thigh were returning or he had some other source of infection. In the ER he was noted to have severe leukocytosis of 23.8K present on admission along with a urinalysis positive for evidence of acute cystitis; with microscopic hematuria concerning for sepsis complicated by clinical evidence of septic encephalopathy along with a CT scan of the abdomen and pelvis consistent with nonspecific gastroduodenitis in addition to bilateral nephrolithiasis without evidence for renal obstruction and diffuse fecal retention within the colon and mild rectal impaction of uncertain clinical significance plus laboratory evidence of hypokalemia of 3.3 mmol/L present on admission. I spoke with the ER physician and the swing shift hospitalist who is familiar with this patient from his recent admission with a strong recommendation patient should transfer to [facility] given his acute severe illness, chronic medical complexity and suboptimal relationship dynamics with his . While we are awaiting a bed patient had sepsis orders written with patient started on empiric IV Merrem in addition to sepsis fluid boluses per protocol. He was then admitted to the ICU for ongoing care for stay that is expected to extend beyond 2 midnights. [facility] Medical History Allergic rhinitis Major depressive disorder BPH (benign prostatic hyperplasia) Low back pain Disorder of zinc metabolism GERD (gastroesophageal reflux disease) Osteoporosis Adult failure to thrive Right bundle branch block Hypertension Atrial fibrillation Dysphagia, oropharyngeal Abscess of right lower extremity Personal history of immunosupression therapy Orthostatic hypotension PAF (paroxysmal atrial fibrillation) Steroid dependence Neuropathic pain Antisynthetase syndrome History of shingles Ambulatory dysfunction Shingles Abscess of left thigh BOOP (bronchiolitis obliterans with organizing pneumonia) Wears glasses High cholesterol Easy bruising Back pain Injury of head and neck Blackout Gastric reflux Non-smoker On home oxygen therapy Hoarseness Chronic cough History of echocardiogram Hypertension History of stress test Cardiology follow-up encounter History of atrial fibrillation Atrial fibrillation COVID-19 Osteoporosis Kidney stones Atrial fibrillation RBBB (right bundle branch block) Antisynthetase syndrome Essential hypertension Mixed hyperlipidemia Asthma Interstitial lung disease GERD (gastroesophageal reflux disease) Fatty liver BPH (benign prostatic hyperplasia) Lung nodule Vasovagal syncope Abnormal cardiac CT angiography Home Medications ?Medication ?Instructions ?Recorded ?Last Taken ?Type cyanocobalamin (vitamin B-12) 500 500 mcg PO DAILY vitamin 07/14/21 Unknown History mcg tablet denosumab 60 mg/mL subcutaneous 60 mg subcut [id number] low calcuim 07/14/21 Unknown History syringe (Prolia) pantoprazole 40 mg tablet,delayed 40 mg PO DAILY reflux 07/14/21 08/30/24 History release budesonide 0.5 mg/2 mL suspension 0.5 mg inhalation BID sob 01/01/22 08/30/24 History for nebulization (Pulmicort) cetirizine 10 mg tablet (Zyrtec) 10 mg PO DAILY PRN allergies 01/01/22 08/30/24 History cholecalciferol (vitamin D3) 75 150 mcg PO DAILY vitamin 01/01/22 08/30/24 History mcg (3,000 unit) tablet lactobacillus combination no.9 4 4,000 mmu cells PO DAILY supplement 01/01/22 08/30/24 History billion cell capsule (Adult 50 Plus Probiotic) montelukast 10 mg tablet 10 mg PO DAILY allergies 05/12/23 08/30/24 History (Singulair) mycophenolate mofetil 500 mg tablet 3,000 mg PO BID AUTOIMMUNE DISEASE 05/12/23 Unknown History sulfamethoxazole 800 1 tab PO .MWF ATB #1 TAB 08/30/24 Unknown Rx mg-trimethoprim 160 mg tablet (Bactrim DS) L.acidophil,salivari-Bifido 1 cap PO DAILYCM #1 cap 09/22/24 Unknown Rx bifidum-Strep thermoph 175 mg capsule acetaminophen 325 mg tablet 650 mg (2 x 325 mg) PO Q6H PRN PRN 09/22/24 Unknown Rx Pain Score 1-10 #1 TAB amiodarone 200 mg tablet 200 mg PO DAILY #1 TAB 09/22/24 Unknown Rx apixaban 5 mg tablet (Eliquis) 5 mg PO BID #1 TAB 09/22/24 Unknown Rx azithromycin 250 mg tablet 500 mg (2 x 250 mg) PO QHS #1 TAB 09/22/24 Unknown Rx duloxetine 20 mg capsule,delayed 20 mg PO DAILY #1 cap 09/22/24 Unknown Rx release food supplemt, lactose-reduced 120 ml PO TIDCM #1 mL 09/22/24 Unknown Rx 0.08 gram-1.5 kcal/mL oral liquid (Ensure Plus High Protein) gabapentin 300 mg capsule 300 mg PO TID #1 cap 09/22/24 Unknown Rx metoprolol succinate 25 mg 25 mg PO DAILY #1 TAB 09/22/24 Unknown Rx tablet,extended release 24 hr ondansetron 4 mg disintegrating 4 mg PO Q8H PRN PRN 09/22/24 Unknown Rx tablet Nausea/Vomiting #1 TAB prednisone 10 mg tablet 10 mg PO DAILYCM #1 TAB 09/22/24 Unknown Rx tramadol 50 mg tablet 50 mg PO Q6H PRN PRN Pain 4-10 #1 09/22/24 Unknown Rx TAB zinc sulfate 50 mg zinc (220 mg) 50 mg PO DAILY #1 cap 09/22/24 Unknown Rx capsule ascorbic acid (vitamin C) 500 mg 500 mg PO QHS 10/10/24 Unknown History capsule ethambutol 400 mg tablet 400 mg PO DAILY 10/10/24 Unknown History loratadine 10 mg tablet 10 mg PO QHS 10/10/24 Unknown History rifabutin 150 mg capsule 150 mg PO DAILY 10/10/24 Unknown History Allergy/AdvReac Type Severity Reaction Status Date / Time monosodium glutamate Allergy Abd Verified 10/10/24 18:08 cramps/diarrhea Penicillins (PCN) Allergy Rash Verified 10/10/24 18:08 allopurinol AdvReac Unknown cough Verified 10/10/24 18:08 morphine AdvReac Other Verified 10/10/24 18:08 tamsulosin (From Flomax) AdvReac Other Verified 10/10/24 18:08 Family History Grandfather CVA (cerebral vascular accident) Grandmother Congestive heart failure Grandmother Cardiac pacemaker in situ Mother Heart disease Hypertension Father Heart disease Cardiac arrhythmia Surgical History History of incision and drainage Hx of cystoscopy History of umbilical hernia repair History of inguinal hernia repair Social History household members: spouse Smoking Status: Never smoker alcohol intake: current details: Rare substance use type: does not use caffeine: Yes Type: coffee Number of servings: 1 ROS ROS Narrative Full review of systems was not possible due to this patient's septic encephalopathy and acute illness. Vital Signs Vital Signs Vital Signs: 10/10/24 18:08 10/10/24 18:13 10/10/24 18:14 Temperature 98.6 F 98.6 F Temperature Source Oral Oral Pulse Rate 95 103 H 103 H Respiratory Rate 18 24 H 22 H Blood Pressure 93/54 L 93/54 L 86/61 L Blood Pressure Mean 67 67 69 Pulse Ox 94 89 99 Oxygen Delivery Method Room Air Room Air Nasal Cannula Oxygen Flow Rate (L/min) 2 10/10/24 18:40 10/10/24 19:14 10/10/24 20:00 Temperature Temperature Source Pulse Rate 99 95 Respiratory Rate 19 H 18 Blood Pressure 94/61 104/66 Blood Pressure Mean 72 78 Pulse Ox 99 99 Oxygen Delivery Method Room Air Nasal Cannula Oxygen Flow Rate (L/min) 10/10/24 21:00 10/10/24 22:00 10/10/24 22:08 Temperature 98.3 F Temperature Source Pulse Rate 98 91 91 Respiratory Rate 19 H 19 H 19 H Blood Pressure 94/56 L 105/61 105/61 Blood Pressure Mean 68 75 75 Pulse Ox 98 99 99 Oxygen Delivery Method Nasal Cannula Nasal Cannula Oxygen Flow Rate (L/min) 2 Weight Weight: 173 lb 1.006 oz Body Mass Index (BMI) 24.8 Physical Exam Const alert and no apparent distress Constitutional Narrative: Patient is confused, lethargic and appears chronically ill. General Appearance: cooperative Orientation / Consciousness: confused and lethargic HEENT normocephalic, head/scalp atraumatic and hearing grossly normal bilaterally HEENT Narrative: Mucous membranes appear dry. Eyes PERRL and EOMs intact bilaterally Neck no lymphadenopathy and supple Resp normal respiratory effort, no retractions, no use of accessory muscles and clear to auscultation bilaterally Cardio regular rate and regular rhythm GI normal to inspection, nondistended, normoactive bowel sounds, soft to palpation, non-tender and non-distended GI Narrative: Obese. Extremity Extremity Narrative: Patient has warm, dry surgical incision on the right lateral aspect of his leg with left inner thigh wound packed and healing with no acute signs of infection. No signs of neurovascular compromise. Skin Skin Narrative: Patient has warm, dry surgical incision on the right lateral aspect of his leg with left inner thigh wound packed and healing with no acute signs of infection. No signs of neurovascular compromise. Neuro CN's II-XII intact bilaterally, moves all extremities and no focal motor deficits Sensorium / Orientation: awake, alert, oriented to person and oriented to place Speech: speech normal Psych affect normal Psych Narrative: Patient is confused and lethargic. Results Medical Records Data Attestation: I reviewed the patient's medical records Lab / Micro Data Attestation: I reviewed the patient's lab results. 10/10/24 18:20 10/10/24 18:20 Labs: Laboratory Results - last 24 hr 10/10/24 18:20: WBC 23.8 H, RBC 4.29 L, Hgb 12.5 L, Hct 39.4 L, MCV 91.8, MCH 29.1, MCHC 31.7 L, RDW Std Deviation 53.5 H, RDW Coeff of Opal 16.0 H, Plt Count 442, MPV 9.2, Immature Gran % (Auto) 0.800, Neut % (Auto) 90.2 H, Lymph % (Auto) 1.9 L, Porter % (Auto) 6.3, Eos % (Auto) 0.5, Baso % (Auto) 0.3, Absolute Neuts (auto) 21.5 H, Absolute Lymphs (auto) 0.44 L, Nucleated RBC % 0, Differential Comment , Platelet Estimate ADEQUATE, Hypochromasia RARE, PT 20.4 H, INR 1.8, APTT 35.0, Sodium 136, Potassium 3.3 L, Chloride 103, Carbon Dioxide 28.0, Anion Gap 5, BUN 18, Creatinine 1.18, Estim Creat Clear Calc 59.29, Est GFR (MDRD) Af Amer 78, Est GFR (MDRD) Non-Af 65, BUN/Creatinine Ratio 15.3, Glucose 116 H, Lactic Acid 1.5, Calcium 10.3 H, Total Bilirubin 0.50, AST 13 L, ALT 20, Alkaline Phosphatase 59, Troponin I High Sens 7, Total Protein 5.9 L, Albumin 2.2 L, Globulin 3.7, Albumin/Globulin Ratio 0.6 L 10/10/24 20:55: Urine Color Yellow, Urine Clarity Cloudy, Urine pH 6.0, Ur Specific Flushing 1.010, Urine Protein 30 H, Urine Glucose (UA) Normal, Urine Ketones Negative, Urine Occult Blood 250 H, Urine Nitrite Negative, Urine Bilirubin Negative, Urine Urobilinogen Normal, Ur Leukocyte Esterase 100 H, Urine RBC 10-25 SEEN, Urine WBC 50-100 SEEN, Ur Squamous Epith Cells 0-5 SEEN, Calcium Oxalate Crystal 2+, Urine Bacteria 2+, Hyaline Casts 10-25 SEEN, Fine Granular Casts 0-5 SEEN, Urine Mucus 3+ Micro: Microbiology 10/10/24 18:45 Mucosa - Nose SARS-CoV-2, Influenza & RSV (PCR) - Final SARS-CoV-2 (COVID 19 PCR) Imaging Radiology Impression Brain CT 10/10/24 18:37 IMPRESSION: Mild atrophy and periventricular white matter ischemic change. No acute bleed. If concern for acute infarct MRI recommended Electronically Signed: Curry Mejia MD at 19:38 EST , Chest X-Ray 10/10/24 19:03 IMPRESSION: Bilateral lower lobe atelectasis or infiltrates. Electronically Signed: Curry Mejia MD at 19:46 EST , Abdomen/Pelvis CT 10/10/24 19:08 IMPRESSION: Findings which may be consistent with nonspecific gastroduodenitis Bilateral nephrolithiasis without evidence for renal obstruction Diffuse fecal retention within the colon and mild rectal impaction of uncertain clinical significance. No evidence for small bowel obstruction or other acute findings Electronically Signed: Curry Mejia MD at 20:43 EST , Femur X-Ray 10/10/24 19:40 IMPRESSION: Normal x-ray examination of the femur. Electronically Signed: Curry Mejia MD at 20:19 EST , Knee X-Ray 10/10/24 19:40 IMPRESSION: No evidence for acute fracture or dislocation. Degenerative changes. . Postsurgical changes of the lateral knee. No definitive evidence for acute osteomyelitis or focal abscess Electronically Signed: Curry Mejia MD at 20:19 EST , Assessment & Plan Assessment/Plan (1) Sepsis: QUALIFIERS: Sepsis acute organ dysfunction status: with acute organ dysfunction Sepsis type: sepsis due to unspecified organism Severe sepsis acute organ dysfunction type: encephalopathy Severe sepsis shock status: without septic shock Qualified Code(s): A41.9 - Sepsis, unspecified organism; R65.20 - Severe sepsis without septic shock; G93.41 - Metabolic encephalopathy (2) Acute UTI: (3) COVID-19: (4) Gastroduodenitis without bleeding: (5) Hypokalemia: (6) Folate deficiency: (7) Fecal retention: QUALIFIERS: Constipation type: unspecified constipation type Qualified Code(s): K59.00 - Constipation, unspecified (8) Hypoxia: (9) Open wound of left thigh: QUALIFIERS: Encounter type: sequela Qualified Code(s): S71.102S - Unspecified open wound, left thigh, sequela (10) Adult failure to thrive: (11) Severe protein-energy malnutrition: (12) Anticoagulant long-term use: PLAN: Plan 1. Sepsis and Septic Encephalopathy with severe leukocytosis of 23.8K present on admission and urinalysis positive for evidence of acute cystitis; with microscopic hematuria - Admit to ICU for treatment under the Sepsis protocol. Continue IV Merrem begun in the ER and await culture and sensitivity data. We will consult Dr. Alicia of infectious diseases to see see this patient on-rounds in the AM for further recommendations with help appreciated in advance. Finally, the ER physician spoke with the ICU team at [facility] and he has been accepted fro transfer once a bed becomes available. 2. COVID-19 PCR assay positive complicating #1 in the setting of known previous COVID-19 - Continue vitamin D3, vitamin C and Zinc already started in this immune suppressed and chronically ill patient. We will avoid Decadron in this chronically immune compromised patient. We will also avoid remdesivir due to a combination of concerns about potential toxicity, increased risk of potential adverse drug interactions and seemingly relatively mild pulmonary disease in addition to uncertain time of onset. 3. CT scan of the abdomen and pelvis this admission positive for evidence of Gastroduodenitis with bilateral nephrolithiasis; without evidence of obstruction and fecal retention compounding #1 & #2 in the setting of known GERD and chronic neuropathic pain; on as needed tramadol and gabapentin - Start Protonix 40 mg IV BID. Consider enema when patient is more stable from a medical standpoint. Minimize opiates as much as possible. Finally, we will consult gastroenterology to see this patient on-rounds in the AM for further recommendations with help appreciated in advance. 4. Acute Respiratory Insufficiency in the setting of a known history of asthma/ILD with antisynthetase syndrome; on CellCept and prednisone on chronic suppressive Bactrim DS and azithromycin, chronic hypoxic respiratory failure on 2 L nasal cannula (intermittent) - Wean supplemental oxygen as tolerated. Hold CellCept until acute infections outlined in #1 & #2 have been neutralized. 5. Hypokalemia of 3.3 mmol/L present on admission - Give supplemental KCl and then recheck level in the AM to ensure repletion. 6. Recent cutaneous abscess of Left thigh with chronically nonhealing wound; s/p I&D on September 08, 2024 with abscess extending to fascia with positive acid-fast stain on ethambutol and rifabutin followed previously by Dr. Alicia of infectious diseases with patient ultimately sent to [facility] under the care of Dr. Soares adding to the medical complexity of #1 - #5 - Noted. 7. Chronic severe protein calorie malnutrition with severe hypoalbuminemia of 2.2 g/dL present on admission in the setting of previously known oropharyngeal dysphagia and adult [id number] with generalized weakness and frequent falls with patient currently residing in [facility] adding to the burden of diseases outlined in #1 - #6 with newly diagnosed Folate deficiency of 3 ng/mL present on admission - Start IV Folate supplementation due to suspected poor nutrition and/or absorption. Continue protein supplements as before. PT/OT and Case Management to consult and treat on-rounds in the AM with help appreciated in advance. 8. Paroxysmal atrial fibrillation; on amiodarone and apixaban - Resume home regimen as previous. 9. Essential hypertension; on metoprolol - Hold scheduled antihypertensives until infections outlined above have been neutralized. 10. Hyperlipidemia - Resume statin. 11. History of BOOP - Noted. 12. History of shingles - Stable with no evidence of acute flare at this time. 13. History of RBBB - Noted. 14. History of Left thyroid nodule (04/2024) with biopsy positive for benign follicular/colloid nodule - Noted. Check TSH. 15. History of umbilical hernia repair - Noted. 16. History of inguinal hernia repair - Noted. 17. History of orthostatic hypotension - Noted. 18. History of NAFLD - Stable. 19. Disorder of zinc metabolism - Resume zinc supplementation as before. 20. History of renal calculi; s/p stent (2020) - Noted. 21. Depression; on duloxetine - Continue Duloxetine as previous. 22. BPH; with listed allergy to Flomax (?) - Stable. 23. Osteoporosis; on Prolia - Restart Prolia as an outpatient. 24. History of gout - Stable with no evidence of acute flare at this time. 25. Osteoarthritis - Give Tylenol prn. 26. Chronically strained relationship with his complicating his previous admission - Noted. 27. DVT prophylaxis - Patient is already on apixaban for #8 which will be continued. Total time: Approximately (but not less than) 75 minutes. Sepsis Attestation Sepsis Alert: Yes Sepsis Attestation: Agree w/Sepsis Date exam was performed: 10/10/24 Time exam was performed: 23:00 Possible Source of Sepsis: Genitourinary Sepsis Organ Dysfunction Criteria Present: New/Unexplained change in mental status Fluid Resuscitation Fluid resuscitation indicated?: Yes Fluid Resuscitation ordered: 30 ml/kg fluid bolus ordered Amount of fluid ordered: 2 Sepsis Note Date exam was performed: 10/11/24 Time exam was performed: 03:00 Sepsis Attestation: Sepsis re-evaluation was performed Response to fluids: Fluid responsive hypotension Charges/Coding Visit Charges Inpatient E&M: 25441 Init Hosp L3
--- NOTE | 2024-10-10 22:40 | ED.RN ---
Report called to [facility], questions/concerns answered
[2024-10-10] MEDS: Meropenem 2 GM in 0.9% Normal Saline (100mL Bag) 100 ML IV (23:08)
[2024-10-10 23:25] LABS: Phosphorus 2.8 mg/dL (2.5-4.9)
[2024-10-11] VITALS (21 sets, daily range): BP systolic 82–106; BP diastolic 45–71; PULSE 80–99; RESP 14–26; TEMP 36.4–36.7; O2SAT 18–100; BMI 23.7
[2024-10-11] MEDS: 0.9% Normal Saline (1000mL) 1,000 ML 999 ML IV (00:57)
[2024-10-11 01:50] LABS: Lactic Acid 1.1 mmol/L (0.4-1.9)
[2024-10-11 02:05] LABS: Vitamin B12 1601 pg/mL (211-911)
[2024-10-11] MEDS: Potassium Chloride Oral Tablet 20 MEQ 40 MEQ PO (02:29)
[2024-10-11] MEDS: Gabapentin 300 MG Capsule PO (05:05)
[2024-10-11] MEDS: Meropenem 1 GM in 0.9% Normal Saline (100mL MB+) 100 ML IV (05:05)
--- NOTE | 2024-10-11 05:20 | RAD_ITS ---
INDICATION: COVID EXAMINATION/TECHNIQUE: X-RAY - XR Chest 1 View COMPARISON: CR Chest Oct 10 2024 6:59pm FINDINGS: LINES/DEVICES: None. LUNGS: Patchy groundglass opacities in the right upper lobe, right lower lobe and left lower lobe suggesting atypical pneumonia. MEDIASTINUM AND CARDIOVASCULAR STRUCTURES: Cardiac silhouette not enlarged. Central airways and mediastinal contour are unremarkable. BONES AND SOFT TISSUES: Unremarkable. RAD/Chest 1 View (Portable) IMPRESSION: Patchy groundglass opacities in the right upper lobe, right lower lobe and left lower lobe suggesting atypical pneumonia. There has been no significant change since the previous study. Electronically Signed: Danie Rossi MD at 7:27 EST ,
[2024-10-11 05:33] LABS: Absolute Lymphocyte Count 0.36 X10^3/uL (0.83-4.51); Basophil# 0.08 X10^3/uL; Basophil% 0.4 % (0-1); Eosinophil# 0.18 X10^3/uL; Eosinophils% 0.9 % (0-5); Hemoglobin 11.2 g/dL (13.0-16.5); Lymphocyte # 0.36 X10^3/ul (0.83-4.51); Lymphocyte % 1.8 % (19-41); Mean Corp Hgb Conc 31.1 g/dL (32-36); Mean Corpuscular Hgb 29.2 pg (27.0-32.0); Mean Corpuscular Volume 93.8 fL (80-94); Mean Platelet Vol. 8.9 fl (6.2-12.0); Monocyte# 1.14 X10^3/uL; Monocyte% 5.7 % (0-10); NRBC Flagged by Analyzer 0 % (0-5); Neutrophil # 17.98 X10^3/uL (2.7-7.7); Neutrophil % 89.9 % (47-70); POSITIVE DIFFERENTIAL YES; Platelet Count 384 K/mm3 (150-450); RBC Distribution Width CV 16.1 % (11.6-14.6); RBC Distribution Width SD 54.8 fl (35.1-43.9); Red Blood Count 3.84 M/mm3 (4.6-6.2)
[2024-10-11 05:50] LABS: ALB/GLOB Ratio 0.5 RATIO (0.9-2.4); AST(SGOT) 17 U/L (15-37); Alanine Aminotransfer ALT/SGPT 20 U/L (16-61); Albumin, Serum 1.9 g/dL (3.2-5.0); Alkaline Phosphatase 52 U/L (45-117); Anion Gap 3 (5-15); BUN 15 mg/dL (7-18); BUN/Creat Ratio 16.3 RATIO (10-20); Calcium,Total 9.5 mg/dL (8.5-10.1); Chloride 109 mmol/L (98-107); Creatinine, Serum 0.92 mg/dL (0.70-1.30); EST Glomerular Filtration Rate 86 mL/min (>60); Est Glom Filt Rate - Afr Amer 104 mL/min (>60); Estimated Creatinine Clearance 76.04 ml/min; Globulin 3.5 g/dL (2.2-4.2); Glucose 99 mg/dL (74-106); Magnesium 1.9 mg/dL (1.6-2.6); Phosphorus 3.1 mg/dL (2.5-4.9); Potassium 3.8 mmol/L (3.5-5.1); Protein, Total 5.4 g/dL (6.4-8.2); Sodium Level 138 mmol/L (136-145)
[2024-10-11 07:05] LABS: Blood Gas Specimen Type VEN; O2 Delivery Device Not entered; SITE Not entered; VBG BASE EXCESS 1 mmol/L (-1.0-3.5); VBG Bicarbonate 26 mmol/L (22-26); VBG PO2 32 mmHg (25-40); VBG SO2 57 % (50-70); VBG TCO2 28 mmol/L (23-33); VBG pCO2 46.7 mmHg (41-51); VBG pH 7.36 (7.32-7.42)
--- NOTE | 2024-10-11 07:26 | PCM.PN.HOSP ---
Reason for Visit Reason for Visit: Diagnoses Sepsis, unspecified organism (10/10/24) Unspecified severe protein-calorie malnutrition (10/10/24) Deficiency of other specified B group vitamins (10/10/24) Hypokalemia (10/10/24) Metabolic encephalopathy (10/10/24) Gastroduodenitis, unspecified, without bleeding (10/10/24) Constipation, unspecified (10/10/24) Urinary tract infection, site not specified (10/10/24) Hypoxemia (10/10/24) Adult failure to thrive (10/10/24) Severe sepsis without septic shock (10/10/24) Unspecified open wound, left thigh, initial encounter (10/10/24) Unspecified open wound, left thigh, sequela (10/10/24) COVID-19 (10/10/24) 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) use of anticoagulants (10/10/24) Objective Data Objective Data Vital Signs: Vital Signs Temp Pulse Resp BP Pulse Ox O2 Del Method O2 Flow Rate 97.9 F 80 18 95/68 95 Nasal Cannula 2 10/11/24 00:23 10/11/24 07:00 10/11/24 07:00 10/11/24 07:00 10/11/24 07:02 10/11/24 07:02 10/11/24 07:02 Oxygen Flow Rate (L/min) 2 Oxygen Delivery Method Nasal Cannula Weight: 75.1 kg Body Mass Index (BMI) 23.7 Intake & Output: Intake and Output for Last 24 Hours 10/09/24 10/10/24 10/11/24 23:59 23:59 23:59 Intake Total 2800 / 2800 377.55 / 377.55 Output Total 200 / 200 Balance 2800 / 2800 177.55 / 177.55 Lab / Micro Data 10/11/24 05:25 10/11/24 05:25 Labs: Laboratory Results - last 24 hr 10/10/24 18:20: WBC 23.8 H, RBC 4.29 L, Hgb 12.5 L, Hct 39.4 L, MCV 91.8, MCH 29.1, MCHC 31.7 L, RDW Std Deviation 53.5 H, RDW Coeff of Opal 16.0 H, Plt Count 442, MPV 9.2, Immature Gran % (Auto) 0.800, Neut % (Auto) 90.2 H, Lymph % (Auto) 1.9 L, [place] % (Auto) 6.3, Eos % (Auto) 0.5, Baso % (Auto) 0.3, Absolute Neuts (auto) 21.5 H, Absolute Lymphs (auto) 0.44 L, Nucleated RBC % 0, Differential Comment , Platelet Estimate ADEQUATE, Hypochromasia RARE, PT 20.4 H, INR 1.8, APTT 35.0, Sodium 136, Potassium 3.3 L, Chloride 103, Carbon Dioxide 28.0, Anion Gap 5, BUN 18, Creatinine 1.18, Estim Creat Clear Calc 59.29, Est GFR (MDRD) Af Amer 78, Est GFR (MDRD) Non-Af 65, BUN/Creatinine Ratio 15.3, Glucose 116 H, Hemoglobin A1c 5.0, Lactic Acid 1.5, Calcium 10.3 H, Phosphorus 2.8, Magnesium 2.0, Total Bilirubin 0.50, AST 13 L, ALT 20, Alkaline Phosphatase 59, Troponin I High Sens 7, Total Protein 5.9 L, Albumin 2.2 L, Globulin 3.7, Albumin/Globulin Ratio 0.6 L, Folate 3.00 L, TSH 2.120 10/10/24 20:55: Urine Color Yellow, Urine Clarity Cloudy, Urine pH 6.0, Ur Specific [place] 1.010, Urine Protein 30 H, Urine Glucose (UA) Normal, Urine Ketones Negative, Urine Occult Blood 250 H, Urine Nitrite Negative, Urine Bilirubin Negative, Urine Urobilinogen Normal, Ur Leukocyte Esterase 100 H, Urine RBC 10-25 SEEN, Urine WBC 50-100 SEEN, Ur Squamous Epith Cells 0-5 SEEN, Calcium Oxalate Crystal 2+, Urine Bacteria 2+, Hyaline Casts 10-25 SEEN, Fine Granular Casts 0-5 SEEN, Urine Mucus 3+ 10/11/24 01:05: Lactic Acid 1.1, Vitamin B12 1601 H 10/11/24 05:25: WBC 20.0 H, RBC 3.84 L, Hgb 11.2 L, Hct 36.0 L, MCV 93.8, MCH 29.2, MCHC 31.1 L, RDW Std Deviation 54.8 H, RDW Coeff of Opal 16.1 H, Plt Count 384, MPV 8.9, Immature Gran % (Auto) 1.300 H, Neut % (Auto) 89.9 H, Lymph % (Auto) 1.8 L, [place] % (Auto) 5.7, Eos % (Auto) 0.9, Baso % (Auto) 0.4, Absolute Neuts (auto) 18.0 H, Absolute Lymphs (auto) 0.36 L, Nucleated RBC % 0, Sodium 138, Potassium 3.8, Chloride 109 H, Carbon Dioxide 26.0, Anion Gap 3 L, BUN 15, Creatinine 0.92, Estim Creat Clear Calc 76.04, Est GFR (MDRD) Af Amer 104, Est GFR (MDRD) Non-Af 86, BUN/Creatinine Ratio 16.3, Glucose 99, Calcium 9.5, Phosphorus 3.1, Magnesium 1.9, Total Bilirubin 0.50, AST 17, ALT 20, Alkaline Phosphatase 52, Total Protein 5.4 L, Albumin 1.9 L, Globulin 3.5, Albumin/Globulin Ratio 0.5 L Micro: Microbiology 10/10/24 20:55 Urine Catheter - Catheter Legionella Antigen - Final 10/10/24 20:55 Urine Catheter - Catheter Streptococcus pneumoniae Antigen (M - Final 10/10/24 18:45 Mucosa - Nose SARS-CoV-2, Influenza & RSV (PCR) - Final SARS-CoV-2 (COVID 19 PCR) ABG Data ABG results: ABG 10/11/24 07:02 Specimen Type ANNETTE Sample Site Not entered O2 % 2.0 VBG pH 7.36 VBG pO2 32 VBG HCO3 26 VBG Total CO2 28 VBG O2 Sat (Calc) 57 VBG Base Excess 1 POC Mix VBG pCO2 Pt Tmp 46.7 O2 Delivery Device Not entered Radiography Diagnostic Testing: Radiology Impression Brain CT 10/10/24 18:37 IMPRESSION: Mild atrophy and periventricular white matter ischemic change. No acute bleed. If concern for acute infarct MRI recommended Electronically Signed: Curry Mejia MD at 19:38 EST Reading Location ID and State: [facility] / [place] Tel , Service support , Chest X-Ray 10/10/24 19:03 IMPRESSION: Bilateral lower lobe atelectasis or infiltrates. Electronically Signed: Curry Mejia MD at 19:46 EST Reading Location ID and State: [facility] / [place] Tel [phone], Service support , Abdomen/Pelvis CT 10/10/24 19:08 IMPRESSION: Findings which may be consistent with nonspecific gastroduodenitis Bilateral nephrolithiasis without evidence for renal obstruction Diffuse fecal retention within the colon and mild rectal impaction of uncertain clinical significance. No evidence for small bowel obstruction or other acute findings Electronically Signed: Curry Mejia MD at 20:43 EST Reading Location ID and State: [address] [place] [address] Tel [phone], Service support , Femur X-Ray 10/10/24 19:40 IMPRESSION: Normal x-ray examination of the femur. Electronically Signed: Curry Mejia MD at 20:19 EST Reading Location ID and State: [address] [place] [address] Tel [phone], Service support , Knee X-Ray 10/10/24 19:40 IMPRESSION: No evidence for acute fracture or dislocation. Degenerative changes. . Postsurgical changes of the lateral knee. No definitive evidence for acute osteomyelitis or focal abscess Electronically Signed: Curry Mejia MD at 20:19 EST Reading Location ID and State: [address] [place] [address] Tel [phone], Service support , Assessment & Plan Assessment/Plan (1) Sepsis: QUALIFIERS: Sepsis type: sepsis due to unspecified organism Sepsis acute organ dysfunction status: with acute organ dysfunction Severe sepsis acute organ dysfunction type: encephalopathy Severe sepsis shock status: without septic shock Qualified Code(s): A41.9 - Sepsis, unspecified organism; R65.20 - Severe sepsis without septic shock; G93.41 - Metabolic encephalopathy PLAN: Plan 73-year-old male presented with altered mental status and low blood pressure # Sepsis -Patient presented with white blood cell count of 23.8 with a left shift, INR of 1.8 despite not being on Coumadin and systolic blood pressures down to the 80s and patient did reach a MAP of 64, also tachypneic with respiratory rate up to 24?26 -Status post IV fluids -Chest x-ray with bilateral lower lobe atelectasis or infiltrates -UA with leuk esterase and white blood cells as well as 2+ bacteria but also with calcium oxalate crystals, hyaline and fine granular casts and mucus -Source of sepsis could be UTI versus pneumonia -Urine antigens negative -Patient does have blood and urine cultures pending -Continue meropenem, patient also on azithromycin chronically and this was continued -Infectious disease and pulm crit on board -Awaiting transfer to ICU in [facility] # Acute metabolic encephalopathy -Secondary to sepsis as above -CT with no acute changes # Gastroduodenitis and fecal retention -CT abdomen/pelvis with findings consistent of nonspecific gastroduodenitis -Continue PPI -GI consulted on admission -Will add rectal suppository given patient's fecal retention # COVID-19 positive -COVID precautions -[] -Infectious disease on board # History of asthma/ILD with antisynthetase syndrome -Patient uses 2 L nasal cannula as needed, was 89% shortly after arrival and was placed on 2 L nasal cannula -On chronic prednisone therapy with 10 mg daily, given COVID patient switched to dexamethasone -Patient remains on azithromycin and Bactrim which she takes chronically for this -Patient's mycophenolate on hold due to his left thigh abscess and has been I&D and -Continue Pulmicort -Add albuterol as needed -Pulmonology is consulted # Left thigh abscess with acid-fast bacilli -Status post I&D 09/08/2024 with abscess extending to fascia -X-ray on this presentation normal -Patient's mycophenolate on hold -Infectious disease consulted -Patient on ethambutol and rifabutin -Wound care consult # Paroxysmal atrial fibrillation -Patient remains on amiodarone and apixaban #Hypertension -Patient with soft blood pressure noted ICU, hold metoprolol #GERD -Continue PPI #Depression/anxiety -Continue home medications #DVT ppx: On Lilyquanmol Jack MD Time spent in the patient's overall evaluation, decision-making process, review of diagnostic data, adjustment of management, discussion with other providers, nursing and ancillary staff involved in patient's care documentation, 51 Minutes Charges/Coding Visit Charges Inpatient E&M: [id number] [facility] Hosp L3
--- NOTE | 2024-10-11 07:35 | EX.PCM.CON.G ---
HPI Consult Data Date of Consult: 10/11/24 HPI Narrative HPI Narrative: YARON VERDUGO, is a 73 M with a past medical history of essential hypertension; on metoprolol, hyperlipidemia, paroxysmal atrial fibrillation; on amiodarone and apixaban, history of BOOP, history of asthma/ILD with antisynthetase syndrome; on CellCept and prednisone on chronic suppressive Bactrim DS and azithromycin, chronic hypoxic respiratory failure on 2 L nasal (intermittent), recent cutaneous abscess of Left thigh with chronically nonhealing wound; s/p I&D on September 08, 2024 with abscess extending to fascia with positive acid-fast stain on ethambutol and rifabutin followed previously by Dr. Alicia of infectious diseases with patient ultimately sent to [facility] under the care of Dr. Soares. He also has a history of shingles, history of COVID-19, history of RBBB, history of Left thyroid nodule (04/2024) with biopsy positive for benign follicular/colloid nodule, history of umbilical hernia repair, history of inguinal hernia repair, history of orthostatic hypotension, history of NAFLD, disorder of zinc metabolism, history of renal calculi; s/p stent (2020), chronic neuropathic pain; on as needed tramadol and gabapentin, depression; on duloxetine, BPH, GERD chronic severe protein calorie malnutrition with oropharyngeal dysphagia and adult [id number] with generalized weakness and frequent falls, osteoporosis; on Prolia, history of gout, osteoarthritis and chronically strained relationship with his complicating his previous admission who re-presents to [facility] ER after staff at his [facility] noted altered mental status and low blood pressure. Mr. Verdugo is not a fully reliable historian at this time so information From chart, medical staff and computer. According to the records the family informed the ER physician that the ECF staff contacted them and noted he was not acting like himself with significant confusion and unspecified hypotension culminating in patient being recommended to transfer to the ER for further evaluation and treatment. The family also stated they felt the patient was dehydrated and they were unsure if the abscesses in his thigh were returning or he had some other source of infection. In the ER he was noted to have severe leukocytosis of 23.8K present on admission along with a urinalysis positive for evidence of acute cystitis; with microscopic hematuria concerning for sepsis complicated by clinical evidence of septic encephalopathy along with a CT scan of the abdomen and pelvis consistent with nonspecific gastroduodenitis in addition to bilateral nephrolithiasis without evidence for renal obstruction and diffuse fecal retention within the colon and mild rectal impaction of uncertain clinical significance plus laboratory evidence of hypokalemia of 3.3 mmol/L present on admission. I was called due to the gastroduodenitis and fecal retention. [facility] Medical History Allergic rhinitis Major depressive disorder BPH (benign prostatic hyperplasia) Low back pain Disorder of zinc metabolism GERD (gastroesophageal reflux disease) Osteoporosis Adult failure to thrive Right bundle branch block Hypertension Atrial fibrillation Dysphagia, oropharyngeal Abscess of right lower extremity Personal history of immunosupression therapy Orthostatic hypotension PAF (paroxysmal atrial fibrillation) Steroid dependence Neuropathic pain Antisynthetase syndrome History of shingles Ambulatory dysfunction Shingles Abscess of left thigh BOOP (bronchiolitis obliterans with organizing pneumonia) Wears glasses High cholesterol Easy bruising Back pain Injury of head and neck Blackout Gastric reflux Non-smoker On home oxygen therapy Hoarseness Chronic cough History of echocardiogram Hypertension History of stress test Cardiology follow-up encounter History of atrial fibrillation Atrial fibrillation COVID-19 Osteoporosis Kidney stones Atrial fibrillation RBBB (right bundle branch block) Antisynthetase syndrome Essential hypertension Mixed hyperlipidemia Asthma Interstitial lung disease GERD (gastroesophageal reflux disease) Fatty liver BPH (benign prostatic hyperplasia) Lung nodule Vasovagal syncope Abnormal cardiac CT angiography Home Medications ?Medication ?Instructions ?Recorded ?Last Taken ?Type cyanocobalamin (vitamin B-12) 500 500 mcg PO DAILY vitamin 07/14/21 Unknown History mcg tablet denosumab 60 mg/mL subcutaneous 60 mg subcut [id number] low calcuim 07/14/21 Unknown History syringe (Prolia) pantoprazole 40 mg tablet,delayed 40 mg PO DAILY reflux 07/14/21 08/30/24 History release budesonide 0.5 mg/2 mL suspension 0.5 mg inhalation BID sob 01/01/22 08/30/24 History for nebulization (Pulmicort) cetirizine 10 mg tablet (Zyrtec) 10 mg PO DAILY PRN allergies 01/01/22 08/30/24 History cholecalciferol (vitamin D3) 75 150 mcg PO DAILY vitamin 01/01/22 08/30/24 History mcg (3,000 unit) tablet lactobacillus combination no.9 4 4,000 mmu cells PO DAILY supplement 01/01/22 08/30/24 History billion cell capsule (Adult 50 Plus Probiotic) montelukast 10 mg tablet 10 mg PO DAILY allergies 05/12/23 08/30/24 History (Singulair) mycophenolate mofetil 500 mg tablet 3,000 mg PO BID AUTOIMMUNE DISEASE 05/12/23 Unknown History sulfamethoxazole 800 1 tab PO .MWF ATB #1 TAB 08/30/24 Unknown Rx mg-trimethoprim 160 mg tablet (Bactrim DS) L.acidophil,salivari-Bifido 1 cap PO DAILYCM #1 cap 09/22/24 Unknown Rx bifidum-Strep thermoph 175 mg capsule acetaminophen 325 mg tablet 650 mg (2 x 325 mg) PO Q6H PRN PRN 09/22/24 Unknown Rx Pain Score 1-10 #1 TAB amiodarone 200 mg tablet 200 mg PO DAILY #1 TAB 09/22/24 Unknown Rx apixaban 5 mg tablet (Eliquis) 5 mg PO BID #1 TAB 09/22/24 Unknown Rx azithromycin 250 mg tablet 500 mg (2 x 250 mg) PO QHS #1 TAB 09/22/24 Unknown Rx duloxetine 20 mg capsule,delayed 20 mg PO DAILY #1 cap 09/22/24 Unknown Rx release food supplemt, lactose-reduced 120 ml PO TIDCM #1 mL 09/22/24 Unknown Rx 0.08 gram-1.5 kcal/mL oral liquid (Ensure Plus High Protein) gabapentin 300 mg capsule 300 mg PO TID #1 cap 09/22/24 Unknown Rx metoprolol succinate 25 mg 25 mg PO DAILY #1 TAB 09/22/24 Unknown Rx tablet,extended release 24 hr ondansetron 4 mg disintegrating 4 mg PO Q8H PRN PRN 09/22/24 Unknown Rx tablet Nausea/Vomiting #1 TAB prednisone 10 mg tablet 10 mg PO DAILYCM #1 TAB 09/22/24 Unknown Rx tramadol 50 mg tablet 50 mg PO Q6H PRN PRN Pain 4-10 #1 09/22/24 Unknown Rx TAB zinc sulfate 50 mg zinc (220 mg) 50 mg PO DAILY #1 cap 09/22/24 Unknown Rx capsule ascorbic acid (vitamin C) 500 mg 500 mg PO QHS 10/10/24 Unknown History capsule ethambutol 400 mg tablet 400 mg PO DAILY 10/10/24 Unknown History loratadine 10 mg tablet 10 mg PO QHS 10/10/24 Unknown History rifabutin 150 mg capsule 150 mg PO DAILY 10/10/24 Unknown History Allergy/AdvReac Type Severity Reaction Status Date / Time monosodium glutamate Allergy Abd Verified 10/10/24 18:08 cramps/diarrhea Penicillins (PCN) Allergy Rash Verified 10/10/24 18:08 allopurinol AdvReac Unknown cough Verified 10/10/24 18:08 morphine AdvReac Other Verified 10/10/24 18:08 tamsulosin (From Flomax) AdvReac Other Verified 10/10/24 18:08 Family History Grandfather CVA (cerebral vascular accident) Grandmother Congestive heart failure Grandmother Cardiac pacemaker in situ Mother Heart disease Hypertension Father Heart disease Cardiac arrhythmia Surgical History History of incision and drainage Hx of cystoscopy History of umbilical hernia repair History of inguinal hernia repair Social History household members: spouse Smoking Status: Never smoker alcohol intake: current details: Rare substance use type: does not use caffeine: Yes Type: coffee Number of servings: 1 ROS ROS Narrative 10 systems were reviewed with pertinent positives as noted in the HPI above. Physical Exam Narrative General: Alert, no acute distress HEENT: Atraumatic, normocephalic Eyes: extraocular movements grossly intact Neck: Supple Respiratory: Somewhat diminished at the bases Cardiovascular: no edema appreciated GI: nondistended Extremities: Moving all extremities Neuro: No overt focal neurological deficits Psych: Cooperative Lab / Micro Data 10/11/24 05:25 10/11/24 05:25 Micro: Microbiology 10/10/24 20:55 Urine, Clean Catch Urine Culture - Preliminary Culture exhibits no growth. Assessment & Plan Assessment/Plan (1) Sepsis: QUALIFIERS: Sepsis type: sepsis due to unspecified organism Sepsis acute organ dysfunction status: with acute organ dysfunction Severe sepsis acute organ dysfunction type: encephalopathy Severe sepsis shock status: without septic shock Qualified Code(s): A41.9 - Sepsis, unspecified organism; R65.20 - Severe sepsis without septic shock; G93.41 - Metabolic encephalopathy (2) Acute UTI: (3) COVID-19: (4) Gastroduodenitis without bleeding: (5) Hypokalemia: (6) Folate deficiency: (7) Fecal retention: QUALIFIERS: Constipation type: unspecified constipation type Qualified Code(s): K59.00 - Constipation, unspecified (8) Hypoxia: (9) Open wound of left thigh: QUALIFIERS: Encounter type: sequela Qualified Code(s): S71.102S - Unspecified open wound, left thigh, sequela (10) Adult failure to thrive: (11) Severe protein-energy malnutrition: (12) Anticoagulant long-term use: PLAN: Plan 73-year-old gentleman with multiple comorbidities sepsis and Septic Encephalopathy with severe leukocytosis of 23.8K present on admission and urinalysis positive for evidence of acute cystitis; with microscopic hematuria -he is going IV Merrem begun in the ER and await culture and sensitivity data. the ER physician spoke with the ICU team at [facility] and he has been accepted fro transfer once a bed becomes available. CT scan of the abdomen and pelvis this admission positive for evidence of Gastroduodenitis with bilateral nephrolithiasis; without evidence of obstruction and fecal retention compounding #1 & #2 in the setting of known GERD and chronic neuropathic pain; on as needed tramadol and gabapentin - Start Protonix 40 mg IV BID. Consider enema when patient is more stable from a medical standpoint. Minimize opiates as much as possible.
--- NOTE | 2024-10-11 08:47 | CON.PCM.CC_ITS ---
Assessment & Plan Assessment/Plan (1) Sepsis: QUALIFIERS: Sepsis type: sepsis due to unspecified organism S epsis acute organ dysfunction status: with acute organ dysfunction Severe sepsis acute organ dysfunction type: encephalopathy Severe sepsis shock status: without septic shock Qualified Code(s): A41.9 - Sepsis, unspecified organism; R65.20 - Severe sepsis without septic shock; G93.41 - Metabolic encephalopathy (2) COVID-19: PLAN: Plan RECOMMENDATIONS: 1. Continue antimicrobials, pending evaluation by infectious diseases. 2. Continue Decadron to complete 10 days of therapy. 3. Continue PPI therapy. 4. Dietary advancement as tolerated. 5. Transfer to [facility], once bed is available. IMPRESSIONS: 1. Sepsis The patient presented to the hospital with sepsis due to possible UTI +/- soft tissue infection of the lower extremity with acute sepsis related organ dysfunction as evidenced by hypotension with systolic blood pressure less than 90 mmHg. The patient did receive supplemental IV fluid hydration and has been initiated on antimicrobial therapy. Wound care consultation is pending. Will plan to continue antibiotics, pending evaluation by infectious diseases. The patient is otherwise hemodynamically stable at the present time, without need for vasopressor support. The patient currently has a transfer pending to [facility] once a bed becomes available. 2. COVID-19 pneumonia The patient is currently doing well from a respiratory perspective on room air. Continue Decadron as ordered. 3. Encephalopathy Most likely metabolic in etiology in the setting #1. CT head was unrevealing. Overall, the patient's mental status appears to be improving. Continue supportive measures as noted above. 4. Recent left thigh abscess with nonhealing wounds/malnutrition/paroxysmal atrial fibrillation/history of ILD Complicates care, management, recovery and prognosis. Continue home medications as indicated. Continue local wound care, pending transfer to [facility]. This note was generated with [employer] dictation software. It may contain incorrect words, spelling, and punctuation that were not noted in checking the note before signing. HPI Consult Data Date of Consult: 10/11/24 HPI Narrative Reason for Consultation: Sepsis HPI Narrative: The patient is a 73-year-old male, with a history as outlined below, who presented to the emergency department on October 10 with altered mental status and hypotension. 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 On presentation to the emergency department, the patient was documented to be afebrile with a blood pressure of 93/54 mmHg. Laboratory evaluation revealed an elevated white blood cell count to 24,000. Chemistry profile was notable for a potassium of 3.3 with normal creatinine. Lactate was within normal limits. Glucose was normal at 116. Urine analysis was positive for leukocyte esterase and 2+ urine bacteria. Head CT revealed mild atrophy and periventricular white matter ischemic changes. Chest x-ray demonstrated bilateral lower lobe atelectasis. CT abdomen/pelvis demonstrated findings concerning for questionable gastroduodenitis. COVID PCR was positive. In light of the patient's complex medical history, the decision was made to transfer the patient to [facility], where he recently received medical care. Although the patient was accepted in transfer, there is no bed available at the current time. Therefore, the patient was admitted to the medical intensive care unit and placed on empiric antibiotics along with Decadron, pending bed availability at [facility]. [facility] Medical History Allergic rhinitis Major depressive disorder BPH (benign prostatic hyperplasia) Low back pain Disorder of zinc metabolism GERD (gastroesophageal reflux disease) Osteoporosis Adult failure to thrive Right bundle branch block Hypertension Atrial fibrillation Dysphagia, oropharyngeal Abscess of right lower extremity Personal history of immunosupression therapy Orthostatic hypotension PAF (paroxysmal atrial fibrillation) Steroid dependence Neuropathic pain Antisynthetase syndrome History of shingles Ambulatory dysfunction Shingles Abscess of left thigh BOOP (bronchiolitis obliterans with organizing pneumonia) Wears glasses High cholesterol Easy bruising Back pain Injury of head and neck Blackout Gastric reflux Non-smoker On home oxygen therapy Hoarseness Chronic cough History of echocardiogram Hypertension History of stress test Cardiology follow-up encounter History of atrial fibrillation Atrial fibrillation COVID-19 Osteoporosis Kidney stones Atrial fibrillation RBBB (right bundle branch block) Antisynthetase syndrome Essential hypertension Mixed hyperlipidemia Asthma Interstitial lung disease GERD (gastroesophageal reflux disease) Fatty liver BPH (benign prostatic hyperplasia) Lung nodule Vasovagal syncope Abnormal cardiac CT angiography Home Medications ?Medication ?Instructions ?Recorded ?Last Taken ?Type cyanocobalamin (vitamin B-12) 500 500 mcg PO DAILY vitamin 07/14/21 Unknown History mcg tablet denosumab 60 mg/mL subcutaneous 60 mg subcut [id number] low calcuim 07/14/21 Unknown History syringe (Prolia) pantoprazole 40 mg tablet,delayed 40 mg PO DAILY reflux 07/14/21 08/30/24 History release budesonide 0.5 mg/2 mL suspension 0.5 mg inhalation BID sob 01/01/22 08/30/24 History for nebulization (Pulmicort) cetirizine 10 mg tablet (Zyrtec) 10 mg PO DAILY PRN allergies 01/01/22 08/30/24 History cholecalciferol (vitamin D3) 75 150 mcg PO DAILY vitamin 01/01/22 08/30/24 History mcg (3,000 unit) tablet lactobacillus combination no.9 4 4,000 mmu cells PO DAILY supplement 01/01/22 08/30/24 History billion cell capsule (Adult 50 Plus Probiotic) montelukast 10 mg tablet 10 mg PO DAILY allergies 05/12/23 08/30/24 History (Singulair) mycophenolate mofetil 500 mg tablet 3,000 mg PO BID AUTOIMMUNE DISEASE 05/12/23 Unknown History sulfamethoxazole 800 1 tab PO .MWF ATB #1 TAB 08/30/24 Unknown Rx mg-trimethoprim 160 mg tablet (Bactrim DS) L.acidophil,salivari-Bifido 1 cap PO DAILYCM #1 cap 09/22/24 Unknown Rx bifidum-Strep thermoph 175 mg capsule acetaminophen 325 mg tablet 650 mg (2 x 325 mg) PO Q6H PRN PRN 09/22/24 Unknown Rx Pain Score 1-10 #1 TAB amiodarone 200 mg tablet 200 mg PO DAILY #1 TAB 09/22/24 Unknown Rx apixaban 5 mg tablet (Eliquis) 5 mg PO BID #1 TAB 09/22/24 Unknown Rx azithromycin 250 mg tablet 500 mg (2 x 250 mg) PO QHS #1 TAB 09/22/24 Unknown Rx duloxetine 20 mg capsule,delayed 20 mg PO DAILY #1 cap 09/22/24 Unknown Rx release food supplemt, lactose-reduced 120 ml PO TIDCM #1 mL 09/22/24 Unknown Rx 0.08 gram-1.5 kcal/mL oral liquid (Ensure Plus High Protein) gabapentin 300 mg capsule 300 mg PO TID #1 cap 11/01/24 Unknown Rx metoprolol succinate 25 mg 25 mg PO DAILY #1 TAB 09/22/24 Unknown Rx tablet,extended release 24 hr ondansetron 4 mg disintegrating 4 mg PO Q8H PRN PRN 09/22/24 Unknown Rx tablet Nausea/Vomiting #1 TAB prednisone 10 mg tablet 10 mg PO DAILYCM #1 TAB 09/22/24 Unknown Rx tramadol 50 mg tablet 50 mg PO Q6H PRN PRN Pain 4-10 #1 09/22/24 Unknown Rx TAB zinc sulfate 50 mg zinc (220 mg) 50 mg PO DAILY #1 cap 09/22/24 Unknown Rx capsule ascorbic acid (vitamin C) 500 mg 500 mg PO QHS 10/10/24 Unknown History capsule ethambutol 400 mg tablet 400 mg PO DAILY 10/10/24 Unknown History loratadine 10 mg tablet 10 mg PO QHS 10/10/24 Unknown History rifabutin 150 mg capsule 150 mg PO DAILY 10/10/24 Unknown History Allergy/AdvReac Type Severity Reaction Status Date / Time monosodium glutamate Allergy Abd Verified 10/10/24 18:08 cramps/diarrhea Penicillins (PCN) Allergy Rash Verified 10/10/24 18:08 allopurinol AdvReac Unknown cough Verified 10/10/24 18:08 morphine AdvReac Other Verified 10/10/24 18:08 tamsulosin (From Flomax) AdvReac Other Verified 10/10/24 18:08 Family History Grandfather CVA (cerebral vascular accident) Grandmother Congestive heart failure Grandmother Cardiac pacemaker in situ Mother Heart disease Hypertension Father Heart disease Cardiac arrhythmia Surgical History History of incision and drainage Hx of cystoscopy History of umbilical hernia repair History of inguinal hernia repair Social History household members: spouse Smoking Status: Never smoker alcohol intake: current details: Rare substance use type: does not use caffeine: Yes Type: coffee Number of servings: 1 ROS ROS Narrative 10 systems were reviewed with pertinent positives as noted in the HPI above. Physical Exam Const alert and no apparent distress General Appearance: cooperative and ill appearing Positive for chronically HEENT normocephalic and head/scalp atraumatic Eyes PERRL, EOMs intact bilaterally and conjunctivae normal Neck supple General: trachea midline Chest inspection of chest normal Resp normal respiratory effort Auscultation: Negative for rales, rhonchi or wheezes Cardio regular rate and regular rhythm GI normal to inspection, nondistended, normoactive bowel sounds Extremity Extremity Narrative: Extremity wound present on admission. Neuro CN's II-XII intact bilaterally and no focal motor deficits Psych Mood & Affect: flat affect Lab / Micro Data 10/11/24 05:25 10/11/24 05:25 Labs: Laboratory Results - last 24 hr 10/10/24 18:20: WBC 23.8 H, RBC 4.29 L, Hgb 12.5 L, Hct 39.4 L, MCV 91.8, MCH 29.1, MCHC 31.7 L, RDW Std Deviation 53.5 H, RDW Coeff of Opal 16.0 H, Plt Count 442, MPV 9.2, Immature Gran % (Auto) 0.800, Neut % (Auto) 90.2 H, Lymph % (Auto) 1.9 L, Young % (Auto) 6.3, Eos % (Auto) 0.5, Baso % (Auto) 0.3, Absolute Neuts (auto) 21.5 H, Absolute Lymphs (auto) 0.44 L, Nucleated RBC % 0, Differential Comment , Platelet Estimate ADEQUATE, Hypochromasia RARE, PT 20.4 H, INR 1.8, APTT 35.0, Sodium 136, Potassium 3.3 L, Chloride 103, Carbon Dioxide 28.0, Anion Gap 5, BUN 18, Creatinine 1.18, Estim Creat Clear Calc 59.29, Est GFR (MDRD) Af Amer 78, Est GFR (MDRD) Non-Af 65, BUN/Creatinine Ratio 15.3, Glucose 116 H, Hemoglobin A1c 5.0, Lactic Acid 1.5, Calcium 10.3 H, Phosphorus 2.8, Magnesium 2.0, Total Bilirubin 0.50, AST 13 L, ALT 20, Alkaline Phosphatase 59, Troponin I High Sens 7, Total Protein 5.9 L, Albumin 2.2 L, Globulin 3.7, Albumin/Globulin Ratio 0.6 L, Folate 3.00 L, TSH 2.120 10/10/24 20:55: Urine Color Yellow, Urine Clarity Cloudy, Urine pH 6.0, Ur Specific Parnell 1.010, Urine Protein 30 H, Urine Glucose (UA) Normal, Urine Ketones Negative, Urine Occult Blood 250 H, Urine Nitrite Negative, Urine Bilirubin Negative, Urine Urobilinogen Normal, Ur Leukocyte Esterase 100 H, Urine RBC 10-25 SEEN, Urine WBC 50-100 SEEN, Ur Squamous Epith Cells 0-5 SEEN, Calcium Oxalate Crystal 2+, Urine Bacteria 2+, Hyaline Casts 10-25 SEEN, Fine Granular Casts 0-5 SEEN, Urine Mucus 3+ 10/11/24 01:05: Lactic Acid 1.1, Vitamin B12 1601 H 10/11/24 05:25: WBC 20.0 H, RBC 3.84 L, Hgb 11.2 L, Hct 36.0 L, MCV 93.8, MCH 29.2, MCHC 31.1 L, RDW Std Deviation 54.8 H, RDW Coeff of Opal 16.1 H, Plt Count 384, MPV 8.9, Immature Gran % (Auto) 1.300 H, Neut % (Auto) 89.9 H, Lymph % (Auto) 1.8 L, Young % (Auto) 5.7, Eos % (Auto) 0.9, Baso % (Auto) 0.4, Absolute Neuts (auto) 18.0 H, Absolute Lymphs (auto) 0.36 L, Nucleated RBC % 0, Sodium 138, Potassium 3.8, Chloride 109 H, Carbon Dioxide 26.0, Anion Gap 3 L, BUN 15, Creatinine 0.92, Estim Creat Clear Calc 76.04, Est GFR (MDRD) Af Amer 104, Est GFR (MDRD) Non-Af 86, BUN/Creatinine Ratio 16.3, Glucose 99, Calcium 9.5, Phosphorus 3.1, Magnesium 1.9, Total Bilirubin 0.50, AST 17, ALT 20, Alkaline Phosphatase 52, Total Protein 5.4 L, Albumin 1.9 L, Globulin 3.5, A lbumin/Globulin Ratio 0.5 L Micro: Microbiology 10/10/24 20:55 Urine Catheter - Catheter Legionella Antigen - Final 10/10/24 20:55 Urine Catheter - Catheter Streptococcus pneumoniae Antigen (M - Final 10/10/24 18:45 Mucosa - Nose SARS-CoV-2, Influenza & RSV (PCR) - Final SARS-CoV-2 (COVID 19 PCR) ABG Data ABG results: ABG 10/11/24 07:02 Specimen Type ANNETTE Sample Site Not entered O2 % 2.0 VBG pH 7.36 VBG pO2 32 VBG HCO3 26 VBG Total CO2 28 VBG O2 Sat (Calc) 57 VBG Base Excess 1 POC Mix VBG pCO2 Pt Tmp 46.7 O2 Delivery Device Not entered Imaging Radiology Impression Brain CT 10/10/24 18:37 IMPRESSION: Mild atrophy and periventricular white matter ischemic change. No acute bleed. If concern for acute infarct MRI recommended Electronically Signed: Curry Mejia MD at 19:38 EST , Chest X-Ray 10/10/24 19:03 IMPRESSION: Bilateral lower lobe atelectasis or infiltrates. Electronically Signed: Curry Mejia MD at 19:46 EST Reading Location ID and State: [facility] / [place] Tel [phone], Service support , Abdomen/Pelvis CT 10/10/24 19:08 IMPRESSION: Findings which may be consistent with nonspecific gastroduodenitis Bilateral nephrolithiasis without evidence for renal obstruction Diffuse fecal retention within the colon and mild rectal impaction of uncertain clinical significance. No evidence for small bowel obstruction or other acute findings Electronically Signed: Curry Mejia MD at 20:43 EST Reading Location ID and State: [facility] / [place] Tel [phone], Service support , Femur X-Ray 10/10/24 19:40 IMPRESSION: Normal x-ray examination of the femur. Electronically Signed: Curry Mejia MD at 20:19 EST , Knee X-Ray 10/10/24 19:40 IMPRESSION: No evidence for acute fracture or dislocation. Degenerative changes. . Postsurgical changes of the lateral knee. No definitive evidence for acute osteomyelitis or focal abscess Electronically Signed: Curry Mejia MD at 20:19 EST , Chest X-Ray 10/11/24 05:20 IMPRESSION: Patchy groundglass opacities in the right upper lobe, right lower lobe and left lower lobe suggesting atypical pneumonia. There has been no significant change since the previous study. Electronically Signed: Danie Rossi MD at 7:27 EST , Charges/Coding Visit Charges Inpatient E&M: 18693 Init Hosp L3
[2024-10-11] MEDS: Bisacodyl 10 MG Suppository RC (08:54)
[2024-10-11] MEDS: Cyanocobalamin 500 MCG Tablet PO (09:01)
[2024-10-11] MEDS: Smz/Tmp Ds Tablet 1 TABLET PO (09:01)
[2024-10-11] MEDS: APIXABAN 5 MG TABLET PO (09:01)
[2024-10-11] MEDS: Pantoprazole Sodium 40 MG in 0.9% Normal Saline (100mL MB+) 100 ML 330 MG IV (09:01)
[2024-10-11] MEDS: Cholecalciferol (VIT D3) 25 MCG TABLET (1,000 UNITS) PO (09:01)
[2024-10-11] MEDS: Folic Acid 1 MG in 0.9% Normal Saline (50mL Bag) 50 ML 200 MG IV (09:02)
[2024-10-11] MEDS: dexAMETHasone 4 MG/ML Vial 6 MG IV (09:03)
[2024-10-11] MEDS: Zinc Sulfate 50 mg zinc (220 mg) ORAL capsule PO (09:03)
[2024-10-11] MEDS: Amiodarone 200 MG Tablet PO (09:03)
[2024-10-11] MEDS: DULoxetine Hcl 20 MG Capsule PO (09:03)
[2024-10-11] MEDS: Cholecalciferol (Vit D3) 125 MCG CAPSULE (5,000 UNITS) PO (09:03)
[2024-10-11] MEDS: Montelukast 10 MG Tablet PO (09:03)
[2024-10-11] MEDS: Lactobacillis Acidophilus 1 CAP PO (09:03)
--- NOTE | 2024-10-11 11:34 | WOUNDNOTE ---
wound photo: left medial thigh
--- NOTE | 2024-10-11 11:36 | WOUNDNOTE ---
wound photo: right lateral leg
--- NOTE | 2024-10-11 12:35 | DS.PCM_ITS ---
Providers Date of Admission: 10/10/24 Date of Discharge: 10/11/24 Primary Care Physician: Dr. Tanya Pettit, DO Consultations 10/11/24 00:18 Consult: Infectious Disease Routine Consulting Provider: Chuckie Alicia Reason for Consult: Sepsis, Septic Encephalopathy, UTI and COVID+ EMERGENT Consult: No Notified: Yes Date Notified: 10/11/24 Time Notified: 07:35 Method of Notification: Text Consult: Mold Filling Operator / Pulmonary Medicine Routine Consulting Provider: Intensivists/Pulmonary Med Reason for Consult: Sepsis, Septic Encephalopathy, UTI and COVID+ EMERGENT Consult: No MD Notified: Yes Date Notified: 10/10/24 Time Notified: 04:01 Method of Notification: Text 10/11/24 01:51 Consult: Gastroenterology Routine Consulting Provider: [facility] Reason for Consult: CT evidence of Gastroduodenitis and Fecal Restention. EMERGENT Consult: No Notified: Yes Date Notified: 10/11/24 Time Notified: 07:33 Method of Notification: Text 10/11/24 07:22 Consult: Onc/Wound/equal opportunity assistant Routine Comment: Reason for Consult:: right and left thigh wounds, sacral wound Reason For Visit: SEPSIS AND SEPTIC ENCEPHALOPATHY DUE TO UTI Diagnosis Discharge Diagnosis (1) Sepsis: Status: Acute Code(s): A41.9 - Sepsis, unspecified organism Qualifiers: Sepsis type: sepsis due to unspecified organism Sepsis acute organ dysfunction status: with acute organ dysfunction Severe sepsis acute organ dysfunction type: encephalopathy Severe sepsis shock status: without septic shock Qualified Code(s): A41.9 - Sepsis, unspecified organism; R65.20 - Severe sepsis without septic shock; G93.41 - Metabolic encephalopathy (2) COVID-19: Status: Acute Code(s): U07.1 - COVID-19 Plan 73-year-old male presented with altered mental status and low blood pressure # Sepsis -Patient presented with white blood cell count of 23.8 with a left shift, INR of 1.8 despite not being on Coumadin and systolic blood pressures down to the 80s and patient did reach a MAP of 64, also tachypneic with respiratory rate up to 24?26 -Status post IV fluids -Chest x-ray with bilateral lower lobe atelectasis or infiltrates -UA with leuk esterase and white blood cells as well as 2+ bacteria but also with calcium oxalate crystals, hyaline and fine granular casts and mucus -Source of sepsis could be UTI versus pneumonia -Urine antigens negative -Patient does have blood and urine cultures pending -Continue meropenem, patient also on azithromycin chronically and this was continued -Infectious disease and pulm crit on board -Awaiting transfer to ICU in [facility] # Acute metabolic encephalopathy -Secondary to sepsis as above -CT with no acute changes # Gastroduodenitis and fecal retention -CT abdomen/pelvis with findings consistent of nonspecific gastroduodenitis -Continue PPI -GI consulted on admission -Will add rectal suppository given patient's fecal retention # COVID-19 positive -COVID precautions -[] -Infectious disease on board # History of asthma/ILD with antisynthetase syndrome -Patient uses 2 L nasal cannula as needed, was 89% shortly after arrival and was placed on 2 L nasal cannula -On chronic prednisone therapy with 10 mg daily, given COVID patient switched to dexamethasone -Patient remains on azithromycin and Bactrim which she takes chronically for this -Patient's mycophenolate on hold due to his left thigh abscess and has been I&D and -Continue Pulmicort -Add albuterol as needed -Pulmonology is consulted # Left thigh abscess with acid-fast bacilli -Status post I&D 09/08/2024 with abscess extending to fascia -X-ray on this presentation normal -Patient's mycophenolate on hold -Infectious disease consulted -Patient on ethambutol and rifabutin -Wound care consult # Paroxysmal atrial fibrillation -Patient remains on amiodarone and apixaban #Hypertension -Patient with soft blood pressure noted ICU, hold metoprolol #GERD -Continue PPI #Depression/anxiety -Continue home medications #DVT ppx: On Eliquis Jud Jack MD Time spent in the patient's overall evaluation, decision-making process, review of diagnostic data, adjustment of management, discussion with other providers, nursing and ancillary staff involved in patient's care documentation, 51 Minutes Medications at Discharge Home Medications cyanocobalamin (vitamin B-12) 500 mcg tablet 500 mcg PO DAILY vitamin 07/14/21 denosumab 60 mg/mL subcutaneous syringe (Prolia) 60 mg subcut [id number] low calcuim 07/14/21 pantoprazole 40 mg tablet,delayed release 40 mg PO DAILY reflux 07/14/21 budesonide 0.5 mg/2 mL suspension for nebulization (Pulmicort) 0.5 mg inhalation BID sob 01/01/22 cetirizine 10 mg tablet (Zyrtec) 10 mg PO DAILY PRN allergies 01/01/22 cholecalciferol (vitamin D3) 75 mcg (3,000 unit) tablet 150 mcg PO DAILY vitamin 01/01/22 lactobacillus combination no.9 4 billion cell capsule (Adult 50 Plus Probiotic) 4,000 mmu cells PO DAILY supplement 01/01/22 montelukast 10 mg tablet (Singulair) 10 mg PO DAILY allergies 05/12/23 mycophenolate mofetil 500 mg tablet 3,000 mg PO BID AUTOIMMUNE DISEASE 05/12/23 sulfamethoxazole 800 mg-trimethoprim 160 mg tablet (Bactrim DS) 1 tab PO .MWF ATB #1 TAB 08/30/24 L.acidophil,salivari-Bifido bifidum-Strep thermoph 175 mg capsule 1 cap PO DAILYCM #1 cap 09/22/24 acetaminophen 325 mg tablet 650 mg (2 x 325 mg) PO Q6H PRN PRN Pain Score 1-10 #1 TAB 09/22/24 amiodarone 200 mg tablet 200 mg PO DAILY #1 TAB 09/22/24 apixaban 5 mg tablet (Eliquis) 5 mg PO BID #1 TAB 09/22/24 azithromycin 250 mg tablet 500 mg (2 x 250 mg) PO QHS #1 TAB 09/22/24 duloxetine 20 mg capsule,delayed release 20 mg PO DAILY #1 cap 09/22/24 food supplemt, lactose-reduced 0.08 gram-1.5 kcal/mL oral liquid (Ensure Plus High Protein) 120 ml PO TIDCM #1 mL 09/22/24 gabapentin 300 mg capsule 300 mg PO TID #1 cap 09/22/24 metoprolol succinate 25 mg tablet,extended release 24 hr 25 mg PO DAILY #1 TAB 09/22/24 ondansetron 4 mg disintegrating tablet 4 mg PO Q8H PRN PRN Nausea/Vomiting #1 TAB 09/22/24 prednisone 10 mg tablet 10 mg PO DAILYCM #1 TAB 09/22/24 tramadol 50 mg tablet 50 mg PO Q6H PRN PRN Pain 4-10 #1 TAB 09/22/24 zinc sulfate 50 mg zinc (220 mg) capsule 50 mg PO DAILY #1 cap 09/22/24 ascorbic acid (vitamin C) 500 mg capsule 500 mg PO QHS 10/10/24 ethambutol 400 mg tablet 400 mg PO DAILY 10/10/24 loratadine 10 mg tablet 10 mg PO QHS 10/10/24 rifabutin 150 mg capsule 150 mg PO DAILY 10/10/24 Hospital Course Summary of Care Provided Minutes Spent on Discharge: 31 Hospital Course: Per HPI: YARON BUTLER, is a 73 M with a past medical history of essential hypertension; on metoprolol, hyperlipidemia, paroxysmal atrial fibrillation; on amiodarone and apixaban, history of BOOP, history of asthma/ILD with antisynthetase syndrome; on CellCept and prednisone on chronic suppressive Bactrim DS and azithromycin, chronic hypoxic respiratory failure on 2 L nasal (intermittent), recent cutaneous abscess of Left thigh with chronically nonhealing wound; s/p I&D on September 08, 2024 with abscess extending to fascia with positive acid-fast stain on ethambutol and rifabutin followed previously by Dr. Alicia of infectious diseases with patient ultimately sent to [facility] under the care of Dr. Soares, history of shingles, history of COVID-19, history of RBBB, history of Left thyroid nodule (04/2024) with biopsy positive for benign follicular/colloid nodule, history of umbilical hernia repair, history of inguinal hernia repair, history of orthostatic hypotension, history of NAFLD, disorder of zinc metabolism, history of renal calculi; s/p stent (2020), chronic neuropathic pain; on as needed tramadol and gabapentin, depression; on duloxetine, BPH, GERD chronic severe protein calorie malnutrition with oropharyngeal dysphagia and adult [id number] with generalized weakness and frequent falls, osteoporosis; on Prolia, history of gout, osteoarthritis and chronically strained relationship with his complicating his previous admission who re-presents to [facility] ER after staff at his [facility]CF noted altered mental status and low blood pressure. Mr. Butler is not a fully reliable historian at this time so information From chart, medical staff and computer. According to the records the family informed the ER physician that the ECF staff contacted them and noted he was not acting like himself with significant confusion and unspecified hypotension culminating in patient being recommended to transfer to the ER for further evaluation and treatment. The family also stated they felt the patient was dehydrated and they were unsure if the abscesses in his thigh were returning or he had some other source of infection. In the ER he was noted to have severe leukocytosis of 23.8K present on admission along with a urinalysis positive for evidence of acute cystitis; with microscopic hematuria concerning for sepsis complicated by clinical evidence of septic encephalopathy along with a CT scan of the abdomen and pelvis consistent with nonspecific gastroduodenitis in addition to bilateral nephrolithiasis without evidence for renal obstruction and diffuse fecal retention within the colon and mild rectal impaction of uncertain clinical significance plus laboratory evidence of hypokalemia of 3.3 mmol/L present on admission. I spoke with the ER physician and the swing shift hospitalist who is familiar with this patient from his recent admission with a strong recommendation patient should transfer to [facility] given his acute severe illness, chronic medical complexity and suboptimal relationship dynamics with his . While we are awaiting a bed patient had sepsis orders written with patient started on empiric IV Merrem in addition to sepsis fluid boluses per protocol. He was then admitted to the ICU for ongoing care for stay that is expected to extend beyond 2 midnights. INTERVAL HISTORY: Patient admitted in ICU, seen prior to discharge with family at bedside and reports he is feeling a little bit better and is more alert and able to answer questions. No new or acute complaints. [facility] had bed become available for patient so he was transferred in stable condition Physical Exam Narrative General: Alert, no acute distress HEENT: Atraumatic, normocephalic Eyes: extraocular movements grossly intact Neck: Supple Respiratory: Somewhat diminished at the bases Cardiovascular: no edema appreciated GI: nondistended Extremities: Moving all extremities Neuro: No overt focal neurological deficits Psych: Cooperative Weight / BMI Weight Weight: 75.1 kg Body Mass Index (BMI) 23.7 ABG / Lab / Microbiology Data 10/11/24 05:25 10/11/24 05:25 Laboratory: Laboratory Results - last 24 hr 10/10/24 18:20: WBC 23.8 H, RBC 4.29 L, Hgb 12.5 L, Hct 39.4 L, MCV 91.8, MCH 29.1, MCHC 31.7 L, RDW Std Deviation 53.5 H, RDW Coeff of Opal 16.0 H, Plt Count 442, MPV 9.2, Immature Gran % (Auto) 0.800, Neut % (Auto) 90.2 H, Lymph % (Auto) 1.9 L, Chase % (Auto) 6.3, Eos % (Auto) 0.5, Baso % (Auto) 0.3, Absolute Neuts (auto) 21.5 H, Absolute Lymphs (auto) 0.44 L, Nucleated RBC % 0, Differential Comment , Platelet Estimate ADEQUATE, Hypochromasia RARE, PT 20.4 H, INR 1.8, APTT 35.0, Sodium 136, Potassium 3.3 L, Chloride 103, Carbon Dioxide 28.0, Anion Gap 5, BUN 18, Creatinine 1.18, Estim Creat Clear Calc 59.29, Est GFR (MDRD) Af Amer 78, Est GFR (MDRD) Non-Af 65, BUN/Creatinine Ratio 15.3, Glucose 116 H, Hemoglobin A1c 5.0, Lactic Acid 1.5, Calcium 10.3 H, Phosphorus 2.8, Magnesium 2.0, Total Bilirubin 0.50, AST 13 L, ALT 20, Alkaline Phosphatase 59, Troponin I High Sens 7, Total Protein 5.9 L, Albumin 2.2 L, Globulin 3.7, Albumin/Globulin Ratio 0.6 L, Folate 3.00 L, TSH 2.120 10/10/24 20:55: Urine Color Yellow, Urine Clarity Cloudy, Urine pH 6.0, Ur Specific Kittrell 1.010, Urine Protein 30 H, Urine Glucose (UA) Normal, Urine Ketones Negative, Urine Occult Blood 250 H, Urine Nitrite Negative, Urine Bilirubin Negative, Urine Urobilinogen Normal, Ur Leukocyte Esterase 100 H, Urine RBC 10-25 SEEN, Urine WBC 50-100 SEEN, Ur Squamous Epith Cells 0-5 SEEN, Calcium Oxalate Crystal 2+, Urine Bacteria 2+, Hyaline Casts 10-25 SEEN, Fine Granular Casts 0-5 SEEN, Urine Mucus 3+ 10/11/24 01:05: Lactic Acid 1.1, Vitamin B12 1601 H 10/11/24 05:25: WBC 20.0 H, RBC 3.84 L, Hgb 11.2 L, Hct 36.0 L, MCV 93.8, MCH 29.2, MCHC 31.1 L, RDW Std Deviation 54.8 H, RDW Coeff of Opal 16.1 H, Plt Count 384, MPV 8.9, Immature Gran % (Auto) 1.300 H, Neut % (Auto) 89.9 H, Lymph % (Auto) 1.8 L, Chase % (Auto) 5.7, Eos % (Auto) 0.9, Baso % (Auto) 0.4, Absolute Neuts (auto) 18.0 H, Absolute Lymphs (auto) 0.36 L, Nucleated RBC % 0, Sodium 138, Potassium 3.8, Chloride 109 H, Carbon Dioxide 26.0, Anion Gap 3 L, BUN 15, Creatinine 0.92, Estim Creat Clear Calc 76.04, Est GFR (MDRD) Af Amer 104, Est GFR (MDRD) Non-Af 86, BUN/Creatinine Ratio 16.3, Glucose 99, Calcium 9.5, Phosphorus 3.1, Magnesium 1.9, Total Bilirubin 0.50, AST 17, ALT 20, Alkaline Phosphatase 52, Total Protein 5.4 L, Albumin 1.9 L, Globulin 3.5, A lbumin/Globulin Ratio 0.5 L Microbiology: Microbiology 10/10/24 20:55 Urine Catheter - Catheter Legionella Antigen - Final 10/10/24 20:55 Urine Catheter - Catheter Streptococcus pneumoniae Antigen (M - Final 10/10/24 18:45 Mucosa - Nose SARS-CoV-2, Influenza & RSV (PCR) - Final SARS-CoV-2 (COVID 19 PCR) ABG: ABG 10/11/24 07:02 Specimen Type ANNETTE Sample Site Not entered O2 % 2.0 VBG pH 7.36 VBG pO2 32 VBG HCO3 26 VBG Total CO2 28 VBG O2 Sat (Calc) 57 VBG Base Excess 1 POC Mix VBG pCO2 Pt Tmp 46.7 O2 Delivery Device Not entered Radiography Diagnostic Testing: Radiology Impression Brain CT 10/10/24 18:37 IMPRESSION: Mild atrophy and periventricular white matter ischemic change. No acute bleed. If concern for acute infarct MRI recommended Electronically Signed: Curry Mejia MD at 19:38 EST , Chest X-Ray 10/10/24 19:03 IMPRESSION: Bilateral lower lobe atelectasis or infiltrates. Electronically Signed: Curry Mejia MD at 19:46 EST , Abdomen/Pelvis CT 10/10/24 19:08 IMPRESSION: Findings which may be consistent with nonspecific gastroduodenitis Bilateral nephrolithiasis without evidence for renal obstruction Diffuse fecal retention within the colon and mild rectal impaction of uncertain clinical significance. No evidence for small bowel obstruction or other acute findings Electronically Signed: Curry Mejia MD at 20:43 EST , Femur X-Ray 10/10/24 19:40 IMPRESSION: Normal x-ray examination of the femur. Electronically Signed: Curry Mejia MD at 20:19 EST , Knee X-Ray 10/10/24 19:40 IMPRESSION: No evidence for acute fracture or dislocation. Degenerative changes. . Postsurgical changes of the lateral knee. No definitive evidence for acute osteomyelitis or focal abscess Electronically Signed: Curry Mejia MD at 20:19 EST , Chest X-Ray 10/11/24 05:20 IMPRESSION: Patchy groundglass opacities in the right upper lobe, right lower lobe and left lower lobe suggesting atypical pneumonia. There has been no significant change since the previous study. Electronically Signed: Danie Rossi MD at 7:27 EST , D/C Instructions DC O2, CPAP, BIPAP Needs Additional Home O2 Discharge instructions: No DC home with Oxygen: No Meaningful Use Info Meaningful Use Meaningful Use Diagnoses (Choose all that apply): None applicable Ischemic Stroke Statin Dosing Therapy Reference: STATIN DOSE THERAPY REFERENCE: * Patients > 75 years receive moderate or high dose statin therapy. * Patients 75 years or YOUNGER should receive HIGH intensity statin dose unless contraindicated. You will be required to document reason for non-treatment if statin daily dose does not meet guidelines. HIGH DOSE STATIN THERAPY DAILY Atorvastatin > than or = to 40 mg Rosuvastatin > than or = to 20 mg Amlodipine + Atorvastatin > than or = to 2.5/40 mg Ezetimibe + Simvastatin 10/80 mg Simvastatin 80mg Discharge Plan Admission Admit Date/Time: 10/10/24 22:17 Primary Reason for Your Visit: Sepsis Attending Provider: Jud Jack Primary Care Provider: Tanya Pettit Consulting Providers: Rowdy Kraft; Gt De Los Santos; Robert Thao; Yoav Carrington; Mo Boone; Dmitriy Blankenship; Terry Russell; Yohana Rivera; Deion Ta; Pierre Lozano; Sylvie Peterson; Gabe Catherine; Willem Tong; Cruz Serna; Leon Valente; Edgar Perez; Omar House; Popeye Mancini; Monroe Persaud; Juventino Masterson; Mo Joel; Chuckie Alicia Discharge Orders/Prescriptions Prescriptions: No Action pantoprazole 40 mg tablet,delayed release (DR/EC) 40 mg PO DAILY Prolia 60 mg/mL syringe 60 mg subcut [id number] cyanocobalamin (vitamin B-12) 500 mcg tablet 500 mcg PO DAILY cholecalciferol (vitamin D3) 75 mcg (3,000 unit) tablet 150 mcg PO DAILY Adult 50 Plus Probiotic 4 billion cell capsule 4,000 mmu cells PO DAILY Rx Instructions: administer with a meal budesonide [Pulmicort] 0.5 mg/2 mL suspension for nebulization 0.5 mg inhalation BID cetirizine [Zyrtec] 10 mg tablet 10 mg PO DAILY PRN (Reason: allergies) mycophenolate mofetil 500 mg tablet 3,000 mg PO BID montelukast [Singulair] 10 mg tablet 10 mg PO DAILY sulfamethoxazole-trimethoprim [Bactrim DS] 800-160 mg tablet 1 tab PO .MWF Qty: 1 0RF Rx Instructions: take every MWF acetaminophen 325 mg Tablet 650 mg PO Q6H PRN PRN (Reason: Pain Score 1-10) Qty: 1 0RF amiodarone 200 mg Tablet 200 mg PO DAILY Qty: 1 0RF Eliquis 5 mg Tablet 5 mg PO BID Qty: 1 0RF Rx Instructions: LAST DOSE 09/22/24 AT 10 AM. ON HOLD FOR ANTICIPATED SURGERY azithromycin 250 mg Tablet 500 mg PO QHS Qty: 1 0RF gabapentin 300 mg Capsule 300 mg PO TID Qty: 1 0RF duloxetine 20 mg Capsule,Delayed Release(Dr/Ec) 20 mg PO DAILY Qty: 1 0RF L.acidoph,saliva-B.bif-S.therm 175 mg Capsule 1 cap PO DAILYCM Qty: 1 0RF Ensure Plus High Protein 0.08 gram-1.5 kcal/mL Liquid 120 ml PO TIDCM Qty: 1 0RF prednisone 10 mg Tablet 10 mg PO DAILYCM Qty: 1 0RF tramadol 50 mg Tablet 50 mg PO Q6H PRN PRN (Reason: Pain 4-10) Qty: 1 0RF metoprolol succinate 25 mg Tablet Extended Release 24 Hr 25 mg PO DAILY Qty: 1 0RF ondansetron 4 mg Tablet,Disintegrating 4 mg PO Q8H PRN PRN (Reason: Nausea/Vomiting) Qty: 1 0RF zinc sulfate 50 mg zinc (220 mg) Capsule 50 mg PO DAILY Qty: 1 0RF ascorbic acid (vitamin C) 500 mg capsule 500 mg PO QHS loratadine 10 mg tablet 10 mg PO QHS ethambutol 400 mg tablet 400 mg PO DAILY rifabutin 150 mg capsule 150 mg PO DAILY Referrals / Follow Up: Fast,Tanya, DO [Primary Care Provider] - Disposition Disposition (needs filled in before D/C Order can be placed): Acute Care Hospital Charges/Coding Visit Charges Inpatient E&M: 51557 Disch Hosp >30min
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
--- NOTE | 2024-10-11 13:06 | NURSING ---
report called to Mio at [facility] at this time
--- NOTE | 2024-10-11 17:31 | CASEMGMT ---
Social Work- SW verified with bedside RN that pt meeting with a band tacker for POA papers did not occur, as pt transport for [facility] did not allow for time. No POA papers completed while at [facility]. EDMUND Aquino
== END 2024-10-11 14:42 | disposition short-term general hospital (02) | DRG 871 ==
LOC: ED 22:21 → ICU 23:56
PROVIDERS: Admitting Provider Internal Medicine; Emergency Provider Emergency Medicine; PCP Internal Medicine; Visit Provider Internal Medicine
DX: A41.9 Sepsis, unspecified organism (principal); U07.1 COVID-19; E43 Unspecified severe protein-calorie malnutrition; J12.82 Pneumonia due to coronavirus disease 2019; G93.41 Metabolic encephalopathy; J96.11 Chronic respiratory failure with hypoxia; N30.01 Acute cystitis with hematuria; R62.7 Adult failure to thrive; I48.0 Paroxysmal atrial fibrillation; I10 Essential (primary) hypertension; F32.A Depression, unspecified; K56.41 Fecal impaction; R65.20 Severe sepsis without septic shock; K29.90 Gastroduodenitis, unspecified, without bleeding; E78.2 Mixed hyperlipidemia; E87.6 Hypokalemia; S71.102S Unspecified open wound, left thigh, sequela; K21.9 Gastro-esophageal reflux disease without esophagitis; E53.8 Deficiency of other specified B group vitamins; G62.9 Polyneuropathy, unspecified; F41.9 Anxiety disorder, unspecified; D89.89 Other specified disorders involving the immune mechanism, not elsewhere classified; Z68.24 Body mass index [BMI] 24.0-24.9, adult; R13.12 Dysphagia, oropharyngeal phase; M81.0 Age-related osteoporosis without current pathological fracture; N40.0 Benign prostatic hyperplasia without lower urinary tract symptoms; N20.0 Calculus of kidney; I49.3 Ventricular premature depolarization; Z99.81 Dependence on supplemental oxygen; Z79.01 Long term (current) use of anticoagulants; Z79.2 Long term (current) use of antibiotics; Z79.51 Long term (current) use of inhaled steroids; Z79.899 Other long term (current) drug therapy
CPT/HCPCS: 70450; 71045; 71046; 73552; 73562; 74177; 80053; 81001; 82607; 82746; 82803; 83036; 83605; 83735; 84100; 84443; 84484; 85025; 85610; 85730; 87040; 87086; 87449; 87631; 93005; 99285; J2185; J7030; Q9967; A4216; J3490

== ENCOUNTER 2025-05-21 23:02 | Inpatient (IN) | payer MEDICARE, SELFPAY ==
[2025-05-21 21:30] VITALS: O2SAT 98
[2025-05-21 21:56] VITALS: BMI 23.3
[2025-05-21 22:00] VITALS: BP 107/43; PULSE 87; RESP 18; TEMP 36.6; O2SAT 97
--- NOTE | 2025-05-21 22:47 | HP.PCM.HOS_ITS ---
HPI - General General Date of Admission: 05/21/25 Date of Service: 05/21/25 Chief Complaint: Nausea, Vomiting and Generalized Abdominal Pain. 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 Hoskins from orthopedic surgery with patient declining potentially curative AKA, history of Left upper extremity weakness and bilateral foot drop with inability to dorsiflex previously worked up at [facility], osteoporosis; on denosumab, interstitial lung disease with asthma; on mycophenolate mofetil 3g BID, prednisone 20 mg daily, montelukast and budesonide twice daily, history of PEG tube placement for protein calorie malnutrition in setting of chronic infection, history of vasovagal syncope and fatty liver disease who was transferred from [facility] after he was noted to complain of nausea, vomiting and generalized abdominal discomfort. He had a CT scan at their institution that showed a large stone at the Left UPJ with subsequent call made to Dr. Bullard of urology who accepted patient but wanted the hospitalist service to admit the patient with formal consultation pending in a.m. He was treated empirically with IV ceftriaxone. He was also noted to have gallstones on CT but the ER physician at [place] informed the swing shift hospitalist he did not feel like the patient was presenting like an acute pancreatitis. His CT scan of the abdomen and pelvis there revealed mild stranding adjacent to the head of the pancreas and mild wall thickening of the adjacent duodenum with findings concerning for mild pancreatitis and recommendation made for correlation with laboratory values with possible representation of duodenitis, low-attenuation lesion in the head of the pancreas consider MRI for further characterization in 6 months to evaluate for change, age indeterminant T11 and T12 wedge compression fractures with T12 fracture demonstrating retropulsion to the posterior vertebral body cortex approximately ~0.5 cm, large thyroid nodule recommended dedicated thyroid ultrasound for further characterization, bilateral chronic interstitial lung disease, gallbladder is present with stone layering in the gallbladder measuring ~0.4 by ~0.7 cm with additional smaller punctate stones seen in the gallbladder neck measuring ~0.3 cm in addition to large stone at the Left UPJ with surrounding ureteral wall thickening and stranding without hydronephrosis with correlation recommended for inflammation, infection or neoplasm. He was also noted to have normal white blood cell count of 9.3K, hemoglobin of 11.1 g/dL, MCV of 88 fL, and platelet count of 370 K, sodium 137 mmol/L, potassium 4 mmol/L, chloride 102, CO2 34, BUN 37 mg/dL, creatinine 1.23 mg/dL glucose 110 mg/dL AST 15U/L, ALT 24U/L and alkaline phosphatase 76U/L, calcium 9 mg/dL, albumin 2.7 g/dL and total bilirubin of 0.2 mg/dL, lipase 583 and UA positive for 100 protein, 250 blood, 500 leukocyte esterase, negative nitrites and 3+ bacteria. His TSH was noted to be within normal limits thyroid ultrasound will be deferred to outpatient follow-up with endocrinology or PCP. He was then admitted to the PCU for ongoing care for stay that is expected to extend beyond 2 midnights. [facility] Medical History Thyroid cyst Allergic rhinitis Major depressive disorder BPH (benign prostatic hyperplasia) Low back pain Disorder of zinc metabolism GERD (gastroesophageal reflux disease) Osteoporosis Adult failure to thrive Right bundle branch block Hypertension Atrial fibrillation Dysphagia, oropharyngeal Abscess of right lower extremity Personal history of immunosupression therapy Orthostatic hypotension PAF (paroxysmal atrial fibrillation) Steroid dependence Neuropathic pain Antisynthetase syndrome History of shingles Ambulatory dysfunction Shingles Abscess of left thigh BOOP (bronchiolitis obliterans with organizing pneumonia) Wears glasses High cholesterol Easy bruising Back pain Injury of head and neck Blackout Gastric reflux Non-smoker On home oxygen therapy Hoarseness Chronic cough History of echocardiogram Hypertension History of stress test Cardiology follow-up encounter History of atrial fibrillation Atrial fibrillation COVID-19 Osteoporosis Kidney stones Atrial fibrillation RBBB (right bundle branch block) Antisynthetase syndrome Essential hypertension Mixed hyperlipidemia Asthma Interstitial lung disease GERD (gastroesophageal reflux disease) Fatty liver BPH (benign prostatic hyperplasia) Lung nodule Vasovagal syncope Abnormal cardiac CT angiography Home Medications ?Medication ?Instructions ?Recorded ?Last Taken ?Type cyanocobalamin (vitamin B-12) 500 500 mcg PO DAILY vit hobson 07/14/21 05/20/25 History mcg tablet denosumab 60 mg/mL subcutaneous 60 mg subcut [id number] low calcuim 07/14/21 Unknown History syringe (Prolia) pantoprazole 40 mg tablet,delayed 40 mg PO DAILY reflu x 07/14/21 05/21/25 09:00 History release budesonide 0.5 mg/2 mL suspension 0.5 mg inhalation BI D sob 01/01/22 05/21/25 09:00 History for nebulization (Pulmicort) cholecalciferol (vitamin D3) 75 150 mcg PO DAILY vitam in 01/01/22 08/30/24 History mcg (3,000 unit) tablet lactobacillus combination no.9 4 4,000 mmu cells PO DA ROBERT supplement 01/01/22 05/21/25 09:00 History billion cell capsule (Adult 50 Plus Probiotic) montelukast 10 mg tablet 10 mg PO DAILY allergies 05/21/25 History (Singulair) mycophenolate mofetil 500 mg tablet 3,000 mg PO BID AU TOIMMUNE DISEASE 05/12/23 Unknown History Held on 09/22/24. Instructions: Held because of abscess left thigh. sulfamethoxazole 800 1 tab PO .MWF ATB #1 TAB 08/1505/20/25 09:00 Rx mg-trimethoprim 160 mg tablet 1 TAB (Bactrim DS) L.acidophil,salivari-Bifido 1 cap PO DAILYCM #1 cap 05/21/25 09:00 Rx bifidum-Strep thermoph 175 mg 1 cap capsule acetaminophen 325 mg tablet 650 mg (2 x 325 mg) PO Q6H PRN PRN 09/22/24 Unknown Rx Pain Score 1-10 #1 TAB amiodarone 200 mg tablet 200 mg PO DAILY #1 TAB 09/22 Unknown Rx apixaban 5 mg tablet (Eliquis) 5 mg PO BID #1 TAB 12/1505/21/25 09:00 Rx 5 mg azithromycin 250 mg tablet 500 mg (2 x 250 mg) PO QHS #1 TAB 09/22/24 05/21/25 09:00 Rx 500 mg food supplemt, lactose-reduced 120 ml PO TIDCM #1 mL 1 11/22/23 Unknown Rx 0.08 gram-1.5 kcal/mL oral liquid (Ensure Plus High Protein) metoprolol succinate 25 mg 25 mg PO DAILY #1 TAB 09/2205/21/25 09:00 Rx tablet,extended release 24 hr ondansetron 4 mg disintegrating 4 mg PO Q8H PRN PRN 05/20/25 22:00 Rx tablet Nausea/Vomiting #1 TAB 4 mg zinc sulfate 50 mg zinc (220 mg) 50 mg PO DAILY #1 cap 09/22/24 Unknown Rx capsule ascorbic acid (vitamin C) 500 mg 500 mg PO QHS 4 05/20/25 History capsule ethambutol 400 mg tablet 400 mg PO DAILY 10/10/24 09:00 History 400 mg rifabutin 150 mg capsule 150 mg PO DAILY 10/10/24 Unk nown History prednisone 10 mg tablet 20 mg PO DAILYCM 05/21/25 History Allergy/AdvReac Type Severity Reaction Status Date / Time monosodium glutamate Allergy Abd Verified 10/10/24 18:08 cramps/diarrhea Penicillins (PCN) Allergy Rash Verified 10/10/24 18:08 allopurinol AdvReac Unknown cough Verified 10/10/24 18:08 morphine AdvReac Other Verified 10/10/24 18:08 tamsulosin (From Flomax) AdvReac Other Verified 10/10/24 18:08 Family History Grandfather CVA (cerebral vascular accident) Grandmother Congestive heart failure Grandmother Cardiac pacemaker in situ Mother Heart disease Hypertension Father Heart disease Cardiac arrhythmia Surgical History History of incision and drainage Hx of cystoscopy History of umbilical hernia repair History of inguinal hernia repair Social History household members: spouse Smoking Status: Never smoker alcohol intake: current details: Rare substance use type: does not use caffeine: Yes Type: coffee Number of servings: 1 Vital Signs Vital Signs Vital Signs: Weight Weight: 162 lb 4.163 oz Body Mass Index (BMI) 23.3 Results Lab / Micro Data 05/21/25 23:56 05/21/25 23:56 Assessment & Plan Assessment/Plan (1) Ureteral calculus, left: (2) Acute cystitis with hematuria: (3) Nausea & vomiting: QUALIFIERS: Vomiting type: bilious vomiting Qualified Code(s): R 11.14 - Bilious vomiting (4) Abdominal pain: QUALIFIERS: Abdominal location: generalized Qualified Code(s): R 10.84 - Generalized abdominal pain (5) Abnormal CT scan: PLAN: Plan 1. Large stone at the Left UPJ - Admit to PCU. Continue empiric IV ceftriaxone begun at previous hospital. Give acetaminophen as needed for [id number] (level 1-5/10) pain or fever. Give morphine IV as needed for severe (level 6- 10/10) pain. Finally, we will consult Dr. Bullard of the urology service to see this patient on rounds in the a.m. for further recommendations regarding ureteral stent placement with help appreciated in advance. 2. UA positive for Acute Cystitis; with hematuria complicating #1 - Patient started on IV ceftriaxone. We will now await culture and sensitivity data. 3. Nausea, Vomiting and Generalized Abdominal Pain due to #1 & #2 - Give ondansetron IV prn for nausea and vomiting. Give promethazine IM prn for breakthrough nausea. Placed on aspiration precautions. 4. Recent CT scan at [facility] that revealed mild stranding adjacent to the head of the pancreas and mild wall thickening of the adjacent duodenum with findings concerning for mild pancreatitis and recommendation made for correlation with laboratory values with possible representation of duodenitis, low-attenuation lesion in the head of the pancreas consider MRI for further characterization in 6 months to evaluate for change adding to the medical complexity of #1 - #3 - Noted. We will check MRCP to further delineate any potential pancreatic pathology with low suspicion at this time for acute pancreatitis/duodenitis. Recheck Lipase in AM to follow trend. Finally, if MRCP findings are suggestive and CMP shows rising LFTs and/or bilirubin formal GI consultation may be required this admission. 5. 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 Hoskins from orthopedic surgery with patient declining potentially curative AKA adding to the burden of disease outlined from #1 - #4 - Noted. We will continue current antibiotic regimen to prevent flare. 6. History of Left upper extremity weakness and bilateral foot drop with inability to dorsiflex previously worked up at [facility] with recent revealing age indeterminant T11 and T12 wedge compression fractures with T12 fracture demonstrating retropulsion to the posterior vertebral body cortex approximately ~0.5 cm - Noted. 7. Asthma/Interstitial Lung Disease; on mycophenolate mofetil 3g BID, prednisone 20 mg daily, montelukast and budesonide twice daily - Hold mycophenolate with active UTI. Restart when okay with urology. Otherwise maintain home regimen. 8. Paroxysmal atrial fibrillation; on amiodarone and apixaban - Hold apixaban with urologic procedure pending in AM. Continue amiodarone as previous. 9. Large thyroid nodule recommended dedicated thyroid ultrasound for further characterization - Noted with patient to be instructed to follow-up with PCP or endocrinology as outpatient. 10. History of PEG tube placement for protein calorie malnutrition in setting of chronic infection - Hold PEG tube feedings until urologic procedure completed and then restart. 11. Essential hypertension; on metoprolol - Continue metoprolol as previous plus give as needed IV hydralazine for systolic blood pressure greater than 160 mmHg. 12. Osteoporosis; on denosumab - Restart denosumab as outpatient. 13. History of vasovagal syncope - Noted. 14. Fatty liver disease - Stable. who was transferred from [facility] after he was noted to complain of nausea, vomiting and generalized abdominal discomfort. 15. DVT prophylaxis - SCD's only with impending urologic procedure in a.m. Total time: Approximately (but not less than) 75 minutes. Charges/Coding Visit Charges Inpatient E&M: 92799 Init Hosp L3
[2025-05-22] VITALS (9 sets, daily range): BP systolic 100–114; BP diastolic 55–61; PULSE 76–97; RESP 16–18; TEMP 36.4–36.7; O2SAT 95–98; BMI 23.3
[2025-05-22 00:07] LABS: Hematocrit 33.5 % (40-54); Hemoglobin 9.8 g/dL (13.0-16.5); Mean Corp Hgb Conc 29.3 g/dL (32-36); Mean Corpuscular Volume 91.8 fL (80-94); Mean Platelet Vol. 10.2 fl (6.2-12.0); Platelet Count 339 K/mm3 (150-450); RBC Distribution Width CV 18.4 % (11.6-14.6); RBC Distribution Width SD 61.1 fl (35.1-43.9); Red Blood Count 3.65 M/mm3 (4.6-6.2); White Blood Count 13.8 K/mm3 (4.4-11.0)
[2025-05-22] MEDS: 0.9% Saline Lock 10 ML Syringe IV (00:35)
[2025-05-22] MEDS: 0.9% Normal Saline (1000mL) 1,000 ML 70 ML IV (00:35)
[2025-05-22 00:41] LABS: AST(SGOT) 18 U/L (<=37); Alanine Aminotransfer ALT/SGPT 13 U/L (<=46); Albumin, Serum 3.3 g/dL (3.4-4.8); Alkaline Phosphatase 74 U/L (40-129); Anion Gap 10 (5-15); BUN 27 mg/dL (4-19); BUN/Creat Ratio 27.2 RATIO (10-20); Calcium,Total 8.9 mg/dL (7.6-11.0); Carbon Dioxide 22.3 mmol/L (21.0-32.0); Chloride 107 mmol/L (98-108); Estimated Creatinine Clearance 69.64 ml/min (50-250); Globulin 3.1 g/dL (2.2-4.2); Glucose 84 mg/dL (70-99); Magnesium 2.1 mg/dL (1.5-2.2); Potassium 4.7 mmol/L (3.3-5.1); Vitamin B12 848 pg/mL (180-914)
[2025-05-22 01:09] LABS: FOLATES,SERUM (FOLIC ACID) 36.50 ng/mL (4.60-34.80)
--- NOTE | 2025-05-22 05:55 | EKG12_ITS ---
Test Reason : PRE-OP Blood Pressure : */* mmHG Vent. Rate : 96 BPM Atrial Rate : 96 BPM P-R Int : 126 ms QRS Dur : 112 ms QT Int : 376 ms P-R-T Axes : 13 -53 -1 degrees QTcB Int : 475 ms Normal sinus rhythm Incomplete right bundle branch block Left anterior fascicular block Abnormal ECG When compared with ECG of 10-Oct-2024 18:40, Premature ventricular complexes are no longer Present Premature atrial complexes are no longer Present Incomplete right bundle branch block has replaced Right bundle branch block Confirmed by JOSE ESCALERA, LINSEY ([id number]), photo editor SEA FIGUEROA ([id number]) on 05/23/2025 8:09:36 AM Referred By: Deepak Hall Confirmed By: LINSEY GARCIA MD
[2025-05-22 06:22] LABS: Hematocrit 33.1 % (40-54); Hemoglobin 9.6 g/dL (13.0-16.5); Immature Granulocytes Count 0.040 X10^3/uL (0.0-0.0); Mean Corp Hgb Conc 29.0 g/dL (32-36); Mean Corpuscular Volume 94.3 fL (80-94); Mean Platelet Vol. 10.4 fl (6.2-12.0); NRBC Flagged by Analyzer 0 % (0-5); POSITIVE DIFFERENTIAL YES; Platelet Count 330 K/mm3 (150-450); RBC Distribution Width CV 18.4 % (11.6-14.6); RBC Distribution Width SD 62.0 fl (35.1-43.9); Red Blood Count 3.51 M/mm3 (4.6-6.2); White Blood Count 11.7 K/mm3 (4.4-11.0)
[2025-05-22 06:39] LABS: Mucous, Urine 0 SEEN /hpf (<or=2+)
[2025-05-22 06:47] LABS: Glucose, Dipstick Normal (Normal); Ketone-Dipstick Negative (Negative); Leukocyte Esterase-Dipstick 100 /ul (Negative); Nitrite-Dipstick Negative (Negative); Occult Blood-Urine 250 /ul (Negative); Protein-Dipstick 30 mg/dl (Negative); Specific Gravity, Urine 1.015 (1.002-1.030); Urine Bilirubin Dipstick Negative (Negative)
[2025-05-22 06:51] LABS: AST(SGOT) 18 U/L (<=37); Alanine Aminotransfer ALT/SGPT 13 U/L (<=46); Albumin, Serum 3.2 g/dL (3.4-4.8); Alkaline Phosphatase 73 U/L (40-129); Anion Gap 12 (5-15); BUN 26 mg/dL (4-19); BUN/Creat Ratio 26.3 RATIO (10-20); Calcium,Total 8.9 mg/dL (7.6-11.0); Carbon Dioxide 21.0 mmol/L (21.0-32.0); Chloride 109 mmol/L (98-108); Estimated Creatinine Clearance 70.35 ml/min (50-250); Globulin 2.8 g/dL (2.2-4.2); Glucose 68 mg/dL (70-99); Potassium 4.4 mmol/L (3.3-5.1)
[2025-05-22 07:26] LABS: Color, Urine Yellow (Yellow)
[2025-05-22 07:30] LABS: Red Blood Cells-Urine 25-50 SEEN /hpf (0-5); Squamous Epithelial Cells - UA 0-5 SEEN /hpf (0-5)
--- NOTE | 2025-05-22 07:33 | PCM.PN.HOSP ---
Reason for Visit Reason for Visit: Diagnoses Acute cystitis with hematuria (05/21/25) Generalized abdominal pain (05/21/25) Bilious vomiting (05/21/25) Objective Data Objective Data Vital Signs: Vital Signs Temp Pulse Resp BP Pulse Ox O2 Del Method O2 Flow Rate 97.9 F 97 18 114/59 L 95 Nasal Cannula 2 05/22/25 06:20 05/22/25 06:20 05/22/25 06:20 05/22/25 06:20 05/22/25 06:20 05/22/25 06:20 05/22/25 06:20 Oxygen Flow Rate (L/min) 2 Oxygen Delivery Method Nasal Cannula Weight: 162 lb 4.163 oz Body Mass Index (BMI) 23.3 Intake & Output: Intake and Output for Last 24 Hours 05/20/25 05/21/25 05/22/25 23:59 23:59 23:59 Output Total 300 / 300 Balance -300 / -300 Lab / Micro Data 05/22/25 04:45 05/22/25 04:45 Labs: Laboratory Results - last 24 hr 05/21/25 23:56: WBC 13.8 H, RBC 3.65 L, Hgb 9.8 L, Hct 33.5 L, MCV 91.8, MCH 26.8 L, MCHC 29.3 L, RDW Std Deviation 61.1 H, RDW Coeff of Opal 18.4 H, Plt Count 339, MPV 10.2, Sodium 139, Potassium 4.7, Chloride 107, Carbon Dioxide 22.3, Anion Gap 10, BUN 27 H, Creatinine 0.99, Estim Creat Clear Calc 69.64, Est GFR (MDRD) Non-Af 81, BUN/Creatinine Ratio 27.2 H, Glucose 84, Calcium 8.9, Magnesium 2.1, Total Bilirubin 0.33, AST 18, ALT 13, Alkaline Phosphatase 74, Total Protein 6.3, Albumin 3.3 L, Globulin 3.1, Albumin/Globulin Ratio 1.1, Vitamin B12 848, Serum Folate 36.50 H 05/22/25 04:45: WBC 11.7 H, RBC 3.51 L, Hgb 9.6 L, Hct 33.1 L, MCV 94.3 H, MCH 27.4, MCHC 29.0 L, RDW Std Deviation 62.0 H, RDW Coeff of Opal 18.4 H, Plt Count 330, MPV 10.4, Immature Gran % (Auto) 0.300, Neut % (Auto) 83.0 H, Lymph % (Auto) 4.1 L, [place] % (Auto) 8.6, Eos % (Auto) 3.5, Baso % (Auto) 0.5, Absolute Neuts (auto) 9.7 H, Absolute Lymphs (auto) 0.48 L, Nucleated RBC % 0, Sodium 141, Potassium 4.4, Chloride 109 H, Carbon Dioxide 21.0, Anion Gap 12, BUN 26 H, Creatinine 0.98, Estim Creat Clear Calc 70.35, Est GFR (MDRD) Non-Af 82, BUN/Creatinine Ratio 26.3 H, Glucose 68 L, Calcium 8.9, Phosphorus 3.5, Total Bilirubin 0.38, AST 18, ALT 13, Alkaline Phosphatase 73, Total Protein 6.0, Albumin 3.2 L, Globulin 2.8, Albumin/Globulin Ratio 1.1, TSH 1.790 05/22/25 06:22: Urine Color Yellow, Urine Clarity Sl Cldy, Urine pH 5.0, Ur Specific [place] 1.015, Urine Protein 30 H, Urine Glucose (UA) Normal, Urine Ketones Negative, Urine Occult Blood 250 H, Urine Nitrite Negative, Urine Bilirubin Negative, Urine Urobilinogen Normal, Ur Leukocyte Esterase 100 H, Urine RBC 25-50 SEEN, Urine WBC 5-10 SEEN, Ur Squamous Epith Cells 0-5 SEEN, Urine Bacteria 0 SEEN, Urine Mucus 0 SEEN Physical Exam Narrative Seen and examined. Patient is stated that he has aches nonspecific but probably in the left side of mid abdomen though is not sure. He denies any abdominal pain. He had nausea and vomiting Mainly to the solid food. He has a PEG tube. Physical General: Alert, Oriented x3, Cooperative, bedbound for 10 months. HEENT: Atraumatic, PERRLA, EOMI, Normocephalic. Oral: No Gingival or Mucosal Lesions/ Ulcerations Neck: Supple, No JVD, Negative Carotid Bruits Chest wall/Lungs: Air entry diminished in bilateral lung bases. No crepitation/rhonchi Cardiovascular: Sinus arrhythmia, Normal S1,S2, No M/G/R Abdomen: Bowel Sounds Present, Soft, deep tenderness on LUQ. PEG tube present Non-Distended : No dysuria. Mild tenderness on left renal angle. No suprapubic tenderness. Extremities: No edema, Capillary Refill Less than 3 Seconds Skin: Surgical scar over right thigh for infection Musculoskeletal: No Tenderness to Palpation of Joints or Extremities. Bilateral paraplegia, ROM restricted with mild contracture Neurological: Cranial nerves II-XII grossly intact, DTR 2+/4. No acute focal neurological deficit. Psych/Mental Status: Flight of Assessment & Plan Assessment/Plan (1) Ureteral calculus, left: (2) Acute cystitis with hematuria: (3) Nausea & vomiting: QUALIFIERS: Vomiting type: bilious vomiting Qualified Code(s): R11.14 - Bilious vomiting (4) Abdominal pain: QUALIFIERS: Abdominal location: generalized Qualified Code(s): R10.84 - Generalized abdominal pain (5) Abnormal CT scan: PLAN: Plan 74-year-old gentleman was admitted directly from [facility] for nausea, vomiting and generalized abdominal discomfort. On CT abdomen left large UPJ stone was found and Dr. Bullard to separate the patient. He was treated empirically with IV ceftriaxone 1. Abdominal discomfort/aches due to large stone at the Left UPJ calculus, CT evidence pancreatic stranding features- Admit to PCU. Urology consulted. Pain control. UA shows done here on 05/22 reported LE 100, nitrite negative, WBC 5-7, bacteria 0. RBC 25-50 cells. Urine culture pending Recent CT scan at [facility] that revealed mild stranding adjacent to the head of the pancreas and mild wall thickening of the adjacent duodenum with findings concerning for mild pancreatitis, low-attenuation lesion in the head of the pancreas measuring 0.9 x 1.0 x 0.8 cm. Stone layering in the GB measuring 0.4 x 0.7 cm. Additional small punctate stones in GB neck measuring 0.3 cm. Bilateral renal cyst on the right measuring 5.4 x 5.3 cm in the left 2.5 x 2.3 cm. Multiple bilateral nonobstructing renal calculi. Left UPJ calculus measuring 0.9 x 0.8 x 0.6 cm. Surrounding ureteral wall thickening and stranding. No hydronephrosis. No retroperitoneal mass or adenopathy. Liver chemistries in normal limit, TB 0.5 transaminases normal, alkaline phosphatase normal. Lipase was not ordered therefore ordered. Lipase 184. K3.2. Patient does not have elevated hematocrit or other features suggestive of pancreatitis. Therefore clinically I do not think patient has pancreatitis. MRCP was done today and shows small cyst subcentimeter, 0.9 cm in the anterior right more than the pancreatic head and another 0.3 cm in the tail of pancreas. Trace amount of fluid adjacent to 2nd and 3rd portion of duodenum. Bilateral renal cyst. Discussed with Dr. Osei and he thinks it simple cyst. Does not have features of pancreatitis. Biliary system unremarkable, normal-appearing MRCP. Pancreatic biliary dilatation CBD pancreatic duct normal in appearance. Liver unremarkable. 5. 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 Hoskins from orthopedic surgery with patient declining potentially curative AKA: Continue current antibiotic regimen to prevent flare. 6. Chronic left upper extremity weakness and bilateral foot drop with inability to dorsiflex previously worked up at [facility] with recent revealing age indeterminant T11 and T12 wedge compression fractures with T12 fracture demonstrating retropulsion to the posterior vertebral body cortex approximately ~0.5 cm - Noted. 7. Asthma/Interstitial Lung Disease; on mycophenolate mofetil 3g BID, prednisone 20 mg daily, montelukast and budesonide twice daily - Hold mycophenolate with active UTI. Restart when okay with urology. Otherwise maintain home regimen. 8. Paroxysmal atrial fibrillation; on amiodarone and apixaban - Hold apixaban with urologic procedure pending in AM. Continue amiodarone as previous. Twelve-lead EKG shows NSR with sinus arrhythmia 75 bpm, LAFB. 9. Large thyroid nodule recommended dedicated thyroid ultrasound for further characterization - Noted with patient to be instructed to follow-up with PCP or endocrinology as outpatient. 10. History of PEG tube placement for protein calorie malnutrition in setting of chronic infection - Hold PEG tube feedings until urologic procedure completed and then restart. 11. Essential hypertension; on metoprolol - Continue metoprolol as previous plus give as needed IV hydralazine for systolic blood pressure greater than 160 mmHg. 12. Osteoporosis; on denosumab - Restart denosumab as outpatient. DVT prophylaxis - SCD's only with impending urologic procedure in a.m. Charges/Coding Visit Charges Inpatient E&M: 94127 Subs Hosp L2
--- NOTE | 2025-05-22 07:37 | PCM.CONS.U ---
HPI Consult Data Date of Consult: 05/22/25 HPI Narrative Reason for Consultation: left UPJ stone HPI Narrative: YARON BUTLER, is a 74 M who presents to [facility] as a transfer from [facility] he has a stone in the left UPJ area has been having nausea vomiting abdominal pain has a lot of medical problems multiple comorbidities unclear if really this stone is really causing his problem but nevertheless we will take him to surgery tomorrow for cystoscopy and left stent placement to alleviate the obstruction will plan to treat the stone at this point since it is infected and then we will plan for elective treatment for the stone later on he does have a lot of other nonobstructing stones in both kidneys we will leave these alone so put him on the schedule for tomorrow for cystoscopy and left stent placement. [facility] Medical History Thyroid cyst Allergic rhinitis Major depressive disorder BPH (benign prostatic hyperplasia) Low back pain Disorder of zinc metabolism GERD (gastroesophageal reflux disease) Osteoporosis Adult failure to thrive Right bundle branch block Hypertension Atrial fibrillation Dysphagia, oropharyngeal Abscess of right lower extremity Personal history of immunosupression therapy Orthostatic hypotension PAF (paroxysmal atrial fibrillation) Steroid dependence Neuropathic pain Antisynthetase syndrome History of shingles Ambulatory dysfunction Shingles Abscess of left thigh BOOP (bronchiolitis obliterans with organizing pneumonia) Wears glasses High cholesterol Easy bruising Back pain Injury of head and neck Blackout Gastric reflux Non-smoker On home oxygen therapy Hoarseness Chronic cough History of echocardiogram Hypertension History of stress test Cardiology follow-up encounter History of atrial fibrillation Atrial fibrillation COVID-19 Osteoporosis Kidney stones Atrial fibrillation RBBB (right bundle branch block) Antisynthetase syndrome Essential hypertension Mixed hyperlipidemia Asthma Interstitial lung disease GERD (gastroesophageal reflux disease) Fatty liver BPH (benign prostatic hyperplasia) Lung nodule Vasovagal syncope Abnormal cardiac CT angiography Home Medications ?Medication ?Instructions ?Recorded ?Last Taken ?Type cyanocobalamin (vitamin B-12) 500 500 mcg PO DAILY vitamin 07/14/21 05/20/25 History mcg tablet denosumab 60 mg/mL subcutaneous 60 mg subcut [id number] low calcuim 07/14/21 Unknown History syringe (Prolia) pantoprazole 40 mg tablet,delayed 40 mg PO DAILY reflux 07/14/21 05/21/25 09:00 History release budesonide 0.5 mg/2 mL suspension 0.5 mg inhalation BID sob 01/01/22 05/21/25 09:00 History for nebulization (Pulmicort) cholecalciferol (vitamin D3) 75 150 mcg PO DAILY vitamin 01/01/22 08/30/24 History mcg (3,000 unit) tablet lactobacillus combination no.9 4 4,000 mmu cells PO DAILY supplement 01/01/22 05/21/25 09:00 History billion cell capsule (Adult 50 Plus Probiotic) montelukast 10 mg tablet 10 mg PO DAILY allergies 05/12/23 05/21/25 History (Singulair) mycophenolate mofetil 500 mg tablet 3,000 mg PO BID AUTOIMMUNE DISEASE 05/12/23 Unknown History Held on 09/22/24. Instructions: Held because of abscess left thigh. sulfamethoxazole 800 1 tab PO .MWF ATB #1 TAB 08/30/24 05/20/25 09:00 Rx mg-trimethoprim 160 mg tablet 1 TAB (Bactrim DS) L.acidophil,salivari-Bifido 1 cap PO DAILYCM #1 cap 09/22/24 05/21/25 09:00 Rx bifidum-Strep thermoph 175 mg 1 cap capsule acetaminophen 325 mg tablet 650 mg (2 x 325 mg) PO Q6H PRN PRN 09/22/24 Unknown Rx Pain Score 1-10 #1 TAB amiodarone 200 mg tablet 200 mg PO DAILY #1 TAB 09/22/24 Unknown Rx apixaban 5 mg tablet (Eliquis) 5 mg PO BID #1 TAB 09/22/24 05/21/25 09:00 Rx 5 mg azithromycin 250 mg tablet 500 mg (2 x 250 mg) PO QHS #1 TAB 09/22/24 05/21/25 09:00 Rx 500 mg food supplemt, lactose-reduced 120 ml PO TIDCM #1 mL 09/22/24 Unknown Rx 0.08 gram-1.5 kcal/mL oral liquid (Ensure Plus High Protein) metoprolol succinate 25 mg 25 mg PO DAILY #1 TAB 09/22/24 05/21/25 09:00 Rx tablet,extended release 24 hr ondansetron 4 mg disintegrating 4 mg PO Q8H PRN PRN 09/22/24 05/20/25 22:00 Rx tablet Nausea/Vomiting #1 TAB 4 mg zinc sulfate 50 mg zinc (220 mg) 50 mg PO DAILY #1 cap 09/22/24 Unknown Rx capsule ascorbic acid (vitamin C) 500 mg 500 mg PO QHS 10/10/24 05/20/25 History capsule ethambutol 400 mg tablet 400 mg PO DAILY 10/10/24 05/21/25 09:00 History 400 mg rifabutin 150 mg capsule 150 mg PO DAILY 10/10/24 Unknown History prednisone 10 mg tablet 20 mg PO DAILYCM 05/21/25 05/21/25 History Allergy/AdvReac Type Severity Reaction Status Date / Time monosodium glutamate Allergy Abd Verified 10/10/24 18:08 cramps/diarrhea Penicillins (PCN) Allergy Rash Verified 10/10/24 18:08 allopurinol AdvReac Unknown cough Verified 10/10/24 18:08 morphine AdvReac Other Verified 10/10/24 18:08 tamsulosin (From Flomax) AdvReac Other Verified 10/10/24 18:08 Family History Grandfather CVA (cerebral vascular accident) Grandmother Congestive heart failure Grandmother Cardiac pacemaker in situ Mother Heart disease Hypertension Father Heart disease Cardiac arrhythmia Surgical History History of incision and drainage Hx of cystoscopy History of umbilical hernia repair History of inguinal hernia repair Social History household members: spouse Smoking Status: Never smoker alcohol intake: current details: Rare substance use type: does not use caffeine: Yes Type: coffee Number of servings: 1 Lab / Micro Data 05/22/25 04:45 05/22/25 04:45 Labs: Laboratory Results - last 24 hr 05/21/25 23:56: WBC 13.8 H, RBC 3.65 L, Hgb 9.8 L, Hct 33.5 L, MCV 91.8, MCH 26.8 L, MCHC 29.3 L, RDW Std Deviation 61.1 H, RDW Coeff of Opal 18.4 H, Plt Count 339, MPV 10.2, Sodium 139, Potassium 4.7, Chloride 107, Carbon Dioxide 22.3, Anion Gap 10, BUN 27 H, Creatinine 0.99, Estim Creat Clear Calc 69.64, Est GFR (MDRD) Non-Af 81, BUN/Creatinine Ratio 27.2 H, Glucose 84, Calcium 8.9, Magnesium 2.1, Total Bilirubin 0.33, AST 18, ALT 13, Alkaline Phosphatase 74, Total Protein 6.3, Albumin 3.3 L, Globulin 3.1, Albumin/Globulin Ratio 1.1, Vitamin B12 848, Serum Folate 36.50 H 05/22/25 04:45: WBC 11.7 H, RBC 3.51 L, Hgb 9.6 L, Hct 33.1 L, MCV 94.3 H, MCH 27.4, MCHC 29.0 L, RDW Std Deviation 62.0 H, RDW Coeff of Opal 18.4 H, Plt Count 330, MPV 10.4, Immature Gran % (Auto) 0.300, Neut % (Auto) 83.0 H, Lymph % (Auto) 4.1 L, [place] % (Auto) 8.6, Eos % (Auto) 3.5, Baso % (Auto) 0.5, Absolute Neuts (auto) 9.7 H, Absolute Lymphs (auto) 0.48 L, Nucleated RBC % 0, Sodium 141, Potassium 4.4, Chloride 109 H, Carbon Dioxide 21.0, Anion Gap 12, BUN 26 H, Creatinine 0.98, Estim Creat Clear Calc 70.35, Est GFR (MDRD) Non-Af 82, BUN/Creatinine Ratio 26.3 H, Glucose 68 L, Calcium 8.9, Phosphorus 3.5, Total Bilirubin 0.38, AST 18, ALT 13, Alkaline Phosphatase 73, Total Protein 6.0, Albumin 3.2 L, Globulin 2.8, Albumin/Globulin Ratio 1.1, TSH 1.790 05/22/25 06:22: Urine Color Yellow, Urine Clarity Sl Cldy, Urine pH 5.0, Ur Specific [place] 1.015, Urine Protein 30 H, Urine Glucose (UA) Normal, Urine Ketones Negative, Urine Occult Blood 250 H, Urine Nitrite Negative, Urine Bilirubin Negative, Urine Urobilinogen Normal, Ur Leukocyte Esterase 100 H, Urine RBC 25-50 SEEN, Urine WBC 5-10 SEEN, Ur Squamous Epith Cells 0-5 SEEN, Urine Bacteria 0 SEEN, Urine Mucus 0 SEEN
[2025-05-22 08:58] LABS: Lipase 184 U/L (13-75)
--- NOTE | 2025-05-22 09:10 | MRI_ITS ---
PROCEDURE: MRCP ABDOMEN WITHOUT CONTRAST 05/22/2025 REASON FOR EXAM: ABNORMAL CT SUGGESTING PANCREATITIS AND DUODENITIS TECHNIQUE: MRCP ABDOMEN WITHOUT CONTRAST Multiplanar and multisequence images were obtained. CONTRAST: None COMPARISON: October 10, 2024 CT FINDINGS: Liver: Unremarkable Biliary: Unremarkable. Normal-appearing MRCP. There is no intrahepatic biliary dilation. The common bile duct and pancreatic duct are normal in appearance. Pancreas: There is a 0.9 cm cyst at the anterior right margin of the pancreatic head, axial image 33/40. There is a 0.3 cm cyst in the tail of the pancreas, image 23/40. There is a trace amount of fluid adjacent to the 2nd and 3rd portion of the duodenum. Spleen: Unremarkable Adrenals: Unremarkable Kidneys: There is a 5 cm cyst at the lower pole of the right kidney. There are multiple left renal cysts with the largest measuring 2 cm at the upper pole. Peritoneum / Retroperitoneum: Unremarkable Lymph Nodes: There is no pathologic adenopathy by size criteria. Major Vessels: Unremarkable Bones: Unremarkable MRI/MRCP Abdomen without Contrast IMPRESSION: Bilateral renal cysts. There is a 0.9 cm cyst at the anterior right margin of the pancreatic head, axi al image 33/40. There is a 0.3 cm cyst in the tail of the pancreas, image 23/40. There is a trace amount of fluid adjacent to the 2nd and 3rd portion of the duodenum. Correlate with pancreatic enzymes. Reading [facility]
[2025-05-22] MEDS: Metoprolol(XL)Succ 25 MG Tablet PO (11:28)
--- NOTE | 2025-05-22 11:38 | CASEMGMT ---
SW met with patient. Introduced self and role at [facility]. Patient confirms his plan is to return to [facility] when ready. Sandhya Carlton MSW DHAVAL
--- NOTE | 2025-05-22 13:40 | CASEMGMT ---
Discharge Planning Updates sent to [facility]. Charis Pittman DC Planning Asst.
[2025-05-22] MEDS: Jevity 1.5 1,000 ML 60 ML GT (17:22)
[2025-05-22] MEDS: MELATONIN 3 MG TABLET GT (22:46)
[2025-05-23] VITALS (13 sets, daily range): BP systolic 104–131; BP diastolic 55–80; PULSE 78–92; RESP 16–18; TEMP 36.1–37.1; O2SAT 2–99; BMI 22.9; BMI 22.8
[2025-05-23 06:06] LABS: Hematocrit 32.0 % (40-54); Hemoglobin 9.4 g/dL (13.0-16.5); Immature Granulocytes Count 0.040 X10^3/uL (0.0-0.0); Mean Corp Hgb Conc 29.4 g/dL (32-36); Mean Corpuscular Volume 93.0 fL (80-94); Mean Platelet Vol. 10.4 fl (6.2-12.0); NRBC Flagged by Analyzer 0 % (0-5); POSITIVE DIFFERENTIAL YES; Platelet Count 333 K/mm3 (150-450); RBC Distribution Width CV 18.1 % (11.6-14.6); RBC Distribution Width SD 60.6 fl (35.1-43.9); Red Blood Count 3.44 M/mm3 (4.6-6.2); White Blood Count 9.4 K/mm3 (4.4-11.0)
[2025-05-23 06:15] LABS: AST(SGOT) 26 U/L (<=37); Alanine Aminotransfer ALT/SGPT 12 U/L (<=46); Albumin, Serum 3.1 g/dL (3.4-4.8); Alkaline Phosphatase 76 U/L (40-129); Anion Gap 10 (5-15); BUN 25 mg/dL (4-19); BUN/Creat Ratio 25.4 RATIO (10-20); Calcium,Total 9.0 mg/dL (7.6-11.0); Carbon Dioxide 23.3 mmol/L (21.0-32.0); Chloride 107 mmol/L (98-108); Estimated Creatinine Clearance 70.69 ml/min (50-250); Globulin 2.8 g/dL (2.2-4.2); Glucose 78 mg/dL (70-99); Potassium 4.5 mmol/L (3.3-5.1)
[2025-05-23] MEDS: 0.9% Saline Lock 10 ML Syringe IV (09:40)
--- NOTE | 2025-05-23 12:45 | PCM.CONS.GEN ---
Assessment & Plan Assessment/Plan (1) Acute UTI: PLAN: Unclear the that history of mycobacteria [place]ii, in reviewing his previous culture information from this institution I cannot find this particular isolate any previous cultures. Reasonable to continue Bactrim for pneumocystis prophylaxis. On ceftriaxone as we await further microbiology data from this admission. Will discontinue azithromycin. 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 No documented fevers. Currently on nasal cannula O2 which she has been on for the past month. No hemoptysis. No pleuritic chest pain. No recent chest film or CT of the chest done on this admission. Has been on Bactrim every Wednesday for pneumocystis prophylaxis. Currently also on azithromycin plus ceftriaxone. Urine culture data pending. No skin lesions or rashes. [facility] Medical History Thyroid cyst Allergic rhinitis Major depressive disorder BPH (benign prostatic hyperplasia) Low back pain Disorder of zinc metabolism GERD (gastroesophageal reflux disease) Osteoporosis Adult failure to thrive Right bundle branch block Hypertension Atrial fibrillation Dysphagia, oropharyngeal Abscess of right lower extremity Personal history of immunosupression therapy Orthostatic hypotension PAF (paroxysmal atrial fibrillation) Steroid dependence Neuropathic pain Antisynthetase syndrome History of shingles Ambulatory dysfunction Shingles Abscess of left thigh BOOP (bronchiolitis obliterans with organizing pneumonia) Wears glasses High cholesterol Easy bruising Back pain Injury of head and neck Blackout Gastric reflux Non-smoker On home oxygen therapy Hoarseness Chronic cough History of echocardiogram Hypertension History of stress test Cardiology follow-up encounter History of atrial fibrillation Atrial fibrillation COVID-19 Osteoporosis Kidney stones Atrial fibrillation RBBB (right bundle branch block) Antisynthetase syndrome Essential hypertension Mixed hyperlipidemia Asthma Interstitial lung disease GERD (gastroesophageal reflux disease) Fatty liver BPH (benign prostatic hyperplasia) Lung nodule Vasovagal syncope Abnormal cardiac CT angiography Home Medications ?Medication ?Instructions ?Recorded ?Last Taken ?Type denosumab 60 mg/mL subcutaneous 60 mg subcut [id number] low calcuim 07/14/21 Unknown History syringe (Prolia) pantoprazole 40 mg tablet,delayed 40 mg PO DAILY reflux 07/14/21 05/21/25 09:00 History release budesonide 0.5 mg/2 mL suspension 0.5 mg inhalation BID sob 01/01/22 05/21/25 09:00 History for nebulization (Pulmicort) lactobacillus combination no.9 4 4,000 mmu cells PO DAILY supplement 01/01/22 05/21/25 09:00 History billion cell capsule (Adult 50 Plus Probiotic) montelukast 10 mg tablet 10 mg PO DAILY allergies 05/12/23 05/21/25 History (Singulair) mycophenolate mofetil 500 mg tablet 3,000 mg PO BID AUTOIMMUNE DISEASE 05/12/23 Unknown History Held on 09/22/24. Instructions: Held because of abscess left thigh. acetaminophen 325 mg tablet 650 mg (2 x 325 mg) PO Q6H PRN PRN 09/22/24 Unknown Rx Pain Score 1-10 #1 TAB apixaban 5 mg tablet (Eliquis) 5 mg PO BID #1 TAB 09/22/24 05/21/25 09:00 Rx 5 mg ascorbic acid (vitamin C) 500 mg 500 mg PO QHS 10/10/24 05/20/25 History capsule ethambutol 400 mg tablet 400 mg PO DAILY 10/10/24 05/21/25 09:00 History 400 mg rifabutin 150 mg capsule 300 mg PO DAILY osteomyelitis 10/10/24 Unknown History prednisone 10 mg tablet 20 mg PO DAILYCM 05/21/25 05/21/25 History aluminum-mag hydroxide-simethicone 30 ml PO Q6H PRN indigestion 05/23/25 Unknown History 200 mg-200 mg-20 mg/5 mL oral susp azithromycin 250 mg tablet 250 mg PO QHS R thigh infect 05/23/25 05/21/25 09:00 History 500 mg cholecalciferol (vitamin D3) 25 25 mcg PO DAILY supplement 05/23/25 Unknown History mcg (1,000 unit) tablet (Vitamin D3) ferrous sulfate 300 mg (60 mg 325 mg feeding tube DAILY 05/23/25 Unknown History iron)/5 mL oral liquid supplemetn folic acid 1 mg tablet 1 mg PO DAILY supplement 05/23/25 Unknown History ipratropium 0.5 mg-albuterol 3 mg 3 ml inhalation Q4H PRN pneumonuia 05/23/25 Unknown History (2.5 mg base)/3 mL nebulization soln metoprolol tartrate 25 mg tablet 25 mg PO BID bp 05/23/25 Unknown History mometasone 220 mcg/actuation(60 1 inh inhalation BID sob 05/23/25 Unknown History doses) breath activated powder inhaler (Asmanex Twisthaler) nystatin 100,000 unit/gram topical 1 applic topical DAILY yeast 05/23/25 Unknown History powder ondansetron 4 mg disintegrating 4 mg PO Q6H PRN Nausea/Vomiting 05/23/25 05/20/25 22:00 History tablet 4 mg sertraline 50 mg tablet 50 mg PO DAILY depression 05/23/25 Unknown History sulfamethoxazole 800 1 tab PO MOWEFR ATB 05/23/25 05/20/25 09:00 History mg-trimethoprim 160 mg tablet 1 TAB (Bactrim DS) Allergy/AdvReac Type Severity Reaction Status Date / Time monosodium glutamate Allergy Abd Verified 10/10/24 18:08 cramps/diarrhea Penicillins (PCN) Allergy Rash Verified 10/10/24 18:08 allopurinol AdvReac Unknown cough Verified 10/10/24 18:08 morphine AdvReac Other Verified 10/10/24 18:08 tamsulosin (From Flomax) AdvReac Other Verified 10/10/24 18:08 Family History Grandfather CVA (cerebral vascular accident) Grandmother Congestive heart failure Grandmother Cardiac pacemaker in situ Mother Heart disease Hypertension Father Heart disease Cardiac arrhythmia Surgical History History of incision and drainage Hx of cystoscopy History of umbilical hernia repair History of inguinal hernia repair Social History household members: spouse Smoking Status: Never smoker alcohol intake: current details: Rare substance use type: does not use caffeine: Yes Type: coffee Number of servings: 1 ROS ROS Narrative As stated in history of present illness others negative Physical Exam Narrative Alert and responsive chronically ill-appearing man lungs appear clear heart exam S1-S2 abdomen soft nontender PEG tube in place. External urinary catheter device in place Lab / Micro Data 05/23/25 05:08 05/23/25 05:08 Labs: Laboratory Results - last 24 hr 05/23/25 05:08: WBC 9.4, RBC 3.44 L, Hgb 9.4 L, Hct 32.0 L, MCV 93.0, MCH 27.3, MCHC 29.4 L, RDW Std Deviation 60.6 H, RDW Coeff of Opal 18.1 H, Plt Count 333, MPV 10.4, Immature Gran % (Auto) 0.400, Neut % (Auto) 77.8 H, Lymph % (Auto) 4.5 L, [place] % (Auto) 9.0, Eos % (Auto) 7.8 H, Baso % (Auto) 0.5, Absolute Neuts (auto) 7.3, Absolute Lymphs (auto) 0.42 L, Nucleated RBC % 0, Sodium 140, Potassium 4.5, Chloride 107, Carbon Dioxide 23.3, Anion Gap 10, BUN 25 H, Creatinine 0.97, Estim Creat Clear Calc 70.69, Est GFR (MDRD) Non-Af 83, BUN/Creatinine Ratio 25.4 H, Glucose 78, Calcium 9.0, Phosphorus 4.0, Total Bilirubin 0.30, AST 26, ALT 12, Alkaline Phosphatase 76, Total Protein 5.9, Albumin 3.1 L, Globulin 2.8, Albumin/Globulin Ratio 1.1
--- NOTE | 2025-05-23 13:40 | PN.HOSP_ITS ---
Reason for Visit Reason for Visit: Diagnoses Calculus of ureter (05/21/25) Acute cystitis with hematuria (05/21/25) Urinary tract infection, site not specified (05/21/25) Generalized abdominal pain (05/21/25) Bilious vomiting (05/21/25) Abnormal findings on diagnostic imaging of other specified body structures (05/21/25) Objective Data Objective Data Vital Signs: Vital Signs Temp Pulse Resp BP Pulse Ox O2 Del Method O2 Flow Rate 98.6 F 85 16 106/57 L 95 Nasal Cannula 2 05/23/25 09:05 05/23/25 09:05 05/23/25 09:05 05/23/25 09:05 05/23/25 09:05 05/23/25 09:05 05/23/25 10:28 Oxygen Flow Rate (L/min) 2 Oxygen Delivery Method Nasal Cannula Weight: 160 lb 0.889 oz Body Mass Index (BMI) 22.8 Intake & Output: Intake and Output for Last 24 Hours 05/21/25 05/22/25 05/23/25 23:59 23:59 23:59 Intake Total 1800 / 1800 453 / 453 Output Total 300 / 300 1550 / 1550 500 / 500 Balance -300 / -300 250 / 250 -47 / -47 Lab / Micro Data 05/23/25 05:08 05/23/25 05:08 Labs: Laboratory Results - last 24 hr 05/23/25 05:08: WBC 9.4, RBC 3.44 L, Hgb 9.4 L, Hct 32.0 L, MCV 93.0, MCH 27.3, MCHC 29.4 L, RDW Std Deviation 60.6 H, RDW Coeff of Opal 18.1 H, Plt Count 333, MPV 10.4, Immature Gran % (Auto) 0.400, Neut % (Auto) 77.8 H, Lymph % (Auto) 4.5 L, Bollinger % (Auto) 9.0, Eos % (Auto) 7.8 H, Baso % (Auto) 0.5, Absolute Neuts (auto) 7.3, Absolute Lymphs (auto) 0.42 L, Nucleated RBC % 0, Sodium 140, Potassium 4.5, Chloride 107, Carbon Dioxide 23.3, Anion Gap 10, BUN 25 H, Creatinine 0.97, Estim Creat Clear Calc 70.69, Est GFR (MDRD) Non-Af 83, B UN/Creatinine Ratio 25.4 H, Glucose 78, Calcium 9.0, Phosphorus 4.0, Total Bilirubin 0.30, AST 26, ALT 12, Alkaline Phosphatase 76, Total Protein 5.9, A lbumin 3.1 L, Globulin 2.8, Albumin/Globulin Ratio 1.1 Physical Exam Narrative Seen and examined. Discussed with the patient's today. There is contradiction between and as said that he is allowed all oral and PEG tube's for extra calories/nutritional support but said he is not allowed by mouth. Plan for cystoscopy Patient is stated that he has aches nonspecific but probably in the left side of mid abdomen though is not sure. He denies any abdominal pain. He had nausea and vomiting Mainly to the solid food. He has a PEG tube. Physical General: Alert, Oriented x3, Cooperative, bedbound for 10 months. HEENT: Atraumatic, PERRLA, EOMI, Normocephalic. Oral: No Gingival or Mucosal Lesions/ Ulcerations Neck: Supple, No JVD, Negative Carotid Bruits Chest wall/Lungs: Air entry diminished in bilateral lung bases. No crepitation/rhonchi Cardiovascular: Sinus arrhythmia, Normal S1,S2, No M/G/R Abdomen: Bowel Sounds Present, Soft, deep tenderness on LUQ. PEG tube present Non-Distended : No dysuria. Mild to minimal tenderness on left renal angle. No suprapubic tenderness. Extremities: No edema, Capillary Refill Less than 3 Seconds Skin: Surgical scar over right thigh for infection Musculoskeletal: No Tenderness to Palpation of Joints or Extremities. Bilateral paraplegia, ROM restricted with mild contracture Neurological: Cranial nerves II-XII grossly intact, DTR 2+/4. No acute focal neurological deficit. Psych/Mental Status: Flat affect Assessment & Plan Assessment/Plan (1) Ureteral calculus, left: (2) Acute cystitis with hematuria: (3) Nausea & vomiting: QUALIFIERS: Vomiting type: bilious vomiting Qualified Code(s): R 11.14 - Bilious vomiting (4) Abdominal pain: QUALIFIERS: Abdominal location: generalized Qualified Code(s): R 10.84 - Generalized abdominal pain (5) Abnormal CT scan: PLAN: Plan 74-year-old gentleman was admitted directly from [facility] for nausea, vomiting and generalized abdominal discomfort. On CT abdomen left large UPJ stone was found and Dr. Bullard to separate the patient. He was treated empirically with IV ceftriaxone 1. Abdominal discomfort/aches due to large stone at the Left UPJ calculus, CT evidence pancreatic stranding features- Admit to PCU. Urology consulted. Pain control. UA shows done here on 05/22 reported LE 100, nitrite negative, WBC 5-7, bacteria 0. RBC 25-50 cells. Urine culture pending Recent CT scan at [facility] that revealed mild stranding adjacent to the head of the pancreas and mild wall thickening of the adjacent duodenum with findings concerning for mild pancreatitis, low-attenuation lesion in the head of the pancreas measuring 0.9 x 1.0 x 0.8 cm. Stone layering in the GB measuring 0.4 x 0.7 cm. Additional small punctate stones in GB neck measuring 0.3 cm. Bilateral renal cyst on the right measuring 5.4 x 5.3 cm in the left 2.5 x 2.3 cm. Multiple bilateral nonobstructing renal calculi. Left UPJ calculus measuring 0.9 x 0.8 x 0.6 cm. Surrounding ureteral wall thickening and stranding. No hydronephrosis. No retroperitoneal mass or adenopathy. Liver chemistries in normal limit, TB 0.5 transaminases normal, alkaline phosphatase normal. Lipase was not ordered therefore ordered. Lipase 184. K3.2. Patient does not have elevated hematocrit or other features suggestive of pancreatitis. Therefore clinically I do not think patient has pancreatitis. MRCP was done today and shows small cyst subcentimeter, 0.9 cm in the anterior right more than the pancreatic head and another 0.3 cm in the tail of pancreas. Trace amount of fluid adjacent to 2nd and 3rd portion of duodenum. Bilateral renal cyst. Discussed with Dr. Osei and he thinks it simple cyst. Does not have features of pancreatitis. Biliary system unremarkable, normal-appearing MRCP. Pancreatic biliary dilatation CBD pancreatic duct normal in appearance. Liver unremarkable. 05/23: Plan for cystoscopy and left ureteric stent. 5. 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 Hoskins from orthopedic surgery with patient declining potentially curative AKA: Continue current antibiotic regimen to prevent flare. 05/23: ID consult reviewed and appreciated. Encouraged to Mycobacterium kansasii. Not able to find particular isolate of this bacteria on previous cultures. Reasonable to continue Bactrim for pneumocystis prophylaxis. On ceftriaxone. 6. Chronic left upper extremity weakness and bilateral foot drop with inability to dorsiflex previously worked up at [facility] with recent revealing age indeterminant T11 and T12 wedge compression fractures with T12 fracture demonstrating retropulsion to the posterior vertebral body cortex approximately ~0.5 cm - Noted. 7. Asthma/Interstitial Lung Disease; on mycophenolate mofetil 3g BID, prednisone 20 mg daily, montelukast and budesonide twice daily - Hold mycophenolate with active UTI. Restart when okay with urology. Otherwise maintain home regimen. 8. Paroxysmal atrial fibrillation; on amiodarone and apixaban - Hold apixaban with urologic procedure pending in AM. Continue amiodarone as previous. Twelve-lead EKG shows NSR with sinus arrhythmia 75 bpm, LAFB. 9. Large thyroid nodule recommended dedicated thyroid ultrasound for further characterization - Noted with patient to be instructed to follow-up with PCP or endocrinology as outpatient. 10. History of PEG tube placement for protein calorie malnutrition in setting of chronic infection - Hold PEG tube feedings until urologic procedure completed and then restart. 11. Essential hypertension; on metoprolol - Continue metoprolol as previous plus give as needed IV hydralazine for systolic blood pressure greater than 160 mmHg. 12. Osteoporosis; on denosumab - Restart denosumab as outpatient. DVT prophylaxis - SCD's only with impending urologic procedure in a.m. Charges/Coding Visit Charges Inpatient E&M: 67956 Subs Hosp L2
--- NOTE | 2025-05-23 14:16 | PRE.ANES_ITS ---
ASA Classification* ASA Classification ASA Classification: 3 and E Assessment & Plan Anesthesia* Anesthesia Assessment Anesthesia Assessment: Discussed sedation and/or anesthesia options, risks, benefits, and alternatives with patient/parents/legal guardian/POA. Questions invited. The patient/parents/legal guardian/POA seems to understand and agrees to proceed with anesthesia plan. Reviewed the physical assessment, medical history, allergy history and patient home medications list prior to surgery/procedure/anesthetic and documented any changes. Performed airway and anesthesia risk assessments. Anesthesia Type Anesthesia Type: MAC History Source History Obtained from:: Patient and Chart Anesthesia Focused Assessment* Temperature: 98.6 F Pulse Rate: 85 Blood Pressure: 106/57 Respiratory Rate: 16 Pulse Ox: 95 Oxygen Delivery Method: Nasal Cannula Oxygen Flow Rate (L/min): 2 Airway Assessment Mouth opens: >3 cm Mallampati Score: III Teeth Condition: Caps/Crowns (Patient has several crowns. They are all tight.) and Implants (Patient has an implant. It is tight.) Neck Range of motion (ROM): Limited ROM (Somewhat Decreased) Labs Anesthesia Preop lab: CBC WBC 9.4 K/mm3 (4.4-11.0) 05/23/25 05:08 05/23/25 RBC 3.44 M/mm3 (4.6-6.2) L 05/23/25 05:08 05/23/25 Hgb 9.4 g/dL (13.0-16.5) L 05/23/25 05:08 05/23/25 Hct 32.0 % (40-54) L 05/23/25 05:08 05/23/25 Plt Count 333 K/mm3 (150-450) 05/23/25 05:08 05/23/25 CHEMISTRY Potassium 4.5 mmol/L (3.3-5.1) 05/23/25 05:08 05/23/25 Sodium 140 mmol/L (133-145) 05/23/25 05:08 05/23/25 Magnesium 2.1 mg/dL (1.5-2.2) 05/21/25 23:56 05/21/25 Phosphorus 4.0 mg/dL (2.7-4.5) 05/23/25 05:08 05/23/25 BUN 25 mg/dL (4-19) H 05/23/25 05:08 05/23/25 Creatinine 0.97 mg/dL (0.70-1.20) 05/23/25 05:08 05/23/25 Glucose 78 mg/dL (70-99) 05/23/25 05:08 05/23/25 TSH 1.790 uIU/mL (0.300-4.200) 05/22/25 04:45 07/12/16 COAG PT 20.4 SECONDS (11.7-14.9) H 10/10/24 18:20 09/22 08/15 Pre-Assessment Diagnosis/Proposed Procedure Planned Operative Procedure(s): Cystoscopy, stent insertion. 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 When Was Last Pacemaker Check QUESTION #4 FULL TEXT: You/Your Family Experience fever (hyperthermia) with Anesthesia Last Oral Intake Last Oral intake: Last Oral Intake NPO since 00:01 05/23/25 09:05 Meds taken in AM with sips of No 05/23/25 09:05 water? Meds patient instructed to take am of surgery PONV PONV - truck manager: PONV - truck manager Female HX of Motion Sickness HX of N/V After Surgery Non-Smoker Duration of Surgery greater than 60 minutes Number of Risk Factors PONV Score Height & Weight Height & Weight: Anesthesia: Height & Weight Height 5 ft 10.08 in 05/23/25 09:05 Weight: 72.6 kg 05/23/25 09:05 Body Mass Index (BMI) 22.8 05/23/25 09:05 Respiratory Assessment Respiratory Assessment - truck manager: Respiratory Tract Infection Hx - truck manager Hx Respiratory Tract Infection Yes 05/22/25 00:24 STOP Sleep Apnea STOP Sleep Apnea - truck manager: STOP Sleep Apnea - truck manager Hx Hypertension No 05/22/25 14:01 Hx Sleep Apnea No 05/21/25 21:43 CPAP No 08/28/24 22:22 BIPAP Do you snore loudly (louder No 05/21/25 21:43 than talking or can be heard Do you often feel tired/ Yes 05/21/25 21:43 fatigued/ sleepy during daytime? Has anyone observed you stop No 05/21/25 21:43 breathing during sleep? STOP Results Negative 05/21/25 21:43 QUESTION #5 FULL TEXT : Do you snore loudly (louder than talking or can be heard through closed doors)? 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 Specify any problems Hx of Preganancy in last 3 N/A 05/21/25 21:43 Months Nurse Filling Out Transfusion DCORPORAL 05/21/25 21:43 & Questions: Date: 05/21/25 05/21/25 21:43 Time: 21:47 05/21/25 21:43 Patient unable to answer at this time (ie. confused, unrespo /Reproduction History /Reproductive History - truck manager: /Reproductive Hx- truck manager Hx Now No 05/22/25 00:24 Gestational Age (in weeks): EDC: Hx Hx Para Hx Section SAB No 05/22/25 00:24 Active Medications Active Medications: Current Medications Generic Name Dose Route Start Last Admin Trade Name Freq PRN Reason Stop Dose Admin Acetaminophen 650 mg 05/22/25 01:52 Acetaminophen 325 Mg Tablet GT Q6H PRN PRN Pain Score 1-5/10 or fever. Al Hydroxide/Mg Hydroxide 30 ml 05/22/25 01:54 Mag Hydrox/Al Hydrox/Simeth 30 Ml Udc GT Q6H PRN PRN Gastric Burning Albuterol Sulfate 2.5 mg 05/21/25 23:35 Albuterol 2.5 Mg/3 Ml Vial.Neb. INHALATION Q2H PRN PRN SOB &/OR WHEEZING Amiodarone HCl 200 mg 05/22/25 10:00 05/22/25 11:28 Amiodarone 200 Mg Tablet GT 200 mg DAILY MICA Administration Ascorbic Acid 500 mg 05/22/25 22:00 05/22/25 22:07 Ascorbic Acid 500 Mg Tablet GT 500 mg QHS MICA Administration Budesonide 0.5 mg 05/22/25 10:00 Budesonide Respules 0.5 Mg/2 Ml Ampul.Neb. INHALATION BID.RT MICA Cholecalciferol 125 mcg 05/22/25 10:00 05/23/25 10:09 Cholecalciferol (Vit D3) 125 Mcg Capsule (5,000 Units) GT Not Given DAILY MICA Cholecalciferol 25 mcg 05/22/25 10:00 05/23/25 10:10 Cholecalciferol (Vit D3) 25 Mcg Tablet (1,000 Units) GT Not Given DAILY MICA Cyanocobalamin 500 mcg 05/22/25 10:00 05/23/25 10:09 Cyanocobalamin 500 Mcg Tablet GT Not Given DAILY MICA Hydromorphone HCl 0.5 mg 05/21/25 23:35 Hydromorphone 0.5 Mg/0.5 Ml Syringe IV Q4H PRN PRN Pain Score 6-10 Sodium Chloride 250 mls @ 15 mls/hr 05/21/25 22:10 IV .[id number] PRN Saline Flush Sodium Chloride 250 mls @ 15 mls/hr 05/21/25 22:10 IV .[id number] PRN Additional IVPB Infusion Ceftriaxone Sodium 1 gm in 50 mls @ 100 mls/hr 05/22/25 10:00 05/23/25 10:27 Rocephin IV Infused Q24 MICA Infusion Sodium Chloride 1,000 mls @ 15 mls/hr 05/23/25 13:40 IV .Q48H MICA Lansoprazole 30 mg 05/22/25 10:00 05/23/25 10:09 Lansoprazole 15 Mg Capsule. GT Not Given DAILY MICA Magnesium Hydroxide 30 ml 05/22/25 01:54 Magnesium Hydroxide 30 Ml Udc GT DAILY PRN PRN Constipation Melatonin 3 mg 05/22/25 01:54 05/22/25 22:46 Melatonin 3 Mg Tablet GT 3 mg QHS PRN PRN Administration INSOMNIA Metoprolol Succinate 25 mg 05/22/25 10:00 05/22/25 11:28 Metoprolol(Xl)Succ 25 Mg Tablet PO 25 mg DAILY [facility] Administration Protocol Montelukast Sodium 10 mg 05/22/25 10:00 05/23/25 10:09 Montelukast 10 Mg Tablet GT Not Given DAILY MICA Ondansetron HCl 4 mg 05/22/25 01:55 05/22/25 23:52 Ondansetron Odt 4 Mg Tablet GT 4 mg Q8H PRN PRN Administration Nausea/Vomiting Prednisone 20 mg 05/22/25 08:00 05/23/25 07:45 Prednisone 20 Mg Tablet [facility] Promethazine HCl 25 mg 05/21/25 23:35 Promethazine 25 Mg/Ml Syringe IM Q6H PRN PRN Breakthrough Nausea/Vomiting Sodium Chloride 10 - 40 ml 05/21/25 22:10 05/23/25 09:40 0.9% Saline Lock 10 Ml Syringe IV 10 ml UD PRN Administration SALINE FLUSH Trimethoprim/Sulfamethoxazole 1 tablet 05/23/25 08:00 05/23/25 07:45 Smz/Tmp Ds Tablet GT Not Given [id number] [facility] Zinc Sulfate 50 mg 05/22/25 10:00 05/23/25 10:10 Zinc Sulfate 50 Mg Zinc (220 Mg) Oral Capsule GT Not Given DAILY [facility] PFSH Medical History Thyroid cyst Allergic rhinitis Major depressive disorder BPH (benign prostatic hyperplasia) Low back pain Disorder of zinc metabolism GERD (gastroesophageal reflux disease) Osteoporosis Adult failure to thrive Right bundle branch block Hypertension Atrial fibrillation Dysphagia, oropharyngeal Abscess of right lower extremity Personal history of immunosupression therapy Orthostatic hypotension PAF (paroxysmal atrial fibrillation) Steroid dependence Neuropathic pain Antisynthetase syndrome History of shingles Ambulatory dysfunction Shingles Abscess of left thigh BOOP (bronchiolitis obliterans with organizing pneumonia) Wears glasses High cholesterol Easy bruising Back pain Injury of head and neck Blackout Gastric reflux Non-smoker On home oxygen therapy Hoarseness Chronic cough History of echocardiogram Hypertension History of stress test Cardiology follow-up encounter History of atrial fibrillation Atrial fibrillation COVID-19 Osteoporosis Kidney stones Atrial fibrillation RBBB (right bundle branch block) Antisynthetase syndrome Essential hypertension Mixed hyperlipidemia Asthma Interstitial lung disease GERD (gastroesophageal reflux disease) Fatty liver BPH (benign prostatic hyperplasia) Lung nodule Vasovagal syncope Abnormal cardiac CT angiography Home Medications ?Medication ?Instructions ?Recorded ?Last Taken ?Type denosumab 60 mg/mL subcutaneous 60 mg subcut [id number] low calcuim 07/14/21 Unknown History syringe (Prolia) pantoprazole 40 mg tablet,delayed 40 mg PO DAILY reflu x 07/14/21 05/21/25 09:00 History release budesonide 0.5 mg/2 mL suspension 0.5 mg inhalation BI D sob 01/01/22 05/21/25 09:00 History for nebulization (Pulmicort) lactobacillus combination no.9 4 4,000 mmu cells PO DA ROBERT supplement 01/01/22 05/21/25 09:00 History billion cell capsule (Adult 50 Plus Probiotic) montelukast 10 mg tablet 10 mg PO DAILY allergies 05/21/25 History (Singulair) mycophenolate mofetil 500 mg tablet 3,000 mg PO BID AU TOIMMUNE DISEASE 05/12/23 Unknown History Held on 09/22/24. Instructions: Held because of abscess left thigh. acetaminophen 325 mg tablet 650 mg (2 x 325 mg) PO Q6H PRN PRN 09/22/24 Unknown Rx Pain Score 1-10 #1 TAB apixaban 5 mg tablet (Eliquis) 5 mg PO BID #1 TAB 11/0 12/1505/21/25 09:00 Rx 5 mg ascorbic acid (vitamin C) 500 mg 500 mg PO QHS 4 05/20/25 History capsule ethambutol 400 mg tablet 400 mg PO DAILY 10/10/24 09:00 History 400 mg rifabutin 150 mg capsule 300 mg PO DAILY osteomyeliti s 10/10/24 Unknown History prednisone 10 mg tablet 20 mg PO DAILYCM 05/21/25 History aluminum-mag hydroxide-simethicone 30 ml PO Q6H PRN in digestion 05/23/25 Unknown History 200 mg-200 mg-20 mg/5 mL oral susp azithromycin 250 mg tablet 250 mg PO QHS R thigh infec t 05/23/25 05/21/25 09:00 History 500 mg cholecalciferol (vitamin D3) 25 25 mcg PO DAILY supple ment 05/23/25 Unknown History mcg (1,000 unit) tablet (Vitamin D3) ferrous sulfate 300 mg (60 mg 325 mg feeding tube CALLIE Y 05/23/25 Unknown History iron)/5 mL oral liquid supplemetn folic acid 1 mg tablet 1 mg PO DAILY supplement 01/16 Unknown History ipratropium 0.5 mg-albuterol 3 mg 3 ml inhalation Q4H PRN pneumonuia 05/23/25 Unknown History (2.5 mg base)/3 mL nebulization soln metoprolol tartrate 25 mg tablet 25 mg PO BID bp 05/23 Unknown History mometasone 220 mcg/actuation(60 1 inh inhalation BID s ob 05/23/25 Unknown History doses) breath activated powder inhaler (Asmanex Twisthaler) nystatin 100,000 unit/gram topical 1 applic topical DA ROBERT yeast 05/23/25 Unknown History powder ondansetron 4 mg disintegrating 4 mg PO Q6H PRN Nausea /Vomiting 05/23/25 05/20/25 22:00 History tablet 4 mg sertraline 50 mg tablet 50 mg PO DAILY depression Unknown History sulfamethoxazole 800 1 tab PO MOWEFR ATB 05/23/25 05/20/25 09:00 History mg-trimethoprim 160 mg tablet 1 TAB (Bactrim DS) Allergy/AdvReac Type Severity Reaction Status Date / Time monosodium glutamate Allergy Abd Verified 10/10/24 18:08 cramps/diarrhea Penicillins (PCN) Allergy Rash Verified 10/10/24 18:08 allopurinol AdvReac Unknown cough Verified 10/10/24 18:08 morphine AdvReac Other Verified 10/10/24 18:08 tamsulosin (From Flomax) AdvReac Other Verified 10/10/24 18:08 Family History Grandfather CVA (cerebral vascular accident) Grandmother Congestive heart failure Grandmother Cardiac pacemaker in situ Mother Heart disease Hypertension Father Heart disease Cardiac arrhythmia Surgical History History of incision and drainage Hx of cystoscopy History of umbilical hernia repair History of inguinal hernia repair Social History household members: spouse Smoking Status: Never smoker alcohol intake: current details: Rare substance use type: does not use caffeine: Yes Type: coffee Number of servings: 1 Review of Systems (Anesthesia) ROS Narrative System reviewed and no additional complaints, except as documented.
--- NOTE | 2025-05-23 14:54 | DCINST_ITS ---
Discharge Instructions Diet Discharge Diet: No restrictions DC O2, CPAP, BIPAP needs Home O2 Discharge instructions: No Dressing / Incision Discharge Activity: Return to Normal Activity and May Not Drive (while taking narcotic pain medications.) Follow Up Care Please Follow Up With: Devon Bullard MD When: Call [phone] for an appointment Test Results: Test results from this visit will be discussed in further detail at your follow- up appointment, if applicable. Discharge Plan Admission Admit Date/Time: 05/21/25 23:02 Attending Provider: Jluis Botello Primary Care Provider: Tanya Pettit Consulting Providers: Devon Bullard; Mo Joel; Chuckie Alicia Discharge Orders/Prescriptions Prescriptions: No Action pantoprazole 40 mg tablet,delayed release (DR/EC) 40 mg PO DAILY Prolia 60 mg/mL syringe 60 mg subcut [id number] Adult 50 Plus Probiotic 4 billion cell capsule 4,000 mmu cells PO DAILY Rx Instructions: administer with a meal budesonide [Pulmicort] 0.5 mg/2 mL suspension for nebulization 0.5 mg inhalation BID mycophenolate mofetil 500 mg tablet 3,000 mg PO BID montelukast [Singulair] 10 mg tablet 10 mg PO DAILY prednisone 10 mg Tablet 20 mg PO DAILYCM cholecalciferol (vitamin D3) [Vitamin D3] 25 mcg (1,000 unit) tablet 25 mcg PO DAILY metoprolol tartrate 25 mg tablet 25 mg PO BID Asmanex Twisthaler 220 mcg/ actuation (60) aerosol powdr breath activated 1 inh inhalation BID sertraline 50 mg tablet 50 mg PO DAILY alum-mag hydroxide-simeth 200-200-20 mg/5 mL suspension 30 ml PO Q6H PRN (Reason: indigestion) nystatin 100,000 unit/gram powder 1 applic topical DAILY ipratropium-albuterol 0.5 mg-3 mg(2.5 mg base)/3 mL solution for nebulization 3 ml inhalation Q4H PRN Patient Comments: [NO ORIGINAL SIG] ferrous sulfate 300 mg (60 mg iron)/5 mL liquid 325 mg feeding tube DAILY folic acid 1 mg tablet 1 mg PO DAILY azithromycin 250 mg Tablet 250 mg PO QHS sulfamethoxazole-trimethoprim [Bactrim DS] 800-160 mg tablet 1 tab PO MOWEFR Rx Instructions: take every MWF ondansetron 4 mg Tablet,Disintegrating 4 mg PO Q6H PRN (Reason: Nausea/Vomiting) acetaminophen 325 mg Tablet 650 mg PO Q6H PRN PRN (Reason: Pain Score 1-10) Qty: 1 0RF Eliquis 5 mg Tablet 5 mg PO BID Qty: 1 0RF Rx Instructions: LAST DOSE 09/22/24 AT 10 AM. ON HOLD FOR ANTICIPATED SURGERY ascorbic acid (vitamin C) 500 mg capsule 500 mg PO QHS ethambutol 400 mg tablet 400 mg PO DAILY rifabutin 150 mg capsule 300 mg PO DAILY Referrals / Follow Up: Wilver,Tanya, [Primary Care Provider] -
--- NOTE | 2025-05-23 15:09 | PCM.OPRPT ---
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 Type of Anesthesia: General RN Documented Start/Stop Times: Operation Date: 05/23/25 14:35 Case Time Into Pre-Op 05/23/25 13:38 Out of Pre-Op 05/23/25 14:43 Anesthesia Start 05/23/25 14:47 Into Room 05/23/25 14:47 Procedure Start 05/23/25 15:04 Procedure End 05/23/25 15:07 Procedure Start Time: 14:47 Procedure Stop Time: 15:10 Select all DRAINS/GRAFTS/IMPLANTS that apply: Drains Drain details: left stent Estimated Blood Loss: None Specimen collected: No Description of surgery: This is a 74-year-old male who has a lot of comorbidities and significant medical problems and chronic infections he has been seen at outside hospital was found to have an obstructing stone in the proximal left ureter consult was obtained and he was transferred since no urology coverage was at the other hospital he was admitted by the medical service to manage his chronic medical problems I going to place a stent today on the left side to unblock his left kidney and we will get him set up later on to treat the kidney stone on the left side of note also on cystoscopy today was found to have bladder stones what the treat is at some point as well. Patient was taken back to the operating room after induction of anesthesia he was placed in dorsolithotomy position very carefully since both his legs are in very weak condition from prior surgery after this was done then penis and testicles were prepped and draped in usual sterile fashion went in the bladder with a 21 Macedonian rigid cystourethroscope he does have his enlarged prostate with large median lobe and a high riding bladder neck once inside the bladder then I cannulated the left ureteral orifice with the wire and advanced a wire up into the kidney under fluoroscopy I could see the stone in the left renal pelvis and then put the wire up in the left kidney and then over the wire I placed a left stent once the stent was in good position pulled the wire and the stent coiled in the kidney bladder but good position also of note when I was in the bladder I found a fairly large bladder stones. At this point none of the stones were treated but the bring him back to do shockwave lithotripsy of the kidney stones and then with the bring him back to treat the bladder stones at a separate setting. Surgical Findings: Large bladder stones in the bladder, also has obstructing left proximal ureteral calculus stent placed on the left side Complications Complications: No Admit VTE Documentation VTE Present on Admission: No VTE Mechan Device Prophylaxis: SCD's VTE Pharm Prophylaxis ordered?: No
--- NOTE | 2025-05-23 15:21 | PCM.POST.ANE ---
Anesthesia: Postop Eval I Current Vital Signs Temperature: 98.7 F Pulse Rate: 92 Blood Pressure: 108/65 Respiratory Rate: 16 Pulse Ox: 98 Oxygen Delivery Method: Nasal Cannula Oxygen Flow Rate (L/min): 2 Assessment Airway patent: Yes Spontaneous unlabored respirations: Yes Mental status: Awake and Calm nausea: No Vomiting: No Anesthesia Complication: No Fluid Hydration Crystalloid volume administer (ml): 400 Total IV fluid infused: 400 Progress Note Anesthesia document: Postop Eval 1 completed: Yes
--- NOTE | 2025-05-23 18:56 | CASEMGMT ---
Social Work Noted in admission questions the patient has advance directives and was asked to bring in. Followed up with by phone today, as patient was sleeping soundly when SW presented to room. agrees to bring directives in at next visit. stated the patient only has a POAHC and has declined to complete at [facility]. Supportive listening and emotional support provided to the this date, who shared about patient's declining health and journey through the various facilities. reports things patient is in a SNF in [place] as the patient's sister is the fabrication machine operator there, adn other fmaily live in that area including the patient's 92 year old parents. Plan: Return to [facility]. Skilled versus Intermediate LOC. -JAREK Mario
[2025-05-23] MEDS: Jevity 1.5 1,000 ML 60 ML GT (20:48)
--- NOTE | 2025-05-23 21:11 | POSTOPAN2_ITS ---
Anesthesia Postop Eval I Sum Postop Eval Completion status Anesthesia document: Postop Eval 1 completed: Yes Anesthesia Postop Eval I Summary Anesthesia Postop Eval I Summary: Anesthesia Postop Eval I: Assessment Summary Airway patent Yes 05/23/25 15:22 SUGAR CANE [email or web address] Spontaneous unlabored Yes 05/23/25 15:22 SUGAR CANE PLANTER.SHOF respirations Mental status Awake,Calm 05/23/25 15:22 SUGAR CANE PLANTER.SHOF nausea No 05/23/25 15:22 SUGAR CANE PLANTER.SHOF Vomiting No 05/23/25 15:22 SUGAR CANE PLANTER.SHOF Anesthesia Postop Eval I: Fluid Summary Crystalloid volume administer 400 05/23/25 15:22 SUGAR CANE PLANTER.SHOF (ml) Colloids volume administered ( ml) Blood Product volume administered (ml) Total IV fluid infused 400 05/23/25 15:22 SUGAR CANE PLANTER.SHOF Anesthesia Postop Eval I: Summary Notes Anesthesia Complication No 05/23/25 15:22 SUGAR CANE PLANTER.SHOF Anesthesia Complication Comment: Post-operative progress note Anesthesia: Postop Eval II Evaluation Mental status: Awake and Calm Pain Level: 1 nausea: No Vomiting: No Complications Anesthesia Complication: No
--- NOTE | 2025-05-23 21:11 | PCM.POSTANE2 ---
Anesthesia Postop Eval I Sum Postop Eval Completion status Anesthesia document: Postop Eval 1 completed: Yes Anesthesia Postop Eval I Summary Anesthesia Postop Eval I Summary: Anesthesia Postop Eval I: Assessment Summary Airway patent Yes 05/23/25 15:22 TABLE [email or web address].SHOF Spontaneous unlabored Yes 05/23/25 15:22 TABLE [email or web address].SHOF respirations Mental status Awake,Calm 05/23/25 15:22 TABLE TENDER.SHOF nausea No 05/23/25 15:22 TABLE TENDER.SHOF Vomiting No 05/23/25 15:22 TABLE TENDER.SHOF Anesthesia Postop Eval I: Fluid Summary Crystalloid volume administer 400 05/23/25 15:22 TABLE TENDER.SHOF (ml) Colloids volume administered ( ml) Blood Product volume administered (ml) Total IV fluid infused 400 05/23/25 15:22 TABLE TENDER.SHOF Anesthesia Postop Eval I: Summary Notes Anesthesia Complication No 05/23/25 15:22 TABLE TENDER.SHOF Anesthesia Complication Comment: Post-operative progress note Anesthesia: Postop Eval II Evaluation Mental status: Awake and Calm Pain Level: 1 nausea: No Vomiting: No Complications Anesthesia Complication: No
[2025-05-23] MEDS: APIXABAN 5 MG TABLET GT (21:13)
[2025-05-24 03:00] VITALS: BP 95/60; PULSE 72; RESP 18; TEMP 36.1; O2SAT 99
[2025-05-24 05:09] VITALS: BMI 24.4
[2025-05-24 05:47] LABS: Hematocrit 32.7 % (40-54); Hemoglobin 9.6 g/dL (13.0-16.5); Immature Granulocytes Count 0.050 X10^3/uL (0.0-0.0); Mean Corp Hgb Conc 29.4 g/dL (32-36); Mean Corpuscular Volume 92.9 fL (80-94); Mean Platelet Vol. 10.1 fl (6.2-12.0); NRBC Flagged by Analyzer 0.2 % (0-5); POSITIVE DIFFERENTIAL YES; Platelet Count 358 K/mm3 (150-450); RBC Distribution Width CV 18.3 % (11.6-14.6); RBC Distribution Width SD 61.6 fl (35.1-43.9); Red Blood Count 3.52 M/mm3 (4.6-6.2); White Blood Count 8.1 K/mm3 (4.4-11.0)
[2025-05-24 06:53] LABS: AST(SGOT) 22 U/L (<=37); Alanine Aminotransfer ALT/SGPT 14 U/L (<=46); Albumin, Serum 3.1 g/dL (3.4-4.8); Alkaline Phosphatase 79 U/L (40-129); Anion Gap 10 (5-15); BUN 19 mg/dL (4-19); BUN/Creat Ratio 20.7 RATIO (10-20); Calcium,Total 9.4 mg/dL (7.6-11.0); Carbon Dioxide 24.9 mmol/L (21.0-32.0); Chloride 105 mmol/L (98-108); Estimated Creatinine Clearance 74.94 ml/min (50-250); Globulin 2.9 g/dL (2.2-4.2); Glucose 126 mg/dL (70-99); Potassium 4.2 mmol/L (3.3-5.1)
--- NOTE | 2025-05-24 07:13 | PCM.CONS.B ---
Consult Date of Consult: 05/24/25 Reason for Consult s/p stent placement on the left needs to follow up in my office to get set up for left ESWL also has bladder stones that need to be removed as well in the future. pt told to follow up in office
[2025-05-24 07:55] VITALS: O2SAT 7
--- NOTE | 2025-05-24 08:43 | PCM.TXEXTCAR ---
Diet Diet Order/Speech Therapy: INPATIENT Hospital Diet / Speech Therapy Order(s) 05/23/25 18:42 Diet: Regular - General Food consistency:: Regular Liquid Consistency:: Regular/Thin Diet Comments: meat cut up, lemon ice with meals DC O2, CPAP, BIPAP needs Home O2 Discharge instructions: No Problem/Diagnosis (1) Ureteral calculus, left: Status: Acute Code(s): N20.1 - Calculus of ureter (2) Acute cystitis with hematuria: Status: Acute Code(s): N30.01 - Acute cystitis with hematuria (3) Nausea & vomiting: Status: Acute Code(s): R11.2 - Nausea with vomiting, unspecified (4) Abdominal pain: Status: Acute Code(s): R10.9 - Unspecified abdominal pain (5) Abnormal CT scan: Status: Acute Code(s): R93.89 - Abnormal findings on diagnostic imaging of other specified body structures Plan 74-year-old gentleman was admitted directly from [facility] for nausea, vomiting and generalized abdominal discomfort. On CT abdomen left large UPJ stone was found and Dr. Bullard to separate the patient. He was treated empirically with IV ceftriaxone 1. Abdominal discomfort/aches due to large stone at the Left UPJ calculus, CT evidence pancreatic stranding features- Admit to PCU. Urology consulted. Pain control. UA shows done here on 05/22 reported LE 100, nitrite negative, WBC 5-7, bacteria 0. RBC 25-50 cells. Urine culture pending Recent CT scan at [facility] that revealed mild stranding adjacent to the head of the pancreas and mild wall thickening of the adjacent duodenum with findings concerning for mild pancreatitis, low-attenuation lesion in the head of the pancreas measuring 0.9 x 1.0 x 0.8 cm. Stone layering in the GB measuring 0.4 x 0.7 cm. Additional small punctate stones in GB neck measuring 0.3 cm. Bilateral renal cyst on the right measuring 5.4 x 5.3 cm in the left 2.5 x 2.3 cm. Multiple bilateral nonobstructing renal calculi. Left UPJ calculus measuring 0.9 x 0.8 x 0.6 cm. Surrounding ureteral wall thickening and stranding. No hydronephrosis. No retroperitoneal mass or adenopathy. Liver chemistries in normal limit, TB 0.5 transaminases normal, alkaline phosphatase normal. Lipase was not ordered therefore ordered. Lipase 184. K3.2. Patient does not have elevated hematocrit or other features suggestive of pancreatitis. Therefore clinically I do not think patient has pancreatitis. MRCP was done today and shows small cyst subcentimeter, 0.9 cm in the anterior right more than the pancreatic head and another 0.3 cm in the tail of pancreas. Trace amount of fluid adjacent to 2nd and 3rd portion of duodenum. Bilateral renal cyst. Discussed with Dr. Osei and he thinks it simple cyst. Does not have features of pancreatitis. Biliary system unremarkable, normal-appearing MRCP. Pancreatic biliary dilatation CBD pancreatic duct normal in appearance. Liver unremarkable. 7: Plan for cystoscopy and left ureteric stent. 5. 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 Hoskins from orthopedic surgery with patient declining potentially curative AKA: Continue current antibiotic regimen to prevent flare. 7: ID consult reviewed and appreciated. Encouraged to Mycobacterium kansasii. Not able to find particular isolate of this bacteria on previous cultures. Reasonable to continue Bactrim for pneumocystis prophylaxis. On ceftriaxone. 6. Chronic left upper extremity weakness and bilateral foot drop with inability to dorsiflex previously worked up at [facility] with recent revealing age indeterminant T11 and T12 wedge compression fractures with T12 fracture demonstrating retropulsion to the posterior vertebral body cortex approximately ~0.5 cm - Noted. 7. Asthma/Interstitial Lung Disease; on mycophenolate mofetil 3g BID, prednisone 20 mg daily, montelukast and budesonide twice daily - Hold mycophenolate with active UTI. Restart when okay with urology. Otherwise maintain home regimen. 8. Paroxysmal atrial fibrillation; on amiodarone and apixaban - Hold apixaban with urologic procedure pending in AM. Continue amiodarone as previous. Twelve-lead EKG shows NSR with sinus arrhythmia 75 bpm, LAFB. 9. Large thyroid nodule recommended dedicated thyroid ultrasound for further characterization - Noted with patient to be instructed to follow-up with PCP or endocrinology as outpatient. 10. History of PEG tube placement for protein calorie malnutrition in setting of chronic infection - Hold PEG tube feedings until urologic procedure completed and then restart. 11. Essential hypertension; on metoprolol - Continue metoprolol as previous plus give as needed IV hydralazine for systolic blood pressure greater than 160 mmHg. 12. Osteoporosis; on denosumab - Restart denosumab as outpatient. DVT prophylaxis - SCD's only with impending urologic procedure in a.m. Allergies/Procedures Done in Hospital Allergies monosodium glutamate Allergy (Verified 10/10/24 18:08) Abd cramps/diarrhea Penicillins (PCN) Allergy (Verified 10/10/24 18:08) Rash allopurinol Adverse Reaction (Unknown, Verified 10/10/24 18:08) cough morphine Adverse Reaction (Verified 10/10/24 18:08) Other tamsulosin (From Flomax) Adverse Reaction (Verified 10/10/24 18:08) Other Type of Care/Length of Stay Estimated LOS: More Than 30 Days Type of Care Needed: Intermediate Rehab Potential: Good Prognosis: Good Additional Orders/Day of Discharge Day of Discharge: 05/24/25 Dietary and Speech Recommendations Dietitian Recommendations/Changes: Will initiate enteral nutrition via PEG tube of Jevity 1.5 at 60mL/hr x 24 hour with 165 mL water flush q4 hours to meet estimated nutrition needs. Advance PO intakes as medically able. Follow Up Care Please Follow Up With: Devon Bullard MD Discharge Plan Admission Admit Date/Time: 05/21/25 23:02 Primary Reason for Your Visit: Left UPJ stone with obstruction Attending Provider: Jluis Botello Primary Care Provider: Tanya Pettit Consulting Providers: Devon Bullard; Mo Joel; Chuckie Alicia Discharge Orders/Prescriptions Prescriptions: New cephalexin 500 mg capsule 500 mg PO TID 5 Days Qty: 15 0RF Continued pantoprazole 40 mg tablet,delayed release (DR/EC) 40 mg PO DAILY Prolia 60 mg/mL syringe 60 mg subcut [id number] Adult 50 Plus Probiotic 4 billion cell capsule 4,000 mmu cells PO DAILY Rx Instructions: administer with a meal budesonide [Pulmicort] 0.5 mg/2 mL suspension for nebulization 0.5 mg inhalation BID mycophenolate mofetil 500 mg tablet 3,000 mg PO BID montelukast [Singulair] 10 mg tablet 10 mg PO DAILY prednisone 10 mg Tablet 20 mg PO DAILYCM cholecalciferol (vitamin D3) [Vitamin D3] 25 mcg (1,000 unit) tablet 25 mcg PO DAILY metoprolol tartrate 25 mg tablet 25 mg PO BID Asmanex Twisthaler 220 mcg/ actuation (60) aerosol powdr breath activated 1 inh inhalation BID sertraline 50 mg tablet 50 mg PO DAILY alum-mag hydroxide-simeth 200-200-20 mg/5 mL suspension 30 ml PO Q6H PRN (Reason: indigestion) nystatin 100,000 unit/gram powder 1 applic topical DAILY ipratropium-albuterol 0.5 mg-3 mg(2.5 mg base)/3 mL solution for nebulization 3 ml inhalation Q4H PRN Patient Comments: [NO ORIGINAL SIG] ferrous sulfate 300 mg (60 mg iron)/5 mL liquid 325 mg feeding tube DAILY folic acid 1 mg tablet 1 mg PO DAILY azithromycin 250 mg Tablet 250 mg PO QHS sulfamethoxazole-trimethoprim [Bactrim DS] 800-160 mg tablet 1 tab PO MOWEFR Rx Instructions: take every MWF ondansetron 4 mg Tablet,Disintegrating 4 mg PO Q6H PRN (Reason: Nausea/Vomiting) acetaminophen 325 mg Tablet 650 mg PO Q6H PRN PRN (Reason: Pain Score 1-10) Qty: 1 0RF Eliquis 5 mg Tablet 5 mg PO BID Qty: 1 0RF Rx Instructions: LAST DOSE 09/22/24 AT 10 AM. ON HOLD FOR ANTICIPATED SURGERY ascorbic acid (vitamin C) 500 mg capsule 500 mg PO QHS ethambutol 400 mg tablet 400 mg PO DAILY rifabutin 150 mg capsule 300 mg PO DAILY Referrals / Follow Up: Tanya Pettit DO [Primary Care Provider] - Devon Bullard MD [Med Staff - Active Staff] - Within 2 Weeks Chuckie Alicia MD [Med Staff - Active Staff] - Within 1 Month Disposition Disposition (needs filled in before D/C Order can be placed): NonSkilled NH/Intermed Care (3) Nausea & vomiting Qualifiers: Vomiting type: bilious vomiting Qualified Code(s): R11.14 - Bilious vomiting (4) Abdominal pain Qualifiers: Abdominal location: generalized Qualified Code(s): R10.84 - Generalized abdominal pain
[2025-05-24] MEDS: 0.9% Saline Lock 10 ML Syringe IV (08:58)
[2025-05-24 09:31] VITALS: BP 94/66; PULSE 95; RESP 18; TEMP 37.1; O2SAT 97
[2025-05-24] MEDS: Lactobacillis Acidophilus 1 CAP GT (09:37)
[2025-05-24] MEDS: APIXABAN 5 MG TABLET GT (09:38)
[2025-05-24] MEDS: Zinc Sulfate 50 mg zinc (220 mg) ORAL capsule GT (09:45)
[2025-05-24] MEDS: Cholecalciferol (VIT D3) 25 MCG TABLET (1,000 UNITS) GT (09:50)
[2025-05-24 10:08] VITALS: BP 94/66; PULSE 95
--- NOTE | 2025-05-24 10:48 | CASEMGMT ---
Social Work Pt is set up to leave at 11:30am, SW let pt know. Pt's was on the phone when SW entered the room, so let her know as well. SW inquired w/ if she brought in the POA papers, she states no, she did not, she has them in front of her on her desk. SW asked her to bring them in to [facility], and if pt ends up here in the hospital again, then we can get copies from them. thinks that [facility] may already have the POA papers. Pt leaving at 11:30am today, back to [facility], intermediate level of care. KALLI Pascual
--- NOTE | 2025-05-24 10:54 | DS.PCM_ITS ---
Providers Date of Admission: 05/21/25 Date of Discharge: 05/24/25 Primary Care Physician: Dr. Tanya Pettit, Consultations 05/21/25 23:35 Consult: Urology Routine Consulting Provider: Devon Bullard Reason for Consult: Large Left UPJ stone with n/v and abdominal pain. EMERGENT Consult: No MD Notified: Yes Date Notified: 05/21/25 Time Notified: 23:04 Method of Notification: ED Physician Initiated 05/23/25 08:38 Consult: Infectious Disease Routine Consulting Provider: Chuckie Alicia Reason for Consult: H/o M kansii, bactrim DS indication? EMERGENT Consult: No MD Notified: Yes Date Notified: 05/23/25 Time Notified: 08:38 Method of Notification: Text Reason For Visit: LARGE LEFT UPJ STONE WITH NAUSEA, VOMITING, AND Diagnosis Discharge Diagnosis (1) Ureteral calculus, left: Status: Acute Code(s): N20.1 - Calculus of ureter (2) Acute cystitis with hematuria: Status: Acute Code(s): N30.01 - Acute cystitis with hematuria (3) Nausea & vomiting: Status: Acute Code(s): R11.2 - Nausea with vomiting, unspecified Qualifiers: Vomiting type: bilious vomiting Qualified Code(s): R11.14 - Bilious vomiting (4) Abdominal pain: Status: Acute Code(s): R10.9 - Unspecified abdominal pain Qualifiers: Abdominal location: generalized Qualified Code(s): R10.84 - Generalized abdominal pain (5) Abnormal CT scan: Status: Acute Code(s): R93.89 - Abnormal findings on diagnostic imaging of other specified body structures Plan 74-year-old gentleman was admitted directly from [facility] for nausea, vomiting and generalized abdominal discomfort. On CT abdomen left large UPJ stone was found and Dr. Bullard to separate the patient. He was treated empirically with IV ceftriaxone 1. Abdominal discomfort/aches due to large stone at the Left UPJ calculus, CT evidence pancreatic stranding features- Admit to PCU. Urology consulted. Pain control. UA shows done here on 05/22 reported LE 100, nitrite negative, WBC 5-7, bacteria 0. RBC 25-50 cells. Urine culture pending Recent CT scan at [facility] that revealed mild stranding adjacent to the head of the pancreas and mild wall thickening of the adjacent duodenum with findings concerning for mild pancreatitis, low-attenuation lesion in the head of the pancreas measuring 0.9 x 1.0 x 0.8 cm. Stone layering in the GB measuring 0.4 x 0.7 cm. Additional small punctate stones in GB neck measuring 0.3 cm. Bilateral renal cyst on the right measuring 5.4 x 5.3 cm in the left 2.5 x 2.3 cm. Multiple bilateral nonobstructing renal calculi. Left UPJ calculus measuring 0.9 x 0.8 x 0.6 cm. Surrounding ureteral wall thickening and stranding. No hydronephrosis. No retroperitoneal mass or adenopathy. Liver chemistries in normal limit, TB 0.5 transaminases normal, alkaline phosphatase normal. Lipase was not ordered therefore ordered. Lipase 184. K3.2. Patient does not have elevated hematocrit or other features suggestive of pancreatitis. Therefore clinically I do not think patient has pancreatitis. MRCP was done today and shows small cyst subcentimeter, 0.9 cm in the anterior right more than the pancreatic head and another 0.3 cm in the tail of pancreas. Trace amount of fluid adjacent to 2nd and 3rd portion of duodenum. Bilateral renal cyst. Discussed with Dr. Osei and he thinks it simple cyst. Does not have features of pancreatitis. Biliary system unremarkable, normal-appearing MRCP. Pancreatic biliary dilatation CBD pancreatic duct normal in appearance. Liver unremarkable. 7: Plan for cystoscopy and left ureteric stent. 05/24: Patient had cystoscopy and left ureteric stent placement for obstructing left UPJ stone. Patient advised to follow with Dr. Bullard in 2 for left ESWL. Patient also had bladder stone that needs to be removed in the future.Urine cultures mixed gram-positive organism. Empirically discharged on Keflex 500 mg 3 times daily for 5 days as patient had cystoscopy and ureteric stent. 5. 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 Hoskins from orthopedic surgery with patient declining potentially curative AKA: Continue current antibiotic regimen to prevent flare. 7/2: ID consult reviewed and appreciated. Encouraged to Mycobacterium kansasii. Not able to find particular isolate of this bacteria on previous cultures. Reasonable to continue Bactrim for pneumocystis prophylaxis. On ceftriaxone. 05/24: Medications for Mycobacterium kansasii continued including azithromycin, rifabutin and ethambutol. Patient on Bactrim DS for pneumocystic prophylaxis 6. Chronic left upper extremity weakness and bilateral foot drop with inability to dorsiflex previously worked up at [facility] with recent revealing age indeterminant T11 and T12 wedge compression fractures with T12 fracture demonstrating retropulsion to the posterior vertebral body cortex approximately ~0.5 cm - Noted. 7. Asthma/Interstitial Lung Disease; on mycophenolate mofetil 3g BID, prednisone 20 mg daily, montelukast and budesonide twice daily - Hold mycophenolate with active UTI. Restart when okay with urology. Otherwise maintain home regimen. 8. Paroxysmal atrial fibrillation; on amiodarone and apixaban - Hold apixaban with urologic procedure pending in AM. Continue amiodarone as previous. Twelve-lead EKG shows NSR with sinus arrhythmia 75 bpm, LAFB. 9. Large thyroid nodule recommended dedicated thyroid ultrasound for further characterization - Noted with patient to be instructed to follow-up with PCP or endocrinology as outpatient. 10. History of PEG tube placement for protein calorie malnutrition in setting of chronic infection - Hold PEG tube feedings until urologic procedure completed and then restart. 11. Essential hypertension; on metoprolol - Continue metoprolol as previous plus give as needed IV hydralazine for systolic blood pressure greater than 160 mmHg. 12. Osteoporosis; on denosumab - Restart denosumab as outpatient. DVT prophylaxis - SCD's only with impending urologic procedure in a.m. Discharge medication reconciliation done. Discharge follow-up instructions completed. Discharge process discussed with the patient and all questions were answered to patient's satisfaction. Follow with PCP in 1 to 2 weeks Total time spent, exact 35 minutes on discharge meds reconciliation, examination, coordination of care with nurses and ancillary staff, review of imaging and blood test and discussion with the patient on follow-up instructions. Medications at Discharge Home Medications denosumab 60 mg/mL subcutaneous syringe (Prolia) 60 mg subcut [id number] low calcuim 07/14/21 pantoprazole 40 mg tablet,delayed release 40 mg PO DAILY reflux 07/14/21 budesonide 0.5 mg/2 mL suspension for nebulization (Pulmicort) 0.5 mg inhalation BID sob 01/01/22 lactobacillus combination no.9 4 billion cell capsule (Adult 50 Plus Probiotic) 4,000 mmu cells PO DAILY supplement 01/01/22 montelukast 10 mg tablet (Singulair) 10 mg PO DAILY allergies 05/12/23 mycophenolate mofetil 500 mg tablet 3,000 mg PO BID AUTOIMMUNE DISEASE 05/12/23 acetaminophen 325 mg tablet 650 mg (2 x 325 mg) PO Q6H PRN PRN Pain Score 1-10 #1 TAB 09/22/24 apixaban 5 mg tablet (Eliquis) 5 mg PO BID #1 TAB 09/22/24 ascorbic acid (vitamin C) 500 mg capsule 500 mg PO QHS 10/10/24 ethambutol 400 mg tablet 400 mg PO DAILY 10/10/24 rifabutin 150 mg capsule 300 mg PO DAILY osteomyelitis 10/10/24 prednisone 10 mg tablet 20 mg PO DAILYCM 05/21/25 aluminum-mag hydroxide-simethicone 200 mg-200 mg-20 mg/5 mL oral susp 30 ml PO Q6H PRN indigestion 05/23/25 azithromycin 250 mg tablet 250 mg PO QHS R thigh infect 05/23/25 cholecalciferol (vitamin D3) 25 mcg (1,000 unit) tablet (Vitamin D3) 25 mcg PO DAILY supplement 05/23/25 ferrous sulfate 300 mg (60 mg iron)/5 mL oral liquid 325 mg feeding tube DAILY supplemetn 05/23/25 folic acid 1 mg tablet 1 mg PO DAILY supplement 05/23/25 ipratropium 0.5 mg-albuterol 3 mg (2.5 mg base)/3 mL nebulization soln 3 ml inhalation Q4H PRN pneumonuia 05/23/25 metoprolol tartrate 25 mg tablet 25 mg PO BID bp 05/23/25 mometasone 220 mcg/actuation(60 doses) breath activated powder inhaler (Asmanex Twisthaler) 1 inh inhalation BID sob 05/23/25 nystatin 100,000 unit/gram topical powder 1 applic topical DAILY yeast 05/23/25 ondansetron 4 mg disintegrating tablet 4 mg PO Q6H PRN Nausea/Vomiting 05/23/25 sertraline 50 mg tablet 50 mg PO DAILY depression 05/23/25 sulfamethoxazole 800 mg-trimethoprim 160 mg tablet (Bactrim DS) 1 tab PO MOWEFR ATB 05/23/25 cephalexin 500 mg capsule 500 mg PO TID 5 days #15 caps 05/24/25 Physical Exam Narrative Seen and examined. Patient is doing well. tolerated oral feeding. 1. Tube feed Physical General: Alert, Oriented x3, Cooperative, bedbound for 10 months. HEENT: Atraumatic, PERRLA, EOMI, Normocephalic. Oral: No Gingival or Mucosal Lesions/ Ulcerations Neck: Supple, No JVD, Negative Carotid Bruits Chest wall/Lungs: Air entry diminished in bilateral lung bases. No crepitation/rhonchi Cardiovascular: Sinus arrhythmia, Normal S1,S2, No M/G/R Abdomen: Bowel Sounds Present, Soft, deep tenderness on LUQ. PEG tube present Non-Distended : No dysuria. Mild to minimal tenderness on left renal angle. No suprapubic tenderness. Extremities: No edema, Capillary Refill Less than 3 Seconds Skin: Surgical scar over right thigh for infection Musculoskeletal: No Tenderness to Palpation of Joints or Extremities. Bilateral paraplegia, ROM restricted with mild contracture Neurological: Cranial nerves II-XII grossly intact, DTR 2+/4. No acute focal neurological deficit. Psych/Mental Status: Flat affect Weight / BMI Weight Weight: 170 lb 13.732 oz Body Mass Index (BMI) 24.4 ABG / Lab / Microbiology Data 05/24/25 05:09 05/24/25 05:09 Laboratory: Laboratory Results - last 24 hr 05/24/25 05:09: WBC 8.1, RBC 3.52 L, Hgb 9.6 L, Hct 32.7 L, MCV 92.9, MCH 27.3, MCHC 29.4 L, RDW Std Deviation 61.6 H, RDW Coeff of Opal 18.3 H, Plt Count 358, MPV 10.1, Immature Gran % (Auto) 0.600, Neut % (Auto) 77.2 H, Lymph % (Auto) 4.2 L, [place] % (Auto) 9.9, Eos % (Auto) 7.6 H, Baso % (Auto) 0.5, Absolute Neuts (auto) 6.3, Absolute Lymphs (auto) 0.34 L, Nucleated RBC % 0.2, Sodium 140, Potassium 4.2, Chloride 105, Carbon Dioxide 24.9, Anion Gap 10, BUN 19, Creatinine 0.92, Estim Creat Clear Calc 74.94, Est GFR (MDRD) Non-Af 89, B UN/Creatinine Ratio 20.7 H, Glucose 126 H, Calcium 9.4, Total Bilirubin 0.25, AST 22, ALT 14, Alkaline Phosphatase 79, Total Protein 6.0, Albumin 3.1 L, Globulin 2.9, Albumin/Globulin Ratio 1.1 Microbiology: Microbiology 05/22/25 06:22 Urine, Random Urine Culture - Final Mixed Gram Positive Organisms D/C Instructions Discharge Diet: No restrictions DC O2, CPAP, BIPAP Needs Home O2 Discharge instructions: No Please Follow Up With: Devon Bullard MD When: Call [phone] for an appointment Meaningful Use Info Meaningful Use Meaningful Use Diagnoses (Choose all that apply): None applicable Ischemic Stroke Statin Dosing Therapy Reference: STATIN DOSE THERAPY REFERENCE: * Patients > 75 years receive moderate or high dose statin therapy. * Patients 75 years or YOUNGER should receive HIGH intensity statin dose unless contraindicated. You will be required to document reason for non-treatment if statin daily dose does not meet guidelines. HIGH DOSE STATIN THERAPY DAILY Atorvastatin > than or = to 40 mg Rosuvastatin > than or = to 20 mg Amlodipine + Atorvastatin > than or = to 2.5/40 mg Ezetimibe + Simvastatin 10/80 mg Simvastatin 80mg Discharge Plan Admission Admit Date/Time: 05/21/25 23:02 Primary Reason for Your Visit: Left UPJ stone with obstruction Attending Provider: Jluis Botello Primary Care Provider: Tanya Pettit Consulting Providers: Devon Bullard; Mo Joel; Chuckie Alicia Discharge Orders/Prescriptions Prescriptions: New cephalexin 500 mg capsule 500 mg PO TID 5 Days Qty: 15 0RF Continued pantoprazole 40 mg tablet,delayed release (DR/EC) 40 mg PO DAILY Prolia 60 mg/mL syringe 60 mg subcut [id number] Adult 50 Plus Probiotic 4 billion cell capsule 4,000 mmu cells PO DAILY Rx Instructions: administer with a meal budesonide [Pulmicort] 0.5 mg/2 mL suspension for nebulization 0.5 mg inhalation BID mycophenolate mofetil 500 mg tablet 3,000 mg PO BID montelukast [Singulair] 10 mg tablet 10 mg PO DAILY prednisone 10 mg Tablet 20 mg PO DAILYCM cholecalciferol (vitamin D3) [Vitamin D3] 25 mcg (1,000 unit) tablet 25 mcg PO DAILY metoprolol tartrate 25 mg tablet 25 mg PO BID Asmanex Twisthaler 220 mcg/ actuation (60) aerosol powdr breath activated 1 inh inhalation BID sertraline 50 mg tablet 50 mg PO DAILY alum-mag hydroxide-simeth 200-200-20 mg/5 mL suspension 30 ml PO Q6H PRN (Reason: indigestion) nystatin 100,000 unit/gram powder 1 applic topical DAILY ipratropium-albuterol 0.5 mg-3 mg(2.5 mg base)/3 mL solution for nebulization 3 ml inhalation Q4H PRN Patient Comments: [NO ORIGINAL SIG] ferrous sulfate 300 mg (60 mg iron)/5 mL liquid 325 mg feeding tube DAILY folic acid 1 mg tablet 1 mg PO DAILY azithromycin 250 mg Tablet 250 mg PO QHS sulfamethoxazole-trimethoprim [Bactrim DS] 800-160 mg tablet 1 tab PO MOWEFR Rx Instructions: take every MWF ondansetron 4 mg Tablet,Disintegrating 4 mg PO Q6H PRN (Reason: Nausea/Vomiting) acetaminophen 325 mg Tablet 650 mg PO Q6H PRN PRN (Reason: Pain Score 1-10) Qty: 1 0RF Eliquis 5 mg Tablet 5 mg PO BID Qty: 1 0RF Rx Instructions: LAST DOSE 09/22/24 AT 10 AM. ON HOLD FOR ANTICIPATED SURGERY ascorbic acid (vitamin C) 500 mg capsule 500 mg PO QHS ethambutol 400 mg tablet 400 mg PO DAILY rifabutin 150 mg capsule 300 mg PO DAILY Referrals / Follow Up: Tanya Pettit DO [Primary Care Provider] - Devon Bullard MD [Med Staff - Active Staff] - Within 2 Weeks Chuckie Alicia MD [Med Staff - Active Staff] - Within 1 Month Disposition Disposition (needs filled in before D/C Order can be placed): NonSkilled NH/Intermed Care Charges/Coding Addendum Addendum: ID was called for follow-up left message to call back Visit Charges Inpatient E&M: 31106 Disch Hosp >30min
--- NOTE | 2025-05-24 11:06 | CASEMGMT ---
Discharge Planning Discharge orders, signed med list, and transport time sent to [facility]. Physicians will transport pt by cot at 11:30p. Nursing and SW updated. SW updated both pt and his . Charis Pittman DC Planning Asst.
--- NOTE | 2025-05-24 11:46 | NURSING ---
Report called to [facility] to Talya Vu.
--- NOTE | 2025-05-24 13:28 | CASEMGMT ---
Social Work Physician changed the med list, pt has already left however. SW called [facility], spoke to the nurse on A Wing, Talya. SW let her know pt changed the med list and asked where we can fax it, she states to [phone]. SW faxed the updated med list. KALLI Pascual
== END 2025-05-24 12:40 | disposition intermediate care facility (04) | DRG 660 ==
PROVIDERS: Anesthesiology; Internal Medicine; Urology; Admitting Provider Hospitalist; PCP Internal Medicine; Referring Provider Hospitalist; Visit Provider Internal Medicine
PROC: 0T778DZ Dilation of Left Ureter with Intraluminal Device, Via Natural or Artificial Opening Endoscopic (ICD-10-PCS; CPT 52332; principal; 2025-05-23 14:25)
DX: N20.2 Calculus of kidney with calculus of ureter (principal); K86.2 Cyst of pancreas; J96.11 Chronic respiratory failure with hypoxia; A31.1 Cutaneous mycobacterial infection; L02.415 Cutaneous abscess of right lower limb; J84.9 Interstitial pulmonary disease, unspecified; N30.01 Acute cystitis with hematuria; Z99.81 Dependence on supplemental oxygen; I48.0 Paroxysmal atrial fibrillation; J45.909 Unspecified asthma, uncomplicated; I10 Essential (primary) hypertension; K76.0 Fatty (change of) liver, not elsewhere classified; E04.1 Nontoxic single thyroid nodule; Z93.1 Gastrostomy status; E78.2 Mixed hyperlipidemia; K80.20 Calculus of gallbladder without cholecystitis without obstruction; K21.9 Gastro-esophageal reflux disease without esophagitis; N28.1 Cyst of kidney, acquired; N21.0 Calculus in bladder; M81.0 Age-related osteoporosis without current pathological fracture; Z79.51 Long term (current) use of inhaled steroids
CPT/HCPCS: 36415; 74181; 76000; 80053; 81001; 82607; 82746; 83690; 83735; 84100; 84443; 85025; 85027; 87086; 87088; 92610; 93005; 97162; 97166; 97530; 97535; 97802; 97803; 99252; A4216; C1769; C2617; G0463

== ENCOUNTER 2025-06-13 12:02 | Day surgery (SDC) | payer MEDICARE, BC, SELFPAY ==
--- NOTE | 2025-06-11 14:16 | PAT.ANE_ITS ---
Pre-Assessment Diagnosis/Proposed Procedure Planned Operative Procedure(s): Cysto,Litholapaxy,Laser,Bladder Stones ESWL, STENT CHANGE Anesthesia History Anesthesia History - social research assistant: Anesthesia History - social research assistant Hx Hospitalization Yes: 05/23/25 KIDNEY STONES, 06/11/25 11:36 LEG INFECTIONS Any Problems With Anesthesia No 06/11/25 11:36 Cholinesterase deficiency No 06/11/25 11:36 You/Your Family Experience No 06/11/25 11:36 fever (hyperthermia) with Relationship Recent Exposure to Contagious No 06/04/25 13:39 Disease Does patient have nerve No 06/11/25 11:36 stimulator Patient instructed to have device shut off --Does patient have Pacemaker or ICD? When Was Last Pacemaker Check QUESTION #4 FULL TEXT: You/Your Family Experience fever (hyperthermia) with Anesthesia Last Oral Intake Last Oral intake: Last Oral Intake NPO since Meds taken in AM with sips of water? Meds patient instructed to take am of surgery PONV PONV - social research assistant: PONV - social research assistant Female No 06/11/25 11:36 HX of Motion Sickness No 06/11/25 11:36 HX of N/V After Surgery No 06/11/25 11:36 Non-Smoker Yes 06/11/25 11:36 Duration of Surgery greater No 06/11/25 11:36 than 60 minutes Number of Risk Factors 1 06/11/25 11:36 PONV Score Low Risk 06/11/25 11:36 Height & Weight Height & Weight: Anesthesia: Height & Weight Height 5 ft 10.08 in 06/04/25 13:39 Respiratory Assessment Respiratory Assessment - social research assistant: Respiratory Tract Infection Hx - social research assistant Hx Respiratory Tract Infection No 06/11/25 11:36 STOP Sleep Apnea STOP Sleep Apnea - social research assistant: STOP Sleep Apnea - social research assistant Hx Hypertension No 06/11/25 11:36 Hx Sleep Apnea No 06/11/25 11:36 CPAP No 06/11/25 11:36 BIPAP Do you snore loudly (louder No 06/11/25 11:36 than talking or can be heard Do you often feel tired/ No 06/11/25 11:36 fatigued/ sleepy during daytime? Has anyone observed you stop No 06/11/25 11:36 breathing during sleep? STOP Results Negative 06/11/25 11:36 QUESTION #5 FULL TEXT : Do you snore loudly (louder than talking or can be heard through closed doors)? Tobacco Use History Tobacco Use History - social research assistant: Tobacco Use History - social research assistant Tobacco Use Non-smoker 06/04/25 13:39 Smoking Status Never smoker 06/11/25 11:36 Hx Tobacco Use No 06/11/25 11:36 Years Smoking Packs Smoked per Day Smoking Cessation Date was within the last 15 years Hx Smoking Cessation Date Hx Smoking Cessation Counseling Hematologic Medial History Hematologic Hx - social research assistant: Hematologic Medical Hx - business intelligence manager Hx of Blood Transfusion Yes 06/11/25 11:36 Hx of Transfusion in last 3 No 06/11/25 11:36 Months Date of Last Transfusion (if within last 3 months) Ever experience any problems No 06/11/25 11:36 with transfusion(s)? Specify any problems Hx of Preganancy in last 3 N/A 06/11/25 11:36 Months Nurse Filling Out Transfusion NBUCHER 06/11/25 11:36 & Questions: Date: 06/11/25 06/11/25 11:36 Time: 11:39 06/11/25 11:36 Patient unable to answer at this time (ie. confused, unrespo /Reproduction History /Reproductive History - social research assistant: /Reproductive Hx- social research assistant Hx Now No 06/11/25 11:36 Gestational Age (in weeks): EDC: Hx Hx Para Hx Section SAB No 06/11/25 11:36 [facility] Medical History (Updated 06/11/25 @ 14:09 by Ashley Plasencia) Low iron Anemia Depression Dysphagia Gastrostomy in place History of steroid therapy Thyroid nodule Uses wheelchair Gout Prostate disease Antisynthetase syndrome Acute cystitis with hematuria Thyroid cyst Allergic rhinitis Major depressive disorder BPH (benign prostatic hyperplasia) Low back pain Disorder of zinc metabolism GERD (gastroesophageal reflux disease) Osteoporosis Adult failure to thrive Right bundle branch block Hypertension Atrial fibrillation Dysphagia, oropharyngeal Abscess of right lower extremity Personal history of immunosupression therapy Orthostatic hypotension PAF (paroxysmal atrial fibrillation) Steroid dependence Neuropathic pain Antisynthetase syndrome History of shingles Ambulatory dysfunction Shingles Abscess of left thigh BOOP (bronchiolitis obliterans with organizing pneumonia) Wears glasses High cholesterol Easy bruising Back pain Injury of head and neck Blackout Gastric reflux Non-smoker On home oxygen therapy Hoarseness Chronic cough History of echocardiogram Hypertension History of stress test Cardiology follow-up encounter History of atrial fibrillation Atrial fibrillation COVID-19 Osteoporosis Kidney stones Atrial fibrillation RBBB (right bundle branch block) Antisynthetase syndrome Essential hypertension Mixed hyperlipidemia Asthma Interstitial lung disease GERD (gastroesophageal reflux disease) Fatty liver BPH (benign prostatic hyperplasia) Lung nodule Vasovagal syncope Abnormal cardiac CT angiography Home Medications Medication Instructions Recorded Last Taken Type denosumab 60 mg/mL subcutaneous 60 mg subcut [id number] low calcuim 07/14/21 Unknown History syringe (Prolia) pantoprazole 40 mg tablet,delayed 40 mg PO DAILY reflu x 07/14/21 05/21/25 09:00 History release budesonide 0.5 mg/2 mL suspension 0.5 mg inhalation BI D sob 01/01/22 05/21/25 09:00 History for nebulization (Pulmicort) lactobacillus combination no.9 4 4,000 mmu cells PO DA ROBERT supplement 01/01/22 05/21/25 09:00 History billion cell capsule (Adult 50 Plus Probiotic) montelukast 10 mg tablet 10 mg PO DAILY allergies 05/21/25 History (Singulair) acetaminophen 325 mg tablet 650 mg (2 x 325 mg) PO Q6H PRN PRN 09/22/24 Unknown Rx Pain Score 1-10 #1 TAB apixaban 5 mg tablet (Eliquis) 5 mg PO BID #1 TAB 11/0 12/1505/21/25 09:00 Rx 5 mg ascorbic acid (vitamin C) 500 mg 500 mg PO QHS 4 05/20/25 History capsule prednisone 10 mg tablet 20 mg PO DAILYCM 05/21/25 History aluminum-mag hydroxide-simethicone 30 ml PO Q6H PRN in digestion 05/23/25 Unknown History 200 mg-200 mg-20 mg/5 mL oral susp cholecalciferol (vitamin D3) 25 25 mcg PO DAILY supple ment 05/23/25 Unknown History mcg (1,000 unit) tablet (Vitamin D3) ferrous sulfate 300 mg (60 mg 325 mg feeding tube CALLIE Y 05/23/25 Unknown History iron)/5 mL oral liquid supplemetn folic acid 1 mg tablet 1 mg PO DAILY supplement 01/16 Unknown History ipratropium 0.5 mg-albuterol 3 mg 3 ml inhalation Q4H PRN pneumonuia 05/23/25 Unknown History (2.5 mg base)/3 mL nebulization soln metoprolol tartrate 25 mg tablet 25 mg PO BID bp 05/23 Unknown History mometasone 220 mcg/actuation(60 1 inh inhalation BID s ob 05/23/25 Unknown History doses) breath activated powder inhaler (Asmanex Twisthaler) nystatin 100,000 unit/gram topical 1 applic topical DA ROBERT yeast 05/23/25 Unknown History powder ondansetron 4 mg disintegrating 4 mg PO Q6H PRN Nausea /Vomiting 05/23/25 05/20/25 22:00 History tablet 4 mg sertraline 50 mg tablet 50 mg PO DAILY depression Unknown History sulfamethoxazole 800 1 tab PO MOWEFR ATB 05/23/25 05/20/25 09:00 History mg-trimethoprim 160 mg tablet 1 TAB (Bactrim DS) ethambutol 400 mg tablet 1,200 mg PO Q24H 06/11/25 Un known History Allergy/AdvReac Type Severity Reaction Status Date / Time monosodium glutamate Allergy Abd Verified 06/11/25 11:35 cramps/diarrhea Penicillins (PCN) Allergy Rash Verified 06/11/25 11:35 allopurinol AdvReac Unknown cough Verified 06/11/25 11:35 morphine AdvReac Other Verified 06/11/25 11:35 tamsulosin (From Flomax) AdvReac Other Verified 06/11/25 11:35 Family History Grandfather CVA (cerebral vascular accident) Grandmother Congestive heart failure Grandmother Cardiac pacemaker in situ Mother Heart disease Hypertension Father Heart disease Cardiac arrhythmia Surgical History History of renal stent History of incision and drainage Hx of cystoscopy History of umbilical hernia repair History of inguinal hernia repair Social History household members: spouse Smoking Status: Never smoker alcohol intake: current details: Rare substance use type: does not use caffeine: Yes Type: coffee Number of servings: 1 Audit: Pertinent Findings Pertinent Findings EKG Perinent findings: May 22, 2025. Normal sinus rhythm. Right anterior fascicular block. Compared to EKG of October 10, 2024 PVCs and PACs are no longer present. Stress test pertinent findings: 02/03/2022. EF of 67%. Rest and stress nuclear imaging demonstrate relatively uniform tracer uptake and myocardial perfusion appearing within normal limits. Echo (EF%) pertinent findings: August 23, 2024. EF is 70%. No aortic stenosis. Consult pertinent findings: December 09, 2023. 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 1. Atrial fibrillation–[id number]-[id number] event monitor in December 2021 showed intermittent episodes of atrial flutter and fibrillation. He will continue metoprolol and diltiazem for rate control. Continue Eliquis for CVA protection. Most recent echo in March 12 shows normal ejection fraction. Most recent stress test in February 10 was negative for ischemia. Will refer to electrophysiology for A-fib management. And repeat an echo (see above). 2. Episode of difkxha-[id number]-qz recurrence of episode. Likely vasovagal syncope. 3. Hypertension–xucsfwi-ygch-gjlwnbrbdw. 4. Fatigue–acute-improved with down titration of the metoprolol. Additional pertinent findings: Holter monitor. January 28, 2024. Predominant rhythm is atrial fibrillation. 0.2% of the total QRS complexes are supraventricular ectopic beats. Patient had no symptoms in his diary. Current Visit Impressions Current Visit Impressions: Patient's hemoglobin is low at 9.6 but stable over the past month. Recommendation Anesthesia Recommendation Anesthesia recommendation: OPTIMIZED for anesthesia
[2025-06-13] VITALS (14 sets, daily range): BP systolic 60–130; BP diastolic 36–78; PULSE 58–84; RESP 16–18; TEMP 36.4–37.2; O2SAT 87–100; BMI 23.8
--- NOTE | 2025-06-13 07:02 | PCM.HP.STD ---
[facility] - General General Date of Service: 06/13/25 Chief Complaint: Kidney stone and bladder stones HPI Narrative YARON BUTLER, is a 74 M who presents to laser bladder stones go up and laser of the left kidney stone and then remove the stent [facility] Medical History (Updated 06/12/25 @ 15:12 by DINA Chiu) Low iron Anemia Depression Dysphagia Gastrostomy in place History of steroid therapy Thyroid nodule Uses wheelchair Gout Prostate disease Antisynthetase syndrome Acute cystitis with hematuria Thyroid cyst Allergic rhinitis Major depressive disorder BPH (benign prostatic hyperplasia) Low back pain Disorder of zinc metabolism GERD (gastroesophageal reflux disease) Osteoporosis Adult failure to thrive Right bundle branch block Hypertension Atrial fibrillation Dysphagia, oropharyngeal Abscess of right lower extremity Personal history of immunosupression therapy Orthostatic hypotension PAF (paroxysmal atrial fibrillation) Steroid dependence Neuropathic pain Antisynthetase syndrome History of shingles Ambulatory dysfunction Shingles Abscess of left thigh BOOP (bronchiolitis obliterans with organizing pneumonia) Wears glasses High cholesterol Easy bruising Back pain Injury of head and neck Blackout Gastric reflux Non-smoker On home oxygen therapy Hoarseness Chronic cough History of echocardiogram Hypertension History of stress test Cardiology follow-up encounter History of atrial fibrillation Atrial fibrillation COVID-19 Osteoporosis Kidney stones Atrial fibrillation RBBB (right bundle branch block) Antisynthetase syndrome Essential hypertension Mixed hyperlipidemia Asthma Interstitial lung disease GERD (gastroesophageal reflux disease) Fatty liver BPH (benign prostatic hyperplasia) Lung nodule Vasovagal syncope Abnormal cardiac CT angiography Home Medications Medication Instructions Recorded Last Taken Type denosumab 60 mg/mL subcutaneous 60 mg subcut [id number] low calcuim 07/14/21 Unknown History syringe (Prolia) pantoprazole 40 mg tablet,delayed 40 mg PO DAILY reflux 07/14/21 05/21/25 09:00 History release budesonide 0.5 mg/2 mL suspension 0.5 mg inhalation BID sob 01/01/22 05/21/25 09:00 History for nebulization (Pulmicort) lactobacillus combination no.9 4 4,000 mmu cells PO DAILY supplement 01/01/22 05/21/25 09:00 History billion cell capsule (Adult 50 Plus Probiotic) montelukast 10 mg tablet 10 mg PO DAILY allergies 05/12/23 05/21/25 History (Singulair) acetaminophen 325 mg tablet 650 mg (2 x 325 mg) PO Q6H PRN PRN 09/22/24 Unknown Rx Pain Score 1-10 #1 TAB apixaban 5 mg tablet (Eliquis) 5 mg PO BID #1 TAB 09/22/24 05/21/25 09:00 Rx 5 mg ascorbic acid (vitamin C) 500 mg 500 mg PO QHS 10/10/24 05/20/25 History capsule prednisone 10 mg tablet 20 mg PO DAILYCM 05/21/25 05/21/25 History aluminum-mag hydroxide-simethicone 30 ml PO Q6H PRN indigestion 05/23/25 Unknown History 200 mg-200 mg-20 mg/5 mL oral susp cholecalciferol (vitamin D3) 25 25 mcg PO DAILY supplement 05/23/25 Unknown History mcg (1,000 unit) tablet (Vitamin D3) ferrous sulfate 300 mg (60 mg 325 mg feeding tube DAILY 05/23/25 Unknown History iron)/5 mL oral liquid supplemetn folic acid 1 mg tablet 1 mg PO DAILY supplement 05/23/25 Unknown History ipratropium 0.5 mg-albuterol 3 mg 3 ml inhalation Q4H PRN pneumonuia 05/23/25 Unknown History (2.5 mg base)/3 mL nebulization soln metoprolol tartrate 25 mg tablet 25 mg PO BID bp 05/23/25 Unknown History mometasone 220 mcg/actuation(60 1 inh inhalation BID sob 05/23/25 Unknown History doses) breath activated powder inhaler (Asmanex Twisthaler) nystatin 100,000 unit/gram topical 1 applic topical DAILY yeast 05/23/25 Unknown History powder ondansetron 4 mg disintegrating 4 mg PO Q6H PRN Nausea/Vomiting 05/23/25 05/20/25 22:00 History tablet 4 mg sertraline 50 mg tablet 50 mg PO DAILY depression 05/23/25 Unknown History sulfamethoxazole 800 1 tab PO MOWEFR ATB 05/23/25 05/20/25 09:00 History mg-trimethoprim 160 mg tablet 1 TAB (Bactrim DS) ethambutol 400 mg tablet 1,200 mg PO Q24H 06/11/25 Unknown History azithromycin 250 mg tablet 250 mg PO DAILY 06/12/25 Unknown History rifabutin 150 mg capsule 300 mg PO DAILY 06/12/25 Unknown History Allergy/AdvReac Type Severity Reaction Status Date / Time monosodium glutamate Allergy Abd Verified 06/11/25 11:35 cramps/diarrhea Penicillins (PCN) Allergy Rash Verified 06/11/25 11:35 allopurinol AdvReac Unknown cough Verified 06/11/25 11:35 morphine AdvReac Other Verified 06/11/25 11:35 tamsulosin (From Flomax) AdvReac Other Verified 06/11/25 11:35 Family History Grandfather CVA (cerebral vascular accident) Grandmother Congestive heart failure Grandmother Cardiac pacemaker in situ Mother Heart disease Hypertension Father Heart disease Cardiac arrhythmia Surgical History History of renal stent History of incision and drainage Hx of cystoscopy History of umbilical hernia repair History of inguinal hernia repair Social History household members: spouse Smoking Status: Never smoker alcohol intake: current details: Rare substance use type: does not use caffeine: Yes Type: coffee Number of servings: 1
--- NOTE | 2025-06-13 12:08 | RAD_ITS ---
PROCEDURE: ABDOMEN SINGLE VIEW 06/13/2025 REASON FOR EXAM: KIDNEY STONES TECHNIQUE: ABDOMEN SINGLE VIEW COMPARISON: Abdominal MRI 05/22/2025. CT abdomen pelvis 10/10/2024. FINDINGS: Hardware: Indwelling left nephroureteral stent. There is incomplete coiling of the proximal portion of the stent. Partially visualized gastrostomy tube overlying the gastric bubble. Bowel gas: Gaseous distention of the large bowel loops without dilation. Bones: There are degenerative changes of the spine. Kidneys: Calcifications overlying the expected regions of the bilateral kidneys. RAD/Abdomen Single View IMPRESSION: Indwelling left nephroureteral stent as described. Punctate calcifications ove rlying the expected regions of the kidneys. Reading Location: [id number]
[2025-06-13] MEDS: Lactated Ringers 1,000 ML 15 ML IV (13:20)
--- NOTE | 2025-06-13 14:23 | PCM.PRE.AN2 ---
ASA Classification* ASA Classification ASA Classification: 4 Assessment & Plan Anesthesia* Anesthesia Assessment Anesthesia Assessment: Discussed sedation and/or anesthesia options, risks, benefits, and alternatives with patient/parents/legal guardian/POA. Questions invited. The patient/parents/legal guardian/POA seems to understand and agrees to proceed with anesthesia plan. Reviewed the physical assessment, medical history, allergy history and patient home medications list prior to surgery/procedure/anesthetic and documented any changes. Performed airway and anesthesia risk assessments. Anesthesia Type Anesthesia Type: General History Source History Obtained from:: Patient and Chart Anesthesia Focused Assessment* Temperature: 98.9 F Pulse Rate: 66 Blood Pressure: 93/59 Respiratory Rate: 18 Pulse Ox: 91 Oxygen Delivery Method: Room Air Airway Assessment Mouth opens: >3 cm Mallampati Score: III Teeth Condition: Implants (Patient has a couple implants. They are tight.) Neck Range of motion (ROM): Limited ROM (Severe Restriction) Labs Anesthesia Preop lab: CBC WBC 8.1 K/mm3 (4.4-11.0) 05/24/25 05:09 05/24/25 RBC 3.52 M/mm3 (4.6-6.2) L 05/24/25 05:09 05/24/25 Hgb 9.6 g/dL (13.0-16.5) L 05/24/25 05:09 05/24/25 Hct 32.7 % (40-54) L 05/24/25 05:09 05/24/25 Plt Count 358 K/mm3 (150-450) 05/24/25 05:09 05/24/25 CHEMISTRY Potassium 4.2 mmol/L (3.3-5.1) 05/24/25 05:09 05/24/25 Sodium 140 mmol/L (133-145) 05/24/25 05:09 05/24/25 Magnesium 2.1 mg/dL (1.5-2.2) 05/21/25 23:56 05/21/25 Phosphorus 4.0 mg/dL (2.7-4.5) 05/23/25 05:08 05/23/25 BUN 19 mg/dL (4-19) 05/24/25 05:09 05/24/25 Creatinine 0.92 mg/dL (0.70-1.20) 05/24/25 05:09 05/24/25 Glucose 126 mg/dL (70-99) H 05/24/25 05:09 05/24/25 TSH 1.790 uIU/mL (0.300-4.200) 05/22/25 04:45 05/22/25 COAG PT 20.4 SECONDS (11.7-14.9) H 10/10/24 18:20 10/10/24 Pre-Assessment Diagnosis/Proposed Procedure Planned Operative Procedure(s): Cysto, Litholapaxy, Laser, Bladder Stones, STENT CHANGE Anesthesia History 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 When Was Last Pacemaker Check QUESTION #4 FULL TEXT: You/Your Family Experience fever (hyperthermia) with Anesthesia Last Oral Intake Last Oral intake: Last Oral Intake NPO since 09:00 06/13/25 13:06 Meds taken in AM with sips of No 06/13/25 13:06 water? Meds patient instructed to take am of surgery Any additional information?: Yes NPO since: 09:00 (Patient swallowed water at 9 AM.) Meds taken in AM with sips of water?: No PONV PONV - inventory management specialist: PONV - inventory management specialist Female No 06/11/25 11:36 HX of Motion Sickness No 06/11/25 11:36 HX of N/V After Surgery No 06/11/25 11:36 Non-Smoker Yes 06/11/25 11:36 Duration of Surgery greater No 06/11/25 11:36 than 60 minutes Number of Risk Factors 1 06/11/25 11:36 PONV Score Low Risk 06/11/25 11:36 Height & Weight Height & Weight: Anesthesia: Height & Weight Height 5 ft 10 in 06/13/25 13:06 Weight: 75.189 kg 06/13/25 13:06 Body Mass Index (BMI) 23.8 06/13/25 13:06 Respiratory Assessment Respiratory Assessment - inventory management specialist: Respiratory Tract Infection Hx - inventory management specialist Hx Respiratory Tract Infection No 06/11/25 11:36 STOP Sleep Apnea STOP Sleep Apnea - inventory management specialist: STOP Sleep Apnea - inventory management specialist Hx Hypertension No 06/11/25 11:36 Hx Sleep Apnea No 06/11/25 11:36 CPAP No 06/11/25 11:36 BIPAP Do you snore loudly (louder No 06/11/25 11:36 than talking or can be heard Do you often feel tired/ No 06/11/25 11:36 fatigued/ sleepy during daytime? Has anyone observed you stop No 06/11/25 11:36 breathing during sleep? STOP Results Negative 06/11/25 11:36 QUESTION #5 FULL TEXT : Do you snore loudly (louder than talking or can be heard through closed doors)? Tobacco Use History Tobacco Use History - inventory management specialist: Tobacco Use History - inventory management specialist Tobacco Use Non-smoker 06/04/25 13:39 Smoking Status Never smoker 06/11/25 11:36 Hx Tobacco Use No 06/11/25 11:36 Years Smoking Packs Smoked per Day Smoking Cessation Date was within the last 15 years Hx Smoking Cessation Date Hx Smoking Cessation Counseling Hematologic Medial History Hematologic Hx - inventory management specialist: Hematologic Medical Hx - pre sales technical consultant Hx of Blood Transfusion Yes 06/11/25 11:36 Hx of Transfusion in last 3 No 06/11/25 11:36 Months Date of Last Transfusion (if within last 3 months) Ever experience any problems No 06/11/25 11:36 with transfusion(s)? Specify any problems Hx of Preganancy in last 3 N/A 06/11/25 11:36 Months Nurse Filling Out Transfusion NBUCHER 06/11/25 11:36 & Questions: Date: 06/11/25 06/11/25 11:36 Time: 11:39 06/11/25 11:36 Patient unable to answer at this time (ie. confused, unrespo /Reproduction History /Reproductive History - inventory management specialist: /Reproductive Hx- inventory management specialist Hx Now No 06/11/25 11:36 Gestational Age (in weeks): EDC: Hx Hx Para Hx Section SAB No 06/11/25 11:36 Active Medications Active Medications: Current Medications Generic Name Dose Route Start Last Admin Trade Name Freq PRN Reason Stop Dose Admin Cefazolin Sodium 2 gm/ Sodium 110 mls @ 200 mls/hr 06/13/25 14:30 Chloride IV 06/13/25 15:02 INTRAOP ONE Lactated Ringer's 1,000 mls @ 15 mls/hr 06/13/25 12:45 06/13/25 13:20 IV 15 mls/hr .Q48H MICA Administration PFSH Medical History Low iron Anemia Depression Dysphagia Gastrostomy in place History of steroid therapy Thyroid nodule Uses wheelchair Gout Prostate disease Antisynthetase syndrome Acute cystitis with hematuria Thyroid cyst Allergic rhinitis Major depressive disorder BPH (benign prostatic hyperplasia) Low back pain Disorder of zinc metabolism GERD (gastroesophageal reflux disease) Osteoporosis Adult failure to thrive Right bundle branch block Hypertension Atrial fibrillation Dysphagia, oropharyngeal Abscess of right lower extremity Personal history of immunosupression therapy Orthostatic hypotension PAF (paroxysmal atrial fibrillation) Steroid dependence Neuropathic pain Antisynthetase syndrome History of shingles Ambulatory dysfunction Shingles Abscess of left thigh BOOP (bronchiolitis obliterans with organizing pneumonia) Wears glasses High cholesterol Easy bruising Back pain Injury of head and neck Blackout Gastric reflux Non-smoker On home oxygen therapy Hoarseness Chronic cough History of echocardiogram Hypertension History of stress test Cardiology follow-up encounter History of atrial fibrillation Atrial fibrillation COVID-19 Osteoporosis Kidney stones Atrial fibrillation RBBB (right bundle branch block) Antisynthetase syndrome Essential hypertension Mixed hyperlipidemia Asthma Interstitial lung disease GERD (gastroesophageal reflux disease) Fatty liver BPH (benign prostatic hyperplasia) Lung nodule Vasovagal syncope Abnormal cardiac CT angiography Home Medications Medication Instructions Recorded Last Taken Type denosumab 60 mg/mL subcutaneous 60 mg subcut [id number] low calcuim 07/14/21 Unknown History syringe (Prolia) pantoprazole 40 mg tablet,delayed 40 mg PO DAILY reflux 07/14/21 06/12/25 History release budesonide 0.5 mg/2 mL suspension 0.5 mg inhalation BID sob 01/01/22 06/12/25 History for nebulization (Pulmicort) lactobacillus combination no.9 4 4,000 mmu cells PO DAILY supplement 01/01/22 06/12/25 History billion cell capsule (Adult 50 Plus Probiotic) montelukast 10 mg tablet 10 mg PO DAILY allergies 05/12/23 06/12/25 History (Singulair) acetaminophen 325 mg tablet 650 mg (2 x 325 mg) PO Q6H PRN PRN 09/22/24 06/12/25 Rx Pain Score 1-10 #1 TAB apixaban 5 mg tablet (Eliquis) 5 mg PO BID #1 TAB 09/22/24 06/10/25 Rx ascorbic acid (vitamin C) 500 mg 500 mg PO QHS 10/10/24 06/12/25 History capsule prednisone 10 mg tablet 20 mg PO DAILYCM 05/21/25 06/12/25 History aluminum-mag hydroxide-simethicone 30 ml PO Q6H PRN indigestion 05/23/25 06/12/25 History 200 mg-200 mg-20 mg/5 mL oral susp cholecalciferol (vitamin D3) 25 25 mcg PO DAILY supplement 05/23/25 06/12/25 History mcg (1,000 unit) tablet (Vitamin D3) ferrous sulfate 300 mg (60 mg 325 mg feeding tube DAILY 05/23/25 06/12/25 History iron)/5 mL oral liquid supplemetn folic acid 1 mg tablet 1 mg PO DAILY supplement 05/23/25 06/12/25 History ipratropium 0.5 mg-albuterol 3 mg 3 ml inhalation Q4H PRN pneumonuia 05/23/25 Unknown History (2.5 mg base)/3 mL nebulization soln metoprolol tartrate 25 mg tablet 25 mg PO BID bp 05/23/25 06/12/25 History mometasone 220 mcg/actuation(60 1 inh inhalation BID sob 05/23/25 06/12/25 History doses) breath activated powder [facility]er [facility] nystatin 100,000 unit/gram topical 1 applic topical DAILY yeast 05/23/25 06/12/25 History powder ondansetron 4 mg disintegrating 4 mg PO Q6H PRN Nausea/Vomiting 05/23/25 05/20/25 22:00 History tablet 4 mg sertraline 50 mg tablet 50 mg PO DAILY depression 05/23/25 06/12/25 History sulfamethoxazole 800 1 tab PO MOWEFR ATB 05/23/25 06/11/25 History mg-trimethoprim 160 mg tablet (Bactrim DS) ethambutol 400 mg tablet 1,200 mg PO Q24H 06/11/25 06/12/25 History azithromycin 250 mg tablet 250 mg PO DAILY 06/12/25 Unknown History rifabutin 150 mg capsule 300 mg PO DAILY 06/12/25 06/12/25 History Allergy/AdvReac Type Severity Reaction Status Date / Time monosodium glutamate Allergy Abd Verified 06/13/25 12:58 cramps/diarrhea Penicillins (PCN) Allergy Rash Verified 06/13/25 12:58 allopurinol AdvReac Unknown cough Verified 06/13/25 12:58 morphine AdvReac Other Verified 06/13/25 12:58 tamsulosin (From Flomax) AdvReac Other Verified 06/13/25 12:58 Family History Grandfather CVA (cerebral vascular accident) Grandmother Congestive heart failure Grandmother Cardiac pacemaker in situ Mother Heart disease Hypertension Father Heart disease Cardiac arrhythmia Surgical History History of renal stent History of incision and drainage Hx of cystoscopy History of umbilical hernia repair History of inguinal hernia repair Social History household members: spouse Smoking Status: Never smoker alcohol intake: current details: Rare substance use type: does not use caffeine: Yes Type: coffee Number of servings: 1 Review of Systems (Anesthesia) ROS Narrative System reviewed and no additional complaints, except as documented.
--- NOTE | 2025-06-13 15:47 | DCINST_ITS ---
Discharge Instructions DC O2, CPAP, BIPAP needs Home O2 Discharge instructions: No Dressing / Incision Discharge Activity: Return to Normal Activity Dressing / Incision Call your doctor if you observe: Fever of 101 or Higher Follow Up Care Please Follow Up With: Devon Bullard MD When: Call [phone] for an appointment, next week to remove stent Test Results: Test results from this visit will be discussed in further detail at your follow- up appointment, if applicable. Discharge Plan Admission Primary Reason for Your Visit: laser stones and stent Attending Provider: Devon Bullard Primary Care Provider: Tanya Pettit Instructions Print Language: Grenadian Discharge Orders/Prescriptions Prescriptions: New ciprofloxacin HCl [Cipro] 500 mg tablet 500 mg PO BID Qty: 6 0RF Continued pantoprazole 40 mg tablet,delayed release (DR/EC) 40 mg PO DAILY Prolia 60 mg/mL syringe 60 mg subcut [id number] Adult 50 Plus Probiotic 4 billion cell capsule 4,000 mmu cells PO DAILY Rx Instructions: administer with a meal budesonide [Pulmicort] 0.5 mg/2 mL suspension for nebulization 0.5 mg inhalation BID montelukast [Singulair] 10 mg tablet 10 mg PO DAILY azithromycin 250 mg tablet 250 mg PO DAILY rifabutin 150 mg capsule 300 mg PO DAILY prednisone 10 mg Tablet 20 mg PO DAILYCM cholecalciferol (vitamin D3) [Vitamin D3] 25 mcg (1,000 unit) tablet 25 mcg PO DAILY metoprolol tartrate 25 mg tablet 25 mg PO BID Asmanex Twisthaler 220 mcg/ actuation (60) aerosol powdr breath activated 1 inh inhalation BID sertraline 50 mg tablet 50 mg PO DAILY alum-mag hydroxide-simeth 200-200-20 mg/5 mL suspension 30 ml PO Q6H PRN (Reason: indigestion) nystatin 100,000 unit/gram powder 1 applic topical DAILY ipratropium-albuterol 0.5 mg-3 mg(2.5 mg base)/3 mL solution for nebulization 3 ml inhalation Q4H PRN Patient Comments: [NO ORIGINAL SIG] ferrous sulfate 300 mg (60 mg iron)/5 mL liquid 325 mg feeding tube DAILY folic acid 1 mg tablet 1 mg PO DAILY sulfamethoxazole-trimethoprim [Bactrim DS] 800-160 mg tablet 1 tab PO MOWEFR Rx Instructions: take every MWF ondansetron 4 mg Tablet,Disintegrating 4 mg PO Q6H PRN (Reason: Nausea/Vomiting) acetaminophen 325 mg Tablet 650 mg PO Q6H PRN PRN (Reason: Pain Score 1-10) Qty: 1 0RF Eliquis 5 mg Tablet 5 mg PO BID Qty: 1 0RF Rx Instructions: LAST DOSE 09/22/24 AT 10 AM. ON HOLD FOR ANTICIPATED SURGERY ascorbic acid (vitamin C) 500 mg capsule 500 mg PO QHS ethambutol 400 mg tablet 1,200 mg PO Q24H Referrals / Follow Up: Tanya Pettit DO [Primary Care Provider] - Devon Bullard MD [Med Staff - Active Staff] - Disposition Disposition (needs filled in before D/C Order can be placed): Home, Self Care
--- NOTE | 2025-06-13 15:48 | PCM.OPRPT ---
Operative Report (Standard) Operative Information Date of Procedure: 06/13/25 Pre-Operative Diagnosis: Bladder stones small, left proximal ureteral calculi and left renal calculi multiple Post-Operative Diagnosis: The same Surgery/Procedure Performed: Cystoscopy cystolitholapaxy and laser bladder stones, left ureteroscopy laser of the ureteral stone and laser of kidney stones left stent placement metrologist: No Type of Anesthesia: General RN Documented Start/Stop Times: Operation Date: 06/13/25 14:25 Case Time Into Pre-Op 06/13/25 12:32 Anesthesia Start 06/13/25 14:57 Into Room 06/13/25 14:57 Out of Pre-Op 06/13/25 14:57 Procedure Start 06/13/25 15:09 Procedure End 06/13/25 15:43 Procedure Start Time: 15:09 Procedure Stop Time: 15:49 Select all DRAINS/GRAFTS/IMPLANTS that apply: Drains Drain details: Left stent Estimated Blood Loss: 2cc Specimen collected: No Description of surgery: Patient is takeback to the operating room after smooth duction of anesthesia he was placed in supine on the table went in the bladder with a 21 Citizen [place] rigid cystourethroscope I then inside the bladder there was multiple bladder stones I used a 900 µm laser fiber laser the stones the time pieces and all the pieces and evacuated out of the bladder I then grabbed the stent on the left side pulled out the meatus put a wire through the stent over the wire went in with a flexible ureteroscope I then encountered the stone in the proximal ureter and used a 200 µm laser fiber and lasered the stone completely small little pieces I then pushed the fragments back into the kidney and trapped them in the midpole calyx and lasered the stone completely there were 2 other stones in the kidney that were lasered completely during the case a first flexible ureteroscope vision went bedside switched over to a second flexible ureteroscope and then immediately the second scope was also flipped over to the third ureteroscope the third scope was also poor visualization but we ran out of scope so I could use another good working ureteroscope with the best I could tell him the stones were cleared out so then I placed a stent on the left side I had a lot of debris in the kidney so I felt like a stent was necessary but the stent on the left side I left a string of the stent and I can follow-up next week to remove the stent with a string again the case was limited by the fact that that all 3 flexible ureteroscope that I used were not working perfectly and the visualization was poor. Bladder was drained patient ascetic was reversed he is taken back to PACU in good condition Surgical Findings: Stones lasered in the bladder and removed stones in the proximal ureter lasered and kidney lasered completely stent placed Complications Complications: No Admit VTE Documentation VTE Present on Admission: No VTE Mechan Device Prophylaxis: SCD's VTE Pharm Prophylaxis ordered?: No
--- NOTE | 2025-06-13 15:58 | PCM.POST.ANE ---
Anesthesia: Postop Eval I Current Vital Signs Temperature: 98.3 F Pulse Rate: 72 Blood Pressure: 124/77 Respiratory Rate: 16 Pulse Ox: 97 Oxygen Delivery Method: Room Air Assessment Airway patent: Yes Spontaneous unlabored respirations: Yes Mental status: Awake and Calm nausea: No Vomiting: No Anesthesia Complication: No Fluid Hydration Crystalloid volume administer (ml): 900 Total IV fluid infused: 900 Progress Note Anesthesia document: Postop Eval 1 completed: Yes
--- NOTE | 2025-06-13 16:15 | EKG12_ITS ---
Test Reason : POST OP, HYPOTENSIVVE Blood Pressure : */* mmHG Vent. Rate : 64 BPM Atrial Rate : 64 BPM P-R Int : 120 ms QRS Dur : 114 ms QT Int : 424 ms P-R-T Axes : * -39 3 degrees QTcB Int : 437 ms Sinus rhythm with Premature atrial complexes Left axis deviation Incomplete right bundle branch block Abnormal ECG No previous ECGs available Confirmed by JOSE ESCALERA, LINSEY ([id number]), order editor ASIYA JACKSON ([id number]) on 06/21/2025 6:36:08 AM Referred By: Devon Bullard Confirmed By: LINSEY GARCIA MD
--- NOTE | 2025-06-13 16:50 | SUR.PHASEI ---
HAD EPISODE HYPOTENSION AT 1605 AFTER PACU ARRIVAL, SBP DROPPED FROM 109 TO 60 CONFIRMED BY RECHECK, BECAME PALE, DIAPHORETIC, NAUSEATED, DRY HEAVES. PLACED IN TRENDELENBURG, O2 PLACED, INITIATED IVF BOLUS PER DR GALLEGO. ORDERED 12-LEAD EKG FOR INTERMITTANT AFIB PER CASTRO WHILE IN O.R., SINUS ARRHYTHMIA IN PACU. PATIENT ALSO STATES WEARS HOME O2 AT H.S. @ 2.5 L/min. HAS SINCE IMPROVED, DENIES FURTHER NAUSEA, DENIES PAIN, VSS. NO FURTHER EPISODES. DR GALLEGO CALLED TO REVIEW EKG. PATIENT ON 2.5 L/MIN O2 AT HOME.
--- NOTE | 2025-06-13 17:04 | PCM.POSTANE2 ---
Anesthesia Postop Eval I Sum Postop Eval Completion status Anesthesia document: Postop Eval 1 completed: Yes Anesthesia Postop Eval I Summary Anesthesia Postop Eval I Summary: Anesthesia Postop Eval I: Assessment Summary Airway patent Yes 06/13/25 15:59 FLUORESCENT SOLUTION [email or web address] Spontaneous unlabored Yes 06/13/25 15:59 FLUORESCENT SOLUTION [email or web address] respirations Mental status Awake,Calm 06/13/25 15:59 FLUORESCENT SOLUTION [email or web address] nausea No 06/13/25 15:59 FLUORESCENT SOLUTION [email or web address] Vomiting No 06/13/25 15:59 FLUORESCENT SOLUTION [email or web address] Anesthesia Postop Eval I: Fluid Summary Crystalloid volume administer 900 06/13/25 15:59 FLUORESCENT SOLUTION [email or web address] (ml) Colloids volume administered ( ml) Blood Product volume administered (ml) Total IV fluid infused 900 06/13/25 15:59 FLUORESCENT SOLUTION [email or web address] Anesthesia Postop Eval I: Summary Notes Anesthesia Complication No 06/13/25 15:59 FLUORESCENT SOLUTION [email or web address] Anesthesia Complication Comment: Post-operative progress note Anesthesia: Postop Eval II Evaluation Mental status: Awake and Calm Pain Level: 0 nausea: No Vomiting: No Progress Note Post-operative progress note: Patient had a vagal episode in the recovery room. Patient dropped his heart rate and blood pressure and became nauseated, pale and diaphoretic. He was placed in Trendelenburg position. Started giving him some nasal cannula oxygen and a bolus of IV fluid. Patient almost immediately started to improve with improved blood pressures and feeling less nauseated. There was some arrhythmia noted on the ekg monitor. Will get a twelve-lead EKG and continue the bolus of IV fluid. 16:25 twelve-lead EKG was performed. Sinus rhythm with PACs. Left axis deviation. Incomplete right bundle branch block. Patient is feeling much better at this time. Still on 2 L nasal cannula oxygen. Apparently the patient is on oxygen at night at his assisted. Okay to discharge at this time. Complications Anesthesia Complication: No
== END 2025-06-13 17:55 | disposition home or self-care (01) ==
LOC: SDC 12:06 → AC 12:08
PROVIDERS: PCP Internal Medicine; Referring Provider Urology; Visit Provider Urology
PROC: (CPT 52356; principal; 2025-06-13 14:15)
DX: N20.2 Calculus of kidney with calculus of ureter (principal); I48.0 Paroxysmal atrial fibrillation; N21.0 Calculus in bladder; N40.0 Benign prostatic hyperplasia without lower urinary tract symptoms; K21.9 Gastro-esophageal reflux disease without esophagitis; I10 Essential (primary) hypertension; R55 Syncope and collapse; E78.00 Pure hypercholesterolemia, unspecified; Z79.01 Long term (current) use of anticoagulants; Z79.899 Other long term (current) drug therapy
CPT/HCPCS: 52356; 52317; 00910; 74018; 76000; 93005; A4216; C2617; J2405

== ENCOUNTER 2025-06-22 20:11 | Inpatient (IN) | payer MEDICARE, BC, SELFPAY ==
[2025-06-22 19:35] VITALS: BP 94/55; PULSE 106; RESP 20; TEMP 36.8; O2SAT 98
[2025-06-22 19:45] VITALS: BMI 25.5
--- NOTE | 2025-06-22 20:07 | PCM.HP.STD ---
HPI - General General Date of Admission: 06/22/25 Date of Service: 06/22/25 Chief Complaint: Reported episodes of wide-complex tachycardia HPI Narrative YARON BUTLER, is a 74 M who presented to [facility] on 06/22/2025 as a transfer from [facility] for reported episodes of wide-complex tachycardia. 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 Most recently he had cystoscopy with laser treatment of ureteral stones with left stent placement done with Dr. Bullard here on 06/13. Unfortunately he developed urosepsis symptoms the next day and was admitted to [facility] for this. He was treated there with IV meropenem with good resolution of the infection. He was transitioned to oral antibiotics and plan was for patient to return to SNF on 06/22. However, patient had an episode of wide-complex tachycardia on hospital day 4. Home beta-rosa maria was restarted and echo showed normal ejection fraction with no other concerning findings. He then had another episode of wide-complex tachycardia on morning of 06/22. Was asymptomatic with this run and BP was stable. Recommendation from hospitalist there was for close outpatient follow-up with cardiology but patient's requested transfer here for cardiology evaluation prior to discharge to SNF. I saw the patient here shortly after he arrived, was present. Patient was sitting back comfortably in bed, answering questions with short appropriate responses and in no acute distress. Patient denied any acute pain or discomfort. Denied any acute concerns at this time. Notably his was generally upset and frustrated by his overall health condition and was somewhat lorie with the conversation. [facility] Medical History Low iron Anemia Depression Dysphagia Gastrostomy in place History of steroid therapy Thyroid nodule Uses wheelchair Gout Prostate disease Antisynthetase syndrome Acute cystitis with hematuria Thyroid cyst Allergic rhinitis Major depressive disorder BPH (benign prostatic hyperplasia) Low back pain Disorder of zinc metabolism GERD (gastroesophageal reflux disease) Osteoporosis Adult failure to thrive Right bundle branch block Hypertension Atrial fibrillation Dysphagia, oropharyngeal Abscess of right lower extremity Personal history of immunosupression therapy Orthostatic hypotension PAF (paroxysmal atrial fibrillation) Steroid dependence Neuropathic pain Antisynthetase syndrome History of shingles Ambulatory dysfunction Shingles Abscess of left thigh BOOP (bronchiolitis obliterans with organizing pneumonia) Wears glasses High cholesterol Easy bruising Back pain Injury of head and neck Blackout Gastric reflux Non-smoker On home oxygen therapy Hoarseness Chronic cough History of echocardiogram Hypertension History of stress test Cardiology follow-up encounter History of atrial fibrillation Atrial fibrillation COVID-19 Osteoporosis Kidney stones Atrial fibrillation RBBB (right bundle branch block) Antisynthetase syndrome Essential hypertension Mixed hyperlipidemia Asthma Interstitial lung disease GERD (gastroesophageal reflux disease) Fatty liver BPH (benign prostatic hyperplasia) Lung nodule Vasovagal syncope Abnormal cardiac CT angiography Home Medications ?Medication ?Instructions ?Recorded ?Last Taken ?Type denosumab 60 mg/mL subcutaneous 60 mg subcut [id number] low calcuim 07/14/21 Unknown History syringe (Prolia) pantoprazole 40 mg tablet,delayed 40 mg PO DAILY reflux 07/14/21 06/12/25 History release budesonide 0.5 mg/2 mL suspension 0.5 mg inhalation BID sob 01/01/22 06/12/25 History for nebulization (Pulmicort) lactobacillus combination no.9 4 4,000 mmu cells PO DAILY supplement 01/01/22 06/12/25 History billion cell capsule (Adult 50 Plus Probiotic) montelukast 10 mg tablet 10 mg PO QHS allergies 05/12/23 06/12/25 History (Singulair) acetaminophen 325 mg tablet 650 mg (2 x 325 mg) PO Q6H PRN PRN 09/22/24 06/12/25 Rx Pain Score 1-10 #1 TAB apixaban 5 mg tablet (Eliquis) 5 mg PO BID #1 TAB 09/22/24 06/10/25 Rx ascorbic acid (vitamin C) 500 mg 500 mg PO DAILY supple 10/10/24 06/12/25 History capsule prednisone 10 mg tablet 20 mg PO DAILYCM steriod 05/21/25 06/12/25 History aluminum-mag hydroxide-simethicone 30 ml PO Q6H PRN indigestion 05/23/25 06/12/25 History 200 mg-200 mg-20 mg/5 mL oral susp cholecalciferol (vitamin D3) 25 25 mcg PO DAILY supplement 05/23/25 06/12/25 History mcg (1,000 unit) tablet (Vitamin D3) ferrous sulfate 300 mg (60 mg 325 mg feeding tube DAILY 05/23/25 06/12/25 History iron)/5 mL oral liquid supplemetn folic acid 1 mg tablet 1 mg PO DAILY supplement 05/23/25 06/12/25 History ipratropium 0.5 mg-albuterol 3 mg 3 ml inhalation Q4H PRN pneumonuia 05/23/25 Unknown History (2.5 mg base)/3 mL nebulization soln metoprolol tartrate 25 mg tablet 25 mg PO BID bp 05/23/25 06/12/25 History mometasone 220 mcg/actuation(60 1 inh inhalation BID sob 05/23/25 06/12/25 History doses) breath activated powder inhaler (Asmanex Twisthaler) nystatin 100,000 unit/gram topical 1 applic topical BID yeast 05/23/25 06/12/25 History powder ondansetron 4 mg disintegrating 4 mg PO Q6H PRN Nausea/Vomiting 05/23/25 05/20/25 22:00 History tablet 4 mg sertraline 50 mg tablet 50 mg PO DAILY depression 05/23/25 06/12/25 History sulfamethoxazole 800 1 tab PO MOWEFR ATB 05/23/25 06/11/25 History mg-trimethoprim 160 mg tablet (Bactrim DS) ethambutol 400 mg tablet 1,200 mg PO Q24H n/a 06/11/25 06/12/25 History azithromycin 250 mg tablet 250 mg PO QHS antibiotic 06/12/25 Unknown History rifabutin 150 mg capsule 300 mg PO DAILY antibacterial 06/12/25 06/12/25 History Allergy/AdvReac Type Severity Reaction Status Date / Time monosodium glutamate Allergy Abd Verified 06/13/25 12:58 cramps/diarrhea Penicillins (PCN) Allergy Rash Verified 06/13/25 12:58 allopurinol AdvReac Unknown cough Verified 06/13/25 12:58 morphine AdvReac Other Verified 06/13/25 12:58 tamsulosin (From Flomax) AdvReac Other Verified 06/13/25 12:58 Family History Grandfather CVA (cerebral vascular accident) Grandmother Congestive heart failure Grandmother Cardiac pacemaker in situ Mother Heart disease Hypertension Father Heart disease Cardiac arrhythmia Surgical History History of renal stent History of incision and drainage Hx of cystoscopy History of umbilical hernia repair History of inguinal hernia repair Social History household members: spouse Smoking Status: Never smoker alcohol intake: current details: Rare substance use type: does not use caffeine: Yes Type: coffee Number of servings: 1 ROS Constitutional Constitutional: Denies chills, fatigue, fever(s) or weakness Eyes Eyes: Denies change in vision Cardiovascular Cardiovascular: Denies chest pain Respiratory/Chest Respiratory/Chest: Denies shortness of breath at rest Gastrointestinal Gastrointestinal: Denies abdominal pain Musculoskeletal Musculoskeletal: Denies arthralgias or myalgias Vital Signs Vital Signs Vital Signs: 06/22/25 19:35 Temperature 98.3 F Temperature Source Oral Pulse Rate 106 H Respiratory Rate 20 H Blood Pressure 94/55 L Blood Pressure Mean 68 Blood Pressure Source Monitor Blood Pressure Position Semi-Fowlers Blood Pressure Location Right Arm Pulse Ox 98 Oxygen Delivery Method Nasal Cannula Oxygen Flow Rate (L/min) 3 Weight Weight: 80.9 kg Body Mass Index (BMI) 25.5 Physical Exam Const alert, oriented x3, no apparent distress and average body habitus Constitutional Narrative: Elderly male, mildly fatigued and chronically ill-appearing, otherwise sitting back fairly comfortably in bed, answering questions appropriately, in no acute distress. General Appearance: cooperative and comfortable HEENT normocephalic, head/scalp atraumatic, hearing grossly normal bilaterally and nasal mucous membranes and turbinates normal Eyes PERRL, EOMs intact bilaterally and conjunctivae normal Neck full ROM Chest inspection of chest normal Resp normal respiratory effort, normal air movement, no use of accessory muscles and clear to auscultation bilaterally Cardio no murmurs and peripheral pulses 2+ throughout Cardio Narrative: Tachycardic, irregular rhythm. GI normal to inspection, nondistended, normoactive bowel sounds, soft to palpation, non-tender and non-distended GI Narrative: PEG tube in place, site appears clean and dry. Back/Spine normal ROM Extremity no pedal edema Psych mental status grossly normal Results Lab / Micro Data 06/22/25 21:35 06/22/25 21:35 Assessment & Plan Assessment/Plan (1) Wide-complex tachycardia: PLAN: Plan Patient is a 74-year-old male who presented to [facility] on 06/22/2025 as a transfer from [facility] for reported runs of wide-complex tachycardia. 1. Reported runs of wide-complex tachycardia; history of chronic A-fib ? Admit under inpatient status to PCU. Cardiology consulted. Has followed with cardiology here in the past. Last office visit was in 11/2023 and he was evaluated inpatient by cardiology on 08/2024. On Lopressor 50 mg twice daily and Eliquis for A-fib. Reportedly had 2 runs of wide-complex tachycardia at outside hospital. Asymptomatic and BP stable with both episodes. Echo there apparently showed normal EF and no other concerning findings. Plan was for outpatient cardiology follow-up but was insistent on having cardiology evaluate inpatient prior to discharge to SNF. EKG obtained on admit here and patient noted to be in secondary Mobitz type I heart block with rates in the 120s. Rate improved with being given home Lopressor as well as a dose of IV Lopressor. Will maintain cardiac monitoring overnight. Appreciate cardiology recommendations. Continue home Lopressor and Eliquis. 2. Recent sepsis secondary to UTI, recent kidney stones s/p left ureteral stent placement ? Follows with Dr. Bullard. Had cystoscopy with left ureteral stent placement for recent kidney stones on 06/13. Developed urosepsis requiring admission to [facility] the following day. Treated with IV meropenem there with resolution of UTI. Completed 7-day course of antibiotics there, no need for further antibiotics at this time. No further inpatient needs, continue outpatient follow-up with urology. 3. Chronic lower extremity osteomyelitis with mycobacterial organisms ? Stable. Continue home rifabutin, ethambutol and azithromycin. 4. Chronic debility ? artist relationship manager consulted. Patient planning to return to [facility] on discharge. 5. Moderate protein calorie malnutrition s/p PEG tube placement ? Speech therapy consulted. Difficult to determine from notes but it appears PEG tube was placed for protein calorie malnutrition rather than swallowing issues. Speech therapy evaluated the patient here in early May and apparently placed patient on regular texture with thin liquid diet. However, notes that patient has not been on a regular diet since his hospitalization at [facility]. Will keep patient n.p.o. for now and follow-up speech therapy recommendations tomorrow. Okay for p.o. medications and ice chips. 6. GERD ? Continue home PPI. 7. Anxiety/depression ? Continue home sertraline. DVT prophylaxis: Not indicated, on Eliquis CODE STATUS: Full code, verified Expected disposition: SNF, TBD Total clinical time spent by myself addressing the patient's medical issues, reviewing all the data, and collaborating with patient's care team: 75 minutes. Charges/Coding Visit Charges Inpatient E&M: 52678 Init Hosp L3
--- NOTE | 2025-06-22 20:59 | EKG12_ITS ---
Test Reason : DYSRHYTHMIA Blood Pressure : */* mmHG Vent. Rate : 97 BPM Atrial Rate : 138 BPM P-R Int : * ms QRS Dur : 114 ms QT Int : 344 ms P-R-T Axes : -18 -52 -8 degrees QTcB Int : 436 ms Critical Test Result: AV Block Sinus tachycardia with 2nd degree A-V block (Mobitz I) Incomplete right bundle branch block Left anterior fascicular block Abnormal ECG Confirmed by JOSE ESCALERA, LINSEY ([id number]), field map editor SEA FIGUEROA ([id number]) on 06/25/2025 10:30:13 AM Referred By: FERMIN Confirmed By: LINSEY GARCIA MD
[2025-06-22 21:09] VITALS: PULSE 125
[2025-06-22] MEDS: 0.9% Saline Lock 10 ML Syringe IV (21:09)
[2025-06-22] MEDS: LACTATED RINGERS 500 ML 999 ML IV (21:46)
[2025-06-22 21:59] LABS: Hematocrit 29.3 % (40-54); Hemoglobin 8.4 g/dL (13.0-16.5); Immature Granulocytes Count 0.050 X10^3/uL (0.0-0.0); Mean Corp Hgb Conc 28.7 g/dL (32-36); Mean Corpuscular Volume 88.3 fL (80-94); Mean Platelet Vol. 10.2 fl (6.2-12.0); NRBC Flagged by Analyzer 0 % (0-5); POSITIVE DIFFERENTIAL YES; Platelet Count 312 K/mm3 (150-450); RBC Distribution Width CV 17.7 % (11.6-14.6); RBC Distribution Width SD 57.5 fl (35.1-43.9); Red Blood Count 3.32 M/mm3 (4.6-6.2); White Blood Count 12.2 K/mm3 (4.4-11.0)
[2025-06-22 22:16] LABS: Anion Gap 9 (5-15); BUN 20 mg/dL (4-19); BUN/Creat Ratio 18.9 RATIO (10-20); Calcium,Total 8.0 mg/dL (7.6-11.0); Carbon Dioxide 23.9 mmol/L (21.0-32.0); Chloride 104 mmol/L (98-108); Estimated Creatinine Clearance 64.43 ml/min (50-250); Glucose 90 mg/dL (70-99); Potassium 4.6 mmol/L (3.3-5.1)
[2025-06-22 22:49] VITALS: BP 103/77; PULSE 98; RESP 18; TEMP 37.2; O2SAT 96
[2025-06-22 22:52] VITALS: PULSE 98
[2025-06-23] VITALS (7 sets, daily range): BP systolic 96–107; BP diastolic 58–77; PULSE 85–121; RESP 16–18; TEMP 36.6–36.8; O2SAT 93–99
[2025-06-23] MEDS: Lactobacillis Acidophilus 1 CAP GT (09:15)
[2025-06-23] MEDS: Cholecalciferol (VIT D3) 25 MCG TABLET (1,000 UNITS) GT (09:15)
[2025-06-23] MEDS: APIXABAN 5 MG TABLET PO ×2 (10:13→21:49)
--- NOTE | 2025-06-23 13:45 | CASEMGMT ---
Social Work SW met w/pt, he confirms plan is for him to return to [facility] at discharge, so SNF list not needed at this time. SW sent updates to [facility] via [employer], awaiting response if pt can return at d/c. GRISELDA will continue to follow. KALLI Pascual
--- NOTE | 2025-06-23 13:48 | PCM.CONS.C ---
Documented by User: Dr. Ayaz Lewis MD 06/23/25 15:14 Assessment & Plan Assessment/Plan (1) Wide-complex tachycardia: (2) Right bundle branch block: (3) Atrial fibrillation: PLAN: Plan Currently patient is atrial fibrillation, rate controlled, underlying right bundle branch block, stable electrolytes Patient has persistent atrial fibrillation with underlying right bundle branch block, he could have gone into RVR episode that appeared like wide-complex tachycardia, we recommend to get strips to confirm the findings Maintain potassium above 4, mag above 2, normal hemoglobin, check TSH Continue current medical therapy; with metoprolol for rate control, Eliquis for anticoagulation. HPI Consult Data Date of Consult: 06/23/25 HPI Narrative Reason for Consultation: Wide-complex tachycardia HPI Narrative: YARON BUTLER, is a 74 M who presents wide-complex tachycardia Patient presented to [facility] on 06/22/2025 as a transfer from [facility] for reported episodes of wide-complex tachycardia. 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 Most recently he had cystoscopy with laser treatment of ureteral stones with left stent placement done with Dr. Bullard here on 06/13. Unfortunately he developed urosepsis symptoms the next day and was admitted to [facility] for this. He was treated there with IV meropenem with good resolution of the infection. He was transitioned to oral antibiotics and plan was for patient to return to SNF on 06/22. However, patient had an episode of wide-complex tachycardia on hospital day 4. Home beta-rosa maria was restarted and echo showed normal ejection fraction with no other concerning findings. He then had another episode of wide-complex tachycardia on morning of 06/22. Was asymptomatic with this run and BP was stable. Recommendation from hospitalist there was for close outpatient follow-up with cardiology but patient's requested transfer here for cardiology evaluation prior to discharge to SNF. [facility] Medical History (Updated 06/23/25 @ 13:[address] Ayaz Lewis MD) Low iron Anemia Depression Dysphagia Gastrostomy in place History of steroid therapy Thyroid nodule Uses wheelchair Gout Prostate disease Antisynthetase syndrome Acute cystitis with hematuria Thyroid cyst Allergic rhinitis Major depressive disorder BPH (benign prostatic hyperplasia) Low back pain Disorder of zinc metabolism GERD (gastroesophageal reflux disease) Osteoporosis Adult failure to thrive Right bundle branch block Hypertension Atrial fibrillation Dysphagia, oropharyngeal Abscess of right lower extremity Personal history of immunosupression therapy Orthostatic hypotension PAF (paroxysmal atrial fibrillation) Steroid dependence Neuropathic pain Antisynthetase syndrome History of shingles Ambulatory dysfunction Shingles Abscess of left thigh BOOP (bronchiolitis obliterans with organizing pneumonia) Wears glasses High cholesterol Easy bruising Back pain Injury of head and neck Blackout Gastric reflux Non-smoker On home oxygen therapy Hoarseness Chronic cough History of echocardiogram Hypertension History of stress test Cardiology follow-up encounter History of atrial fibrillation Atrial fibrillation COVID-19 Osteoporosis Kidney stones Atrial fibrillation RBBB (right bundle branch block) Antisynthetase syndrome Essential hypertension Mixed hyperlipidemia Asthma Interstitial lung disease GERD (gastroesophageal reflux disease) Fatty liver BPH (benign prostatic hyperplasia) Lung nodule Vasovagal syncope Abnormal cardiac CT angiography Home Medications ?Medication ?Instructions ?Recorded ?Last Taken ?Type denosumab 60 mg/mL subcutaneous 60 mg subcut [id number] low calcuim 07/14/21 Unknown History syringe (Prolia) pantoprazole 40 mg tablet,delayed 40 mg PO DAILY reflux 07/14/21 06/12/25 History release lactobacillus combination no.9 4 4,000 mmu cells PO DAILY supplement 01/01/22 06/12/25 History billion cell capsule (Adult 50 Plus Probiotic) montelukast 10 mg tablet 10 mg PO QHS allergies 05/12/23 06/12/25 History (Singulair) apixaban 5 mg tablet (Eliquis) 5 mg PO BID #1 TAB 09/22/24 06/10/25 Rx ascorbic acid (vitamin C) 500 mg 500 mg PO DAILY supple 10/10/24 06/12/25 History capsule prednisone 10 mg tablet 20 mg PO DAILYCM steriod 05/21/25 06/12/25 History cholecalciferol (vitamin D3) 25 25 mcg PO DAILY supplement 05/23/25 06/12/25 History mcg (1,000 unit) tablet (Vitamin D3) ferrous sulfate 300 mg (60 mg 325 mg feeding tube DAILY 05/23/25 06/12/25 History iron)/5 mL oral liquid supplemetn folic acid 1 mg tablet 1 mg PO DAILY supplement 05/23/25 06/12/25 History ipratropium 0.5 mg-albuterol 3 mg 3 ml inhalation Q4H PRN pneumonuia 05/23/25 Unknown History (2.5 mg base)/3 mL nebulization soln mometasone 220 mcg/actuation(60 1 inh inhalation BID sob 05/23/25 06/12/25 History doses) breath activated powder inhaler (Asmanex Twisthaler) nystatin 100,000 unit/gram topical 1 applic topical BID yeast 05/23/25 06/12/25 History powder ondansetron 4 mg disintegrating 4 mg PO Q6H PRN Nausea/Vomiting 05/23/25 05/20/25 22:00 History tablet 4 mg sertraline 50 mg tablet 50 mg PO DAILY depression 05/23/25 06/12/25 History sulfamethoxazole 800 1 tab PO MOWEFR ATB 05/23/25 06/11/25 History mg-trimethoprim 160 mg tablet (Bactrim DS) ethambutol 400 mg tablet 1,200 mg PO Q24H n/a 06/11/25 06/12/25 History azithromycin 250 mg tablet 250 mg PO QHS antibiotic 06/12/25 Unknown History rifabutin 150 mg capsule 300 mg PO DAILY antibacterial 06/12/25 06/12/25 History acetaminophen 325 mg tablet 650 mg (2 x 325 mg) PO Q6H PRN PRN 06/24/25 Unknown Rx Pain 1-10 Or Fever>100.7 #0 tabs metoprolol tartrate 50 mg tablet 50 mg G-tube BID #0 tabs 06/24/25 Unknown Rx Allergy/AdvReac Type Severity Reaction Status Date / Time monosodium glutamate Allergy Abd Verified 06/13/25 12:58 cramps/diarrhea Penicillins (PCN) Allergy Rash Verified 06/13/25 12:58 allopurinol AdvReac Unknown cough Verified 06/13/25 12:58 morphine AdvReac Other Verified 06/13/25 12:58 tamsulosin (From Flomax) AdvReac Other Verified 06/13/25 12:58 Family History Grandfather CVA (cerebral vascular accident) Grandmother Congestive heart failure Grandmother Cardiac pacemaker in situ Mother Heart disease Hypertension Father Heart disease Cardiac arrhythmia Surgical History History of renal stent History of incision and drainage Hx of cystoscopy History of umbilical hernia repair History of inguinal hernia repair Social History household members: spouse Smoking Status: Never smoker alcohol intake: current details: Rare substance use type: does not use caffeine: Yes Type: coffee Number of servings: 1 Physical Exam Narrative General: Alert, oriented x3, debilitated, in mild respiratory distress HEENT: Normocephalic, normal vision, normal EOM. Neck: Normal JVD, no carotid Bruit, no thyromegaly , no lymphadenopathy. Chest wall: Normal shape, non tender. Cardiac: Irregularly irregular rhythm, normal rate, no rubs, gallops or murmurs noted. Respiratory: Clear to auscultation bilaterally. Abdomen: Feeding tube in place, nondistended, nontender, no ascites or masses or organomegaly noted, normal bowel sounds. Extremities: Normal pulsations, no edema, normal strength and muscle mass. Neurological: Gross CN examination is normal, generalized weakness Objective Data Vital Signs: Vital Signs Temp Pulse Resp BP Pulse Ox O2 Del Method O2 Flow Rate 98.0 F 102 H 18 105/70 96 Nasal Cannula 2 06/23/25 09:50 06/23/25 09:50 06/23/25 09:50 06/23/25 09:50 06/23/25 09:50 06/23/25 09:50 06/23/25 09:50 Oxygen Flow Rate (L/min) 2 Oxygen Delivery Method Nasal Cannula Weight: 178 lb 5.663 oz Body Mass Index (BMI) 25.5 Intake & Output: Intake and Output for Last 24 Hours 06/21/25 06/22/25 06/23/25 23:59 23:59 23:59 Intake Total 500 / 640 140 / 140 Output Total 700 / 700 Balance 500 / 340 -560 / -560 Lab / Micro Data 06/24/25 06:03 06/24/25 06:03 Labs: Laboratory Results - last 24 hr 06/22/25 21:35: WBC 12.2 H, RBC 3.32 L, Hgb 8.4 L, Hct 29.3 L, MCV 88.3, MCH 25.3 L, MCHC 28.7 L, RDW Std Deviation 57.5 H, RDW Coeff of Opal 17.7 H, Plt Count 312, MPV 10.2, Immature Gran % (Auto) 0.400, Neut % (Auto) 88.6 H, Lymph % (Auto) 1.6 L, [place] % (Auto) 9.0, Eos % (Auto) 0.1, Baso % (Auto) 0.3, Absolute Neuts (auto) 10.8 H, Absolute Lymphs (auto) 0.20 L, Nucleated RBC % 0, Sodium 137, Potassium 4.6, Chloride 104, Carbon Dioxide 23.9, Anion Gap 9, BUN 20 H, Creatinine 1.07, Estim Creat Clear Calc 64.43, Est GFR (MDRD) Non-Af 74, BUN/Creatinine Ratio 18.9, Glucose 90, Calcium 8.0 Cardiology Labs/Tests 06/22/25 21:35: WBC 12.2 H, RBC 3.32 L, Hgb 8.4 L, Hct 29.3 L, MCV 88.3, MCH 25.3 L, MCHC 28.7 L, Plt Count 312, MPV 10.2, Immature Gran % (Auto) 0.400, Neut % (Auto) 88.6 H, Lymph % (Auto) 1.6 L, [place] % (Auto) 9.0, Eos % (Auto) 0.1, Baso % (Auto) 0.3, Absolute Neuts (auto) 10.8 H, Nucleated RBC % 0, Sodium 137, Potassium 4.6, Chloride 104, Carbon Dioxide 23.9, Anion Gap 9, BUN 20 H, Creatinine 1.07, Est GFR (MDRD) Non-Af 74, BUN/Creatinine Ratio 18.9, Glucose 90, Calcium 8.0 Rhythm: EKG: ECHO: Stress Test: Cardiac Cath: PCI: CT Surgery: Holter monitor: EPS: PPM: CXR: Chest CT Scan: Documented by User: Dr. Víctor Lan MD 06/25/25 09:32 Assessment & Plan Assessment/Plan (1) Wide-complex tachycardia: (2) Right bundle branch block: (3) Atrial fibrillation: HPI Consult Data Date of Consult: 06/25/25 [facility] Medical History (Updated 06/23/25 @ 13:[address] Ayaz Lewis MD) Low iron Anemia Depression Dysphagia Gastrostomy in place History of steroid therapy Thyroid nodule Uses wheelchair Gout Prostate disease Antisynthetase syndrome Acute cystitis with hematuria Thyroid cyst Allergic rhinitis Major depressive disorder BPH (benign prostatic hyperplasia) Low back pain Disorder of zinc metabolism GERD (gastroesophageal reflux disease) Osteoporosis Adult failure to thrive Right bundle branch block Hypertension Atrial fibrillation Dysphagia, oropharyngeal Abscess of right lower extremity Personal history of immunosupression therapy Orthostatic hypotension PAF (paroxysmal atrial fibrillation) Steroid dependence Neuropathic pain Antisynthetase syndrome History of shingles Ambulatory dysfunction Shingles Abscess of left thigh BOOP (bronchiolitis obliterans with organizing pneumonia) Wears glasses High cholesterol Easy bruising Back pain Injury of head and neck Blackout Gastric reflux Non-smoker On home oxygen therapy Hoarseness Chronic cough History of echocardiogram Hypertension History of stress test Cardiology follow-up encounter History of atrial fibrillation Atrial fibrillation COVID-19 Osteoporosis Kidney stones Atrial fibrillation RBBB (right bundle branch block) Antisynthetase syndrome Essential hypertension Mixed hyperlipidemia Asthma Interstitial lung disease GERD (gastroesophageal reflux disease) Fatty liver BPH (benign prostatic hyperplasia) Lung nodule Vasovagal syncope Abnormal cardiac CT angiography Home Medications ?Medication ?Instructions ?Recorded ?Last Taken ?Type denosumab 60 mg/mL subcutaneous 60 mg subcut [id number] low calcuim 07/14/21 Unknown History syringe (Prolia) pantoprazole 40 mg tablet,delayed 40 mg PO DAILY reflux 07/14/21 06/12/25 History release lactobacillus combination no.9 4 4,000 mmu cells PO DAILY supplement 01/01/22 06/12/25 History billion cell capsule (Adult 50 Plus Probiotic) montelukast 10 mg tablet 10 mg PO QHS allergies 05/12/23 06/12/25 History (Singulair) apixaban 5 mg tablet (Eliquis) 5 mg PO BID #1 TAB 09/22/24 06/10/25 Rx ascorbic acid (vitamin C) 500 mg 500 mg PO DAILY supple 10/10/24 06/12/25 History capsule prednisone 10 mg tablet 20 mg PO DAILYCM steriod 05/21/25 06/12/25 History cholecalciferol (vitamin D3) 25 25 mcg PO DAILY supplement 05/23/25 06/12/25 History mcg (1,000 unit) tablet (Vitamin D3) ferrous sulfate 300 mg (60 mg 325 mg feeding tube DAILY 05/23/25 06/12/25 History iron)/5 mL oral liquid supplemetn folic acid 1 mg tablet 1 mg PO DAILY supplement 05/23/25 06/12/25 History ipratropium 0.5 mg-albuterol 3 mg 3 ml inhalation Q4H PRN pneumonuia 05/23/25 Unknown History (2.5 mg base)/3 mL nebulization soln mometasone 220 mcg/actuation(60 1 inh inhalation BID sob 05/23/25 06/12/25 History doses) breath activated powder inhaler (Asmanex Twisthaler) nystatin 100,000 unit/gram topical 1 applic topical BID yeast 05/23/25 06/12/25 History powder ondansetron 4 mg disintegrating 4 mg PO Q6H PRN Nausea/Vomiting 05/23/25 05/20/25 22:00 History tablet 4 mg sertraline 50 mg tablet 50 mg PO DAILY depression 05/23/25 06/12/25 History sulfamethoxazole 800 1 tab PO MOWEFR ATB 05/23/25 06/11/25 History mg-trimethoprim 160 mg tablet (Bactrim DS) ethambutol 400 mg tablet 1,200 mg PO Q24H n/a 06/11/25 06/12/25 History azithromycin 250 mg tablet 250 mg PO QHS antibiotic 06/12/25 Unknown History rifabutin 150 mg capsule 300 mg PO DAILY antibacterial 06/12/25 06/12/25 History acetaminophen 325 mg tablet 650 mg (2 x 325 mg) PO Q6H PRN PRN 06/24/25 Unknown Rx Pain 1-10 Or Fever>100.7 #0 tabs metoprolol tartrate 50 mg tablet 50 mg G-tube BID #0 tabs 06/24/25 Unknown Rx Allergy/AdvReac Type Severity Reaction Status Date / Time monosodium glutamate Allergy Abd Verified 06/13/25 12:58 cramps/diarrhea Penicillins (PCN) Allergy Rash Verified 06/13/25 12:58 allopurinol AdvReac Unknown cough Verified 06/13/25 12:58 morphine AdvReac Other Verified 06/13/25 12:58 tamsulosin (From Flomax) AdvReac Other Verified 06/13/25 12:58 Family History Grandfather CVA (cerebral vascular accident) Grandmother Congestive heart failure Grandmother Cardiac pacemaker in situ Mother Heart disease Hypertension Father Heart disease Cardiac arrhythmia Surgical History History of renal stent History of incision and drainage Hx of cystoscopy History of umbilical hernia repair History of inguinal hernia repair Social History household members: spouse Smoking Status: Never smoker alcohol intake: current details: Rare substance use type: does not use caffeine: Yes Type: coffee Number of servings: 1 Risk Stratification Risk Stratification Applicable: No Lab / Micro Data 06/24/25 06:03 06/24/25 06:03
[2025-06-23] MEDS: Jevity 1.5 1,000 ML 60 ML GT (14:47)
--- NOTE | 2025-06-23 15:51 | PCM.PN.HOSP ---
Reason for Visit Chief Complaint: Reported episodes of wide-complex tachycardia Subjective Subjective Unfortunately, there are no rhythm strips from outside hospital to review. He has been intermittent A-fib and normal sinus rhythm while here with a narrow complex. Patient does have a history of a right bundle branch block. I do question whether or not this is A-fib with aberhency or it sounds like all we have to do is threatened her with a straight cath and she got through straight graft I do not think we should do a standing order and I really do not want a Vigil Vigil catheter versus a rate dependent bundle branch block. Patient states he was not symptomatic when he had these symptoms. Objective Data Objective Data Vital Signs: Vital Signs Temp Pulse Resp BP Pulse Ox O2 Del Method O2 Flow Rate 98.0 F 102 H 18 105/70 93 Nasal Cannula 1 06/23/25 09:50 06/23/25 09:50 06/23/25 09:50 06/23/25 09:50 06/23/25 10:00 06/23/25 10:00 06/23/25 10:00 Oxygen Flow Rate (L/min) 1 Oxygen Delivery Method Nasal Cannula Weight: 80.9 kg Body Mass Index (BMI) 25.5 Intake & Output: Intake and Output for Last 24 Hours 06/21/25 06/22/25 06/23/25 23:59 23:59 23:59 Intake Total 500 / 640 140 / 140 Output Total 700 / 700 Balance 500 / 340 -560 / -560 Lab / Micro Data 06/22/25 21:35 06/22/25 21:35 Labs: Laboratory Results - last 24 hr 06/22/25 21:35: WBC 12.2 H, RBC 3.32 L, Hgb 8.4 L, Hct 29.3 L, MCV 88.3, MCH 25.3 L, MCHC 28.7 L, RDW Std Deviation 57.5 H, RDW Coeff of Opal 17.7 H, Plt Count 312, MPV 10.2, Immature Gran % (Auto) 0.400, Neut % (Auto) 88.6 H, Lymph % (Auto) 1.6 L, [place] % (Auto) 9.0, Eos % (Auto) 0.1, Baso % (Auto) 0.3, Absolute Neuts (auto) 10.8 H, Absolute Lymphs (auto) 0.20 L, Nucleated RBC % 0, Sodium 137, Potassium 4.6, Chloride 104, Carbon Dioxide 23.9, Anion Gap 9, BUN 20 H, Creatinine 1.07, Estim Creat Clear Calc 64.43, Est GFR (MDRD) Non-Af 74, BUN/Creatinine Ratio 18.9, Glucose 90, Calcium 8.0 Physical Exam Const alert, oriented x3, no apparent distress and average body habitus; Negative for healthy appearing or well nourished Constitutional Narrative: Older, white male who appears much older than stated age, lying in bed, looks chronically ill but not acutely toxic, appears comfortable at this time HEENT head/scalp atraumatic and moist oral mucous membranes HEENT Narrative: Mucous membranes seem slightly dry Head and Scalp: normocephalic Resp normal respiratory effort, no retractions, no use of accessory muscles and clear to auscultation bilaterally Auscultation: Negative for rales, rhonchi or wheezes Cardio regular rate, regular rhythm, S1 normal heart sound, S2 normal heart sound, no murmurs, no rub, no gallops and no clicks GI normal to inspection, nondistended, normoactive bowel sounds, soft to palpation and non-tender GI Narrative: PEG tube left upper quadrant Extremity Extremity Narrative: Marked decreased lean muscle mass, bilateral lower extremity pitting edema from decreased movement, pedal pulses are 2+ bilaterally, no clubbing or cyanosis Neuro oriented x3, moves all extremities and no focal motor deficits Neuro Narrative: Marked generalized weakness but no focal deficits Speech: speech normal Psych Psych Narrative: Affect is flat, patient is somewhat withdrawn compared to the last time I saw him Assessment & Plan Assessment/Plan (1) Atrial fibrillation: (2) Right bundle branch block: (3) Wide-complex tachycardia: PLAN: Plan Wide-complex tachycardia - Highly suspect related to either atrial fibrillation with aberrancy or rate dependent right bundle branch block - No events on monitor as of yet here and records were not sent for us to review - Echocardiogram done at outside hospital was unremarkable - Discussed with cardiology and felt safe for discharge tomorrow with outpatient follow-up as long as cardiac monitoring is unremarkable Mobitz type I heart block - Stable rhythm - No need for further intervention - Outpatient follow-up with cardiology after discharge Recent sepsis secondary to UTI - Patient with recent kidney stone status post left ureteral stent placement - Follows with Dr. Aron now - Cystoscopy with left ureteral stent placement on 06/13 - Developed urosepsis requiring admission at outside hospital the day after treatment - Has completed treatment with meropenem Leukocytosis - Mild - Trending down from outside hospital Chronic anemia - Relatively stable - Trend - Continue home iron supplementation History of atrial fibrillation with RVR - Continue home metoprolol - Continue home Eliquis Chronic lower extremity osteomyelitis - Patient is on chronic antibiotic microbials with rifabutin, ethambutol, and azithromycin - ongoing outpatient follow-up with ID - Wound care consultation - Continue home probiotic - Continue home vitamin C supplementation Moderate malnutrition - PEG tube in place - Takes in pleasure feeds - Speech therapy is following - Start regular diet GERD -continue home PPI Osteoarthritis/hypocalcemia - Outpatient Prolia Depression - Continue home sertraline Chronic debility - Plan is to return to [facility] at discharge - Awaiting information from [facility] DVT prophylaxis - On Eliquis CODE STATUS Full code as verified Charges/Coding Visit Charges Inpatient E&M: 18907 Subs Hosp L2
--- NOTE | 2025-06-23 15:54 | CASEMGMT ---
Addendum entered by Elke Alex 06/23/25 16:45: Social Work SW called [facility] again, spoke w/supervisor propellant charge loading Elda. She did not hear back from admissions. SW asked if she can text admissions to have them call PCU directly if pt can return on the weekend. Green sheet placed on chart should admissions call back and give permission for pt to return on the weekend. Otherwise, SW will follow up on Wednesday. KALLI Pascual Original Note: Social Work SW did not get a message back in [facility] in regard to whether or not pt can return to [facility] on the weekend. SW called [facility], spoke w/the charge nurse, she is to have the admissions person call SW to let SW know if pt can return on the weekend. KALLI Pascual
[2025-06-23] MEDS: ETHAMBUTOL HCL 400 MG TABLET 1200 MG PO (17:57)
[2025-06-24 03:00] VITALS: BP 111/82; PULSE 80; RESP 16; TEMP 36.7; O2SAT 96
[2025-06-24 06:36] LABS: Hematocrit 29.5 % (40-54); Hemoglobin 8.6 g/dL (13.0-16.5); Mean Corp Hgb Conc 29.2 g/dL (32-36); Mean Corpuscular Volume 86.3 fL (80-94); Mean Platelet Vol. 10.4 fl (6.2-12.0); Platelet Count 354 K/mm3 (150-450); RBC Distribution Width CV 17.7 % (11.6-14.6); RBC Distribution Width SD 55.8 fl (35.1-43.9); Red Blood Count 3.42 M/mm3 (4.6-6.2); White Blood Count 13.5 K/mm3 (4.4-11.0)
[2025-06-24 07:07] LABS: Anion Gap 10 (5-15); BUN 25 mg/dL (4-19); BUN/Creat Ratio 27.0 RATIO (10-20); Calcium,Total 8.1 mg/dL (7.6-11.0); Carbon Dioxide 23.0 mmol/L (21.0-32.0); Chloride 106 mmol/L (98-108); Estimated Creatinine Clearance 73.35 ml/min (50-250); Glucose 134 mg/dL (70-99); Magnesium 2.6 mg/dL (1.5-2.2); Potassium 4.1 mmol/L (3.3-5.1)
[2025-06-24 07:22] VITALS: O2SAT 93
[2025-06-24 08:34] VITALS: PULSE 92
[2025-06-24] MEDS: Lactobacillis Acidophilus 1 CAP GT (08:35)
[2025-06-24] MEDS: Cholecalciferol (VIT D3) 25 MCG TABLET (1,000 UNITS) GT (08:35)
[2025-06-24] MEDS: APIXABAN 5 MG TABLET PO (08:35)
[2025-06-24] MEDS: Jevity 1.5 1,000 ML 60 ML GT (08:36)
[2025-06-24] MEDS: ETHAMBUTOL HCL 400 MG TABLET 1200 MG PO (08:36)
[2025-06-24 09:00] VITALS: BP 96/56; PULSE 92; RESP 18; TEMP 36.6; O2SAT 97
[2025-06-24 11:00] VITALS: BP 101/64; PULSE 86; RESP 17; TEMP 36.6; O2SAT 95
[2025-06-24] MEDS: Sodium Phosphate/Na Biphos 45 MMOL in 0.9% Normal Saline (500mL Bag) 500 ML 85 MMOL IV (11:09)
[2025-06-24 13:01] LABS: Mucous, Urine 0 SEEN /hpf (<or=2+); Red Blood Cells-Urine 0 SEEN /hpf (0-5); Squamous Epithelial Cells - UA 0 SEEN /hpf (0-5)
[2025-06-24 13:03] LABS: Color, Urine Yellow (Yellow); Glucose, Dipstick Normal (Normal); Ketone-Dipstick Negative (Negative); Leukocyte Esterase-Dipstick 500 /ul (Negative); Nitrite-Dipstick Negative (Negative); Occult Blood-Urine 250 /ul (Negative); Protein-Dipstick 100 mg/dl (Negative); Specific Gravity, Urine 1.015 (1.002-1.030); Urine Bilirubin Dipstick Negative (Negative)
--- NOTE | 2025-06-24 13:54 | DS.PCM_ITS ---
Providers Date of Admission: 06/22/25 Date of Discharge: 06/24/25 Primary Care Physician: Dr. Tanya Pettit DO Consultations 06/22/25 20:07 Consult: Cardiology Routine Consulting Provider: Ayaz Lewis Reason for Consult: runs of wide complex tachycardia EMERGENT Consult: No MD Notified: Yes Date Notified: 06/23/25 Time Notified: 07:51 Method of Notification: Verbal Reason For Visit: RUNS OF WIDE COMPLEX TACHYCARDIA, RECENT Diagnosis Discharge Diagnosis (1) Atrial fibrillation: Status: Acute Code(s): I48.91 - Unspecified atrial fibrillation (2) Right bundle branch block: Status: Acute Code(s): I45.10 - Unspecified right bundle-branch block (3) Wide-complex tachycardia: Status: Acute Code(s): R00.0 - Tachycardia, unspecified Medications at Discharge Home Medications denosumab 60 mg/mL subcutaneous syringe (Prolia) 60 mg subcut [id number] low calcuim 07/14/21 pantoprazole 40 mg tablet,delayed release 40 mg PO DAILY reflux 07/14/21 lactobacillus combination no.9 4 billion cell capsule (Adult 50 Plus Probiotic) 4,000 mmu cells PO DAILY supplement 01/01/22 montelukast 10 mg tablet (Singulair) 10 mg PO QHS allergies 05/12/23 apixaban 5 mg tablet (Eliquis) 5 mg PO BID #1 TAB 09/22/24 ascorbic acid (vitamin C) 500 mg capsule 500 mg PO DAILY supple 10/10/24 prednisone 10 mg tablet 20 mg PO DAILYCM steriod 05/21/25 cholecalciferol (vitamin D3) 25 mcg (1,000 unit) tablet (Vitamin D3) 25 mcg PO DAILY supplement 05/23/25 ferrous sulfate 300 mg (60 mg iron)/5 mL oral liquid 325 mg feeding tube DAILY supplemetn 05/23/25 folic acid 1 mg tablet 1 mg PO DAILY supplement 05/23/25 ipratropium 0.5 mg-albuterol 3 mg (2.5 mg base)/3 mL nebulization soln 3 ml inhalation Q4H PRN pneumonuia 05/23/25 mometasone 220 mcg/actuation(60 doses) breath activated powder inhaler (Asmanex Twisthaler) 1 inh inhalation BID sob 05/23/25 nystatin 100,000 unit/gram topical powder 1 applic topical BID yeast 05/23/25 ondansetron 4 mg disintegrating tablet 4 mg PO Q6H PRN Nausea/Vomiting 05/23/25 sertraline 50 mg tablet 50 mg PO DAILY depression 05/23/25 sulfamethoxazole 800 mg-trimethoprim 160 mg tablet (Bactrim DS) 1 tab PO MOWEFR ATB 05/23/25 ethambutol 400 mg tablet 1,200 mg PO Q24H n/a 06/11/25 azithromycin 250 mg tablet 250 mg PO QHS antibiotic 06/12/25 rifabutin 150 mg capsule 300 mg PO DAILY antibacterial 06/12/25 acetaminophen 325 mg tablet 650 mg (2 x 325 mg) PO Q6H PRN PRN Pain 1-10 Or Fever>100.7 #0 tabs 06/24/25 metoprolol tartrate 50 mg tablet 50 mg G-tube BID #0 tabs 06/24/25 Hospital Course Operations None Procedures EKG Summary of Care Provided Minutes Spent on Discharge: 30 Hospital Course: Patient is a 74-year-old white male with a complex past medical history who was transferred from outside hospital at [facility] on 06/22/2025. He was admitted there on 06/14/2024 after developing sepsis secondary to UTI after having cystoscopy with lithotripsy for ureteral stones and left stent amazement done by Dr. Mcqueen here on 06/13/2025. He was treated with IV meropenem and had good resolution of his infection with antibiotic course being completed prior to discharge. Plan was for the patient return to the residential facility on 06/22/2025 but developed wide-complex tachycardia on hospital day 4. His home beta-rosa maria was restarted and echocardiogram was done outside facility which was unremarkable for any acute findings. He had another episode on 06/22/2025 and per his 's recommendation based on previous cardiology follow-up he was transferred here. Patient was monitored on telemetry throughout his hospital course with no recurrence of wide-complex tachycardia. We unfortunately do not have the rhythm strips for evaluation from outside facility. He was maintained on his anticoagulation and beta-rosa maria while he was hospitalized. Cardiology was consulted the patient was evaluated by Dr. Lan. It was recommended he continue his metoprolol and Eliquis for anticoagulation. It was highly suspected that he had a rate dependent right bundle branch block as he has a history of intermittent right bundle branch block or an episode of atrial fibrillation with abherrancy. Electrolytes were assessed and were normal. He did have some hypophosphatemia on the a.m. of 06/24/2025 and this was treated with 45 mmol of sodium phosphate. Mag and potassium were normal. Given the recurrent it was felt he was stable to discharge to [facility] his ECF on 06/24/2025. It was asked that he follow-up with Dr. Lan in the next 2 weeks and I have recommended he follow-up with Dr. Bullard next week. We did a UA at the time of discharge to reassess and this was not consistent with infection. There was no bacteria. Patient was discharged back to [facility] in stable condition on 06/24/2025. Discharge diagnoses: Wide-complex tachycardia suspicious for A-fib with aberrancy versus rate dependent right bundle branch block Mobitz type II heart block Recent sepsis secondary to UTI Nephrolithiasis Leukocytosis Chronic hypoxic respiratory failure Chronic anemia History of atrial fibrillation with RVR Chronic lower extremity osteomyelitis Moderate malnutrition GERD Osteoarthritis Hypocalcemia Depression Chronic debility Physical Exam Const alert, oriented x3, no apparent distress, average body habitus and no limitations; Negative for healthy appearing or well nourished Constitutional Narrative: Older, white male who appears much older than stated age, lying in bed, looks chronically ill but not acutely toxic, appears comfortable at this time General Appearance: cooperative, comfortable, well kempt and well developed Exam Limitations: no limitations HEENT normocephalic, head/scalp atraumatic, hearing grossly normal bilaterally and moist oral mucous membranes HEENT Narrative: Mild temporal wasting bilaterally, no scleral icterus Resp normal respiratory effort, normal air movement, no retractions, no use of accessory muscles and clear to auscultation bilaterally Resp Narrative: Diminished at bases bilaterally Auscultation: Negative for rales, rhonchi or wheezes Cardio regular rate, S1 normal heart sound, S2 normal heart sound, no murmurs, no rub, no gallops and no clicks Cardio Narrative: Irregular irregular rhythm GI normal to inspection, nondistended, normoactive bowel sounds, soft to palpation and non-tender GI Narrative: PEG tube left upper quadrant-clean dry and intact Extremity no pedal edema Extremity Narrative: Marked decreased lean muscle mass, bilateral lower extremity pitting edema from decreased movement, pedal pulses are 2+ bilaterally, no clubbing or cyanosis, decreased active dorsiflexion bilateral lower extremities Neuro oriented x3 and moves all extremities Neuro Narrative: Severe weakness especially bilateral lower extremities Speech: speech normal Psych mental status grossly normal Psych Narrative: Affect is flat, patient is somewhat withdrawn compared to the last time I saw him Weight / BMI Weight Weight: 80.9 kg Body Mass Index (BMI) 25.5 ABG / Lab / Microbiology Data 06/24/25 06:03 06/24/25 06:03 Laboratory: Laboratory Results - last 24 hr 06/24/25 06:03: WBC 13.5 H, RBC 3.42 L, Hgb 8.6 L, Hct 29.5 L, MCV 86.3, MCH 25.1 L, MCHC 29.2 L, RDW Std Deviation 55.8 H, RDW Coeff of Opal 17.7 H, Plt Count 354, MPV 10.4, Sodium 138, Potassium 4.1, Chloride 106, Carbon Dioxide 23.0, Anion Gap 10, BUN 25 H, Creatinine 0.94, Estim Creat Clear Calc 73.35, Est GFR (MDRD) Non-Af 87, BUN/Creatinine Ratio 27.0 H, Glucose 134 H, Calcium 8.1, P hosphorus 1.9 L, Magnesium 2.6 H 06/24/25 12:55: Urine Color Yellow, Urine Clarity Cloudy, Urine pH 6.0, Ur Specific [place] 1.015, Urine Protein 100 H, Urine Glucose (UA) Normal, Urine Ketones Negative, Urine Occult Blood 250 H, Urine Nitrite Negative, Urine Bilirubin Negative, Urine Urobilinogen Normal, Ur Leukocyte Esterase 500 H, Urine RBC 0 SEEN, Urine WBC 10-25 SEEN, Ur Squamous Epith Cells 0 SEEN, Urine Bacteria 0 SEEN, Urine Mucus 0 SEEN D/C Instructions DC O2, CPAP, BIPAP Needs Home O2 Discharge instructions: Yes Type of respiratory needs?: Oxygen Oxygen frequency: Continuous Continuous oxygen liters per minute: 2 DC home with Oxygen: Yes Home O2 MD Review: I have reviewed the oxygen testing, and the patient qualifies for home oxygen equipment and portability. The patient is mobile in the home and the community. Meaningful Use Info Meaningful Use Meaningful Use Diagnoses (Choose all that apply): None applicable Discharge Plan Admission Admit Date/Time: 06/22/25 20:11 Primary Reason for Your Visit: Wide-complex tachycardia Attending Provider: Amelia Quiñonez Primary Care Provider: Tanya Pettit Consulting Providers: Deepak Hall; Ayaz Lewis Instructions Additional Instructions / Restrictions: 1. Continue tube feed as previously ordered 2. Please follow-up with urology in 1 week Discharge Orders/Prescriptions Prescriptions: New acetaminophen 325 mg Tablet 650 mg PO Q6H PRN PRN (Reason: Pain 1-10 Or Fever>100.7) Qty: 0 0RF metoprolol tartrate 50 mg Tablet 50 mg G-tube BID Qty: 0 0RF Continued pantoprazole 40 mg tablet,delayed release (DR/EC) 40 mg PO DAILY Prolia 60 mg/mL syringe 60 mg subcut [id number] Adult 50 Plus Probiotic 4 billion cell capsule 4,000 mmu cells PO DAILY Rx Instructions: administer with a meal montelukast [Singulair] 10 mg tablet 10 mg PO QHS azithromycin 250 mg tablet 250 mg PO QHS rifabutin 150 mg capsule 300 mg PO DAILY prednisone 10 mg Tablet 20 mg PO DAILYCM cholecalciferol (vitamin D3) [Vitamin D3] 25 mcg (1,000 unit) tablet 25 mcg PO DAILY Asmanex Twisthaler 220 mcg/ actuation (60) aerosol powdr breath activated 1 inh inhalation BID sertraline 50 mg tablet 50 mg PO DAILY nystatin 100,000 unit/gram powder 1 applic topical BID ipratropium-albuterol 0.5 mg-3 mg(2.5 mg base)/3 mL solution for nebulization 3 ml inhalation Q4H PRN Patient Comments: [NO ORIGINAL SIG] ferrous sulfate 300 mg (60 mg iron)/5 mL liquid 325 mg feeding tube DAILY folic acid 1 mg tablet 1 mg PO DAILY sulfamethoxazole-trimethoprim [Bactrim DS] 800-160 mg tablet 1 tab PO MOWEFR Rx Instructions: take every MWF ondansetron 4 mg Tablet,Disintegrating 4 mg PO Q6H PRN (Reason: Nausea/Vomiting) Eliquis 5 mg Tablet 5 mg PO BID Qty: 1 0RF Rx Instructions: LAST DOSE 09/22/24 AT 10 AM. ON HOLD FOR ANTICIPATED SURGERY ascorbic acid (vitamin C) 500 mg capsule 500 mg PO DAILY ethambutol 400 mg tablet 1,200 mg PO Q24H Discontinued budesonide [Pulmicort] 0.5 mg/2 mL suspension for nebulization 0.5 mg inhalation BID metoprolol tartrate 25 mg tablet 25 mg PO BID alum-mag hydroxide-simeth 200-200-20 mg/5 mL suspension 30 ml PO Q6H PRN (Reason: indigestion) acetaminophen 325 mg Tablet 650 mg PO Q6H PRN PRN (Reason: Pain Score 1-10) Qty: 1 0RF Referrals / Follow Up: Víctor Lan MD [Med Staff - Active Staff] - Within 2 Weeks (Hospital follow-up) Tanya Pettit DO [Primary Care Provider] - Devon Bullard MD [Med Staff - Active Staff] - Within 1 Week (Follow-up after hospitalization) Disposition Disposition (needs filled in before D/C Order can be placed): [facility] Charges/Coding Visit Charges Inpatient E&M: 91578 SNF Disch
--- NOTE | 2025-06-24 15:39 | TREXTCAR_ITS ---
Diet Diet Order/Speech Therapy: INPATIENT Hospital Diet / Speech Therapy Order(s) 06/23/25 11:27 Diet: Regular - General Food consistency:: Regular Liquid Consistency:: Regular/Thin Diet Comments: cut up meats Routine Orders/Code Status Suppository Frequency: Daily PRN Routine Lab Work: CBC (5 days) and BMP (5 days) Code Status: Full Code DC O2, CPAP, BIPAP needs Home O2 Discharge instructions: Yes Type of respiratory needs?: Oxygen Oxygen frequency: Continuous Continuous oxygen liters per minute: 2 Suggestions for Active Care Change Position every (hours): 2 Hours to sit in a chair: 2 Times a day to sit in chair: 3 Therapies Weight Bearing: Full weight bearing Physical Therapy: Eval and Treat Occupational Therapy: Eval and Treat Speech Therapy: Eval and Treat Problem/Diagnosis (1) Atrial fibrillation: Status: Acute Code(s): I48.91 - Unspecified atrial fibrillation (2) Right bundle branch block: Status: Acute Code(s): I45.10 - Unspecified right bundle-branch block (3) Wide-complex tachycardia: Status: Acute Code(s): R00.0 - Tachycardia, unspecified Allergies/Procedures Done in Hospital Allergies monosodium glutamate Allergy (Verified 06/13/25 12:58) Abd cramps/diarrhea Penicillins (PCN) Allergy (Verified 06/13/25 12:58) Rash allopurinol Adverse Reaction (Unknown, Verified 06/13/25 12:58) cough morphine Adverse Reaction (Verified 06/13/25 12:58) Other tamsulosin (From Flomax) Adverse Reaction (Verified 06/13/25 12:58) Other Procedures: None Type of Care/Length of Stay Estimated LOS: Convalescent Care Less Than 30 days Type of Care Needed: Skilled Rehab Potential: Fair Prognosis: Fair Additional Orders/Day of Discharge Day of Discharge: 06/24/25 Dietary and Speech Recommendations Dietitian Recommendations/Changes: Will use Jevity 1.5 per [facility] formulary at goal rate 60 ml/hr w/ 165 ml water flush every 4 hours to provide ~ 2160 renetta/ 92 gm pro/ 2084 ml free water/day. Will order Regular diet - cut up meats Continue to follow and monitor for changes in pt nutritional status and make additional rec as indicated Discharge Plan Admission Admit Date/Time: 06/22/25 20:11 Primary Reason for Your Visit: Wide-complex tachycardia Attending Provider: Amelia Quiñonez Primary Care Provider: Tanya Pettit Consulting Providers: Deepak Hall; Ayaz Lewis Instructions Additional Instructions / Restrictions: 1. Continue tube feed as previously ordered 2. Please follow-up with urology in 1 week Discharge Orders/Prescriptions Prescriptions: New acetaminophen 325 mg Tablet 650 mg PO Q6H PRN PRN (Reason: Pain 1-10 Or Fever>100.7) Qty: 0 0RF metoprolol tartrate 50 mg Tablet 50 mg G-tube BID Qty: 0 0RF Continued pantoprazole 40 mg tablet,delayed release (DR/EC) 40 mg PO DAILY Prolia 60 mg/mL syringe 60 mg subcut [id number] Adult 50 Plus Probiotic 4 billion cell capsule 4,000 mmu cells PO DAILY Rx Instructions: administer with a meal montelukast [Singulair] 10 mg tablet 10 mg PO QHS azithromycin 250 mg tablet 250 mg PO QHS rifabutin 150 mg capsule 300 mg PO DAILY prednisone 10 mg Tablet 20 mg PO DAILYCM cholecalciferol (vitamin D3) [Vitamin D3] 25 mcg (1,000 unit) tablet 25 mcg PO DAILY Asmanex Twisthaler 220 mcg/ actuation (60) aerosol powdr breath activated 1 inh inhalation BID sertraline 50 mg tablet 50 mg PO DAILY nystatin 100,000 unit/gram powder 1 applic topical BID ipratropium-albuterol 0.5 mg-3 mg(2.5 mg base)/3 mL solution for nebulization 3 ml inhalation Q4H PRN Patient Comments: [NO ORIGINAL SIG] ferrous sulfate 300 mg (60 mg iron)/5 mL liquid 325 mg feeding tube DAILY folic acid 1 mg tablet 1 mg PO DAILY sulfamethoxazole-trimethoprim [Bactrim DS] 800-160 mg tablet 1 tab PO MOWEFR Rx Instructions: take every MWF ondansetron 4 mg Tablet,Disintegrating 4 mg PO Q6H PRN (Reason: Nausea/Vomiting) Eliquis 5 mg Tablet 5 mg PO BID Qty: 1 0RF Rx Instructions: LAST DOSE 09/22/24 AT 10 AM. ON HOLD FOR ANTICIPATED SURGERY ascorbic acid (vitamin C) 500 mg capsule 500 mg PO DAILY ethambutol 400 mg tablet 1,200 mg PO Q24H Discontinued budesonide [Pulmicort] 0.5 mg/2 mL suspension for nebulization 0.5 mg inhalation BID metoprolol tartrate 25 mg tablet 25 mg PO BID alum-mag hydroxide-simeth 200-200-20 mg/5 mL suspension 30 ml PO Q6H PRN (Reason: indigestion) acetaminophen 325 mg Tablet 650 mg PO Q6H PRN PRN (Reason: Pain Score 1-10) Qty: 1 0RF Referrals / Follow Up: Víctor Lan MD [Med Staff - Active Staff] - Within 2 Weeks (Hospital follow-up) Tanya Pettit DO [Primary Care Provider] - Devon Bullard MD [Med Staff - Active Staff] - Within 1 Week (Follow-up after hospitalization) Disposition Disposition (needs filled in before D/C Order can be placed): [facility]
--- NOTE | 2025-06-24 16:10 | NURSING ---
spoke with Laila at [facility] and report given with all questions answered
== END 2025-06-24 16:48 | disposition skilled nursing facility (03) | DRG 309 ==
PROVIDERS: Admitting Provider Hospitalist; PCP Internal Medicine; Visit Provider Internal Medicine
DX: I47.29 Other ventricular tachycardia (principal); E44.0 Moderate protein-calorie malnutrition; M86.9 Osteomyelitis, unspecified; J96.11 Chronic respiratory failure with hypoxia; E83.39 Other disorders of phosphorus metabolism; F32.A Depression, unspecified; D64.9 Anemia, unspecified; Z93.1 Gastrostomy status; I48.91 Unspecified atrial fibrillation; I44.1 Atrioventricular block, second degree; I45.10 Unspecified right bundle-branch block; K21.9 Gastro-esophageal reflux disease without esophagitis; M19.90 Unspecified osteoarthritis, unspecified site; F41.9 Anxiety disorder, unspecified; R53.81 Other malaise; Z79.899 Other long term (current) drug therapy; Z86.16 Personal history of COVID-19
CPT/HCPCS: 36415; 80048; 81001; 83735; 84100; 85025; 85027; 92610; 93005; 94668; 97165; 97530; 97802; 99252; A4216; G0463

== ENCOUNTER 2025-06-27 16:57 | Inpatient (IN) | payer MEDICARE, BC, SELFPAY ==
[2025-06-27] VITALS (18 sets, daily range): BP systolic 85–125; BP diastolic 41–70; PULSE 69–142; RESP 22–32; TEMP 36.4–36.9; O2SAT 95–100; BMI 25.3
--- NOTE | 2025-06-27 17:08 | PCM.HP.STD ---
HPI - General General Date of Admission: 06/27/25 Date of Service: 06/27/25 Chief Complaint: Malaise HPI Narrative YARON BUTLER, is a 74 M who presents presents from skilled n nursing facility to [facility] with feeling of not feeling well, nausea vomiting fever. Patient was just discharged on 6 on the third with sepsis secondary to UTI. During his hospitalization he had cystoscopy with left ureteral stent placement on 13 June. Patient completed course of antibiotics with meropenem. He had noted wide-complex tachycardia while he was in the hospital but felt by cardiology to be A-fib with underlying right bundle branch block. Patient was discharged to intermediate facility in stable condition of the patient still stated he felt nauseated when he left. So he presented to the outside hospital emergency room where he was febrile with temp of 100.2 Fahrenheit. Urinalysis was concerning for urinary tract infection with his recent hospitalization patient did receive ceftriaxone as well as vancomycin. CT of the abdomen pelvis showed new obstructing 8 mm stone at the left UPJ concerning for likely septic stone. Patient was hypotensive there and did have a right IJ triple-lumen catheter placed and follow-up x-ray showed that was terminating at the superior vena cava/right atrium. Did note mild pulmonary vascular congestion right upper lobe left lower lobe pulmonary edema. Given the patient had just been discharged here 3 days prior, patient was transferred back over here. He was not requiring any pressors at that time. [facility] Medical History Low iron Anemia Depression Dysphagia Gastrostomy in place History of steroid therapy Thyroid nodule Uses wheelchair Gout Prostate disease Antisynthetase syndrome Acute cystitis with hematuria Thyroid cyst Allergic rhinitis Major depressive disorder BPH (benign prostatic hyperplasia) Low back pain Disorder of zinc metabolism GERD (gastroesophageal reflux disease) Osteoporosis Adult failure to thrive Right bundle branch block Hypertension Atrial fibrillation Dysphagia, oropharyngeal Abscess of right lower extremity Personal history of immunosupression therapy Orthostatic hypotension PAF (paroxysmal atrial fibrillation) Steroid dependence Neuropathic pain Antisynthetase syndrome History of shingles Ambulatory dysfunction Shingles Abscess of left thigh BOOP (bronchiolitis obliterans with organizing pneumonia) Wears glasses High cholesterol Easy bruising Back pain Injury of head and neck Blackout Gastric reflux Non-smoker On home oxygen therapy Hoarseness Chronic cough History of echocardiogram Hypertension History of stress test Cardiology follow-up encounter History of atrial fibrillation Atrial fibrillation COVID-19 Osteoporosis Kidney stones Atrial fibrillation RBBB (right bundle branch block) Antisynthetase syndrome Essential hypertension Mixed hyperlipidemia Asthma Interstitial lung disease GERD (gastroesophageal reflux disease) Fatty liver BPH (benign prostatic hyperplasia) Lung nodule Vasovagal syncope Abnormal cardiac CT angiography Home Medications ?Medication ?Instructions ?Recorded ?Last Taken ?Type denosumab 60 mg/mL subcutaneous 60 mg subcut [id number] low calcuim 07/14/21 Unknown History syringe (Prolia) pantoprazole 40 mg tablet,delayed 40 mg PO DAILY reflux 07/14/21 06/12/25 History release lactobacillus combination no.9 4 4,000 mmu cells PO DAILY supplement 01/01/22 06/12/25 History billion cell capsule (Adult 50 Plus Probiotic) montelukast 10 mg tablet 10 mg PO QHS allergies 05/12/23 06/12/25 History (Singulair) apixaban 5 mg tablet (Eliquis) 5 mg PO BID #1 TAB 09/22/24 06/10/25 Rx ascorbic acid (vitamin C) 500 mg 500 mg PO DAILY supple 10/10/24 06/12/25 History capsule prednisone 10 mg tablet 20 mg PO DAILYCM steriod 05/21/25 06/12/25 History cholecalciferol (vitamin D3) 25 25 mcg PO DAILY supplement 05/23/25 06/12/25 History mcg (1,000 unit) tablet (Vitamin D3) ferrous sulfate 300 mg (60 mg 325 mg feeding tube DAILY 05/23/25 06/12/25 History iron)/5 mL oral liquid supplemetn folic acid 1 mg tablet 1 mg PO DAILY supplement 05/23/25 06/12/25 History ipratropium 0.5 mg-albuterol 3 mg 3 ml inhalation Q4H PRN pneumonuia 05/23/25 Unknown History (2.5 mg base)/3 mL nebulization soln mometasone 220 mcg/actuation(60 1 inh inhalation BID sob 05/23/25 06/12/25 History doses) breath activated powder inhaler (Asmanex Twisthaler) nystatin 100,000 unit/gram topical 1 applic topical BID yeast 05/23/25 06/12/25 History powder ondansetron 4 mg disintegrating 4 mg PO Q6H PRN Nausea/Vomiting 05/23/25 05/20/25 22:00 History tablet 4 mg sertraline 50 mg tablet 50 mg PO DAILY depression 05/23/25 06/12/25 History sulfamethoxazole 800 1 tab PO MOWEFR ATB 05/23/25 06/11/25 History mg-trimethoprim 160 mg tablet (Bactrim DS) ethambutol 400 mg tablet 1,200 mg PO Q24H n/a 06/11/25 06/12/25 History azithromycin 250 mg tablet 250 mg PO QHS antibiotic 06/12/25 Unknown History rifabutin 150 mg capsule 300 mg PO DAILY antibacterial 06/12/25 06/12/25 History acetaminophen 325 mg tablet 650 mg (2 x 325 mg) PO Q6H PRN PRN 06/24/25 Unknown Rx Pain 1-10 Or Fever>100.7 #0 tabs metoprolol tartrate 50 mg tablet 50 mg G-tube BID #0 tabs 06/24/25 Unknown Rx Allergy/AdvReac Type Severity Reaction Status Date / Time monosodium glutamate Allergy Abd Verified 06/13/25 12:58 cramps/diarrhea Penicillins (PCN) Allergy Rash Verified 06/13/25 12:58 allopurinol AdvReac Unknown cough Verified 06/13/25 12:58 morphine AdvReac Other Verified 06/13/25 12:58 tamsulosin (From Flomax) AdvReac Other Verified 06/13/25 12:58 Family History Grandfather CVA (cerebral vascular accident) Grandmother Congestive heart failure Grandmother Cardiac pacemaker in situ Mother Heart disease Hypertension Father Heart disease Cardiac arrhythmia Surgical History History of renal stent History of incision and drainage Hx of cystoscopy History of umbilical hernia repair History of inguinal hernia repair Social History household members: spouse Smoking Status: Never smoker alcohol intake: current details: Rare substance use type: does not use caffeine: Yes Type: coffee Number of servings: 1 ROS ROS Narrative Incontinent. History of bilateral foot drop. Patient is on oxygen chronically. Denies any shortness of breath. All review of systems were negative except as mentioned above in the history of present illness and the other review of systems. Vital Signs Vital Signs Vital Signs: Weight Weight: 80.1 kg Body Mass Index (BMI) 25.3 Physical Exam Narrative POCUS: Indication is for sepsis. IVC was visualized and was limited due to body habitus but did show that the IVC was nondilated and collapsible. Unable to obtain adequate measurements due to his motion variability. And parasternal long axis as well as apical view showed that the heart was hyperdynamic. No pericardial effusions were noted. Pulmonary exam patient did have B-lines anteriorly as well as laterally. Try to look at posteriorly the patient was unable to sit up to do so due to weakness. Const alert and oriented x3 Constitutional Narrative: Listless. Afebrile. HEENT normocephalic and head/scalp atraumatic Eyes Eyes Narrative: No icterus. Neck no lymphadenopathy and no JVD Resp Resp Narrative: Bilateral crackles Cardio Cardio Narrative: Irregularly irregular GI normal to inspection, nondistended, normoactive bowel sounds, soft to palpation, non-tender and non-distended Extremity normal to inspection, full ROM and no clubbing, cyanosis or edema Neuro Neuro Narrative: Bruising on upper extremities. Bilateral plantar flexion contractures Sensorium / Orientation: awake and alert Speech: speech normal Psych Psych Narrative: Flat affect Results Lab / Micro Data Attestation: I reviewed the patient's lab results. Lab results narrative: EKG showed A-fib with RVR with heart rate of 132. Incomplete right bundle branch block. CBC with differential showed white count 23.2, hemoglobin 10.1, platelets 631. CMP: Potassium 143, chloride 105, CO2 31, creatinine 1.11, calcium 9.1, total bilirubin 0.3, ALT 25, D-dimer 570, lactate of 3.2 troponins 9.6, C. difficile negative, COVID-19 negative, influenza negative Urinalysis the gravity of 1.015, 16-25 white blood cells, 500 leuk esterase 1+ bacteria Chest x-ray showed mild vascular congestion, right upper lobe and left lower lobe pulmonary edema and follow-up x-ray post IVC showed the right IJ catheter present with tip terminating at the superior vena cava CT of the abdomen pelvis showed multiple bilateral renal calculi. 8 mm calculus at the left UPJ. Perinephric and Jero ureteral fat stranding. Assessment & Plan Assessment/Plan (1) Sepsis: QUALIFIERS: Sepsis type: sepsis due to unspecified organism Sepsis acute organ dysfunction status: with acute organ dysfunction Severe sepsis acute organ dysfunction type: encephalopathy Severe sepsis shock status: without septic shock Qualified Code(s): A41.9 - Sepsis, unspecified organism; R65.20 - Severe sepsis without septic shock; G93.41 - Metabolic encephalopathy PLAN: Present at outside institution. Was temporarily on norepinephrine. Did have a right IJ triple-lumen catheter placed. Secondary to UTI though the urinalysis is rather benign but his CAT scan did show perinephric stranding and with the stone in place notes really busy concern. Questionable pneumonia as well but patient has chronic lung disease so it is unclear if this is findings consistent with that or if there is a new infectious process in his lungs. Follow-up cultures. Continue antibiotics at the outside is 2 years to ceftriaxone and vancomycin. I will have him on meropenem which is what he was on last time he is here as well as vancomycin. I think complicating this picture is he does take prednisone chronically. This is due to an underlying lung disease due to what patient describes as antisynthetase disease. He sees Dr. Landon for this. Will add IV hydrocortisone for stress dose purposes. (2) UTI (urinary tract infection): PLAN: Antibiotics as above. Follow-up cultures from outside institution. With a left UPJ stone in place, will consult urology for evaluation. (3) Pneumonia: PLAN: Pulmonary toilet. Suspect gram-negative. Continue meropenem and vancomycin for now. Check Legionella and strep antigens. Check sputum culture. (4) Paroxysmal atrial fibrillation with RVR: PLAN: Secondary to sepsis. Continue with metoprolol as blood pressure and heart rate tolerate. Will have IV metoprolol as well. Cannot rule out potential need for amiodarone if this does persist and his pressure is either low or on the lower end of normal. Continue anticoagulation with apixaban. PLAN: Plan Chronic malnutrition: Patient uses PEG tube for supplementing. Patient previously was on a regular diet with cut up meats and will continue with that. Consult nutrition for further recommendations. Paraplegia: Issues due to his back but patient does have plantarflexion contractures bilaterally. PT OT evaluate and treat. Chronic lung disease. 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 Follow-up with pulmonary as outpatient. VTE prophylaxis: Not indicated patient is on apixaban. CODE STATUS: Per previous records patient is full code. Charges/Coding Visit Charges Inpatient E&M: 14012 Init Hosp L3
--- NOTE | 2025-06-27 17:25 | ECHOLC_ITS ---
Reason For Study Reason For Study: AFib Procedure This was a limited 2D transthoracic echocardiogram. Contrast injection was performed. Exam performed portable in ICU/CCU. Left Ventricle Normal LV size. Left ventricular systolic function is normal. The left ventricular ejection fraction is 55 %. No regional wall motion abnormalities noted. Right Ventricle Normal RV size. Normal systolic function. Atria Normal left atrium. Normal right atrium. Mitral Valve There is moderate mitral annular calcification. Tricuspid Valve Normal tricuspid valve. Aortic Valve Trisinus/trileaflet aortic valve. Mild focal aortic valve calcification. Great Vessels Normal aortic root. The pulmonary artery is normal size. Pericardium/Pleural No pericardial effusion. Medication Diluted definity 1ml given slow IV push to enhance endocardial definition. MMode/2D Measurements & Calculations LVIDd: 4.8 cm IVSd: 1.1 cm LAV(MOD- bp): 50.3 ml LVIDs: 3.1 cm LVPWd: 0.92 cm LAV(MOD- bp) Indexed: 25.3 ml/m2 RVDd: 4.2 cm FS: 35.7 % LAV(MOD- sp2): 38.7 ml LAV(MOD- sp4): 56.1 ml SV(MOD-sp4): 78.0 ml SV(sp4- el): 85.9 ml LVAd ap4: 36.6 cm2 LVLd ap4: 8.6 cm SI(MOD-sp4): 39.3 ml/m2 EDV(MOD-sp4): 126.1 ml EDV(sp4-el): 132.3 ml LVAs ap4: 19.5 cm2 LVLs ap4: 7.0 cm ESV(MOD-sp4): 48.1 ml ESV(sp4-el): 46.4 ml EF(MOD-sp4): 61.8 % EF(sp4-el): 64.9 % LA A4 area: 20.7 cm2 Doppler Measurements & Calculations Ao V2 max: 179.6 cm/sec LV V1 max: 101.2 cm/sec TR max juan manuel: 320.2 cm/sec Ao max P.9 mmHg LV V1 max P.1 mmHg TR max P.0 mmHg ECHO/Echo Limited w/Contrast Interpretation Summary Normal LV size. Left ventricular systolic function is normal. The left ventricular ejection fraction is 55 %. There is moderate mitral annular calcification. Contrast injection was performed. Ordering Physician: Wagner Portillo Referring Physician: Wagner Portillo Performed By: Calvin Corral RCS
[2025-06-27] MEDS: 0.9% Normal Saline (1000mL) 1,000 ML 200 ML IV (17:53)
--- NOTE | 2025-06-27 18:57 | PCM.RX.CS ---
Consult Antibiotic Management Pharmacy has been consulted to manage selected antibiotic: Vancomycin Type of Intervention Type of Consult: New start Suspected Infection Suspected Infection: Sepsis Microbiology Microbiology: Microbiology 06/27/25 17:40 Urine, Clean Catch Legionella Antigen - Final 06/27/25 17:40 Urine, Clean Catch Streptococcus pneumoniae Antigen (M - Final Goal Trough Goal Trough: 15-20 mcg/mL Pharmacy Plan for Drug Dosing Pharmacy Plan for Drug Dosing: NEW START IV VANCOMYCIN Consulting Physician: Dr. Portillo Indication: Sepsis Goal Trough: 15-20 SrCr: 1.11 (labs from outside facility this morning, 06/27 @0900) CrCl: 64 mL/min Comments: patient had initial dose of vancomycin 2000mg IV x1 at outside facility 06/27 @1107 per nursing staff Vancomycin Dose: 1000mg IV Q12hr to start 06/27/25 @2300 Pending Level: 06/28/25 @2230, prior to 4th total dose of vancomycin per protocol Pharmacy Service will continue to monitor and adjust dosing as required.
[2025-06-27] MEDS: 0.9 % NaCl (Sterile) Posiflush 10 mL IV (19:57)
[2025-06-27] MEDS: APIXABAN 5 MG TABLET GT (20:53)
[2025-06-27] MEDS: Smx/Tmp Suspension 20 ML/UDC UDC GT (20:53)
[2025-06-27] MEDS: Meropenem 1 GM in 0.9% Normal Saline (100mL MB+) 100 ML IV (20:54)
[2025-06-27] MEDS: Vancomycin HCl 1,000 MG in 0.9% Normal Saline (250mL Bag) 250 ML 250 MG IV (22:49)
[2025-06-28] VITALS (57 sets, daily range): BP systolic 69–147; BP diastolic 43–131; PULSE 66–129; RESP 15–26; TEMP 36.4–36.7; O2SAT 90–100; BMI 25.6
[2025-06-28 04:24] LABS: Hematocrit 28.9 % (40-54); Hemoglobin 8.2 g/dL (13.0-16.5); Immature Granulocytes Count 0.280 X10^3/uL (0.0-0.0); Mean Corp Hgb Conc 28.4 g/dL (32-36); Mean Corpuscular Volume 87.6 fL (80-94); Mean Platelet Vol. 9.5 fl (6.2-12.0); NRBC Flagged by Analyzer 0 % (0-5); POSITIVE DIFFERENTIAL YES; Platelet Count 468 K/mm3 (150-450); RBC Distribution Width CV 17.6 % (11.6-14.6); RBC Distribution Width SD 56.4 fl (35.1-43.9); Red Blood Count 3.30 M/mm3 (4.6-6.2); White Blood Count 24.8 K/mm3 (4.4-11.0)
[2025-06-28 04:45] LABS: AST(SGOT) 19 U/L (<=37); Alanine Aminotransfer ALT/SGPT 12 U/L (<=46); Albumin, Serum 2.8 g/dL (3.4-4.8); Alkaline Phosphatase 70 U/L (40-129); Anion Gap 8 (5-15); BUN 26 mg/dL (4-19); BUN/Creat Ratio 21.0 RATIO (10-20); Calcium,Total 8.2 mg/dL (7.6-11.0); Carbon Dioxide 25.2 mmol/L (21.0-32.0); Chloride 108 mmol/L (98-108); Estimated Creatinine Clearance 55.60 ml/min (50-250); Globulin 3.4 g/dL (2.2-4.2); Glucose 112 mg/dL (70-99); Potassium 5.7 mmol/L (3.3-5.1)
[2025-06-28 05:08] LABS: Differential Indicated SCAN CRITERIA MET
[2025-06-28 05:09] LABS: Differential Comment SCANNED
[2025-06-28 05:35] LABS: Anion Gap 7 (5-15); BUN 28 mg/dL (4-19); BUN/Creat Ratio 21.5 RATIO (10-20); Calcium,Total 7.9 mg/dL (7.6-11.0); Carbon Dioxide 26.1 mmol/L (21.0-32.0); Chloride 107 mmol/L (98-108); Estimated Creatinine Clearance 53.86 ml/min (50-250); Glucose 112 mg/dL (70-99); Potassium 5.6 mmol/L (3.3-5.1)
[2025-06-28] MEDS: Meropenem 1 GM in 0.9% Normal Saline (100mL MB+) 100 ML IV ×3 (06:28→21:23)
[2025-06-28] MEDS: Insulin Lispro 5 UNIT in Syringe 0 ML 6 UNIT IV (06:33)
--- NOTE | 2025-06-28 06:36 | PN.HOSP_ITS ---
Hospitalist Note Patient with BMP this morning with potassium 5.6 significantly elevated from prior. Repeat BMP obtained to be certain and repeat potassium 5.7, n onhemolyzed. Hyperkalemic protocol initiated and will plan repeat BMP to assure decreasing.
[2025-06-28] MEDS: Albuterol *CONC* 2.5mg/0.5mL VIAL.NEB. 10 MG INHALATION (07:04)
--- NOTE | 2025-06-28 07:43 | CON.PCM_ITS ---
Assessment & Plan Assessment/Plan (1) Paroxysmal atrial fibrillation with RVR: (2) Pneumonia: (3) UTI (urinary tract infection): (4) Ureteral calculus, left: PLAN: Recurrence of kidney stone and obstruction this certainly can happen especially with infected stones because these can grow rapidly when he is colonized with a very resistant bacteria stone forming bacteria and had the stone come back again pretty fast so placed a stent not safe to laser at this point what the bring him back after the stent to laser the stone later on. HPI Consult Data Date of Consult: 06/28/25 HPI Narrative Reason for Consultation: Chronic UPJ obstruction infected stones HPI Narrative: YARON BUTLER, is a 74 M who presents back to [facility] he has a history of infectious stones in the left kidney he underwent ureteroscopy and laser of all the stones in the small little pieces and then I saw him in the office the stones are not visible on KUB so I did take out the stent and now he presented back to [facility] another CAT scan was done reported an 8 mm stone in the left UPJ obstruction area but will put him on the schedule for today for cystoscopy and left stent placement, n.p.o. for procedure [facility] Medical History Low iron Anemia Depression Dysphagia Gastrostomy in place History of steroid therapy Thyroid nodule Uses wheelchair Gout Prostate disease Antisynthetase syndrome Acute cystitis with hematuria Thyroid cyst Allergic rhinitis Major depressive disorder BPH (benign prostatic hyperplasia) Low back pain Disorder of zinc metabolism GERD (gastroesophageal reflux disease) Osteoporosis Adult failure to thrive Right bundle branch block Hypertension Atrial fibrillation Dysphagia, oropharyngeal Abscess of right lower extremity Personal history of immunosupression therapy Orthostatic hypotension PAF (paroxysmal atrial fibrillation) Steroid dependence Neuropathic pain Antisynthetase syndrome History of shingles Ambulatory dysfunction Shingles Abscess of left thigh BOOP (bronchiolitis obliterans with organizing pneumonia) Wears glasses High cholesterol Easy bruising Back pain Injury of head and neck Blackout Gastric reflux Non-smoker On home oxygen therapy Hoarseness Chronic cough History of echocardiogram Hypertension History of stress test Cardiology follow-up encounter History of atrial fibrillation Atrial fibrillation COVID-19 Osteoporosis Kidney stones Atrial fibrillation RBBB (right bundle branch block) Antisynthetase syndrome Essential hypertension Mixed hyperlipidemia Asthma Interstitial lung disease GERD (gastroesophageal reflux disease) Fatty liver BPH (benign prostatic hyperplasia) Lung nodule Vasovagal syncope Abnormal cardiac CT angiography Home Medications ?Medication ?Instructions ?Recorded ?Last Taken ?Type denosumab 60 mg/mL subcutaneous 60 mg subcut [id number] low calcuim 07/14/21 Unknown History syringe (Prolia) pantoprazole 40 mg tablet,delayed 40 mg PO DAILY reflu x 07/14/21 06/26/25 History release lactobacillus combination no.9 4 4,000 mmu cells PO DA ROBERT supplement 01/01/22 06/26/25 History billion cell capsule (Adult 50 Plus Probiotic) montelukast 10 mg tablet 10 mg feeding tube QHS aller gies 05/12/23 06/26/25 History (Singulair) ascorbic acid (vitamin C) 500 mg 500 mg PO DAILY suppl e 10/10/24 06/12/25 History capsule prednisone 10 mg tablet 20 mg feeding tube DAILYCM s teriod 05/21/25 06/26/25 History cholecalciferol (vitamin D3) 25 25 mcg feeding tube DA ROBERT 05/23/25 06/26/25 History mcg (1,000 unit) tablet (Vitamin supplement D3) ferrous sulfate 300 mg (60 mg 325 mg feeding tube CALLIE Y 05/23/25 06/26/25 History iron)/5 mL oral liquid supplemetn folic acid 1 mg tablet 1 mg feeding tube DAILY supp lement 05/23/25 06/26/25 History ipratropium 0.5 mg-albuterol 3 mg 3 ml inhalation Q4H PRN pneumonuia 05/23/25 06/26/25 History (2.5 mg base)/3 mL nebulization soln mometasone 220 mcg/actuation(60 1 inh inhalation BID s ob 05/23/25 06/26/25 History doses) breath activated powder inhaler (Asmanex Twisthaler) nystatin 100,000 unit/gram topical 1 applic topical BI D yeast 05/23/25 06/26/25 History powder ondansetron 4 mg disintegrating 4 mg PO Q6H PRN Nausea /Vomiting 05/23/25 06/23/25 History tablet sertraline 50 mg tablet 50 mg feeding tube DAILY dep ression 05/23/25 06/26/25 History sulfamethoxazole 800 1 tab feeding tube MOWEFR AT B 05/23/25 06/25/25 History mg-trimethoprim 160 mg tablet (Bactrim DS) ethambutol 400 mg tablet 1,200 mg feeding tube Q24H n /a 06/11/25 06/26/25 History azithromycin 250 mg tablet 250 mg feeding tube QHS ant ibiotic 06/12/25 06/26/25 History rifabutin 150 mg capsule 300 mg feeding tube DAILY 06/26/25 History antibacterial metoprolol tartrate 50 mg tablet 50 mg G-tube BID #0 t abs 06/24/25 06/26/25 Rx acetaminophen 325 mg tablet 650 mg feeding tube Q6H AR N PRN 06/27/25 Unknown History Pain 1-10 Or Fever>100.7 apixaban 5 mg tablet (Eliquis) 5 mg feeding tube BID A fib 06/27/25 06/26/25 History nutritional supplements 0.08 60 ml feeding tube .24 Nu trition 06/27/25 Unknown History gram-2 kcal/mL liquid for tube feed (Nutren 2.0) Allergy/AdvReac Type Severity Reaction Status Date / Time monosodium glutamate Allergy Abd Verified 06/13/25 12:58 cramps/diarrhea Penicillins (PCN) Allergy Rash Verified 06/13/25 12:58 allopurinol AdvReac Unknown cough Verified 06/13/25 12:58 morphine AdvReac Other Verified 06/13/25 12:58 tamsulosin (From Flomax) AdvReac Other Verified 06/13/25 12:58 Family History Grandfather CVA (cerebral vascular accident) Grandmother Congestive heart failure Grandmother Cardiac pacemaker in situ Mother Heart disease Hypertension Father Heart disease Cardiac arrhythmia Surgical History History of renal stent History of incision and drainage Hx of cystoscopy History of umbilical hernia repair History of inguinal hernia repair Social History household members: spouse Smoking Status: Never smoker alcohol intake: current details: Rare substance use type: does not use caffeine: Yes Type: coffee Number of servings: 1 Physical Exam Const alert and oriented x3 General Appearance: cooperative HEENT normocephalic and head/scalp atraumatic Eyes PERRL and EOMs intact bilaterally Neck supple, no JVD and no carotid bruits Resp normal respiratory effort, normal air movement and clear to auscultation bilaterally Cardio regular rate and no murmurs GI normal to inspection, nondistended, normoactive bowel sounds and soft to palpation Extremity normal capillary refill General Extremity: no tenderness to palpation of joints or extremities; Negative for edema Skin no rashes or lesions noted and no wounds General Skin Exam: no breakdown Neuro CN's II-XII intact bilaterally Psych affect normal Appearance: appropriate Lab / Micro Data 06/28/25 04:15 06/28/25 05:07 Labs: Laboratory Results - last 24 hr 06/27/25 17:35: Lactic Acid 1.5 06/28/25 04:15: WBC 24.8 H, RBC 3.30 L, Hgb 8.2 L, Hct 28.9 L, MCV 87.6, MCH 24.8 L, MCHC 28.4 L, RDW Std Deviation 56.4 H, RDW Coeff of Opal 17.6 H, Plt Count 468 H, MPV 9.5, Immature Gran % (Auto) 1.100 H, Neut % (Auto) 95.5 H, L ymph % (Auto) 0.8 L, Jerome % (Auto) 2.4, Eos % (Auto) 0.0, Baso % (Auto) 0.2, A bsolute Neuts (auto) 23.7 H, Absolute Lymphs (auto) 0.19 L, Nucleated RBC % 0, Differential Comment SCANNED, Platelet Estimate MOD INC, Sodium 142, Potassium 5.7 H, Chloride 108, Carbon Dioxide 25.2, Anion Gap 8, BUN 26 H, Creatinine 1.24 H, Estim Creat Clear Calc 55.60, Est GFR (MDRD) Non-Af 62, BUN/Creatinine Ratio 21.0 H, Glucose 112 H, Calcium 8.2, Total Bilirubin 0.29, AST 19, ALT 12, Alkaline Phosphatase 70, Total Protein 6.2, Albumin 2.8 L, Globulin 3.4, A lbumin/Globulin Ratio 0.8 L 06/28/25 05:07: Sodium 140, Potassium 5.6 H, Chloride 107, Carbon Dioxide 26.1, Anion Gap 7, BUN 28 H, Creatinine 1.28 H, Estim Creat Clear Calc 53.86, Est GFR (MDRD) Non-Af 59 L, BUN/Creatinine Ratio 21.5 H, Glucose 112 H, Calcium 7.9 Micro: Microbiology 06/27/25 17:40 Urine, Clean Catch Legionella Antigen - Final 06/27/25 17:40 Urine, Clean Catch Streptococcus pneumoniae Antigen (M - Final
[2025-06-28 09:09] LABS: Anion Gap 10 (5-15); BUN 27 mg/dL (4-19); BUN/Creat Ratio 20.2 RATIO (10-20); Calcium,Total 8.1 mg/dL (7.6-11.0); Carbon Dioxide 24.2 mmol/L (21.0-32.0); Chloride 107 mmol/L (98-108); Estimated Creatinine Clearance 51.84 ml/min (50-250); Glucose 149 mg/dL (70-99); Potassium 4.5 mmol/L (3.3-5.1)
--- NOTE | 2025-06-28 09:58 | PN.URO_ITS ---
Subjective Subjective BP running v low to high risk for stent probably better to a left nephrostomy tube place plus with infection stones will allow for percuteneous procedure later on to remove all stone already lasered but these are infections stones and if not completely removed will come back Objective Data Objective Data Vital Signs: Vital Signs Temp Pulse Resp BP Pulse Ox O2 Del Method O2 Flow Rate 97.9 F 92 17 79/51 L 98 Nasal Cannula 3 06/28/25 08:00 06/28/25 09:46 06/28/25 09:00 06/28/25 09:46 06/28/25 09:00 06/28/25 09:00 06/28/25 09:00 Oxygen Flow Rate (L/min) 3 Oxygen Delivery Method Nasal Cannula Weight: 81.1 kg Body Mass Index (BMI) 25.6 Intake & Output: Intake and Output for Last 24 Hours 06/26/25 06/27/25 06/28/25 23:59 23:59 23:59 Intake Total 1000 / 1000 890 / 890 Output Total 250 / 250 150 / 150 Balance 750 / 750 740 / 740 Lab / Micro Data 06/28/25 04:15 06/28/25 08:30 Labs: Laboratory Results - last 24 hr 06/27/25 17:35: Lactic Acid 1.5 06/28/25 04:15: WBC 24.8 H, RBC 3.30 L, Hgb 8.2 L, Hct 28.9 L, MCV 87.6, MCH 24.8 L, MCHC 28.4 L, RDW Std Deviation 56.4 H, RDW Coeff of Opal 17.6 H, Plt Count 468 H, MPV 9.5, Immature Gran % (Auto) 1.100 H, Neut % (Auto) 95.5 H, L ymph % (Auto) 0.8 L, [place] % (Auto) 2.4, Eos % (Auto) 0.0, Baso % (Auto) 0.2, A bsolute Neuts (auto) 23.7 H, Absolute Lymphs (auto) 0.19 L, Nucleated RBC % 0, Differential Comment SCANNED, Platelet Estimate MOD INC, Sodium 142, Potassium 5.7 H, Chloride 108, Carbon Dioxide 25.2, Anion Gap 8, BUN 26 H, Creatinine 1.24 H, Estim Creat Clear Calc 55.60, Est GFR (MDRD) Non-Af 62, BUN/Creatinine Ratio 21.0 H, Glucose 112 H, Calcium 8.2, Total Bilirubin 0.29, AST 19, ALT 12, Alkaline Phosphatase 70, Total Protein 6.2, Albumin 2.8 L, Globulin 3.4, A lbumin/Globulin Ratio 0.8 L 06/28/25 05:07: Sodium 140, Potassium 5.6 H, Chloride 107, Carbon Dioxide 26.1, Anion Gap 7, BUN 28 H, Creatinine 1.28 H, Estim Creat Clear Calc 53.86, Est GFR (MDRD) Non-Af 59 L, BUN/Creatinine Ratio 21.5 H, Glucose 112 H, Calcium 7.9 06/28/25 08:30: Sodium 141, Potassium 4.5, Chloride 107, Carbon Dioxide 24.2, Anion Gap 10, BUN 27 H, Creatinine 1.33 H, Estim Creat Clear Calc 51.84, Est GFR (MDRD) Non-Af 57 L, BUN/Creatinine Ratio 20.2 H, Glucose 149 H, Calcium 8.1 Micro: Microbiology 06/27/25 17:40 Urine, Clean Catch Legionella Antigen - Final 06/27/25 17:40 Urine, Clean Catch Streptococcus pneumoniae Antigen (M - Final
[2025-06-28] MEDS: 0.9% Normal Saline (1000mL) 1,000 ML 500 ML IV (10:04)
[2025-06-28] MEDS: Norepinephrine 8 MG in 0.9% Normal Saline (250mL Bag) 242 ML 9.4 MG CONT INF (10:20)
[2025-06-28] MEDS: Vancomycin HCl 1,000 MG in 0.9% Normal Saline (250mL Bag) 250 ML 250 MG IV (10:26)
--- NOTE | 2025-06-28 10:29 | CON.PCM.ID_ITS ---
Assessment & Plan Assessment/Plan (1) UTI (urinary tract infection): (2) Septic shock: PLAN: Reviewed updated [facility] records, no bcx or ucx sent there; cdiff was neg. Urology following for infected stone. On empiric vanc/marry. Tolerated ceftriaxone here recently. 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 With acute illness, holding his bactrim proph. Will follow, thank you HPI Consult Data Date of Consult: 06/28/25 HPI Narrative Reason for Consultation: septic shock HPI Narrative: YARON BUTLER, is a 74 M who presented to [facility] 06/27, transferred here. Was at [facility], reports several days n/v, fatigue, fever, not feeling well. Had recent admit here with L ureteral stent placed. Admitted here on vanc/marry, feeling a little better this AM. No abd pain. Has been on three drug therapy for M. kansasii R upper leg infection for at least several months. Full ROS performed and neg except as noted above. [facility] Medical History Low iron Anemia Depression Dysphagia Gastrostomy in place History of steroid therapy Thyroid nodule Uses wheelchair Gout Prostate disease Antisynthetase syndrome Acute cystitis with hematuria Thyroid cyst Allergic rhinitis Major depressive disorder BPH (benign prostatic hyperplasia) Low back pain Disorder of zinc metabolism GERD (gastroesophageal reflux disease) Osteoporosis Adult failure to thrive Right bundle branch block Hypertension Atrial fibrillation Dysphagia, oropharyngeal Abscess of right lower extremity Personal history of immunosupression therapy Orthostatic hypotension PAF (paroxysmal atrial fibrillation) Steroid dependence Neuropathic pain Antisynthetase syndrome History of shingles Ambulatory dysfunction Shingles Abscess of left thigh BOOP (bronchiolitis obliterans with organizing pneumonia) Wears glasses High cholesterol Easy bruising Back pain Injury of head and neck Blackout Gastric reflux Non-smoker On home oxygen therapy Hoarseness Chronic cough History of echocardiogram Hypertension History of stress test Cardiology follow-up encounter History of atrial fibrillation Atrial fibrillation COVID-19 Osteoporosis Kidney stones Atrial fibrillation RBBB (right bundle branch block) Antisynthetase syndrome Essential hypertension Mixed hyperlipidemia Asthma Interstitial lung disease GERD (gastroesophageal reflux disease) Fatty liver BPH (benign prostatic hyperplasia) Lung nodule Vasovagal syncope Abnormal cardiac CT angiography Home Medications ?Medication ?Instructions ?Recorded ?Last Taken ?Type denosumab 60 mg/mL subcutaneous 60 mg subcut [id number] low calcuim 07/14/21 Unknown History syringe (Prolia) pantoprazole 40 mg tablet,delayed 40 mg PO DAILY reflu x 07/14/21 06/26/25 History release lactobacillus combination no.9 4 4,000 mmu cells PO DA ROBERT supplement 01/01/22 06/26/25 History billion cell capsule (Adult 50 Plus Probiotic) montelukast 10 mg tablet 10 mg feeding tube QHS aller gies 05/12/23 06/26/25 History (Singulair) ascorbic acid (vitamin C) 500 mg 500 mg PO DAILY suppl e 10/10/24 06/12/25 History capsule prednisone 10 mg tablet 20 mg feeding tube DAILYCM s teriod 05/21/25 06/26/25 History cholecalciferol (vitamin D3) 25 25 mcg feeding tube DA ROBERT 05/23/25 06/26/25 History mcg (1,000 unit) tablet (Vitamin supplement D3) ferrous sulfate 300 mg (60 mg 325 mg feeding tube CALLIE Y 05/23/25 06/26/25 History iron)/5 mL oral liquid supplemetn folic acid 1 mg tablet 1 mg feeding tube DAILY supp lement 05/23/25 06/26/25 History ipratropium 0.5 mg-albuterol 3 mg 3 ml inhalation Q4H PRN pneumonuia 05/23/25 06/26/25 History (2.5 mg base)/3 mL nebulization soln mometasone 220 mcg/actuation(60 1 inh inhalation BID s ob 05/23/25 06/26/25 History doses) breath activated powder inhaler (Asmanex Twisthaler) nystatin 100,000 unit/gram topical 1 applic topical BI D yeast 05/23/25 06/26/25 History powder ondansetron 4 mg disintegrating 4 mg PO Q6H PRN Nausea /Vomiting 05/23/25 06/23/25 History tablet sertraline 50 mg tablet 50 mg feeding tube DAILY dep ression 05/23/25 06/26/25 History sulfamethoxazole 800 1 tab feeding tube MOWEFR AT B 05/23/25 06/25/25 History mg-trimethoprim 160 mg tablet (Bactrim DS) ethambutol 400 mg tablet 1,200 mg feeding tube Q24H n /a 06/11/25 06/26/25 History azithromycin 250 mg tablet 250 mg feeding tube QHS ant ibiotic 06/12/25 06/26/25 History rifabutin 150 mg capsule 300 mg feeding tube DAILY 06/26/25 History antibacterial metoprolol tartrate 50 mg tablet 50 mg G-tube BID #0 t abs 06/24/25 06/26/25 Rx acetaminophen 325 mg tablet 650 mg feeding tube Q6H SD N PRN 06/27/25 Unknown History Pain 1-10 Or Fever>100.7 apixaban 5 mg tablet (Eliquis) 5 mg feeding tube BID A fib 06/27/25 06/26/25 History nutritional supplements 0.08 60 ml feeding tube .24 Nu trition 06/27/25 Unknown History gram-2 kcal/mL liquid for tube feed (Nutren 2.0) Allergy/AdvReac Type Severity Reaction Status Date / Time monosodium glutamate Allergy Abd Verified 06/13/25 12:58 cramps/diarrhea Penicillins (PCN) Allergy Rash Verified 06/13/25 12:58 allopurinol AdvReac Unknown cough Verified 06/13/25 12:58 morphine AdvReac Other Verified 06/13/25 12:58 tamsulosin (From Flomax) AdvReac Other Verified 06/13/25 12:58 Family History Grandfather CVA (cerebral vascular accident) Grandmother Congestive heart failure Grandmother Cardiac pacemaker in situ Mother Heart disease Hypertension Father Heart disease Cardiac arrhythmia Surgical History History of renal stent History of incision and drainage Hx of cystoscopy History of umbilical hernia repair History of inguinal hernia repair Social History household members: spouse Smoking Status: Never smoker alcohol intake: current details: Rare substance use type: does not use caffeine: Yes Type: coffee Number of servings: 1 Physical Exam Const alert, oriented x3 and no apparent distress General Appearance: cooperative HEENT normocephalic and head/scalp atraumatic Eyes PERRL and EOMs intact bilaterally Neck supple and No nodes Resp normal air movement and clear to auscultation bilaterally Cardio Rate: tachycardic GI soft to palpation, non-tender and non-distended Extremity General Extremity: edema Skin no rashes or lesions noted Neuro CN's II-XII intact bilaterally Medical Records Data Attestation: I reviewed the patient's medical records Lab / Micro Data 06/28/25 04:15 06/28/25 08:30 Labs: Laboratory Results - last 24 hr 06/27/25 17:35: Lactic Acid 1.5 06/28/25 04:15: WBC 24.8 H, RBC 3.30 L, Hgb 8.2 L, Hct 28.9 L, MCV 87.6, MCH 24.8 L, MCHC 28.4 L, RDW Std Deviation 56.4 H, RDW Coeff of Opal 17.6 H, Plt Count 468 H, MPV 9.5, Immature Gran % (Auto) 1.100 H, Neut % (Auto) 95.5 H, L ymph % (Auto) 0.8 L, [place] % (Auto) 2.4, Eos % (Auto) 0.0, Baso % (Auto) 0.2, A bsolute Neuts (auto) 23.7 H, Absolute Lymphs (auto) 0.19 L, Nucleated RBC % 0, Differential Comment SCANNED, Platelet Estimate MOD INC, Sodium 142, Potassium 5.7 H, Chloride 108, Carbon Dioxide 25.2, Anion Gap 8, BUN 26 H, Creatinine 1.24 H, Estim Creat Clear Calc 55.60, Est GFR (MDRD) Non-Af 62, BUN/Creatinine Ratio 21.0 H, Glucose 112 H, Calcium 8.2, Total Bilirubin 0.29, AST 19, ALT 12, Alkaline Phosphatase 70, Total Protein 6.2, Albumin 2.8 L, Globulin 3.4, A lbumin/Globulin Ratio 0.8 L 06/28/25 05:07: Sodium 140, Potassium 5.6 H, Chloride 107, Carbon Dioxide 26.1, Anion Gap 7, BUN 28 H, Creatinine 1.28 H, Estim Creat Clear Calc 53.86, Est GFR (MDRD) Non-Af 59 L, BUN/Creatinine Ratio 21.5 H, Glucose 112 H, Calcium 7.9 06/28/25 08:30: Sodium 141, Potassium 4.5, Chloride 107, Carbon Dioxide 24.2, Anion Gap 10, BUN 27 H, Creatinine 1.33 H, Estim Creat Clear Calc 51.84, Est GFR (MDRD) Non-Af 57 L, BUN/Creatinine Ratio 20.2 H, Glucose 149 H, Calcium 8.1 Micro: Microbiology 06/27/25 17:40 Urine, Clean Catch Legionella Antigen - Final 06/27/25 17:40 Urine, Clean Catch Streptococcus pneumoniae Antigen (M - Final
--- NOTE | 2025-06-28 11:25 | PRE.ANES_ITS ---
ASA Classification* ASA Classification ASA Classification: 4 and E Assessment & Plan Anesthesia* Anesthesia Assessment Anesthesia Assessment: Discussed sedation and/or anesthesia options, risks, benefits, and alternatives with patient/parents/legal guardian/POA. Questions invited. The patient/parents/legal guardian/POA seems to understand and agrees to proceed with anesthesia plan. Reviewed the physical assessment, medical history, allergy history and patient home medications list prior to surgery/procedure/anesthetic and documented any changes. Performed airway and anesthesia risk assessments. Anesthesia Type Anesthesia Type: MAC (patient septic bp earlier 74/55. [laced om levophed now 101/70. mild sedation with etomidate) Anesthesia Focused Assessment* Temperature: 97.9 F Pulse Rate: 101 Blood Pressure: 101/70 Respiratory Rate: 15 Pulse Ox: 100 Oxygen Flow Rate (L/min): 3 Airway Assessment Mouth opens: >3 cm Mallampati Score: II Labs Anesthesia Preop lab: CBC WBC 24.8 K/mm3 (4.4-11.0) H 06/28/25 04:15 5 RBC 3.30 M/mm3 (4.6-6.2) L 06/28/25 04:15 06/28/25 Hgb 8.2 g/dL (13.0-16.5) L 06/28/25 04:15 06/28/25 Hct 28.9 % (40-54) L 06/28/25 04:15 06/28/25 Plt Count 468 K/mm3 (150-450) H 06/28/25 04:15 06/28/25 CHEMISTRY Potassium 4.5 mmol/L (3.3-5.1) 06/28/25 08:30 06/28/25 Sodium 141 mmol/L (133-145) 06/28/25 08:30 06/28/25 Magnesium 2.6 mg/dL (1.5-2.2) H 06/24/25 06:03 06/24/25 Phosphorus 1.9 mg/dL (2.7-4.5) L 06/24/25 06:03 06/24/25 BUN 27 mg/dL (4-19) H 06/28/25 08:30 06/28/25 Creatinine 1.33 mg/dL (0.70-1.20) H 06/28/25 08:30 Glucose 149 mg/dL (70-99) H 06/28/25 08:30 06/28/25 TSH 1.790 uIU/mL (0.300-4.200) 05/22/25 04:45 07/0 12/16 COAG PT 20.4 SECONDS (11.7-14.9) H 10/10/24 18:20 09/22 08/15 Pre-Assessment Diagnosis/Proposed Procedure Planned Operative Procedure(s): cysto stent Anesthesia History Anesthesia History - strategic account director: Anesthesia History - strategic account director Hx Hospitalization Yes: 05/23/25 KIDNEY STONES, 06/11/25 11:36 LEG INFECTIONS Any Problems With Anesthesia No 06/28/25 08:40 Cholinesterase deficiency No 06/28/25 08:40 You/Your Family Experience No 06/28/25 08:40 fever (hyperthermia) with Relationship Recent Exposure to Contagious No 06/28/25 08:40 Disease Does patient have nerve No 06/28/25 08:40 stimulator Patient instructed to have device shut off --Does patient have Pacemaker No 06/28/25 08:40 or ICD? When Was Last Pacemaker Check QUESTION #4 FULL TEXT: You/Your Family Experience fever (hyperthermia) with Anesthesia Last Oral Intake Last Oral intake: Last Oral Intake NPO since 08:30 06/28/25 08:40 Meds taken in AM with sips of No 06/28/25 08:40 water? Meds patient instructed to take am of surgery PONV PONV - strategic account director: PONV - strategic account director Female HX of Motion Sickness HX of N/V After Surgery Non-Smoker Duration of Surgery greater than 60 minutes Number of Risk Factors PONV Score Height & Weight Height & Weight: Anesthesia: Height & Weight Height 5 ft 10 in 06/28/25 09:30 Weight: 81.1 kg 06/28/25 09:30 Body Mass Index (BMI) 25.6 06/28/25 08:40 Respiratory Assessment Respiratory Assessment - strategic account director: Respiratory Tract Infection Hx - strategic account director Hx Respiratory Tract Infection No 06/28/25 08:40 STOP Sleep Apnea STOP Sleep Apnea - strategic account director: STOP Sleep Apnea - strategic account director Hx Hypertension No 06/28/25 09:00 Hx Sleep Apnea No 06/27/25 16:37 CPAP No 06/22/25 19:51 BIPAP Do you snore loudly (louder Yes 06/27/25 16:37 than talking or can be heard Do you often feel tired/ Yes 06/27/25 16:37 fatigued/ sleepy during daytime? Has anyone observed you stop No 06/27/25 16:37 breathing during sleep? STOP Results Positive 06/27/25 16:37 QUESTION #5 FULL TEXT : Do you snore loudly (louder than talking or can be heard through closed doors)? Tobacco Use History Tobacco Use History - strategic account director: Tobacco Use History - strategic account director Tobacco Use Non-smoker 06/04/25 13:39 Smoking Status Never smoker 06/27/25 16:37 Hx Tobacco Use No 06/27/25 16:37 Years Smoking Packs Smoked per Day Smoking Cessation Date was within the last 15 years Hx Smoking Cessation Date Hx Smoking Cessation Counseling Hematologic Medial History Hematologic Hx - strategic account director: Hematologic Medical Hx - managing jeweler Hx of Blood Transfusion Yes 06/27/25 16:37 Hx of Transfusion in last 3 No 06/27/25 16:37 Months Date of Last Transfusion (if within last 3 months) Ever experience any problems No 06/27/25 16:37 with transfusion(s)? Specify any problems Hx of Preganancy in last 3 N/A 06/27/25 16:37 Months Nurse Filling Out Transfusion NSMIT 06/27/25 16:37 & Questions: Date: 06/27/25 06/27/25 16:37 Time: 17:11 06/27/25 16:37 Patient unable to answer at this time (ie. confused, unrespo /Reproduction History /Reproductive History - strategic account director: /Reproductive Hx- strategic account director Hx Now No 06/28/25 08:40 Gestational Age (in weeks): EDC: Hx Hx Para Hx Section SAB No 06/28/25 08:40 Active Medications Active Medications: Current Medications Generic Name Dose Route Start Last Admin Trade Name Freq PRN Reason Stop Dose Admin Acetaminophen 650 mg 06/27/25 17:17 Acetaminophen 325 Mg Tablet PO Q6H PRN PRN Pain 1-10 Or Fever>100.7 Albuterol/Ipratropium 3 ml 06/27/25 17:17 Ipratropium/Albuterol Sulfate 3 Ml Ampul.Neb INHALATION Q4H PRN PRN SHORTNESS OF BREATH Apixaban 5 mg 06/27/25 22:00 06/28/25 10:30 Apixaban 5 Mg Tablet GT Not Given BID MICA Ascorbic Acid 500 mg 06/28/25 10:00 06/28/25 10:29 Ascorbic Acid 500 Mg Tablet GT Not Given DAILY MICA Azithromycin 250 mg 06/28/25 11:30 Azithromycin 250 Mg Tablet PO Q24 MICA Cholecalciferol 25 mcg 06/28/25 10:00 06/28/25 10:29 Cholecalciferol (Vit D3) 25 Mcg Tablet (1,000 Units) GT Not Given DAILY MICA Ferrous Sulfate 325 mg 06/28/25 10:00 06/28/25 10:30 Ferrous Sulfate 300 Mg/5 Ml Udc GT Not Given DAILY MICA Folic Acid 1 mg 06/28/25 08:00 06/28/25 09:37 Folic Acid 1 Mg Tablet GT Not Given BREAKFAST MICA Hydrocortisone Sodium Succinate 100 mg 06/27/25 18:00 06/28/25 06:32 Hydrocortisone Sod Succinate 100 Mg/2 Ml Vial IV 100 mg Q6 MICA Administration Vancomycin IV-PHARMACY TO DOSE 500 mls @ 250 mls/hr 06/27/25 17:17 1 each/ Sodium Chloride IV PRN PRN Rx to Dose Protocol Meropenem 1 gm/ Sodium 100 mls @ 33 mls/hr 06/27/25 22:00 06/28/25 09:37 Chloride IV Infused Q8 MICA Infusion Sodium Chloride 250 mls @ 15 mls/hr 06/27/25 17:22 IV .[id number] PRN Saline Flush Sodium Chloride 250 mls @ 15 mls/hr 06/27/25 17:22 IV .[id number] PRN Additional IVPB Infusion Vancomycin HCl 1,000 mg/ 270 mls @ 250 mls/hr 06/27/25 23:00 06/28/25 10:26 Sodium Chloride IV 250 mls/hr Q12H MICA Administration Sodium Chloride 1,000 mls @ 500 mls/hr 06/28/25 09:55 06/28/25 10:04 IV 06/28/25 11:54 500 mls/hr .Q2H MICA Administration Norepinephrine Bitartrate 8 mg 250 mls @ 9.375 mls/hr 06/28/25 10:00 06/28/25 11:15 / Sodium Chloride CONT INF 15 mcg/min .[id number] MICA 28.1 mls/hr Titration Protocol 5 MCG/MIN Lansoprazole 30 mg 06/28/25 10:00 06/28/25 10:30 Lansoprazole 15 Mg Capsule.Dr GT Not Given DAILY MICA Metoprolol Tartrate 50 mg 06/27/25 22:00 06/28/25 10:24 Metoprolol Tartrate 50 Mg Tablet GT Not Given BID MICA Protocol Metoprolol Tartrate 5 mg 06/27/25 17:17 Metoprolol Tartrate 5 Mg/5 Ml Vial IV Q6 PRN HR greater than 120 Protocol Montelukast Sodium 10 mg 06/27/25 22:00 06/27/25 20:53 Montelukast 10 Mg Tablet GT 10 mg QHS MICA Administration Non-Formulary Medication 300 mg 06/28/25 10:30 Rifabutin PO DAILY [facility] Non-Formulary Medication 1,200 mg 06/28/25 10:30 Ethambutol PO DAILY [facility] Nystatin 1 applic 06/27/25 22:00 06/28/25 10:35 Nystatin Powder 15gm Bottle TOPICAL 1 applic BID MICA Administration Protocol Ondansetron HCl 4 mg 06/27/25 17:17 Ondansetron Odt 4 Mg Tablet PO Q6H PRN Nausea/Vomiting Ondansetron HCl 4 mg 06/27/25 18:30 Ondansetron 4 Mg/2 Ml Vial IV Q4H PRN PRN NAUSEA/VOMITING Sertraline HCl 50 mg 06/28/25 10:00 06/28/25 10:29 Sertraline 50 Mg Tablet GT Not Given DAILY [facility] Sodium Chloride 10 - 40 ml 06/27/25 17:22 06/27/25 19:57 0.9 % Nacl (Sterile) Posiflush 10 Ml IV 10 ml UD PRN Administration Port access or dressing change Sodium Chloride 10 - 40 ml 06/27/25 17:22 0.9% Saline Lock 10 Ml Syringe IV UD PRN Multilumen/Betts Flush Sodium Chloride 10 - 40 ml 06/27/25 17:22 0.9% Saline Lock 10 Ml Syringe IV UD PRN SALINE FLUSH Trimethoprim/Sulfamethoxazole 20 ml 06/27/25 19:00 06/27/25 20:53 Smx/Tmp Suspension 20 Ml/Udc Udc GT 20 ml [id number] MICA Administration Vancomycin Protocol 1 lab 06/28/25 21:30 Vancomycin Trough/Random Due 06/28/25 23:30 DAILY [facility] PFSH Medical History Low iron Anemia Depression Dysphagia Gastrostomy in place History of steroid therapy Thyroid nodule Uses wheelchair Gout Prostate disease Antisynthetase syndrome Acute cystitis with hematuria Thyroid cyst Allergic rhinitis Major depressive disorder BPH (benign prostatic hyperplasia) Low back pain Disorder of zinc metabolism GERD (gastroesophageal reflux disease) Osteoporosis Adult failure to thrive Right bundle branch block Hypertension Atrial fibrillation Dysphagia, oropharyngeal Abscess of right lower extremity Personal history of immunosupression therapy Orthostatic hypotension PAF (paroxysmal atrial fibrillation) Steroid dependence Neuropathic pain Antisynthetase syndrome History of shingles Ambulatory dysfunction Shingles Abscess of left thigh BOOP (bronchiolitis obliterans with organizing pneumonia) Wears glasses High cholesterol Easy bruising Back pain Injury of head and neck Blackout Gastric reflux Non-smoker On home oxygen therapy Hoarseness Chronic cough History of echocardiogram Hypertension History of stress test Cardiology follow-up encounter History of atrial fibrillation Atrial fibrillation COVID-19 Osteoporosis Kidney stones Atrial fibrillation RBBB (right bundle branch block) Antisynthetase syndrome Essential hypertension Mixed hyperlipidemia Asthma Interstitial lung disease GERD (gastroesophageal reflux disease) Fatty liver BPH (benign prostatic hyperplasia) Lung nodule Vasovagal syncope Abnormal cardiac CT angiography Home Medications ?Medication ?Instructions ?Recorded ?Last Taken ?Type denosumab 60 mg/mL subcutaneous 60 mg subcut [id number] low calcuim 07/14/21 Unknown History syringe (Prolia) pantoprazole 40 mg tablet,delayed 40 mg PO DAILY reflu x 07/14/21 06/26/25 History release lactobacillus combination no.9 4 4,000 mmu cells PO DA ROBERT supplement 01/01/22 06/26/25 History billion cell capsule (Adult 50 Plus Probiotic) montelukast 10 mg tablet 10 mg feeding tube QHS aller gies 05/12/23 06/26/25 History (Singulair) ascorbic acid (vitamin C) 500 mg 500 mg PO DAILY suppl e 10/10/24 06/12/25 History capsule prednisone 10 mg tablet 20 mg feeding tube DAILYCM s teriod 05/21/25 06/26/25 History cholecalciferol (vitamin D3) 25 25 mcg feeding tube DA ROBERT 05/23/25 06/26/25 History mcg (1,000 unit) tablet (Vitamin supplement D3) ferrous sulfate 300 mg (60 mg 325 mg feeding tube CALLIE Y 05/23/25 06/26/25 History iron)/5 mL oral liquid supplemetn folic acid 1 mg tablet 1 mg feeding tube DAILY supp lement 05/23/25 06/26/25 History ipratropium 0.5 mg-albuterol 3 mg 3 ml inhalation Q4H PRN pneumonuia 05/23/25 06/26/25 History (2.5 mg base)/3 mL nebulization soln mometasone 220 mcg/actuation(60 1 inh inhalation BID s ob 05/23/25 06/26/25 History doses) breath activated powder inhaler (Asmanex Twisthaler) nystatin 100,000 unit/gram topical 1 applic topical BI D yeast 05/23/25 06/26/25 History powder ondansetron 4 mg disintegrating 4 mg PO Q6H PRN Nausea /Vomiting 05/23/25 06/23/25 History tablet sertraline 50 mg tablet 50 mg feeding tube DAILY dep ression 05/23/25 06/26/25 History sulfamethoxazole 800 1 tab feeding tube MOWEFR AT B 05/23/25 06/25/25 History mg-trimethoprim 160 mg tablet (Bactrim DS) ethambutol 400 mg tablet 1,200 mg feeding tube Q24H n /a 06/11/25 06/26/25 History azithromycin 250 mg tablet 250 mg feeding tube QHS ant ibiotic 06/12/25 06/26/25 History rifabutin 150 mg capsule 300 mg feeding tube DAILY 06/26/25 History antibacterial metoprolol tartrate 50 mg tablet 50 mg G-tube BID #0 t abs 06/24/25 06/26/25 Rx acetaminophen 325 mg tablet 650 mg feeding tube Q6H GA N PRN 06/27/25 Unknown History Pain 1-10 Or Fever>100.7 apixaban 5 mg tablet (Eliquis) 5 mg feeding tube BID A fib 06/27/25 06/26/25 History nutritional supplements 0.08 60 ml feeding tube .24 Nu trition 06/27/25 Unknown History gram-2 kcal/mL liquid for tube feed (Nutren 2.0) Allergy/AdvReac Type Severity Reaction Status Date / Time monosodium glutamate Allergy Abd Verified 06/13/25 12:58 cramps/diarrhea Penicillins (PCN) Allergy Rash Verified 06/13/25 12:58 allopurinol AdvReac Unknown cough Verified 06/13/25 12:58 morphine AdvReac Other Verified 06/13/25 12:58 tamsulosin (From Flomax) AdvReac Other Verified 06/13/25 12:58 Family History Grandfather CVA (cerebral vascular accident) Grandmother Congestive heart failure Grandmother Cardiac pacemaker in situ Mother Heart disease Hypertension Father Heart disease Cardiac arrhythmia Surgical History History of renal stent History of incision and drainage Hx of cystoscopy History of umbilical hernia repair History of inguinal hernia repair Social History household members: spouse Smoking Status: Never smoker alcohol intake: current details: Rare substance use type: does not use caffeine: Yes Type: coffee Number of servings: 1 Review of Systems (Anesthesia) ROS Narrative System reviewed and no additional complaints, except as documented.
--- NOTE | 2025-06-28 11:55 | NURSING ---
Patient left for the OR, report given to nursing staff
--- NOTE | 2025-06-28 12:04 | CON.PCM.CC_ITS ---
Assessment & Plan Assessment/Plan (1) Septic shock: PLAN: Plan RECOMMENDATIONS: 1. Continue antimicrobial therapy per ID recommendations. 2. Timing for cystoscopy per urology. 3. Initiate Levophed to maintain a mean arterial pressure at or above 65 mmHg. 4. Continue stress dose steroids as ordered. IMPRESSIONS: 1. Septic shock The patient presented with a complicated urinary tract source of infection with evidence of recurrent kidney stones and obstruction. Urology has been consulted with tentative plans for intervention later today. I agree with further volume resuscitation as ordered. In light of the patient's ongoing hypotension, recommend starting Levophed to maintain a mean arterial pressure at or above 65 mmHg. Stress dose steroids will be continued, pending improvement in hemodynamic status. 2. History of paroxysmal atrial fibrillation/chronic anemia/chronic lower extremity osteomyelitis/GERD/depression/chronic debility Complicates care, management, recovery and prognosis. Continue supportive measures as noted above. The patient is to remain n.p.o. for now. Continue 3 drug regimen per ID recommendations for mycobacterial infection involving the lower extremity. TIME: 34 minutes of critical care time, independent of procedures, spent addressing the patient's septic shock, review of all data and collaboration with care team. HPI Consult Data Date of Consult: 06/28/25 HPI Narrative Reason for Consultation: Sepsis HPI Narrative: The patient is a 74-year-old male, with a history as outlined below, who presented as a transfer of care from [facility] on June 27 with generalized malaise, nausea and vomiting. The patient was admitted to the hospital in May 2025 with small bladder stones which required cystoscopy, laser treatment and stent placement. The patient has a complex medical history including recent admission for wide-complex tachycardia, Mobitz type I heart block, chronic anemia, atrial fibrillation with RVR, chronic lower extremity osteomyelitis, GERD, depression and chronic debility. His workup at the outside hospital demonstrated findings concerning for an underlying urinary tract source of infection. CT imaging of the abdomen and pelvis demonstrated a new obstructing 8 mm stone at the left UPJ. The patient was noted to be hypotensive at presentation and therefore had a central venous catheter placed. He did have evidence of pulmonary vascular congestion. Therefore, aggressive fluid resuscitation was not emergently undertaken. He was transferred here for further management and for urology evaluation. At the present time, the patient is documented to be overall net +1.8 L for the hospitalization. At the time of my evaluation, he was still hypotensive but was receiving additional IV fluid resuscitation. The patient was seen in consultation by urology and infectious diseases. It should be noted that the patient has been on a 3 drug regimen for mycobacterial infection involving the right upper leg for several months. [facility] Medical History Low iron Anemia Depression Dysphagia Gastrostomy in place History of steroid therapy Thyroid nodule Uses wheelchair Gout Prostate disease Antisynthetase syndrome Acute cystitis with hematuria Thyroid cyst Allergic rhinitis Major depressive disorder BPH (benign prostatic hyperplasia) Low back pain Disorder of zinc metabolism GERD (gastroesophageal reflux disease) Osteoporosis Adult failure to thrive Right bundle branch block Hypertension Atrial fibrillation Dysphagia, oropharyngeal Abscess of right lower extremity Personal history of immunosupression therapy Orthostatic hypotension PAF (paroxysmal atrial fibrillation) Steroid dependence Neuropathic pain Antisynthetase syndrome History of shingles Ambulatory dysfunction Shingles Abscess of left thigh BOOP (bronchiolitis obliterans with organizing pneumonia) Wears glasses High cholesterol Easy bruising Back pain Injury of head and neck Blackout Gastric reflux Non-smoker On home oxygen therapy Hoarseness Chronic cough History of echocardiogram Hypertension History of stress test Cardiology follow-up encounter History of atrial fibrillation Atrial fibrillation COVID-19 Osteoporosis Kidney stones Atrial fibrillation RBBB (right bundle branch block) Antisynthetase syndrome Essential hypertension Mixed hyperlipidemia Asthma Interstitial lung disease GERD (gastroesophageal reflux disease) Fatty liver BPH (benign prostatic hyperplasia) Lung nodule Vasovagal syncope Abnormal cardiac CT angiography Home Medications ?Medication ?Instructions ?Recorded ?Last Taken ?Type denosumab 60 mg/mL subcutaneous 60 mg subcut [id number] low calcuim 07/14/21 Unknown History syringe (Prolia) pantoprazole 40 mg tablet,delayed 40 mg PO DAILY reflu x 07/14/21 06/26/25 History release lactobacillus combination no.9 4 4,000 mmu cells PO DA ROBERT supplement 01/01/22 06/26/25 History billion cell capsule (Adult 50 Plus Probiotic) montelukast 10 mg tablet 10 mg feeding tube QHS aller gies 05/12/23 06/26/25 History (Singulair) ascorbic acid (vitamin C) 500 mg 500 mg PO DAILY suppl e 10/10/24 06/12/25 History capsule prednisone 10 mg tablet 20 mg feeding tube DAILYCM s teriod 05/21/25 06/26/25 History cholecalciferol (vitamin D3) 25 25 mcg feeding tube DA ROBERT 05/23/25 06/26/25 History mcg (1,000 unit) tablet (Vitamin supplement D3) ferrous sulfate 300 mg (60 mg 325 mg feeding tube CALLIE Y 05/23/25 06/26/25 History iron)/5 mL oral liquid supplemetn folic acid 1 mg tablet 1 mg feeding tube DAILY supp lement 05/23/25 06/26/25 History ipratropium 0.5 mg-albuterol 3 mg 3 ml inhalation Q4H PRN pneumonuia 05/23/25 06/26/25 History (2.5 mg base)/3 mL nebulization soln mometasone 220 mcg/actuation(60 1 inh inhalation BID s ob 05/23/25 06/26/25 History doses) breath activated powder inhaler (Asmanex Twisthaler) nystatin 100,000 unit/gram topical 1 applic topical BI D yeast 05/23/25 06/26/25 History powder ondansetron 4 mg disintegrating 4 mg PO Q6H PRN Nausea /Vomiting 05/23/25 06/23/25 History tablet sertraline 50 mg tablet 50 mg feeding tube DAILY dep ression 05/23/25 06/26/25 History sulfamethoxazole 800 1 tab feeding tube MOWEFR AT B 05/23/25 06/25/25 History mg-trimethoprim 160 mg tablet (Bactrim DS) ethambutol 400 mg tablet 1,200 mg feeding tube Q24H n /a 06/11/25 06/26/25 History azithromycin 250 mg tablet 250 mg feeding tube QHS ant ibiotic 06/12/25 06/26/25 History rifabutin 150 mg capsule 300 mg feeding tube DAILY 06/26/25 History antibacterial metoprolol tartrate 50 mg tablet 50 mg G-tube BID #0 t abs 06/24/25 06/26/25 Rx acetaminophen 325 mg tablet 650 mg feeding tube Q6H CT N PRN 06/27/25 Unknown History Pain 1-10 Or Fever>100.7 apixaban 5 mg tablet (Eliquis) 5 mg feeding tube BID A fib 06/27/25 06/26/25 History nutritional supplements 0.08 60 ml feeding tube .24 Nu trition 06/27/25 Unknown History gram-2 kcal/mL liquid for tube feed (Nutren 2.0) Allergy/AdvReac Type Severity Reaction Status Date / Time monosodium glutamate Allergy Abd Verified 06/13/25 12:58 cramps/diarrhea Penicillins (PCN) Allergy Rash Verified 06/13/25 12:58 allopurinol AdvReac Unknown cough Verified 06/13/25 12:58 morphine AdvReac Other Verified 06/13/25 12:58 tamsulosin (From Flomax) AdvReac Other Verified 06/13/25 12:58 Family History Grandfather CVA (cerebral vascular accident) Grandmother Congestive heart failure Grandmother Cardiac pacemaker in situ Mother Heart disease Hypertension Father Heart disease Cardiac arrhythmia Surgical History History of renal stent History of incision and drainage Hx of cystoscopy History of umbilical hernia repair History of inguinal hernia repair Social History household members: spouse Smoking Status: Never smoker alcohol intake: current details: Rare substance use type: does not use caffeine: Yes Type: coffee Number of servings: 1 ROS ROS Narrative 10 systems were reviewed with pertinent positives as noted in the HPI above. Physical Exam Const alert and no apparent distress General Appearance: cooperative HEENT normocephalic and head/scalp atraumatic Eyes PERRL, EOMs intact bilaterally and conjunctivae normal Neck supple General: trachea midline and CVC in place Chest inspection of chest normal Resp normal respiratory effort Auscultation: rales Cardio regular rate and regular rhythm GI normal to inspection, nondistended, normoactive bowel sounds Extremity no clubbing, cyanosis or edema Neuro CN's II-XII intact bilaterally, moves all extremities and no focal motor deficits Psych Mood & Affect: flat affect Lab / Micro Data 06/28/25 04:15 06/28/25 08:30 Labs: Laboratory Results - last 24 hr 06/27/25 17:35: Lactic Acid 1.5 06/28/25 04:15: WBC 24.8 H, RBC 3.30 L, Hgb 8.2 L, Hct 28.9 L, MCV 87.6, MCH 24.8 L, MCHC 28.4 L, RDW Std Deviation 56.4 H, RDW Coeff of Opal 17.6 H, Plt Count 468 H, MPV 9.5, Immature Gran % (Auto) 1.100 H, Neut % (Auto) 95.5 H, L ymph % (Auto) 0.8 L, [place] % (Auto) 2.4, Eos % (Auto) 0.0, Baso % (Auto) 0.2, A bsolute Neuts (auto) 23.7 H, Absolute Lymphs (auto) 0.19 L, Nucleated RBC % 0, Differential Comment SCANNED, Platelet Estimate MOD INC, Sodium 142, Potassium 5.7 H, Chloride 108, Carbon Dioxide 25.2, Anion Gap 8, BUN 26 H, Creatinine 1.24 H, Estim Creat Clear Calc 55.60, Est GFR (MDRD) Non-Af 62, BUN/Creatinine Ratio 21.0 H, Glucose 112 H, Calcium 8.2, Total Bilirubin 0.29, AST 19, ALT 12, Alkaline Phosphatase 70, Total Protein 6.2, Albumin 2.8 L, Globulin 3.4, A lbumin/Globulin Ratio 0.8 L 06/28/25 05:07: Sodium 140, Potassium 5.6 H, Chloride 107, Carbon Dioxide 26.1, Anion Gap 7, BUN 28 H, Creatinine 1.28 H, Estim Creat Clear Calc 53.86, Est GFR (MDRD) Non-Af 59 L, BUN/Creatinine Ratio 21.5 H, Glucose 112 H, Calcium 7.9 06/28/25 08:30: Sodium 141, Potassium 4.5, Chloride 107, Carbon Dioxide 24.2, Anion Gap 10, BUN 27 H, Creatinine 1.33 H, Estim Creat Clear Calc 51.84, Est GFR (MDRD) Non-Af 57 L, BUN/Creatinine Ratio 20.2 H, Glucose 149 H, Calcium 8.1 Micro: Microbiology 06/27/25 17:40 Urine, Clean Catch Legionella Antigen - Final 06/27/25 17:40 Urine, Clean Catch Streptococcus pneumoniae Antigen (M - Final Imaging Radiology Impression Echocardiogram 06/27/25 17:25 Interpretation Summary Normal LV size. Left ventricular systolic function is normal. The left ventricular ejection fraction is 55 %. There is moderate mitral annular calcification. Contrast injection was performed. Ordering Physician: Wagner Portillo Referring Physician: Wagner Portillo Performed By: Calvin Corral RCS Charges/Coding Procedures Hospitalists Procedures: 02062 Critical Care 1st Hr
--- NOTE | 2025-06-28 12:27 | OP.PCM_ITS ---
Operative Report (Standard) Operative Information Date of Procedure: 06/28/25 Pre-Operative Diagnosis: obstructing left ureteral calculi Post-Operative Diagnosis: same Surgery/Procedure Performed: cystoscopy and left stent placemtn application programmer analyst: No Type of Anesthesia: General RN Documented Start/Stop Times: Operation Date: 06/28/25 09:05 Case Time Anesthesia Start 06/28/25 12:05 Into Room 06/28/25 12:05 Procedure Start 06/28/25 12:22 Procedure End 06/28/25 12:26 Procedure Start Time: 12: Procedure Stop Time: 12:28 Select all DRAINS/GRAFTS/IMPLANTS that apply: Drains Drain details: 6 x 26 cm stent left side Estimated Blood Loss: 0 Specimen collected: No Description of surgery: Patient was taken back to the operating room after induction of general anesthesia, the patient was placed in dorsolithotomy position. The urethra and genitals were prepped and draped in usual sterile fashion. Using a 21 [place] rigid cystourethroscope the entire length of the urethra was normal then went into the bladder. Identified the trigone the left and right ureteral orifice. I then cannulated the left ureteral orifice and advanced a wire up into the kidney. I then backloaded a 5 Bahamian open ended catheter over the wire and injected contrast to delineate the anatomy. After the retrograde was performed I then used fluoroscopic images and guidance to advanced a wire up into the kidney and over the 0.038 glidewire I advanced a 6 Bah[place]ian by 26 cm double pigtail stent. I then pulled the 0.038 Glidewire off and the stent coiled in the kidney bladder good position. The bladder was then drained. We confirmed the position of the stent by fluoroscopy. Patient anesthetic was reversed and was taken back to the PACU in good condition. Surgical Findings: stent placed Complications Complications: No Admit VTE Documentation VTE Present on Admission: No VTE Mechan Device Prophylaxis: SCD's VTE Pharm Prophylaxis ordered?: No
--- NOTE | 2025-06-28 12:40 | NURSING ---
Patient returned to the unit
--- NOTE | 2025-06-28 12:44 | PCM.POST.ANE ---
Anesthesia: Postop Eval I Current Vital Signs Temperature: 97.5 F Pulse Rate: 121 Blood Pressure: 113/84 Respiratory Rate: 18 Pulse Ox: 99 Oxygen Delivery Method: Nasal Cannula Oxygen Flow Rate (L/min): 4 Assessment Airway patent: Yes Spontaneous unlabored respirations: Yes Mental status: Awake and Calm nausea: No Vomiting: No Anesthesia Complication: No Fluid Hydration Crystalloid volume administer (ml): 100 Total IV fluid infused: 100 Progress Note Post-operative progress note: PATIENT STABLE ON ARRIVAL TO ICU WITH LEVOPHED CONTINUED Anesthesia document: Postop Eval 1 completed: Yes
--- NOTE | 2025-06-28 14:30 | CASEMGMT ---
Social Work Pt admitted from [facility] halfway. SW met with pt and pt confirms plan to return to [facility] at time of discharge. DC assistant manager retail notified and to send updates to [facility]. EDMUND Penn
--- NOTE | 2025-06-28 15:19 | CASEMGMT ---
Discharge Planning Updates sent to [facility]. Charis Pittman DC Planning Asst.
--- NOTE | 2025-06-28 15:22 | PCM.PN.HOSP ---
Reason for Visit Chief Complaint: Malaise Subjective Subjective Patient was seen and examined today, due to hypotension and sepsis, I had critical care see the patient in consultation. Patient is currently on pressors, he also underwent insertion of a left ureteral stent today due to obstruction from a ureteral stone. Finally, I also had infectious disease to see the patient due to his history of osteomyelitis and chronic antibiotic treatment. Objective Data Objective Data Vital Signs: Vital Signs Temp Pulse Resp BP Pulse Ox O2 Del Method O2 Flow Rate 97.8 F 117 H 17 107/81 H 97 Nasal Cannula 3 06/28/25 13:30 06/28/25 13:30 06/28/25 13:30 06/28/25 13:30 06/28/25 13:30 06/28/25 13:30 06/28/25 13:30 Oxygen Flow Rate (L/min) 3 Oxygen Delivery Method Nasal Cannula Weight: 81.1 kg Body Mass Index (BMI) 25.6 Intake & Output: Intake and Output for Last 24 Hours 06/26/25 06/27/25 06/28/25 23:59 23:59 23:59 Intake Total 1000 / 1000 2203.87 / 2203.87 Output Total 250 / 250 400 / 400 Balance 750 / 750 1803.87 / 1803.87 Lab / Micro Data 06/28/25 04:15 06/28/25 08:30 Labs: Laboratory Results - last 24 hr 06/27/25 17:35: Lactic Acid 1.5 06/28/25 04:15: WBC 24.8 H, RBC 3.30 L, Hgb 8.2 L, Hct 28.9 L, MCV 87.6, MCH 24.8 L, MCHC 28.4 L, RDW Std Deviation 56.4 H, RDW Coeff of Opal 17.6 H, Plt Count 468 H, MPV 9.5, Immature Gran % (Auto) 1.100 H, Neut % (Auto) 95.5 H, Lymph % (Auto) 0.8 L, [place] % (Auto) 2.4, Eos % (Auto) 0.0, Baso % (Auto) 0.2, Absolute Neuts (auto) 23.7 H, Absolute Lymphs (auto) 0.19 L, Nucleated RBC % 0, Differential Comment SCANNED, Platelet Estimate MOD INC, Sodium 142, Potassium 5.7 H, Chloride 108, Carbon Dioxide 25.2, Anion Gap 8, BUN 26 H, Creatinine 1.24 H, Estim Creat Clear Calc 55.60, Est GFR (MDRD) Non-Af 62, BUN/Creatinine Ratio 21.0 H, Glucose 112 H, Calcium 8.2, Total Bilirubin 0.29, AST 19, ALT 12, Alkaline Phosphatase 70, Total Protein 6.2, Albumin 2.8 L, Globulin 3.4, Albumin/Globulin Ratio 0.8 L 06/28/25 05:07: Sodium 140, Potassium 5.6 H, Chloride 107, Carbon Dioxide 26.1, Anion Gap 7, BUN 28 H, Creatinine 1.28 H, Estim Creat Clear Calc 53.86, Est GFR (MDRD) Non-Af 59 L, BUN/Creatinine Ratio 21.5 H, Glucose 112 H, Calcium 7.9 06/28/25 08:30: Sodium 141, Potassium 4.5, Chloride 107, Carbon Dioxide 24.2, Anion Gap 10, BUN 27 H, Creatinine 1.33 H, Estim Creat Clear Calc 51.84, Est GFR (MDRD) Non-Af 57 L, BUN/Creatinine Ratio 20.2 H, Glucose 149 H, Calcium 8.1 Micro: Microbiology 06/27/25 17:40 Urine, Clean Catch Legionella Antigen - Final 06/27/25 17:40 Urine, Clean Catch Streptococcus pneumoniae Antigen (M - Final Radiography Diagnostic Testing: Radiology Impression Echocardiogram 06/27/25 17:25 Interpretation Summary Normal LV size. Left ventricular systolic function is normal. The left ventricular ejection fraction is 55 %. There is moderate mitral annular calcification. Contrast injection was performed. Ordering Physician: Wagner Portillo Referring Physician: Wagner Portillo Performed By: Calvin Corral RCS Physical Exam Const alert and no apparent distress General Appearance: cooperative, well kempt and well developed Orientation / Consciousness: awake, oriented to person and oriented to place HEENT normocephalic, head/scalp atraumatic and moist oral mucous membranes Eyes PERRL, EOMs intact bilaterally and conjunctivae normal Neck supple, no JVD, thyroid normal and no carotid bruits General: trachea midline Resp normal respiratory effort, no retractions, no use of accessory muscles and clear to auscultation bilaterally Auscultation: Negative for rales, rhonchi or wheezes Cardio S1 normal heart sound, S2 normal heart sound, no murmurs, no rub and no gallops Cardio Narrative: Heart rate and rhythm is irregular GI normal to inspection, nondistended, normoactive bowel sounds, soft to palpation, non-tender and non-distended GI Narrative: G-tube is in place Extremity Extremity Narrative: Generalized lower leg edema as noted Skin no rashes or lesions noted General Skin Exam: no breakdown Neuro CN's II-XII intact bilaterally, no focal motor deficits and no sensory deficits noted Sensorium / Orientation: awake, alert, oriented to person and oriented to place Speech: speech normal Psych affect normal Assessment & Plan Assessment/Plan (1) Septic shock: PLAN: Plan 1. Septic shock secondary to urinary tract infection-patient will remain on antibiotic coverage per infectious diseases #2 paroxysmal atrial fibrillation-patient is on rate control medications as well as Eliquis #3 chronic lower extremity osteomyelitis-antibiotic coverage per infectious diseases #4 chronic depression-patient is on Zoloft #5 chronic use of anticoagulant-patient is on Eliquis due to his paroxysmal A-fib Total clinical time spent by myself addressing the patient's medical issues, reviewing all of his data, and collaborating with patient's care team: 35 minutes Charges/Coding Visit Charges Inpatient E&M: 98112 Subs Hosp L2
[2025-06-28] MEDS: APIXABAN 5 MG TABLET GT (21:19)
[2025-06-28 22:04] LABS: Vancomycin, Trough Level 23.9 ug/mL (5.0-15.0)
--- NOTE | 2025-06-28 22:29 | PCM.RX.CS ---
Consult Antibiotic Management Pharmacy has been consulted to manage selected antibiotic: Vancomycin Type of Intervention Type of Consult: Follow-up Labs Labs: Sodium 141 mmol/L (133-145) 06/28/25 08:30 Potassium 4.5 mmol/L (3.3-5.1) 06/28/25 08:30 Chloride 107 mmol/L (98-108) 06/28/25 08:30 Carbon Dioxide 24.2 mmol/L (21.0-32.0) 06/28/25 08:30 Anion Gap 10 (5-15) 06/28/25 08:30 BUN 27 mg/dL (4-19) H 06/28/25 08:30 Creatinine 1.33 mg/dL (0.70-1.20) H 06/28/25 08:30 Est GFR (MDRD) Non-Af 57 (>60) L 06/28/25 08:30 BUN/Creatinine Ratio 20.2 RATIO (10-20) H 06/28/25 08:30 Glucose 149 mg/dL (70-99) H 06/28/25 08:30 Vancomycin Trough 23.9 ug/mL (5.0-15.0) H 06/28/25 21:40 Microbiology Microbiology: Microbiology 06/27/25 17:40 Urine, Clean Catch Legionella Antigen - Final 06/27/25 17:40 Urine, Clean Catch Streptococcus pneumoniae Antigen (M - Final Goal Trough Goal Trough: 15-20 mcg/mL Pharmacy Plan for Drug Dosing Pharmacy Plan for Drug Dosing: Pharmacy Service will continue to monitor and adjust dosing as required. TROUGH 23.9 @ 11 HOURS. HOLD DOSE AND DRAW RANDOM LEVEL IN 12 HOURS Follow-Up Labs Follow-Up Labs: Trough: Vancomycin Date/Time Labs Ordered Labs to be done on [date and time ordered]: 06/29 @ [id number]
[2025-06-28] MEDS: 0.9% Saline Lock 10 ML Syringe IV (23:41)
[2025-06-29] VITALS (33 sets, daily range): BP systolic 92–137; BP diastolic 60–103; PULSE 70–135; RESP 15–29; TEMP 36.4–36.8; O2SAT 96–99; BMI 26.2
[2025-06-29] MEDS: Norepinephrine 8 MG in 0.9% Normal Saline (250mL Bag) 242 ML 18.8 MG CONT INF (03:09)
[2025-06-29 03:24] LABS: Hematocrit 28.1 % (40-54); Hemoglobin 8.1 g/dL (13.0-16.5); Immature Granulocytes Count 0.230 X10^3/uL (0.0-0.0); Mean Corp Hgb Conc 28.8 g/dL (32-36); Mean Corpuscular Volume 87.0 fL (80-94); Mean Platelet Vol. 9.6 fl (6.2-12.0); NRBC Flagged by Analyzer 0 % (0-5); POSITIVE DIFFERENTIAL YES; Platelet Count 577 K/mm3 (150-450); RBC Distribution Width CV 17.7 % (11.6-14.6); RBC Distribution Width SD 56.7 fl (35.1-43.9); Red Blood Count 3.23 M/mm3 (4.6-6.2); White Blood Count 25.2 K/mm3 (4.4-11.0)
[2025-06-29 03:43] LABS: Differential Indicated SCAN CRITERIA MET
[2025-06-29 03:59] LABS: Anion Gap 10 (5-15); BUN 21 mg/dL (4-19); BUN/Creat Ratio 20.6 RATIO (10-20); Calcium,Total 7.9 mg/dL (7.6-11.0); Carbon Dioxide 23.5 mmol/L (21.0-32.0); Chloride 108 mmol/L (98-108); Estimated Creatinine Clearance 67.59 ml/min (50-250); Glucose 141 mg/dL (70-99); Potassium 4.2 mmol/L (3.3-5.1)
[2025-06-29] MEDS: Meropenem 1 GM in 0.9% Normal Saline (100mL MB+) 100 ML IV ×3 (05:37→20:55)
[2025-06-29] MEDS: 0.9% Saline Lock 10 ML Syringe IV (05:42)
--- NOTE | 2025-06-29 06:50 | PCM.PN.INT ---
Assessment & Plan Assessment/Plan (1) Septic shock: PLAN: Plan RECOMMENDATIONS: 1. Continue antimicrobial therapy per ID recommendations. 2. Urology is following to assist with medical management. 3. Continue Levophed to maintain a mean arterial pressure at or above 65 mmHg. 4. Continue stress dose steroids as ordered. 5. Encourage incentive spirometer use and mobilize patient as tolerated. IMPRESSIONS: 1. Septic shock The patient presented with a complicated urinary tract source of infection with evidence of recurrent kidney stones and obstruction. Urology was subsequently consulted and the patient was taken for cystoscopy and stent placement on June 28. The patient will be continued on antimicrobial therapy per ID recommendations along with Levophed to maintain a mean arterial pressure at or above 65 mmHg. Stress dose steroids will also be continued in the interim. 2. History of paroxysmal atrial fibrillation/chronic anemia/chronic lower extremity osteomyelitis/GERD/depression/chronic debility Complicates care, management, recovery and prognosis. Continue supportive measures as noted above. Continue 3 drug regimen per ID recommendations for mycobacterial infection involving the lower extremity. TIME: 32 minutes of critical care time, independent of procedures, spent addressing the patient's septic shock, review of all data and collaboration with care team. Subjective Subjective The patient was seen and examined at the bedside this morning. Events from the last 24 hours have been reviewed. The patient is currently afebrile and maintaining appropriate oxygen saturations on 3 L/min. He remains on Levophed at 10 mcg/min to maintain hemodynamic stability. The patient is documented to be overall net +2 L for the hospitalization. White blood cell count is elevated at 25,000 with a hemoglobin of 8.1 g/dL. Creatinine has normalized. The patient did undergo cystoscopy yesterday with left stent placement. Objective Data Objective Data The patient's most recent lab work, culture data and imaging studies have all been personally reviewed. Blood and urine cultures are pending. Vital Signs: Vital Signs Temp Pulse Resp BP Pulse Ox O2 Del Method O2 Flow Rate 98.3 F 124 H 18 128/69 H 98 Nasal Cannula 3 06/29/25 01:00 06/29/25 06:00 06/29/25 06:00 06/29/25 06:00 06/29/25 06:00 06/29/25 06:00 06/29/25 06:00 Oxygen Flow Rate (L/min) 3 Oxygen Delivery Method Nasal Cannula Weight: 182 lb 5.156 oz Body Mass Index (BMI) 26.2 Intake & Output: Intake and Output for Last 24 Hours 06/27/25 06/28/25 06/29/25 23:59 23:59 23:59 Intake Total 1000 / 1000 2530.77 / 2549.57 231.60 / 231.60 Output Total 250 / 250 1100 / 1100 300 / 300 Balance 750 / 750 1430.77 / 1449.57 -68.40 / -68.40 Lab / Micro Data Attestation: I reviewed the patient's lab results. 06/29/25 03:16 06/29/25 03:16 Labs: Laboratory Results - last 24 hr 06/28/25 08:30: Sodium 141, Potassium 4.5, Chloride 107, Carbon Dioxide 24.2, Anion Gap 10, BUN 27 H, Creatinine 1.33 H, Estim Creat Clear Calc 51.84, Est GFR (MDRD) Non-Af 57 L, BUN/Creatinine Ratio 20.2 H, Glucose 149 H, Calcium 8.1 06/28/25 21:40: Vancomycin Trough 23.9 H 06/29/25 03:16: WBC 25.2 H, RBC 3.23 L, Hgb 8.1 L, Hct 28.1 L, MCV 87.0, MCH 25.1 L, MCHC 28.8 L, RDW Std Deviation 56.7 H, RDW Coeff of Opal 17.7 H, Plt Count 577 H, MPV 9.6, Immature Gran % (Auto) 0.900, Neut % (Auto) 95.9 H, Lymph % (Auto) 0.8 L, [place] % (Auto) 2.3, Eos % (Auto) 0.0, Baso % (Auto) 0.1, Absolute Neuts (auto) 24.1 H, Absolute Lymphs (auto) 0.19 L, Nucleated RBC % 0, Differential Comment , Sodium 142, Potassium 4.2, Chloride 108, Carbon Dioxide 23.5, Anion Gap 10, BUN 21 H, Creatinine 1.02, Estim Creat Clear Calc 67.59, Est GFR (MDRD) Non-Af 78, BUN/Creatinine Ratio 20.6 H, Glucose 141 H, Calcium 7.9 Micro: Microbiology 06/27/25 17:40 Urine, Clean Catch Legionella Antigen - Final 06/27/25 17:40 Urine, Clean Catch Streptococcus pneumoniae Antigen (M - Final Radiography Diagnostic Testing: Radiology Impression Echocardiogram 06/27/25 17:25 Interpretation Summary Normal LV size. Left ventricular systolic function is normal. The left ventricular ejection fraction is 55 %. There is moderate mitral annular calcification. Contrast injection was performed. Ordering Physician: Wagner Portillo Referring Physician: Wagner Portillo Performed By: Calvin Corral RCS Physical Exam Const alert and no apparent distress General Appearance: cooperative HEENT normocephalic and head/scalp atraumatic Eyes PERRL, EOMs intact bilaterally and conjunctivae normal Neck supple General: trachea midline and CVC in place Chest inspection of chest normal Resp normal respiratory effort Auscultation: Negative for rales, rhonchi or wheezes Cardio regular rate and regular rhythm GI normal to inspection, nondistended, normoactive bowel sounds Extremity no clubbing, cyanosis or edema Neuro CN's II-XII intact bilaterally, moves all extremities and no focal motor deficits Psych Mood & Affect: flat affect Charges/Coding Procedures Hospitalists Procedures: 41290 Critical Care 1st Hr
[2025-06-29] MEDS: APIXABAN 5 MG TABLET GT ×2 (08:40→20:55)
[2025-06-29] MEDS: Smx/Tmp Suspension 20 ML/UDC UDC GT (08:41)
[2025-06-29] MEDS: Cholecalciferol (VIT D3) 25 MCG TABLET (1,000 UNITS) GT (08:41)
--- NOTE | 2025-06-29 10:00 | PN.ID_ITS ---
Physical Exam Narrative Feeling better, no fever, BP improved, no abd pain, no n/v. Const alert and no apparent distress General Appearance: cooperative Resp normal air movement and clear to auscultation bilaterally Cardio regular rate and regular rhythm GI soft to palpation, non-tender and non-distended Skin no rashes or lesions noted ID ID: Route of nutrition/ use of supplements: [] Nutritional Intake: [] IV Site: [] Vigil Catheter: [] Assessment & Plan Assessment/Plan (1) UTI (urinary tract infection): (2) Septic shock: PLAN: Reviewed updated [facility] records, no bcx or ucx sent there; cdiff was neg. Urology following for infected stone. On empiric vanc/marry. Tolerated ceftriaxone here recently. 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 With acute illness, holding his bactrim proph. Taken for cystoscopy and L stent placement 06/28/[address] Bullard. If cxs show no MRSA, plan on stopping vanc tomorrow. Will follow
[2025-06-29 10:49] LABS: Vancomycin, Random Level 16.2 ug/mL (0.0-15.0)
--- NOTE | 2025-06-29 11:48 | CASEMGMT ---
Discharge Planning Updates sent to [facility] with note that pt may return over the weekend. Phone and fax requested. Charis Pittman DC Planning Asst.
--- NOTE | 2025-06-29 11:49 | PCM.RX.CS ---
Consult Antibiotic Management Pharmacy has been consulted to manage selected antibiotic: Vancomycin Type of Intervention Type of Consult: Follow-up Labs Labs: Sodium 142 mmol/L (133-145) 06/29/25 03:16 Potassium 4.2 mmol/L (3.3-5.1) 06/29/25 03:16 Chloride 108 mmol/L (98-108) 06/29/25 03:16 Carbon Dioxide 23.5 mmol/L (21.0-32.0) 06/29/25 03:16 Anion Gap 10 (5-15) 06/29/25 03:16 BUN 21 mg/dL (4-19) H 06/29/25 03:16 Creatinine 1.02 mg/dL (0.70-1.20) 06/29/25 03:16 Est GFR (MDRD) Non-Af 78 (>60) 06/29/25 03:16 BUN/Creatinine Ratio 20.6 RATIO (10-20) H 06/29/25 03:16 Glucose 141 mg/dL (70-99) H 06/29/25 03:16 Vancomycin Trough 23.9 ug/mL (5.0-15.0) H 06/28/25 21:40 Random Vancomycin 16.2 ug/mL (0.0-15.0) H 06/29/25 09:25 Microbiology Microbiology: Microbiology 06/27/25 17:40 Urine, Clean Catch Legionella Antigen - Final 06/27/25 17:40 Urine, Clean Catch Streptococcus pneumoniae Antigen (M - Final Estimated Creatinine Clearance Estimated Creatinine Clearance: 68 ML/MIN Goal Trough Goal Trough: 15-20 mcg/mL Pharmacy Plan for Drug Dosing Pharmacy Plan for Drug Dosing: Pharmacy Service will continue to monitor and adjust dosing as required. VANCOMYCIN LEVEL RECEIVED Current Vancomycin Dose: 1000 MG Q12H, LAST DOSE HELD Number of Doses Received: 3 (1 LD + 2 MD) Vancomycin Level: 16.2 Hours Since Last Dose: 23 HOURS Renal Function: SCr: 1.02, CRCL: 68 ML/MIN Renal Function Trend: STABLE Lab/Micro: BLOOD CULTURES: PENDING Vancomycin Plan/Comments: DECREASE DOSE AND FREQUENCY TO 750 MG Q12H WITH FIRST DOSE 06/29 @ 1200 DUE TO ELEVATED TROUGH PREVIOUSLY Pending Level: 06/30 @ 2330 Date/Time Labs Ordered Labs to be done on [date and time ordered]: Trough ordered 06/308
[2025-06-29] MEDS: Pivot 1.5 Cal 1,000 ML 60 ML GT (12:17)
[2025-06-29] MEDS: Vancomycin HCl 750 MG in 0.9% Normal Saline (250mL Bag) 250 ML 250 MG IV (12:18)
[2025-06-29] MEDS: RIFABUTIN 150 MG CAPSULE 300 MG PO (13:37)
[2025-06-29] MEDS: ETHAMBUTOL HCL 400 MG TABLET 1200 MG PO (13:37)
--- NOTE | 2025-06-29 15:35 | CASEMGMT ---
Social Work- SW participated in interdisciplinary rounds. Pt is not medically ready for discharge at this time. SW remains available to follow. Green sheet on chart. Plan: [place]; return EDMUND Aquino
--- NOTE | 2025-06-29 18:03 | PCM.PN.HOSP ---
Reason for Visit Chief Complaint: Malaise Subjective Subjective Patient was seen and examined today, he is off pressors. He is currently on 3 L of oxygen, I called [facility] to check on his urine culture but it is not yet resulted. Patient has been having episodic tachycardia with his A-fib, I increased his metoprolol dosage to 75 mg twice a day. Objective Data Objective Data Vital Signs: Vital Signs Temp Pulse Resp BP Pulse Ox O2 Del Method O2 Flow Rate 98.1 F 110 H 24 H 109/72 99 Nasal Cannula 3 06/29/25 14:00 06/29/25 17:00 06/29/25 17:00 06/29/25 17:00 06/29/25 17:00 06/29/25 17:00 06/29/25 17:00 Oxygen Flow Rate (L/min) 3 Oxygen Delivery Method Nasal Cannula Weight: 82.7 kg Body Mass Index (BMI) 26.2 Intake & Output: Intake and Output for Last 24 Hours 06/27/25 06/28/25 06/29/25 23:59 23:59 23:59 Intake Total 1000 / 1000 2530.77 / 2549.57 756.13 / 756.13 Output Total 250 / 250 1100 / 1100 950 / 950 Balance 750 / 750 1430.77 / 1449.57 -193.87 / -193.87 Lab / Micro Data 06/29/25 03:16 06/29/25 03:16 Labs: Laboratory Results - last 24 hr 06/28/25 21:40: Vancomycin Trough 23.9 H 06/29/25 03:16: WBC 25.2 H, RBC 3.23 L, Hgb 8.1 L, Hct 28.1 L, MCV 87.0, MCH 25.1 L, MCHC 28.8 L, RDW Std Deviation 56.7 H, RDW Coeff of Opal 17.7 H, Plt Count 577 H, MPV 9.6, Immature Gran % (Auto) 0.900, Neut % (Auto) 95.9 H, Lymph % (Auto) 0.8 L, [place] % (Auto) 2.3, Eos % (Auto) 0.0, Baso % (Auto) 0.1, Absolute Neuts (auto) 24.1 H, Absolute Lymphs (auto) 0.19 L, Nucleated RBC % 0, Differential Comment , Sodium 142, Potassium 4.2, Chloride 108, Carbon Dioxide 23.5, Anion Gap 10, BUN 21 H, Creatinine 1.02, Estim Creat Clear Calc 67.59, Est GFR (MDRD) Non-Af 78, BUN/Creatinine Ratio 20.6 H, Glucose 141 H, Calcium 7.9 06/29/25 09:25: Random Vancomycin 16.2 H Micro: Microbiology 06/27/25 17:40 Urine, Clean Catch Legionella Antigen - Final 06/27/25 17:40 Urine, Clean Catch Streptococcus pneumoniae Antigen (M - Final Physical Exam Narrative alert and no apparent distress General Appearance: cooperative, well kempt and well developed Orientation / Consciousness: awake, oriented to person and oriented to place HEENT normocephalic, head/scalp atraumatic and moist oral mucous membranes Eyes PERRL, EOMs intact bilaterally and conjunctivae normal Neck supple, no JVD, thyroid normal and no carotid bruits General: trachea midline Resp normal respiratory effort, no retractions, no use of accessory muscles and clear to auscultation bilaterally Auscultation: Negative for rales, rhonchi or wheezes Cardio S1 normal heart sound, S2 normal heart sound, no murmurs, no rub and no gallops Cardio Narrative: Heart rate and rhythm is irregular GI normal to inspection, nondistended, normoactive bowel sounds, soft to palpation, non-tender and non-distended GI Narrative: G-tube is in place Extremity Extremity Narrative: Generalized lower leg edema as noted Skin no rashes or lesions noted General Skin Exam: no breakdown Neuro CN's II-XII intact bilaterally, no focal motor deficits and no sensory deficits noted Sensorium / Orientation: awake, alert, oriented to person and oriented to place Speech: speech normal Psych affect normal Assessment & Plan Assessment/Plan (1) Septic shock: PLAN: Plan 1. Septic shock secondary to urinary tract infection-patient will remain on antibiotic coverage per infectious diseases #2 paroxysmal atrial fibrillation-patient is on rate control medications as well as Eliquis, patient is now on metoprolol 75 mg twice daily for rate control #3 chronic lower extremity osteomyelitis-antibiotic coverage per infectious diseases #4 chronic depression-patient is on Zoloft #5 chronic use of anticoagulant-patient is on Eliquis due to his paroxysmal A-fib Pneumonia was ruled out Total clinical time spent by myself addressing the patient's medical issues, reviewing all of his data, and collaborating with patient's care team: 35 minutes Charges/Coding Visit Charges Inpatient E&M: 19334 Subs Hosp L2
[2025-06-30] VITALS (19 sets, daily range): BP systolic 95–143; BP diastolic 53–93; PULSE 18–133; RESP 14–25; TEMP 36.4–37; O2SAT 95–100; BMI 26.5
[2025-06-30] MEDS: Vancomycin HCl 750 MG in 0.9% Normal Saline (250mL Bag) 250 ML 250 MG IV ×2 (00:18→12:17)
[2025-06-30] MEDS: 0.9% Saline Lock 10 ML Syringe IV (00:23)
[2025-06-30] MEDS: Meropenem 1 GM in 0.9% Normal Saline (100mL MB+) 100 ML IV ×3 (05:21→21:40)
[2025-06-30 05:29] LABS: Hematocrit 28.0 % (40-54); Hemoglobin 7.9 g/dL (13.0-16.5); Immature Granulocytes Count 0.080 X10^3/uL (0.0-0.0); Mean Corp Hgb Conc 28.2 g/dL (32-36); Mean Corpuscular Volume 87.0 fL (80-94); Mean Platelet Vol. 9.4 fl (6.2-12.0); NRBC Flagged by Analyzer 0 % (0-5); POSITIVE DIFFERENTIAL YES; Platelet Count 489 K/mm3 (150-450); RBC Distribution Width CV 17.7 % (11.6-14.6); RBC Distribution Width SD 56.7 fl (35.1-43.9); Red Blood Count 3.22 M/mm3 (4.6-6.2); White Blood Count 14.0 K/mm3 (4.4-11.0)
[2025-06-30 05:52] LABS: Anion Gap 7 (5-15); BUN 23 mg/dL (4-19); BUN/Creat Ratio 27.7 RATIO (10-20); Calcium,Total 7.7 mg/dL (7.6-11.0); Carbon Dioxide 26.7 mmol/L (21.0-32.0); Chloride 110 mmol/L (98-108); Estimated Creatinine Clearance 83.07 ml/min (50-250); Glucose 155 mg/dL (70-99); Potassium 4.1 mmol/L (3.3-5.1)
[2025-06-30] MEDS: Digoxin 250 MCG/ML Ampul 500 MCG IV (10:15)
[2025-06-30] MEDS: APIXABAN 5 MG TABLET GT ×2 (10:18→21:42)
[2025-06-30] MEDS: ETHAMBUTOL HCL 400 MG TABLET 1200 MG PO (10:19)
[2025-06-30] MEDS: RIFABUTIN 150 MG CAPSULE 300 MG PO (10:22)
[2025-06-30] MEDS: Cholecalciferol (VIT D3) 25 MCG TABLET (1,000 UNITS) GT (10:23)
[2025-06-30] MEDS: Pivot 1.5 Cal 1,000 ML 60 ML GT (12:07)
--- NOTE | 2025-06-30 12:39 | PN.HOSP_ITS ---
Reason for Visit Chief Complaint: Malaise Subjective Subjective Patient was seen and examined today, daughters at the bedside, his heart rate is tachycardic at times with his A-fib, I have elected to place him on digoxin. Patient appears to be stable for transfer to PCU for further care. Patient has no complaints of any shortness of breath at rest. Patient's white blood cell count has improved. Objective Data Objective Data Vital Signs: Vital Signs Temp Pulse Resp BP Pulse Ox O2 Del Method O2 Flow Rate 97.7 F L 18 L 18 95/58 L 100 Nasal Cannula 3 06/30/25 12:00 06/30/25 12:00 06/30/25 12:00 06/30/25 12:00 06/30/25 12:00 06/30/25 12:00 06/30/25 12:00 Oxygen Flow Rate (L/min) 3 Oxygen Delivery Method Nasal Cannula Weight: 84 kg Body Mass Index (BMI) 26.5 Intake & Output: Intake and Output for Last 24 Hours 06/28/25 06/29/25 06/30/25 23:59 23:59 23:59 Intake Total 2530.77 / 2549.57 1279.13 / 1279.13 942 / 942 Output Total 1100 / 1100 1700 / 1950 850 / 850 Balance 1430.77 / 1449.57 -420.87 / -670.87 92 / 92 Lab / Micro Data 06/30/25 05:15 06/30/25 05:15 Labs: Laboratory Results - last 24 hr 06/30/25 05:15: WBC 14.0 H, RBC 3.22 L, Hgb 7.9 L, Hct 28.0 L, MCV 87.0, MCH 24.5 L, MCHC 28.2 L, RDW Std Deviation 56.7 H, RDW Coeff of Opal 17.7 H, Plt Count 489 H, MPV 9.4, Immature Gran % (Auto) 0.600, Neut % (Auto) 92.5 H, Lymph % (Auto) 1.7 L, [place] % (Auto) 5.1, Eos % (Auto) 0.0, Baso % (Auto) 0.1, Absolute Neuts (auto) 12.9 H, Absolute Lymphs (auto) 0.24 L, Nucleated RBC % 0, Sodium 144, Potassium 4.1, Chloride 110 H, Carbon Dioxide 26.7, Anion Gap 7, BUN 23 H, Creatinine 0.83, Estim Creat Clear Calc 83.07, Est GFR (MDRD) Non-Af 93, B UN/Creatinine Ratio 27.7 H, Glucose 155 H, Calcium 7.7 Micro: Microbiology 06/27/25 18:24 Blood Culture (Wb) - Right Hand Blood Culture - Preliminary No growth in 48 hours. 06/27/25 18:24 Blood Culture (Wb) - Left Wrist Blood Culture - Preliminary No growth in 48 hours. 06/27/25 17:40 Urine, Clean Catch Legionella Antigen - Final 06/27/25 17:40 Urine, Clean Catch Streptococcus pneumoniae Antigen (M - Final Physical Exam Narrative lert and no apparent distress General Appearance: cooperative, well kempt and well developed Orientation / Consciousness: awake, oriented to person and oriented to place HEENT normocephalic, head/scalp atraumatic and moist oral mucous membranes Eyes PERRL, EOMs intact bilaterally and conjunctivae normal Neck supple, no JVD, thyroid normal and no carotid bruits General: trachea midline Resp normal respiratory effort, no retractions, no use of accessory muscles and clear to auscultation bilaterally Auscultation: Negative for rales, rhonchi or wheezes Cardio S1 normal heart sound, S2 normal heart sound, no murmurs, no rub and no gallops Cardio Narrative: Heart rate and rhythm is irregular GI normal to inspection, nondistended, normoactive bowel sounds, soft to palpation, non-tender and non-distended GI Narrative: G-tube is in place Extremity Extremity Narrative: Generalized lower leg edema as noted Skin no rashes or lesions noted General Skin Exam: no breakdown Neuro CN's II-XII intact bilaterally, no focal motor deficits and no sensory deficits noted Sensorium / Orientation: awake, alert, oriented to person and oriented to place Speech: speech normal Psych affect normal Assessment & Plan Assessment/Plan (1) Septic shock: PLAN: Plan 1. Septic shock secondary to urinary tract infection-patient will remain on antibiotic coverage per infectious diseases #2 paroxysmal atrial fibrillation-patient is on rate control medications as well as Eliquis, patient is now on metoprolol 75 mg twice daily for rate control and I have added a loading dose of digoxin today #3 chronic lower extremity osteomyelitis-antibiotic coverage per infectious diseases #4 chronic depression-patient is on Zoloft #5 chronic use of anticoagulant-patient is on Eliquis due to his paroxysmal A- fib Pneumonia was ruled out Total clinical time spent by myself addressing the patient's medical issues, reviewing all of his data, and collaborating with patient's care team: 35 minutes Charges/Coding Visit Charges Inpatient E&M: 63196 Subs Hosp L2
--- NOTE | 2025-06-30 13:28 | PN.CC_ITS ---
Objective Data Objective Data Vital Signs: Vital Signs Last response 3 Temperature 36.5 C L 06/30/25 12:00 Temperature Source Temporal 06/30/25 12:00 Pulse Rate 100 06/30/25 13:00 Pulse Strength Normal (2+) 06/30/25 10:00 Respiratory Rate 24 H 06/30/25 13:00 Respiratory Effort Normal, Non-Labored 06/30/25 12:00 Respiratory Depth Normal 06/30/25 12:00 Respiratory Pattern Normal 06/30/25 12:00 Blood Pressure 109/58 L 06/30/25 13:00 Blood Pressure Mean 75 06/30/25 13:00 Blood Pressure Source Monitor 06/30/25 13:00 Blood Pressure Position Semi-Fowlers 06/30/25 13:00 Blood Pressure Location Left Arm 06/30/25 13:00 Pulse Ox 98 06/30/25 13:00 Oxygen Delivery Method Nasal Cannula 06/30/25 13:00 Oxygen Flow Rate (L/min) 3 06/30/25 13:00 I&O: I&O Last 24 Hours 3 06/29/25 06/30/25 06/30/25 23:59 11:59 23:59 Intake Total 888 / 1279.13 942 / 942 Output Total 1400 / 1950 650 / 850 200 / 850 Balance -512 / -670.87 292 / 92 -200 / 92 I&O: Total Stay 3 06/27/25 14:30 thru 06/30/25 13:05 Intake Total 5751.90 Output Total 3900 Balance 1851.90 Current Meds Ordered / Administered: Current meds ordered / Administered 3 Generic Name Dose Route Start Last Admin Trade Name Freq PRN Reason Stop Dose Admin Acetaminophen 650 mg 06/27/25 17:17 Acetaminophen 325 Mg Tablet PO Q6H PRN PRN Pain 1-10 Or Fever>100.7 Albuterol/Ipratropium 3 ml 06/27/25 17:17 Ipratropium/Albuterol Sulfate 3 Ml Ampul.Neb INHALATION Q4H PRN PRN SHORTNESS OF BREATH Apixaban 5 mg 06/27/25 22:00 06/30/25 10:18 Apixaban 5 Mg Tablet GT 5 mg BID MICA Administration Ascorbic Acid 500 mg 06/28/25 10:00 06/30/25 10:23 Ascorbic Acid 500 Mg Tablet GT 500 mg DAILY MICA Administration Azithromycin 250 mg 06/28/25 11:30 06/30/25 10:21 Azithromycin 250 Mg Tablet PO 250 mg Q24 MICA Administration Calamine/Phenol 1 applic 06/28/25 22:00 06/30/25 05:41 Menthol/Lanolin/Calamine/Znox 113 Gm Tube TOPICAL Not Given TID [facility] Protocol Cholecalciferol 25 mcg 06/28/25 10:00 06/30/25 10:23 Cholecalciferol (Vit D3) 25 Mcg Tablet (1,000 Units) GT 25 mcg DAILY MICA Administration Ethambutol HCl 1,200 mg 06/29/25 13:00 06/30/25 10:19 Ethambutol Hcl 400 Mg Tablet PO 1,200 mg DAILY MICA Administration Ferrous Sulfate 325 mg 06/28/25 10:00 06/30/25 10:22 Ferrous Sulfate 300 Mg/5 Ml Udc GT 325 mg DAILY MCIA Administration Folic Acid 1 mg 06/28/25 08:00 06/30/25 10:23 Folic Acid 1 Mg Tablet GT 1 mg BREAKFAST MICA Administration Hydrocortisone Sodium Succinate 100 mg 06/27/25 18:00 06/30/25 12:08 Hydrocortisone Sod Succinate 100 Mg/2 Ml Vial IV 100 mg Q6 MICA Administration Vancomycin IV-PHARMACY TO DOSE 500 mls @ 250 mls/hr 06/27/25 17:17 1 each/ Sodium Chloride IV PRN PRN Rx to Dose Protocol Meropenem 1 gm/ Sodium 100 mls @ 33 mls/hr 06/27/25 22:00 06/30/25 08:31 Chloride IV Infused Q8 MICA Infusion Sodium Chloride 250 mls @ 15 mls/hr 06/27/25 17:22 IV .[id number] PRN Saline Flush Sodium Chloride 250 mls @ 15 mls/hr 06/27/25 17:22 IV .[id number] PRN Additional IVPB Infusion Norepinephrine Bitartrate 8 mg 250 mls @ 9.375 mls/hr 06/28/25 10:00 06/30/25 13:22 / Sodium Chloride CONT INF Not Given .[id number] MICA Protocol 5 MCG/MIN Lactose 1,000 mls @ 60 mls/hr 06/29/25 10:10 06/30/25 12:07 Pivot 1.5 Deny GT 60 mls/hr .[id number] MICA Administration Vancomycin HCl 750 mg/ Sodium 265 mls @ 250 mls/hr 06/29/25 12:00 06/30/25 12:17 Chloride IV 250 mls/hr Q12H MICA Administration Lansoprazole 30 mg 06/28/25 10:00 06/30/25 10:19 Lansoprazole 15 Mg Capsule. GT 30 mg DAILY MICA Administration Metoprolol Tartrate 5 mg 06/27/25 17:17 Metoprolol Tartrate 5 Mg/5 Ml Vial IV Q6 PRN HR greater than 120 Protocol Metoprolol Tartrate 75 mg 06/29/25 22:00 06/30/25 10:32 Metoprolol Tartrate 25 Mg Tablet GT 75 mg BID MICA Administration Protocol Montelukast Sodium 10 mg 06/27/25 22:00 06/29/25 20:55 Montelukast 10 Mg Tablet GT 10 mg QHS MICA Administration Nystatin 1 applic 06/27/25 22:00 06/30/25 10:23 Nystatin Powder 15gm Bottle TOPICAL 1 applic BID MICA Administration Protocol Ondansetron HCl 4 mg 06/27/25 17:17 Ondansetron Odt 4 Mg Tablet PO Q6H PRN Nausea/Vomiting Ondansetron HCl 4 mg 06/27/25 18:30 Ondansetron 4 Mg/2 Ml Vial IV Q4H PRN PRN NAUSEA/VOMITING Rifabutin 300 mg 06/29/25 13:00 06/30/25 10:22 Rifabutin 150 Mg Capsule PO 06/30/25 23:59 300 mg DAILY MICA Administration Rifampin 600 mg 07/01/25 10:00 Rifampin 300 Mg Capsule PO DAILY MICA Sertraline HCl 50 mg 06/28/25 10:00 06/30/25 10:20 Sertraline 50 Mg Tablet GT 50 mg DAILY MICA Administration Sodium Chloride 10 - 40 ml 06/27/25 17:22 06/27/25 19:57 0.9 % Nacl (Sterile) Posiflush 10 Ml IV 10 ml UD PRN Administration Port access or dressing change Sodium Chloride 10 - 40 ml 06/27/25 17:22 06/30/25 00:23 0.9% Saline Lock 10 Ml Syringe IV 10 ml UD PRN Administration Multilumen/Betts Flush Sodium Chloride 10 - 40 ml 06/27/25 17:22 0.9% Saline Lock 10 Ml Syringe IV UD PRN SALINE FLUSH Trimethoprim/Sulfamethoxazole 20 ml 06/27/25 19:00 06/29/25 08:41 Smx/Tmp Suspension 20 Ml/Udc Udc GT 20 ml [id number] [facility] Administration Vancomycin Protocol 1 lab 06/30/25 22:30 Vancomycin Trough/Random Due [facility] 07/01/25 00:30 DAILY [facility] Lab / Micro Data 06/30/25 05:15 06/30/25 05:15 Labs: Laboratory Results - last 24 hr 06/30/25 05:15: WBC 14.0 H, RBC 3.22 L, Hgb 7.9 L, Hct 28.0 L, MCV 87.0, MCH 24.5 L, MCHC 28.2 L, RDW Std Deviation 56.7 H, RDW Coeff of Opal 17.7 H, Plt Count 489 H, MPV 9.4, Immature Gran % (Auto) 0.600, Neut % (Auto) 92.5 H, Lymph % (Auto) 1.7 L, [place] % (Auto) 5.1, Eos % (Auto) 0.0, Baso % (Auto) 0.1, Absolute Neuts (auto) 12.9 H, Absolute Lymphs (auto) 0.24 L, Nucleated RBC % 0, Sodium 144, Potassium 4.1, Chloride 110 H, Carbon Dioxide 26.7, Anion Gap 7, BUN 23 H, Creatinine 0.83, Estim Creat Clear Calc 83.07, Est GFR (MDRD) Non-Af 93, B UN/Creatinine Ratio 27.7 H, Glucose 155 H, Calcium 7.7 Micro: Microbiology 06/27/25 18:24 Blood Culture (Wb) - Right Hand Blood Culture - Preliminary No growth in 48 hours. 06/27/25 18:24 Blood Culture (Wb) - Left Wrist Blood Culture - Preliminary No growth in 48 hours. Assessment and Plan . Assessment and plan: Chart and data reviewed Condition d/w ICU staff HD stable - vasopressors off CX reviewed Downgrading out of ICU We are available as needed.
[2025-07-01] VITALS (7 sets, daily range): BP systolic 118–138; BP diastolic 68–88; PULSE 79–115; RESP 14–22; TEMP 36.4–36.6; O2SAT 93–99; BMI 26.9
[2025-07-01] MEDS: 0.9 % NaCl (Sterile) Posiflush 10 mL IV ×2 (00:47→05:21)
[2025-07-01 00:57] LABS: Vancomycin, Trough Level 18.6 ug/mL (5.0-15.0)
[2025-07-01] MEDS: Vancomycin HCl 750 MG in 0.9% Normal Saline (250mL Bag) 250 ML 250 MG IV ×2 (01:11→11:27)
--- NOTE | 2025-07-01 01:31 | PCM.RX.CS ---
Consult Antibiotic Management Pharmacy has been consulted to manage selected antibiotic: Vancomycin Type of Intervention Type of Consult: Follow-up Labs Labs: Sodium 144 mmol/L (133-145) 06/30/25 05:15 Potassium 4.1 mmol/L (3.3-5.1) 06/30/25 05:15 Chloride 110 mmol/L (98-108) H 06/30/25 05:15 Carbon Dioxide 26.7 mmol/L (21.0-32.0) 06/30/25 05:15 Anion Gap 7 (5-15) 06/30/25 05:15 BUN 23 mg/dL (4-19) H 06/30/25 05:15 Creatinine 0.83 mg/dL (0.70-1.20) 06/30/25 05:15 Est GFR (MDRD) Non-Af 93 (>60) 06/30/25 05:15 BUN/Creatinine Ratio 27.7 RATIO (10-20) H 06/30/25 05:15 Glucose 155 mg/dL (70-99) H 06/30/25 05:15 Vancomycin Trough 18.6 ug/mL (5.0-15.0) H 06/30/25 00:15 Random Vancomycin 16.2 ug/mL (0.0-15.0) H 06/29/25 09:25 Microbiology Microbiology: Microbiology 06/27/25 18:24 Blood Culture (Wb) - Right Hand Blood Culture - Preliminary No growth in 48 hours. 06/27/25 18:24 Blood Culture (Wb) - Left Wrist Blood Culture - Preliminary No growth in 48 hours. 06/27/25 17:40 Urine, Clean Catch Legionella Antigen - Final 06/27/25 17:40 Urine, Clean Catch Streptococcus pneumoniae Antigen (M - Final Goal Trough Goal Trough: 15-20 mcg/mL Pharmacy Plan for Drug Dosing Pharmacy Plan for Drug Dosing: Pharmacy Service will continue to monitor and adjust dosing as required. TROUGH 18.6 @ 12 HOURS. NO CHANGES, FOLLOW UP TROUGH IN 2 DAYS Follow-Up Labs Follow-Up Labs: Trough: Vancomycin Date/Time Labs Ordered Labs to be done on [date and time ordered]: 07/02 @ 1023
[2025-07-01] MEDS: Meropenem 1 GM in 0.9% Normal Saline (100mL MB+) 100 ML IV ×3 (05:21→21:13)
[2025-07-01] MEDS: Pivot 1.5 Cal 1,000 ML 60 ML GT (06:32)
[2025-07-01] MEDS: Cholecalciferol (VIT D3) 25 MCG TABLET (1,000 UNITS) GT (08:26)
[2025-07-01] MEDS: APIXABAN 5 MG TABLET GT ×2 (08:26→21:12)
[2025-07-01] MEDS: ETHAMBUTOL HCL 400 MG TABLET 1200 MG PO (08:29)
[2025-07-01] MEDS: 0.9% Normal Saline (250mL Bag) 250 ML 15 ML IV (14:37)
--- NOTE | 2025-07-01 17:05 | PN.HOSP_ITS ---
Reason for Visit Chief Complaint: Malaise Subjective Subjective Patient was seen and examined today, he voices no complaints to this examiner. Patient's blood cultures show no growth in 48 hours. I called [facility] and the lab confirms that the patient's urine culture on 06/27/2025 shows normal laura. Objective Data Objective Data Vital Signs: Vital Signs Temp Pulse Resp BP Pulse Ox O2 Del Method O2 Flow Rate 97.6 F L 79 18 138/85 H 99 Nasal Cannula 3 07/01/25 14:00 07/01/25 14:00 07/01/25 14:00 07/01/25 14:00 07/01/25 14:00 07/01/25 14:49 07/01/25 14:49 Oxygen Flow Rate (L/min) 3 Oxygen Delivery Method Nasal Cannula Weight: 85.3 kg Body Mass Index (BMI) 26.9 Intake & Output: Intake and Output for Last 24 Hours 06/29/25 06/30/25 07/01/25 23:59 23:59 23:59 Intake Total 1279.13 / 1279.13 1532 / 1532 2285 / 2285 Output Total 1700 / 1950 1300 / 1300 750 / 750 Balance -420.87 / -670.87 232 / 232 1535 / 1535 Lab / Micro Data 06/30/25 05:15 06/30/25 05:15 Labs: Laboratory Results - last 24 hr 06/30/25 00:15: Vancomycin Trough 18.6 H Micro: Microbiology 06/27/25 18:24 Blood Culture (Wb) - Right Hand Blood Culture - Preliminary No growth in 48 hours. 06/27/25 18:24 Blood Culture (Wb) - Left Wrist Blood Culture - Preliminary No growth in 48 hours. 06/27/25 17:40 Urine, Clean Catch Legionella Antigen - Final 06/27/25 17:40 Urine, Clean Catch Streptococcus pneumoniae Antigen (M - Final Physical Exam Narrative lert and no apparent distress General Appearance: cooperative, well kempt and well developed Orientation / Consciousness: awake, oriented to person and oriented to place HEENT normocephalic, head/scalp atraumatic and moist oral mucous membranes Eyes PERRL, EOMs intact bilaterally and conjunctivae normal Neck supple, no JVD, thyroid normal and no carotid bruits General: trachea midline Resp normal respiratory effort, no retractions, no use of accessory muscles and clear to auscultation bilaterally Auscultation: Negative for rales, rhonchi or wheezes Cardio S1 normal heart sound, S2 normal heart sound, no murmurs, no rub and no gallops Cardio Narrative: Heart rate and rhythm is irregular GI normal to inspection, nondistended, normoactive bowel sounds, soft to palpation, non-tender and non-distended GI Narrative: G-tube is in place Extremity Extremity Narrative: Generalized lower leg edema as noted Skin no rashes or lesions noted General Skin Exam: no breakdown Neuro CN's II-XII intact bilaterally, no focal motor deficits and no sensory deficits noted Sensorium / Orientation: awake, alert, oriented to person and oriented to place Speech: speech normal Psych affect normal Assessment & Plan Assessment/Plan (1) Septic shock: PLAN: Plan 1. Septic shock secondary to urinary tract infection-patient will remain on antibiotic coverage per infectious diseases, blood negative so far, urine culture obtained at [facility] showed no growth #2 paroxysmal atrial fibrillation-patient is on rate control medications as well as Eliquis, patient is now on metoprolol 75 mg twice daily for rate control and I have also placed him on Lanoxin #3 chronic lower extremity osteomyelitis-antibiotic coverage per infectious diseases #4 chronic depression-patient is on Zoloft #5 chronic use of anticoagulant-patient is on Eliquis due to his paroxysmal A- fib Pneumonia was ruled out Total clinical time spent by myself addressing the patient's medical issues, reviewing all of his data, and collaborating with patient's care team: 35 minutes Charges/Coding Visit Charges Inpatient E&M: 76348 Subs Hosp L2
[2025-07-01] MEDS: 0.9% Saline Lock 10 ML Syringe IV (21:22)
[2025-07-02] MEDS: Vancomycin HCl 750 MG in 0.9% Normal Saline (250mL Bag) 250 ML 250 MG IV (01:04)
[2025-07-02] MEDS: Pivot 1.5 Cal 1,000 ML 60 ML GT (01:15)
[2025-07-02 01:24] VITALS: BMI 27.1
[2025-07-02 04:21] VITALS: BP 133/82; PULSE 72; RESP 18; TEMP 36.6; O2SAT 95
[2025-07-02] MEDS: Meropenem 1 GM in 0.9% Normal Saline (100mL MB+) 100 ML IV (05:44)
--- NOTE | 2025-07-02 09:04 | CASEMGMT ---
Discharge Planning Updates sent to [facility]. Charis Pittman DC Planning Asst
[2025-07-02 09:18] LABS: Hematocrit 29.3 % (40-54); Hemoglobin 8.0 g/dL (13.0-16.5); Immature Granulocytes Count 0.120 X10^3/uL (0.0-0.0); Mean Corp Hgb Conc 27.3 g/dL (32-36); Mean Corpuscular Volume 88.8 fL (80-94); Mean Platelet Vol. 9.9 fl (6.2-12.0); NRBC Flagged by Analyzer 0 % (0-5); POSITIVE DIFFERENTIAL YES; Platelet Count 537 K/mm3 (150-450); RBC Distribution Width CV 17.7 % (11.6-14.6); RBC Distribution Width SD 57.2 fl (35.1-43.9); Red Blood Count 3.30 M/mm3 (4.6-6.2); White Blood Count 12.2 K/mm3 (4.4-11.0)
[2025-07-02 09:31] VITALS: BP 97/74; PULSE 90; RESP 20; TEMP 36.7; O2SAT 96
[2025-07-02] MEDS: Cholecalciferol (VIT D3) 25 MCG TABLET (1,000 UNITS) GT (09:42)
[2025-07-02] MEDS: APIXABAN 5 MG TABLET GT (09:42)
[2025-07-02 09:45] LABS: Anion Gap 5 (5-15); BUN 31 mg/dL (4-19); BUN/Creat Ratio 47.7 RATIO (10-20); Calcium,Total 7.4 mg/dL (7.6-11.0); Carbon Dioxide 31.2 mmol/L (21.0-32.0); Chloride 110 mmol/L (98-108); Estimated Creatinine Clearance 86.18 ml/min (50-250); Glucose 161 mg/dL (70-99); Potassium 4.0 mmol/L (3.3-5.1)
[2025-07-02] MEDS: ETHAMBUTOL HCL 400 MG TABLET 1200 MG PO (09:50)
[2025-07-02 11:27] VITALS: BP 116/77; PULSE 79; O2SAT 94
[2025-07-02 11:28] VITALS: BP 116/77; PULSE 79
--- NOTE | 2025-07-02 12:28 | PN.ID_ITS ---
Physical Exam Narrative Feeling better, no abd pain, mild nausea and loose stool. Const alert and no apparent distress General Appearance: cooperative Resp normal air movement and clear to auscultation bilaterally Cardio regular rate and regular rhythm GI soft to palpation, non-tender and non-distended Skin no rashes or lesions noted ID ID: Route of nutrition/ use of supplements: [] Nutritional Intake: [] IV Site: [] Vigil Catheter: [] Assessment & Plan Assessment/Plan (1) UTI (urinary tract infection): (2) Septic shock: PLAN: Reviewed updated [facility] records, ucx less than 10k normal laura; cdiff was neg. Urology following for infected stone. On empiric marry. Tolerated ceftriaxone here recently. 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 Ok to restart bactrim proph. Taken for cystoscopy and L stent placement 06/28/[address] Bullard. Will narrow abx to po cefdinir for 6 more days. Recommend he followup with [facility] ID to determine stop date for his mycobacteria treatment. Will follow as needed
--- NOTE | 2025-07-02 13:33 | PCM.TXEXTCAR ---
Diet Diet Order/Speech Therapy: INPATIENT Hospital Diet / Speech Therapy Order(s) 06/28/25 14:51 Diet: Regular - General Food consistency:: Regular Liquid Consistency:: Regular/Thin Diet Comments: cut up meats Routine Orders/Code Status Routine Lab Work: CBC and BMP Code Status: Full Code DC O2, CPAP, BIPAP needs Home O2 Discharge instructions: No Wound(s) Left Forearm: Wound Type: Skin Tear rt fa: Wound Type: Skin Tear Therapies Physical Therapy: Eval and Treat Occupational Therapy: Eval and Treat Problem/Diagnosis (1) UTI (urinary tract infection): Status: Acute Code(s): N39.0 - Urinary tract infection, site not specified (2) Septic shock: Status: Acute Code(s): A41.9 - Sepsis, unspecified organism; R65.21 - Severe sepsis with septic shock Allergies/Procedures Done in Hospital Allergies monosodium glutamate Allergy (Verified 06/13/25 12:58) Abd cramps/diarrhea Penicillins (PCN) Allergy (Verified 06/13/25 12:58) Rash allopurinol Adverse Reaction (Unknown, Verified 06/13/25 12:58) cough morphine Adverse Reaction (Verified 06/13/25 12:58) Other tamsulosin (From Flomax) Adverse Reaction (Verified 06/13/25 12:58) Other Procedures: None Type of Care/Length of Stay Estimated LOS: More Than 30 Days Type of Care Needed: Intermediate Rehab Potential: Fair Prognosis: Fair Additional Orders/Day of Discharge Day of Discharge: 07/02/25 Dietary and Speech Recommendations Dietitian Recommendations/Changes: 1. Continue regular with meats cut up. 2. Continue TF via PEG: Pivot 1.5Cal goal rate 60ml/hr with 165ml water flushes every 4 hours to provide 2160 calories, 135g protein, and 2070ml total free water per day. Will start at 20ml/hr and increase by 20ml every 8-12 until goal rate is achieved. Monitor renal labs. 3. Resume Nutren 2.0 when pt returns to SNF. Discharge Plan Admission Admit Date/Time: 06/27/25 16:57 Attending Provider: Zion Unger Primary Care Provider: Tanya Pettit Consulting Providers: Wagner Portillo; Chuckie Alicia; Rowdy Kraft; Gt De Los Santos; Robert Thao; Yoav Carrington; Mo Boone; Dmitriy Blankenship; Terry Russell; Yohana Rivera; Deion Ta; Pierre Lozano; [place]; Sylvie Peterson; Gabe Catherine; Divine Cantu; Willem Tong; Cruz Serna; Leon Valente; Edgar Perez; Omar House; Luna Resendez; Popeye Mancini; Monroe Persaud; Juventino Masterson; Devon Bullard; J Luis Hill Instructions Additional Instructions / Restrictions: Plan for lithotripsy this 07/06/2025. Was just started on digoxin, have close monitoring of levels and electrolytes as an outpatient Discharge Orders/Prescriptions Prescriptions: New digoxin 250 mcg (0.25 mg) Tablet 250 mcg PO DAILY 30 Days Qty: 0 0RF cefdinir 300 mg Capsule 300 mg PO Q12 6 Days Qty: 0 0RF metoprolol tartrate 25 mg Tablet 75 mg G-tube BID 30 Days Qty: 0 0RF Continued pantoprazole 40 mg tablet,delayed release (DR/EC) 40 mg PO DAILY Prolia 60 mg/mL syringe 60 mg subcut [id number] Adult 50 Plus Probiotic 4 billion cell capsule 4,000 mmu cells PO DAILY Rx Instructions: administer with a meal montelukast [Singulair] 10 mg tablet 10 mg feeding tube QHS azithromycin 250 mg tablet 250 mg feeding tube QHS rifabutin 150 mg capsule 300 mg feeding tube DAILY prednisone 10 mg Tablet 20 mg feeding tube DAILYCM cholecalciferol (vitamin D3) [Vitamin D3] 25 mcg (1,000 unit) tablet 25 mcg feeding tube DAILY Asmanex Twisthaler 220 mcg/ actuation (60) aerosol powdr breath activated 1 inh inhalation BID sertraline 50 mg tablet 50 mg feeding tube DAILY nystatin 100,000 unit/gram powder 1 applic topical BID ipratropium-albuterol 0.5 mg-3 mg(2.5 mg base)/3 mL solution for nebulization 3 ml inhalation Q4H PRN Patient Comments: [NO ORIGINAL SIG] ferrous sulfate 300 mg (60 mg iron)/5 mL liquid 325 mg feeding tube DAILY folic acid 1 mg tablet 1 mg feeding tube DAILY sulfamethoxazole-trimethoprim [Bactrim DS] 800-160 mg tablet 1 tab feeding tube MOWEFR Rx Instructions: take every MWF ondansetron 4 mg Tablet,Disintegrating 4 mg PO Q6H PRN (Reason: Nausea/Vomiting) ascorbic acid (vitamin C) 500 mg capsule 500 mg PO DAILY Rx Instructions: PEG tube ethambutol 400 mg tablet 1,200 mg feeding tube Q24H Nutren 2.0 0.08 gram-2 kcal/mL liquid 60 ml feeding tube .24 Rx Instructions: 60ml/hr x 24 hours acetaminophen 325 mg Tablet 650 mg feeding tube Q6H PRN PRN (Reason: Pain 1-10 Or Fever>100.7) Eliquis 5 mg Tablet 5 mg feeding tube BID Discontinued metoprolol tartrate 50 mg Tablet 50 mg G-tube BID Qty: 0 0RF Referrals / Follow Up: Wilver,Tanya, DO [Primary Care Provider] - Within 1 Week Disposition Disposition (needs filled in before D/C Order can be placed): NonSkilled NH/Intermed Care
--- NOTE | 2025-07-02 14:46 | PHA.DC.MR.R ---
Pharmacy [place] Med Reconciliation Pharmacy Service has performed discharge medication reconciliation for this patient. The patient's discharge medication list was reviewed for discrepancies and discrepancies were resolved. Medications at Discharge Home Medications denosumab 60 mg/mL subcutaneous syringe (Prolia) 60 mg subcut [id number] low calcuim 07/14/21 pantoprazole 40 mg tablet,delayed release 40 mg PO DAILY reflux 07/14/21 lactobacillus combination no.9 4 billion cell capsule (Adult 50 Plus Probiotic) 4,000 mmu cells PO DAILY supplement 01/01/22 montelukast 10 mg tablet (Singulair) 10 mg feeding tube QHS allergies 05/12/23 ascorbic acid (vitamin C) 500 mg capsule 500 mg PO DAILY supple 10/10/24 prednisone 10 mg tablet 20 mg feeding tube DAILYCM steriod 05/21/25 cholecalciferol (vitamin D3) 25 mcg (1,000 unit) tablet (Vitamin D3) 25 mcg feeding tube DAILY supplement 05/23/25 ferrous sulfate 300 mg (60 mg iron)/5 mL oral liquid 325 mg feeding tube DAILY supplemetn 05/23/25 folic acid 1 mg tablet 1 mg feeding tube DAILY supplement 05/23/25 ipratropium 0.5 mg-albuterol 3 mg (2.5 mg base)/3 mL nebulization soln 3 ml inhalation Q4H PRN pneumonuia 05/23/25 mometasone 220 mcg/actuation(60 doses) breath activated powder inhaler (Asmanex Twisthaler) 1 inh inhalation BID sob 05/23/25 nystatin 100,000 unit/gram topical powder 1 applic topical BID yeast 05/23/25 ondansetron 4 mg disintegrating tablet 4 mg PO Q6H PRN Nausea/Vomiting 05/23/25 sertraline 50 mg tablet 50 mg feeding tube DAILY depression 05/23/25 sulfamethoxazole 800 mg-trimethoprim 160 mg tablet (Bactrim DS) 1 tab feeding tube MOWEFR ATB 05/23/25 ethambutol 400 mg tablet 1,200 mg feeding tube Q24H n/a 06/11/25 azithromycin 250 mg tablet 250 mg feeding tube QHS antibiotic 06/12/25 rifabutin 150 mg capsule 300 mg feeding tube DAILY antibacterial 06/12/25 acetaminophen 325 mg tablet 650 mg feeding tube Q6H PRN PRN Pain 1-10 Or Fever>100.7 06/27/25 apixaban 5 mg tablet (Eliquis) 5 mg feeding tube BID Afib 06/27/25 nutritional supplements 0.08 gram-2 kcal/mL liquid for tube feed (Nutren 2.0) 60 ml feeding tube .24 Nutrition 06/27/25 cefdinir 300 mg capsule 300 mg PO Q12 6 days #0 caps 07/02/25 digoxin 250 mcg (0.25 mg) tablet 250 mcg PO DAILY 30 days #0 tabs 07/02/25 metoprolol tartrate 25 mg tablet 75 mg (3 x 25 mg) G-tube BID 30 days #0 tabs 07/02/25
--- NOTE | 2025-07-02 14:57 | CASEMGMT ---
Addendum entered by Elke Alex 07/02/25 16:09: Social Work Pt's transportation got pushed to 7:30pm. SW let [facility] know the new time via [employer], and also called the and let her know the new pickup time. SW let the pt know as well. KALLI Pascual Original Note: Social Work Pt is ready for d/c back to [facility]. SW set up a 530pm ambulance to take pt back to [facility]. SW let pt's RN know time. SW sent the transfer to extended care and med list to [facility] via [employer], with the pickup time. SW let pt know pickup time, and also called pt's , let her know the pickup time of 530pm. No further needs, pt to [facility], intermediate level of care, today. KALLI Pascual
[2025-07-02 16:19] VITALS: BP 117/62; PULSE 84; RESP 20; TEMP 36.6; O2SAT 92
--- NOTE | 2025-07-02 18:12 | NURSING ---
Report called at this time to [facility].
--- NOTE | 2025-07-03 12:07 | PCM.DC.SUM ---
Providers Date of Admission: 06/27/25 Date of Discharge: 07/02/25 Primary Care Physician: Dr. Tanya Pettit, Consultations 06/27/25 17:17 Consult: Urology Routine Consulting Provider: Devon Bullard Reason for Consult: UPJ stone. Sepsis. EMERGENT Consult: No Notified: Yes Date Notified: 06/28/25 Time Notified: 07:26 Method of Notification: Answering Service 06/28/25 07:45 Consult: Infectious Disease Routine Consulting Provider: Chuckie Alicia Reason for Consult: Antibiotic coverage EMERGENT Consult: No Notified: Yes Date Notified: 06/28/25 Time Notified: 07:45 Method of Notification: Verbal 06/28/25 09:54 Consult: Hydro Operator / Pulmonary Medicine Routine Consulting Provider: Intensivists/Pulmonary Med Reason for Consult: sepsis EMERGENT Consult: No Notified: Yes Date Notified: 06/28/25 Time Notified: 09:55 Method of Notification: Verbal Reason For Visit: SEPSIS Diagnosis Discharge Diagnosis (1) UTI (urinary tract infection): Status: Acute Code(s): N39.0 - Urinary tract infection, site not specified (2) Septic shock: Status: Acute Code(s): A41.9 - Sepsis, unspecified organism; R65.21 - Severe sepsis with septic shock Medications at Discharge Home Medications denosumab 60 mg/mL subcutaneous syringe (Prolia) 60 mg subcut [id number] low calcuim 07/14/21 pantoprazole 40 mg tablet,delayed release 40 mg PO DAILY reflux 07/14/21 lactobacillus combination no.9 4 billion cell capsule (Adult 50 Plus Probiotic) 4,000 mmu cells PO DAILY supplement 01/01/22 montelukast 10 mg tablet (Singulair) 10 mg feeding tube QHS allergies 05/12/23 ascorbic acid (vitamin C) 500 mg capsule 500 mg PO DAILY supple 10/10/24 prednisone 10 mg tablet 20 mg feeding tube DAILYCM steriod 05/21/25 cholecalciferol (vitamin D3) 25 mcg (1,000 unit) tablet (Vitamin D3) 25 mcg feeding tube DAILY supplement 05/23/25 ferrous sulfate 300 mg (60 mg iron)/5 mL oral liquid 325 mg feeding tube DAILY supplemetn 05/23/25 folic acid 1 mg tablet 1 mg feeding tube DAILY supplement 05/23/25 ipratropium 0.5 mg-albuterol 3 mg (2.5 mg base)/3 mL nebulization soln 3 ml inhalation Q4H PRN pneumonuia 05/23/25 mometasone 220 mcg/actuation(60 doses) breath activated powder inhaler (Asmanex Twisthaler) 1 inh inhalation BID sob 05/23/25 nystatin 100,000 unit/gram topical powder 1 applic topical BID yeast 05/23/25 ondansetron 4 mg disintegrating tablet 4 mg PO Q6H PRN Nausea/Vomiting 05/23/25 sertraline 50 mg tablet 50 mg feeding tube DAILY depression 05/23/25 sulfamethoxazole 800 mg-trimethoprim 160 mg tablet (Bactrim DS) 1 tab feeding tube MOWEFR ATB 05/23/25 ethambutol 400 mg tablet 1,200 mg feeding tube Q24H n/a 06/11/25 azithromycin 250 mg tablet 250 mg feeding tube QHS antibiotic 06/12/25 rifabutin 150 mg capsule 300 mg feeding tube DAILY antibacterial 06/12/25 acetaminophen 325 mg tablet 650 mg feeding tube Q6H PRN PRN Pain 1-10 Or Fever>100.7 06/27/25 apixaban 5 mg tablet (Eliquis) 5 mg feeding tube BID Afib 06/27/25 nutritional supplements 0.08 gram-2 kcal/mL liquid for tube feed (Nutren 2.0) 60 ml feeding tube .24 Nutrition 06/27/25 cefdinir 300 mg capsule 300 mg PO Q12 6 days #0 caps 07/02/25 digoxin 250 mcg (0.25 mg) tablet 250 mcg PO DAILY 30 days #0 tabs 07/02/25 metoprolol tartrate 25 mg tablet 75 mg (3 x 25 mg) G-tube BID 30 days #0 tabs 07/02/25 Hospital Course Operations - (Cystoscopy with left ureteral stent) Procedures None Summary of Care Provided Minutes Spent on Discharge: 32 Hospital Course: Per HPI: YARON BUTLER, is a 74 M who presents presents from skilled n nursing facility to [facility] with feeling of not feeling well, nausea vomiting fever. Patient was just discharged on 6 on the third with sepsis secondary to UTI. During his hospitalization he had cystoscopy with left ureteral stent placement on 13 June. Patient completed course of antibiotics with meropenem. He had noted wide-complex tachycardia while he was in the hospital but felt by cardiology to be A-fib with underlying right bundle branch block. Patient was discharged to correction facility in stable condition of the patient still stated he felt nauseated when he left. So he presented to the outside hospital emergency room where he was febrile with temp of 100.2 Fahrenheit. Urinalysis was concerning for urinary tract infection with his recent hospitalization patient did receive ceftriaxone as well as vancomycin. CT of the abdomen pelvis showed new obstructing 8 mm stone at the left UPJ concerning for likely septic stone. Patient was hypotensive there and did have a right IJ triple-lumen catheter placed and follow-up x-ray showed that was terminating at the superior vena cava/right atrium. Did note mild pulmonary vascular congestion right upper lobe left lower lobe pulmonary edema. Given the patient had just been discharged here 3 days prior, patient was transferred back over here. He was not requiring any pressors at that time. Hospital Course: 1. Septic shock secondary to UTI in the setting of left nephrolithiasis?74-year-old male presented to the hospital with nausea, vomiting, and fever. He was found to have a UTI with an 8 mm stone at the left UPJ. Urology was consulted and placed a ureteral stent with plan for lithotripsy on Wednesday. Infectious disease was consulted recommended 6 more days of cefdinir on discharge. I discussed with him the plan for discharge and he expressed understanding of the risks and benefits of going back to the senior living and he would like to go today. He will need follow-up as an outpatient for lithotripsy on Wednesday. 2. Paroxysmal A-fib?he has known A-fib and is on metoprolol at 50 mg p.o. twice daily however this was not controlling his heart rate during his hospitalization so he was increased to 75 mg p.o. twice daily with the addition of digoxin at 250 mcg daily. I do recommend outpatient monitoring of his electrolytes and renal function in the setting of digoxin use. As well as outpatient cardiology evaluation after his lithotripsy. Will continue with Echo during his hospitalization with an EF of 55% on 06/28/2025. 3. Chronic lower extremity osteomyelitis, depression, anxiety, iron deficiency anemia, GERD are all chronic medical conditions which complicate his care. His home medications were continued where appropriate Physical Exam Narrative General: Alert, Oriented x3, Cooperative, No apparent distress HEENT: Atraumatic, PERRLA, EOMI, Normocephalic Oral: Moist Mucosa Neck: Supple, No JVD Lungs: Diminished, Normal air movement, No rhonchi, No wheeze, No rales Cardiovascular: Irregular rate and rhythm, Normal S1, Normal S2, No murmurs Abdomen: Soft, Non Tender, Non-Distended, No Hepato-splenomegaly, G-tube Extremities: Edema, Capillary Refill Less than 3 Seconds Skin: No rashes, No breakdown Musculoskeletal: No Tenderness to Palpation of Joints or Extremities Neurological: No focal neurological deficits, Motor Exam 5/5 strength throughout, Sensory exam intact to light touch and pain Psych/Mental Status: Normal Affect, Appropriate Weight / BMI Weight Weight: 189 lb 6.033 oz Body Mass Index (BMI) 27.1 ABG / Lab / Microbiology Data 07/02/25 09:05 07/02/25 09:05 Microbiology: Microbiology 06/27/25 18:24 Blood Culture (Wb) - Right Hand Blood Culture - Final No growth in 5 days. 06/27/25 18:24 Blood Culture (Wb) - Left Wrist Blood Culture - Final No growth in 5 days. 06/27/25 17:40 Urine, Clean Catch Legionella Antigen - Final 06/27/25 17:40 Urine, Clean Catch Streptococcus pneumoniae Antigen (M - Final D/C Instructions DC O2, CPAP, BIPAP Needs Home O2 Discharge instructions: No Meaningful Use Info Meaningful Use Meaningful Use Diagnoses (Choose all that apply): None applicable Discharge Plan Admission Admit Date/Time: 06/27/25 16:57 Attending Provider: Zion Ungre Primary Care Provider: Tanya Pettit Consulting Providers: Wagner Portillo; Chuckie Alicia; Rowdy Kraft; Gt De Los Santos; Robert Thao; Yoav Carrington; Mo Boone; Dmitriy Blankenship; Terry Russell; Yohana Rivera; Deion Ta; Pierre Lozano; New Luque; Sylvie Peterson; Gabe Catherine; Pepe,Divine; Alycia,Willem; Cruz Serna; Leon Valente; Ana,Edgar; Omar House; Luna Resendez; Popeye Mancini; Monroe Persaud; Juventino Masterson; Devon Bullard; J Luis Hill Instructions Additional Instructions / Restrictions: Plan for lithotripsy this 07/06/2025. Was just started on digoxin, have close monitoring of levels and electrolytes as an outpatient Discharge Orders/Prescriptions Prescriptions: New digoxin 250 mcg (0.25 mg) Tablet 250 mcg PO DAILY 30 Days Qty: 0 0RF cefdinir 300 mg Capsule 300 mg PO Q12 6 Days Qty: 0 0RF metoprolol tartrate 25 mg Tablet 75 mg G-tube BID 30 Days Qty: 0 0RF Continued pantoprazole 40 mg tablet,delayed release (DR/EC) 40 mg PO DAILY Prolia 60 mg/mL syringe 60 mg subcut [id number] Adult 50 Plus Probiotic 4 billion cell capsule 4,000 mmu cells PO DAILY Rx Instructions: administer with a meal montelukast [Singulair] 10 mg tablet 10 mg feeding tube QHS azithromycin 250 mg tablet 250 mg feeding tube QHS rifabutin 150 mg capsule 300 mg feeding tube DAILY prednisone 10 mg Tablet 20 mg feeding tube DAILYCM cholecalciferol (vitamin D3) [Vitamin D3] 25 mcg (1,000 unit) tablet 25 mcg feeding tube DAILY Asmanex Twisthaler 220 mcg/ actuation (60) aerosol powdr breath activated 1 inh inhalation BID sertraline 50 mg tablet 50 mg feeding tube DAILY nystatin 100,000 unit/gram powder 1 applic topical BID ipratropium-albuterol 0.5 mg-3 mg(2.5 mg base)/3 mL solution for nebulization 3 ml inhalation Q4H PRN Patient Comments: [NO ORIGINAL SIG] ferrous sulfate 300 mg (60 mg iron)/5 mL liquid 325 mg feeding tube DAILY folic acid 1 mg tablet 1 mg feeding tube DAILY sulfamethoxazole-trimethoprim [Bactrim DS] 800-160 mg tablet 1 tab feeding tube MOWEFR Rx Instructions: take every MWF ondansetron 4 mg Tablet,Disintegrating 4 mg PO Q6H PRN (Reason: Nausea/Vomiting) ascorbic acid (vitamin C) 500 mg capsule 500 mg PO DAILY Rx Instructions: PEG tube ethambutol 400 mg tablet 1,200 mg feeding tube Q24H Nutren 2.0 0.08 gram-2 kcal/mL liquid 60 ml feeding tube .24 Rx Instructions: 60ml/hr x 24 hours acetaminophen 325 mg Tablet 650 mg feeding tube Q6H PRN PRN (Reason: Pain 1-10 Or Fever>100.7) Eliquis 5 mg Tablet 5 mg feeding tube BID Discontinued metoprolol tartrate 50 mg Tablet 50 mg G-tube BID Qty: 0 0RF Referrals / Follow Up: Fast,Tanya, DO [Primary Care Provider] - Within 1 Week Disposition Disposition (needs filled in before D/C Order can be placed): NonSkilled NH/Intermed Care Charges/Coding Visit Charges Inpatient E&M: 48294 Disch Hosp >30min
== END 2025-07-02 19:30 | disposition intermediate care facility (04) | DRG 853 ==
LOC: ICU 06-29 14:01 → PCU 06-30 14:45
PROVIDERS: Family Medicine; Urology; PCP Internal Medicine; Visit Provider Family Medicine
PROC: 0T778DZ Dilation of Left Ureter with Intraluminal Device, Via Natural or Artificial Opening Endoscopic (ICD-10-PCS; CPT 52332; principal; 2025-06-28 08:55)
DX: A41.9 Sepsis, unspecified organism (principal); G93.41 Metabolic encephalopathy; R65.21 Severe sepsis with septic shock; M86.68 Other chronic osteomyelitis, other site; J84.9 Interstitial pulmonary disease, unspecified; N13.6 Pyonephrosis; F32.A Depression, unspecified; I10 Essential (primary) hypertension; J45.909 Unspecified asthma, uncomplicated; D50.9 Iron deficiency anemia, unspecified; I48.0 Paroxysmal atrial fibrillation; Z93.1 Gastrostomy status; K21.9 Gastro-esophageal reflux disease without esophagitis; I45.10 Unspecified right bundle-branch block; M24.572 Contracture, left ankle; M24.571 Contracture, right ankle; E87.5 Hyperkalemia; I95.9 Hypotension, unspecified; M54.50 Low back pain, unspecified; Z99.81 Dependence on supplemental oxygen; B96.89 Other specified bacterial agents as the cause of diseases classified elsewhere; N40.0 Benign prostatic hyperplasia without lower urinary tract symptoms; M81.0 Age-related osteoporosis without current pathological fracture; R53.81 Other malaise; R00.0 Tachycardia, unspecified; Z95.9 Presence of cardiac and vascular implant and graft, unspecified; Z79.2 Long term (current) use of antibiotics; Z79.01 Long term (current) use of anticoagulants; Z79.52 Long term (current) use of systemic steroids; Z79.51 Long term (current) use of inhaled steroids; Z87.442 Personal history of urinary calculi; Z79.899 Other long term (current) drug therapy
CPT/HCPCS: 36415; 76000; 80048; 80053; 80202; 83605; 85025; 87040; 87449; 93005; 93308; 94640; 94762; 97802; 97803; J2185; Q9957; A4216; C1769; C2617; C8924; J0612; J2405

== ENCOUNTER 2025-07-05 03:37 | Inpatient (IN) | payer MEDICARE, BC, SELFPAY ==
[2025-07-05 04:00] VITALS: BP 122/76; PULSE 85; RESP 18; TEMP 36.6; O2SAT 96; BMI 27.1
--- NOTE | 2025-07-05 05:10 | HP.PCM.HOS_ITS ---
[facility] - General General Date of Admission: 07/05/25 Date of Service: 07/05/25 Chief Complaint: AMS. 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 Hoskins from orthopedic surgery with patient declining potentially curative AKA, history of L eft upper extremity weakness and bilateral foot drop with inability to dorsiflex previously worked up at [facility], osteoporosis; on denosumab, interstitial lung disease with asthma; on mycophenolate mofetil 3g BID, prednisone 20 mg daily, montelukast and budesonide twice daily, history of PEG tube placement for protein-calorie malnutrition in setting of chronic infection, history of vasovagal syncope and fatty liver disease, history of large ~8mm stone at the Left UPJ followed Dr. Bullard of urology; s/p Left ureteral stent placement on June 13, 2025, history of recurrent UTI's with sepsis due to renal calculi; followed by Dr. Alicia of infectious disease and recent admission here from June 27, 2025 to July 03, 2025 for treatment of sepsis with metabolic encephalopathy due to to recurrent UTI complicated by pneumonia and paroxysmal atrial fibrillation; with RVR with wide-complex tachycardia due to underlying RBBB who was transferred here from [facility] after patient was diagnosed with dehydration and electrolyte imbalance with patient already having follow-up appointment here for cystoscopy with stent placement by Dr. Bullard on July 06, 2025. Mr. Verdugo is mildly confused and lethargic at this time with toxic, chronically ill appearance so his daughter augmented history at the bedside. He is now developed such severe muscle weakness in his lower extremities he is now bedbound. Apparently his ECF informed the patient's daughter that he had a sodium of 150 and she then insisted he be sent to the hospital for further evaluation and treatment. The patient's daughter reports that he has been getting 1 UTI after another and she is interested in having definitive treatment of his renal calculi with prescheduled plan for cystoscopy by Dr. Harding on July 06, 2025. While he was at [facility] he was noted to have Leukocytosis of 16.7 K with a hemoglobin of 9.1 g/dL and platelet count of 610 K in addition to mild hypernatremia of 150 mmol/L with UA positive for evidence of Acute Cystitis; with hematuria complicated by clinical evidence of Metabolic Encephalopathy. He was treated with IV fluids and antibiotics with IV gentamicin x 1 prior to transfer. He was then admitted to the PCU for ongoing care for stated is expected to extend beyond 2 midnights. [facility] Medical History (Updated 07/05/25 @ 07:[address] Mo Joel, DO) Acute cystitis with hematuria Wide-complex tachycardia Low iron Anemia Depression Dysphagia Gastrostomy in place History of steroid therapy Thyroid nodule Uses wheelchair Gout Prostate disease Antisynthetase syndrome Thyroid cyst Allergic rhinitis Major depressive disorder BPH (benign prostatic hyperplasia) Low back pain Disorder of zinc metabolism GERD (gastroesophageal reflux disease) Osteoporosis Adult failure to thrive Right bundle branch block Hypertension Atrial fibrillation Dysphagia, oropharyngeal Abscess of right lower extremity Personal history of immunosupression therapy Orthostatic hypotension PAF (paroxysmal atrial fibrillation) Steroid dependence Neuropathic pain Antisynthetase syndrome History of shingles Ambulatory dysfunction Shingles Abscess of left thigh BOOP (bronchiolitis obliterans with organizing pneumonia) Wears glasses High cholesterol Easy bruising Back pain Injury of head and neck Blackout Gastric reflux Non-smoker On home oxygen therapy Hoarseness Chronic cough History of echocardiogram Hypertension History of stress test Cardiology follow-up encounter History of atrial fibrillation Atrial fibrillation COVID-19 Osteoporosis Kidney stones Atrial fibrillation RBBB (right bundle branch block) Antisynthetase syndrome Essential hypertension Mixed hyperlipidemia Asthma Interstitial lung disease GERD (gastroesophageal reflux disease) Fatty liver BPH (benign prostatic hyperplasia) Lung nodule Vasovagal syncope Abnormal cardiac CT angiography Home Medications ?Medication ?Instructions ?Recorded ?Last Taken ?Type denosumab 60 mg/mL subcutaneous 60 mg subcut [id number] low calcuim 07/14/21 Unknown History syringe (Prolia) pantoprazole 40 mg tablet,delayed 40 mg PO DAILY reflu x 07/14/21 06/26/25 History release lactobacillus combination no.9 4 4,000 mmu cells PO DA ROBERT supplement 01/01/22 06/26/25 History billion cell capsule (Adult 50 Plus Probiotic) montelukast 10 mg tablet 10 mg feeding tube QHS aller gies 05/12/23 06/26/25 History (Singulair) ascorbic acid (vitamin C) 500 mg 500 mg PO DAILY suppl e 10/10/24 06/12/25 History capsule prednisone 10 mg tablet 20 mg feeding tube DAILYCM s teriod 05/21/25 06/26/25 History cholecalciferol (vitamin D3) 25 25 mcg feeding tube DA ROBERT 05/23/25 06/26/25 History mcg (1,000 unit) tablet (Vitamin supplement D3) ferrous sulfate 300 mg (60 mg 325 mg feeding tube CALLIE Y 05/23/25 06/26/25 History iron)/5 mL oral liquid supplemetn folic acid 1 mg tablet 1 mg feeding tube DAILY supp lement 05/23/25 06/26/25 History ipratropium 0.5 mg-albuterol 3 mg 3 ml inhalation Q4H PRN pneumonuia 05/23/25 06/26/25 History (2.5 mg base)/3 mL nebulization soln mometasone 220 mcg/actuation(60 1 inh inhalation BID s ob 05/23/25 06/26/25 History doses) breath activated powder inhaler (Asmanex Twisthaler) nystatin 100,000 unit/gram topical 1 applic topical BI D yeast 05/23/25 06/26/25 History powder ondansetron 4 mg disintegrating 4 mg PO Q6H PRN Nausea /Vomiting 05/23/25 06/23/25 History tablet sertraline 50 mg tablet 50 mg feeding tube DAILY dep ression 05/23/25 06/26/25 History sulfamethoxazole 800 1 tab feeding tube MOWEFR AT B 05/23/25 06/25/25 History mg-trimethoprim 160 mg tablet (Bactrim DS) ethambutol 400 mg tablet 1,200 mg feeding tube Q24H n /a 06/11/25 06/26/25 History azithromycin 250 mg tablet 250 mg feeding tube QHS ant ibiotic 06/12/25 06/26/25 History rifabutin 150 mg capsule 300 mg feeding tube DAILY 06/26/25 History antibacterial acetaminophen 325 mg tablet 650 mg feeding tube Q6H KY N PRN 06/27/25 Unknown History Pain 1-10 Or Fever>100.7 apixaban 5 mg tablet (Eliquis) 5 mg feeding tube BID A fib 06/27/25 06/26/25 History nutritional supplements 0.08 60 ml feeding tube .24 Nu trition 06/27/25 Unknown History gram-2 kcal/mL liquid for tube feed (Nutren 2.0) cefdinir 300 mg capsule 300 mg PO Q12 6 days #0 caps 07/02/25 Unknown Rx digoxin 250 mcg (0.25 mg) tablet 250 mcg PO DAILY 30 d ays #0 tabs 07/02/25 Unknown Rx metoprolol tartrate 25 mg tablet 75 mg (3 x 25 mg) G-t ube BID 30 07/02/25 Unknown Rx days #0 tabs Allergy/AdvReac Type Severity Reaction Status Date / Time monosodium glutamate Allergy Abd Verified 06/13/25 12:58 cramps/diarrhea Penicillins (PCN) Allergy Rash Verified 06/13/25 12:58 allopurinol AdvReac Unknown cough Verified 06/13/25 12:58 morphine AdvReac Other Verified 06/13/25 12:58 tamsulosin (From Flomax) AdvReac Other Verified 06/13/25 12:58 Family History Grandfather CVA (cerebral vascular accident) Grandmother Congestive heart failure Grandmother Cardiac pacemaker in situ Mother Heart disease Hypertension Father Heart disease Cardiac arrhythmia Surgical History History of renal stent History of incision and drainage Hx of cystoscopy History of umbilical hernia repair History of inguinal hernia repair Social History household members: spouse Smoking Status: Never smoker alcohol intake: current details: Rare substance use type: does not use caffeine: Yes Type: coffee Number of servings: 1 ROS ROS Narrative Full review of systems was not possible due to patient confusion and lethargy. Vital Signs Vital Signs Vital Signs: Weight Weight: 189 lb 9.561 oz Body Mass Index (BMI) 27.1 Physical Exam Const alert and no apparent distress Constitutional Narrative: Patient has chronically ill toxic appearance. Orientation / Consciousness: confused and lethargic HEENT normocephalic, head/scalp atraumatic and hearing grossly normal bilaterally HEENT Narrative: Mucous membranes dry. Eyes PERRL, EOMs intact bilaterally and conjunctivae normal Neck no lymphadenopathy and supple Resp normal respiratory effort, no retractions, no use of accessory muscles and clear to auscultation bilaterally Cardio Cardio Narrative: Irregularly irregular at ~85 bpm GI normal to inspection, nondistended, normoactive bowel sounds, soft to palpation, non-tender and non-distended Extremity Extremity Narrative: Patient has chronic infection in Left leg with severe muscle atrophy. Skin Skin Narrative: Patient has chronic infection in Left leg with severe muscle atrophy. Neuro CN's II-XII intact bilaterally and moves all extremities Sensorium / Orientation: awake, alert, oriented to person and oriented to place Speech: speech normal Psych Psych Narrative: Patient is confused and lethargic. Results Medical Records Data Attestation: I reviewed the patient's medical records Lab / Micro Data Attestation: I reviewed the patient's lab results. Assessment & Plan Assessment/Plan (1) Acute cystitis with hematuria: (2) Leukocytosis: QUALIFIERS: Leukocytosis type: unspecified Qualified Code(s): D72.829 - Elevated white blood cell count, unspecified (3) Ureteral calculus, left: (4) Hypernatremia: (5) Metabolic encephalopathy: (6) Adult failure to thrive: (7) Paroxysmal atrial fibrillation: (8) Chronic anticoagulation: PLAN: Plan 1. Acute Cystitis; with mild hematuria and Leukocytosis of 16.7K present on admission in the setting of a known history of large ~8mm stone at the Left UPJ followed Dr. Bullard of urology; s/p Left ureteral stent placement on June 13, 2025 with a clear pattern of serial reinfection - Admit to PCU. Start empiric IV meropenem and await culture and sensitivity data. Check CT scan of the abdomen and pelvis to evaluate renal calculus. Give ondansetron prn for nausea and vomiting. Give acetaminophen prn for pain or fever. Finally, we will consult Dr. Bullard of urology and Dr. Alicia of infectious disease to see this patient on-rounds in the AM for further recommendations with the help of both parties appreciated in advance. 2. Mild Hypernatremia of 150 mmol/L present on admission complicating #1 - Give NS IVF and recheck CMP daily to follow trend. 3. Metabolic Encephalopathy due to #1 & #2 in the setting of chronically ill patient who is bedbound with adult [id number] and history of PEG tube placement for protein-calorie malnutrition in setting of chronic infection - Check head CT without contrast. 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 Check TSH, B12, Folate, JEAN-CLAUDE and UDS to evaluate for potentially reversible causes of confusion. Otherwise, continue supportive care and monitor for improvement. 4. Recent admission here from June 27, 2025 to July 03, 2025 for treatment of sepsis with metabolic encephalopathy due to to recurrent UTI complicated by pneumonia and paroxysmal atrial fibrillation; with RVR with wide-complex tachycardia due to underlying RBBB who was transferred here from [facility] after patient was diagnosed with dehydration and electrolyte imbalance with patient already having follow-up appointment here for cystoscopy with stent placement by Dr. Bullard on July 06, 2025 adding to the medical complexity of #1 - #3 - Noted with evolving pattern of serial readmission for similar diagnoses. 5. 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 Hoskins from orthopedic surgery with patient declining potentially curative AKA, history of Left upper extremity weakness and bilateral foot drop with inability to dorsiflex previously worked up at [facility] adding to the burden of disease outlined from #1 - #4 - Noted. 6. Paroxysmal atrial fibrillation; on digoxin and apixaban - Maintain current treatment with digoxin after we check level but hold apixaban with possible impending cystoscopy. 7. Interstitial lung disease with asthma; on mycophenolate mofetil 3g BID, prednisone 20 mg daily, montelukast and budesonide twice daily - Stable on present therapy. 8. Essential hypertension; on metoprolol - Continue metoprolol as previous. 9. Osteoporosis; on denosumab - Restart denosumab as outpatient. 10. History of vasovagal syncope - Noted. 11. Overweight; with BMI of 27.2 this admission in the setting of previously known fatty liver disease - Weight loss is unlikely. 12. DVT prophylaxis - SCD's only with impending cystoscopy. Total time: Approximately (but not less than) 75 minutes. Charges/Coding Visit Charges Inpatient E&M: 16237 Init Hosp L3
--- NOTE | 2025-07-05 05:55 | EKG12_ITS ---
Test Reason : ARRHYTHMIA Blood Pressure : */* mmHG Vent. Rate : 111 BPM Atrial Rate : * BPM P-R Int : * ms QRS Dur : 110 ms QT Int : 350 ms P-R-T Axes : * -35 -2 degrees QTcB Int : 476 ms sinus tach with PACs Left axis deviation Incomplete right bundle branch block Abnormal ECG When compared with ECG of 28-Jun-2025 09:29, Atrial fibrillation has replaced Sinus rhythm ST now depressed in Anterior leads Confirmed by Shiva Dia ([id number]), editor sound ASIYA JACKSON ([id number]) on 07/06/2025 10:06:20 AM Referred By: GODWIN Confirmed By: Shiva Dia
--- NOTE | 2025-07-05 06:54 | CT_ITS ---
PROCEDURE: ABDOMEN/PELVIS WITHOUT CONT 07/05/2025 REASON FOR EXAM: UTI WITH HISTORY OF LARGE LEFT UPJ STONE. TECHNIQUE: ABDOMEN/PELVIS WITHOUT CONT Noncontrast technique limits evaluation of the abdominal and pelvic viscera. Coronal and Sagittal reconstruction series were provided. One or more dose reduction techniques were used (e.g., Automated exposure control, adjustment of the mA and/or kV according to patient size, use of iterative reconstruction technique). RADIATION DOSE SUMMARY: CTDlvol: 10.6 mGy DLP: 1252.52 mGycm COMPARISON: Prior study dated May 21, 2025. FINDINGS: Lung bases: Small bilateral pleural effusions with bibasilar atelectasis and/or infiltration worse at the right lung base. Coronary artery calcification. Liver: Normal size. No obvious mass. Gallbladder: Several calcified gallstones. Spleen: Normal size. Pancreas: Normal size. No surrounding inflammation. Adrenals: Unremarkable Kidneys: Once again, there are multiple bilateral intrarenal calculi. A left- sided double-J stent catheter is seen with the tip in the superior pole of the left kidney. Stable left renal cyst. Stable 4.5 cm cyst in the medial inferior portion of the right kidney. Bladder: The distal tip of the left double-J stent catheter is seen in the bladder. Bowel: Colonic diverticulosis without diverticulitis. Appendix: The appendix is not identified. There is no inflammatory process identified in the right lower quadrant to suggest appendicitis. Lymph nodes: Unremarkable. Vasculature: Mild diffuse atherosclerotic calcifications are noted. Peritoneum / Retroperitoneum: Unremarkable Bones: Degenerative changes of the spine. CT/Abdomen/Pelvis without Cont IMPRESSION: Stable nonobstructive bilateral intrarenal calculi. A left-sided double-J stent catheter is seen. Gallstones. Bilateral renal cysts. Small bilateral pleural effusions with bibasilar atelectasis and/or infiltratio n. Reading Location: [place] [id number]
[2025-07-05] MEDS: 0.9% Normal Saline (1000mL) 1,000 ML 100 ML IV (07:07)
--- NOTE | 2025-07-05 07:20 | CON.PCM_ITS ---
HPI Consult Data Date of Consult: 07/05/25 HPI Narrative Reason for Consultation: Left kidney stone HPI Narrative: YARON BTULER, is a 74 M who presents to the hospital preoperatively he has a complicated medical history of multiple medical problems he has recurrent kidney stones in the left kidney due to infectious stones he was already lasered out once came back fairly quickly after that with another large stone. The plan that tomorrow is to take him to surgery and place an access sheath and hopefully try to get all the stones out probably will need another stent possible so we will be n.p.o. at midnight for surgery and will have to hold all blood thinners. [facility] Medical History (Updated 07/05/25 @ 07:[address] Mo Joel, DO) Acute cystitis with hematuria Wide-complex tachycardia Low iron Anemia Depression Dysphagia Gastrostomy in place History of steroid therapy Thyroid nodule Uses wheelchair Gout Prostate disease Antisynthetase syndrome Thyroid cyst Allergic rhinitis Major depressive disorder BPH (benign prostatic hyperplasia) Low back pain Disorder of zinc metabolism GERD (gastroesophageal reflux disease) Osteoporosis Adult failure to thrive Right bundle branch block Hypertension Atrial fibrillation Dysphagia, oropharyngeal Abscess of right lower extremity Personal history of immunosupression therapy Orthostatic hypotension PAF (paroxysmal atrial fibrillation) Steroid dependence Neuropathic pain Antisynthetase syndrome History of shingles Ambulatory dysfunction Shingles Abscess of left thigh BOOP (bronchiolitis obliterans with organizing pneumonia) Wears glasses High cholesterol Easy bruising Back pain Injury of head and neck Blackout Gastric reflux Non-smoker On home oxygen therapy Hoarseness Chronic cough History of echocardiogram Hypertension History of stress test Cardiology follow-up encounter History of atrial fibrillation Atrial fibrillation COVID-19 Osteoporosis Kidney stones Atrial fibrillation RBBB (right bundle branch block) Antisynthetase syndrome Essential hypertension Mixed hyperlipidemia Asthma Interstitial lung disease GERD (gastroesophageal reflux disease) Fatty liver BPH (benign prostatic hyperplasia) Lung nodule Vasovagal syncope Abnormal cardiac CT angiography Home Medications ?Medication ?Instructions ?Recorded ?Last Taken ?Type denosumab 60 mg/mL subcutaneous 60 mg subcut [id number] low calcuim 07/14/21 Unknown History syringe (Prolia) pantoprazole 40 mg tablet,delayed 40 mg PO DAILY reflu x 07/14/21 06/26/25 History release lactobacillus combination no.9 4 4,000 mmu cells PO DA ROBERT supplement 01/01/22 06/26/25 History billion cell capsule (Adult 50 Plus Probiotic) montelukast 10 mg tablet 10 mg feeding tube QHS aller gies 05/12/23 06/26/25 History (Singulair) ascorbic acid (vitamin C) 500 mg 500 mg PO DAILY suppl e 10/10/24 06/12/25 History capsule prednisone 10 mg tablet 20 mg feeding tube DAILYCM s teriod 05/21/25 06/26/25 History cholecalciferol (vitamin D3) 25 25 mcg feeding tube DA ROBERT 05/23/25 06/26/25 History mcg (1,000 unit) tablet (Vitamin supplement D3) ferrous sulfate 300 mg (60 mg 325 mg feeding tube CALLIE Y 05/23/25 06/26/25 History iron)/5 mL oral liquid supplemetn folic acid 1 mg tablet 1 mg feeding tube DAILY supp lement 05/23/25 06/26/25 History ipratropium 0.5 mg-albuterol 3 mg 3 ml inhalation Q4H PRN pneumonuia 05/23/25 06/26/25 History (2.5 mg base)/3 mL nebulization soln mometasone 220 mcg/actuation(60 1 inh inhalation BID s ob 05/23/25 06/26/25 History doses) breath activated powder inhaler (Asmanex Twisthaler) nystatin 100,000 unit/gram topical 1 applic topical BI D yeast 05/23/25 06/26/25 History powder ondansetron 4 mg disintegrating 4 mg PO Q6H PRN Nausea /Vomiting 05/23/25 06/23/25 History tablet sertraline 50 mg tablet 50 mg feeding tube DAILY dep ression 05/23/25 06/26/25 History sulfamethoxazole 800 1 tab feeding tube MOWEFR AT B 05/23/25 06/25/25 History mg-trimethoprim 160 mg tablet (Bactrim DS) ethambutol 400 mg tablet 1,200 mg feeding tube Q24H n /a 06/11/25 06/26/25 History azithromycin 250 mg tablet 250 mg feeding tube QHS ant ibiotic 06/12/25 06/26/25 History rifabutin 150 mg capsule 300 mg feeding tube DAILY 06/26/25 History antibacterial acetaminophen 325 mg tablet 650 mg feeding tube Q6H ME N PRN 06/27/25 Unknown History Pain 1-10 Or Fever>100.7 apixaban 5 mg tablet (Eliquis) 5 mg feeding tube BID A fib 06/27/25 06/26/25 History nutritional supplements 0.08 60 ml feeding tube .24 Nu trition 06/27/25 Unknown History gram-2 kcal/mL liquid for tube feed (Nutren 2.0) cefdinir 300 mg capsule 300 mg PO Q12 6 days #0 caps 07/02/25 Unknown Rx digoxin 250 mcg (0.25 mg) tablet 250 mcg PO DAILY 30 d ays #0 tabs 07/02/25 Unknown Rx metoprolol tartrate 25 mg tablet 75 mg (3 x 25 mg) G-t ube BID 30 07/02/25 Unknown Rx days #0 tabs Allergy/AdvReac Type Severity Reaction Status Date / Time monosodium glutamate Allergy Abd Verified 06/13/25 12:58 cramps/diarrhea Penicillins (PCN) Allergy Rash Verified 06/13/25 12:58 allopurinol AdvReac Unknown cough Verified 06/13/25 12:58 morphine AdvReac Other Verified 06/13/25 12:58 tamsulosin (From Flomax) AdvReac Other Verified 06/13/25 12:58 Family History Grandfather CVA (cerebral vascular accident) Grandmother Congestive heart failure Grandmother Cardiac pacemaker in situ Mother Heart disease Hypertension Father Heart disease Cardiac arrhythmia Surgical History History of renal stent History of incision and drainage Hx of cystoscopy History of umbilical hernia repair History of inguinal hernia repair Social History household members: spouse Smoking Status: Never smoker alcohol intake: current details: Rare substance use type: does not use caffeine: Yes Type: coffee Number of servings: 1
[2025-07-05 08:35] VITALS: PULSE 115
--- NOTE | 2025-07-05 08:59 | PN.HOSP_ITS ---
Reason for Visit Chief Complaint: AMS. Objective Data Objective Data Vital Signs: Vital Signs Temp Pulse Resp BP Pulse Ox O2 Del Method O2 Flow Rate 97.9 F 115 H 18 122/76 H 96 Nasal Cannula 3 07/05/25 04:00 07/05/25 08:35 07/05/25 04:00 07/05/25 04:00 07/05/25 04:00 07/05/25 05:00 07/05/25 04:00 Oxygen Flow Rate (L/min) 3 Oxygen Delivery Method Nasal Cannula Weight: 189 lb 9.561 oz Body Mass Index (BMI) 27.1 Lab / Micro Data 07/05/25 09:29 07/05/25 09:29 Radiography Diagnostic Testing: Radiology Impression Abdomen/Pelvis CT 07/05/25 06:54 IMPRESSION: Stable nonobstructive bilateral intrarenal calculi. A left-sided double-J stent catheter is seen. Gallstones. Bilateral renal cysts. Small bilateral pleural effusions with bibasilar atelectasis and/or infiltration. Reading Location: [facility] Physical Exam Narrative Seen and examined. Patient has been bedbound for lower extremity weakness. Mild cough. On oxygen shortness of breath. Admitted with UTI. No fever Physical exam: General: Alert, Oriented x3, Cooperative, bedbound for about 1 year HEENT: Atraumatic, PERRLA, EOMI, Normocephalic. Oral: No Gingival or Mucosal Lesions/ Ulcerations Neck: Supple, No JVD, Negative Carotid Bruits Chest wall/Lungs: Air entry diminished in bilateral lung bases right more than left. Coarse crepitations Cardiovascular: Sinus arrhythmia, PVCs normal S1,S2, No M/G/R Abdomen: Bowel Sounds Present, Soft, PEG tube present. Tenderness present in left lower and left upper quadrant : No dysuria. No suprapubic tenderness. Extremities: Bilateral pitting edema, nonambulatory, Capillary Refill Less than 3 Seconds Skin: Surgical scar over right thigh for infection Musculoskeletal: No Tenderness to Palpation of Joints or Extremities. Bilateral paraplegia, ROM restricted with mild contracture Neurological: Cranial nerves II-XII grossly intact, DTR 2+/4. Chronic paraplegia. Foot drop bilateral. Psych/Mental Status: Flat affect Assessment & Plan Assessment/Plan (1) Acute cystitis with hematuria: (2) Leukocytosis: QUALIFIERS: Leukocytosis type: unspecified Qualified Code(s): D 72.829 - Elevated white blood cell count, unspecified (3) Ureteral calculus, left: (4) Hypernatremia: (5) Metabolic encephalopathy: (6) Adult failure to thrive: (7) Paroxysmal atrial fibrillation: (8) Chronic anticoagulation: PLAN: Plan 74-year-old gentleman was admitted with lethargic, low blood pressure and slow to respond. He was discharged on last Wednesday when he went to [facility], he was not acting right, swelling increased thirst sent to pulmonary and then direct admit here. 1. Complicated UTI with mild hematuria, from 8 mm stone at left UPJ: Patient had left ureteric stent on May 2025 and had then multiple recurrent UTI. Admitted in PCU. Started on IV meropenem. ID was consulted and agree with antibiotic choice. 2. Mild Hypernatremia of 150 mmol/L present on admission: Repeat labs shows sodium 148 slight improvement. Free water ordered. 3. Acute infectious and metabolic Encephalopathyin the setting of chronically ill patient who is bedbound with adult [id number] and history of PEG tube placement for protein-calorie malnutrition in setting of chronic infection : Currently patient is alert awake oriented x 3. Talking coherent. Acute encephalopathy resolved. TSH normal. 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 Hoskins from orthopedic surgery with patient declining potentially curative AKA, history of Left upper extremity weakness and bilateral foot drop with inability to dorsiflex 6. Paroxysmal atrial fibrillation; on digoxin and apixaban - Maintain current treatment with digoxin after we check level but hold apixaban with possible impending cystoscopy. 7. Interstitial lung disease with asthma; on mycophenolate mofetil 3g BID, prednisone 20 mg daily, montelukast and budesonide twice daily - Stable on present therapy. 8. Essential hypertension; on metoprolol - Continue metoprolol as previous. Osteoporosis; on denosumab - Restart denosumab as outpatient. Overweight; with BMI of 27.2 this admission in the setting of previously known fatty liver disease - Weight loss is unlikely. DVT prophylaxis - SCD's only with impending cystoscopy. Laboratory Results 07/05/25 09:29: WBC 14.6 H, RBC 3.54 L, Hgb 8.5 L, Hct 31.7 L, MCV 89.5, MCH 24.0 L, MCHC 26.8 L, RDW Std Deviation 59.0 H, RDW Coeff of Opal 18.1 H, Plt Count 446, MPV 9.8, Immature Gran % (Auto) 0.600, Neut % (Auto) 88.2 H, Lymph % (Auto) 2.6 L, [place] % (Auto) 6.3, Eos % (Auto) 2.2, Baso % (Auto) 0.1, Absolute Neuts (auto) 12.9 H, Absolute Lymphs (auto) 0.38 L, Nucleated RBC % 0, Sodium 148 H, Potassium 5.0, Chloride 110 H, Carbon Dioxide 30.0, Anion Gap 8, BUN 21 H , Creatinine 0.59 L, Estim Creat Clear Calc 86.18, Est GFR (MDRD) Non-Af 103, B UN/Creatinine Ratio 35.9 H, Glucose 93, Calcium 8.3, Phosphorus 2.3 L, Magnesium 2.3 H, Total Bilirubin 0.28, AST 38, ALT 10, Alkaline Phosphatase 49, Total Protein 5.9, Albumin 2.8 L, Globulin 3.1, Albumin/Globulin Ratio 0.9, TSH 0.996, Digoxin 1.56 07/05/25 12:25: Urine Color Yellow, Urine Clarity Sl. Cloudy, Urine pH 7.0, Ur Specific [place] 1.010, Urine Protein 100 H, Urine Glucose (UA) Normal, Urine Ketones Negative, Urine Occult Blood 250 H, Urine Nitrite Negative, Urine Bilirubin Negative, Urine Urobilinogen Normal, Ur Leukocyte Esterase 500 H, Urine RBC 5-10 SEEN, Urine WBC >100 SEEN, Ur Squamous Epith Cells 0 SEEN, Urine Bacteria 0 SEEN, Urine Mucus 0 SEEN Clinical Impression(s) from Imaging Studies Abdomen/Pelvis CT 07/05/25 06:54 IMPRESSION: Stable nonobstructive bilateral intrarenal calculi. A left-sided double-J stent catheter is seen. Gallstones. Bilateral renal cysts. Small bilateral pleural effusions with bibasilar atelectasis and/or infiltration. Reading Location: [facility]- Charges/Coding Addendum Addendum: Total time of the visit including total time spent in counseling or coordination of care, (more than 50% of the total time, spent in obtaining medical information from nurses and other ancillary care providers ,explaining to the patient about labs, imaging, diagnosis and management of active complex medical conditions), complicated active medical problems with high severity, review of labs and imaging is 35 minutes. Visit Charges Inpatient E&M: 73787 Subs Hosp L3
[2025-07-05 09:39] LABS: Hematocrit 31.7 % (40-54); Hemoglobin 8.5 g/dL (13.0-16.5); Immature Granulocytes Count 0.090 X10^3/uL (0.0-0.0); Mean Corp Hgb Conc 26.8 g/dL (32-36); Mean Corpuscular Volume 89.5 fL (80-94); Mean Platelet Vol. 9.8 fl (6.2-12.0); NRBC Flagged by Analyzer 0 % (0-5); POSITIVE DIFFERENTIAL YES; Platelet Count 446 K/mm3 (150-450); RBC Distribution Width CV 18.1 % (11.6-14.6); RBC Distribution Width SD 59.0 fl (35.1-43.9); Red Blood Count 3.54 M/mm3 (4.6-6.2); White Blood Count 14.6 K/mm3 (4.4-11.0)
[2025-07-05] MEDS: Meropenem 2 GM in 0.9% Normal Saline (100mL Bag) 100 ML IV ×2 (09:51→22:45)
[2025-07-05 09:54] VITALS: BP 128/90; PULSE 118; RESP 22; TEMP 37.2; O2SAT 99
[2025-07-05 10:42] LABS: Magnesium 2.3 mg/dL (1.5-2.2)
[2025-07-05 10:47] LABS: AST(SGOT) 38 U/L (<=37); Alanine Aminotransfer ALT/SGPT 10 U/L (<=46); Albumin, Serum 2.8 g/dL (3.4-4.8); Alkaline Phosphatase 49 U/L (40-129); Anion Gap 8 (5-15); BUN 21 mg/dL (4-19); BUN/Creat Ratio 35.9 RATIO (10-20); Calcium,Total 8.3 mg/dL (7.6-11.0); Carbon Dioxide 30.0 mmol/L (21.0-32.0); Chloride 110 mmol/L (98-108); Estimated Creatinine Clearance 86.18 ml/min (50-250); Globulin 3.1 g/dL (2.2-4.2); Glucose 93 mg/dL (70-99); Potassium 5.0 mmol/L (3.3-5.1)
--- NOTE | 2025-07-05 11:04 | CON.PCM.ID_ITS ---
Assessment & Plan Assessment/Plan (1) Leukocytosis: QUALIFIERS: Leukocytosis type: unspecified Qualified Code(s): D 72.829 - Elevated white blood cell count, unspecified (2) UTI (urinary tract infection): PLAN: Urology following to address stones, will check ucx and follow results from OSH. Cont marry. Will follow, thank you HPI Consult Data Date of Consult: 07/05/25 HPI Narrative Reason for Consultation: uti HPI Narrative: YARON BUTLER, is a 74 M who presented to [facility], transferred here. Was at [facility], reports several days abd pain, confusion, nausea not feeling well. Had recent admit here with L ureteral stent placed 06/28/[address] Bullard. Admitted here on marry, feeling a little better this AM. No abd pain. Has been on three drug therapy for M. kansasii R upper leg infection for at least several months. Full ROS performed and neg except as noted above [facility] Medical History Acute cystitis with hematuria Wide-complex tachycardia Low iron Anemia Depression Dysphagia Gastrostomy in place History of steroid therapy Thyroid nodule Uses wheelchair Gout Prostate disease Antisynthetase syndrome Thyroid cyst Allergic rhinitis Major depressive disorder BPH (benign prostatic hyperplasia) Low back pain Disorder of zinc metabolism GERD (gastroesophageal reflux disease) Osteoporosis Adult failure to thrive Right bundle branch block Hypertension Atrial fibrillation Dysphagia, oropharyngeal Abscess of right lower extremity Personal history of immunosupression therapy Orthostatic hypotension PAF (paroxysmal atrial fibrillation) Steroid dependence Neuropathic pain Antisynthetase syndrome History of shingles Ambulatory dysfunction Shingles Abscess of left thigh BOOP (bronchiolitis obliterans with organizing pneumonia) Wears glasses High cholesterol Easy bruising Back pain Injury of head and neck Blackout Gastric reflux Non-smoker On home oxygen therapy Hoarseness Chronic cough History of echocardiogram Hypertension History of stress test Cardiology follow-up encounter History of atrial fibrillation Atrial fibrillation COVID-19 Osteoporosis Kidney stones Atrial fibrillation RBBB (right bundle branch block) Antisynthetase syndrome Essential hypertension Mixed hyperlipidemia Asthma Interstitial lung disease GERD (gastroesophageal reflux disease) Fatty liver BPH (benign prostatic hyperplasia) Lung nodule Vasovagal syncope Abnormal cardiac CT angiography Home Medications ?Medication ?Instructions ?Recorded ?Last Taken ?Type denosumab 60 mg/mL subcutaneous 60 mg subcut [id number] low calcuim 07/14/21 Unknown History syringe (Prolia) pantoprazole 40 mg tablet,delayed 40 mg PO DAILY reflu x 07/14/21 06/26/25 History release lactobacillus combination no.9 4 4,000 mmu cells PO DA ROBERT supplement 01/01/22 06/26/25 History billion cell capsule (Adult 50 Plus Probiotic) montelukast 10 mg tablet 10 mg feeding tube QHS aller gies 05/12/23 06/26/25 History (Singulair) ascorbic acid (vitamin C) 500 mg 500 mg PO DAILY suppl e 10/10/24 06/12/25 History capsule prednisone 10 mg tablet 20 mg feeding tube DAILYCM s teriod 05/21/25 06/26/25 History cholecalciferol (vitamin D3) 25 25 mcg feeding tube DA ROBERT 05/23/25 06/26/25 History mcg (1,000 unit) tablet (Vitamin supplement D3) ferrous sulfate 300 mg (60 mg 325 mg feeding tube CALLIE Y 05/23/25 06/26/25 History iron)/5 mL oral liquid supplemetn folic acid 1 mg tablet 1 mg feeding tube DAILY supp lement 05/23/25 06/26/25 History ipratropium 0.5 mg-albuterol 3 mg 3 ml inhalation Q4H PRN pneumonuia 05/23/25 06/26/25 History (2.5 mg base)/3 mL nebulization soln mometasone 220 mcg/actuation(60 1 inh inhalation BID s ob 05/23/25 06/26/25 History doses) breath activated powder inhaler (Asmanex Twisthaler) nystatin 100,000 unit/gram topical 1 applic topical BI D yeast 05/23/25 06/26/25 History powder ondansetron 4 mg disintegrating 4 mg PO Q6H PRN Nausea /Vomiting 05/23/25 06/23/25 History tablet sertraline 50 mg tablet 50 mg feeding tube DAILY dep ression 05/23/25 06/26/25 History sulfamethoxazole 800 1 tab feeding tube MOWEFR AT B 05/23/25 06/25/25 History mg-trimethoprim 160 mg tablet (Bactrim DS) ethambutol 400 mg tablet 1,200 mg feeding tube Q24H n /a 06/11/25 06/26/25 History azithromycin 250 mg tablet 250 mg feeding tube QHS ant ibiotic 06/12/25 06/26/25 History rifabutin 150 mg capsule 300 mg feeding tube DAILY 06/26/25 History antibacterial acetaminophen 325 mg tablet 650 mg feeding tube Q6H MN N PRN 06/27/25 Unknown History Pain 1-10 Or Fever>100.7 apixaban 5 mg tablet (Eliquis) 5 mg feeding tube BID A fib 06/27/25 06/26/25 History nutritional supplements 0.08 60 ml feeding tube .24 Nu trition 06/27/25 Unknown History gram-2 kcal/mL liquid for tube feed (Nutren 2.0) cefdinir 300 mg capsule 300 mg PO Q12 6 days #0 caps 07/02/25 Unknown Rx digoxin 250 mcg (0.25 mg) tablet 250 mcg PO DAILY 30 d ays #0 tabs 07/02/25 Unknown Rx metoprolol tartrate 25 mg tablet 75 mg (3 x 25 mg) G-t ube BID 30 07/02/25 Unknown Rx days #0 tabs Allergy/AdvReac Type Severity Reaction Status Date / Time monosodium glutamate Allergy Abd Verified 06/13/25 12:58 cramps/diarrhea Penicillins (PCN) Allergy Rash Verified 06/13/25 12:58 allopurinol AdvReac Unknown cough Verified 06/13/25 12:58 morphine AdvReac Other Verified 06/13/25 12:58 tamsulosin (From Flomax) AdvReac Other Verified 06/13/25 12:58 Family History Grandfather CVA (cerebral vascular accident) Grandmother Congestive heart failure Grandmother Cardiac pacemaker in situ Mother Heart disease Hypertension Father Heart disease Cardiac arrhythmia Surgical History History of renal stent History of incision and drainage Hx of cystoscopy History of umbilical hernia repair History of inguinal hernia repair Social History household members: spouse Smoking Status: Never smoker alcohol intake: current details: Rare substance use type: does not use caffeine: Yes Type: coffee Number of servings: 1 Physical Exam Const alert and no apparent distress General Appearance: lethargic HEENT normocephalic and head/scalp atraumatic Eyes PERRL and EOMs intact bilaterally Neck supple and No nodes Resp normal air movement and clear to auscultation bilaterally Cardio regular rate and regular rhythm GI soft to palpation and non-tender; Negative for non-distended Extremity General Extremity: Negative for edema Skin no rashes or lesions noted Neuro CN's II-XII intact bilaterally Lab / Micro Data Attestation: I reviewed the patient's lab results. 07/05/25 09:29 07/05/25 09:29 Labs: Laboratory Results - last 24 hr 07/05/25 09:29: WBC 14.6 H, RBC 3.54 L, Hgb 8.5 L, Hct 31.7 L, MCV 89.5, MCH 24.0 L, MCHC 26.8 L, RDW Std Deviation 59.0 H, RDW Coeff of Opal 18.1 H, Plt Count 446, MPV 9.8, Immature Gran % (Auto) 0.600, Neut % (Auto) 88.2 H, Lymph % (Auto) 2.6 L, [place] % (Auto) 6.3, Eos % (Auto) 2.2, Baso % (Auto) 0.1, Absolute Neuts (auto) 12.9 H, Absolute Lymphs (auto) 0.38 L, Nucleated RBC % 0, Sodium 148 H, Potassium 5.0, Chloride 110 H, Carbon Dioxide 30.0, Anion Gap 8, BUN 21 H , Creatinine 0.59 L, Estim Creat Clear Calc 86.18, Est GFR (MDRD) Non-Af 103, B UN/Creatinine Ratio 35.9 H, Glucose 93, Calcium 8.3, Phosphorus 2.3 L, Magnesium 2.3 H, Total Bilirubin 0.28, AST 38, ALT 10, Alkaline Phosphatase 49, Total Protein 5.9, Albumin 2.8 L, Globulin 3.1, Albumin/Globulin Ratio 0.9, TSH 0.996, Digoxin 1.56 Imaging Radiology Impression Abdomen/Pelvis CT 07/05/25 06:54 IMPRESSION: Stable nonobstructive bilateral intrarenal calculi. A left-sided double-J stent catheter is seen. Gallstones. Bilateral renal cysts. Small bilateral pleural effusions with bibasilar atelectasis and/or infiltration. Reading Location: [facility]
--- NOTE | 2025-07-05 12:23 | CASEMGMT ---
Discharge Planning Per , pt wishes to return to [facility]. Updates sent. Charis Pittman DC Planning Asst.
[2025-07-05 12:34] LABS: Mucous, Urine 0 SEEN /hpf (<or=2+); Squamous Epithelial Cells - UA 0 SEEN /hpf (0-5)
[2025-07-05 13:16] LABS: Color, Urine Yellow (Yellow); Glucose, Dipstick Normal (Normal); Ketone-Dipstick Negative (Negative); Leukocyte Esterase-Dipstick 500 /ul (Negative); Nitrite-Dipstick Negative (Negative); Occult Blood-Urine 250 /ul (Negative); Protein-Dipstick 100 mg/dl (Negative); Specific Gravity, Urine 1.010 (1.002-1.030); Urine Bilirubin Dipstick Negative (Negative)
--- NOTE | 2025-07-05 13:16 | CASEMGMT ---
Social Work SW met with pt and dgt in law was in the room. Pt confirms plan to return to [facility] when medically ready. DC assistant auto center manager updated and to send clinicals to [facility]. Plan: Return to [facility], when medically ready EDMUND [facility]
[2025-07-05 13:28] LABS: Red Blood Cells-Urine 5-10 SEEN /hpf (0-5)
[2025-07-05 14:26] VITALS: BP 135/85; PULSE 78; RESP 22; TEMP 36.7; O2SAT 97
--- NOTE | 2025-07-05 15:50 | CASEMGMT ---
Code Status Call placed to Siri CASTILLO, at [facility] to verify code status. Siri explained that pt stated yesterday (07/04/25) that he had felt bullied into changing code status to DNRCCA and wanted to be a FULL code again. Full Code status was initiated at the [facility] as of 07/04/25. SW updated. Charis Pittman DC Planning Asst.
--- NOTE | 2025-07-05 16:19 | CASEMGMT ---
Social Work SW received referral that pt/family would like to discuss advance directives. Pt's Ashley arrives on unit and provided SW with copies of pt's health care POA date 04/01/2011 naming Ashley as HCPOA. Copy placed in pt chart. Ashley states that pt dgt in law is in the room and dgt in law states that she will not leave the pt's side and give pt and time to be alone. Ashley frustrated and leaving the hospital. It would be most appropriate for SW to speak with pt alone regarding his wishes for appointment of HCPOA, without the influence of any family members. SW to pt room multiple times today and pt's children in the room. SW will continue to follow for appropriate advanced care planning. EDMUND Penn
[2025-07-05 22:45] VITALS: BP 118/64; PULSE 64; RESP 20; TEMP 36.6; O2SAT 94
[2025-07-05 22:46] VITALS: PULSE 99
[2025-07-06] VITALS (14 sets, daily range): BP systolic 90–147; BP diastolic 49–84; PULSE 74–122; RESP 10–18; TEMP 36.1–36.8; O2SAT 88–100; BMI 29.6
[2025-07-06 04:19] LABS: Hematocrit 31.0 % (40-54); Hemoglobin 8.5 g/dL (13.0-16.5); Immature Granulocytes Count 0.060 X10^3/uL (0.0-0.0); Mean Corp Hgb Conc 27.4 g/dL (32-36); Mean Corpuscular Volume 89.6 fL (80-94); Mean Platelet Vol. 10.3 fl (6.2-12.0); NRBC Flagged by Analyzer 0 % (0-5); POSITIVE COUNT YES; POSITIVE DIFFERENTIAL YES; Platelet Count 411 K/mm3 (150-450); RBC Distribution Width CV 18.4 % (11.6-14.6); RBC Distribution Width SD 59.9 fl (35.1-43.9); Red Blood Count 3.46 M/mm3 (4.6-6.2); White Blood Count 13.0 K/mm3 (4.4-11.0)
[2025-07-06 04:38] LABS: Anion Gap 9 (5-15); BUN 19 mg/dL (4-19); BUN/Creat Ratio 31.7 RATIO (10-20); Calcium,Total 8.2 mg/dL (7.6-11.0); Carbon Dioxide 29.6 mmol/L (21.0-32.0); Chloride 106 mmol/L (98-108); Estimated Creatinine Clearance 95.91 ml/min (50-250); Glucose 80 mg/dL (70-99); Potassium 4.6 mmol/L (3.3-5.1)
[2025-07-06 04:58] LABS: Differential Indicated SCAN CRITERIA MET
[2025-07-06 05:50] LABS: Differential Comment SCANNED
--- NOTE | 2025-07-06 08:50 | PRE.ANES_ITS ---
ASA Classification* ASA Classification ASA Classification: 4 Assessment & Plan Anesthesia* Anesthesia Assessment Anesthesia Assessment: Discussed sedation and/or anesthesia options, risks, benefits, and alternatives with patient/parents/legal guardian/POA. Questions invited. The patient/parents/legal guardian/POA seems to understand and agrees to proceed with anesthesia plan. Reviewed the physical assessment, medical history, allergy history and patient home medications list prior to surgery/procedure/anesthetic and documented any changes. Performed airway and anesthesia risk assessments. Anesthesia Type Anesthesia Type: General History Source History Obtained from:: Patient and Chart Anesthesia Focused Assessment* Temperature: 98.0 F Pulse Rate: 120 Blood Pressure: 117/70 Respiratory Rate: 18 Pulse Ox: 100 Oxygen Delivery Method: Nasal Cannula Oxygen Flow Rate (L/min): 3 Fraction of Inspired Oxygen (FIO2): 3 Airway Assessment Mouth opens: 2 cm Mallampati Score: III Teeth Condition: Intact Neck Range of motion (ROM): Limited ROM Labs Anesthesia Preop lab: CBC WBC 13.0 K/mm3 (4.4-11.0) H 07/06/25 04:08 5 RBC 3.46 M/mm3 (4.6-6.2) L 07/06/25 04:08 07/06/25 Hgb 8.5 g/dL (13.0-16.5) L 07/06/25 04:08 07/06/25 Hct 31.0 % (40-54) L 07/06/25 04:08 07/06/25 Plt Count 411 K/mm3 (150-450) 07/06/25 04:08 07/06/25 CHEMISTRY Potassium 4.6 mmol/L (3.3-5.1) 07/06/25 04:08 07/06/25 Sodium 145 mmol/L (133-145) 07/06/25 04:08 07/06/25 Magnesium 2.3 mg/dL (1.5-2.2) H 07/05/25 09:29 07/05/25 Phosphorus 2.3 mg/dL (2.7-4.5) L 07/05/25 09:29 07/05/25 BUN 19 mg/dL (4-19) 07/06/25 04:08 07/06/25 Creatinine 0.59 mg/dL (0.70-1.20) L 07/06/25 04:08 Glucose 80 mg/dL (70-99) 07/06/25 04:08 07/06/25 TSH 0.996 uIU/mL (0.300-4.200) 07/05/25 09:29 06/22 03/16 COAG PT 20.4 SECONDS (11.7-14.9) H 10/10/24 18:20 09/22 08/15 Pre-Assessment Diagnosis/Proposed Procedure Planned Operative Procedure(s): Cysto, Left ureteroscopy, stent Anesthesia History Anesthesia History - box tender: Anesthesia History - box tender Hx Hospitalization Yes: 05/23/25 KIDNEY STONES, 06/11/25 11:36 LEG INFECTIONS Any Problems With Anesthesia No 06/28/25 08:40 Cholinesterase deficiency No 06/28/25 08:40 You/Your Family Experience No 06/28/25 08:40 fever (hyperthermia) with Relationship Recent Exposure to Contagious No 06/28/25 08:40 Disease Does patient have nerve No 06/28/25 08:40 stimulator Patient instructed to have device shut off --Does patient have Pacemaker or ICD? When Was Last Pacemaker Check QUESTION #4 FULL TEXT: You/Your Family Experience fever (hyperthermia) with Anesthesia Last Oral Intake Last Oral intake: Last Oral Intake NPO since Meds taken in AM with sips of water? Meds patient instructed to take am of surgery PONV PONV - box tender: PONV - box tender Female HX of Motion Sickness HX of N/V After Surgery Non-Smoker Duration of Surgery greater than 60 minutes Number of Risk Factors PONV Score Height & Weight Height & Weight: Anesthesia: Height & Weight Height 5 ft 10 in 07/05/25 08:15 Weight: 93.6 kg 07/06/25 03:22 Body Mass Index (BMI) 29.6 07/06/25 03:22 Respiratory Assessment Respiratory Assessment - box tender: Respiratory Tract Infection Hx - box tender Hx Respiratory Tract Infection No 06/28/25 08:40 STOP Sleep Apnea STOP Sleep Apnea - box tender: STOP Sleep Apnea - box tender Hx Hypertension Yes 07/05/25 12:51 Hx Sleep Apnea No 07/05/25 04:00 CPAP No 06/22/25 19:51 BIPAP Do you snore loudly (louder No 07/05/25 04:00 than talking or can be heard Do you often feel tired/ No 07/05/25 04:00 fatigued/ sleepy during daytime? Has anyone observed you stop No 07/05/25 04:00 breathing during sleep? STOP Results Negative 07/05/25 04:00 QUESTION #5 FULL TEXT : Do you snore loudly (louder than talking or can be heard through closed doors)? Tobacco Use History Tobacco Use History - box tender: Tobacco Use History - box tender Tobacco Use Non-smoker 06/04/25 13:39 Smoking Status Never smoker 07/05/25 04:00 Hx Tobacco Use No 07/05/25 04:00 Years Smoking Packs Smoked per Day Smoking Cessation Date was within the last 15 years Hx Smoking Cessation Date Hx Smoking Cessation Counseling Hematologic Medial History Hematologic Hx - box tender: Hematologic Medical Hx - cheese pancake roller Hx of Blood Transfusion Yes 07/05/25 04:00 Hx of Transfusion in last 3 No 07/05/25 04:00 Months Date of Last Transfusion (if within last 3 months) Ever experience any problems No 07/05/25 04:00 with transfusion(s)? Specify any problems Hx of Preganancy in last 3 N/A 07/05/25 04:00 Months Nurse Filling Out Transfusion SKINNEY 07/05/25 04:00 & Questions: Date: 07/05/25 07/05/25 04:00 Time: 05:09 07/05/25 04:00 Patient unable to answer at this time (ie. confused, unrespo /Reproduction History /Reproductive History - box tender: /Reproductive Hx- box tender Hx Now Gestational Age (in weeks): EDC: Hx Hx Para Hx Section SAB No 06/28/25 08:40 Active Medications Active Medications: Current Medications Generic Name Dose Route Start Last Admin Trade Name Freq PRN Reason Stop Dose Admin Acetaminophen 650 mg 07/05/25 05:46 Acetaminophen 325 Mg Tablet GT Q6H PRN PRN Pain 1-10 Or Fever>100.7 Al Hydroxide/Mg Hydroxide 30 ml 07/05/25 05:46 Mag Hydrox/Al Hydrox/Simeth 30 Ml Udc GT Q6H PRN PRN Gastric Burning Albuterol/Ipratropium 3 ml 07/05/25 05:46 Ipratropium/Albuterol Sulfate 3 Ml Ampul.Neb INHALATION Q4H PRN PRN SHORTNESS OF BREATH Ascorbic Acid 500 mg 07/05/25 10:00 07/05/25 11:44 Ascorbic Acid 500 Mg Tablet GT Not Given DAILY MICA Azithromycin 250 mg 07/05/25 22:00 07/05/25 22:52 Azithromycin 250 Mg Tablet GT 250 mg QHS MICA Administration Calamine/Phenol 1 applic 07/05/25 10:00 07/05/25 22:51 Menthol/Lanolin/Calamine/Znox 113 Gm Tube TOPICAL 1 appful BID MICA Administration Protocol Cholecalciferol 25 mcg 07/05/25 10:00 07/05/25 11:44 Cholecalciferol (Vit D3) 25 Mcg Tablet (1,000 Units) GT Not Given DAILY MICA Digoxin 250 mcg 07/05/25 10:00 07/05/25 08:36 Digoxin 250 Mcg Tablet GT 250 mcg DAILY MICA Administration Ethambutol HCl 1,200 mg 07/05/25 10:00 07/05/25 13:59 Ethambutol Hcl 400 Mg Tablet PO Not Given DAILY MICA Ferrous Sulfate 300 mg 07/05/25 08:00 07/05/25 11:46 Ferrous Sulfate 300 Mg/5 Ml Udc GT Not Given DAILYCM MICA Folic Acid 1 mg 07/05/25 08:00 07/05/25 11:46 Folic Acid 1 Mg Tablet GT Not Given DAILYCM MICA Sodium Chloride 250 mls @ 15 mls/hr 07/05/25 05:03 IV .[id number] PRN Saline Flush Sodium Chloride 250 mls @ 15 mls/hr 07/05/25 05:03 IV .[id number] PRN Additional IVPB Infusion Meropenem 2 gm/ Sodium 140 mls @ 45 mls/hr 07/05/25 08:00 07/06/25 03:02 Chloride IV Infused Q12 MICA Infusion Lactose 1,000 mls @ 60 mls/hr 07/05/25 08:10 07/05/25 23:51 Pivot 1.5 Deny GT Not Given .[id number] MICA Magnesium Hydroxide 30 ml 07/05/25 05:46 Magnesium Hydroxide 30 Ml Udc GT DAILY PRN PRN Constipation Melatonin 3 mg 07/05/25 05:46 Melatonin 3 Mg Tablet GT QHS PRN PRN INSOMNIA Metoclopramide HCl 5 mg 07/05/25 14:03 Metoclopramide 10 Mg/2 Ml Vial IV Q6H PRN PRN NAUSEA/VOMITING Metoprolol Tartrate 75 mg 07/05/25 10:00 07/05/25 22:46 Metoprolol Tartrate 25 Mg Tablet GT 75 mg BID [facility] Administration Protocol Montelukast Sodium 10 mg 07/05/25 22:00 07/05/25 22:52 Montelukast 10 Mg Tablet GT 10 mg QHS [facility] Administration Nystatin 1 applic 07/05/25 10:00 07/05/25 22:51 Nystatin Powder 15gm Bottle TOPICAL 1 applic BID [facility] Administration Protocol Ondansetron HCl 4 mg 07/05/25 05:46 Ondansetron Odt 4 Mg Tablet PO Q6H PRN PRN Nausea/Vomiting Pantoprazole Sodium 40 mg 07/05/25 10:00 07/05/25 11:44 Pantoprazole Sodium 40 Mg Tablet PO Not Given DAILY [facility] Prednisone 20 mg 07/05/25 08:00 07/05/25 08:36 Prednisone 20 Mg Tablet GT 20 mg DAILYCM MICA Administration Rifampin 600 mg 07/05/25 12:00 07/05/25 13:33 Rifampin 300 Mg Capsule PO 600 mg DAILY [facility] Administration Sertraline HCl 50 mg 07/05/25 10:00 07/05/25 08:36 Sertraline 50 Mg Tablet GT 50 mg DAILY [facility] Administration Sodium Chloride 10 - 40 ml 07/05/25 05:03 0.9% Saline Lock 10 Ml Syringe IV UD PRN SALINE FLUSH Trimethoprim/Sulfamethoxazole 1 tablet 07/06/25 08:00 Smz/Tmp Ds Tablet GT [id number] [facility] Medical History Acute cystitis with hematuria Wide-complex tachycardia Low iron Anemia Depression Dysphagia Gastrostomy in place History of steroid therapy Thyroid nodule Uses wheelchair Gout Prostate disease Antisynthetase syndrome Thyroid cyst Allergic rhinitis Major depressive disorder BPH (benign prostatic hyperplasia) Low back pain Disorder of zinc metabolism GERD (gastroesophageal reflux disease) Osteoporosis Adult failure to thrive Right bundle branch block Hypertension Atrial fibrillation Dysphagia, oropharyngeal Abscess of right lower extremity Personal history of immunosupression therapy Orthostatic hypotension PAF (paroxysmal atrial fibrillation) Steroid dependence Neuropathic pain Antisynthetase syndrome History of shingles Ambulatory dysfunction Shingles Abscess of left thigh BOOP (bronchiolitis obliterans with organizing pneumonia) Wears glasses High cholesterol Easy bruising Back pain Injury of head and neck Blackout Gastric reflux Non-smoker On home oxygen therapy Hoarseness Chronic cough History of echocardiogram Hypertension History of stress test Cardiology follow-up encounter History of atrial fibrillation Atrial fibrillation COVID-19 Osteoporosis Kidney stones Atrial fibrillation RBBB (right bundle branch block) Antisynthetase syndrome Essential hypertension Mixed hyperlipidemia Asthma Interstitial lung disease GERD (gastroesophageal reflux disease) Fatty liver BPH (benign prostatic hyperplasia) Lung nodule Vasovagal syncope Abnormal cardiac CT angiography Home Medications ?Medication ?Instructions ?Recorded ?Last Taken ?Type denosumab 60 mg/mL subcutaneous 60 mg subcut [id number] low calcuim 07/14/21 Unknown History syringe (Prolia) pantoprazole 40 mg tablet,delayed 40 mg PO DAILY reflu x 07/14/21 06/26/25 History release lactobacillus combination no.9 4 4,000 mmu cells PO DA ROBERT supplement 01/01/22 06/26/25 History billion cell capsule (Adult 50 Plus Probiotic) montelukast 10 mg tablet 10 mg feeding tube QHS aller gies 05/12/23 06/26/25 History (Singulair) ascorbic acid (vitamin C) 500 mg 500 mg PO DAILY suppl e 10/10/24 06/12/25 History capsule prednisone 10 mg tablet 20 mg feeding tube DAILYCM s teriod 05/21/25 06/26/25 History cholecalciferol (vitamin D3) 25 25 mcg feeding tube DA ROBERT 05/23/25 06/26/25 History mcg (1,000 unit) tablet (Vitamin supplement D3) ferrous sulfate 300 mg (60 mg 325 mg feeding tube CALLIE Y 05/23/25 06/26/25 History iron)/5 mL oral liquid supplemetn folic acid 1 mg tablet 1 mg feeding tube DAILY supp lement 05/23/25 06/26/25 History ipratropium 0.5 mg-albuterol 3 mg 3 ml inhalation Q4H PRN pneumonuia 05/23/25 06/26/25 History (2.5 mg base)/3 mL nebulization soln mometasone 220 mcg/actuation(60 1 inh inhalation BID s ob 05/23/25 06/26/25 History doses) breath activated powder inhaler (Asmanex Twisthaler) nystatin 100,000 unit/gram topical 1 applic topical BI D yeast 05/23/25 06/26/25 History powder ondansetron 4 mg disintegrating 4 mg PO Q6H PRN Nausea /Vomiting 05/23/25 06/23/25 History tablet sertraline 50 mg tablet 50 mg feeding tube DAILY dep ression 05/23/25 06/26/25 History sulfamethoxazole 800 1 tab feeding tube MOWEFR AT B 05/23/25 06/25/25 History mg-trimethoprim 160 mg tablet (Bactrim DS) ethambutol 400 mg tablet 1,200 mg feeding tube Q24H n /a 06/11/25 06/26/25 History azithromycin 250 mg tablet 250 mg feeding tube QHS ant ibiotic 06/12/25 06/26/25 History rifabutin 150 mg capsule 300 mg feeding tube DAILY 06/26/25 History antibacterial acetaminophen 325 mg tablet 650 mg feeding tube Q6H ND N PRN 06/27/25 Unknown History Pain 1-10 Or Fever>100.7 apixaban 5 mg tablet (Eliquis) 5 mg feeding tube BID A fib 06/27/25 06/26/25 History nutritional supplements 0.08 60 ml feeding tube .24 Nu trition 06/27/25 Unknown History gram-2 kcal/mL liquid for tube feed (Nutren 2.0) cefdinir 300 mg capsule 300 mg PO Q12 6 days #0 caps 07/02/25 Unknown Rx digoxin 250 mcg (0.25 mg) tablet 250 mcg PO DAILY 30 d ays #0 tabs 07/02/25 Unknown Rx metoprolol tartrate 25 mg tablet 75 mg (3 x 25 mg) G-t ube BID 30 07/02/25 Unknown Rx days #0 tabs Allergy/AdvReac Type Severity Reaction Status Date / Time monosodium glutamate Allergy Abd Verified 06/13/25 12:58 cramps/diarrhea Penicillins (PCN) Allergy Rash Verified 06/13/25 12:58 allopurinol AdvReac Unknown cough Verified 06/13/25 12:58 morphine AdvReac Other Verified 06/13/25 12:58 tamsulosin (From Flomax) AdvReac Other Verified 06/13/25 12:58 Family History Grandfather CVA (cerebral vascular accident) Grandmother Congestive heart failure Grandmother Cardiac pacemaker in situ Mother Heart disease Hypertension Father Heart disease Cardiac arrhythmia Surgical History History of renal stent History of incision and drainage Hx of cystoscopy History of umbilical hernia repair History of inguinal hernia repair Social History household members: spouse Smoking Status: Never smoker alcohol intake: current details: Rare substance use type: does not use caffeine: Yes Type: coffee Number of servings: 1 Review of Systems (Anesthesia) ROS Narrative System reviewed and no additional complaints, except as documented.
[2025-07-06] MEDS: Lactated Ringers 1,000 ML 15 ML IV (09:00)
--- NOTE | 2025-07-06 09:39 | CON.PCM_ITS ---
HPI Consult Data Date of Consult: 07/06/25 HPI Narrative Reason for Consultation: Left kidney stones HPI Narrative: YARON BUTLER, is a 74 male plan to proceed with left ureteroscopy placement access sheath and removal of the stones and left kidney [facility] Medical History Acute cystitis with hematuria Wide-complex tachycardia Low iron Anemia Depression Dysphagia Gastrostomy in place History of steroid therapy Thyroid nodule Uses wheelchair Gout Prostate disease Antisynthetase syndrome Thyroid cyst Allergic rhinitis Major depressive disorder BPH (benign prostatic hyperplasia) Low back pain Disorder of zinc metabolism GERD (gastroesophageal reflux disease) Osteoporosis Adult failure to thrive Right bundle branch block Hypertension Atrial fibrillation Dysphagia, oropharyngeal Abscess of right lower extremity Personal history of immunosupression therapy Orthostatic hypotension PAF (paroxysmal atrial fibrillation) Steroid dependence Neuropathic pain Antisynthetase syndrome History of shingles Ambulatory dysfunction Shingles Abscess of left thigh BOOP (bronchiolitis obliterans with organizing pneumonia) Wears glasses High cholesterol Easy bruising Back pain Injury of head and neck Blackout Gastric reflux Non-smoker On home oxygen therapy Hoarseness Chronic cough History of echocardiogram Hypertension History of stress test Cardiology follow-up encounter History of atrial fibrillation Atrial fibrillation COVID-19 Osteoporosis Kidney stones Atrial fibrillation RBBB (right bundle branch block) Antisynthetase syndrome Essential hypertension Mixed hyperlipidemia Asthma Interstitial lung disease GERD (gastroesophageal reflux disease) Fatty liver BPH (benign prostatic hyperplasia) Lung nodule Vasovagal syncope Abnormal cardiac CT angiography Home Medications ?Medication ?Instructions ?Recorded ?Last Taken ?Type denosumab 60 mg/mL subcutaneous 60 mg subcut [id number] low calcuim 07/14/21 Unknown History syringe (Prolia) pantoprazole 40 mg tablet,delayed 40 mg PO DAILY reflu x 07/14/21 06/26/25 History release lactobacillus combination no.9 4 4,000 mmu cells PO DA ROBERT supplement 01/01/22 06/26/25 History billion cell capsule (Adult 50 Plus Probiotic) montelukast 10 mg tablet 10 mg feeding tube QHS aller gies 05/12/23 06/26/25 History (Singulair) ascorbic acid (vitamin C) 500 mg 500 mg PO DAILY suppl e 10/10/24 06/12/25 History capsule prednisone 10 mg tablet 20 mg feeding tube DAILYCM s teriod 05/21/25 06/26/25 History cholecalciferol (vitamin D3) 25 25 mcg feeding tube DA ROBERT 05/23/25 06/26/25 History mcg (1,000 unit) tablet (Vitamin supplement D3) ferrous sulfate 300 mg (60 mg 325 mg feeding tube CALLIE Y 05/23/25 06/26/25 History iron)/5 mL oral liquid supplemetn folic acid 1 mg tablet 1 mg feeding tube DAILY supp lement 05/23/25 06/26/25 History ipratropium 0.5 mg-albuterol 3 mg 3 ml inhalation Q4H PRN pneumonuia 05/23/25 06/26/25 History (2.5 mg base)/3 mL nebulization soln mometasone 220 mcg/actuation(60 1 inh inhalation BID s ob 05/23/25 06/26/25 History doses) breath activated powder inhaler (Asmanex Twisthaler) nystatin 100,000 unit/gram topical 1 applic topical BI D yeast 05/23/25 06/26/25 History powder ondansetron 4 mg disintegrating 4 mg PO Q6H PRN Nausea /Vomiting 05/23/25 06/23/25 History tablet sertraline 50 mg tablet 50 mg feeding tube DAILY dep ression 05/23/25 06/26/25 History sulfamethoxazole 800 1 tab feeding tube MOWEFR AT B 05/23/25 06/25/25 History mg-trimethoprim 160 mg tablet (Bactrim DS) ethambutol 400 mg tablet 1,200 mg feeding tube Q24H n /a 06/11/25 06/26/25 History azithromycin 250 mg tablet 250 mg feeding tube QHS ant ibiotic 06/12/25 06/26/25 History rifabutin 150 mg capsule 300 mg feeding tube DAILY 06/26/25 History antibacterial acetaminophen 325 mg tablet 650 mg feeding tube Q6H MT N PRN 06/27/25 Unknown History Pain 1-10 Or Fever>100.7 apixaban 5 mg tablet (Eliquis) 5 mg feeding tube BID A fib 06/27/25 06/26/25 History nutritional supplements 0.08 60 ml feeding tube .24 Nu trition 06/27/25 Unknown History gram-2 kcal/mL liquid for tube feed (Nutren 2.0) cefdinir 300 mg capsule 300 mg PO Q12 6 days #0 caps 08/11/25 Unknown Rx digoxin 250 mcg (0.25 mg) tablet 250 mcg PO DAILY 30 d ays #0 tabs 07/02/25 Unknown Rx metoprolol tartrate 25 mg tablet 75 mg (3 x 25 mg) G-t ube BID 30 07/02/25 Unknown Rx days #0 tabs Allergy/AdvReac Type Severity Reaction Status Date / Time monosodium glutamate Allergy Abd Verified 06/13/25 12:58 cramps/diarrhea Penicillins (PCN) Allergy Rash Verified 06/13/25 12:58 allopurinol AdvReac Unknown cough Verified 06/13/25 12:58 morphine AdvReac Other Verified 06/13/25 12:58 tamsulosin (From Flomax) AdvReac Other Verified 06/13/25 12:58 Family History Grandfather CVA (cerebral vascular accident) Grandmother Congestive heart failure Grandmother Cardiac pacemaker in situ Mother Heart disease Hypertension Father Heart disease Cardiac arrhythmia Surgical History History of renal stent History of incision and drainage Hx of cystoscopy History of umbilical hernia repair History of inguinal hernia repair Social History household members: spouse Smoking Status: Never smoker alcohol intake: current details: Rare substance use type: does not use caffeine: Yes Type: coffee Number of servings: 1 Lab / Micro Data 07/06/25 04:08 07/06/25 04:08 Labs: Laboratory Results - last 24 hr 07/05/25 09:29: WBC 14.6 H, RBC 3.54 L, Hgb 8.5 L, Hct 31.7 L, MCV 89.5, MCH 24.0 L, MCHC 26.8 L, RDW Std Deviation 59.0 H, RDW Coeff of Opal 18.1 H, Plt Count 446, MPV 9.8, Immature Gran % (Auto) 0.600, Neut % (Auto) 88.2 H, Lymph % (Auto) 2.6 L, [place] % (Auto) 6.3, Eos % (Auto) 2.2, Baso % (Auto) 0.1, Absolute Neuts (auto) 12.9 H, Absolute Lymphs (auto) 0.38 L, Nucleated RBC % 0, Sodium 148 H, Potassium 5.0, Chloride 110 H, Carbon Dioxide 30.0, Anion Gap 8, BUN 21 H , Creatinine 0.59 L, Estim Creat Clear Calc 86.18, Est GFR (MDRD) Non-Af 103, B UN/Creatinine Ratio 35.9 H, Glucose 93, Calcium 8.3, Phosphorus 2.3 L, Magnesium 2.3 H, Total Bilirubin 0.28, AST 38, ALT 10, Alkaline Phosphatase 49, Total Protein 5.9, Albumin 2.8 L, Globulin 3.1, Albumin/Globulin Ratio 0.9, TSH 0.996, Digoxin 1.56 07/05/25 12:25: Urine Color Yellow, Urine Clarity Sl. Cloudy, Urine pH 7.0, Ur Specific Maidens 1.010, Urine Protein 100 H, Urine Glucose (UA) Normal, Urine Ketones Negative, Urine Occult Blood 250 H, Urine Nitrite Negative, Urine Bilirubin Negative, Urine Urobilinogen Normal, Ur Leukocyte Esterase 500 H, Urine RBC 5-10 SEEN, Urine WBC >100 SEEN, Ur Squamous Epith Cells 0 SEEN, Urine Bacteria 0 SEEN, Urine Mucus 0 SEEN 07/06/25 04:08: WBC 13.0 H, RBC 3.46 L, Hgb 8.5 L, Hct 31.0 L, MCV 89.6, MCH 24.6 L, MCHC 27.4 L, RDW Std Deviation 59.9 H, RDW Coeff of Opal 18.4 H, Plt Count 411, MPV 10.3, Immature Gran % (Auto) 0.500, Neut % (Auto) 85.2 H, Lymph % (Auto) 2.8 L, [place] % (Auto) 7.1, Eos % (Auto) 4.2, Baso % (Auto) 0.2, Absolute Neuts (auto) 11.1 H, Absolute Lymphs (auto) 0.37 L, Nucleated RBC % 0, Differential Comment SCANNED, Sodium 145, Potassium 4.6, Chloride 106, Carbon Dioxide 29.6, Anion Gap 9, BUN 19, Creatinine 0.59 L, Estim Creat Clear Calc 95.91, Est GFR (MDRD) Non-Af 103, BUN/Creatinine Ratio 31.7 H, Glucose 80, Calcium 8.2 Micro: Microbiology 07/06/25 07:45 Stool Stool Lactoferrin - Final 07/06/25 07:45 Stool Stool Occult Blood (SHRUTI) - Final
[2025-07-06] MEDS: Lidocaine 1% (5 ml sdv) 5 ML Vial 6 ML IV (10:02)
--- NOTE | 2025-07-06 10:20 | CALC_PTH ---
PATIENT: YARON BUTLER LOC: [facility] U#:[id number] AGE/SX: 74/M ROOM: [facility] RE07/05/[address]: Dr. Jluis Botello MD : 1950 BED: 1 DIS: 07/08/2025 SPEC #: [id number] RECD: 07/06/25 11:56 STATUS: KAITLIN SORIANO #: [id number] STANLEY: 07/06/25 10:[address]: Devon Bullard DEPT: SURGICAL PATHOLOGY RECD BY: Edmundo Bolden ENTERED: 07/06/25 13:54 SP TYPE: Calculi OTHR DR: DO Dr. Tanya Cueto, MD Dr. Chuckie Palacio Dr., MD Tissues: A - CALCULI Procedures: Surgery Specimen Level I HEADER OPERATION: Ureteroscopy, stent PRE-OP DIAGNOSIS: Ureteral calculus left, acute cystitis with hematuria, nausea / vomiting TISSUE SUBMITTED: A- Left kidney stone GROSS DIAGNOSIS A. Calculi, kidney, left: - Urolithiasis (gross examination only). - Chemical analysis pending, to be reported separately GROSS DESCRIPTION A. Received fresh labeled the patient's name and date of . Designated as left kidney stone are 3 irregular garnett to light brown calculi, 0.4 cm to 0.5 cm. No sections are submitted. The specimen is for gross examination only. The specimen is sent for stone analysis. NE 07/06/2025 CPT:70218
--- NOTE | 2025-07-06 11:25 | OP.PCM_ITS ---
Operative Report (Standard) Operative Information Date of Procedure: 07/06/25 Pre-Operative Diagnosis: Infected left kidney stones status post stent Post-Operative Diagnosis: Same Surgery/Procedure Performed: Cystoscopy, left ureteroscopy laser lithotripsy of stones, basket of many fragments, no stent, placement of access sheath, left retrograde pyelogram teacher adult education: No Type of Anesthesia: General RN Documented Start/Stop Times: Operation Date: 07/06/25 10:20 Case Time Into Pre-Op 07/06/25 08:43 Anesthesia Start 07/06/25 09:53 Into Room 07/06/25 09:53 Out of Pre-Op 07/06/25 09:53 Procedure Start 07/06/25 10:27 Procedure End 07/06/25 11:25 Procedure Start Time: 10:27 Procedure Stop Time: : Select all DRAINS/GRAFTS/IMPLANTS that apply: None Estimated Blood Loss: None Specimen collected: Yes Description of specimen(s) removed: Kidney stone fragments Description of surgery: This is a 74-year-old male with multiple medical problems presented to the hospital about a month ago with obstruction at that point I did ureteroscopy laser lithotripsy of branch stone the left kidney we took out the stent after this but then he presented back to the hospital with more stones in the left kidney the stones appear infectious in nature and are growing rapidly so he been admitted for IV antibiotics organ to proceed with ureteroscopy laser lithotripsy and the plan is to basket out all the fragments and Jacinto infectious stones and the only way to stop the stones from forming as a get of all out. Patient was taken back to the operating room after smooth induction of anesthesia he was placed supine on the table penis and testicles were prepped and draped in usual fashion went into the bladder with a 21 [place]an rigid cystourethroscope used a flexible grasper and grabbed the existing stent and pulled the stent out to the meatus I then put a safety wire through the stent we then used a dual-lumen 10 [place]an catheter and placed a second wire in 2 wires up in the left kidney retrograde pyelogram was then performed to delineate the anatomy and then I left the safety wire in place and over the working wire I advanced a 12 [place] 14 [place]wandan access sheath up in the left kidney making sure the sheath was then at the UPJ of the kidney and went up very easily without any force. Then through the access sheath I went in with the flexible 8 [place] Olympus ureteroscope we used a 365 ?m laser fiber energy settings were 0.4 J and 100 Hz using the thulium laser and I proceeded with laser and all the stone fragments in the renal pelvis of the left kidney the stones appeared mostly soft infectious nature as a late was related to the many stones a bit stuck on the wall of the pelvis and the renal pelvis and once I lasered all the stones into small pieces then I decided to basket all the fragments out to ensure that the stones went come back and grow back. So then using a 9 gauge basket we went in through the access sheath multiple times [id number] basket and all the fragments one by one probably basketed over 25 fragments from the left kidney to make sure that all the fragments were removed between basketing I would go in with just the with just the ureteroscope under flush to find more stones finally I was satisfied that I had basketed all the fragments the need to be basket out there was no major stones left nothing of any size, consequence so unsuccessfully basket all the fragments out then I pulled back in the access sheath we did basket out 1 more large stone that could not go through the access sheath so we pulled this besides the access sheath and they would look back in 1 more time again no other stone fragments in the kidney complete removal of all the stone fragments and that I could see I worked my way down the ureter no stone fragments along the course the ureter access sheath removed wire was removed I did not put a stent back in and patient's bladder was drained anesthetic was reversed surgery took a long times inside the basket ladder fragments from the left kidney. Surgical Findings: Multiple infectious looking stones in the left kidney lasered and all the fragments then removed Complications Complications: No Admit VTE Documentation VTE Present on Admission: No VTE Mechan Device Prophylaxis: SCD's VTE Pharm Prophylaxis ordered?: No
--- NOTE | 2025-07-06 11:57 | PCM.POST.ANE ---
Anesthesia: Postop Eval I Current Vital Signs Temperature: 97.4 F Pulse Rate: 75 Blood Pressure: 114/82 Respiratory Rate: 10 (patient in recovery with bipap to assist in respirations) Pulse Ox: 95 Assessment Airway patent: Yes Spontaneous unlabored respirations: Yes nausea: No Vomiting: No Anesthesia Complication: No Fluid Hydration Crystalloid volume administer (ml): 1,200 Total IV fluid infused: 1,200 Progress Note Anesthesia document: Postop Eval 1 completed: Yes
--- NOTE | 2025-07-06 12:13 | POSTOPAN2_ITS ---
Anesthesia Postop Eval I Sum Postop Eval Completion status Anesthesia document: Postop Eval 1 completed: Yes Anesthesia Postop Eval I Summary Anesthesia Postop Eval I Summary: Anesthesia Postop Eval I: Assessment Summary Airway patent Yes 07/06/25 11:58 SPICE [email or web address].[email or web address] Spontaneous unlabored Yes 07/06/25 11:58 SPICE [email or web address].KCRO respirations Mental status nausea No 07/06/25 11:58 SPICE CLEANER.KCRO Vomiting No 07/06/25 11:58 SPICE CLEANER.KCRO Anesthesia Postop Eval I: Fluid Summary Crystalloid volume administer 1,200 07/06/25 11:58 SPICE CLEANER.KCRO (ml) Colloids volume administered ( ml) Blood Product volume administered (ml) Total IV fluid infused 1,200 07/06/25 11:58 SPICE [email or web address].KCRO Anesthesia Postop Eval I: Summary Notes Anesthesia Complication No 07/06/25 11:58 SPICE [email or web address].KCRO Anesthesia Complication Comment: Post-operative progress note Anesthesia: Postop Eval II Evaluation Mental status: Awake Pain Level: 0 nausea: No Vomiting: No Progress Note Post-operative progress note: Debilitated patient awake, poor respiratory effort requiring BiPAP in PACU following extubation. Hemodynamically stable with much improved oxygenation. Complications Anesthesia Complication: No
--- NOTE | 2025-07-06 12:13 | PCM.POSTANE2 ---
Anesthesia Postop Eval I Sum Postop Eval Completion status Anesthesia document: Postop Eval 1 completed: Yes Anesthesia Postop Eval I Summary Anesthesia Postop Eval I Summary: Anesthesia Postop Eval I: Assessment Summary Airway patent Yes 07/06/25 11:58 PLANT PRODUCTION WORKER.[email or web address] Spontaneous unlabored Yes 07/06/25 11:58 PLANT PRODUCTION WORKER.KCRO respirations Mental status nausea No 07/06/25 11:58 PLANT PRODUCTION WORKER.KCRO Vomiting No 07/06/25 11:58 PLANT PRODUCTION WORKER.KCRO Anesthesia Postop Eval I: Fluid Summary Crystalloid volume administer 1,200 07/06/25 11:58 PLANT PRODUCTION WORKER.KCRO (ml) Colloids volume administered ( ml) Blood Product volume administered (ml) Total IV fluid infused 1,200 07/06/25 11:58 PLANT PRODUCTION WORKER.KCRO Anesthesia Postop Eval I: Summary Notes Anesthesia Complication No 07/06/25 11:58 PLANT PRODUCTION WORKER.KCRO Anesthesia Complication Comment: Post-operative progress note Anesthesia: Postop Eval II Evaluation Mental status: Awake Pain Level: 0 nausea: No Vomiting: No Progress Note Post-operative progress note: Debilitated patient awake, poor respiratory effort requiring BiPAP in PACU following extubation. Hemodynamically stable with much improved oxygenation. Complications Anesthesia Complication: No
--- NOTE | 2025-07-06 12:17 | CASEMGMT ---
Social Work SW met w/pt this morning briefly to inquire about LW/POA documents. Pt states he wants to update them and add to them, wants to leave his as POA. Pt was about to leave the floor for a test, SW explained would follow up w/him later today. SW has checked mulitple times throughout the day, pt is not back to the room. SW will follow up w/pt about LW/POA as time allows this afternoon. KALLI Pascual
--- NOTE | 2025-07-06 13:28 | CASEMGMT ---
Addendum entered by Elke Alex 07/06/25 13:41: Social Work SW did notify [facility] via [facility] [facility] that pt at this time is a full code. SW also let them know in [facility] that we are exploring updating POA w/pt. KALLI Pascual Original Note: Social Work Pt is back to his room. SW spoke w/him again about completing POA for Healthcare. Pt now is not up for it, will consider completing the documents tomorrow. SW inquired again w/pt who he would want as POA for Healthcare. Pt states now he wants to make his daughter Hussein QUIGLEY. He then asked if it would be kept confidential. SW explained would not be calling to tell her, but if it ever came to be that he did need someone to make decisions for him, the would likely find out as we would be calling the daughter. Pt states his family has been fighting. SW inquired if this is new for his family, pt did not directly answer that question. SW inquired what family is fighting about. Pt states they were all here fighting yesterday, his asked everyone to leave the room so she could have five minutes alone w/her . Pt states this did not go over very well. SW offered support to pt. SW did ask pt about code status, pt states he wants to be full code, for now. SW explained this is up to him at this point, to decide his code status. SW explained will have the SW tomorrow stop in to see him, to see what he wants to do about his POA documents. SW asked him to think about it this evening. SW also explained will let [facility] know he wants to be a full code at this time. SW will continue to follow. KALLI Pascual
[2025-07-06] MEDS: ETHAMBUTOL HCL 400 MG TABLET 1200 MG PO (13:43)
[2025-07-06] MEDS: Cholecalciferol (VIT D3) 25 MCG TABLET (1,000 UNITS) GT (13:43)
[2025-07-06] MEDS: Smz/Tmp Ds Tablet 1 TABLET GT (13:44)
[2025-07-06] MEDS: Lactobacillis Acidophilus 1 CAP GT (13:45)
[2025-07-06] MEDS: Meropenem 2 GM in 0.9% Normal Saline (100mL Bag) 100 ML IV ×2 (13:46→23:05)
--- NOTE | 2025-07-06 15:22 | PCM.PN.HOSP ---
Reason for Visit Chief Complaint: AMS. Objective Data Objective Data Vital Signs: Vital Signs Temp Pulse Resp BP Pulse Ox O2 Del Method O2 Flow Rate 98.2 F 74 17 96/49 L 97 Nasal Cannula 4 07/06/25 12:51 07/06/25 12:51 07/06/25 12:51 07/06/25 12:51 07/06/25 12:51 07/06/25 12:51 07/06/25 12:51 FiO2 40 07/06/25 12:30 Oxygen Flow Rate (L/min) 4 Oxygen Delivery Method Nasal Cannula Weight: 206 lb 5.643 oz Body Mass Index (BMI) 29.6 Intake & Output: Intake and Output for Last 24 Hours 07/04/25 07/05/25 07/06/25 23:59 23:59 23:59 Intake Total 1361.67 / 1361.67 1340 / 1340 Output Total 350 / 950 1255 / 1255 Balance 1011.67 / 411.67 85 / 85 Lab / Micro Data 07/06/25 04:08 07/06/25 04:08 Labs: Laboratory Results - last 24 hr 07/06/25 04:08: WBC 13.0 H, RBC 3.46 L, Hgb 8.5 L, Hct 31.0 L, MCV 89.6, MCH 24.6 L, MCHC 27.4 L, RDW Std Deviation 59.9 H, RDW Coeff of Opal 18.4 H, Plt Count 411, MPV 10.3, Immature Gran % (Auto) 0.500, Neut % (Auto) 85.2 H, Lymph % (Auto) 2.8 L, [place] % (Auto) 7.1, Eos % (Auto) 4.2, Baso % (Auto) 0.2, Absolute Neuts (auto) 11.1 H, Absolute Lymphs (auto) 0.37 L, Nucleated RBC % 0, Differential Comment SCANNED, Sodium 145, Potassium 4.6, Chloride 106, Carbon Dioxide 29.6, Anion Gap 9, BUN 19, Creatinine 0.59 L, Estim Creat Clear Calc 95.91, Est GFR (MDRD) Non-Af 103, BUN/Creatinine Ratio 31.7 H, Glucose 80, Calcium 8.2 Micro: Microbiology 07/06/25 07:45 Stool Stool Lactoferrin - Final 07/06/25 07:45 Stool Enteric Bacteriology - Final 07/06/25 07:45 Stool Clostridioides difficile (PCR) - Final 07/06/25 07:45 Stool Stool Occult Blood (SHRUTI) - Final 07/05/25 12:25 Urine, Random Urine Culture - Preliminary Culture exhibits no growth. Physical Exam Narrative Seen and examined. Patient has been bedbound for lower extremity weakness. Denies cough or shortness of breath. Had left ureteroscopic laser lithotripsy for stone today. Admitted with UTI. No fever Physical exam: General: Alert, Oriented x3, Cooperative, bedbound for about 1 year HEENT: Atraumatic, PERRLA, EOMI, Normocephalic. Oral: No Gingival or Mucosal Lesions/ Ulcerations Neck: Supple, No JVD, Negative Carotid Bruits Chest wall/Lungs: Air entry diminished in bilateral lung bases right more than left. No crepitations Cardiovascular: Sinus arrhythmia, PVCs normal S1,S2, No M/G/R Abdomen: Bowel Sounds Present, Soft, PEG tube present. Tenderness present in left lower and left upper quadrant : No dysuria. No suprapubic tenderness. Extremities: Bilateral pitting edema, nonambulatory, Capillary Refill Less than 3 Seconds Skin: Surgical scar over right thigh for infection Musculoskeletal: No Tenderness to Palpation of Joints or Extremities. Bilateral paraplegia, ROM restricted with mild contracture Neurological: Cranial nerves II-XII grossly intact, DTR 2+/4. Chronic paraplegia. Foot drop bilateral. Psych/Mental Status: Flat affect Assessment & Plan Assessment/Plan (1) Acute cystitis with hematuria: (2) Leukocytosis: QUALIFIERS: Leukocytosis type: unspecified Qualified Code(s): D72.829 - Elevated white blood cell count, unspecified (3) Ureteral calculus, left: (4) Hypernatremia: (5) Metabolic encephalopathy: (6) Adult failure to thrive: (7) Paroxysmal atrial fibrillation: (8) Chronic anticoagulation: PLAN: Plan 74-year-old gentleman was admitted with lethargic, low blood pressure and slow to respond. He was discharged on last Wednesday when he went to [facility], he was not acting right, swelling increased thirst sent to pulmonary and then direct admit here. 1. Complicated UTI with mild hematuria, from 8 mm stone at left UPJ: Patient had left ureteric stent on May 2025 and had then multiple recurrent UTI. Admitted in PCU. Started on IV meropenem. ID was consulted and agree with antibiotic choice. 07/06: Patient had cystoscopy with ureteroscopy, left ureteric laser lithotripsy for infected left kidney stone. No stent. Left retrograde pyelogram. Urine culture preliminary no growth. 2. Mild Hypernatremia of 150 mmol/L present on admission: Repeat labs shows sodium 148 slight improvement. Free water ordered. serum sodium improving 150 today Patient had diarrhea for which enteric pathogen panel, C. difficile are negative. Lactoferrin negative. Stool for occult blood negative Microbiology Past 72 Hours 3. Acute infectious and metabolic Encephalopathyin the setting of chronically ill patient who is bedbound with adult [id number] and history of PEG tube placement for protein-calorie malnutrition in setting of chronic infection : Currently patient is alert awake oriented x 3. Talking coherent. Acute encephalopathy resolved. TSH normal. Recent admission here from June 27, 2025 to July 03, 2025 for treatment of sepsis with metabolic encephalopathy due to to recurrent UTI complicated by pneumonia and paroxysmal atrial fibrillation; with RVR with wide-complex tachycardia due to underlying RBBB 07/06: Patient neurological status is better. 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 Hoskins from orthopedic surgery with patient declining potentially curative AKA, history of Left upper extremity weakness and bilateral foot drop with inability to dorsiflex 6. Paroxysmal atrial fibrillation; on digoxin and apixaban - Maintain current treatment with digoxin after we check level but hold apixaban with possible impending cystoscopy. 7. Interstitial lung disease with asthma; on mycophenolate mofetil 3g BID, prednisone 20 mg daily, montelukast and budesonide twice daily - Stable on present therapy. 8. Essential hypertension; on metoprolol - Continue metoprolol as previous. Osteoporosis; on denosumab - Restart denosumab as outpatient. Overweight; with BMI of 27.2 this admission in the setting of previously known fatty liver disease - Weight loss is unlikely. DVT prophylaxis - SCD's only with impending cystoscopy. Laboratory Results 07/06/25 07:45 Stool Stool Lactoferrin - Final 07/06/25 07:45 Stool Enteric Bacteriology - Final 07/06/25 07:45 Stool Clostridioides difficile (PCR) - Final 07/06/25 07:45 Stool Stool Occult Blood (SHRUTI) - Final 07/05/25 12:25 Urine, Random Urine Culture - Preliminary Culture exhibits no growth. Laboratory Results 07/06/25 04:08: WBC 13.0 H, RBC 3.46 L, Hgb 8.5 L, Hct 31.0 L, MCV 89.6, MCH 24.6 L, MCHC 27.4 L, RDW Std Deviation 59.9 H, RDW Coeff of Opal 18.4 H, Plt Count 411, MPV 10.3, Immature Gran % (Auto) 0.500, Neut % (Auto) 85.2 H, Lymph % (Auto) 2.8 L, [place] % (Auto) 7.1, Eos % (Auto) 4.2, Baso % (Auto) 0.2, Absolute Neuts (auto) 11.1 H, Absolute Lymphs (auto) 0.37 L, Nucleated RBC % 0, Differential Comment SCANNED, Sodium 145, Potassium 4.6, Chloride 106, Carbon Dioxide 29.6, Anion Gap 9, BUN 19, Creatinine 0.59 L, Estim Creat Clear Calc 95.91, Est GFR (MDRD) Non-Af 103, BUN/Creatinine Ratio 31.7 H, Glucose 80, Calcium 8.2 07/06/25 11:07: Stone Source Pending, Stone Size Pending, Stone Weight Pending, Stone Color Pending 07/05/25 ,TSH 0.996, Digoxin 1.56 07/05/25 12:25: Urine Color Yellow, Urine Clarity Sl. Cloudy, Urine pH 7.0, Ur Specific [place] 1.010, Urine Protein 100 H, Urine Glucose (UA) Normal, Urine Ketones Negative, Urine Occult Blood 250 H, Urine Nitrite Negative, Urine Bilirubin Negative, Urine Urobilinogen Normal, Ur Leukocyte Esterase 500 H, Urine RBC 5-10 SEEN, Urine WBC >100 SEEN, Ur Squamous Epith Cells 0 SEEN, Urine Bacteria 0 SEEN, Urine Mucus 0 SEEN Clinical Impression(s) from Imaging Studies Abdomen/Pelvis CT 08/14/25 06:54 IMPRESSION: Stable nonobstructive bilateral intrarenal calculi. A left-sided double-J stent catheter is seen. Gallstones. Bilateral renal cysts. Small bilateral pleural effusions with bibasilar atelectasis and/or infiltration. Reading Location: [id number] Charges/Coding Visit Charges Inpatient E&M: 20284 Subs Hosp L2
--- NOTE | 2025-07-06 15:24 | RAD_ITS ---
PROCEDURE: CHEST 1 VIEW (PORTABLE) 07/06/2025 REASON FOR EXAM: SOB TECHNIQUE: Frontal view of the chest. FINDINGS: Hardware: None. Heart: Heart size is mildly enlarged. Lungs: Dense right hilar and left lung base consolidation with air bronchograms. No definite pneumothorax Bones: The bones are unremarkable. RAD/Chest 1 View (Portable) IMPRESSION: Dense right hilar and left lung base consolidation with air bronchograms. Reading Location: [facility]
--- NOTE | 2025-07-06 16:22 | CASEMGMT ---
Social Work Green sheet placed on chart along w/transport form in anticipation of weekend discharge. KALLI Pascual
[2025-07-06] MEDS: 0.9% Saline Lock 10 ML Syringe IV (23:05)
[2025-07-07] VITALS (9 sets, daily range): BP systolic 100–145; BP diastolic 55–108; PULSE 75–95; RESP 16–18; TEMP 36.4–37.2; O2SAT 94–99; BMI 26.2
[2025-07-07 08:46] LABS: Hematocrit 34.7 % (40-54); Hemoglobin 9.5 g/dL (13.0-16.5); Immature Granulocytes Count 0.060 X10^3/uL (0.0-0.0); Mean Corp Hgb Conc 27.4 g/dL (32-36); Mean Corpuscular Volume 87.8 fL (80-94); Mean Platelet Vol. 9.5 fl (6.2-12.0); NRBC Flagged by Analyzer 0 % (0-5); POSITIVE DIFFERENTIAL YES; Platelet Count 363 K/mm3 (150-450); RBC Distribution Width CV 18.2 % (11.6-14.6); RBC Distribution Width SD 58.1 fl (35.1-43.9); Red Blood Count 3.95 M/mm3 (4.6-6.2); White Blood Count 12.7 K/mm3 (4.4-11.0)
--- NOTE | 2025-07-07 09:13 | PN.HOSP_ITS ---
Reason for Visit Chief Complaint: AMS. Objective Data Objective Data Vital Signs: Vital Signs Temp Pulse Resp BP Pulse Ox O2 Del Method O2 Flow Rate 98 F 95 18 105/55 L 94 Nasal Cannula 3 07/07/25 06:00 07/07/25 06:00 07/07/25 06:00 07/07/25 06:00 07/07/25 07:36 07/07/25 07:36 07/07/25 07:36 FiO2 40 07/06/25 12:30 Oxygen Flow Rate (L/min) 3 Oxygen Delivery Method Nasal Cannula Weight: 182 lb 8.684 oz Body Mass Index (BMI) 26.2 Intake & Output: Intake and Output for Last 24 Hours 07/05/25 07/06/25 07/07/25 23:59 23:59 23:59 Intake Total 1361.67 / 1361.67 2580 / 2580 140 / 140 Output Total 350 / 950 1955 / 2655 1100 / 1100 Balance 1011.67 / 411.67 625 / -75 -960 / -960 Lab / Micro Data 07/07/25 08:34 07/07/25 08:34 Labs: Laboratory Results - last 24 hr 07/07/25 08:34: WBC 12.7 H, RBC 3.95 L, Hgb 9.5 L, Hct 34.7 L, MCV 87.8, MCH 24.1 L, MCHC 27.4 L, RDW Std Deviation 58.1 H, RDW Coeff of Opal 18.2 H, Plt Count 363, MPV 9.5, Immature Gran % (Auto) 0.500, Neut % (Auto) 90.0 H, Lymph % (Auto) 1.4 L, [place] % (Auto) 6.6, Eos % (Auto) 1.3, Baso % (Auto) 0.2, Absolute Neuts (auto) 11.4 H, Absolute Lymphs (auto) 0.18 L, Nucleated RBC % 0 Micro: Microbiology 07/05/25 12:25 Urine, Random Urine Culture - Final Presumptive C albicans 07/06/25 07:45 Stool Stool Lactoferrin - Final 07/06/25 07:45 Stool Enteric Bacteriology - Final 07/06/25 07:45 Stool Clostridioides difficile (PCR) - Final 07/06/25 07:45 Stool Stool Occult Blood (SHRUTI) - Final Radiography Diagnostic Testing: Radiology Impression Chest X-Ray 07/06/25 15:24 IMPRESSION: Dense right hilar and left lung base consolidation with air bronchograms. Reading Location: [facility] Physical Exam Narrative Seen and examined. Patient has been bedbound for lower extremity weakness. Patient has cough which is getting better sometimes bring phlegm. Shortness of breath also better. Had left ureteroscopic laser lithotripsy for stone today. Admitted with UTI. No fever Physical exam: General: Alert, Oriented x3, Cooperative, bedbound for about 1 year HEENT: Atraumatic, PERRLA, EOMI, Normocephalic. Oral: No Gingival or Mucosal Lesions/ Ulcerations Neck: Supple, No JVD, Negative Carotid Bruits Chest wall/Lungs: Air entry diminished in bilateral lung bases right more than left. Occasional coarse crepitation Cardiovascular: Sinus arrhythmia, PVCs normal S1,S2, No M/G/R Abdomen: Bowel Sounds Present, Soft, PEG tube present. Tenderness present in left lower and left upper quadrant : No dysuria. No suprapubic tenderness. Extremities: Bilateral pitting edema, nonambulatory, Capillary Refill Less than 3 Seconds Skin: Surgical scar over right thigh for infection Musculoskeletal: No Tenderness to Palpation of Joints or Extremities. Bilateral paraplegia, ROM restricted with mild contracture Neurological: Cranial nerves II-XII grossly intact, DTR 2+/4. Chronic paraplegia. Foot drop bilateral. Psych/Mental Status: Flat affect Assessment & Plan Assessment/Plan (1) Acute cystitis with hematuria: (2) Leukocytosis: QUALIFIERS: Leukocytosis type: unspecified Qualified Code(s): D 72.829 - Elevated white blood cell count, unspecified (3) Ureteral calculus, left: (4) Hypernatremia: (5) Metabolic encephalopathy: (6) Adult failure to thrive: (7) Paroxysmal atrial fibrillation: (8) Chronic anticoagulation: PLAN: Plan 74-year-old gentleman was admitted with lethargic, low blood pressure and slow to respond. He was discharged on last Wednesday when he went to [place], he was not acting right, swelling increased thirst sent to pulmonary and then direct admit here. 1. Complicated UTI with mild hematuria, from 8 mm stone at left UPJ: Patient had left ureteric stent on May 2025 and had then multiple recurrent UTI. Admitted in PCU. Started on IV meropenem. ID was consulted and agree with antibiotic choice. 07/06: Patient had cystoscopy with ureteroscopy, left ureteric laser lithotripsy for infected left kidney stone. No stent. Left retrograde pyelogram. Urine culture preliminary no growth. 2. Mild Hypernatremia of 150 mmol/L present on admission: Repeat labs shows sodium 148 slight improvement. Free water ordered. 07/06 serum sodium improving 150 today Patient had diarrhea for which enteric pathogen panel, C. difficile are negative. Lactoferrin negative. Stool for occult blood negative 07/07: Sodium 144. Patient on tube feed as supplemental. Anticipate discharge tomorrow 3. Acute infectious and metabolic Encephalopathyin the setting of chronically ill patient who is bedbound with adult [id number] and history of PEG tube placement for protein-calorie malnutrition in setting of chronic infection, concern of pulmonary infection: Currently patient is alert awake oriented x 3. Talking coherent. Acute encephalopathy resolved. TSH normal. Recent admission here from June 27, 2025 to July 03, 2025 for treatment of sepsis with metabolic encephalopathy due to to recurrent UTI complicated by pneumonia and paroxysmal atrial fibrillation; with RVR with wide-complex tachycardia due to underlying RBBB 07/06: Patient neurological status is better. He understands and responds adequately 07/07: Talked to patient's daughter. His cough is better.Chest x-ray independently viewed and shows dense consolidation over right hilar and left lung base opacity. It looks better than the previous chest x-ray. Patient on meropenem and other antibiotics. Aggressive bronchopulmonary hygiene. Urinary antigens were negative on 06/27. Blood cultures also negative on 06/27. 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 Hoskins from orthopedic surgery with patient declining potentially curative AKA, history of Left upper extremity weakness and bilateral foot drop with inability to dorsiflex 6. Paroxysmal atrial fibrillation; on digoxin and apixaban - Maintain current treatment with digoxin after we check level but hold apixaban with possible impending cystoscopy. 7. Interstitial lung disease with asthma; on mycophenolate mofetil 3g BID, prednisone 20 mg daily, montelukast and budesonide twice daily - Stable on present therapy. 8. Essential hypertension; on metoprolol - Continue metoprolol as previous. Osteoporosis; on denosumab - Restart denosumab as outpatient. Overweight; with BMI of 27.2 this admission in the setting of previously known fatty liver disease - Weight loss is unlikely. DVT prophylaxis - SCD's only with impending cystoscopy. Microbiology Past 72 Hours 07/05/25 12:25 Urine, Random Urine Culture - Final Presumptive C albicans 07/06/25 07:45 Stool Stool Lactoferrin - Final 07/06/25 07:45 Stool Enteric Bacteriology - Final 07/06/25 07:45 Stool Clostridioides difficile (PCR) - Final 07/06/25 07:45 Stool Stool Occult Blood (SHRUTI) - Final Laboratory Results 07/07/25 08:34: WBC 12.7 H, RBC 3.95 L, Hgb 9.5 L, Hct 34.7 L, MCV 87.8, MCH 24.1 L, MCHC 27.4 L, RDW Std Deviation 58.1 H, RDW Coeff of Opal 18.2 H, Plt Count 363, MPV 9.5, Immature Gran % (Auto) 0.500, Neut % (Auto) 90.0 H, Lymph % (Auto) 1.4 L, [place] % (Auto) 6.6, Eos % (Auto) 1.3, Baso % (Auto) 0.2, Absolute Neuts (auto) 11.4 H, Absolute Lymphs (auto) 0.18 L, Nucleated RBC % 0, Sodium 144, Potassium 4.8, Chloride 105, Carbon Dioxide 30.4, Anion Gap 9, BUN 18, C reatinine 0.67 L, Estim Creat Clear Calc 86.18, Est GFR (MDRD) Non-Af 99, B UN/Creatinine Ratio 26.2 H, Glucose 92, Calcium 8.4 Clinical Impression(s) from Imaging Studies Abdomen/Pelvis CT 07/05/25 06:54 IMPRESSION: Stable nonobstructive bilateral intrarenal calculi. A left-sided double-J stent catheter is seen. Gallstones. Bilateral renal cysts. Small bilateral pleural effusions with bibasilar atelectasis and/or infiltration. Reading Location: [facility] Charges/Coding Visit Charges Inpatient E&M: 78669 Subs Hosp L2
[2025-07-07] MEDS: Lactobacillis Acidophilus 1 CAP GT (09:47)
[2025-07-07] MEDS: ETHAMBUTOL HCL 400 MG TABLET 1200 MG PO (09:48)
[2025-07-07] MEDS: Cholecalciferol (VIT D3) 25 MCG TABLET (1,000 UNITS) GT (09:49)
[2025-07-07] MEDS: Meropenem 2 GM in 0.9% Normal Saline (100mL Bag) 100 ML IV ×2 (09:58→22:26)
[2025-07-07 10:12] LABS: Anion Gap 9 (5-15); BUN 18 mg/dL (4-19); BUN/Creat Ratio 26.2 RATIO (10-20); Calcium,Total 8.4 mg/dL (7.6-11.0); Carbon Dioxide 30.4 mmol/L (21.0-32.0); Chloride 105 mmol/L (98-108); Estimated Creatinine Clearance 86.18 ml/min (50-250); Glucose 92 mg/dL (70-99); Potassium 4.8 mmol/L (3.3-5.1)
--- NOTE | 2025-07-07 11:28 | NURSING ---
Pt called out and stated he needed O2 turned up, it wasn't enough- SPO2 was 71 on 2L. Titrated up until adequate saturation achieved.
--- NOTE | 2025-07-07 12:52 | CASEMGMT ---
Social Work SW met with pt to follow up on advance directive conversation. When SW started the conversation, pt immediately said that he wanted to be a full code. SW confirmed with pt that this is his current code status. SW informed pt that HCPOA from 2010 is on file which names his Ashley as primary decision maker and son Bunny as secondary. SW reiterated with pt that HCPOA will only take effect if pt is unable to make decisions for himself. Pt states that he wants to name the following on HCPOA 1. Juan Diego, dgt 2. Bunny, son 3. Ashley, . Pt states he wants this to remain strictly confidential. SW explained that the new document would need to be sent to [facility] so they are aware of and can carry out pt's wishes. SW does not have addresses and phone numbers for Juan Diego and Bunny and therefore documents cannot be completed. SW inquired with pt if he would be willing to call them and get needed information. Pt is not willing to do this. Pt states that if he changes HCPOA, his with blow up and if he does not change it his dgt will be angry. SW provided support to pt regarding the difficult situation he finds himself in. SW asked pt to tell SW how he wants to handle this situation at this time, and pt declines to move forward with making new papers at this time. SW spoke with pt regarding his medical decline over the last year and pt depression. Pt affect remains flat, and pt does not verbalize his feelings, but does acknowledge it has been very difficult. SW talked with pt regarding seeing a counselor at [facility], however pt declined. Pt did request to speak with a bilingual kindergarten teacher and states he is part of [place] and would like to talk to Father Noel. With pt permission, left with [facility] Chaplain Co[place] and requested that [place] reach out to Father Noel and request visits at [facility] if pt is not still here on Wednesday. Plan: Return to [facility], when medically ready. Green Sheet on chart to facilitate weekend discharge EDMUND [place]
--- NOTE | 2025-07-07 14:50 | PN.HOSP_ITS ---
Reason for Visit Chief Complaint: AMS. Objective Data Objective Data Vital Signs: Vital Signs Temp Pulse Resp BP Pulse Ox O2 Del Method O2 Flow Rate 99.0 F 95 16 101/71 94 Nasal Cannula 5 07/07/25 09:43 07/07/25 09:48 07/07/25 09:43 07/07/25 09:43 07/07/25 11:28 07/07/25 11:28 07/07/25 11:28 FiO2 40 07/06/25 12:30 Oxygen Flow Rate (L/min) 5 Oxygen Delivery Method Nasal Cannula Weight: 182 lb 8.684 oz Body Mass Index (BMI) 26.2 Intake & Output: Intake and Output for Last 24 Hours 07/05/25 07/06/25 07/07/25 23:59 23:59 23:59 Intake Total 1361.67 / 1361.67 2580 / 2580 749.5 / 749.5 Output Total 350 / 950 1955 / 2655 1100 / 1100 Balance 1011.67 / 411.67 625 / -75 -350.5 / -350.5 Lab / Micro Data 07/07/25 08:34 07/07/25 08:34 Labs: Laboratory Results - last 24 hr 07/07/25 08:34: WBC 12.7 H, RBC 3.95 L, Hgb 9.5 L, Hct 34.7 L, MCV 87.8, MCH 24.1 L, MCHC 27.4 L, RDW Std Deviation 58.1 H, RDW Coeff of Opal 18.2 H, Plt Count 363, MPV 9.5, Immature Gran % (Auto) 0.500, Neut % (Auto) 90.0 H, Lymph % (Auto) 1.4 L, [place] % (Auto) 6.6, Eos % (Auto) 1.3, Baso % (Auto) 0.2, Absolute Neuts (auto) 11.4 H, Absolute Lymphs (auto) 0.18 L, Nucleated RBC % 0, Sodium 144, Potassium 4.8, Chloride 105, Carbon Dioxide 30.4, Anion Gap 9, BUN 18, C reatinine 0.67 L, Estim Creat Clear Calc 86.18, Est GFR (MDRD) Non-Af 99, B UN/Creatinine Ratio 26.2 H, Glucose 92, Calcium 8.4 Micro: Microbiology 07/05/25 12:25 Urine, Random Urine Culture - Final Presumptive C albicans 07/06/25 07:45 Stool Stool Lactoferrin - Final 07/06/25 07:45 Stool Enteric Bacteriology - Final 07/06/25 07:45 Stool Clostridioides difficile (PCR) - Final 07/06/25 07:45 Stool Stool Occult Blood (SHRUTI) - Final Radiography Diagnostic Testing: Radiology Impression Chest X-Ray 07/06/25 15:24 IMPRESSION: Dense right hilar and left lung base consolidation with air bronchograms. Reading Location: [facility] Physical Exam Narrative Seen and examined. Patient has been bedbound for lower extremity weakness. Patient has cough which is getting better sometimes bring phlegm. Shortness of breath also better. Had left ureteroscopic laser lithotripsy for stone today. Admitted with UTI. No fever Physical exam: General: Alert, Oriented x3, Cooperative, bedbound for about 1 year HEENT: Atraumatic, PERRLA, EOMI, Normocephalic. Oral: No Gingival or Mucosal Lesions/ Ulcerations Neck: Supple, No JVD, Negative Carotid Bruits Chest wall/Lungs: Air entry diminished in bilateral lung bases right more than left. Occasional coarse crepitation Cardiovascular: Sinus arrhythmia, PVCs normal S1,S2, No M/G/R Abdomen: Bowel Sounds Present, Soft, PEG tube present. Tenderness present in left lower and left upper quadrant : No dysuria. No suprapubic tenderness. Extremities: Bilateral pitting edema, nonambulatory, Capillary Refill Less than 3 Seconds Skin: Surgical scar over right thigh for infection Musculoskeletal: No Tenderness to Palpation of Joints or Extremities. Bilateral paraplegia, ROM restricted with mild contracture Neurological: Cranial nerves II-XII grossly intact, DTR 2+/4. Chronic paraplegia. Foot drop bilateral. Psych/Mental Status: Flat affect Assessment & Plan Assessment/Plan (1) Acute cystitis with hematuria: (2) Leukocytosis: QUALIFIERS: Leukocytosis type: unspecified Qualified Code(s): D 72.829 - Elevated white blood cell count, unspecified (3) Ureteral calculus, left: (4) Hypernatremia: (5) Metabolic encephalopathy: (6) Adult failure to thrive: (7) Paroxysmal atrial fibrillation: (8) Chronic anticoagulation: PLAN: Plan 74-year-old gentleman was admitted with lethargic, low blood pressure and slow to respond. He was discharged on last Wednesday when he went to [place], he was not acting right, swelling increased thirst sent to pulmonary and then direct admit here. 1. Complicated UTI with mild hematuria, from 8 mm stone at left UPJ: Patient had left ureteric stent on May 2025 and had then multiple recurrent UTI. Admitted in PCU. Started on IV meropenem. ID was consulted and agree with antibiotic choice. 07/06: Patient had cystoscopy with ureteroscopy, left ureteric laser lithotripsy for infected left kidney stone. No stent. Left retrograde pyelogram. Urine culture preliminary no growth. 2. Mild Hypernatremia of 150 mmol/L present on admission: Repeat labs shows sodium 148 slight improvement. Free water ordered. serum sodium improving 150 today Patient had diarrhea for which enteric pathogen panel, C. difficile are negative. Lactoferrin negative. Stool for occult blood negative 3. Acute infectious and metabolic Encephalopathyin the setting of chronically ill patient who is bedbound with adult [id number] and history of PEG tube placement for protein-calorie malnutrition in setting of chronic infection, concern of pulmonary infection: Currently patient is alert awake oriented x 3. Talking coherent. Acute encephalopathy resolved. TSH normal. Recent admission here from June 27, 2025 to July 03, 2025 for treatment of sepsis with metabolic encephalopathy due to to recurrent UTI complicated by pneumonia and paroxysmal atrial fibrillation; with RVR with wide-complex tachycardia due to underlying RBBB 07/06: Patient neurological status is better. He understands and responds adequately 07/07: Talked to patient's daughter. His cough is better.Chest x-ray independently viewed and shows dense consolidation over right hilar and left lung base opacity. It looks better than the previous chest x-ray. Patient on meropenem and other antibiotics. Aggressive bronchopulmonary hygiene. Urinary antigens were negative on 06/27. Blood cultures also negative on 06/27. 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 Hoskins from orthopedic surgery with patient declining potentially curative AKA, history of Left upper extremity weakness and bilateral foot drop with inability to dorsiflex 6. Paroxysmal atrial fibrillation; on digoxin and apixaban - Maintain current treatment with digoxin after we check level but hold apixaban with possible impending cystoscopy. 7. Interstitial lung disease with asthma; on mycophenolate mofetil 3g BID, prednisone 20 mg daily, montelukast and budesonide twice daily - Stable on present therapy. 8. Essential hypertension; on metoprolol - Continue metoprolol as previous. Osteoporosis; on denosumab - Restart denosumab as outpatient. Overweight; with BMI of 27.2 this admission in the setting of previously known fatty liver disease - Weight loss is unlikely. DVT prophylaxis - SCD's only with impending cystoscopy. Laboratory Results 07/06/25 07:45 Stool Stool Lactoferrin - Final 07/06/25 07:45 Stool Enteric Bacteriology - Final 07/06/25 07:45 Stool Clostridioides difficile (PCR) - Final 07/06/25 07:45 Stool Stool Occult Blood (SHRUTI) - Final 07/05/25 12:25 Urine, Random Urine Culture - Preliminary Culture exhibits no growth. Laboratory Results 07/06/25 04:08: WBC 13.0 H, RBC 3.46 L, Hgb 8.5 L, Hct 31.0 L, MCV 89.6, MCH 24.6 L, MCHC 27.4 L, RDW Std Deviation 59.9 H, RDW Coeff of Opal 18.4 H, Plt Count 411, MPV 10.3, Immature Gran % (Auto) 0.500, Neut % (Auto) 85.2 H, Lymph % (Auto) 2.8 L, [place] % (Auto) 7.1, Eos % (Auto) 4.2, Baso % (Auto) 0.2, Absolute Neuts (auto) 11.1 H, Absolute Lymphs (auto) 0.37 L, Nucleated RBC % 0, Differential Comment SCANNED, Sodium 145, Potassium 4.6, Chloride 106, Carbon Dioxide 29.6, Anion Gap 9, BUN 19, Creatinine 0.59 L, Estim Creat Clear Calc 95.91, Est GFR (MDRD) Non-Af 103, BUN/Creatinine Ratio 31.7 H, Glucose 80, Calcium 8.2 07/06/25 11:07: Stone Source Pending, Stone Size Pending, Stone Weight Pending, Stone Color Pending 07/05/25 ,TSH 0.996, Digoxin 1.56 07/05/25 12:25: Urine Color Yellow, Urine Clarity Sl. Cloudy, Urine pH 7.0, Ur Specific [place] 1.010, Urine Protein 100 H, Urine Glucose (UA) Normal, Urine Ketones Negative, Urine Occult Blood 250 H, Urine Nitrite Negative, Urine Bilirubin Negative, Urine Urobilinogen Normal, Ur Leukocyte Esterase 500 H, Urine RBC 5-10 SEEN, Urine WBC >100 SEEN, Ur Squamous Epith Cells 0 SEEN, Urine Bacteria 0 SEEN, Urine Mucus 0 SEEN Clinical Impression(s) from Imaging Studies Abdomen/Pelvis CT 07/05/25 06:54 IMPRESSION: Stable nonobstructive bilateral intrarenal calculi. A left-sided double-J stent catheter is seen. Gallstones. Bilateral renal cysts. Small bilateral pleural effusions with bibasilar atelectasis and/or infiltration. Reading Location: [facility]
[2025-07-08 00:31] VITALS: PULSE 81; RESP 20
[2025-07-08 03:45] VITALS: BP 111/55; PULSE 63; RESP 17; TEMP 36.6; O2SAT 100
[2025-07-08 05:04] VITALS: BMI 27.6
[2025-07-08 06:04] LABS: Hematocrit 33.4 % (40-54); Hemoglobin 9.8 g/dL (13.0-16.5); Immature Granulocytes Count 0.070 X10^3/uL (0.0-0.0); Mean Corp Hgb Conc 29.3 g/dL (32-36); Mean Corpuscular Volume 87.9 fL (80-94); Mean Platelet Vol. 10.0 fl (6.2-12.0); NRBC Flagged by Analyzer 0 % (0-5); POSITIVE DIFFERENTIAL YES; Platelet Count 349 K/mm3 (150-450); RBC Distribution Width CV 18.6 % (11.6-14.6); RBC Distribution Width SD 58.4 fl (35.1-43.9); Red Blood Count 3.80 M/mm3 (4.6-6.2); White Blood Count 10.9 K/mm3 (4.4-11.0)
[2025-07-08 06:47] LABS: Anion Gap 9 (5-15); BUN 15 mg/dL (4-19); BUN/Creat Ratio 22.5 RATIO (10-20); Calcium,Total 8.4 mg/dL (7.6-11.0); Carbon Dioxide 30.8 mmol/L (21.0-32.0); Chloride 104 mmol/L (98-108); Estimated Creatinine Clearance 86.18 ml/min (50-250); Glucose 71 mg/dL (70-99); Potassium 4.5 mmol/L (3.3-5.1)
--- NOTE | 2025-07-08 08:59 | PCM.TXEXTCAR ---
Diet Diet Order/Speech Therapy: INPATIENT Hospital Diet / Speech Therapy Order(s) 07/06/25 11:25 Diet: Regular - General Type of Dietary Supplement:: Ensure Plus High Protein Diet Comments: 240ml chocolate EPHP with breakfast and dinner Routine Orders/Code Status Suppository Type: Dulcolax 10mg Suppository Frequency: Daily PRN Routine Lab Work: CBC (In 1 week) and BMP (In 1 week) DC O2, CPAP, BIPAP needs Home O2 Discharge instructions: Yes Type of respiratory needs?: Oxygen Oxygen frequency: Continuous Continuous oxygen liters per minute: 2 Wound(s) LEFT UPPER ARM: Wound Type: Skin Tear LEFT FA: Wound Type: Skin Tear RIGHT BUTTOCK: Wound Type: Pressure Injury Therapies Extremity Affected:: Bilateral Lower Physical Therapy: Eval and Treat Occupational Therapy: Eval and Treat Speech Therapy: Eval and Treat Problem/Diagnosis (1) Acute cystitis with hematuria: Status: Acute Code(s): N30.01 - Acute cystitis with hematuria (2) Leukocytosis: Status: Acute Code(s): D72.829 - Elevated white blood cell count, unspecified (3) Ureteral calculus, left: Status: Acute Code(s): N20.1 - Calculus of ureter (4) Hypernatremia: Status: Acute Code(s): E87.0 - Hyperosmolality and hypernatremia (5) Metabolic encephalopathy: Status: Acute Code(s): G93.41 - Metabolic encephalopathy (6) Adult failure to thrive: Status: Acute Code(s): R62.7 - Adult failure to thrive (7) Paroxysmal atrial fibrillation: Status: Acute Code(s): I48.0 - Paroxysmal atrial fibrillation (8) Chronic anticoagulation: Status: Acute Code(s): Z79.01 - intermediate (current) use of anticoagulants Plan 74-year-old gentleman was admitted with lethargic, low blood pressure and slow to respond. He was discharged on last Wednesday when he went to [facility], he was not acting right, swelling increased thirst sent to pulmonary and then direct admit here. 1. Complicated UTI with mild hematuria, from 8 mm stone at left UPJ: Patient had left ureteric stent on May 2025 and had then multiple recurrent UTI. Admitted in PCU. Started on IV meropenem. ID was consulted and agree with antibiotic choice. 07/06: Patient had cystoscopy with ureteroscopy, left ureteric laser lithotripsy for infected left kidney stone. No stent. Left retrograde pyelogram. Urine culture preliminary no growth. 2. Mild Hypernatremia of 150 mmol/L present on admission: Repeat labs shows sodium 148 slight improvement. Free water ordered. 07/06 serum sodium improving 150 today Patient had diarrhea for which enteric pathogen panel, C. difficile are negative. Lactoferrin negative. Stool for occult blood negative 07/07: Sodium 144. Patient on tube feed as supplemental. Anticipate discharge tomorrow 3. Acute infectious and metabolic Encephalopathyin the setting of chronically ill patient who is bedbound with adult [id number] and history of PEG tube placement for protein-calorie malnutrition in setting of chronic infection, concern of pulmonary infection: Currently patient is alert awake oriented x 3. Talking coherent. Acute encephalopathy resolved. TSH normal. Recent admission here from June 27, 2025 to July 03, 2025 for treatment of sepsis with metabolic encephalopathy due to to recurrent UTI complicated by pneumonia and paroxysmal atrial fibrillation; with RVR with wide-complex tachycardia due to underlying RBBB 07/06: Patient neurological status is better. He understands and responds adequately 07/07: Talked to patient's daughter. His cough is better.Chest x-ray independently viewed and shows dense consolidation over right hilar and left lung base opacity. It looks better than the previous chest x-ray. Patient on meropenem and other antibiotics. Aggressive bronchopulmonary hygiene. Urinary antigens were negative on 06/27. Blood cultures also negative on 06/27. 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 Hoskins from orthopedic surgery with patient declining potentially curative AKA, history of Left upper extremity weakness and bilateral foot drop with inability to dorsiflex 6. Paroxysmal atrial fibrillation; on digoxin and apixaban - Maintain current treatment with digoxin after we check level but hold apixaban with possible impending cystoscopy. 7. Interstitial lung disease with asthma; on mycophenolate mofetil 3g BID, prednisone 20 mg daily, montelukast and budesonide twice daily - Stable on present therapy. 8. Essential hypertension; on metoprolol - Continue metoprolol as previous. Osteoporosis; on denosumab - Restart denosumab as outpatient. Overweight; with BMI of 27.2 this admission in the setting of previously known fatty liver disease - Weight loss is unlikely. DVT prophylaxis - SCD's only with impending cystoscopy. Microbiology Past 72 Hours 07/05/25 12:25 Urine, Random Urine Culture - Final Presumptive C albicans 07/06/25 07:45 Stool Stool Lactoferrin - Final 07/06/25 07:45 Stool Enteric Bacteriology - Final 07/06/25 07:45 Stool Clostridioides difficile (PCR) - Final 07/06/25 07:45 Stool Stool Occult Blood (SHRUTI) - Final Laboratory Results 07/07/25 08:34: WBC 12.7 H, RBC 3.95 L, Hgb 9.5 L, Hct 34.7 L, MCV 87.8, MCH 24.1 L, MCHC 27.4 L, RDW Std Deviation 58.1 H, RDW Coeff of Opal 18.2 H, Plt Count 363, MPV 9.5, Immature Gran % (Auto) 0.500, Neut % (Auto) 90.0 H, Lymph % (Auto) 1.4 L, Piatt % (Auto) 6.6, Eos % (Auto) 1.3, Baso % (Auto) 0.2, Absolute Neuts (auto) 11.4 H, Absolute Lymphs (auto) 0.18 L, Nucleated RBC % 0, Sodium 144, Potassium 4.8, Chloride 105, Carbon Dioxide 30.4, Anion Gap 9, BUN 18, Creatinine 0.67 L, Estim Creat Clear Calc 86.18, Est GFR (MDRD) Non-Af 99, BUN/Creatinine Ratio 26.2 H, Glucose 92, Calcium 8.4 Clinical Impression(s) from Imaging Studies Abdomen/Pelvis CT 07/05/25 06:54 IMPRESSION: Stable nonobstructive bilateral intrarenal calculi. A left-sided double-J stent catheter is seen. Gallstones. Bilateral renal cysts. Small bilateral pleural effusions with bibasilar atelectasis and/or infiltration. Reading Location: [id number] Allergies/Procedures Done in Hospital Allergies monosodium glutamate Allergy (Verified 06/13/25 12:58) Abd cramps/diarrhea Penicillins (PCN) Allergy (Verified 06/13/25 12:58) Rash allopurinol Adverse Reaction (Unknown, Verified 06/13/25 12:58) cough morphine Adverse Reaction (Verified 06/13/25 12:58) Other tamsulosin (From Flomax) Adverse Reaction (Verified 06/13/25 12:58) Other Type of Care/Length of Stay Estimated LOS: Convalescent Care Less Than 30 days Type of Care Needed: Skilled Rehab Potential: Good Prognosis: Good Additional Orders/Day of Discharge Day of Discharge: 07/08/25 Dietary and Speech Recommendations Dietitian Recommendations/Changes: 1. Continue regular diet. 2. Will order 240ml chocolate EPHP with breakfast and dinner per pt request. 3. Discontinue Pivot 1.5Cal at 60ml/hr due to pt refusing TF. 4. Initiate and order - via PEG Vital AF 1.2 goal rate 65ml/hr with 105ml water flushes every 4 hours to provide 1872 calories, 117g protein, and 1895mL total free water per day. Would start at 30ml and increase by 35ml every 8-12 hours as tolerated until goal rate is achieved. 5. If pt's PO intake does not increase, recommend increasing Vital AF 1.2Cal to 75ml/hr with 110ml water flushes every 4 hours to provide 2160 calories, 135g protein, and 2119ml total free water per day. 6. Resume Nutren 2.0 when pt returns to SNF. 7. Monitor weight and renal labs. Discharge Plan Admission Admit Date/Time: 07/05/25 05:24 Primary Reason for Your Visit: Complicated UTI Attending Provider: Jluis Botello Primary Care Provider: Tanya Pettit Consulting Providers: Devon Bullard; Mo Joel; Chuckie Alicia Discharge Orders/Prescriptions Prescriptions: Continued pantoprazole 40 mg tablet,delayed release (DR/EC) 40 mg PO DAILY Prolia 60 mg/mL syringe 60 mg subcut [id number] Adult 50 Plus Probiotic 4 billion cell capsule 4,000 mmu cells PO DAILY Rx Instructions: administer with a meal montelukast [Singulair] 10 mg tablet 10 mg feeding tube QHS azithromycin 250 mg tablet 250 mg feeding tube QHS rifabutin 150 mg capsule 300 mg feeding tube DAILY prednisone 10 mg Tablet 20 mg feeding tube DAILYCM cholecalciferol (vitamin D3) [Vitamin D3] 25 mcg (1,000 unit) tablet 25 mcg feeding tube DAILY Asmanex Twisthaler 220 mcg/ actuation (60) aerosol powdr breath activated 1 inh inhalation BID sertraline 50 mg tablet 50 mg feeding tube DAILY nystatin 100,000 unit/gram powder 1 applic topical BID ipratropium-albuterol 0.5 mg-3 mg(2.5 mg base)/3 mL solution for nebulization 3 ml inhalation Q4H PRN Patient Comments: [NO ORIGINAL SIG] ferrous sulfate 300 mg (60 mg iron)/5 mL liquid 325 mg feeding tube DAILY folic acid 1 mg tablet 1 mg feeding tube DAILY sulfamethoxazole-trimethoprim [Bactrim DS] 800-160 mg tablet 1 tab feeding tube MOWEFR Rx Instructions: take every MWF ondansetron 4 mg Tablet,Disintegrating 4 mg PO Q6H PRN (Reason: Nausea/Vomiting) cefdinir 300 mg Capsule 300 mg PO Q12 4 Days Qty: 8 0RF Nutren 2.0 0.08 gram-2 kcal/mL liquid 60 ml feeding tube .24 30 Days Qty: 0 0RF Rx Instructions: 60ml/hr x 24 hours free water 200 ml q 4 hrly, total 1800 ml ascorbic acid (vitamin C) 500 mg capsule 500 mg PO DAILY Rx Instructions: PEG tube ethambutol 400 mg tablet 1,200 mg feeding tube Q24H acetaminophen 325 mg Tablet 650 mg feeding tube Q6H PRN PRN (Reason: Pain 1-10 Or Fever>100.7) Eliquis 5 mg Tablet 5 mg feeding tube BID digoxin 250 mcg (0.25 mg) Tablet 250 mcg PO DAILY 30 Days Qty: 0 0RF metoprolol tartrate 25 mg Tablet 75 mg G-tube BID 30 Days Qty: 0 0RF Referrals / Follow Up: Tanya Pettit DO [Primary Care Provider] - Within 2 Weeks Chuckie Alicia MD [Med Staff - Active Staff] - Within 1 Month Disposition Disposition (needs filled in before D/C Order can be placed): Longterm Facility (2) Leukocytosis Qualifiers: Leukocytosis type: unspecified Qualified Code(s): D72.829 - Elevated white blood cell count, unspecified
--- NOTE | 2025-07-08 09:12 | DS.PCM_ITS ---
Providers Date of Admission: 07/05/25 Date of Discharge: 07/08/25 Primary Care Physician: Dr. Tanya Pettit DO Consultations 07/05/25 05:46 Consult: Urology Routine Consulting Provider: Devon Bullard Reason for Consult: And pending cystoscopy with stent placement. EMERGENT Consult: No Notified: Yes Date Notified: 07/05/25 Time Notified: 06:35 Method of Notification: Verbal 07/05/25 06:56 Consult: Infectious Disease Routine Consulting Provider: Chuckie Alicia Reason for Consult: Recurrent UTI with Left UPJ stone. EMERGENT Consult: No Notified: Yes Date Notified: 07/05/25 Time Notified: 06:56 Method of Notification: Text 07/05/25 22:18 Consult: Onc/Wound/probate judge Routine Comment: Reason For Visit: DEHYDRATION AND ELECTROLYTE IMBALANCE Diagnosis Discharge Diagnosis (1) Acute cystitis with hematuria: Status: Acute Code(s): N30.01 - Acute cystitis with hematuria (2) Leukocytosis: Status: Acute Code(s): D72.829 - Elevated white blood cell count, unspecified Qualifiers: Leukocytosis type: unspecified Qualified Code(s): D72.829 - Elevated white blood cell count, unspecified (3) Ureteral calculus, left: Status: Acute Code(s): N20.1 - Calculus of ureter (4) Hypernatremia: Status: Acute Code(s): E87.0 - Hyperosmolality and hypernatremia (5) Metabolic encephalopathy: Status: Acute Code(s): G93.41 - Metabolic encephalopathy (6) Adult failure to thrive: Status: Acute Code(s): R62.7 - Adult failure to thrive (7) Paroxysmal atrial fibrillation: Status: Acute Code(s): I48.0 - Paroxysmal atrial fibrillation (8) Chronic anticoagulation: Status: Acute 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 He was discharged on last Wednesday when he went to [facility], he was not acting right, swelling increased thirst sent to pulmonary and then direct admit here. 1. Complicated UTI with mild hematuria, from 8 mm stone at left UPJ: Patient had left ureteric stent on May 2025 and had then multiple recurrent UTI. Admitted in PCU. Started on IV meropenem. ID was consulted and agree with antibiotic choice. 07/06: Patient had cystoscopy with ureteroscopy, left ureteric laser lithotripsy for infected left kidney stone. No stent. Left retrograde pyelogram. Urine culture preliminary no growth. 07/07: Urine culture shows King[place] albicans 1000-10,000 colonies. Chest x-ray showed right perihilar consolidation. Discussed with ID and he advised cefdinir for 4 more days. Leukocytosis resolved. Discharge medication conciliation done accordingly 2. Mild Hypernatremia of 150 mmol/L present on admission: Repeat labs shows sodium 148 slight improvement. Free water ordered. 07/06 serum sodium improving 150 today Patient had diarrhea for which enteric pathogen panel, C. difficile are negative. Lactoferrin negative. Stool for occult blood negative 07/07: Sodium 144. Patient on tube feed as supplemental. 07/08: Sodium 144. Creatinine normal. Glucose 71. 3. Acute infectious and metabolic Encephalopathyin the setting of chronically ill patient who is bedbound with adult [id number] and history of PEG tube placement for protein-calorie malnutrition in setting of chronic infection, concern of pulmonary infection: Currently patient is alert awake oriented x 3. Talking coherent. Acute encephalopathy resolved. TSH normal. Recent admission here from June 27, 2025 to July 03, 2025 for treatment of sepsis with metabolic encephalopathy due to to recurrent UTI complicated by pneumonia and paroxysmal atrial fibrillation; with RVR with wide-complex tachycardia due to underlying RBBB 07/06: Patient neurological status is better. He understands and responds adequately 07/07: Talked to patient's daughter. His cough is better.Chest x-ray independently viewed and shows dense consolidation over right hilar and left lung base opacity. It looks better than the previous chest x-ray. Patient on meropenem and other antibiotics. Aggressive bronchopulmonary hygiene. Urinary antigens were negative on 06/27. Blood cultures also negative on 06/27. 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 Hoskins from orthopedic surgery with patient declining potentially curative AKA, history of Left upper extremity weakness and bilateral foot drop with inability to dorsiflex 6. Paroxysmal atrial fibrillation; on digoxin and apixaban - Maintain current treatment with digoxin after we check level but hold apixaban with possible impending cystoscopy. 7. Interstitial lung disease with asthma; on mycophenolate mofetil 3g BID, prednisone 20 mg daily, montelukast and budesonide twice daily - Stable on present therapy. 8. Essential hypertension; on metoprolol - Continue metoprolol as previous. Osteoporosis; on denosumab - Restart denosumab as outpatient. Overweight; with BMI of 27.2 this admission in the setting of previously known fatty liver disease - Weight loss is unlikely. DVT prophylaxis - SCD's only with impending cystoscopy. Discharge medication reconciliation done. Discharge follow-up instructions completed. Discharge process discussed with the patient and all questions were answered to patient's satisfaction. Follow with PCP in 1 to 2 weeks. Discharge to [facility] Total time spent, exact 35 minutes on discharge meds reconciliation, examination, coordination of care with nurses and ancillary staff, review of imaging and blood test and discussion with the patient on follow-up instructions. Microbiology Past 72 Hours 07/05/25 12:25 Urine, Random Urine Culture - Final Presumptive C albicans 07/06/25 07:45 Stool Stool Lactoferrin - Final 07/06/25 07:45 Stool Enteric Bacteriology - Final 07/06/25 07:45 Stool Clostridioides difficile (PCR) - Final 07/06/25 07:45 Stool Stool Occult Blood (SHRUTI) - Final Laboratory Results 07/07/25 08:34: WBC 12.7 H, RBC 3.95 L, Hgb 9.5 L, Hct 34.7 L, MCV 87.8, MCH 24.1 L, MCHC 27.4 L, RDW Std Deviation 58.1 H, RDW Coeff of Opal 18.2 H, Plt Count 363, MPV 9.5, Immature Gran % (Auto) 0.500, Neut % (Auto) 90.0 H, Lymph % (Auto) 1.4 L, Hart % (Auto) 6.6, Eos % (Auto) 1.3, Baso % (Auto) 0.2, Absolute Neuts (auto) 11.4 H, Absolute Lymphs (auto) 0.18 L, Nucleated RBC % 0, Sodium 144, Potassium 4.8, Chloride 105, Carbon Dioxide 30.4, Anion Gap 9, BUN 18, C reatinine 0.67 L, Estim Creat Clear Calc 86.18, Est GFR (MDRD) Non-Af 99, B UN/Creatinine Ratio 26.2 H, Glucose 92, Calcium 8.4 Clinical Impression(s) from Imaging Studies Abdomen/Pelvis CT 07/05/25 06:54 IMPRESSION: Stable nonobstructive bilateral intrarenal calculi. A left-sided double-J stent catheter is seen. Gallstones. Bilateral renal cysts. Small bilateral pleural effusions with bibasilar atelectasis and/or infiltration. Reading Location: [facility] Medications at Discharge Home Medications denosumab 60 mg/mL subcutaneous syringe (Prolia) 60 mg subcut [id number] low calcuim 07/14/21 pantoprazole 40 mg tablet,delayed release 40 mg PO DAILY reflux 07/14/21 lactobacillus combination no.9 4 billion cell capsule (Adult 50 Plus Probiotic) 4,000 mmu cells PO DAILY supplement 01/01/22 montelukast 10 mg tablet (Singulair) 10 mg feeding tube QHS allergies 05/12/23 ascorbic acid (vitamin C) 500 mg capsule 500 mg PO DAILY supple 10/10/24 prednisone 10 mg tablet 20 mg feeding tube DAILYCM steriod 05/21/25 cholecalciferol (vitamin D3) 25 mcg (1,000 unit) tablet (Vitamin D3) 25 mcg feeding tube DAILY supplement 05/23/25 ferrous sulfate 300 mg (60 mg iron)/5 mL oral liquid 325 mg feeding tube DAILY supplemetn 05/23/25 folic acid 1 mg tablet 1 mg feeding tube DAILY supplement 05/23/25 ipratropium 0.5 mg-albuterol 3 mg (2.5 mg base)/3 mL nebulization soln 3 ml inhalation Q4H PRN pneumonuia 05/23/25 mometasone 220 mcg/actuation(60 doses) breath activated powder inhaler (Asmanex Twisthaler) 1 inh inhalation BID sob 05/23/25 nystatin 100,000 unit/gram topical powder 1 applic topical BID yeast 05/23/25 ondansetron 4 mg disintegrating tablet 4 mg PO Q6H PRN Nausea/Vomiting 05/23/25 sertraline 50 mg tablet 50 mg feeding tube DAILY depression 05/23/25 sulfamethoxazole 800 mg-trimethoprim 160 mg tablet (Bactrim DS) 1 tab feeding tube MOWEFR ATB 05/23/25 ethambutol 400 mg tablet 1,200 mg feeding tube Q24H n/a 06/11/25 azithromycin 250 mg tablet 250 mg feeding tube QHS antibiotic 06/12/25 rifabutin 150 mg capsule 300 mg feeding tube DAILY antibacterial 06/12/25 acetaminophen 325 mg tablet 650 mg feeding tube Q6H PRN PRN Pain 1-10 Or Fever>100.7 06/27/25 apixaban 5 mg tablet (Eliquis) 5 mg feeding tube BID Afib 06/27/25 digoxin 250 mcg (0.25 mg) tablet 250 mcg PO DAILY 30 days #0 tabs 07/02/25 metoprolol tartrate 25 mg tablet 75 mg (3 x 25 mg) G-tube BID 30 days #0 tabs 07/02/25 cefdinir 300 mg capsule 300 mg PO Q12 4 days #8 caps 07/08/25 nutritional supplements 0.08 gram-2 kcal/mL liquid for tube feed (Nutren 2.0) 60 ml feeding tube .24 Nutrition 1 month #0 mL 07/08/25 Physical Exam Narrative Seen and examined. Swelling of both upper extremities and lower extremity. Advised incentive spirometry and mobility. Patient has been bedbound for lower extremity weakness. Patient has cough which is getting better sometimes bring phlegm. Shortness of breath also better. Had left ureteroscopic laser lithotripsy for stone on 07/06/2025. Admitted with UTI. No fever Physical exam: General: Alert, Oriented x3, Cooperative, bedbound for about 1 year HEENT: Atraumatic, PERRLA, EOMI, Normocephalic. Oral: No Gingival or Mucosal Lesions/ Ulcerations Neck: Supple, No JVD, Negative Carotid Bruits Chest wall/Lungs: Air entry diminished in bilateral lung bases right more than left. Occasional coarse crepitation Cardiovascular: Sinus arrhythmia, PVCs normal S1,S2, No M/G/R Abdomen: Bowel Sounds Present, Soft, PEG tube present. Tenderness present in left lower and left upper quadrant : No dysuria. No suprapubic tenderness. Extremities: Bilateral upper and lower extremity pitting edema, nonambulatory, Capillary Refill Less than 3 Seconds Skin: Surgical scar over right thigh for infection. Dressing upper extremities for skin erosions. Musculoskeletal: No Tenderness to Palpation of Joints or Extremities. Bilateral paraplegia, ROM restricted with mild contracture Neurological: Cranial nerves II-XII grossly intact, DTR 2+/4. Chronic paraplegia. Foot drop bilateral. Psych/Mental Status: Flat affect Weight / BMI Weight Weight: 192 lb 7.417 oz Body Mass Index (BMI) 27.6 ABG / Lab / Microbiology Data 07/08/25 05:27 07/08/25 05:27 Laboratory: Laboratory Results - last 24 hr 07/07/25 08:34: Sodium 144, Potassium 4.8, Chloride 105, Carbon Dioxide 30.4, Anion Gap 9, BUN 18, Creatinine 0.67 L, Estim Creat Clear Calc 86.18, Est GFR (MDRD) Non-Af 99, BUN/Creatinine Ratio 26.2 H, Glucose 92, Calcium 8.4 07/08/25 05:27: WBC 10.9, RBC 3.80 L, Hgb 9.8 L, Hct 33.4 L, MCV 87.9, MCH 25.8 L, MCHC 29.3 L D, RDW Std Deviation 58.4 H, RDW Coeff of Opal 18.6 H, Plt Count 349, MPV 10.0, Immature Gran % (Auto) 0.600, Neut % (Auto) 85.2 H, Lymph % (Auto) 2.5 L, Hart % (Auto) 9.4, Eos % (Auto) 2.0, Baso % (Auto) 0.3, Absolute Neuts (auto) 9.3 H, Absolute Lymphs (auto) 0.27 L, Nucleated RBC % 0, Sodium 144, Potassium 4.5, Chloride 104, Carbon Dioxide 30.8, Anion Gap 9, BUN 15, C reatinine 0.65 L, Estim Creat Clear Calc 86.18, Est GFR (MDRD) Non-Af 100, B UN/Creatinine Ratio 22.5 H, Glucose 71, Calcium 8.4 Microbiology: Microbiology 07/05/25 12:25 Urine, Random Urine Culture - Final Presumptive C albicans 07/06/25 07:45 Stool Stool Lactoferrin - Final 07/06/25 07:45 Stool Enteric Bacteriology - Final 07/06/25 07:45 Stool Clostridioides difficile (PCR) - Final 07/06/25 07:45 Stool Stool Occult Blood (SHRUTI) - Final D/C Instructions DC O2, CPAP, BIPAP Needs Home O2 Discharge instructions: Yes Type of respiratory needs?: Oxygen Oxygen frequency: Continuous Continuous oxygen liters per minute: 2 DC home with Oxygen: Yes Home O2 MD Review: I have reviewed the oxygen testing, and the patient qualifies for home oxygen equipment and portability. The patient is mobile in the home and the community. Meaningful Use Info Meaningful Use Meaningful Use Diagnoses (Choose all that apply): None applicable Discharge Plan Admission Admit Date/Time: 07/05/25 05:24 Primary Reason for Your Visit: Complicated UTI Attending Provider: Jluis Botello Primary Care Provider: Tanya Pettit Consulting Providers: Devon Bullard; Mo Joel; Chuckie Alicia Discharge Orders/Prescriptions Prescriptions: Continued pantoprazole 40 mg tablet,delayed release (DR/EC) 40 mg PO DAILY Prolia 60 mg/mL syringe 60 mg subcut [id number] Adult 50 Plus Probiotic 4 billion cell capsule 4,000 mmu cells PO DAILY Rx Instructions: administer with a meal montelukast [Singulair] 10 mg tablet 10 mg feeding tube QHS azithromycin 250 mg tablet 250 mg feeding tube QHS rifabutin 150 mg capsule 300 mg feeding tube DAILY prednisone 10 mg Tablet 20 mg feeding tube DAILYCM cholecalciferol (vitamin D3) [Vitamin D3] 25 mcg (1,000 unit) tablet 25 mcg feeding tube DAILY Asmanex Twisthaler 220 mcg/ actuation (60) aerosol powdr breath activated 1 inh inhalation BID sertraline 50 mg tablet 50 mg feeding tube DAILY nystatin 100,000 unit/gram powder 1 applic topical BID ipratropium-albuterol 0.5 mg-3 mg(2.5 mg base)/3 mL solution for nebulization 3 ml inhalation Q4H PRN Patient Comments: [NO ORIGINAL SIG] ferrous sulfate 300 mg (60 mg iron)/5 mL liquid 325 mg feeding tube DAILY folic acid 1 mg tablet 1 mg feeding tube DAILY sulfamethoxazole-trimethoprim [Bactrim DS] 800-160 mg tablet 1 tab feeding tube MOWEFR Rx Instructions: take every MWF ondansetron 4 mg Tablet,Disintegrating 4 mg PO Q6H PRN (Reason: Nausea/Vomiting) cefdinir 300 mg Capsule 300 mg PO Q12 4 Days Qty: 8 0RF Nutren 2.0 0.08 gram-2 kcal/mL liquid 60 ml feeding tube .24 30 Days Qty: 0 0RF Rx Instructions: 60ml/hr x 24 hours free water 200 ml q 4 hrly, total 1800 ml ascorbic acid (vitamin C) 500 mg capsule 500 mg PO DAILY Rx Instructions: PEG tube ethambutol 400 mg tablet 1,200 mg feeding tube Q24H acetaminophen 325 mg Tablet 650 mg feeding tube Q6H PRN PRN (Reason: Pain 1-10 Or Fever>100.7) Eliquis 5 mg Tablet 5 mg feeding tube BID digoxin 250 mcg (0.25 mg) Tablet 250 mcg PO DAILY 30 Days Qty: 0 0RF metoprolol tartrate 25 mg Tablet 75 mg G-tube BID 30 Days Qty: 0 0RF Referrals / Follow Up: Tanya Pettit DO [Primary Care Provider] - Within 2 Weeks Chuckie Alicia MD [Med Staff - Active Staff] - Within 1 Month Disposition Disposition (needs filled in before D/C Order can be placed): Longterm Facility Charges/Coding Visit Charges Inpatient E&M: 30650 Disch Hosp >30min
[2025-07-08 09:15] VITALS: O2SAT 100
[2025-07-08 10:08] VITALS: BP 98/66; PULSE 77; RESP 16; TEMP 36.8; O2SAT 100
[2025-07-08] MEDS: ETHAMBUTOL HCL 400 MG TABLET 1200 MG PO (10:16)
[2025-07-08] MEDS: Lactobacillis Acidophilus 1 CAP GT (10:17)
[2025-07-08] MEDS: Cholecalciferol (VIT D3) 25 MCG TABLET (1,000 UNITS) GT (10:20)
--- NOTE | 2025-07-08 10:51 | NURSING ---
Report called to Elda at [facility], home meds sent w/ pt/transport team
--- NOTE | 2025-07-12 11:00 | CHAPLAIN ---
Type of Pastoral Visit ___ Initial Visit ___ Follow-up Visit ___ On-call Visit ___ General Patient Visit ___ Spiritual Assessment ___ Family Conference ___ Bereavement ___ Rapid Response ___ Code Blue ___ Other (describe below) Pastoral Care Referral From ___ Patient ___ Family ___ Nurse ___ Physician ___ Director Digital Catalogue ___ Digital Media Producer ___ Other (describe below) Sacrament/Intervention ___ Active listening ___ Anointing ___ Mu-Ism ___ Bereavement ___ Communion ___ Luli exploration ___ ___ Life review ___ Prayer ___ Reconciliation ___ Sacrament of Sick ___ Supportive presence ___ Wedding ___ Other (describe below) Pastoral Comments phone call was made to [place] [facility] for follow up visit as requested by patient; returned call and pt was not at [facility]; follow up with a second call and this time had found patient at another hospital and had already made the visit
[2025-07-18 22:07] LABS: Ca Oxalate, Dihydrate 30 % (.); Ca Oxalate, Monohydrate 70 % (.)
== END 2025-07-08 10:52 | DRG 693 ==
PROVIDERS: Urology; Admitting Provider Internal Medicine; PCP Internal Medicine; Visit Provider Internal Medicine
PROC: 0TJ98ZZ Inspection of Ureter, Via Natural or Artificial Opening Endoscopic (ICD-10-PCS; CPT 52352; principal; 2025-07-06 10:10)
DX: N20.2 Calculus of kidney with calculus of ureter (principal); G93.41 Metabolic encephalopathy; J18.9 Pneumonia, unspecified organism; E87.0 Hyperosmolality and hypernatremia; A31.1 Cutaneous mycobacterial infection; G82.20 Paraplegia, unspecified; T83.592A Infection and inflammatory reaction due to indwelling ureteral stent, initial encounter; N30.01 Acute cystitis with hematuria; R62.7 Adult failure to thrive; I48.0 Paroxysmal atrial fibrillation; I10 Essential (primary) hypertension; K76.0 Fatty (change of) liver, not elsewhere classified; E78.2 Mixed hyperlipidemia; K21.9 Gastro-esophageal reflux disease without esophagitis; R19.7 Diarrhea, unspecified; E66.3 Overweight; Z68.27 Body mass index [BMI] 27.0-27.9, adult; N40.0 Benign prostatic hyperplasia without lower urinary tract symptoms; M81.0 Age-related osteoporosis without current pathological fracture; Z79.52 Long term (current) use of systemic steroids; Z79.51 Long term (current) use of inhaled steroids; Z79.01 Long term (current) use of anticoagulants; Z79.899 Other long term (current) drug therapy; Z86.16 Personal history of COVID-19; Y73.2 Prosthetic and other implants, materials and accessory gastroenterology and urology devices associated with adverse incidents
CPT/HCPCS: 36415; 71045; 74176; 80048; 80053; 80162; 81001; 82274; 82360; 83630; 83735; 84100; 84443; 85025; 87086; 87088; 87493; 87506; 88300; 93005; 94002; 94640; 97803; J2185; A4216; C1758; C1769